=== PATIENT | female | born 1950 | race Caucasian/White ===

== ENCOUNTER → 2016-11-26 | Outpatient (CLI) | payer BC ==
[~2016-11-26] MED LIST: ASPCH81 PO; ATOR-54 PO; CHOL100027 PO; CLX/20 PO; HYDR12.56 PO; LEVO25TA PO; MULT-506 PO; PRED20TA PO
--- NOTE | 2016-11-26 13:29 | MAMMOGRAPHY REPORT ---
BILATERAL DIGITAL SCREENING MAMMOGRAM WITH CAD: 11/26/2016 CLINICAL HISTORY: Routine screening. Patient has no complaints. TECHNIQUE: Current study was also evaluated with a Computer Aided Detection (CAD) system. COMPARISON: Comparison is made to exams dated: 11/20/2015 mammogram, 11/17/2014 mammogram, 11/16/2013 mammogram, 11/13/2012 mammogram, and 05/05/2012 mammogram - [facility]. BREAST COMPOSITION: There are scattered areas of fibroglandular density in both breasts. FINDINGS: The parenchymal pattern is unchanged. No developing mass, architectural distortion or clu ster of suspicious microcalcifications is seen in either breast. IMPRESSION: ACR BI-RADS CATEGORY 2: BENIGN There is no mammographic evidence of malignancy. A 1 year screening mammogram is recommended. The p atient will receive written notification of the results. Approximately 10% of breast cancers are not detected with mammography. A negative mammographic repor t should not delay biopsy if a clinically suggestive mass is present. Shantel Funk M.D. ay/:11/26/2016 13:13:53 Notch Grinder: Chanda Guzmán, [facility] letter sent: Normal 1/2 BI-RADS Code: ACR BI-RADS Category 2: Benign
== END | disposition home or self-care (01) ==
LOC: C.MAMM 12:37
PROVIDERS: ATTEND Nurse Practitioner
DX: Z12.31 Encounter for screening mammogram for malignant neoplasm of breast (principal)

== ENCOUNTER 2016-12-06 21:19 | Emergency (ER) | payer BC ==
[~2016-12-06] VITALS: Ht 167.6 cm; Wt 88.3 kg
[~2016-12-06 21:19] MED LIST changes: -PRED20TA PO
[2016-12-06 21:29] VITALS: TEMP 37; Ht 167.6 cm; Wt 88.3 kg
[2016-12-06] MEDS ORDERED: OXYCODONE/ACETAMINOPHEN 5-325 TAB PO STA (22:11)
[2016-12-06] MEDS ORDERED: CIPROFLOXACIN HCL 0.3% OP SOLN 2.5 ML BTL OP ONE (22:15)
[2016-12-06] MEDS ORDERED: PRED20TA PO (22:19)
--- NOTE | 2016-12-06 22:22 | EMERGENCY ROOM VISIT NOTE ---
History Report prepared by Ashley: Shala Dailey Under the Supervision of: Dr. Matt Murry D.O. First contact with patient: 22:04 Chief Complaint: ALLERGIC REACTION Stated Complaint: EYES,REACTION TO SULFA EYE DROPS Nursing Triage Summary: patient reports she thought she had pink eye in right eye and used antibiotic drops from family,she reports it was sulfa and it is an allergy for her,patient eyes red and swollen History of Present Illness The patient is a 66 year old female who presents to the Emergency Room with complaints of a persistent allergic reaction with onset this evening. She rates her discomfort as a 6/10. The patient's family has recently had pink eye. This morning, the patient felt as if she had pink eye. She used some of the medicine her family had used. The patient used this medicine all day and noticed that her eyes started to become pink and swollen. When her read the ingredients on the bottle, they realized that the medication was a sulfa medication. She notes that she is allergic to medication. The patient has had a yellow discharge from her eyes. The patient did not take any Benadryl. Additionally, for about one week, the patient has had a sore throat. Source of History: patient Onset: this morning Position: eye Symptom Intensity: 6/10 Quality: other (allergic reaction) Timing: other (persistent) Associated Symptoms: + sorethroat Note: The patient has had a yellow discharge from her eyes. Review of Systems See HPI for pertinent positives & negatives. A total of 10 systems reviewed and were otherwise negative. Past Medical & Surgical Medical Problems: (1) GERD (gastroesophageal reflux disease) (2) Left bundle branch block Surgical Problems: (1) H/O cardiac catheterization (2) History of hysterectomy Family History Cancer Diabetes mellitus Heart disease Hypertension Social History Smoking Status: Never Smoker Alcohol Use: none Drug Use: none Marital Status: Occupation Status: employed Current/Historical Medications Scheduled Aspirin (Aspirin Tab-Chewable *), 81 MG PO DAILY Atorvastatin (Lipitor), 20 MG PO DAILY Cholecalciferol (Vitamin D 1000 Unit), 1,000 INTER.UNIT PO DAILY Citalopram (Citalopram Hydrobromide), 20 MG PO DAILY Hydrochlorothiazide (Hctz), 12.5 MG PO DAILY Levothyroxine Sodium (Synthroid), 25 MCG PO DAILY Multivitamin (Multivitamin), 1 TAB PO DAILY Prednisone (Prednisone), 2 TAB PO DAILY Allergies Coded Allergies: Sulfa Antibiotics (Verified Allergy, Unknown, UNKNOWN, 11/15/15) Albuterol (Verified Adverse Reaction, Unknown, racing heart, 11/15/15) Physical Exam Vital Signs Date Time Temp Pulse Resp B/P Pulse Ox O2 Delivery O2 Flow Rate FiO2 12/06/16 22:37 84 18 173/81 93 Room Air 12/06/16 21:29 37.0 55 18 145/92 96 Room Air Physical Exam CONSTITUTIONAL/VITAL SIGNS: Reviewed / noted above. GENERAL: Non-toxic in appearance. INTEGUMENTARY: Warm, dry, and [place]. HEAD: Normocephalic. EYES: Bilateral conjunctiva injection and scleral edema with a small amount of exudate. ENT/OROPHARYNX: clear and moist. LYMPHADENOPATHY/NECK: Is supple without lymphadenopathy or meningismus. RESPIRATORY: Lungs clear and equal. CARDIOVASCULAR: Regular rate and rhythm. GI/ABDOMEN: Soft and nontender. No organomegaly or pulsatile mass. No rebound or guarding. Normal bowel sounds. EXTREMITIES: Warm and well perfused. BACK: No CVA tenderness. NEUROLOGICAL: Intact without focal deficits. PSYCHIATRIC: normal affect. MUSCULOSKELETAL: Normally developed with good muscle tone. Medical Decision & Procedures Medications Administered Medications (Trade) Dose Ordered Sig/Terrence Route Start Time Stop Time Status Last Admin Dose Admin Prednisone (PredniSONE TAB) 60 mg NOW STAT PO 12/06/16 22:11 12/06/16 22:13 DC 12/06/16 22:20 60 MG Diphenhydramine HCl (Benadryl Cap) 50 mg NOW ONCE PO 12/06/16 22:15 12/06/16 22:16 DC 12/06/16 22:20 50 MG Ciprofloxacin HCl (Ciprofloxacin 0.3% Op Soln) 2 drops NOW ONCE OP 12/06/16 22:15 12/06/16 22:16 DC 12/06/16 22:19 2 DROPS Oxycodone/ Acetaminophen (Percocet 5-325mg Tab) 1 tab NOW STAT PO 12/06/16 22:11 12/06/16 22:13 DC 12/06/16 22:20 1 TAB ED Course 2204: Previous medical records were reviewed. The patient was evaluated in room B4. A complete history and physical examination was performed. 2210: Oxycodone/ Acetaminophen 1 tab PO, Prednisone 60 mg PO 2214: Ciprofloxacin HCl 2 drips OP, Benadryl Cap 50 mg PO 2219: On reevaluation, the patient is doing well. I discussed the results and findings with the patient. She verbalized agreement of the treatment plan. The patient was discharged home. Medical Decision The patient is a 66 year old female who presents to the ED with complaints of an allergic reaction. Differential diagnoses include: bacterial vs viral vs allergic causes. This is a 66-year-old female who presents to the ED with a chief complaint of bilateral conjunctival injection and scleral edema. The patient states that her daughter had pink eye and then her had pinkeye. She then developed pink eye this morning. She began using the antibiotic that her was using. It was soft lipase. She did not realize this until after she used several times today. She is allergic to sulfa antibiotics. As she was using them, she had increasing irritation to the eyes and some redness of the face around the eyes. Patient called her doctor came in for evaluation. The patient on exam has bilateral conjunctival injection as well as some exudate. She also has bilateral scleral edema. There is also some periorbital erythema. After evaluation, the patient was started on Benadryl and prednisone by mouth. She was given a Percocet and started on Ciloxan eyedrops. She is felt to be stable for discharge. She'll return for worsening. Impression Primary Impression: Conjunctivitis of both eyes Additional Impression: Allergic reaction Scribe Attestation The scribe's documentation has been prepared under my direction and personally reviewed by me in its entirety. I confirm that the note above accurately reflects all work, treatment, procedures, and medical decision making performed by me. Departure Information Dispostion Home / Self-Care Prescriptions Prednisone (Prednisone) 20 Mg Tab 2 TAB PO DAILY for 4 Days, #8 TAB Prov: Matt Murry D.O. 12/06/16 Referrals Rocio Hinojosa M.D. (PCP) Patient Instructions Conjunctivitis Infec Cause, ED Allergic Conjunctivitis, My [facility] Additional Instructions Take Benadryl 50mg every 6 hours for allergic reaction. Ciloxan eye drops: 2 drops to the eyes every 2-3 hours while awake. Prednisone as prescribed. Problem Qualifiers
[2016-12-06 22:37] VITALS: BP 173/81; PULSE 84; O2SAT 93
== END 2016-12-06 22:38 | disposition home or self-care (01) ==
LOC: C.EDB 21:20
DX: H10.9 Unspecified conjunctivitis (principal); T78.40XA Allergy, unspecified, initial encounter; K21.9 Gastro-esophageal reflux disease without esophagitis; I44.7 Left bundle-branch block, unspecified; Z90.710 Acquired absence of both cervix and uterus; Z79.82 Long term (current) use of aspirin; Z80.9 Family history of malignant neoplasm, unspecified; Z83.3 Family history of diabetes mellitus

== ENCOUNTER → 2017-04-11 | Outpatient (CLI) | payer BC ==
[2017-04-11 18:57] LABS: BLOOD UREA NITROGEN 20 mg/dl (7-18); BUN/CREATININE RATIO 24.3 (10-20); CARBON DIOXIDE 28 mmol/L (21-32); CHLORIDE 106 mmol/L (98-107); CREATININE 0.83 mg/dl (0.60-1.20); GLUCOSE 132 mg/dl (70-99); POTASSIUM 3.7 mmol/L (3.5-5.1); SODIUM 142 mmol/L (136-145)
[2017-04-11 18:58] LABS: CALCIUM 9.2 mg/dl (8.5-10.1)
== END | disposition home or self-care (01) ==
LOC: C.LABPVFM 14:53
PROVIDERS: ATTEND Nurse Practitioner
DX: M85.80 Other specified disorders of bone density and structure, unspecified site (principal); I10 Essential (primary) hypertension

== ENCOUNTER → 2017-10-07 | Outpatient (CLI) | payer BC | END | disposition home or self-care (01) | LOC: C.LABPVFM 10:37 | PROVIDERS: ATTEND Nurse Practitioner | DX: E03.9 Hypothyroidism, unspecified (principal) ==

== ENCOUNTER → 2017-11-28 | Outpatient (CLI) | payer BC ==
--- NOTE | 2017-12-01 07:39 | MAMMOGRAPHY REPORT ---
BILATERAL DIGITAL SCREENING MAMMOGRAM TOMOSYNTHESIS WITH CAD: 11/28/2017 CLINICAL HISTORY: Routine screening. Patient has no complaints. TECHNIQUE: Breast tomosynthesis in addition to standard 2D mammography was performed. Current study was also evaluated with a Computer Aided Detection (CAD) system. COMPARISON: Comparison is made to exams dated: 11/26/2016 mammogram, 11/20/2015 mammogram, 11/17/2014 m ammogram, 11/16/2013 mammogram, 11/13/2012 mammogram, and 05/12/2012 ultrasound - [facility]. BREAST COMPOSITION: There are scattered areas of fibroglandular density in both breasts. FINDINGS: No suspicious masses, calcifications, or areas of architectural distortion are noted in ei ther breast. There has been no significant interval change compared to prior exams. IMPRESSION: ACR BI-RADS CATEGORY 1: NEGATIVE There is no mammographic evidence of malignancy. A 1 year screening mammogram is recommended. The pa tient will receive written notification of the results. Approximately 10% of breast cancers are not detected with mammography. A negative mammographic report should not delay biopsy if a clinically suggestive mass is present. Hanane Huang M.D. /:11/28/2017 14:55:18 Jd Edwards: Cahnda Guzmán [facility] letter sent: Normal /2 BI-RADS Code: ACR BI-RADS Category 1: Negative
== END | disposition home or self-care (01) ==
LOC: C.MAMM 13:43
PROVIDERS: ATTEND Nurse Practitioner
DX: Z12.31 Encounter for screening mammogram for malignant neoplasm of breast (principal)

== ENCOUNTER 2020-03-21 22:33 | Inpatient (IN) ==
[2020-03-21] MEDS ORDERED: SODIUM CHLORIDE 0.9% 1000ML 500 ML IV ONE (22:55)
[2020-03-21] MEDS ORDERED: dilTIAZem HCl 5 MG/ML 5 ML VIAL IV STA (22:55)
[2020-03-21] MEDS ORDERED: dilTIAZem HCL 125 MG in DEXTROSE 5% 100 ML IV SCH (23:00)
--- NOTE | 2020-03-21 23:01 | Emergency Department Note ---
Impression & Plan Atrial fibrillation, Enteritis, Palpitations, Elevated liver enzymes, Hypokalemia, Thrombocytopenia, Neutropenia ED Provider Note NAME: KANE MOJICA AGE: 69 SEX: F : 1950 ARRIVES VIA: Ambulance INFORMANT: [Patient][ems, nurses] ED PROVIDER(S): [Asif Silverman MD] CHIEF COMPLAINT: Palpitations HISTORY OF PRESENT ILLNESS: The patient is a 69-year-old female who presents with just over 2 hours of palpitations and a fast heart rate. She was slightly short of breath and weak. No real chest pain. The patient presents by EMS. The patient was here 2 days ago and diagnosed with enteritis. This was diagnosed by lab work and CT. The patient had been vomiting. The patient states that her enteritis actually seems to be getting better. She is tolerating oral intake, no further vomiting. She is still running a low- grade fever though at times. There has been no diarrhea. The patient did take a nitroglycerin at home. She has never had to use this medication before. It really did not help her symptoms. The patient denies current chest pain. She feels better than she did before arrival. She still feels her heart beating quick and sometimes irregular. She has no history of A. fib or A flutter. She has had no sick contacts. No known coronavirus exposures however, she does have a coronavirus test pending from 2 days ago. REVIEW OF SYSTEMS: See HPI for pertinent positives and negatives. A total of ten systems were reviewed and were otherwise negative. PMHx/PSHx: See Below SOCIAL HISTORY: See Below. PHYSICAL EXAM: GENERAL: Patient is in no acute distress. HEENT: No acute trauma, normocephalic atraumatic, mucous membranes moist, no nasal congestion, no scleral icterus. NECK: No stridor, no adenopathy, no meningismus, trachea is midline. LUNGS: Clear to auscultation bilaterally, no wheeze, no rhonchi, breath sounds equal. HEART: No murmurs, tachycardic with an irregular rhythm. ABDOMEN: Soft, nontender, bowel sounds positive, no hernias, no peritonitis. EXTREMITIES: No cyanosis or edema, full range of motion of all the joints without pain or difficulty, no signs for acute trauma. NEUROLOGIC: Oriented x 3, no acute motor or sensory deficits, no focal weakness. SKIN: No rash, no jaundice, no diaphoresis. DIFFERENTIAL DIAGNOSIS: Infection, dehydration, metabolic abnormality, A. fib or a flutter, dysrhythmia, IA, coronavirus, hypo/hyperglycemia, electrolyte disturbance, anemia, hypoxia, c ardiac sources, intracerebral event, toxicologic, neurologic, as well as other pathologies. EMERGENCY DEPARTMENT COURSE/PROCEDURES: ECG: Indication was palpitations. The EKG shows atrial fibrillation with a left bundle branch block. The rate is 127. QTc is 560. There are some subtle ST elevations consistent with the bundle branch block. There are no PVCs. Repeat EKG: Indication was palpitations. There is a normal sinus rhythm with a rate of 69. The QTc is 467. There is a left bundle branch block. No ST elevation, no PVCs. Compared to the EKG from earlier today, the rate is now decreased. There is a normal sinus rhythm in place of atrial fibrillation. Continuous Cardiac Monitoring: An order was placed for continuous cardiac monitoring. The monitor shows a rate of 70 with normal sinus rhythm. Critical Care Note: I have personally spent greater than 32 minutes of critical care time in the direct management of this patient. This includes bedside care, interpretation of diagnostic studies, and testing, discussion with consultants, patient, and family members, and other required patient management activities. This 32 minutes is in excess of all separately billable procedures. MEDICAL DECISION MAKING: There is a low white blood cell count. The patient is technically neutropenic. Platelet count is also low at 79. There is no anemia. No coagulopathy. Potassium somewhat low at 3.3, no kidney failure. The patient does have liver enzyme elevations, the bilirubin though is normal. Cardiac enzyme testing x1 is not consistent with acute cardiac injury. The patient's TSH level was high, the T4 though was normal. Chest film does not show pneumonia or CHF. EKG showed a rapid A. fib with a left bundle branch block. I repeat EKG showed conversion to a sinus rhythm. The patient received IV saline, 500 cc. She was given IV potassium. The patient spontaneously converted to a sinus rhythm during her ED stay. She is currently resting fairly comfortably. The patient presents with palpitations and was found to be in rapid A. fib. She self converted to a sinus rhythm. She has findings on her laboratory testing indicating neutropenia. She has elevated liver enzymes. I do think a hospital stay is warranted. She needs further monitoring and work-up. Of note, because of the lower platelet count and reported fever, I have ordered for anaplasmosis testing. This result is pending. Of note, the patient has been in isolation as she has a pending coronavirus test. She has no cough or congestion. Case management has been involved. The patient is aware of her findings thus far. The on-call hospitalist was consulted. The reason for her entire presentation and symptom complex is currently unclear. Past Med/Surg History Medical History Concussion (Inactive) GERD (gastroesophageal reflux disease) Hemorrhoids History of coronary artery disease Hyperlipidemia (Chronic) Hypertension (Chronic) Hypothyroidism (Chronic) Infected lesion in nose Left bundle branch block INEZ (obstructive sleep apnea) (Chronic) Surgical History H/O cardiac catheterization History of back surgery History of bilateral oophorectomy History of hernia surgery Hx of hysterectomy Family History Father Hypertension Heart disease Mother Stroke Other Breast cancer Myocardial infarction No family history of adverse response to anesthesia No family history of bleeding disorder Denies family history of Ovarian cancer Prostate cancer Colorectal cancer Social History Preferred Language: Sami marital status: Current Living Situation: Spouse current occupational status: retired Feels Safe at Home: Yes Smoking Status: Never smoker Hx Alcohol Use: Yes Alcohol type: wine Alcohol Intake Frequency: Holidays/Special Occasions Hx Substance Use: No caffeine: Yes Dental Care, Regularly: Yes Physical Activity Frequency: 1-2 Times per Week Seatbelt Use: always Sunscreen Use: Yes Allergies Allergies Allergy/AdvReac Type Severity Reaction Status Date / Time Sulfa (Sulfonamide Allergy Unknown UNKNOWN Verified 03/21/20 22:58 Antibiotics) citalopram [From Celexa] Allergy Unknown Verified 03/21/20 22:58 albuterol AdvReac Unknown racing Verified 03/21/20 22:58 heart Home Meds Home Medications Medication Instructions Recorded Confirmed aspirin 81 mg tablet,delayed 81 mg PO PM 07/24/19 03/21/20 release hydrochlorothiazide 12.5 mg capsule 12.5 mg PO QAM 07/24/19 03/21/20 multivitamin 1 tab PO PM 07/24/19 03/21/20 cholecalciferol (vitamin D3) 25 2,000 units PO PM 07/26/19 03/21/20 mcg (1,000 unit) capsule nitroglycerin 0.4 mg sublingual 0.4 mg SL Q5M PRN 07/26/19 03/21/20 tablet psyllium husk 3.4 gram/5.4 gram 1 tbs PO DAILY PRN 03/10/20 03/21/20 oral powder atorvastatin 20 mg PO HS 03/19/20 03/21/20 diclofenac sodium 75 mg PO BID 03/19/20 03/21/20 levothyroxine 25 mcg PO QAM 03/19/20 03/21/20 sertraline [Zoloft] 50 mg PO PM 03/19/20 03/21/20 lorazepam 1 mg PO Q8 PRN 03/21/20 03/21/20 Results & Data (ED) Vital Signs Vital Signs - 24 hr 03/21/20 22:35 03/21/20 22:49 03/21/20 22:52 Temperature 37 C Temperature Source Oral Pulse Rate 115 H Pulse Rate [Apical] 74 Pulse Rhythm Regular Irregular Pulse Strength Normal Respiratory Rate 22 22 Respiratory Effort / Characteristics Non-Labored Spontaneous Respiratory Depth Normal Respiratory Pattern Regular Blood Pressure 147/102 H Blood Pressure [Right Arm] 112/73 Blood Pressure Mean 117 Blood Pressure Mean [Right Arm] 86 Blood Pressure Position Lying Pulse Oximetry 96 96 Oxygen Delivery Method Room Air Room Air Room Air Sepsis Recent Fever Within 48 Hours Yes Sepsis New/Unexplained Change in Mental Status No Sepsis Action Taken by Nursing Physician Notified 03/22/20 00:10 03/22/20 00:32 Temperature Temperature Source Pulse Rate Pulse Rate [Apical] 75 67 Pulse Rhythm Pulse Strength Respiratory Rate 12 15 Respiratory Effort / Characteristics Respiratory Depth Respiratory Pattern Blood Pressure Blood Pressure [Right Arm] 143/92 H 136/79 Blood Pressure Mean Blood Pressure Mean [Right Arm] 109 98 Blood Pressure Position Pulse Oximetry 97 97 Oxygen Delivery Method Room Air Room Air Sepsis Recent Fever Within 48 Hours Sepsis New/Unexplained Change in Mental Status Sepsis Action Taken by Mcfp Medications Current Medication List: was personally reviewed by me Laboratory Data Attestation: I reviewed the patient's lab results. Result diagrams: 03/21/20 23:42 03/21/20 23:42 Lab Results 03/21/20 03/21/20 03/21/20 Range/Units 23:42 23:42 23:42 WBC 1.32 L (4.8-10.8) K/uL RBC 4.10 L (4.2-5.4) M/uL Hgb 13.1 (12.0-16.0) g/dL Hct 38.5 (37-47) % MCV 93.9 (80-100) fL MCH 32.0 (25-34) pg MCHC 34.0 (32-36) g/dL RDW Std Deviation 47.9 H (36.4-46.3) fL RDW Coeff of Vito 13.9 (11.5-14.5) % Plt Count 79 L (130-400) K/uL MPV 12.0 H (7.4-10.4) fL Immature Gran % (Auto) 0.0 % Neut % (Auto) 44.7 % Lymph % (Auto) 40.9 % Mcminn % (Auto) 12.9 % Eos % (Auto) 0.0 % Baso % (Auto) 1.5 % Immature Gran # (Auto) 0.00 (0.00-0.02) K/uL Neut # (Auto) 0.59 L* (1.4-6.5) K/uL Lymph # (Auto) 0.54 L (1.2-3.4) K/uL Mcminn # (Auto) 0.17 (0.11-0.59) K/uL Eos # (Auto) 0.00 (0-0.5) K/uL Baso # (Auto) 0.02 (0-0.2) K/uL Platelet Estimate Decreased L (Normal) PT 10.7 (9.0-12.0) Seconds INR 1.0 (0.9-1.1) APTT 27.0 (21.0-31.0) Seconds PTT Ratio 1.0 Sodium 142 (136-145) mmol/L Potassium 3.3 L (3.5-5.1) mmol/L Chloride 110 H (98-107) mmol/L Carbon Dioxide 25 (21-32) mmol/L Anion Gap 7.0 (3-11) BUN 17 (7-18) mg/dl Creatinine 0.79 (0.6-1.2) mg/dl Est Cr Clr Drug Dosing 78.6 ml/min Est GFR ( Amer) 88.5 Est GFR (Non-Af Amer) 76.4 BUN/Creatinine Ratio 21.0 H (10-20) Glucose 141 H (70-99) mg/dl Calcium 8.2 L (8.5-10.1) mg/dl Magnesium 2.0 (1.8-2.4) mg/dl Total Bilirubin 0.6 (0.2-1) mg/dl AST 186 H (15-37) U/L ALT 168 H (12-78) U/L Alkaline Phosphatase 177 H (45-117) U/L Troponin I < 0.015 (0-0.045) ng/ml Total Protein 7.0 (6.4-8.2) gm/dl Albumin 3.1 L (3.4-5.0) gm/dl Globulin 3.9 (2.5-4.0) gm/dl Albumin/Globulin Ratio 0.8 L (0.9-2) TSH 6.600 H (0.300-4.500) uIu/ml Free T4 1.23 (0.8-1.6) ng/dl Administered Medications Diltiazem HCl 125 mg/ Dextrose 125 mls @ 5 mls/hr IV .Q24H [facility]; Protocol Stop: 04/20/20 22:59 Last Admin: 03/21/20 23:55 Dose: Not Given Documented by: [id number] Potassium Chloride (K Oniel / Wtr) 10 meq in 100 mls @ 100 mls/hr IV ONE ONE Stop: 03/22/20 01:12 Last Admin: 03/22/20 00:32 Dose: 100 mls/hr Documented by: [id number] Discontinued Medications Diltiazem HCl (Cardizem) 15 mg IV NOW STA Stop: 03/21/20 22:56 Last Admin: 03/21/20 23:55 Dose: Not Given Documented by: [id number] Sodium Chloride (Nss 1000ml) 500 mls @ 999 mls/hr IV .Q31M ONE Stop: 03/21/20 23:25 Last Infusion: 03/21/20 23:56 Dose: 0 mls/hr Documented by: [id number] Admin: 03/21/20 23:00 Dose: 999 mls/hr Documented by: [id number] Imaging Data Attestation: I personally reviewed and interpreted this imaging study as follows: My Impression: Chest film: The patient does not have any pneumonia, CHF or pneumothorax. There is no mediastinal widening. The lungs appear clear. Blood Pressure Blood Pressure Findings: Elevated blood pressure Blood Pressure Disposition: further management by hospitalist Discharge Plan Visit Data Chief Complaint: Chest Pain Stated Complaint: CHEST PAIN, SOB ED Provider: Asif Silverman Discharge Problem: Atrial fibrillation, Enteritis, Palpitations, Elevated liver enzymes, Hypokalemia, Thrombocytopenia, Neutropenia Patient Disposition: Being Evaluated by Hospitalist Condition: Good Forms Stand Alone Forms: My [facility] [employer] Prescriptions Prescriptions: No Action aspirin 81 mg tablet,delayed release (DR/EC) 81 mg PO PM RF: 0 hydrochlorothiazide 12.5 mg capsule 12.5 mg PO QAM RF: 0 multivitamin tablet 1 tab PO PM RF: 0 nitroglycerin 0.4 mg tablet, sublingual 0.4 mg SL Q5M PRN (Reason: Chest Pain) RF: 0 cholecalciferol (vitamin D3) 1,000 unit capsule 2,000 units PO PM RF: 0 Metamucil 3.4 gram/5.4 gram powder 1 tbs PO DAILY PRN (Reason: Constipation) RF: 0 atorvastatin 20 mg tablet 20 mg PO HS RF: 0 levothyroxine 25 mcg tablet 25 mcg PO QAM RF: 0 diclofenac sodium 75 mg tablet,delayed release (DR/EC) 75 mg PO BID RF: 0 sertraline [Zoloft] 50 mg tablet 50 mg PO PM RF: 0 lorazepam 1 mg Tablet 1 mg PO Q8 PRN (Reason: Anxiety) RF: 0 Referrals Referrals: Jeanine Reyes CRNP [Primary Care Provider] - Discharge Problem: Atrial fibrillation Qualifiers: Atrial fibrillation type: paroxysmal Qualified Code(s): I48.0 - Paroxysmal atrial fibrillation Neutropenia Qualifiers: Neutropenia type: unspecified Qualified Code(s): D70.9 - Neutropenia, unspecified
[2020-03-22 00:08] LABS: Prothrombin Time 10.7 Seconds (9.0-12.0)
[2020-03-22 00:09] LABS: Alanine Aminotransferase 168 U/L (12-78); Albumin Level 3.1 gm/dl (3.4-5.0); Aspartate Aminotransferase 186 U/L (15-37); Blood Urea Nitrogen 17 mg/dl (7-18); Calcium 8.2 mg/dl (8.5-10.1); Carbon Dioxide 25 mmol/L (21-32); Chloride 110 mmol/L (98-107); Creatinine Clr Calc Pharmacy 78.6 ml/min; Est GFR (African American) 88.5; Est GFR (Non-African American) 76.4; Glucose 141 mg/dl (70-99); Potassium 3.3 mmol/L (3.5-5.1); Sodium 142 mmol/L (136-145)
[2020-03-22] MEDS ORDERED: POTASSIUM CHLORIDE / WTR 10 MEQ/100 ML PLCT IV ONE (00:13)
[2020-03-22 00:20] LABS: Albumin Globulin Ratio 0.8 (0.9-2); Alkaline Phosphatase 177 U/L (45-117); Bilirubin,Total 0.6 mg/dl (0.2-1); Globulin 3.9 gm/dl (2.5-4.0); Troponin I < 0.015 ng/ml (0-0.045)
[2020-03-22 00:32] LABS: T4 Free Thyroxine 1.23 ng/dl (0.8-1.6)
[2020-03-22 00:40] LABS: Hematocrit (blood only) 38.5 % (37-47); Hemoglobin 13.1 g/dL (12.0-16.0); Mean Corpuscular Volume 93.9 fL (80-100); Platelet Count 79 K/uL (130-400); RDW Coefficient of Variation 13.9 % (11.5-14.5); RDW Standard Deviation 47.9 fL (36.4-46.3); White Blood Count 1.32 K/uL (4.8-10.8)
[2020-03-22 00:43] LABS: Basophils # (auto) 0.02 K/uL (0-0.2); Basophils % (auto) 1.5 %; Lymphocytes # (auto) 0.54 K/uL (1.2-3.4); Lymphocytes % (auto) 40.9 %; Monocytes # (auto) 0.17 K/uL (0.11-0.59); Monocytes % (auto) 12.9 %; Neutrophils # (auto) 0.59 K/uL (1.4-6.5); Neutrophils % (auto) 44.7 %; Platelet Estimate Decreased (Normal)
[2020-03-22] MEDS ORDERED: DOXYCYCLINE HYCLATE 100 MG in DEXTROSE 5% 100 ML IV STA (02:19)
--- NOTE | 2020-03-22 03:51 | History & Physical Report ---
Date of Service March 22, 2020 Assessment & Plan (1) Atrial fibrillation with rapid ventricular response: New onset atrial fibrillation with RVR/CAD/hypertension/LBBB- The patient will be admitted to telemetry for serial cardiac enzymes, serial EKG's, cardiac rhythm monitoring and a 2-D echocardiogram with Dopplers. Responded in the ED to diltiazem 15 mg IV, and then diltiazem drip at 5 mg/h. For now, continue. Optimize potassium both orally and IV Repeat laboratories in a.m. Continue aspirin 81 mg daily. Hold diclofenac and HCTZ. Present on Admission?: Yes (2) Neutropenia: Neutropenia/thrombocytopenia/generalized myalgias and arthralgias/fatigue/elevated liver enzymes- Patient is exposed to ticks where she lives, but is unaware of any direct tick bite. We will check testing for anaplasmosis the antibodies and peripheral smear, Ehrlichiosis and Lyme disease. Empiric treatment with doxycycline 100 mg IV now and then every 12 hours. COVID-19 testing was ordered on 03/19/2020, and is still pending at this time. Patient will be admitted with neutropenic/airborne/droplet precautions. Present on Admission?: Yes (3) Thrombocytopenia: See above Present on Admission?: Yes (4) Elevated liver enzymes: Increased AST and ALT compared to 2 days previously. Likely part of the symptom complex of anaplasmosis, however, will check acute hepatitis profile. Repeat laboratories in a.m. Present on Admission?: Yes (5) CAD in tribe artery: See above Present on Admission?: Yes (6) Depression with anxiety: Continue sertraline 50 mg every evening Present on Admission?: Yes (7) Hyperlipidemia: Continue atorvastatin 20 mg at bedtime Present on Admission?: Yes (8) Hypothyroidism: Continue levothyroxine sodium 25 mcg every morning Present on Admission?: Yes (9) Hypertension: See above Present on Admission?: Yes (10) Left bundle branch block: See above Present on Admission?: Yes (11) INEZ (obstructive sleep apnea): CPAP if needed Present on Admission?: Yes History of Present Illness Chief Complaint: The patient presents to the emergency department with complaint of rapid heart rate and palpitations that began about 2 hours prior to arrival. Primary Care Provider: MYRIAM Casillas The patient is a 69-year-old female with a past medical history including CAD, anxiety with depression, GERD, osteopenia, obstructive sleep apnea, left bundle branch block, hypo-thyroidism, hypertension and hyperlipidemia. She initially presented to the emergency department on 03/19/2020 with complaint of nausea and vomiting, and underwent laboratory studies and CT of abdomen pelvis which suggested an enteritis. Patient reports those symptoms have almost completely resolved at this point, she is had no further vomiting, and is having normal intake at this time. In the emergency department tonight, EKG and monitor showed atrial fibrillation with RVR, for which, the patient received kaizen 15 mg IV push, followed by diltiazem infusion at 5 mg/h, with conversion of her heart rate to normal sinus rhythm. Laboratories also revealed new findings from most recent labs 2 days ago, which include: Abnormal AST 186 and ALT 168. ANC has decreased from 1.78-0.59, and platelets have decreased to 89. Potassium is decreased from 3.7-3.3. The patient continues to have significant generalized myalgias and arthralgias. Upon questioning, she does report living in an area where there are significant number of ticks, but denies any overt tick bite that she is aware of. Allergies Allergy/AdvReac Type Severity Reaction Status Date / Time Sulfa (Sulfonamide Allergy Unknown UNKNOWN Verified 03/21/20 22:58 Antibiotics) citalopram [From Celexa] Allergy Unknown Verified 03/21/20 22:58 albuterol AdvReac Unknown racing Verified 03/21/20 22:58 heart Home Medications Home Medications Medication Instructions Recorded Confirmed Type aspirin 81 mg tablet,delayed 81 mg PO PM 07/24/19 03/21/20 History release hydrochlorothiazide 12.5 mg capsule 12.5 mg PO QAM 07/24/19 03/21/20 History multivitamin 1 tab PO PM 07/24/19 03/21/20 History cholecalciferol (vitamin D3) 25 2,000 units PO PM 07/26/19 03/21/20 History mcg (1,000 unit) capsule nitroglycerin 0.4 mg sublingual 0.4 mg SL Q5M PRN 07/26/19 03/21/20 History tablet psyllium husk 3.4 gram/5.4 gram 1 tbs PO DAILY PRN 03/10/20 03/21/20 History oral powder atorvastatin 20 mg PO HS 03/19/20 03/21/20 History diclofenac sodium 75 mg PO BID 03/19/20 03/21/20 History levothyroxine 25 mcg PO QAM 03/19/20 03/21/20 History sertraline [Zoloft] 50 mg PO PM 03/19/20 03/21/20 History lorazepam 1 mg PO Q8 PRN 03/21/20 03/21/20 History Past Med/Surg History Medical History Concussion (Inactive) GERD (gastroesophageal reflux disease) Hemorrhoids History of coronary artery disease Hyperlipidemia (Chronic) Hypertension (Chronic) Hypothyroidism (Chronic) Infected lesion in nose Left bundle branch block INEZ (obstructive sleep apnea) (Chronic) Surgical History H/O cardiac catheterization History of back surgery History of bilateral oophorectomy History of hernia surgery Hx of hysterectomy Family History Father Hypertension Heart disease Mother Stroke Other Breast cancer Myocardial infarction No family history of adverse response to anesthesia No family history of bleeding disorder Denies family history of Ovarian cancer Prostate cancer Colorectal cancer Social History Preferred Language: Senegalese marital status: Current Living Situation: Spouse current occupational status: retired Feels Safe at Home: Yes Smoking Status: Never smoker Hx Alcohol Use: Yes Alcohol type: wine Alcohol Intake Frequency: Holidays/Special Occasions Hx Substance Use: No caffeine: Yes Dental Care, Regularly: Yes Physical Activity Frequency: 1-2 Times per Week Seatbelt Use: always Sunscreen Use: Yes Review of Systems Review of Systems: The patient denies lower extremity swelling, sore throat, fevers, chills, sweats, nausea, vomiting, diarrhea , constipation, abdominal pain, pelvic pain, blood in urine or stool, dysuria, urinary frequency or urgency, lightheadedness, dizziness, headache, memory loss, loss of consciousness, rash, abnormal bruising or bleeding, imbalance, focal or generalized weakness, numbness or tingling in arms or legs, or night sweats. The review of systems is otherwise negative other than for that already noted above, and at least 10 systems have been reviewed. Physical Exam Physical Exam: The patient is awake, alert and oriented 3, well developed and well nourished, normocephalic and atraumatic, lying in bed and in no acute distress. HEENT--PERRL, EOMI, mucous membranes and oropharynx normal. Neck--supple. No JVD. No bruits. Thyroid normal, trachea midline, no adenopathy. Heart--normal S1 and S2. No murmurs, rubs or gallops. Lungs--clear bilaterally, no respiratory distress, no accessory muscle use. Abdomen--normal bowel sounds and soft. Nontender. Nondistended. Extremities--no cyanosis or clubbing. No edema. Dermatologic--normal skin turgor, normal color, no abnormal lymph nodes, no rash. Neurologic--cranial nerves II through XII grossly intact. Rheumatologic--normal range of motion. Psychiatric--normal affect. Results & Data Results & Data ([facility]) Vital Signs (Past 12 Hours) Vital Signs Temp Pulse Pulse Resp BP BP Pulse Ox 03/22/20 03:18 65 17 139/76 95 03/22/20 02:30 62 13 141/84 H 97 03/22/20 01:19 73 23 139/83 97 03/22/20 00:32 67 15 136/79 97 03/22/20 00:10 75 12 143/92 H 97 03/21/20 22:49 98.6 F 115 H 22 147/102 H 96 03/21/20 22:35 74 22 112/73 96 Laboratory Results Laboratory Results WBC 1.32 K/uL (4.8-10.8) L 03/21/20 23:42 RBC 4.10 M/uL (4.2-5.4) L 03/21/20 23:42 Hgb 13.1 g/dL (12.0-16.0) 03/21/20 23:42 Hct 38.5 % (37-47) 03/21/20 23:42 MCV 93.9 fL (80-100) 03/21/20 23:42 MCH 32.0 pg (25-34) 03/21/20 23:42 MCHC 34.0 g/dL (32-36) 03/21/20 23:42 RDW Std Deviation 47.9 fL (36.4-46.3) H 03/21/20 23:42 RDW Coeff of Vito 13.9 % (11.5-14.5) 03/21/20: Plt Count 79 K/uL (130-400) L 03/21/20: MPV 12.0 fL (7.4-10.4) H 03/21/20 23: Immature Gran % (Auto) 0.0 % 03/21/20 23: Neut % (Auto) 44.7 % 03/21/20 23: Lymph % (Auto) 40.9 % 03/21/20 23: [place] % (Auto) 12.9 % 03/21/20: Eos % (Auto) 0.0 % 03/21/20: Baso % (Auto) 1.5 % 03/21/20: Immature Gran # (Auto) 0.00 K/uL (0.00-0.02) 03/21/20: Neut # (Auto) 0.59 K/uL (1.4-6.5) L* 03/21/20: Lymph # (Auto) 0.54 K/uL (1.2-3.4) L 03/21/20 23: [place] # (Auto) 0.17 K/uL (0.11-0.59) 03/21/20: Eos # (Auto) 0.00 K/uL (0-0.5) 03/21/20: Baso # (Auto) 0.02 K/uL (0-0.2) 03/21/20: Platelet Estimate Decreased (Normal) L 03/21/20: PT 10.7 Seconds (9.0-12.0) 03/21/20: INR 1.0 (0.9-1.1) 03/21/20: APTT 27.0 Seconds (21.0-31.0) 03/21/20: PTT Ratio 1.0 03/21/20 23: Sodium 142 mmol/L (136-145) 03/21/20: Potassium 3.3 mmol/L (3.5-5.1) L 03/21/20: Chloride 110 mmol/L (98-107) H 03/21/20 23:42 Carbon Dioxide 25 mmol/L (21-32) 03/21/20 23:42 Anion Gap 7.0 (3-11) 03/21/20 23:42 BUN 17 mg/dl (7-18) 03/21/20 23:42 Creatinine 0.79 mg/dl (0.6-1.2) 03/21/20 23:42 Est Cr Clr Drug Dosing 78.6 ml/min 03/21/20 23:42 Est GFR ( Amer) 88.5 03/21/20 23:42 Est GFR (Non-Af Amer) 76.4 03/21/20 23:42 BUN/Creatinine Ratio 21.0 (10-20) H 03/21/20 23:42 Glucose 141 mg/dl (70-99) H 03/21/20 23:42 Calcium 8.2 mg/dl (8.5-10.1) L 03/21/20 23:42 Magnesium 2.0 mg/dl (1.8-2.4) 03/21/20 23:42 Total Bilirubin 0.6 mg/dl (0.2-1) 03/21/20 23:42 AST 186 U/L (15-37) H 03/21/20 23:42 ALT 168 U/L (12-78) H 03/21/20 23:42 Alkaline Phosphatase 177 U/L (45-117) H 03/21/20 23:42 Troponin I < 0.015 ng/ml (0-0.045) 03/21/20 23:42 Total Protein 7.0 gm/dl (6.4-8.2) 03/21/20 23:42 Albumin 3.1 gm/dl (3.4-5.0) L 03/21/20 23:42 Globulin 3.9 gm/dl (2.5-4.0) 03/21/20 23:42 Albumin/Globulin Ratio 0.8 (0.9-2) L 03/21/20 23:42 TSH 6.600 uIu/ml (0.300-4.500) H 03/21/20 23:42 Free T4 1.23 ng/dl (0.8-1.6) 03/21/20 23:42 Diagnostic Findings [facility], [place] [phone] CT Scan Report Patient: KANE MOJICA EAdmit Date: 03/19/20 MR#: [id number]: [id number] [facility] Acct ID:[id number]: Date: 1950City Zip: [place] [address] Age: 69Location: ED Sex: F Room/Bed: Att Phy:Diagnosis: FEVER CHILLS TIRED VOMITING Jody Phy: Jeanine Reyes CRNPService Date: 03/19/20 Fam Phy:Interpreting Phy: Jimmy Hanna MD Admit Phy: Ordering Phy: Sai Barros MD cc: ~ CT OF THE ABDOMEN AND PELVIS WITHOUT CONTRAST CLINICAL HISTORY: vomiting, LLQ abd pain COMPARISON STUDY: CT of the abdomen and pelvis February 13, 2010. Abdominal series November 15, 2015. TECHNIQUE: Axial images of the abdomen and pelvis were obtained without IV contrast. Images were reviewed in the axial, sagittal, and coronal planes. Automated exposure control was utilized for the study. A dose lowering technique was utilized adhering to the principles of ALARA. FINDINGS: Imaged portions of the lower chest demonstrate innumerable small groundglass nodules that measure up to 5 mm. Many of these appear cavitary/cystic. No pneumatosis, free air or portal venous gas is present. An 8 mm hypodense segment 8 hepatic lesion is likely benign but suboptimally assessed on this unenhanced exam. The spleen, adrenal glands, kidneys and pancreas are unremarkable. There are no urinary calculi. There is no hydronephrosis. Trace ascites within the pelvis is noted. The appendix is normal. There is minimal infiltration adjacent to several left lower quadrant small bowel loops. There is possible mild bowel wall thickening, suboptimally assessed on this unenhanced exam. There is no evidence for a bowel obstruction. No lymphadenopathy is present. No biliary or pancreatic ductal dilatation is present. IMPRESSION: 1. Minimal mesenteric infiltration associated with several left lower quadrant small bowel loops with possible mild bowel wall thickening. The findings suggest a nonspecific enteritis. Trace ascites within the pelvis. No bowel obstruction. Normal appendix. 2. No urinary calculi or hydronephrosis. 3. Numerous tiny groundglass nodules within the lower lungs, many of which are cystic/cavitary. These are nonspecific and a nonemergent chest CT is recommended. ACT 112: Negative or not required by law. Electronically signed by: Jimmy Hanna M.D. 03/19/2020 6:46 PM Dictated: 03/19/201834 Transcribed: 03/19/201834 [facility] Patient: KANE MOJICA (Female) : 50 Status: ER Date: 03/22/20 01:17 Room #: History: ABNORMAL FINDINGS ON ABD CT FROM 03-19-2020, PENDING COVID, COUGH Slices: 370 Priors: Tech: Attila Lovett @ [phone] Exams: CT CHEST Without Contrast Accession Numbers: [id number] Preliminary Findings Only See Final Report For Complete Findings CT CHEST Without Contrast: The innumerable micronodular changes noted throughout the lungs, most notable in the lower lobes are not typical for active viral infection. Differential consideration includes incidental granulomatous disease, small airways disease with mucoid impaction, alveolitis, metastatic disease or, miliary/disseminated TB. No lobar consolidation. No pleural effusion or pneumothorax. Subsegmental linear changes at the lung bases are most consistent with subsegmental atelectasis. The unenhanced thoracic aorta is normal in caliber. The cardiac chambers are unremarkable. No pericardial effusion. Nonspecific paratracheal and AP window lymph nodes without significant lymphadenopathy. Questionable subcentimeter hypodense structure in the right lobe of the liver is poorly defined without contrast (series 2; image 49). Nonemergent imaging may be performed if there is clinical concern for underlying neoplasia. No acute osseous or significant overlying soft tissue abnormality. Radiologist: Osmar Ko MD Study ready at 01:17 and initial results transmitted at 01:30 *This report constitutes a preliminary interpretation only. Non-acute findings felt to be unrelated to the clinical presentation may not be discussed in this report. The study will be interpreted and a final report will be generated by the local Radiologist the following shift. To reach the hospital radiology department call [phone]. If a discrepancy is found between the preliminary and final interpretations of this study, please notify us via our Client Portal at [email or web address].You can also fax this report with a description of the discrepancy, or include the final report, to our daytime fax number [phone].If faxing, please indicate the severity of discrepancy using one of the following categories: [ ] 1 - Agree/Informational [ ] 2 - Unlikely to Affect Management [ ] 3 - Possible Eventual Change of Management [ ] 4 - Probable Immediate Change of Management For all other patient related information, please fax us at [phone]. [id number] Code Status & VTE Plan Code Status Full code VTE Prophylaxis Plan VTE Prophylaxis will be ordered: Yes PG Care Time/CCT Total # of Minutes Spent Total Time Spent with Patient: Total time spent is greater than 50% in coordination of care (as documented) at patient's floor/unit and/or counseling patient: Coding Level of Care Code 06938 Initial Inpt Care Lvl 3 Diagnoses Atrial fibrillation with rapid ventricular response I48.91 Neutropenia D70.9 Neutropenia type: unspecified Thrombocytopenia D69.6 Elevated liver enzymes R74.8 CAD in tribe artery I25.10 Depression with anxiety F41.8 Hyperlipidemia E78.5 Hypothyroidism E03.9 Hypertension I10 Left bundle branch block I44.7 INEZ (obstructive sleep apnea) G47.33 (1) Neutropenia Neutropenia type: unspecified Qualified Code(s): D70.9 - Neutropenia, unspecified
[2020-03-22] MEDS ORDERED: ACETAMINOPHEN 325 MG TAB PO PRN (05:26)
[2020-03-22] MEDS ORDERED: PANTOprazole 40 MG TAB PO STA (05:26)
[2020-03-22] MEDS: LEVOTHYROXINE SODIUM 25 MCG TABLET PO SCH (05:58)
[2020-03-22] MEDS: NSS + 20MEQ KCL 20 MEQ/1,000 ML BAG IV SCH ×2 (05:58→16:48)
--- NOTE | 2020-03-22 07:08 | CT Scan Report ---
CT chest wo con CLINICAL HISTORY: abnl findings on abd CT PULMONARY NODULES COMPARISON STUDY: Abdominal CT scan dated 03/19/2020 CT DOSE: 390.39 mGy.cm TECHNIQUE: CT of the thorax was performed from the thoracic inlet to the lung bases. Images are revi ewed in the axial, sagittal, and coronal planes. IV contrast was not administered for this examinatio n. A dose lowering technique was utilized adhering to the principles of ALARA. FINDINGS: Thyroid: Imaged portions of the thyroid gland are normal in appearance. Thoracic aorta: The thoracic aorta is normal in course and caliber, noting standard 3 vessel arch erika ligia. Heart: The heart is normal in size and configuration, without pericardial effusion. Lungs and pleural spaces: There are no significant pleural effusions. There is dependent atelectasis. There are innumerable tiny bilateral pulmonary nodules with a slight lower lung zone predominance. M any appear cystic/cavitary. There is a wide differential for this finding including both infectious a nd neoplastic processes. Clinical and short-term follow-up is recommended. Mediastinum: Mediastinal lymph nodes are the upper limits of normal in size. Perla: There is no evidence of pathologic hilar adenopathy given the limitations of a noncontrast stud y Axilla: There is no evidence of pathologic axillary lymphadenopathy Upper abdomen: There is a 1 cm hypodense nodule within the right hepatic lobe, unchanged from the pr ior study Skeletal structures: There are no lytic or blastic osseous lesions. IMPRESSION: 1. Innumerable bilateral pulmonary nodules measuring up to approximate 5 mm in diameter. Many of thes e are cystic/cavitary. There is a wide differential for this finding including both infectious and ne oplastic processes. Clinical and short-term imaging follow-up is recommended. ACT 112: Negative or not required by law. Electronically signed by: Nathan Thacker M.D. 03/22/2020 7:06 AM
[2020-03-22] MEDS: PANTOprazole 40 MG TAB PO SCH (07:44)
--- NOTE | 2020-03-22 07:51 | XRay Report ---
XR chest 1V portable CLINICAL HISTORY: weakness COMPARISON STUDY: November 15, 2015 FINDINGS: The cardiac and mediastinal contours are normal. There is no evidence of focal pulmonary co nsolidation. There is no evidence of failure. No pleural effusions are visualized.[There is minor bas ilar atelectatic change. IMPRESSION: Minor basilar atelectasis. ACT 112: Negative or not required by law. Electronically signed by: Nathan Thacker M.D. 03/22/2020 7:49 AM
[2020-03-22] MEDS: APIXABAN 2.5 MG TAB PO SCH ×2 (12:55→20:55)
[2020-03-22] MEDS: DOXYCYCLINE HYCLATE 100 MG in DEXTROSE 5% 100 ML IV SCH (12:55)
[2020-03-22] MEDS: METOPROLOL SUCC 25MG EXT REL TAB PO SCH (12:55)
--- NOTE | 2020-03-22 14:19 | Electrocardiogram Report ---
Test Reason : Blood Pressure : / mmHG Vent. Rate : 069 BPM Atrial Rate : 069 BPM P-R Int : 200 ms QRS Dur : 162 ms QT Int : 436 ms P-R-T Axes : 051 -44 105 degrees QTc Int : 467 ms Normal sinus rhythm Left axis deviation Left bundle branch block Abnormal ECG When compared with ECG of 15-NOV-2015 12:44, No significant change was found Confirmed by Marck Salas ([id number]) on 03/22/2020 2:19:16 PM Referred By: REFERRED SELF Confirmed By:Marck Salas
--- NOTE | 2020-03-22 14:19 | Electrocardiogram Report ---
Test Reason : Blood Pressure : / mmHG Vent. Rate : 127 BPM Atrial Rate : 061 BPM P-R Int : 000 ms QRS Dur : 156 ms QT Int : 386 ms P-R-T Axes : 000 -40 129 degrees QTc Int : 560 ms Poor data quality, interpretation may be adversely affected Atrial fibrillation with rapid ventricular response Left axis deviation Left bundle branch block Abnormal ECG When compared with ECG of 15-NOV-2015 12:44, Atrial fibrillation has replaced Sinus rhythm Vent. rate has increased BY 73 BPM Confirmed by Marck Salas ([id number]) on 03/22/2020 2:18:59 PM Referred By: REFERRED SELF Confirmed By:Marck Salas
--- NOTE | 2020-03-22 14:44 | Family Medicine Progress Note ---
Date of Service March 22, 2020 Assessment & Plan (1) Atrial fibrillation with rapid ventricular response: New onset atrial fibrillation with RVR/CAD/hypertension/LBBB: - Admitted to telemetry for cardiac monitoring, serial EKGs. Troponins have continued to be negative. EKGs without acute changes. No events on telemetry since return to NSR following Diltiazem IV push. - Potassium optimized both orally and IV. - Responded in the ED to diltiazem 15 mg IV, and then diltiazem drip at 5 mg/hr. - Stopped early this morning, started metoprolol 25mg daily. Continue to monitor for tachycardia and palpitations. - Start Eliquis 5mg PO BID. Neutropenia, Thrombocytopenia, Elevated LFTs: - Increase AST and ALT compared to 2 days ago. - Differentials include anaplasmosis, babesiosis, viral syndrome, COVID 19 testing pending. - Patient is exposed to ticks where she lives, but is unaware of any direct tick bite. - We will check testing for anaplasmosis/babesiosis with antibodies and peripheral smear, Ehrlichiosis and Lyme disease. - Empiric treatment with doxycycline 100mg PO BID. - COVID-19 testing was ordered on 03/19/2020, and is still pending at this time. No known contact with PUIs. - Currently neutropenic precautions. CAD in [place] artery: - Continue metoprolol 25mg daily. - Continue aspirin 81 mg daily. Depression with anxiety: - Continue sertraline 50 mg every evening. Hyperlipidemia: - Continue atorvastatin 20 mg at bedtime. Hypothyroidism: - Continue levothyroxine sodium 25 mcg every morning. Hypertension: - medications Left bundle branch block: - History of, noted. INEZ (obstructive sleep apnea): - CPAP qHS. Hypothyroidism: - Continue home levothyroxine. Code Status: FULL CODE FEN/GI: Heart Healthy DVT ppx: on Eliquis Dispo: Telemetry (2) Elevated liver enzymes: (3) Hypokalemia: (4) Thrombocytopenia: (5) Neutropenia: (6) CAD in [place] artery: (7) Depression with anxiety: (8) GERD (gastroesophageal reflux disease): (9) INEZ (obstructive sleep apnea): (10) Left bundle branch block: (11) Hypothyroidism: (12) Hypertension: (13) Hyperlipidemia: Admission and Anticipated Discharge Date Admission Date: March 22, 2020 Supervising Physician Co-Signing Physician Notes I personally examined the patient and verified all armstrong points of history and exam, discussed case, and agree with decision making with Dr Acharya. heart pounding feels better, never had SOB outside of that. fevers up to about 101 at home, GI sx better but is constipated. myalgias better overall. no new cough but does have a longstanding occassional dry cough. vitals noted nad heent nc at mmm breathing unlabored no accessory muscles good effort skin no rashes no pallor or icterus. myalgias/leukopenia/thrombocytopenia/transaminitis -most likely all tie together, and fit the most with a tick borne illness. peripheral smear negative, although false negatives can certainly be high -- given such an endemic area for now empiric treatment with doxy for anaplasmosis -- follow closely, if doesn't improve consider re-smear and/or change treatment to that for babesiosis. SARS-CoV2 likely to be negative, but labnormalities do fit with COVID pattern, although little else with her situation seems to fit with covid new onset afib/RVR -now NSR again. apparently baseline luis so will follow closely with low dose metoprolol for rate control - may not be able to tolerate. anticoagulation started by R1, after discussions with pt she definitely wants to continue at this time. d/w cardiology and she will be following up with them for further monitoring, med management, and discussions abnormal chest CT -?uncertain significance, will need to investigate further - but other than apparently long standing fairly minor dry cough has no real respiratory symptoms otherwise as above Subjective Patient without acute events overnight. No palpitations, chest pain, shortness of breath, dizziness, headaches, sensation of syncope. Feeling well this morning. Review of Systems Constitutional: no fever, no chills and no malaise Respiratory: no cough and no dyspnea Cardiovascular: no chest pain, no palpitations and no edema Gastrointestinal: no abdominal pain, no constipation and no diarrhea/loose stools Genitourinary: no dysuria and no hematuria Physical Exam Constitutional: WD/WN, vitals as above Respiratory: normal respiratory effort, lungs clear to auscultation Cardiovascular: RRR, no murmur, no edema Gastrointestinal (Abdomen): normal bowel sounds, soft, nontender, no hepatosplenomegaly Skin: no rashes, warm and dry Psychiatric: A+Ox3, euthymic affect Results & Data ([facility]) Vital Signs (Past 12 Hours) Vital Signs Temp Pulse Pulse Resp BP BP Pulse Ox 03/22/20 11:25 37.0 C 64 18 155/76 H 97 03/22/20 07:24 53 L 03/22/20 05:54 66 18 98/76 L 03/22/20 05:00 66 18 156/85 H 95 03/22/20 03:18 65 17 139/76 95 Resident Activity Tracking Resident Involvement: Resident Care Provided Care Provided: Adult Hospital Medicine (1) Neutropenia Neutropenia type: unspecified Qualified Code(s): D70.9 - Neutropenia, unspecified
--- NOTE | 2020-03-22 18:34 | Billing Data ---
Date of Service March 22, 2020 Coding Level of Care Code 03204 Subseq Hosp Care Lvl 3
[2020-03-22] MEDS ORDERED: SERTRALINE HCL 50 MG TABLET PO SCH (21:00)
[2020-03-22] MEDS ORDERED: POLYETHYLENE (MIRALAX) 17 GM PACK PO PRN (21:33)
[2020-03-23] MEDS: DOXYCYCLINE HYCLATE 100 MG in DEXTROSE 5% 100 ML IV SCH (01:13)
[2020-03-23] MEDS: LEVOTHYROXINE SODIUM 25 MCG TABLET PO SCH (06:26)
[2020-03-23 07:18] LABS: Hemoglobin 12.2 g/dL (12.0-16.0); Mean Corpuscular Hemoglobin 31.1 pg (25-34); Mean Corpuscular Volume 94.4 fL (80-100); RDW Coefficient of Variation 14.4 % (11.5-14.5); RDW Standard Deviation 49.5 fL (36.4-46.3); Red Blood Count 3.92 M/uL (4.2-5.4); White Blood Count 4.82 K/uL (4.8-10.8)
[2020-03-23 07:21] LABS: Mean Platelet Volume 11.9 fL (7.4-10.4); Platelet Count 80 K/uL (130-400)
[2020-03-23 07:57] LABS: Albumin Level 3.3 gm/dl (3.4-5.0); BUN Creatinine Ratio 17.5 (10-20); Calcium 8.8 mg/dl (8.5-10.1); Creatinine Clr Calc Pharmacy 76.9 ml/min; Est GFR (African American) 92.8; Potassium 3.8 mmol/L (3.5-5.1)
[2020-03-23 07:59] LABS: ALC (manual) 1.97 K/uL (1.2-3.4); ANC (manual) 2.39 K/uL (1.4-6.5); Albumin Globulin Ratio 0.9 (0.9-2); Bilirubin,Total 0.3 mg/dl (0.2-1); Eosinophils # (manual) 0.04 K/uL (0-0.5); Eosinophils % (manual) 0.9 %; Globulin 3.8 gm/dl (2.5-4.0); Lymphocytes # (manual) 1.34 K/uL (1.2-3.4); Lymphocytes % (manual) 27.8 %; Monocytes # (manual) 0.38 K/uL (0.11-0.59); Monocytes % (manual) 7.8 %; Myelocytes # (manual) 0.04 K/uL (0-0); Myelocytes % (manual) 0.9 %; Neutrophils # (manual) 2.39 K/uL (1.4-6.5); Neutrophils % (manual) 49.6 %; Reactive Lymphocytes # (manual) 0.63 K/uL; Total Protein 7.1 gm/dl (6.4-8.2)
[2020-03-23] MEDS: APIXABAN 2.5 MG TAB PO SCH (08:43)
[2020-03-23] MEDS: PANTOprazole 40 MG TAB PO SCH (08:49)
[2020-03-23] MEDS: METOPROLOL SUCC 25MG EXT REL TAB PO SCH (09:20)
--- NOTE | 2020-03-23 12:16 | Discharge Summary ---
Date of Service March 23, 2020 Admission HPI Per Admitting Provider The patient is a 69-year-old female with a past medical history including CAD, anxiety with depression, GERD, osteopenia, obstructive sleep apnea, left bundle branch block, hypo-thyroidism, hypertension and hyperlipidemia. She initially presented to the emergency department on 03/19/2020 with complaint of nausea and vomiting, and underwent laboratory studies and CT of abdomen pelvis which suggested an enteritis. Patient reports those symptoms have almost completely resolved at this point, she is had no further vomiting, and is having normal intake at this time. In the emergency department tonight, EKG and monitor showed atrial fibrillation with RVR, for which, the patient received kaizen 15 mg IV push, followed by diltiazem infusion at 5 mg/h, with conversion of her heart rate to normal sinus rhythm. Laboratories also revealed new findings from most recent labs 2 days ago, which include: Abnormal AST 186 and ALT 168. ANC has decreased from 1.78-0.59, and platelets have decreased to 89. Potassium is decreased from 3.7-3.3. The patient continues to have significant generalized myalgias and arthralgias. Upon questioning, she does report living in an area where there are significant number of ticks, but denies any overt tick bite that she is aware of. Admission Exam Per Admitting Provider The patient is awake, alert and oriented 3, well developed and well nourished, normocephalic and atraumatic, lying in bed and in no acute distress. HEENT--PERRL, EOMI, mucous membranes and oropharynx normal. Neck--supple. No JVD. No bruits. Thyroid normal, trachea midline, no adenopathy. Heart--normal S1 and S2. No murmurs, rubs or gallops. Lungs--clear bilaterally, no respiratory distress, no accessory muscle use. Abdomen--normal bowel sounds and soft. Nontender. Nondistended. Extremities--no cyanosis or clubbing. No edema. Dermatologic--normal skin turgor, normal color, no abnormal lymph nodes, no rash. Neurologic--cranial nerves II through XII grossly intact. Rheumatologic--normal range of motion. Psychiatric--normal affect. Principal Diagnosis anaplasmosis vs. babesiosis vs. lyme disease vs. COVID 19 Discharge Exam Constitutional WD/WN, vitals as above Respiratory normal respiratory effort, lungs clear to auscultation Cardiovascular RRR, no murmur, no edema Gastrointestinal (Abdomen) normal bowel sounds, soft, nontender, no hepatosplenomegaly Skin no rashes, warm and dry Psychiatric A+Ox3, euthymic affect Discharge Data Allergies Allergy/AdvReac Type Severity Reaction Status Date / Time Sulfa (Sulfonamide Allergy Unknown UNKNOWN Verified 03/21/20 22:58 Antibiotics) citalopram [From Celexa] Allergy Unknown Verified 03/21/20 22:58 albuterol AdvReac Unknown racing Verified 03/21/20 22:58 heart Consultations 03/22/20 00:15 ED Decision to Admit Stat Ordered Studies 03/22/20 00:39 CT chest wo con Urgent Hospital Course (1) Atrial fibrillation with rapid ventricular response: New onset atrial fibrillation with RVR/CAD/hypertension/LBBB: - In ED was in AFib with RVR, HR ~120. - Admitted to telemetry for cardiac monitoring, serial EKGs. Troponins this admission negative. EKGs without acute changes. No events on telemetry since return to NSR following Diltiazem IV push. - Responded in the ED to diltiazem 15 mg IV, and then diltiazem drip at 5 mg/hr. - transitioned to metoprolol 25mg daily for dc home. - Potassium optimized both orally and IV. - Started Eliquis 5mg PO BID, continue on dc home. Neutropenia, Thrombocytopenia, Elevated LFTs: - Increased AST and ALT compared to 2 days ago, improving, AST 109, ALT 139 today. - Differentials include anaplasmosis, babesiosis, viral syndrome, COVID 19 testing pending. - Patient is exposed to ticks where she lives, but is unaware of any direct tick bite. Has had complaints of myalgias. - Peripheral smear without findings suggestive of babesiosis or anaplasmosis. - Empiric treatment with doxycycline 100mg PO BID. Continue for a total of 10 days. - COVID-19 testing was ordered on 03/19/2020, and is still pending at this time. No known contact with PUIs. Pt will practice social distancing until this results. CAD in [place] artery: - Continue metoprolol 25mg daily. - Continue aspirin 81 mg daily. Depression with anxiety: - Continue sertraline 50 mg every evening. Hyperlipidemia: - Continue atorvastatin 20 mg at bedtime. Hypothyroidism: - Continue levothyroxine sodium 25 mcg every morning. Hypertension: - Continue home HCTZ. Left bundle branch block: - History of, noted. INEZ (obstructive sleep apnea): - CPAP qHS. Hypothyroidism: - Continue home levothyroxine. Dispo: home with self care (2) Elevated liver enzymes: (3) Hypokalemia: (4) Thrombocytopenia: (5) Neutropenia: (6) CAD in [place] artery: (7) Depression with anxiety: (8) GERD (gastroesophageal reflux disease): (9) INEZ (obstructive sleep apnea): (10) Left bundle branch block: (11) Hypothyroidism: (12) Hypertension: (13) Hyperlipidemia: Total Time Total Time Spent Total Time Spent (In Minutes): >30 Discharge Plan Discharge Items Patient Disposition: Home - Self-Care Reason For Visit: PALPITATIONS AND RAPID HEART RATE Discharge Diagnosis: Tick-borne illness Condition on Discharge: Good Activity: Per Instructions section Non-emergency contact: Primary Care Provider Call non-emergency contact if: your symptoms worsen and your temperature is above 101 Follow-up/Referrals: Jeanine Reyes CRNP [Primary Care Provider] - Diet: Heart Healthy Addtl Attending Provider Instructions: You were admitted to the hospital for palpitations and found to have an abnormal heart rhythm called Atrial Fibrillation. This is when the top chamber of the heart beats very quickly, which can make you feel palpitations and a sense of pounding heartbeat. We gave you a medication called diltiazem and your heart returned to regular rhythm. We then started you on an oral medication called metoprolol, which she will take every day as directed below. You were also started on a blood thinning medication called Eliquis, which you will take as below to minimize your risk of strokes due to atrial fibrillation. These medications have been sent to [facility] in [place], [place]. While admitted you were also found to have an elevation in your liver function tests, some decreased white blood cells, and some decrease in platelets. This is most consistent with a tick borne infection, that you likely got without noticing you were bitten, which would also explain your muscle aches and pains. We started you on an antibiotic called doxycycline for tick infections, and your white blood cells started to improve to a normal level. Unfortunately, your COVID 19 test is still pending. It is less likely that this is the cause of your infection given no exposures to infected persons, and minimal leaving the house. Because your symptoms continued to improve and your cell counts improved as well, you were determined to be safe for discharge home with monitoring as listed below. 1) you will take metoprolol 25 mg, 1 pill every day. 2) you will take Eliquis 5 mg, 1 pill every 12 hours. 3) you will take doxycycline 100mg, 1 pill every 12 hours for 10 more days. This medication is an antibiotic for your infection. This medication puts you at increased risk for sunburn, so please take care to wear sunscreen if you spend a [place] time outside. 4) you will be contacted with the results of your COVID-19 testing. Until that testing comes back, you should practice good social disctancing as you have been prior to admission. 5) you should have close follow-up with your primary care doctor, within the next week or so. At that visit you should have repeat CBC and CMP labwork to make sure that your cell counts and liver function tests are improving. Pending Studies at Discharge: Yes Studies:: COVID 19 testing Stand-Alone Forms: My [facility], Smoking Cessation Medications and DC Order Prescriptions: New metoprolol succinate 25 mg Tablet Extended Release 24 Hr 25 mg PO QAM Qty: 30 RF: 0 Eliquis 5 mg tablet 5 mg PO BID Qty: 30 RF: 0 doxycycline hyclate 100 mg capsule 100 mg PO BID 10 Days Qty: 20 RF: 0 Continued aspirin 81 mg tablet,delayed release (DR/EC) 81 mg PO PM RF: 0 hydrochlorothiazide 12.5 mg capsule 12.5 mg PO QAM RF: 0 multivitamin tablet 1 tab PO PM RF: 0 nitroglycerin 0.4 mg tablet, sublingual 0.4 mg SL Q5M PRN (Reason: Chest Pain) RF: 0 cholecalciferol (vitamin D3) 1,000 unit capsule 2,000 units PO PM RF: 0 Metamucil 3.4 gram/5.4 gram powder 1 tbs PO DAILY PRN (Reason: Constipation) RF: 0 atorvastatin 20 mg tablet 20 mg PO HS RF: 0 levothyroxine 25 mcg tablet 25 mcg PO QAM RF: 0 diclofenac sodium 75 mg tablet,delayed release (DR/EC) 75 mg PO BID RF: 0 sertraline [Zoloft] 50 mg tablet 50 mg PO PM RF: 0 lorazepam 1 mg Tablet 1 mg PO Q8 PRN (Reason: Anxiety) RF: 0 Discharge Orders: Discharge Order (Routine); Ordered 03/23/20 Ordered By: Heydi Galvez Admission Data Admit Date/Time: 03/22/20 02:19 Attending Provider: Boris Durant Admit Provider: Gwyn Jamil Primary Care Provider: Jeanine Reyes Other Providers: Gwyn Jamil Other Interventions: Discharge Summary Assessment (RN) Last Done: 03/23/20 12:56 DC Date/Time DO NOT enter until pt leaves facility: 03/23/20 14:45 Supervising Physician Co-Signing Physician Notes I personally examined the patient and verified all armstrong points of history and exam, discussed case, and agree with decision making with Dr Acharya. generally feeling better / well enough to go home. extensive discussions about current working dxs, ddxs, plans, and follow through. she expressed good understanding. vitals noted nad heent nc at mmm breathing unlabored no accessory muscles good effort skin no rashes no pallor or icterus. myalgias/leukopenia/thrombocytopenia/transaminitis -most likely all tie together, and fit the most with a tick borne illness. peripheral smear negative, although false negatives can certainly be high -- given such an endemic area for now empiric treatment with doxy for anaplasmosis -- follow closely, if doesn't improve consider re-smear and/or change treatment to that for babesiosis. SARS-CoV2 likely to be negative, but lab abnormalities do fit with COVID pattern, although little else with her situation seems to fit with covid (surprisingly swab from 03/19 still pending) -stable for home since she is feeling better and labs are improving --> doxy empirically for anaplasmosis, ongoing outpt f/u and f/u CBC, CMP. if she's not getting better / if labs fail to improve / if she shows improvement then worsening --> would revisit babesiosis vs other new onset afib/RVR -now NSR again. apparently baseline luis so will follow closely with low dose metoprolol for rate control - may not be able to tolerate but after discussion for now she'll try (she discusses able to hold if HR <60), and does want anticoa gulation at this time --> discussed risks/benefits again. for f/u cardiology and ongoing discussions/monitoring etc. abnormal chest CT -?uncertain significance, will need to investigate further - nonspecific infectious vs inflammatory -- ?related to above. cristela, f/u. f/u CT chest ~6wks then if still present and nonspecific pulmonary eval AM cough -?GERD related since it seems so positional - failed acid suppression but d/w her that this would only de-acidify GERD not actually stop it. trial elevation head of bed for ~3-4 wks and then if doesn't improve consider PFTs re ?chronic bronchitis otherwise as above Resident Activity Tracking Resident Involvement: Resident Care Provided Care Provided: Adult Hospital Medicine
--- NOTE | 2020-03-23 19:00 | Billing Data ---
Date of Service March 23, 2020 Coding Level of Care Code D/C Day Management >30 mins
--- NOTE | 2020-03-25 17:45 | Communication Note ---
Date of Service: March 25, 2020 called pt - feeling better, fever gone, aches gone ("i didn't realize how bad the aches were until they went away) taking meds, doing better - just VERY fa tigued. updated that SARS-CoV2 finally came back - negative as expected. 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 to have labs (CMP, CBC) this coming week as outpt - she notes she'll call friday to get set up. if somehow labs / picture fail to continue to show improvement then would have to revisit babseiosis or other similar ddx's, but sounds to be improving as expected. unfortunately call was lost before being able to "formally say goodbye" but all essential information was able to be relayed.
== END 2020-03-23 14:45 | disposition home or self-care (01) | DRG 309 ==
LOC: ED 22:33 → 2S 03-22 02:19 → SUATTDRO 03-22 02:19 → 2S 03-22 05:54

== ENCOUNTER 2021-02-21 18:09 | Inpatient (IN) ==
[2021-02-21] MEDS ORDERED: PANTOPRAZOLE BOLUS/DRIP 1 EA IV STA (18:36)
[2021-02-21] MEDS ORDERED: PANTOprazole 80 MG in DEXTROSE 5% 100 ML IV ONE (18:36)
[2021-02-21] MEDS: SODIUM CHLORIDE 0.9% 1000ML 1,000 ML IV SCH (18:50)
[2021-02-21 19:04] LABS: Prothrombin Time 10.3 Seconds (9.0-12.0)
[2021-02-21 19:14] LABS: BUN Creatinine Ratio 22.1 (10-20); Blood Urea Nitrogen 17 mg/dl (7-18); Calcium 9.3 mg/dl (8.5-10.1); Carbon Dioxide 27 mmol/L (21-32); Chloride 108 mmol/L (98-107); Creatinine Clr Calc Pharmacy 70.9 ml/min; Est GFR (African American) 89.3; Glucose 126 mg/dl (70-99); Hematocrit (blood only) 26.4 % (37-47); Hemoglobin 7.5 g/dL (12.0-16.0); Lipase 140 U/L (73-393); Mean Corpuscular Hemoglobin 18.8 pg (25-34); Mean Corpuscular Hgb Conc 28.4 g/dL (32-36); Platelet Count 250 K/uL (130-400); Potassium 3.4 mmol/L (3.5-5.1); RDW Coefficient of Variation 19.8 % (11.5-14.5); RDW Standard Deviation 47.1 fL (36.4-46.3); Sodium 140 mmol/L (136-145)
[2021-02-21 19:18] LABS: Troponin I < 0.015 ng/ml (0-0.045)
--- NOTE | 2021-02-21 19:23 | XRay Report ---
XR chest 1V portable CLINICAL HISTORY: Chest Pain COMPARISON STUDY: Chest CT December 27, 2020. FINDINGS: Lung volumes are normal. There is no pneumothorax or pleural effusion. There is no consolid ation or evidence for pulmonary edema. The tiny pulmonary nodules on CT of December 27, 2020 are not evid ent on exam, likely due to technique. Minimal left basilar opacity favors atelectasis. IMPRESSION: 1. No acute cardiopulmonary findings. 2. Mild cardiomegaly. 3. Numerous small pulmonary nodules on CT of December 27, 2020 not well visualized on this exam, likely d ue to technique. ACT 112: Negative or not required by law. Electronically signed by: Jimmy Hanna M.D. 02/21/2021 7:22 PM
[2021-02-21 19:27] LABS: Basophils # (auto) 0.03 K/uL (0-0.2); Basophils % (auto) 0.5 %; Eosinophils % (auto) 1.6 %; Hypochromasia Present; Immature Granulocytes # (auto) 0.01 K/uL (0.00-0.02); Immature Granulocytes % (auto) 0.2 %; Lymphocytes # (auto) 1.96 K/uL (1.2-3.4); Lymphocytes % (auto) 31.6 %; Microcytosis Present; Monocytes # (auto) 0.53 K/uL (0.11-0.59); Monocytes % (auto) 8.5 %; Neutrophils # (auto) 3.57 K/uL (1.4-6.5); Neutrophils % (auto) 57.6 %; Polychromasia 1+
[2021-02-21] MEDS ORDERED: SODIUM CHLORIDE 0.9% 250 ML IV PRN (19:34)
[2021-02-21] MEDS: PANTOprazole 40 MG in DEXTROSE 5% 100 ML IV SCH (19:42)
[2021-02-21] MEDS ORDERED: ONDANSETRON INJ 2 MG/ML 2 ML VIAL IV STA (20:02)
[2021-02-21] MEDS ORDERED: ONDANSETRON INJ 2 MG/ML 2 ML VIAL ONE (20:02)
--- NOTE | 2021-02-21 21:15 | History & Physical Report ---
Date of Service February 21, 2021 Assessment & Plan (1) Anemia: Admission and Anticipated Discharge Date Admission Date: 70 yo F w/ pMHx. of DM, lumbar radicular pain, anxiety, insomnia, Anaplasmosis, CAD with nulato vessels, GERD, INEZ, LBBB, hypothyroid, HTN, HLD presents with anemia and fatigue found to be FOB+. Microcytic anemia, unclear etiology hgb 7.5 concern for upper GIB vs. iron deficiency or mixed picture CT A/P STATRAD read without bleed BP 143/57, HR 51, last dose of Eliquis 02/21 AM - consulted GI for concern of upper GIB - PPI drip - NPO after midnight - type, screen, transfused 1U - continue to follow H&H - ordered iron studies and peripheral smear with AM labs DM, not currently on medication at home - continue to monitor at this time Anxiety - continue sertraline and Lorazepam PRN Insomnia - continue Trazodone INEZ - CPAP overnight HTN - continue HCTZ HLD - continue statin Hypothyroidism - continue levothyroxine Code: conditional Diet: CC II DVT: held chemical prophylaxis given concern for GIB History of Present Illness Chief Complaint: fatigue, abnormal labs Primary Care Provider: MYRIAM Casillas Ángel Kim is here for low hemoglobin and fatigue. Her symptoms started on Friday (02/16) with fatigue and shortness of breath. She denies any black, bloody or tarry stool. She saw her alpine guide Dr. Barajas for pulmonary nodules and based on her symptoms he ordered blood tests including a CBC. She was found to have microcytic anemia (hgb 7.3) at this time. She was referred to hematology and has an appointment with Dr. Kiran scheduled for next week. She saw her PCP and was started on iron tabs, and continued on Eliquis and directed to talk with her Line Tester Dr. Webster. She was instructed by Cardiology to stop her Eliquis if she had GI bleeding. She was told by her primary doctor that if she felt worse to go to the ER. Today she was feeling lightheaded, dizzy and fatigued. Her shortness of breath had progressed to at rest rather than with exertion. GI appointment March 22 for screening colonoscopy with Dr. Young. She has had colonoscopy when she was 50 and again at age 60 with no polyps or abnormalities found. ED course: K centra not given since her hemoglobin along with her vital signs IVF at 125/h PPI drip Zofran for nausea Allergies Allergy/AdvReac Type Severity Reaction Status Date / Time Sulfa (Sulfonamide Allergy Unknown UNKNOWN Verified 02/21/21 19:11 Antibiotics) citalopram [From Celexa] Allergy Unknown Verified 02/21/21 19:11 metformin AdvReac Mild Dizziness Verified 02/21/21 19:11 albuterol AdvReac Unknown racing Verified 02/21/21 19:11 heart Home Medications Medication Instructions Recorded Confirmed Type aspirin 81 mg tablet,delayed 81 mg PO PM 07/24/19 02/21/21 History release nitroglycerin 0.4 mg sublingual 0.4 mg SL Q5M PRN 07/26/19 02/21/21 History tablet psyllium husk 3.4 gram/5.4 gram 1 tbs PO DAILY PRN 03/10/20 02/21/21 History oral powder atorvastatin 20 mg PO HS 03/19/20 02/21/21 History lorazepam 1 mg PO Q8 PRN 03/21/20 02/21/21 History apixaban [Eliquis] 5 mg PO BID #30 tab 03/23/20 02/21/21 Rx hydrocortisone 2.5 % topical cream 1 appln [place] DIRECTED PRN #30 gm 03/30/20 02/21/21 Rx with perineal applicator hydrochlorothiazide 25 mg tablet 25 mg PO DAILY 06/01/20 02/21/21 History levothyroxine 25 mcg tablet 25 mcg PO QAM #30 tab 10/26/20 02/21/21 Rx cholecalciferol (vitamin D3) 25 2,000 unit PO QAM cap 01/04/21 02/21/21 History mcg (1,000 unit) capsule famotidine 20 mg tablet 20 mg PO DAILY #30 tab 01/04/21 02/21/21 Rx metoprolol succinate 25 mg 25 mg PO QPM tab 01/04/21 02/21/21 History tablet,extended release 24 hr multivitamin 1 tab PO QAM tab 01/04/21 02/21/21 History pantoprazole 40 mg tablet,delayed 40 mg PO DAILY #30 tab 01/04/21 02/21/21 Rx release sertraline 100 mg tablet 100 mg PO QAM tab 01/04/21 02/21/21 History blood sugar diagnostic #100 ea 01/08/21 02/21/21 Rx trazodone 50 mg tablet 50 mg PO QPM #30 tab 01/29/21 02/21/21 Rx ferrous sulfate 325 mg (65 mg 325 mg PO BID #60 tab 02/19/21 02/21/21 Rx iron) tablet Past Med/Surg History Medical History Anemia Concussion Cough with sputum GERD (gastroesophageal reflux disease) Hemorrhoids History of coronary artery disease Hyperlipidemia Hypertension Hypothyroidism Infected lesion in nose Iron deficiency anemia Left bundle branch block Nasal congestion INEZ (obstructive sleep apnea) Surgical History H/O cardiac catheterization History of back surgery History of bilateral oophorectomy History of hernia surgery Hx of hysterectomy Family History Father Hypertension Heart disease Mother Stroke Other Breast cancer Myocardial infarction No family history of adverse response to anesthesia No family history of bleeding disorder Denies family history of Ovarian cancer Prostate cancer Colorectal cancer Social History Smoking Status: Never smoker Do You Dip or Chew Tobacco: No; Hx Alcohol Use: Yes Alcohol type: wine Hx Substance Use: No Preferred Language: Yakut Communication Ability: Effective 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: No Beliefs That Will Affect Care: None marital status: Current Living Situation: Spouse current occupational status: retired How many Children do You have: 3 Other Information That Helps Us Care for You: No Feels Safe at Home: Yes Safety Concerns: Feels Safe At This Time caffeine: Yes Dental Care, Regularly: Yes Physical Activity Frequency: 1-2 Times per Week Seatbelt Use: always Sunscreen Use: Yes Assistive Devices: CPAP Review of Systems Review of Systems: Constitutional: denies fevers, chills, diaphoresis, weight changes admits nausea w/o vomiting, fatigue, general weakness, nigh sweats over the last month she relates to a warm house neurologic: denies syncope, slurring of speech, focal weakness admits pins and needles sensation of the hands bilaterally Cardiac: denies chest pain, leg edema admits palpitations and PND Pulm: denies cough, pain on inspiration, hemoptysis admits shortness of breath and sputum production (that has improved lately) GI: denies constipation, diarrhea, blood in stool or changes in bowel habits : denies dysuria Physical Exam Constitutional: WD/WN, vitals as above Eyes: PERRL, conjunctivae normal, anicteric sclerae ENMT: external ear and nose normal, oropharynx normal Neck: normal visual inspection Respiratory: normal respiratory effort, lungs clear to auscultation Cardiovascular: Rate/Rhythm: regular rhythm and + bradycardic Gastrointestinal (Abdomen): normal bowel sounds, soft, nontender, no hepatosplenomegaly Inspection/Auscultation: Hood-Liao sign absent Skin: no rashes, warm and dry Neurologic: PERRL, EOMI, accommodation nl, no face palsy, no dysarthria Psychiatric: Orientation: alert and oriented x 3 Eye Contact: good eye contact Speech: normal rate/rhythm/volume of speech Affect: euthymic affect Results & Data Results & Data ([facility]) Vital Signs (Past 12 Hours) Vital Signs Temp Pulse Resp BP Pulse Ox 02/21/21 21:00 51 L 21 143/57 H 97 02/21/21 20:30 52 L 19 139/77 98 02/21/21 20:01 48 L 15 127/51 L 98 02/21/21 19:30 49 L 15 138/58 L 96 02/21/21 19:00 51 L 18 121/74 98 02/21/21 18:56 100 02/21/21 18:49 49 L 10 L 141/64 H 98 02/21/21 18:14 36.4 C L 59 L 18 154/73 H 99 CBC Results Results Complete Blood Count Results: RBC 3.77 M/uL (4.2-5.4) L 02/23/21 WBC 4.26 K/uL (4.8-10.8) L 02/23/21 Hgb 7.5 g/dL (12.0-16.0) L 02/23/21 Hct 25.9 % (37-47) L 02/23/21 Plt Count 217 K/uL (130-400) 02/23/21 Chemistry (BMP) Results BMP Results: Sodium 142 mmol/L (136-145) 02/22/21 Potassium 3.5 mmol/L (3.5-5.1) 02/22/21 Chloride 112 mmol/L (98-107) H 02/22/21 BUN 13 mg/dl (7-18) 02/22/21 Creatinine 0.75 mg/dl (0.6-1.2) 02/22/21 Glucose 101 mg/dl (70-99) H 02/22/21 Supervising Physician Co-Signing Physician Notes Attending addendum: I have physically seen this patient, have supervised the medical residents activities, and agree with the H&P unless as otherwise noted. Assessment and Plan: GI bleed- NPO Continue Protonix drip begun in the ED H&H every 6 hours Typed and crossed for 1 unit PRBCs by the ED Check iron studies and peripheral smear Hold Eliquis and aspirin Ceftriaxone 1 g IV daily Zofran 4 mg IV every 6 hours as needed Consult gastroenterology Diabetes mellitus- Patient Accu-Cheks before meals and at bedtime with NovoLog coverage per scale Obstructive sleep apnea- CPAP at at bedtime Hypertension- Hold HCTZ Remaining orders and notations as noted Resident Activity Tracking Resident Involvement: Resident Care Provided Care Provided: Adult Hospital Medicine (1) Anemia Anemia type: unspecified type Qualified Code(s): D64.9 - Anemia, unspecified
[2021-02-21 21:25] LABS: Influenza A virus by PCR Negative (Neg); Influenza B virus by PCR Negative (Neg); RSV by PCR Negative (Neg); SARS CoV2 RNA(COVID-19) InHosp NEGATIVE (Negative)
--- NOTE | 2021-02-21 22:51 | Emergency Department Note ---
History of Present Illness General Chief Complaint: Abnormal Labs/Diagnostic Testing Stated Complaint: LOW BLOOD, IRON Time Seen by Provider: 02/21/21 18:20 History of Present Illness Provider Complaint: + abnormal lab (Low hemoglobin) Initial visit (ago): day(s) (5 at PCP office) Associated symptoms: + shortness of breath HPI narrative: 70-year-old female presents emergency department for low hemoglobin. Patient states that she received a call from her PCPs office saying that she had blood work done in February 16, 2021 and showed a low hemoglobin. Patient is reporting increasing shortness of breath palpitations and headache. She denies any chest pain. She denies any falls. Patient is on Eliquis . Patient denies any loss of taste or smell. Patient denies any fevers. Home Medications Medication Instructions Recorded Confirmed Type aspirin 81 mg tablet,delayed 81 mg PO PM 07/24/19 02/21/21 History release nitroglycerin 0.4 mg sublingual 0.4 mg SL Q5M PRN 07/26/19 02/21/21 History tablet psyllium husk 3.4 gram/5.4 gram 1 tbs PO DAILY PRN 03/10/20 02/21/21 History oral powder atorvastatin 20 mg PO HS 03/19/20 02/21/21 History lorazepam 1 mg PO Q8 PRN 03/21/20 02/21/21 History apixaban [Eliquis] 5 mg PO BID #30 tab 03/23/20 02/21/21 Rx hydrocortisone 2.5 % topical cream 1 appln MD DIRECTED PRN #30 gm 03/30/20 02/21/21 Rx with perineal applicator hydrochlorothiazide 25 mg tablet 25 mg PO DAILY 06/01/20 02/21/21 History levothyroxine 25 mcg tablet 25 mcg PO QAM #30 tab 10/26/20 02/21/21 Rx cholecalciferol (vitamin D3) 25 2,000 unit PO QAM cap 01/04/21 02/21/21 History mcg (1,000 unit) capsule famotidine 20 mg tablet 20 mg PO DAILY #30 tab 01/04/21 02/21/21 Rx metoprolol succinate 25 mg 25 mg PO QPM tab 01/04/21 02/21/21 History tablet,extended release 24 hr multivitamin 1 tab PO QAM tab 01/04/21 02/21/21 History pantoprazole 40 mg tablet,delayed 40 mg PO DAILY #30 tab 01/04/21 02/21/21 Rx release sertraline 100 mg tablet 100 mg PO QAM tab 01/04/21 02/21/21 History blood sugar diagnostic #100 ea 01/08/21 02/21/21 Rx trazodone 50 mg tablet 50 mg PO QPM #30 tab 01/29/21 02/21/21 Rx ferrous sulfate 325 mg (65 mg 325 mg PO BID #60 tab 02/19/21 02/21/21 Rx iron) tablet Allergies Allergy/AdvReac Type Severity Reaction Status Date / Time Sulfa (Sulfonamide Allergy Unknown UNKNOWN Verified 02/21/21 19:11 Antibiotics) citalopram [From Celexa] Allergy Unknown Verified 02/21/21 19:11 metformin AdvReac Mild Dizziness Verified 02/21/21 19:11 albuterol AdvReac Unknown racing Verified 02/21/21 19:11 heart Past Med/Surg History Medical History Anemia Concussion Cough with sputum GERD (gastroesophageal reflux disease) Hemorrhoids History of coronary artery disease Hyperlipidemia Hypertension Hypothyroidism Infected lesion in nose Iron deficiency anemia Left bundle branch block Nasal congestion INEZ (obstructive sleep apnea) Surgical History H/O cardiac catheterization History of back surgery History of bilateral oophorectomy History of hernia surgery Hx of hysterectomy Family History Father Hypertension Heart disease Mother Stroke Other Breast cancer Myocardial infarction No family history of adverse response to anesthesia No family history of bleeding disorder Denies family history of Ovarian cancer Prostate cancer Colorectal cancer Social History Smoking Status: Never smoker Hx Alcohol Use: No Hx Substance Use: No Preferred Language: Belarusian Communication Ability: Effective [employer]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 Beliefs That Will Affect Care: None marital status: Current Living Situation: Spouse current occupational status: retired Feels Safe at Home: Yes caffeine: Yes Dental Care, Regularly: Yes Physical Activity Frequency: 1-2 Times per Week Seatbelt Use: always Sunscreen Use: Yes Assistive Devices: None Review of Systems A total of 10 systems reviewed and were otherwise negative Physical Exam Vital Signs: Vital Signs - 24 hr 02/21/21 18:14 02/21/21 18:49 02/21/21 18:56 Temperature 36.4 C L Temperature Source Temporal Artery Sc an Pulse Rate 59 L 49 L Pulse Rate from Sp O2 Sensor 50 L Pulse Rhythm Pulse Strength Respiratory Rate 18 10 L Respiratory Depth Normal Blood Pressure 154/73 H 141/64 H Blood Pressure Lani n 100 89 Blood Pressure Pos ition Sitting Pulse Oximetry 99 98 100 Oxygen Delivery Me thod Room Air Room Air Sepsis Recent Feve r Within 48 Hours No Sepsis New/Unexpla ined Change in Men sheryl Status N/A Sepsis Action Take n by Nursing No Action Required 02/21/21 19:00 02/21/21 19:30 02/21/21 20:01 Temperature Temperature Source Pulse Rate 51 L 49 L 48 L Pulse Rate from Sp O2 Sensor 50 L 50 L 48 L Pulse Rhythm Pulse Strength Respiratory Rate 18 15 15 Respiratory Depth Blood Pressure 121/74 138/58 L 127/51 L Blood Pressure Lani n 89 84 76 Blood Pressure Pos ition Pulse Oximetry 98 96 98 Oxygen Delivery Me thod Sepsis Recent Feve r Within 48 Hours Sepsis New/Unexpla ined Change in Men sheryl Status Sepsis Action Take n by Nursing 02/21/21 20:30 02/21/21 21:00 02/21/21 21:53 Temperature 36.6 C Temperature Source Oral Pulse Rate 52 L 51 L 49 L Pulse Rate from Sp O2 Sensor 51 L 52 L 50 L Pulse Rhythm Regular Pulse Strength Normal Respiratory Rate 19 21 12 Respiratory Depth Blood Pressure 139/77 143/57 H 138/54 L Blood Pressure Lani n 97 85 82 Blood Pressure Pos ition Sitting Pulse Oximetry 98 97 96 Oxygen Delivery Me thod Sepsis Recent Feve r Within 48 Hours Sepsis New/Unexpla ined Change in Men sheryl Status Sepsis Action Take n by Nursing 02/21/21 22:15 02/21/21 22:30 Temperature 37.2 C 36.8 C Temperature Source Oral Oral Pulse Rate 51 L 54 L Pulse Rate from Sp O2 Sensor Pulse Rhythm Regular Regular Pulse Strength Normal Normal Respiratory Rate 20 20 Respiratory Depth Blood Pressure 132/57 L 135/57 L Blood Pressure Lani n 82 83 Blood Pressure Pos ition Sitting Sitting Pulse Oximetry 97 97 Oxygen Delivery Me thod Sepsis Recent Feve r Within 48 Hours Sepsis New/Unexpla ined Change in Men sheryl Status Sepsis Action Take n by Nursing Physical Exam: Physical Exam GENERAL: She is oriented to person, place, and time. She appears well-developed and well-nourished. She does not appear distressed. HENT: Exam performed. -Head: Normocephalic and atraumatic. -Right Ear: External ear normal. No mastoid tenderness. -Left Ear: External ear normal. No mastoid tenderness. -Mouth/Throat: The oropharynx is clear and moist. No trismus in the jaw. No dental abscesses or uvula swelling. No oropharyngeal exudate or tonsillar abscesses. EYES: Conjunctivae and EOM are normal. Pupils are equal, round, and reactive to light. Right eye exhibits no discharge. Left eye exhibits no discharge. No scleral icterus. NECK: Normal range of motion. Neck supple. No JVD present. No spinous process tenderness present. No carotid bruit present. No rigidity. No tracheal deviation and normal range of motion present. No Brudzinski's sign and no Kernig's sign noted. CV: Normal rate, regular rhythm, normal heart sounds and intact distal pulses. There is no peripheral edema. Palpable radial pulses bue. PULM/CHEST: Effort normal and breath sounds normal. No respiratory distress. No stridor. She has no wheezes. She has no rales. -Chest Wall: She exhibits no tenderness. ABD: The abdomen is soft. Bowel sounds are normal. She has no distension. No mass is present. There is no tenderness. There is no rebound, no guarding, no Gaviria's sign and no tenderness at McBurney's point. Rovsig negative Rectal: Performed with female nursing assayer Neveah Arreola at bedside. Hemoccult positive. MUSC/SKEL: Normal range of motion. There is no peripheral edema, tenderness or deformity. LYMPH: No cervical adenopathy. NEURO: She is alert and oriented to person, place, and time. She has normal strength. No cranial nerve deficit or sensory deficit. Coordination and gait normal. GCS eye subscore is 4. GCS verbal subscore is 5. GCS motor subscore is 6. Cerebellar tests wnl. SKIN: Skin is warm and dry. She is not diaphoretic. PSYCH: She has a normal mood and affect. Behavior is normal. Judgment and thought content normal. Course Course 1819: The patient was evaluated in room B11. A complete history and physical exam was performed Cardiac monitoring: An order was placed for continuous cardiac monitoring. The monitor shows a rate of 50 with sinus rhythm EMR reviewed. Patient had blood work done on February 16, 2021 which showed a hemoglobin level of 7.3.Patient's baseline hemoglobin from 2019 appears to be 13. We will recheck the patient's hemoglobin here. Given the patient is on Eliquis also we will start the patient on Protonix. 1929: Patient's hemoglobin is 7.5. Given the patient's GI bleed and is symptomatic we will transfuse patient 1 unit packed red blood cells [facility] team has been notified. 2048: Dr. Taylor asking that a CT of the abdomen without contrast be conducted on the patient. Order placed. Administered Medications Sodium Chloride (Nss 1000ml) 1,000 mls @ 125 mls/hr IV .Q8H XANDER Stop: 03/23/21 18:29 Last Admin: 02/21/21 18:50 Dose: 125 mls/hr Documented by: [id number] Pantoprazole Sodium 40 mg/ (Dextrose) 100 mls @ 20 mls/hr IV Q5H XANDER Stop: 03/23/21 18:50 Last Admin: 02/21/21 19:42 Dose: 8 mg/hr, 20 mls/hr Documented by: [id number] Discontinued Medications Pantoprazole Sodium 80 mg/ (Dextrose) 120 mls @ 400 mls/hr IV NOW ONE Stop: 02/21/21 18:53 Last Admin: 02/21/21 19:21 Dose: 400 mls/hr Documented by: [id number] Ondansetron HCl (Ondansetron Inj 2 Mg/Ml 2 Ml Vial) 4 mg IV NOW STA Stop: 02/21/21 20:03 Last Admin: 02/21/21 20:06 Dose: 4 mg Documented by: [id number] Ondansetron HCl (Ondansetron Inj 2 Mg/Ml 2 Ml Vial) Confirm Administered Dose 4 mg .ROUTE .STK-MED ONE Stop: 02/21/21 20:03 Last Admin: 02/21/21 20:06 Dose: Not Given Documented by: [id number] Medical Decision Making Laboratory Data Result diagrams: 02/21/21 18:42 02/21/21 18:42 Lab Results 02/21/21 02/21/21 02/21/21 Range/Units 18:42 18:42 18:42 WBC 6.20 (4.8-10.8) K/uL RBC 4.00 L (4.2-5.4) M/uL Hgb 7.5 L (12.0-16.0) g/dL Hct 26.4 L (37-47) % MCV 66.0 L (80-100) fL MCH 18.8 L (25-34) pg MCHC 28.4 L (32-36) g/dL RDW Std Deviation 47.1 H (36.4-46.3) fL RDW Coeff of Vito 19.8 H (11.5-14.5) % Plt Count 250 (130-400) K/uL Immature Gran % (Auto) 0.2 % Neut % (Auto) 57.6 % Lymph % (Auto) 31.6 % [facility] % (Auto) 8.5 % Eos % (Auto) 1.6 % Baso % (Auto) 0.5 % Neut # (Auto) 3.57 (1.4-6.5) K/uL Lymph # (Auto) 1.96 (1.2-3.4) K/uL [facility] # (Auto) 0.53 (0.11-0.59) K/uL Eos # (Auto) 0.10 (0-0.5) K/uL Baso # (Auto) 0.03 (0-0.2) K/uL Immature Gran # (Auto) 0.01 (0.00-0.02) K/uL Polychromasia 1+ Hypochromasia Present Microcytosis Present PT 10.3 (9.0-12.0) Seconds INR 1.0 (0.9-1.1) Sodium (136-145) mmol/L Potassium (3.5-5.1) mmol/L Chloride (98-107) mmol/L Carbon Dioxide (21-32) mmol/L Anion Gap (3-11) BUN (7-18) mg/dl Creatinine (0.6-1.2) mg/dl Est Cr Clr Drug Dosing ml/min Est GFR ( Amer) Est GFR (Non-Af Amer) BUN/Creatinine Ratio (10-20) Glucose (70-99) mg/dl Calcium (8.5-10.1) mg/dl Troponin I (0-0.045) ng/ml Lipase (73-393) U/L COVID-19 Eval Order SARS-CoV-2 (PCR) (Negative) Influenza Type A (PCR) (Neg) Influenza Type B (PCR) (Neg) RSV (RT-PCR) (Neg) Blood Type A Positive Antibody Screen NEGATIVE Crossmatch See Detail 02/21/21 02/21/21 02/21/21 Range/Units 18:42 20:04 20:04 WBC (4.8-10.8) K/uL RBC (4.2-5.4) M/uL Hgb (12.0-16.0) g/dL Hct (37-47) % MCV (80-100) fL MCH (25-34) pg MCHC (32-36) g/dL RDW Std Deviation (36.4-46.3) fL RDW Coeff of Vito (11.5-14.5) % Plt Count (130-400) K/uL Immature Gran % (Auto) % Neut % (Auto) % Lymph % (Auto) % [facility] % (Auto) % Eos % (Auto) % Baso % (Auto) % Neut # (Auto) (1.4-6.5) K/uL Lymph # (Auto) (1.2-3.4) K/uL [facility] # (Auto) (0.11-0.59) K/uL Eos # (Auto) (0-0.5) K/uL Baso # (Auto) (0-0.2) K/uL Immature Gran # (Auto) (0.00-0.02) K/uL Polychromasia Hypochromasia Microcytosis PT (9.0-12.0) Seconds INR (0.9-1.1) Sodium 140 (136-145) mmol/L Potassium 3.4 L (3.5-5.1) mmol/L Chloride 108 H (98-107) mmol/L Carbon Dioxide 27 (21-32) mmol/L Anion Gap 5.0 (3-11) BUN 17 (7-18) mg/dl Creatinine 0.78 (0.6-1.2) mg/dl Est Cr Clr Drug Dosing 70.9 ml/min Est GFR ( Amer) 89.3 Est GFR (Non-Af Amer) 77.0 BUN/Creatinine Ratio 22.1 H (10-20) Glucose 126 H (70-99) mg/dl Calcium 9.3 (8.5-10.1) mg/dl Troponin I < 0.015 (0-0.045) ng/ml Lipase 140 (73-393) U/L COVID-19 Eval Order CovFluRsv at [facility] SARS-CoV-2 (PCR) NEGATIVE (Negative) Influenza Type A (PCR) Negative (Neg) Influenza Type B (PCR) Negative (Neg) RSV (RT-PCR) Negative (Neg) Blood Type Antibody Screen Crossmatch ECG Data Indication: weakness Rate (beats per minute): 52 Rhythm: sinus bradycardia Findings: + LBBB (Established); no RBBB, no ST depression, no ST elevation and no prolonged QT MDM Narrative 1819: The patient was evaluated in room B11. A complete history and physical exam was performed Cardiac monitoring: An order was placed for continuous cardiac monitoring. The monitor shows a rate of 50 with sinus rhythm EMR reviewed. Patient had blood work done on February 16, 2021 which showed a hemoglobin level of 7.3.Patient's baseline hemoglobin from 2019 appears to be 13. We will recheck the patient's hemoglobin here. Given the patient is on Eliquis also we will start the patient on Protonix. 0: Patient's hemoglobin is 7.5. Given the patient's GI bleed and is symptomatic we will transfuse patient 1 unit packed red blood cells [facility] team has been notified. 2048: Dr. Taylor asking that a CT of the abdomen without contrast be conducted on the patient. Order placed. Impression & Plan GIB (gastrointestinal bleeding), Left bundle branch block Critical Care Time Critical Care Time: Yes Total Critical Care Time: 70 I have personally spent greater than 70 minutes of critical care time in the direct management of this patient. This includes bedside care, interpretation of diagnostic studies, and testing, discussion with consultants, patient, and family members, and other required patient management activities. This 70 minutes is in excess of all separately billable procedures. Discharge Plan Visit Data Chief Complaint: Abnormal Labs/Diagnostic Testing Stated Complaint: LOW BLOOD, IRON ED Provider: Chip Bush Discharge Problem: GIB (gastrointestinal bleeding), Left bundle branch block Patient Disposition: Admitted As Inpatient Forms Stand Alone Forms: Amy [facility] Prescriptions Prescriptions: No Action levothyroxine 25 mcg tablet 25 mcg PO QAM Qty: 30 RF: 11 (DME) OneTouch Ultra Blue Test Strip Strip See Rx Instructions .ROUTE .MEDSUPPLY Qty: 100 RF: 5 trazodone 50 mg tablet 50 mg PO QPM Qty: 30 RF: 11 aspirin 81 mg tablet,delayed release (DR/EC) 81 mg PO PM RF: 0 nitroglycerin 0.4 mg tablet, sublingual 0.4 mg SL Q5M PRN (Reason: Chest Pain) RF: 0 Metamucil 3.4 gram/5.4 gram powder 1 tbs PO DAILY PRN (Reason: Constipation) RF: 0 cholecalciferol (vitamin D3) 25 mcg (1,000 unit) capsule 2,000 unit PO QAM RF: 0 multivitamin Tablet 1 tab PO QAM RF: 0 hydrochlorothiazide 25 mg tablet 25 mg PO DAILY RF: 0 ferrous sulfate 325 mg (65 mg iron) tablet 325 mg PO BID Qty: 60 RF: 3 metoprolol succinate 25 mg tablet extended release 24 hr 25 mg PO QPM RF: 0 sertraline 100 mg tablet 100 mg PO QAM RF: 0 pantoprazole 40 mg tablet,delayed release (DR/EC) 40 mg PO DAILY Qty: 30 RF: 5 famotidine 20 mg tablet 20 mg PO DAILY Qty: 30 RF: 5 hydrocortisone [Proctosol HC] 2.5 % cream with perineal applicator 1 appln MD DIRECTED PRN (Reason: Itching) Qty: 30 RF: 4 atorvastatin 20 mg tablet 20 mg PO HS RF: 0 lorazepam 1 mg Tablet 1 mg PO Q8 PRN (Reason: Anxiety) RF: 0 Eliquis 5 mg tablet 5 mg PO BID Qty: 30 RF: 0 Referrals Referrals: Jeanine Reyes CRNP [Primary Care Provider] - Discharge Problem: GIB (gastrointestinal bleeding) Qualifiers: GI bleed type/associated pathology: unspecified gastrointestinal hemorrhage type Qualified Code(s): K92.2 - Gastrointestinal hemorrhage, unspecified
[2021-02-21] MEDS ORDERED: ACETAMINOPHEN 325 MG TAB PO PRN (23:10)
[2021-02-21] MEDS ORDERED: POLYETHYLENE (MIRALAX) 17 GM PACK PO PRN (23:10)
[2021-02-21] MEDS ORDERED: LORazepam 1 MG TAB PO PRN (23:15)
[2021-02-21] MEDS ORDERED: PSYLLIUM 58.6% POWDER PACKET PO PRN (23:16)
[2021-02-22 00:04] LABS: Hematocrit (blood only) 26.9 % (37-47); Hemoglobin 7.9 g/dL (12.0-16.0)
[2021-02-22] MEDS: SODIUM CHLORIDE 0.9% 1000ML 1,000 ML IV SCH ×3 (03:10→20:39)
[2021-02-22] MEDS: PANTOprazole 40 MG in DEXTROSE 5% 100 ML IV SCH ×5 (04:45→23:37)
[2021-02-22 05:15] LABS: Hematocrit (blood only) 26.9 % (37-47); Hemoglobin 7.8 g/dL (12.0-16.0)
[2021-02-22 05:33] LABS: BUN Creatinine Ratio 17.5 (10-20); Calcium 8.6 mg/dl (8.5-10.1); Creatinine Clr Calc Pharmacy 74.7 ml/min; Est GFR (African American) 93.6; Est GFR (Non-African American) 80.8; Potassium 3.5 mmol/L (3.5-5.1)
[2021-02-22 05:38] LABS: Ferritin 5.2 ng/ml (8-388)
[2021-02-22] MEDS: LEVOTHYROXINE SODIUM 25 MCG TABLET PO SCH (06:18)
--- NOTE | 2021-02-22 07:46 | CT Scan Report ---
ABDOMEN AND PELVIS CT WITHOUT CONTRAST CT DOSE: 691.66 mGy.cm HISTORY: GI bleed. TECHNIQUE: Multiaxial CT images of the abdomen and pelvis were performed without contrast. A dose lo wering technique was utilized adhering to the principles of ALARA. COMPARISON STUDY: Abdomen and pelvis CT 03/19/2020. FINDINGS: No significant change in the innumerable groundglass subcentimeter pulmonary nodules measur ing up to 5 mm. The majority of these demonstrate central cavitation. No pneumoperitoneum. No pneumat osis. No suspicious lytic or blastic osseous lesions. Stable 1 cm hypodense lesion within the right h epatic lobe. This favors a cyst. The unenhanced gallbladder, spleen, left renal gland, and pancreas u nremarkable. Stable nodular thickening of the right adrenal gland. No renal stones or hydronephrosis. There are small left peripelvic renal cysts. No retroperitoneal lymphadenopathy. Normal caliber abdo alaina aorta. The bladder is unremarkable. The uterus is surgically absent. Small fat-containing right inguinal hernia. No pelvic free fluid. Suboptimal evaluation for bowel pathology due to the lack of intravenous and oral contrast. However, there is no definite bowel wall thickening or obstruction. No rmal appendix. No pelvic lymphadenopathy. IMPRESSION: 1. No bowel wall thickening or obstruction. 2. No hydronephrosis. 3. Normal appendix. 4. No change in the nonspecific subcentimeter groundglass cavitary nodules within the lung bases. ACT 112: Negative or not required by law. Electronically signed by: Jamie Reynolds M.D. 02/22/2021 7:44 AM
[2021-02-22] MEDS: hydroCHLOROthiazide 25 MG TAB PO SCH (08:34)
[2021-02-22] MEDS: CHOLECALCIFEROL 1,000 UNITS 25 MCG TAB PO SCH (08:35)
[2021-02-22] MEDS: SERTRALINE HCL 100 MG TABLET PO SCH (08:35)
[2021-02-22] MEDS: FERROUS SULFATE 325 MG TAB PO SCH ×2 (08:35→20:41)
--- NOTE | 2021-02-22 08:59 | Gastrointestinal Consultation ---
Date of Consultation February 22, 2021 Assessment & Plan (1) Anemia: -Keep NPO. -EGD today. -Continue Protonix drip at present; Dosing recommendations may change depending upon results of endoscopic evaluation. -Further recommendations regarding need for colonoscopy pending results of EGD. Supervising Physician Co-Signing Physician Notes I personally evaluated the patient and agree with the findings as documented by Ritika Georges, PAC Exam: abd: soft, nt, nd Proceed with EGD. risks/benefits and procedure discussed with patient, who agrees to proceed History of Present Illness Reason for Consultation: Anemia Attending Physician: Shantanu Shepherd History of Present Illness Patient is a 70 yo female admitted with shortness of breath and weakness. She has a PMH of a lung nodule for which she is currently undergoing a pulmonary workup. She also has a PMH of DM2, anxiety, anaplasmosis, A fib with RVR, CAD, allergic rhinitis, GERD, INEZ, hypothyroidism, hypertension, & hyperlipidemia. GI has been consulted due to microcytic anemia. This appears to have been discovered on 02/16 when her PCP was checking laboratory studies. Other than intermittent hemorrhoidal bleeding that has not changed for years, the patient denies any significant GI bleeding--no melena, no hematemesis. She had a colonoscopy in 2010 that was unremarkable. She was scheduled for a repeat surveillance colonoscopy this month with Dr. Young. In response to the patient's low H/H noted as an outpatient, she was referred to hematology. She had not made it to this appointment yet. She developed worsening shortness of breath and decided to present to the ER. Upon arrival, her H/H was stable from 02/16, actually higher but still notably anemic at 7.8/26.9. Prior to recent anemia, her last CBC was in March 2020 and she had a hemoglobin of 13.2. She was admitted to the hospital, kept NPO, and has been on a Protonix drip. No NSAID use. A CT of the abdomen/pelvis did not identify and obvious GI concerns. She notes she was given a blood transfusion last night and her H/H is unchanged. No pertinent family history. Allergies Allergy/AdvReac Type Severity Reaction Status Date / Time Sulfa (Sulfonamide Allergy Unknown UNKNOWN Verified 02/21/21 19:11 Antibiotics) citalopram [From Celexa] Allergy Unknown Verified 02/21/21 19:11 metformin AdvReac Mild Dizziness Verified 02/21/21 19:11 albuterol AdvReac Unknown racing Verified 02/21/21 19:11 heart Home Medications Medication Instructions Recorded Confirmed Type aspirin 81 mg tablet,delayed 81 mg PO PM 07/24/19 02/21/21 History release nitroglycerin 0.4 mg sublingual 0.4 mg SL Q5M PRN 07/26/19 02/21/21 History tablet psyllium husk 3.4 gram/5.4 gram 1 tbs PO DAILY PRN 03/10/20 02/21/21 History oral powder atorvastatin 20 mg PO HS 03/19/20 02/21/21 History lorazepam 1 mg PO Q8 PRN 03/21/20 02/21/21 History apixaban [Eliquis] 5 mg PO BID #30 tab 03/23/20 02/21/21 Rx hydrocortisone 2.5 % topical cream 1 appln [place] DIRECTED PRN #30 gm 03/30/20 02/21/21 Rx with perineal applicator hydrochlorothiazide 25 mg tablet 25 mg PO DAILY 06/01/20 02/21/21 History levothyroxine 25 mcg tablet 25 mcg PO QAM #30 tab 10/26/20 02/21/21 Rx cholecalciferol (vitamin D3) 25 2,000 unit PO QAM cap 01/04/21 02/21/21 History mcg (1,000 unit) capsule famotidine 20 mg tablet 20 mg PO DAILY #30 tab 01/04/21 02/21/21 Rx metoprolol succinate 25 mg 25 mg PO QPM tab 01/04/21 02/21/21 History tablet,extended release 24 hr multivitamin 1 tab PO QAM tab 01/04/21 02/21/21 History pantoprazole 40 mg tablet,delayed 40 mg PO DAILY #30 tab 01/04/21 02/21/21 Rx release sertraline 100 mg tablet 100 mg PO QAM tab 01/04/21 02/21/21 History blood sugar diagnostic #100 ea 01/08/21 02/21/21 Rx trazodone 50 mg tablet 50 mg PO QPM #30 tab 01/29/21 02/21/21 Rx ferrous sulfate 325 mg (65 mg 325 mg PO BID #60 tab 02/19/21 02/21/21 Rx iron) tablet Patient History Medical History Anemia Concussion Cough with sputum GERD (gastroesophageal reflux disease) Hemorrhoids History of coronary artery disease Hyperlipidemia Hypertension Hypothyroidism Infected lesion in nose Iron deficiency anemia Left bundle branch block Nasal congestion INEZ (obstructive sleep apnea) Surgical History H/O cardiac catheterization History of back surgery History of bilateral oophorectomy History of hernia surgery Hx of hysterectomy Family History Father Hypertension Heart disease Mother Stroke Other Breast cancer Myocardial infarction No family history of adverse response to anesthesia No family history of bleeding disorder Denies family history of Ovarian cancer Prostate cancer Colorectal cancer Social History Smoking Status: Never smoker Do You Dip or Chew Tobacco: No; Hx Alcohol Use: Yes Alcohol type: wine Hx Substance Use: No Preferred Language: Trinidadian Communication Ability: Effective 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 Beliefs That Will Affect Care: None marital status: Current Living Situation: Spouse current occupational status: retired How many Children do You have: 3 Other Information That Helps Us Care for You: No Feels Safe at Home: Yes Safety Concerns: Feels Safe At This Time caffeine: Yes Dental Care, Regularly: Yes Physical Activity Frequency: 1-2 Times per Week Seatbelt Use: always Sunscreen Use: Yes Assistive Devices: CPAP Review of Systems Constitutional: no fever and no chills Respiratory: no cough and no dyspnea Cardiovascular: no chest pain Gastrointestinal: no abdominal pain and no melena intermittent bright red blood she has attributed to hemorrhoids Musculoskeletal: no problem reported Psychiatric: no problem reported Hematologic / Lymphatic: no unexplained weight loss and no problem reported Physical Exam Constitutional: well developed Neck: normal visual inspection Respiratory: normal respiratory effort Cardiovascular: Extremities: no edema Gastrointestinal (Abdomen): Inspection/Auscultation: abdomen normal to inspection Musculoskeletal: Head/Neck/Chest: normocephalic Psychiatric: A+Ox3, euthymic affect Results & Data ([facility]) Vital Signs (Past 12 Hours) Vital Signs Temp Pulse Pulse Resp BP BP Pulse Ox 02/22/21 03:46 36.8 C 51 L 20 123/52 L 96 02/21/21 23:31 36.7 C 113 H 18 120/78 96 02/21/21 23:13 36.9 C 60 18 145/86 H 95 02/21/21 23:00 36.8 C 54 L 19 132/62 97 02/21/21 22:30 36.8 C 54 L 20 135/57 L 97 02/21/21 22:15 37.2 C 51 L 20 132/57 L 97 02/21/21 21:53 36.6 C 49 L 12 138/54 L 96 02/21/21 21:00 51 L 21 143/57 H 97 PG Care Time/CCT Total # of Minutes Spent Total Time Spent with Patient: Total time spent is greater than 50% in coordination of care (as documented) at patient's floor/unit and/or counseling patient: Coding Level of Care Code 40227 Initial Inpt Care Lvl 3 Diagnoses Anemia D64.9 Anemia type: unspecified type (1) Anemia Anemia type: unspecified type Qualified Code(s): D64.9 - Anemia, unspecified
--- NOTE | 2021-02-22 10:41 | Anesthesiology Consultation ---
Date of Service February 22, 2021 Assessment & Plan (1) Encounter for pre-operative examination: History Surgery Operation Date: 02/22/21 17:00 Proposed Procedures p Esophagogastroduodenoscopy Dr. Mckay - Pablo Mckay MD Height/Weight Height: 5 ft 3 in Weight: 91 kg Allergies Allergy/AdvReac Type Severity Reaction Status Date / Time Sulfa (Sulfonamide Allergy Unknown UNKNOWN Verified 02/21/21 19:11 Antibiotics) citalopram [From Celexa] Allergy Unknown Verified 02/21/21 19:11 metformin AdvReac Mild Dizziness Verified 02/21/21 19:11 albuterol AdvReac Unknown racing Verified 02/21/21 19:11 heart Medications Home Medications Medication Instructions Recorded Confirmed Last Taken aspirin 81 mg tablet,delayed 81 mg PO PM 07/24/19 02/21/21 03/18/20 release nitroglycerin 0.4 mg sublingual 0.4 mg SL Q5M PRN 07/26/19 02/21/21 Unknown tablet psyllium husk 3.4 gram/5.4 gram 1 tbs PO DAILY PRN 03/10/20 02/21/21 Unknown oral powder atorvastatin 20 mg PO HS 03/19/20 02/21/21 03/18/20 lorazepam 1 mg PO Q8 PRN 03/21/20 02/21/21 Unknown apixaban [Eliquis] 5 mg PO BID #30 tab 03/23/20 02/21/21 02/21/21 hydrocortisone 2.5 % topical cream 1 appln [place] DIRECTED PRN #30 gm 03/30/20 02/21/21 Unknown with perineal applicator hydrochlorothiazide 25 mg tablet 25 mg PO DAILY 06/01/20 02/21/21 02/21/21 levothyroxine 25 mcg tablet 25 mcg PO QAM #30 tab 10/26/20 02/21/21 02/21/21 cholecalciferol (vitamin D3) 25 2,000 unit PO QAM cap 01/04/21 02/21/21 02/21/21 mcg (1,000 unit) capsule famotidine 20 mg tablet 20 mg PO DAILY #30 tab 01/04/21 02/21/21 02/21/21 metoprolol succinate 25 mg 25 mg PO QPM tab 01/04/21 02/21/21 Unknown tablet,extended release 24 hr multivitamin 1 tab PO QAM tab 01/04/21 02/21/21 02/21/21 pantoprazole 40 mg tablet,delayed 40 mg PO DAILY #30 tab 01/04/21 02/21/21 02/21/21 release sertraline 100 mg tablet 100 mg PO QAM tab 01/04/21 02/21/21 02/21/21 blood sugar diagnostic #100 ea 01/08/21 02/21/21 Unknown trazodone 50 mg tablet 50 mg PO QPM #30 tab 01/29/21 02/21/21 Unknown ferrous sulfate 325 mg (65 mg 325 mg PO BID #60 tab 02/19/21 02/21/21 02/21/21 iron) tablet Active Medications Generic Name Dose Route Start Last Admin Trade Name Isaiahq PRN Reason Stop Dose Admin Ferrous Sulfate 325 mg 02/22/21 09:00 02/22/21 08:35 Ferrous Sulfate 325 Mg Tab PO 03/24/21 08:59 325 mg BID XANDER Administration Hydrochlorothiazide 25 mg 02/22/21 09:00 02/22/21 08:34 Hydrochlorothiazide 25 Mg Tab PO 03/24/21 08:59 25 mg DAILY XANDER Administration Sodium Chloride 1,000 mls @ 125 mls/hr 02/21/21 18:30 02/22/21 10:13 Nss 1000ml IV 03/23/21 18:29 125 mls/hr .Q8H XANDER Administration Pantoprazole Sodium 40 mg/ 100 mls @ 20 mls/hr 02/21/21 18:51 02/22/21 10:10 Dextrose IV 03/23/21 18:50 8 mg/hr Q5H XANDER 20 mls/hr Administration 8 MG/HR Levothyroxine Sodium 25 mcg 02/22/21 06:30 02/22/21 06:18 Levothyroxine Sodium 25 Mcg Tablet PO 03/24/21 06:29 25 mcg DAILYBB XANDER Administration Sertraline HCl 100 mg 02/22/21 09:00 02/22/21 08:35 Sertraline Hcl 100 Mg Tablet PO 03/24/21 08:59 100 mg QAM XANDER Administration Vitamin D 2,000 units 02/22/21 09:00 02/22/21 08:35 Cholecalciferol 1,000 Units 25 Mcg Tab PO 03/24/21 08:59 2,000 units QAM XANDER Administration Past Medical History Medical History Anemia Concussion Cough with sputum GERD (gastroesophageal reflux disease) Hemorrhoids History of coronary artery disease Hyperlipidemia Hypertension Hypothyroidism Infected lesion in nose Iron deficiency anemia Left bundle branch block Nasal congestion INEZ (obstructive sleep apnea) Past Family History Family History Father Hypertension Heart disease Mother Stroke Other Breast cancer Myocardial infarction No family history of adverse response to anesthesia No family history of bleeding disorder Denies family history of Ovarian cancer Prostate cancer Colorectal cancer Past Surgical History Surgical History H/O cardiac catheterization History of back surgery History of bilateral oophorectomy History of hernia surgery Hx of hysterectomy Social History Smoking Status: Never smoker Do You Dip or Chew Tobacco: No Hx Alcohol Use: Yes Alcohol type: wine alcohol intake frequency: holidays/special occasions only Hx Substance Use: No Physical Exam Vital Signs Last Vital Signs Temp 36.8 C 02/22/21 03:46 Pulse 51 L 02/22/21 03:46 Resp 20 02/22/21 03:46 BP 123/52 L 02/22/21 03:46 Pulse Ox 96 02/22/21 03:46 Testing Laboratory Results 02/22/21 05:07 02/22/21 05:07 PT 10.3 Seconds (9.0-12.0) 02/21/21 18:42 INR 1.0 (0.9-1.1) 02/21/21 18:42 Blood Type A Positive 02/21/21 18:42 Antibody Screen NEGATIVE 02/21/21 18:42 Electrocardiogram Date: 02/21/21 Sinus bradycardia Left axis deviation Left bundle branch block Abnormal ECG When compared with ECG of 21-MAR-2020 23:35, No significant change was found Chest X-Ray Date: 02/21/21 1. No acute cardiopulmonary findings. 2. Mild cardiomegaly. 3. Numerous small pulmonary nodules on CT of December 27, 2020 not well visualized on this exam, likely due to technique.
[2021-02-22] MEDS ORDERED: LIDOCAINE HCL 2% 2 ML VIAL/AMP(20MG/ML) INFIL ONE (12:00)
[2021-02-22] MEDS ORDERED: PROPOFOL IV EMULSION 10 MG/ML 20 ML VIAL IV ONE ×2 (12:00→12:30)
--- NOTE | 2021-02-22 12:39 | GI REPORT ---
Patient Name: Ángel Kim Procedure Date: 02/22/2021 12:24 PM Date of : 1950 Admit Type: Inpatient Age: 70 Gender: Female Attending MD: Pablo Mckay MD Procedure: Upper GI endoscopy Providers: Pablo Mckay MD Referring MD: Shantanu Shepherd M.d. Indications: Unexplained iron deficiency anemia Medicines: Monitored Anesthesia Care Complications: No immediate complications. Estimated blood loss: None. Estimated Blood Loss: Estimated blood loss: none. Procedure: Pre-Anesthesia Assessment: - Prior Anticoagulants: The patient has taken no previous anticoagulant or antiplatelet agents. - ASA Grade Assessment: II - A patient with mild systemic disease. After obtaining informed consent, the endoscope was passed under direct vision. Throughout the procedure, the patient's blood pressure, pulse, and oxygen saturations were monitored continuously. The Scope was introduced through the mouth, and advanced to the second part of duodenum. The upper GI endoscopy was accomplished without difficulty. The patient tolerated the procedure well. Findings: The examined esophagus was normal. Diffuse mild inflammation characterized by erosions and erythema was found in the stomach. Biopsies were taken with a cold forceps for Helicobacter pylori testing. Estimated blood loss: none. The duodenal bulb and second portion of the duodenum were normal. Impression: - Normal esophagus. - Gastritis. Biopsied. - Normal duodenal bulb and second portion of the duodenum. Recommendation: - Return patient to [facility] for [facility] care. - Advance diet as tolerated today. - Await pathology results. -protonix 40 mg daily for at least 3 months -follow up in 1 week as an outpatient Pablo Mckay MD 02/22/2021 12:38:41 PM This report has been signed electronically. Note Initiated On: 02/22/2021 12:24 PM Number of Addenda: 0 I attest to the content of the Intraoperative Record and orders documented therein, exceptions below {[id number]}
--- NOTE | 2021-02-22 12:46 | Procedure Note ---
Procedure Note Date of Service February 22, 2021 GI procedure note EGD findings: gastritis, erosions, no active bleeding noted. stomach biopsied Recs/impression: suspect anemia is from chronic disease/possibly related to lung nodule; low suspicion for GI blood loss, especially considering lack of response to transfusions --protonix 40 mg daily for at least 3 months --f/u path results --supportive care, trend H/H --scheduled for colonoscopy with Dr. Hector dugan this month --consider further workup of lung nodule Pablo Mckay MD Gastroenterology Coding
--- NOTE | 2021-02-22 13:40 | Anesthesiology Progress Note ---
Date of Service February 22, 2021 Anesthesia Post Procedure Vital Signs Vital Signs: Temp Pulse Pulse Resp BP BP Pulse Ox 02/22/21 13:10 55 L 16 132/66 97 02/22/21 12:52 65 12 139/80 95 02/22/21 12:35 50 L 12 122/60 94 02/22/21 11:14 36.3 C L 66 18 160/68 H 98 02/22/21 03:46 36.8 C 51 L 20 123/52 L 96 02/21/21 23:31 36.7 C 113 H 18 120/78 96 02/21/21 23:13 36.9 C 60 18 145/86 H 95 02/21/21 23:00 36.8 C 54 L 19 132/62 97 02/21/21 22:30 36.8 C 54 L 20 135/57 L 97 02/21/21 22:15 37.2 C 51 L 20 132/57 L 97 02/21/21 21:53 36.6 C 49 L 12 138/54 L 96 02/21/21 21:00 51 L 21 143/57 H 97 02/21/21 20:30 52 L 19 139/77 98 02/21/21 20:01 48 L 15 127/51 L 98 02/21/21 19:30 49 L 15 138/58 L 96 02/21/21 19:00 51 L 18 121/74 98 02/21/21 18:56 100 02/21/21 18:49 49 L 10 L 141/64 H 98 02/21/21 18:14 36.4 C L 59 L 18 154/73 H 99 Transfer of Care Handoff Completed per policy Notes Mental Status: alert / awake / arousable and participated in evaluation Patient Amnestic to Procedure: Yes Nausea / Vomiting: adequately controlled Pain: adequately controlled Airway Patency, RR, SpO2: stable & adequate BP & HR: stable & adequate Hydration State: stable & adequate Anesthetic Complications: no major complications apparent and Pt Satisfied with anesthetic care
--- NOTE | 2021-02-22 20:10 | Electrocardiogram Report ---
Test Reason : Blood Pressure : / mmHG Vent. Rate : 052 BPM Atrial Rate : 052 BPM P-R Int : 184 ms QRS Dur : 152 ms QT Int : 484 ms P-R-T Axes : 041 -38 085 degrees QTc Int : 450 ms Sinus bradycardia Left axis deviation Left bundle branch block Abnormal ECG When compared with ECG of 21-MAR-2020 23:35, No significant change was found Confirmed by Jacques Cisneros ([id number]) on 02/22/2021 8:10:15 PM Referred By: REFERRED SELF Confirmed By:Jacques Cisneros
[2021-02-22] MEDS: traZODone HCL 50 MG TAB PO SCH (20:40)
[2021-02-22] MEDS: ATORVASTATIN 20 MG TAB PO SCH (20:41)
[2021-02-22] MEDS: METOPROLOL SUCC 25MG EXT REL TAB PO SCH (21:36)
--- NOTE | 2021-02-22 23:05 | Hospitalist Progress Note ---
Date of Service February 22, 2021 Assessment & Plan (1) Iron deficiency anemia: F w/ pMHx. of DM, lumbar radicular pain, anxiety, insomnia, Anaplasmosis, CAD with [place] vessels, GERD, INEZ, LBBB, hypothyroid, HTN, HLD presents with anemia and fatigue found to be FOB+. Microcytic anemia, unclear etiology hgb 7.5 concern for upper GIB vs. iron deficiency or mixed picture CT A/P STATRAD read without bleed BP 143/57, HR 51, last dose of Eliquis 02/21 AM - consulted GI for concern of upper GIB - PPI drip - NPO after midnight -Iron studies show microcytic iron def anemia. -required 1 unit of transfusion of PRBC. Anxiety - continue sertraline and Lorazepam PRN Insomnia - continue Trazodone INEZ - CPAP overnight (2) GIB (gastrointestinal bleeding): Gi consulted. will do upper GI scope outpatient colonoscopy scheduled (3) Diabetes mellitus: a1c is 6.4 sandra monitor (4) Depression with anxiety: (5) Hypothyroidism: continue home meds (6) Hypertension: HTN - continue HCTZ (7) Hyperlipidemia: stabl continue home meds (8) Atrial fibrillation with rapid ventricular response: History of above diagnosis diagnosed when she was admitted in 2019 for Anaplasmosis, on Eliquis - she has been stable overnight, will transfer to medical - holding Eliquis for now given concern for GIB -currently rate controlled (9) CAD in [place] artery: Holding aspirin for now due to possible GI bleed Admission and Anticipated Discharge Date Admission Date: February 21, 2021 Subjective 70yo female reports no new symptoms. She denies any melena, or blood in her stools Review of Systems Review of Systems: All systems reviewed & are unremarkable except as noted in HPI & below Physical Exam Physical Exam: Constitutional: WD/WN, vitals as above Eyes: PERRL, conjunctivae normal, anicteric sclerae ENMT: external ear and nose normal, oropharynx normal Neck: normal visual inspection Respiratory: normal respiratory effort, lungs clear to auscultation Cardiovascular: Rate/Rhythm: regular rhythm and + bradycardic Gastrointestinal (Abdomen): normal bowel sounds, soft, nontender, no hepatosplenomegaly Skin: no rashes, warm and dry Neurologic: PERRL, EOMI, accommodation nl, no face palsy, no dysarthria Psychiatric: Orientation: alert and oriented x 3 Eye Contact: good eye contact Speech: normal rate/rhythm/volume of speech Affect: euthymic affect Results & Data Results & Data ([facility]) Vital Signs (Past 12 Hours) Vital Signs Temp Pulse Pulse Pulse Resp BP Pulse Ox 02/22/21 22:32 58 L 16 96 02/22/21 22:01 36.9 C 53 L 14 148/74 H 96 02/22/21 20:34 150/70 H 02/22/21 15:12 36.9 C 50 L 16 146/71 H 98 02/22/21 14:02 36.7 C 49 L 16 138/76 95 02/22/21 13:10 55 L 16 132/66 97 02/22/21 12:52 65 12 139/80 95 02/22/21 12:35 50 L 12 122/60 94 02/22/21 11:14 36.3 C L 66 18 160/68 H 98 PG Care Time/CCT Total # of Minutes Spent Total Time Spent with Patient: Total time spent is greater than 50% in coordination of care (as documented) at patient's floor/unit and/or counseling patient: Coding Level of Care Code 16706 Subseq Hosp Care Lvl 3 Diagnoses Iron deficiency anemia D50.9 GIB (gastrointestinal bleeding) K92.2 GI bleed type/associated pathology: unspecified gastrointestinal hemorrhage type Diabetes mellitus E11.9 Depression with anxiety F41.8 Hypothyroidism E03.9 Hypertension I10 Hyperlipidemia E78.5 Atrial fibrillation with rapid ventricular response I48.91 CAD in [place] artery I25.10 Time Spent (min) 35 (1) GIB (gastrointestinal bleeding) GI bleed type/associated pathology: unspecified gastrointestinal hemorrhage type Qualified Code(s): K92.2 - Gastrointestinal hemorrhage, unspecified
[2021-02-22 23:21] LABS: Hematocrit (blood only) 27.2 % (37-47); Hemoglobin 7.9 g/dL (12.0-16.0)
[2021-02-23] MEDS: SODIUM CHLORIDE 0.9% 1000ML 1,000 ML IV SCH ×2 (04:11→10:21)
[2021-02-23] MEDS: PANTOprazole 40 MG in DEXTROSE 5% 100 ML IV SCH ×3 (04:11→08:56)
[2021-02-23] MEDS: LEVOTHYROXINE SODIUM 25 MCG TABLET PO SCH (06:23)
[2021-02-23 06:39] LABS: Hematocrit (blood only) 25.9 % (37-47); Hemoglobin 7.5 g/dL (12.0-16.0); Mean Corpuscular Hemoglobin 19.9 pg (25-34); Mean Corpuscular Volume 68.7 fL (80-100); Mean Platelet Volume 10.6 fL (7.4-10.4); Platelet Count 217 K/uL (130-400); RDW Standard Deviation 54.3 fL (36.4-46.3); Red Blood Count 3.77 M/uL (4.2-5.4); White Blood Count 4.26 K/uL (4.8-10.8)
--- NOTE | 2021-02-23 06:47 | Billing Data ---
Date of Service February 23, 2021 Coding Level of Care Code 73393 Initial Inpt Care Lvl 3
[2021-02-23 06:56] LABS: BUN Creatinine Ratio 15.1 (10-20); Calcium 8.5 mg/dl (8.5-10.1); Est GFR (African American) 87.9; Est GFR (Non-African American) 75.8; Potassium 3.3 mmol/L (3.5-5.1)
[2021-02-23] MEDS: FERROUS SULFATE 325 MG TAB PO SCH ×2 (08:57→20:31)
[2021-02-23] MEDS: CHOLECALCIFEROL 1,000 UNITS 25 MCG TAB PO SCH (08:57)
[2021-02-23] MEDS: SERTRALINE HCL 100 MG TABLET PO SCH (08:57)
[2021-02-23] MEDS: hydroCHLOROthiazide 25 MG TAB PO SCH (08:57)
--- NOTE | 2021-02-23 11:57 | Hospitalist Progress Note ---
Date of Service February 23, 2021 Assessment & Plan (1) Iron deficiency anemia: F w/ pMHx. of DM, lumbar radicular pain, anxiety, insomnia, Anaplasmosis, CAD with [place] vessels, GERD, INEZ, LBBB, hypothyroid, HTN, HLD presents with anemia and fatigue found to be FOB+. Acute blood loss anemia treated with 1 unit PRBC's Microcytic anemia, unclear etiology hgb 7.5 concern for upper GIB vs. iron deficiency or mixed picture CT A/P STATRAD read without bleed BP 143/57, HR 51, last dose of Eliquis 02/21 AM - consulted GI for concern of upper GIB: upper endoscopy is ngative -Transition PPI drip to oral PPI 40 mg daily - resume diet. -Patient is undecided if she will like to have colonscopy now or in 4 weeks. -will discuss with family. Had extensive discussion with patient about holding eliquis, risk of stroke and timing of colonoscopy. -Iron studies show microcytic iron def anemia. -required 1 unit of transfusion of PRBC. -will order IV iron x1. -stop IVF which may be diluting her hemoglobin. Anxiety - continue sertraline and Lorazepam PRN Insomnia - continue Trazodone INEZ - CPAP overnight (2) GIB (gastrointestinal bleeding): Gi consulted. will do upper GI scope outpatient colonoscopy scheduled patient is considering inpatient scope (3) Diabetes mellitus: a1c is 6.4 sandra monitor (4) Depression with anxiety: (5) Hypothyroidism: continue home meds (6) Hypertension: HTN - continue HCTZ (7) Hyperlipidemia: stabl continue home meds (8) Atrial fibrillation with rapid ventricular response: History of above diagnosis diagnosed when she was admitted in 2019 for Anaplasmosis, on Eliquis - she has been stable overnight, will transfer to medical - holding Eliquis for now given concern for GIB -currently rate controlled (9) CAD in [place] artery: Holding aspirin for now due to possible GI bleed Admission and Anticipated Discharge Date Admission Date: February 21, 2021 Subjective 70 yo female reports feeling well. She has no new complaints. No blood or dark stools. No longer is feeling dizzy. Review of Systems Review of Systems: All systems reviewed & are unremarkable except as noted in HPI & below Physical Exam Physical Exam: Constitutional: WD/WN, vitals as above Eyes: PERRL, conjunctivae normal, anicteric sclerae ENMT: external ear and nose normal, oropharynx normal Neck: normal visual inspection Respiratory: normal respiratory effort, lungs clear to auscultation Cardiovascular: Rate/Rhythm: regular rhythm and + bradycardic Gastrointestinal (Abdomen): normal bowel sounds, soft, nontender, no hepatosplenomegaly Skin: no rashes, warm and dry Neurologic: PERRL, EOMI, accommodation nl, no face palsy, no dysarthria Psychiatric: Orientation: alert and oriented x 3 Eye Contact: good eye contact Speech: normal rate/rhythm/volume of speech Affect: euthymic affect Results & Data Results & Data ([facility]) Vital Signs (Past 12 Hours) Vital Signs Temp Pulse Resp BP Pulse Ox 02/23/21 07:33 36.6 C 50 L 16 138/68 93 PG Care Time/CCT Total # of Minutes Spent Total Time Spent with Patient: Total time spent is greater than 50% in coordination of care (as documented) at patient's floor/unit and/or counseling patient: Coding Level of Care Code 68938 Subseq Hosp Care Lvl 3 Diagnoses Iron deficiency anemia D50.9 GIB (gastrointestinal bleeding) K92.2 GI bleed type/associated pathology: unspecified gastrointestinal hemorrhage type Diabetes mellitus E11.9 Depression with anxiety F41.8 Hypothyroidism E03.9 Hypertension I10 Hyperlipidemia E78.5 Atrial fibrillation with rapid ventricular response I48.91 CAD in [place] artery I25.10 Time Spent (min) 40 (1) GIB (gastrointestinal bleeding) GI bleed type/associated pathology: unspecified gastrointestinal hemorrhage type Qualified Code(s): K92.2 - Gastrointestinal hemorrhage, unspecified
[2021-02-23] MEDS ORDERED: IRON SUCROSE 300 MG in SODIUM CHLORIDE 0.9% 250 ML IV ONE (12:15)
[2021-02-23 19:05] LABS: Hematocrit (blood only) 27.8 % (37-47); Hemoglobin 8.1 g/dL (12.0-16.0)
[2021-02-23] MEDS: traZODone HCL 50 MG TAB PO SCH (20:31)
[2021-02-23] MEDS: ATORVASTATIN 20 MG TAB PO SCH (20:31)
[2021-02-23] MEDS: METOPROLOL SUCC 25MG EXT REL TAB PO SCH (20:31)
[2021-02-24] MEDS: LEVOTHYROXINE SODIUM 25 MCG TABLET PO SCH (05:39)
[2021-02-24 06:21] LABS: Hematocrit (blood only) 28.6 % (37-47); Hemoglobin 8.4 g/dL (12.0-16.0); Mean Corpuscular Hemoglobin 20.3 pg (25-34); Mean Corpuscular Hgb Conc 29.4 g/dL (32-36); Mean Corpuscular Volume 69.2 fL (80-100); Platelet Count 225 K/uL (130-400); RDW Coefficient of Variation 22.7 % (11.5-14.5); RDW Standard Deviation 55.8 fL (36.4-46.3); Red Blood Count 4.13 M/uL (4.2-5.4)
[2021-02-24] MEDS: CHOLECALCIFEROL 1,000 UNITS 25 MCG TAB PO SCH (09:01)
[2021-02-24] MEDS: SERTRALINE HCL 100 MG TABLET PO SCH (09:02)
[2021-02-24] MEDS: FERROUS SULFATE 325 MG TAB PO SCH ×2 (09:02→20:30)
[2021-02-24] MEDS: PANTOprazole 40 MG TAB PO SCH (09:02)
[2021-02-24] MEDS: hydroCHLOROthiazide 25 MG TAB PO SCH (09:02)
[2021-02-24] MEDS: traZODone HCL 50 MG TAB PO SCH (20:30)
[2021-02-24] MEDS: ATORVASTATIN 20 MG TAB PO SCH (20:30)
[2021-02-24] MEDS: METOPROLOL SUCC 25MG EXT REL TAB PO SCH (20:30)
--- NOTE | 2021-02-24 22:55 | Hospitalist Progress Note ---
Date of Service February 24, 2021 Assessment & Plan (1) Iron deficiency anemia: F w/ pMHx. 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 Acute blood loss anemia treated with 1 unit PRBC's Microcytic anemia, unclear etiology hgb 7.5 concern for upper GIB vs. iron deficiency or mixed picture CT A/P STATRAD read without bleed BP 143/57, HR 51, last dose of Eliquis 02/21 AM - consulted GI for concern of GIB: upper endoscopy is negative -Transition PPI drip to oral PPI 40 mg daily - resume diet. Patient is now agreeable to having a colonoscopy on Friday. Had extensive discussion with patient about holding eliquis, risk of stroke and timing of colonoscopy. -Iron studies show microcytic iron def anemia. -required 1 unit of transfusion of PRBC. -will order IV iron sucorse (venofer) 300mg X1 on 02/23 -stop IVF which may be diluting hemoglobin on 02/23. -Hemoglobin now above 8 on 02/24. -will order prep for colonscopy tomorrow. Anxiety - continue sertraline and Lorazepam PRN Insomnia - continue Trazodone INEZ - CPAP overnight (2) GIB (gastrointestinal bleeding): Gi consulted. will do upper GI scope outpatient colonoscopy scheduled patient is considering inpatient scope (3) Diabetes mellitus: a1c is 6.4 sandra monitor (4) Depression with anxiety: (5) Hypothyroidism: continue home meds (6) Hypertension: HTN - continue HCTZ (7) Hyperlipidemia: stabl continue home meds (8) Atrial fibrillation with rapid ventricular response: History of above diagnosis diagnosed when she was admitted in 2019 for Anaplasmosis, on Eliquis - she has been stable overnight, will transfer to medical - holding Eliquis for now given concern for GIB -currently rate controlled (9) CAD in [place] artery: Holding aspirin for now due to possible GI bleed Admission and Anticipated Discharge Date Admission Date: February 21, 2021 Subjective 70 yo female reports feeling better today. She no longer is dizzy. She reports she ad a discussion with her family, some of which are physicians. She ultimately decided on staying for a colonoscopy on Friday. Review of Systems Review of Systems: All systems reviewed & are unremarkable except as noted in HPI & below Physical Exam Physical Exam: Constitutional: WD/WN, vitals as above Eyes: PERRL, conjunctivae normal, anicteric sclerae ENMT: external ear and nose normal, oropharynx normal Neck: normal visual inspection Respiratory: normal respiratory effort, lungs clear to auscultation Cardiovascular: Rate/Rhythm: regular rhythm and + bradycardic Gastrointestinal (Abdomen): normal bowel sounds, soft, nontender, no hepatosplenomegaly Skin: no rashes, warm and dry Neurologic: PERRL, EOMI, accommodation nl, no face palsy, no dysarthria Psychiatric: Orientation: alert and oriented x 3 Eye Contact: good eye contact Speech: normal rate/rhythm/volume of speech Affect: euthymic affect Results & Data Results & [facility] ([facility]) Vital Signs (Past 12 Hours) Vital Signs Temp Pulse Resp BP Pulse Ox 02/24/21 22:04 36.6 C 55 L 15 138/64 96 02/24/21 14:59 36.7 C 52 L 16 140/66 91 PG Care Time/CCT Total # of Minutes Spent Total Time Spent with Patient: Total time spent is greater than 50% in coordination of care (as documented) at patient's floor/unit and/or counseling patient: Coding Level of Care Code 08088 Subseq Hosp Care Lvl 3 Diagnoses Iron deficiency anemia D50.9 GIB (gastrointestinal bleeding) K92.2 GI bleed type/associated pathology: unspecified gastrointestinal hemorrhage type Diabetes mellitus E11.9 Depression with anxiety F41.8 Hypothyroidism E03.9 Hypertension I10 Hyperlipidemia E78.5 Atrial fibrillation with rapid ventricular response I48.91 CAD in [place] artery I25.10 Time Spent (min) 35 (1) GIB (gastrointestinal bleeding) GI bleed type/associated pathology: unspecified gastrointestinal hemorrhage type Qualified Code(s): K92.2 - Gastrointestinal hemorrhage, unspecified
[2021-02-25] MEDS: LEVOTHYROXINE SODIUM 25 MCG TABLET PO SCH (06:09)
[2021-02-25] MEDS: PANTOprazole 40 MG TAB PO SCH (08:02)
[2021-02-25] MEDS: FERROUS SULFATE 325 MG TAB PO SCH ×2 (08:02→20:43)
[2021-02-25] MEDS: CHOLECALCIFEROL 1,000 UNITS 25 MCG TAB PO SCH (08:03)
[2021-02-25] MEDS: hydroCHLOROthiazide 25 MG TAB PO SCH (08:03)
[2021-02-25] MEDS: SERTRALINE HCL 100 MG TABLET PO SCH (08:03)
[2021-02-25 09:48] LABS: Hematocrit (blood only) 30.3 % (37-47); Hemoglobin 8.8 g/dL (12.0-16.0); Mean Corpuscular Hemoglobin 20.4 pg (25-34); Mean Corpuscular Volume 70.3 fL (80-100); Nucleated RBC # (auto) 0.03 K/uL (0-0); Nucleated RBC % (auto) 0.5 %; Platelet Count 220 K/uL (130-400); RDW Coefficient of Variation 23.3 % (11.5-14.5); RDW Standard Deviation 55.8 fL (36.4-46.3); Red Blood Count 4.31 M/uL (4.2-5.4); White Blood Count 4.87 K/uL (4.8-10.8)
[2021-02-25 10:05] LABS: BUN Creatinine Ratio 20.3 (10-20); Calcium 9.4 mg/dl (8.5-10.1); Creatinine Clr Calc Pharmacy 70.1 ml/min; Est GFR (African American) 86.6; Est GFR (Non-African American) 74.7; Potassium 3.3 mmol/L (3.5-5.1)
--- NOTE | 2021-02-25 13:51 | Hospitalist Progress Note ---
Date of Service February 25, 2021 Assessment & Plan (1) Iron deficiency anemia: Microcytic anemia. Hgb was 7.5 on admission. EGD on 02/22 showed gastritis, but no PUD. - Up to 7.9 after 1 unit PRBCs, but has been increasing with iron sucrose 300 mg on 02/23. - Hgb up to 8.8 on 02/25. - Colonoscopy planned for 02/26. Prep ordered and patient willing to stay for this. - Continue PPI PO daily x 1 month. INEZ - CPAP overnight (2) Atrial fibrillation with rapid ventricular response: History of. 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 Chads-Vasc is 3 (age, female, HTN), giving her a 3.2% risk of CVA/TIA/embolism per year. - Holding Eliquis for now given concern for GIB - Currently bradycardic in 50-60 range with beta-ludy - Is going to follow up with cardiology re: Holter monitor to see how much afib burden she has. (3) Hypertension: BP stable today at 120/60. - Continue metoprolol for afib - Hold HCTZ tomorrow to avoid dehydration during bowel prep (4) Depression with anxiety: No issues presently. - Continue sertraline and Lorazepam PRN (5) Hypothyroidism: TSH was 2.8 in 03/2020. No signs/symptoms of hypo-/hyperthyroidism. - Continue home Synthroid 25 mcg - Recheck TSH in the morning (6) CAD in [place] artery: Mild, non-obstructive mid-LAD lesions (25%) seen on C in [place] in 09/2011. - Holding aspirin for now due to possible GI bleed - Continue statin (7) Diabetes mellitus: A1c was 6.4% in 12/2020, meaning she is pre-diabetic, rather than diabetic. - Outpatient follow-up (8) Insomnia: - Continue trazodone (9) INEZ (obstructive sleep apnea): - CPAP HS (10) DVT prophylaxis: SCDs - Holding heparin products and home Eliquis until colonoscopy done Admission and Anticipated Discharge Date Admission Date: February 21, 2021 Subjective Doing well today. No major issues overall. She has more energy than on admission. Reports no fevers/chills, chest pain, shortness of breath, abdominal pain, nausea, or vomiting. Physical Exam Constitutional: WD/WN, vitals as above Eyes: EOM intact bilaterally; no conjunctival abnormality ENMT: external ear and nose normal, oropharynx normal Neck: trachea midline, no thyromegaly normal visual inspection Respiratory: normal respiratory effort, lungs clear to auscultation no respiratory distress Cardiovascular: RRR, no murmur, no edema Gastrointestinal (Abdomen): Inspection/Auscultation: abdomen normal to inspection; abdomen not distended Musculoskeletal: no cyanosis or clubbing, extremities motor strength 5/5 Skin: no rashes, warm and dry Neurologic: moves all extremities and awake Psychiatric: Orientation: alert, oriented to person and cooperative Results & Data Results & Data ([facility]) Vital Signs (Past 12 Hours) Vital Signs Temp Pulse Resp BP Pulse Ox 02/25/21 13:14 36.2 C L 53 L 18 122/62 100 02/25/21 07:54 36.6 C 57 L 18 124/58 L 91 PG Care Time/CCT Total # of Minutes Spent Total Time Spent with Patient: Total time spent is greater than 50% in coordination of care (as documented) at patient's floor/unit and/or counseling patient: Coding Level of Care Code 60131 Subseq Hosp Care Lvl 3 Diagnoses Iron deficiency anemia D50.9 Atrial fibrillation with rapid ventricular response I48.91 Hypertension I10 Depression with anxiety F41.8 Hypothyroidism E03.9 CAD in [place] artery I25.10 Diabetes mellitus E11.9 Insomnia G47.00 INEZ (obstructive sleep apnea) G47.33 DVT prophylaxis Z29.9
[2021-02-25] MEDS ORDERED: LAVAGE SOLUTION 4000ML PO SCH (18:30)
[2021-02-25] MEDS: METOPROLOL SUCC 25MG EXT REL TAB PO SCH (20:04)
[2021-02-25] MEDS: ATORVASTATIN 20 MG TAB PO SCH (20:43)
[2021-02-25] MEDS: traZODone HCL 50 MG TAB PO SCH (20:43)
[2021-02-26] MEDS: LEVOTHYROXINE SODIUM 25 MCG TABLET PO SCH (05:58)
[2021-02-26 06:44] LABS: Hematocrit (blood only) 30.1 % (37-47); Hemoglobin 8.7 g/dL (12.0-16.0); Mean Corpuscular Hemoglobin 20.7 pg (25-34); Mean Corpuscular Hgb Conc 28.9 g/dL (32-36); Mean Corpuscular Volume 71.7 fL (80-100); Mean Platelet Volume 10.4 fL (7.4-10.4); Platelet Count 243 K/uL (130-400); RDW Coefficient of Variation 24.1 % (11.5-14.5); RDW Standard Deviation 56.5 fL (36.4-46.3); White Blood Count 5.88 K/uL (4.8-10.8)
[2021-02-26 06:55] LABS: BUN Creatinine Ratio 16.2 (10-20); Calcium 9.8 mg/dl (8.5-10.1); Creatinine Clr Calc Pharmacy 80.1 ml/min; Est GFR (African American) 101.7; Est GFR (Non-African American) 87.8; Magnesium 2.2 mg/dl (1.8-2.4); Potassium 3.7 mmol/L (3.5-5.1)
[2021-02-26 07:05] LABS: Thyroid Stimulating Hormone 2.67 uIu/ml (0.300-4.500)
--- NOTE | 2021-02-26 09:17 | History & Physical Bridge Note ---
Date of Service February 26, 2021 History & Physical Bridge Note I have examined the patient, reviewed the History & Physical and in the interval since the performance of the History & Physical I have noted the following changes of clinical significance: no changes noted. H/H 8.7/30.1. Patient completed a bowel preparation last night. She is passing gas & liquid at this point. She has been NPO since prior to midnight with the exception of the bowel prep. Proceed with colonoscopy with Dr. Mckay today. risks/benefits and procedure discussed with patient, who agrees to proceed
[2021-02-26] MEDS ORDERED: NORMOSOL-R 250 ML IV ONE (10:31)
[2021-02-26] MEDS ORDERED: SODIUM CHLORIDE 0.9% 1000ML 250 ML IV ONE (10:53)
[2021-02-26] MEDS ORDERED: IRON SUCROSE 400 MG in SODIUM CHLORIDE 0.9% 250 ML IV ONE (11:15)
--- NOTE | 2021-02-26 11:59 | Anesthesiology Consultation ---
Date of Service February 26, 2021 Assessment & Plan Chart Review Chart Review: Acceptable Risk for Surgery Consults Requested none History Surgery Operation Date: 02/22/21 16:45 Proposed Procedures p Esophagogastroduodenoscopy Dr. Woody Mckay MD Operation Date: 02/26/21 16:30 Proposed Procedures p Colonoscopy Dr. Woody Mckay MD Height/Weight Height: 5 ft 3 in Weight: 91 kg Allergies Allergy/AdvReac Type Severity Reaction Status Date / Time Sulfa (Sulfonamide Allergy Unknown UNKNOWN Verified 02/21/21 19:11 Antibiotics) citalopram [From Celexa] Allergy Unknown Verified 02/21/21 19:11 metformin AdvReac Mild Dizziness Verified 02/21/21 19:11 albuterol AdvReac Unknown racing Verified 02/21/21 19:11 heart Medications Home Medications Medication Instructions Recorded Confirmed Last Taken aspirin 81 mg tablet,delayed 81 mg PO PM 07/24/19 02/21/21 03/18/20 release nitroglycerin 0.4 mg sublingual 0.4 mg SL Q5M PRN 07/26/19 02/21/21 Unknown tablet psyllium husk 3.4 gram/5.4 gram 1 tbs PO DAILY PRN 03/10/20 02/21/21 Unknown oral powder atorvastatin 20 mg PO HS 03/19/20 02/21/21 03/18/20 lorazepam 1 mg PO Q8 PRN 03/21/20 02/21/21 Unknown apixaban [Eliquis] 5 mg PO BID #30 tab 03/23/20 02/21/21 02/21/21 hydrocortisone 2.5 % topical cream 1 appln ID DIRECTED PRN #30 gm 03/30/20 02/21/21 Unknown with perineal applicator hydrochlorothiazide 25 mg tablet 25 mg PO DAILY 06/01/20 02/21/21 02/21/21 levothyroxine 25 mcg tablet 25 mcg PO QAM #30 tab 10/26/20 02/21/21 02/21/21 cholecalciferol (vitamin D3) 25 2,000 unit PO QAM cap 01/04/21 02/21/21 02/21/21 mcg (1,000 unit) capsule famotidine 20 mg tablet 20 mg PO DAILY #30 tab 01/04/21 02/21/2102/21/21 metoprolol succinate 25 mg 25 mg PO QPM tab 01/04/21 02/21/21 Unknown tablet,extended release 24 hr multivitamin 1 tab PO QAM tab 01/04/21 02/21/21 02/21/21 pantoprazole 40 mg tablet,delayed 40 mg PO DAILY #30 tab 01/04/21 02/21/21 02/21/21 release sertraline 100 mg tablet 100 mg PO QAM tab 01/04/21 02/21/21 02/21/21 blood sugar diagnostic #100 ea 01/08/21 02/21/21 Unknown trazodone 50 mg tablet 50 mg PO QPM #30 tab 01/29/21 02/21/21 Unknown ferrous sulfate 325 mg (65 mg 325 mg PO BID #60 tab 02/19/21 02/21/21 02/21/21 iron) tablet Active Medications Generic Name Dose Route Start Last Admin Trade Name Freq PRN Reason Stop Dose Admin Acetaminophen 650 mg 02/21/21 23:10 02/23/21 14:00 Acetaminophen 325 Mg Tab PO 03/23/21 23:09 650 mg Q4H PRN Administration Pain or Fever Atorvastatin Calcium 20 mg 02/22/21 21:00 02/25/21 20:43 Atorvastatin 20 Mg Tab PO 03/24/21 20:59 20 mg HS XANDER Administration Ferrous Sulfate 325 mg 02/22/21 09:00 02/25/21 20:43 Ferrous Sulfate 325 Mg Tab PO 03/24/21 08:59 325 mg BID XANDER Administration Hydrochlorothiazide 25 mg 02/22/21 09:00 02/25/21 08:03 Hydrochlorothiazide 25 Mg Tab PO 03/24/21 08:59 25 mg DAILY XANDER Administration Iron Sucrose 400 mg/ Sodium 270 mls @ 108 mls/hr 02/26/21 11:15 02/26/21 11:06 Chloride IV 02/26/21 13:44 108 mls/hr NOW ONE Administration Levothyroxine Sodium 25 mcg 02/22/21 06:30 02/26/21 05:58 Levothyroxine Sodium 25 Mcg Tablet PO 03/24/21 06:29 Not Given DAILYBB XANDER Metoprolol Succinate 25 mg 02/22/21 21:00 02/25/21 20:04 Metoprolol Succ 25mg Ext Rel Tab PO 03/24/21 20:59 Not Given QPM XANDER Pantoprazole Sodium 40 mg 02/24/21 09:00 02/25/21 08:02 Pantoprazole 40 Mg Tab PO 03/26/21 08:59 40 mg QAM XANEDR Administration Sertraline HCl 100 mg 02/22/21 09:00 02/25/21 08:03 Sertraline Hcl 100 Mg Tablet PO 03/24/21 08:59 100 mg QAM XANDER Administration Trazodone HCl 50 mg 02/22/21 21:00 02/25/21 20:43 Trazodone Hcl 50 Mg Tab PO 03/24/21 20:59 50 mg QPM XANDER Administration Vitamin D 2,000 units 02/22/21 09:00 02/25/21 08:03 Cholecalciferol 1,000 Units 25 Mcg Tab PO 03/24/21 08:59 2,000 units QAM XANDER Administration NPO Date Last Intake of Fluids: 02/26/21 Time Last Intake of Fluids: 23:30 Last Intake of Fluids Comment: SIP OF WATER WITH PILLS Date Last Intake of Solids: 02/24/21 Time Last Intake of Solids: 12:00 Past Medical History Medical History Anemia Concussion Cough with sputum GERD (gastroesophageal reflux disease) Hemorrhoids History of coronary artery disease Hyperlipidemia Hypertension Hypothyroidism Infected lesion in nose Iron deficiency anemia Left bundle branch block Nasal congestion INEZ (obstructive sleep apnea) Past Family History Family History Father Hypertension Heart disease Mother Stroke Other Breast cancer Myocardial infarction No family history of adverse response to anesthesia No family history of bleeding disorder Denies family history of Ovarian cancer Prostate cancer Colorectal cancer Past Surgical History Surgical History H/O cardiac catheterization History of back surgery History of bilateral oophorectomy History of hernia surgery Hx of hysterectomy Social History Smoking Status: Never smoker Do You Dip or Chew Tobacco: No Hx Alcohol Use: Yes Alcohol type: wine alcohol intake frequency: holidays/special occasions only Hx Substance Use: No Physical Exam Vital Signs Last Vital Signs Temp 36.2 C L 02/26/21 11:42 Pulse 55 L 02/26/21 11:42 Resp 20 02/26/21 11:42 BP 151/67 H 02/26/21 11:42 Pulse Ox 98 02/26/21 11:42 Testing Laboratory Results 02/26/21 06:07 02/26/21 06:07 PT 10.3 Seconds (9.0-12.0) 02/21/21 18:42 INR 1.0 (0.9-1.1) 02/21/21 18:42 Blood Type A Positive 02/21/21 18:42 Antibody Screen NEGATIVE 02/21/21 18:42
[2021-02-26] MEDS ORDERED: LIDOCAINE HCL 2% 2 ML VIAL/AMP(20MG/ML) INFIL ONE (12:44)
[2021-02-26] MEDS ORDERED: PROPOFOL IV EMULSION 10 MG/ML 20 ML VIAL IV ONE ×2 (12:44→12:51)
--- NOTE | 2021-02-26 13:18 | GI REPORT ---
Patient Name: Ángel Kim Procedure Date: 02/26/2021 12:45 PM Date of : 1950 Admit Type: Inpatient Age: 70 Gender: Female Attending MD: Pablo Mckay MD Procedure: Colonoscopy Providers: Pablo Mckay MD Referring MD: Pablo Mckay MD Indications: Unexplained iron deficiency anemia Medicines: Monitored Anesthesia Care Complications: No immediate complications. Estimated blood loss: None. Estimated Blood Loss: Estimated blood loss: none. Procedure: Pre-Anesthesia Assessment: - Prior Anticoagulants: The patient has taken no previous anticoagulant or antiplatelet agents. - ASA Grade Assessment: III - A patient with severe systemic disease. After I obtained informed consent, the scope was passed under direct vision. Throughout the procedure, the patient's blood pressure, pulse, and oxygen saturations were monitored continuously. The scope was introduced through the anus and advanced to the cecum, identified by appendiceal orifice and ileocecal valve. The colonoscopy was performed without difficulty. The patient tolerated the procedure well. The quality of the bowel preparation was fair. Findings: A 3 mm polyp was found in the cecum. The polyp was sessile. The polyp was removed with a cold biopsy forceps. Resection and retrieval were complete. Estimated blood loss: none. A few small-mouthed diverticula were found in the sigmoid colon. Prolapsed and inflamed external and internal hemorrhoids were found during retroflexion and during perianal exam. The hemorrhoids were large. No evidence of active bleeding nor old blood throughout exam. Impression: - Preparation of the colon was fair. - One 3 mm polyp in the cecum, removed with a cold biopsy forceps. Resected and retrieved. - Diverticulosis in the sigmoid colon. - Prolapsed external and internal hemorrhoids. Recommendation: - Return patient to [facility] for [facility] care. - Advance diet as tolerated today. - Await pathology results. -start anusol suppositories BID for 2 weeks -colorectal surgery evaluation of hemorrhoids and rectal prolapse as an outpatient Pablo Mckay MD 02/26/2021 1:18:33 PM This report has been signed electronically. Note Initiated On: 02/26/2021 12:45 PM Number of Addenda: 0 I attest to the content of the Intraoperative Record and orders documented therein, exceptions below {[id number]}
--- NOTE | 2021-02-26 13:46 | Anesthesiology Progress Note ---
Date of Service February 26, 2021 Anesthesia Post Procedure Vital Signs Vital Signs: Temp Pulse Pulse Resp BP Pulse Ox 02/26/21 13:26 55 L 16 136/51 L 95 02/26/21 13:11 69 16 107/43 L 95 02/26/21 11:42 36.2 C L 55 L 20 151/67 H 98 02/26/21 07:30 36.5 C 52 L 16 117/67 95 02/25/21 22:38 36.4 C L 55 L 16 160/74 H 99 Pain Intensity Posterior Head: Pain Intensity: 3 Abdomen: Pain Intensity: 3 Transfer of Care Handoff Completed per policy Notes Mental Status: alert / awake / arousable and participated in evaluation Patient Amnestic to Procedure: Yes Nausea / Vomiting: adequately controlled Pain: adequately controlled Airway Patency, RR, SpO2: stable & adequate BP & HR: stable & adequate Hydration State: stable & adequate Anesthetic Complications: no major complications apparent
[2021-02-26] MEDS: FERROUS SULFATE 325 MG TAB PO SCH (15:01)
[2021-02-26] MEDS: hydroCHLOROthiazide 25 MG TAB PO SCH (15:01)
[2021-02-26] MEDS: SERTRALINE HCL 100 MG TABLET PO SCH (15:01)
[2021-02-26] MEDS: CHOLECALCIFEROL 1,000 UNITS 25 MCG TAB PO SCH (15:02)
[2021-02-26] MEDS: PANTOprazole 40 MG TAB PO SCH (15:02)
--- NOTE | 2021-02-26 15:58 | Discharge Summary ---
Date of Service February 26, 2021 Admission HPI Per Admitting Provider Ángel Kim is here for low hemoglobin and fatigue. Her symptoms started on Friday (02/16) with fatigue and shortness of breath. She denies any black, bloody or tarry stool. She saw her screener and blender Dr. Barajas for pulmonary nodules and based on her symptoms he ordered blood tests including a CBC. She was found to have microcytic anemia (hgb 7.3) at this time. She was referred to hematology and has an appointment with Dr. Kiran scheduled for next week. She saw her PCP and was started on iron tabs, and continued on Eliquis and directed to talk with her [employer] Dr. Webster. She was instructed by Cardiology to stop her Eliquis if she had GI bleeding. She was told by her primary doctor that if she felt worse to go to the ER. Today she was feeling lightheaded, dizzy and fatigued. Her shortness of breath had progressed to at rest rather than with exertion. GI appointment March 22 for screening colonoscopy with Dr. Young. She has had colonoscopy when she was 50 and again at age 60 with no polyps or abnormalities found. ED course: K centra not given since her hemoglobin along with her vital signs IVF at 125/h PPI drip Zofran for nausea Principal Diagnosis Iron deficiency anemia possibly due to slow bleed from gastritis and/or hemorrhoids Discharge Exam Constitutional WD/WN, vitals as above Eyes EOM intact bilaterally; no conjunctival abnormality ENMT external ear and nose normal, oropharynx normal Neck trachea midline, no thyromegaly normal visual inspection Respiratory normal respiratory effort, lungs clear to auscultation no respiratory distress Cardiovascular RRR, no murmur, no edema Gastrointestinal (Abdomen) Inspection/Auscultation: abdomen normal to inspection; abdomen not distended Musculoskeletal no cyanosis or clubbing, extremities motor strength 5/5 Skin no rashes, warm and dry Neurologic moves all extremities and awake Psychiatric Orientation: alert, oriented to person and cooperative Discharge Data Allergies Allergy/AdvReac Type Severity Reaction Status Date / Time Sulfa (Sulfonamide Allergy Unknown UNKNOWN Verified 02/21/21 19:11 Antibiotics) citalopram [From Celexa] Allergy Unknown Verified 02/21/21 19:11 metformin AdvReac Mild Dizziness Verified 02/21/21 19:11 albuterol AdvReac Unknown racing Verified 02/21/21 19:11 heart Consultations 02/21/21 19:33 ED Decision to Admit Stat 02/21/21 23:10 Consult Gastroenterology Routine Procedures Performed Operation Date: 02/22/21 16:45 Actual Procedures p EGD Biopsy Cytology(Not Applicable) - Pablo Mckay MD Operation Date: 02/26/21 16:30 Actual Procedures p Colonoscopy Polypectomy - Pablo Mckay MD Ordered Studies 02/21/21 20:49 CT abd pelvis wo con Urgent Hospital Course (1) Iron deficiency anemia: Microcytic anemia. Hgb was 7.5 on admission. EGD on 02/22 showed gastritis, but no PUD. - Up to 7.9 after 1 unit PRBCs, but has been increasing with iron sucrose 300 mg on 02/23. Given a second dose of IV iron on 02/26. - Hgb up to 8.8 on 02/25 and stable on 02/27 - Colonoscopy on 02/26 showed significant hemorrhoidal disease. - Continue PPI PO daily x 1 month. - Hemorrhoid suppository x 2 weeks. Follow up with colorectal surgery. Numbers given in discharge packet. (2) Atrial fibrillation with rapid ventricular response: History of. 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 Chads-Vasc is 3 (age, female, HTN), giving her a 3.2% risk of CVA/TIA/embolism per year. - Holding Eliquis for now given concern for GIB - Currently bradycardic in 50-60 range with beta-ludy - Is going to follow up with cardiology re: Holter monitor to see how much afib burden she has. Discussed with patient. She prefers to hold anticoagulation until next week when she sees cardiology. She thinks it has been nearly a year since she was in afib. Given her relatively low daily risk of CVA/TIA/embolism, I think holding for 1 week has less risk than restarting her AC and possibly causing more bleeding. (3) Hypertension: BP stable today at 150/60. - Continue metoprolol for afib - Held HCTZ in preparation for colonoscopy. Resume on discharge. (4) Depression with anxiety: No issues presently. - Continue sertraline and Lorazepam PRN (5) Hypothyroidism: TSH was 2.8 in 03/2020. No signs/symptoms of hypo-/hyperthyroidism. Rechecked while inpatient and it was 2.7. - Continue home Synthroid 25 mcg (6) CAD in hopi artery: Mild, non-obstructive mid-LAD lesions (25%) seen on [facility] in [place] in 09/2011. - Holding aspirin for now due to possible GI bleed -> Approval to restart it by GI on discharge. - Continued statin (7) Diabetes mellitus: A1c was 6.4% in 12/2020, meaning she is pre-diabetic, rather than diabetic. - Outpatient follow-up (8) Insomnia: - Continue trazodone (9) INEZ (obstructive sleep apnea): - CPAP HS (10) DVT prophylaxis: SCDs - Holding heparin products and home Eliquis until colonoscopy done Total Time Total Time Spent Total Time Spent (In Minutes): 35 Discharge Plan Discharge Items Patient Disposition: Home - Self-Care Reason For Visit: ANEMIA Discharge Diagnosis: Anemia Activity: Resume your previous activity Non-emergency contact: Primary Care Provider and Surgeon Call non-emergency contact if: your symptoms worsen Follow-up/Referrals: Jeanine Reyes CRNP [Primary Care Provider] - 03/01/21 11:30 am (PT IS SCHED 03/01/21 @11:[address] CESPEDES ) Diet: Heart Healthy Addtl Attending Provider Instructions: Ms. Kim, You were admitted to the hospital with low blood counts that were caused by low iron levels. We have given you some blood and some IV iron as well. Your hemoglobin counts are coming up slowly, and we think they will continue to climb with the extra iron you got today. You had an EGD and a colonoscopy that both were free of any acute signs of bleeding. The EGD on February 22 showed some mild stomach irritation (called gastritis), and we recommend you continue your acid blocking medication for that. The colonoscopy today (February 26) showed fairly severe internal and external hemorrhoids. Given the significance, this might have caused a slow, microscopic bleed that has slowly lowered your iron. The GI doctor recommended you use a hemorrhoid suppository for the next 2 weeks and follow up with a colorectal surgeon. [facility] sends a colorectal surgeon to [place] once a week, and I would encourage you to follow up with them by calling [phone]. [facility] also has offices near [place] and can be reached at [phone]. Please see your patternmaker helper this week or next to discuss whether you continue to need anticoagulation. You may be eligible for a heart monitor to see if you are still in atrial fibrillation at all. For now, as we discussed, the risk of a stroke in the next week while you wait to see your PCP is very small, and we agreed you could hold your anticoagulation for now. Pending Studies at Discharge: No Stand-Alone Forms: [facility], Smoking Cessation Medications and DC Order Prescriptions: New hydrocortisone acetate 30 mg suppository 30 mg UT BID Qty: 36 RF: 0 Continued levothyroxine 25 mcg tablet 25 mcg PO QAM Qty: 30 RF: 11 (DME) ImmuMetrixuch Ultra Blue Test Strip Strip See Rx Instructions .ROUTE .MEDSUPPLY Qty: 100 RF: 5 trazodone 50 mg tablet 50 mg PO QPM Qty: 30 RF: 11 aspirin 81 mg tablet,delayed release (DR/EC) 81 mg PO PM RF: 0 nitroglycerin 0.4 mg tablet, sublingual 0.4 mg SL Q5M PRN (Reason: Chest Pain) RF: 0 Metamucil 3.4 gram/5.4 gram powder 1 tbs PO DAILY PRN (Reason: Constipation) RF: 0 cholecalciferol (vitamin D3) 25 mcg (1,000 unit) capsule 2,000 unit PO QAM RF: 0 multivitamin Tablet 1 tab PO QAM RF: 0 hydrochlorothiazide 25 mg tablet 25 mg PO DAILY RF: 0 ferrous sulfate 325 mg (65 mg iron) tablet 325 mg PO BID Qty: 60 RF: 3 metoprolol succinate 25 mg tablet extended release 24 hr 25 mg PO QPM RF: 0 sertraline 100 mg tablet 100 mg PO QAM RF: 0 pantoprazole 40 mg tablet,delayed release (DR/EC) 40 mg PO DAILY Qty: 30 RF: 5 famotidine 20 mg tablet 20 mg PO DAILY Qty: 30 RF: 5 hydrocortisone [Proctosol HC] 2.5 % cream with perineal applicator 1 appln UT DIRECTED PRN (Reason: Itching) Qty: 30 RF: 4 atorvastatin 20 mg tablet 20 mg PO HS RF: 0 lorazepam 1 mg Tablet 1 mg PO Q8 PRN (Reason: Anxiety) RF: 0 Discontinued Eliquis 5 mg tablet 5 mg PO BID Qty: 30 RF: 0 Discharge Orders: Discharge Order (Routine); Ordered 02/26/21 Ordered By: Jean Peterson Admission Data Admit Date/Time: 02/21/21 22:23 Attending Provider: Jean Peterson Admit Provider: Jevon Noble Primary Care Provider: Jeanine Reyes Other Providers: Pablo Mckay ; Jean Peterson Other Interventions: Discharge Summary Assessment (RN) Last Done: 02/26/21 14:46 Coding Level of Care Code D/C Day Management >30 mins Diagnoses Iron deficiency anemia D50.9 Atrial fibrillation with rapid ventricular response I48.91 Hypertension I10 Depression with anxiety F41.8 Hypothyroidism E03.9 CAD in hopi artery I25.10 Diabetes mellitus E11.9 Insomnia G47.00 INEZ (obstructive sleep apnea) G47.33 DVT prophylaxis Z29.9
== END 2021-02-26 16:30 | disposition home or self-care (01) | DRG 378 ==
LOC: ED 18:09 → SUATTDRO 22:23 → EDINP 22:23 → 3N 02-22 13:45

== ENCOUNTER 2024-02-26 09:20 | Inpatient (IN) ==
[2024-02-26 09:59] LABS: Basophils # (auto) 0.05 K/uL (0.00-0.20); Basophils % (auto) 0.5 %; Eosinophils # (auto) 0.06 K/uL (0.00-0.50); Eosinophils % (auto) 0.6 %; Hematocrit (blood only) 41.8 % (37.0-47.0); Hemoglobin 13.9 g/dl (12.0-16.0); Immature Granulocytes # (auto) 0.13 K/uL (0.01-0.20); Immature Granulocytes % (auto) 1.2 %; Lymphocytes # (auto) 4.25 K/uL (1.20-3.40); Lymphocytes % (auto) 39.3 %; Mean Corpuscular Hemoglobin 31.8 pg (25.0-34.0); Mean Corpuscular Hgb Conc 33.3 g/dL (32.0-36.0); Mean Corpuscular Volume 95.7 fL (80.0-100.0); Mean Platelet Volume 11.8 fL (9.4-12.4); Monocytes # (auto) 0.73 K/uL (0.11-0.59); Monocytes % (auto) 6.8 %; Neutrophils # (auto) 5.59 K/uL (1.40-6.50); Neutrophils % (auto) 51.6 %; Nucleated RBC # (auto) 0.02 K/uL (0.00-0.12); Nucleated RBC % (auto) 0.2 %; Platelet Count 175 K/uL (130-400); RDW Coefficient of Variation 14.2 % (11.5-14.5); RDW Standard Deviation 50.1 fL (36.4-46.3); Red Blood Count 4.37 M/uL (4.20-5.40); White Blood Count 10.81 K/ul (4.8-10.8)
[2024-02-26 10:06] LABS: Partial Thromboplastin Ratio 0.9; Partial Thromboplastin Time 24 Seconds (21-31); Prothrombin Time 10.5 Seconds (9.0-12.0)
[2024-02-26 10:16] LABS: Albumin Globulin Ratio 1.6 (0.9-2); BUN Creatinine Ratio 27.8 (10-20); Bilirubin,Total 0.6 mg/dl (0.2-1.0); Calcium 9.2 mg/dl (8.6-10.3); Creatinine Clr Calc Pharmacy 69.4 ml/min; Est GFR (African American) 86.1 ml/min; Est GFR (Non-African American) 74.3 ml/min; Globulin 2.5 gm/dl (2.5-4.0); Total Protein 6.5 gm/dl (6.0-8.3)
[2024-02-26 10:21] LABS: Troponin I High Sensitivity 33.5 pg/ml (0-14)
--- NOTE | 2024-02-26 11:26 | XRay Report ---
SINGLE VIEW CHEST CLINICAL HISTORY: Atypical chest pain. FINDINGS: A PA chest radiograph is compared to study dated 03/30/2022 when correlated with chest CT sylwia ed 06/27/2023. A 2-lead cardiac pacemaker is unchanged in position and partially obscures the left uppe r chest. The heart is enlarged. The pulmonary vasculature is noncongested. Chronic interstitial thick ening is similar to previous. There is mild bibasilar scarring/atelectasis. The lungs and pleural spa hayley are otherwise clear. No pneumothorax is seen. The skeletal structures are osteopenic. The bony th orax is grossly intact. IMPRESSION: 1. Cardiomegaly and cardiac pacemaker without radiographic evidence of congestive failure. 2. No airspace consolidation or pleural effusion is identified. ACT 112: Negative or not required by law. Electronically signed by: Asif Bruce M.D. 02/26/2024 11:09 AM
[2024-02-26] MEDS: SODIUM CHLORIDE 0.9% 500 ML IV ONE (12:01)
[2024-02-26 12:11] LABS: Magnesium 1.8 mg/dl (1.7-2.4); Phosphorus 2.5 mg/dl (2.5-4.9)
[2024-02-26 12:27] LABS: Thyroid Stimulating Hormone 1.917 uIu/ml (0.300-4.500)
--- NOTE | 2024-02-26 13:42 | Emergency Department Note ---
Impression & Plan Atrial flutter with rapid ventricular response, Atrial fibrillation/flutter, Cardiac pacemaker in situ, Hypokalemia, Low magnesium level ED Provider Note NAME: KANE MOJICA AGE: 73 SEX: F : 1950 ARRIVES VIA: Walk-In INFORMANT: Patient ED PROVIDER(S): Renan Xiong MD CHIEF COMPLAINT: Palpitations, Referred. PLAN: Disposition: Admit MEDICAL DECISION MAKING: The patient is a pleasant 73-year-old woman with a past medical history of atrial fibrillation on Eliquis, history of tachybradycardia syndrome status post PPM, CAD, PMR, iron deficiency anemia, diabetes, GERD, left bundle branch block, hypothyroidism, hypertension, hyperlipidemia who presents to the emergency department via walk-in accompanied by her referred by the cardiology office for evaluation of palpitations with heart rate noted to be in the 160s since 2 AM last night. The patient reports that they had evaluated her pacemaker remotely and show that she was back in atrial fibrillation. The patient denies any fevers, chills, cough, congestion, GI or symptoms. Prior to symptom onset last night she had been doing well. She reports she was recently started on prednisone for a new diagnosis of PMR a couple of weeks ago. The patient denies any recent exertional chest pain. On evaluation the patient is no acute distress, afebrile with heart rate in the 100-120s and atrial flutter with variable AV block and vital signs otherwise stable. She appears euvolemic. EKG with suspected atrial flutter, 122 bpm, left bundle branch block, no sgarbossa criteria. Chest x-ray negative for acute cardiopulmonary process. Interrogation of the patient's pacemaker was performed and reviewed with [employer] senior qc technician and appears that the patient's parameters are not detecting the patient's atrial flutter and this may potentially be contributing the patient's symptoms. Appreciate [employer] senior qc technician assistance who reported that she will come to the ER to reprogram following consultation with cardiology. WBC 10.8 K, nonspecific. H/H and platelets within normal limits. Chemistry without metabolic acidosis. Potassium 3.0 with IV repletion initiated. Magnesium is 1.8, low normal and so IV magnesium also provided. High- sensitivity troponin initially 33 with delta 2-hour Hites to 0.49, nonspecific and likely related the patient's RVR. TSH within normal limits. Given the patient's ongoing RVR with elevated troponin in the setting of need for device adjustment patient does agree with plan for admission for further management. Patient was given 5 mg of IV Lopressor for additional rate control. Case was discussed with Peyton Sarmiento, with Dr. [facility] who will evaluate the patient for admission. Triage Nursing notes reviewed and agree them. Prior/external medical records reviewed Vital Signs: reviewed Differential diagnosis: Premature contractions, electrolyte abnormality, cardiac dysrhythmia, thyroid dysfunction, pulmonary embolism, infection, gastrointestinal, as well as other pathologies. ER treatment provided: See below. Diagnostics interpreted by me: ECG: Suspect atrial flutter, 122 bpm, left bundle branch block, no sgarbossa criteria. QTc 450, QRS 144. Cardiac Monitoring: An order for continuous cardiac monitoring was placed and demonstrated Suspect atrial flutter, 122 bpm, left bundle branch block. Laboratory studies: See below Imaging studies: See below Consultation(s): Peyton Sarmiento[facility] HPI: The patient is a pleasant 73-year-old woman with a past medical history of atrial fibrillation on Eliquis, history of tachybradycardia syndrome status post PPM, CAD, PMR, iron deficiency anemia, diabetes, GERD, left bundle branch block, hypothyroidism, hypertension, hyperlipidemia who presents to the emergency department via walk-in accompanied by her referred by the cardiology office for evaluation of palpitations with heart rate noted to be in the 160s since 2 AM last night. The patient reports that they had evaluated her pacemaker remotely and show that she was back in atrial fibrillation. The patient denies any fevers, chills, cough, congestion, GI or symptoms. Prior to symptom onset last night she had been doing well. She reports she was recently started on prednisone for a new diagnosis of PMR a couple of weeks ago. The patient denies any recent exertional chest pain. ROS: See above HPI for pertinent positives & negatives. A total of 10 systems reviewed and were otherwise negative. VITALS:See Below PHYSICAL EXAMINATION: GENERAL: Awake, alert, in no distress HENT: Normocephalic, atraumatic. Oropharynx unremarkable. EYES: Normal conjunctiva. Sclera non-icteric. NECK: Supple. No nuchal rigidity. FROM. No JVD. RESPIRATORY: Clear to auscultation. CARDIAC: Tachycardic rate, normal rhythm. Extremities warm and well perfused. Pulses equal. ABDOMEN: Soft, non-distended. No tenderness to palpation. No rebound or guarding. No masses. MUSCULOSKELETAL: Chest examination reveals no tenderness. The back is symmetrical on inspection without obvious abnormality. There is no CVA tenderness to palpation. No joint edema. LOWER EXTREMITIES: Calves are equal size bilaterally and non-tender. No edema. No discoloration. NEURO: Normal sensorium. No sensory or motor deficits noted. SKIN: No rash or jaundice noted. ED COURSE: Critical Care: I have personally spent greater than 35 minutes of critical care time in the direct management of this patient. This includes bedside care, interpretation of diagnostic studies, and testing, discussion with consultants, patient, and family members, and other required patient management activities. This 35 minutes is in excess of all separately billable procedures. Renan Xiong MD Past Med/Surg History Medical History Tachy-luis syndrome Depression CAD (coronary artery disease) PMR (polymyalgia rheumatica) Multiple pulmonary nodules determined by computed tomography of lung Obstructive sleep apnea (adult) (pediatric) GIB (gastrointestinal bleeding) Iron deficiency anemia Nasal congestion Anaplasmosis Infected lesion in nose Concussion Hyperlipidemia Hemorrhoids Hypothyroidism Hypertension History of coronary artery disease Left bundle branch block GERD (gastroesophageal reflux disease) Surgical History History of esophagogastroduodenoscopy (EGD) 02/22/21 Dr. Pablo Mckay S/P colonoscopy 02/26/21 Dr. Pablo Mckay History of bilateral oophorectomy History of hernia surgery History of back surgery Hx of hysterectomy H/O cardiac catheterization Family History Father Hypertension Heart disease Mother Stroke Other Breast cancer Myocardial infarction No family history of adverse response to anesthesia No family history of bleeding disorder Denies family history of Ovarian cancer Prostate cancer Colorectal cancer Social History Smoking Status: Never smoker Second Hand Exposure: No; Do You Dip or Chew Tobacco: No; Hx Alcohol Use: No Hx Substance Use: No Preferred Language: Martiniquais Communication Ability: Effective Manager Inspection Required: No Beliefs That Will Affect Care: None marital status: Current Living Situation: Spouse current occupational status: retired How many Children do You have: 3 Other Information That Helps Us Care for You: No Feels Safe at Home: Yes Safety Concerns: Feels Safe At This Time caffeine: Yes Dental Care, Regularly: Yes Physical Activity Frequency: 1-2 Times per Week Seatbelt Use: always Sunscreen Use: Yes Assistive Devices: CPAP Allergies Allergies Allergy/AdvReac Type Severity Reaction Status Date / Time citalopram [From Celexa] Allergy Unknown Unknown Verified 02/26/24 12:55 Sulfa (Sulfonamide Allergy Unknown UNKNOWN Verified 02/26/24 12:55 Antibiotics) albuterol AdvReac Intermediate racing Verified 02/26/24 12:55 heart Home Meds Home Medications Medication Instructions Recorded Confirmed nitroglycerin 0.4 mg sublingual 0.4 mg sublingual Q5M PRN Chest 07/26/19 02/26/24 tablet Pain psyllium husk 3.4 gram/5.4 gram 1 tbs PO DAILY PRN Constipation 03/10/20 02/26/24 oral powder (Metamucil) atorvastatin 20 mg tablet 20 mg PO HS 03/19/20 02/26/24 lorazepam 1 mg tablet 1 mg PO Q8H PRN Anxiety 03/21/20 02/26/24 hydrochlorothiazide 25 mg tablet 25 mg PO DAILY 06/01/20 02/26/24 cholecalciferol (vitamin D3) 25 2,000 unit PO QAM 01/04/21 02/26/24 mcg (1,000 unit) capsule multivitamin 1 tab PO QAM 01/04/21 02/26/24 apixaban 5 mg tablet (Eliquis) 5 mg PO BID 02/26/24 02/26/24 metformin 500 mg tablet,extended 500 mg PO QPM 02/26/24 02/26/24 release 24 hr metoprolol succinate 25 mg 25 mg PO QPM 02/26/24 02/26/24 tablet,extended release 24 hr potassium chloride 20 mEq 20 meq PO QAM 02/26/24 02/26/24 tablet,extended release(part/cryst) prednisone 20 mg tablet 40 mg PO BID 02/26/24 02/26/24 sodium chloride, sodium See Rx Instructions .Route .COMPLEX 02/26/24 02/26/24 bicarb-nasal rinse squeeze bottle with packet ([email or web address] Sinus Rinse Complete with packet) trazodone 50 mg tablet 25 mg PO QPM PRN Sleep 02/26/24 02/26/24 Previous Rx's Medication Instructions Recorded blood sugar diagnostic (OneTouch #100 ea 01/08/21 Ultra Blue Test Strip) levothyroxine 50 mcg tablet 50 mcg PO DAILY #30 tabs 04/04/22 sertraline 100 mg tablet 150 mg (1.5 x 100 mg) PO QAM #45 04/16/22 tabs Results & Data (ED) Vital Signs Vital Signs - 24 hr 02/26/24 09:22 02/26/24 09:22 02/26/24 12:02 Temperature 36.8 C Temperature Source Temporal Artery Scan Pulse Rate 121 H Pulse Rate [Right Finger] Pulse Rhythm [Right Finger] Pulse Strength [Right Finger] Respiratory Rate 20 Respiratory Effort / Characteristics Short of Breath Respiratory Depth Respiratory Pattern Blood Pressure 139/78 Blood Pressure [Right Arm] Blood Pressure Mean 98 Blood Pressure Mean [Right Arm] Blood Pressure Position [Right Arm] Pulse Oximetry 98 97 Oxygen Delivery Method Room Air Room Air Sepsis Recent Fever Within 48 Hours No Sepsis New/Unexplained Change in Mental Status N/A Sepsis Action Taken by Nursing No Action Required 02/26/24 12:02 02/26/24 13:07 02/26/24 13:55 Temperature 36.8 C Temperature Source Oral Pulse Rate 127 H 126 H Pulse Rate [Right Finger] 105 H Pulse Rhythm [Right Finger] Regular Pulse Strength [Right Finger] Normal Respiratory Rate 20 Respiratory Effort / Characteristics Non-Labored Spontaneous Respiratory Depth Normal Respiratory Pattern Regular Blood Pressure 120/81 Blood Pressure [Right Arm] 123/71 Blood Pressure Mean Blood Pressure Mean [Right Arm] 88 Blood Pressure Position [Right Arm] Semi-fowlers Pulse Oximetry 97 Oxygen Delivery Method Room Air Sepsis Recent Fever Within 48 Hours Sepsis New/Unexplained Change in Mental Status Sepsis Action Taken by Nursing Laboratory Data Attestation: I reviewed the patient's lab results. 02/26/24 16:03 02/26/24 20:56 Lab Results 02/26/24 02/26/24 Range/Units 09:32 12:36 WBC 10.81 H (4.8-10.8) K/ul RBC 4.37 (4.20-5.40) M/uL Hgb 13.9 (12.0-16.0) g/dl Hct 41.8 (37.0-47.0) % MCV 95.7 (80.0-100.0) fL MCH 31.8 (25.0-34.0) pg MCHC 33.3 (32.0-36.0) g/dL RDW Std Deviation 50.1 H (36.4-46.3) fL RDW Coeff of Vito 14.2 (11.5-14.5) % Plt Count 175 (130-400) K/uL MPV 11.8 (9.4-12.4) fL Immature Gran % (Auto) 1.2 % Neut % (Auto) 51.6 % Lymph % (Auto) 39.3 % [place] % (Auto) 6.8 % Eos % (Auto) 0.6 % Baso % (Auto) 0.5 % Neut # (Auto) 5.59 (1.40-6.50) K/uL Lymph # (Auto) 4.25 H (1.20-3.40) K/uL [place] # (Auto) 0.73 H (0.11-0.59) K/uL Eos # (Auto) 0.06 (0.00-0.50) K/uL Baso # (Auto) 0.05 (0.00-0.20) K/uL Immature Gran # (Auto) 0.13 (0.01-0.20) K/uL Absolute Nucleated RBC 0.02 (0.00-0.12) K/uL Nucleated RBC % (auto) 0.2 % PT 10.5 (9.0-12.0) Seconds INR 1.0 (0.9-1.1) APTT 24 (21-31) Seconds PTT Ratio 0.9 Sodium 142 (136-145) mmol/L Potassium 3.0 L (3.5-5.1) mmol/L Chloride 105 (98-107) mmol/L Carbon Dioxide 29 (21-32) mmol/L Anion Gap 8 (3-11) BUN 22 (6-23) mg/dl Creatinine 0.79 (0.6-1.2) mg/dl Est Cr Clr Drug Dosing 69.4 ml/min Est GFR ( Amer) 86.1 ml/min Est GFR (Non-Af Amer) 74.3 ml/min BUN/Creatinine Ratio 27.8 H (10-20) Glucose 122 H (70-99(Fasting)) mg/dl Calcium 9.2 (8.6-10.3) mg/dl Phosphorus 2.5 (2.5-4.9) mg/dl Magnesium 1.8 (1.7-2.4) mg/dl Total Bilirubin 0.6 (0.2-1.0) mg/dl AST 12 L (13-39) U/L ALT 16 (7-52) U/L Alkaline Phosphatase 43 (34-104) U/L Troponin I High Sens 33.5 H 44.8 H D (0-14) pg/ml Total Protein 6.5 (6.0-8.3) gm/dl Albumin 4.0 (3.4-5.0) gm/dl Globulin 2.5 (2.5-4.0) gm/dl Albumin/Globulin Ratio 1.6 (0.9-2) TSH 1.917 (0.300-4.500) uIu/ml Administered Medications Atorvastatin Calcium (Atorvastatin 20 Mg Tab) 20 mg PO HS [facility] Stop: 03/27/24 20:59 Last Admin: 02/26/24 21:19 Dose: 20 mg Documented By: DALE Insulin Aspart (Insulin Aspart Per Unit Charge) 0 units SC ACHS [facility] Stop: 03/27/24 16:29 Last Admin: 02/26/24 21:18 Dose: 1 units Documented By: DALE Co-signed By: DIMITRI Admin: 02/26/24 17:26 Dose: 2 units Documented By: KAITY Co-signed By: TAHIR Levothyroxine Sodium (Levothyroxine Sodium 50 Mcg Tablet) 50 mcg PO DAILYBB [facility] Stop: 03/27/24 15:59 Last Admin: 02/26/24 16:45 Dose: 50 mcg Documented By: AM Metoprolol Tartrate (Metoprolol Tartrate 25 Mg Tab) 25 mg PO Q8H [facility] Stop: 03/27/24 15:59 Last Admin: 02/26/24 23:54 Dose: 25 mg Documented By: Admin: 02/26/24 16:44 Dose: 25 mg Documented By: AM Potassium Chloride (Potassium Chloride Crtab 20 Meq Tabcr) 40 meq PO HS [facility] Stop: 03/27/24 20:59 Last Admin: 02/26/24 21:19 Dose: 40 meq Documented By: DALE Sertraline HCl (Sertraline Hcl 50 Mg Tablet) 150 mg PO QAM [facility] Stop: 03/27/24 15:59 Last Admin: 02/26/24 16:43 Dose: 150 mg Documented By: AM Vitamin D (Cholecalciferol 25 Mcg (1000 Units) Tab) 25 mcg PO QAM [facility] Stop: 03/27/24 15:59 Last Admin: 02/26/24 16:43 Dose: 25 mcg Documented By: AM Discontinued Medications Apixaban (Apixaban 5 Mg Tablet) 5 mg PO ONCE ONE Stop: 02/26/24 15:16 Last Admin: 02/26/24 16:44 Dose: 5 mg Documented By: AM Apixaban (Apixaban 5 Mg Tablet) 5 mg PO TODAY@0000 ONE Stop: 02/27/24 00:01 Last Admin: 02/26/24 23:54 Dose: 5 mg Documented By: DALE Hydrochlorothiazide (Hydrochlorothiazide 25 Mg Tab) 25 mg PO DAILY [facility] Stop: 03/27/24 15:14 Last Admin: 02/26/24 16:09 Dose: Not Given Documented By: AM Sodium Chloride (Nss) 500 mls @ 999 mls/hr IV .Q31M ONE Stop: 02/26/24 11:45 Last Infusion: 02/26/24 16:01 Dose: Infused Documented By: Admin: 02/26/24 12:01 Dose: 999 mls/hr Documented By: ELVER Magnesium Sulfate/Dextrose (Magnesium Sulfate / D5w) 1 gm in 100 mls @ 100 mls/hr IV NOW STA Stop: 02/26/24 14:19 Last Infusion: 02/26/24 16:01 Dose: Infused Documented By: Admin: 02/26/24 13:54 Dose: 100 mls/hr Documented By: ARNOLDW Potassium Chloride (K Oniel / Wtr) 10 meq in 100 mls @ 100 mls/hr IV Q1H [facility]ANDER Stop: 02/26/24 15:29 Last Infusion: 02/26/24 16:01 Dose: Infused Documented By: Admin: 02/26/24 15:24 Dose: Not Given Documented By: Admin: 02/26/24 13:54 Dose: 100 mls/hr Documented By: CAW Metoprolol Tartrate (Metoprolol Tartrate 1 Mg/Ml Vial) 5 mg IV NOW STA Stop: 02/26/24 13:24 Last Admin: 02/26/24 13:55 Dose: 5 mg Documented By: CAW Potassium Chloride (Potassium Chloride Crtab 20 Meq Tabcr) 40 meq PO NOW STA Stop: 02/26/24 13:21 Last Admin: 02/26/24 13:54 Dose: 40 meq Documented By: CAW Prednisone (Prednisone 20 Mg Tab) 40 mg PO NOW ONE Stop: 02/26/24 15:46 Last Admin: 02/26/24 16:44 Dose: 40 mg Documented By: AM Imaging Data Radiologist's Impression: Chest X-Ray 02/26/24 09:27 SINGLE VIEW CHEST CLINICAL HISTORY: Atypical chest pain. FINDINGS: A PA chest radiograph is compared to study dated 03/30/2022 when correlated with chest CT dated 06/27/2023. A 2-lead cardiac pacemaker is unchanged in position and partially obscures the left upper chest. The heart is enlarged. The pulmonary vasculature is noncongested. Chronic interstitial thickening is similar to previous. There is mild bibasilar scarring/atelectasis. The lungs and pleural spaces are otherwise clear. No pneumothorax is seen. The skeletal structures are osteopenic. The bony thorax is grossly intact. IMPRESSION: 1. Cardiomegaly and cardiac pacemaker without radiographic evidence of congestive failure. 2. No airspace consolidation or pleural effusion is identified. ACT 112: Negative or not required by law. Electronically signed by: Asif Bruce M.D. 02/26/2024 11:09 AM Discharge Plan Visit Data Chief Complaint: Cardiac Assessment Stated Complaint: AFIB, REF BY DOCTOR ED Provider: Renan Xiong Discharge Problem: Atrial flutter with rapid ventricular response, Atrial fibrillation/flutter, Cardiac pacemaker in situ, Hypokalemia, Low magnesium level Patient Disposition: Admitted As Inpatient Discharge Instructions Interventions: ED Discharge Assessment Last Done: 02/26/24 15:24
[2024-02-26] MEDS: POTASSIUM CHLORIDE / WTR 10 MEQ/100 ML PLCT IV SCH (13:54)
[2024-02-26] MEDS: MAGNESIUM SULFATE / D5W 1 GM/100 ML BAG IV STA (13:54)
[2024-02-26] MEDS: POTASSIUM CHLORIDE CRTAB 20 MEQ TABCR PO STA (13:54)
[2024-02-26] MEDS: METOPROLOL TARTRATE 1 MG/ML VIAL IV STA (13:55)
[2024-02-26] MEDS ORDERED: ONDANSETRON INJ 2 MG/ML 2 ML VIAL IV PRN (14:11)
[2024-02-26] MEDS ORDERED: POLYETHYLENE (MIRALAX) 17 GM PACK PO PRN (14:11)
[2024-02-26] MEDS ORDERED: ALUMINUM/MAGNESIUM SUSP 30 ML UDC PO PRN (14:11)
[2024-02-26] MEDS ORDERED: MAGNESIUM HYDROXIDE SUSP 30 ML UDC PO PRN (14:11)
[2024-02-26] MEDS ORDERED: ACETAMINOPHEN 325 MG TAB PO PRN (14:11)
--- NOTE | 2024-02-26 14:20 | History & Physical Report ---
Date of Service February 26, 2024 Assessment & Plan (1) Atrial fibrillation with rapid ventricular response: (2) Hypertension: (3) Hypothyroidism: (4) Hyperlipidemia: (5) Left bundle branch block: (6) CAD in [place] artery: (7) Hypokalemia: (8) PMR (polymyalgia rheumatica): (9) CAD (coronary artery disease): (10) Depression: (11) Tachy-luis syndrome: (12) Cardiac pacemaker in situ: Plan 71 y/o F presents to the [facility] as recommended by her Mainframe Architect TRAVIS as she was noted to be in AF RVR. Pt has known AF and takes Eliquis; reporting compliance. She is prescribed metoprolol ER 25 mg and takes it every afternoon which she took last night and then took the additional dose as recommended this morning. Pacemaker that was inserted for tachybradycardia syndrome in October 2022. In the ED during pacemaker interrogation the pacemaker was unable to detect flutter. [employer] proceeded to come in and was at bedside and after discussion with cardiology agreed to turn on atrial pacing therapies. She was just recently diagnosed with PMR and has not on high-dose p.o. Prednisone for the last 6 weeks. She is currently taking 40 mg p.o. twice daily with a dose reduction to 35 mg starting 02/26. Last ECHO 03/15/2021 LV wall thickness mildly concentric, septal wall motion abnormal consistent with LBBB, grade 1 diastolic dysfunction, mild MR/TR In the ED she was given Metoprolol 5 mg IV once. Her HR was 150's initially. Troponin initially 33.5--> 44.8 suspect ischemic demand related to RVR. Patient will be admitted for further evaluation management of her atrial flutter. [employer] to make atrial pacing therapy adjustments on settings at bedside. Will administer metoprolol tartrate 25 mg p.o. 3 times daily, replace potassium, trend troponin, formal cardiology consult placed, monitor sugars due to increased prednisone intake for new diagnosis of PMR. If no improvement with atrial pacing therapies consider diltiazem. Atrial flutterRVR: Acute [id number] score 5; female, age, CAD history, HTN, and DM Takes Metoprolol 25 mg ER QPM. She took her dose last night and was advised by Cards to take a dose this AM Metoprolol 5 mg IV once given in ED Metoprolol Tartrate 25 mg PO TID ordered Troponin initially 33.5--> 44.8 suspect ischemic demand related to RVR; will trend Takes Eliquis BID; did not take this AM. Will give one dose now and evening dose at 0000; restarting normal timing schedule in AM on 02/26 [employer] to activate atrial pacing settings; if no improvement later today, consider Diltiazem Pacer interrogation was not revealing flutter [employer] to make atrial pacing adjustments at bedside Formal cards consult placed and appreciate their assistance Ok for diet today; heart healthy NPO MN Hypokalemia: Acute Serum K+ 3.0; replaced with 40 PO and K+ rider x1 Recheck at 2100 PMR: Newly diagnosed generalized joint pain Follows with Rheumatology Started on Prednisone 40 mg PO daily; taper tomorrow down to 35 mg daily Taper dose pack to be completed 04/06 per [facility] E[facility] and with pt Monitor sugars as outlined below. TBS: Status post dual-lead pacemaker: Chronic Placed October 2022 Pacer interrogation was not revealing flutter [employer] to make atrial pacing adjustments at bedside CAD: Chronic Nonobstructive medically managed by cath 10/2006 Mid LAD 30%; repeat cath 09/2011 25% mid LAD stenosis Known LBBB INEZ: Chronic Wears CPAP nightly Will bring CPAP from home Order placed for patient to be able to use CPAP DM2: Chronic Takes Metformin;hold while inpatient Place on SSI; higher stress dosing due to steroids with PMR Check A1C in AM HTN: Chronic Takes HCTZ; continue HLD: Chronic Takes atorvastatin; continue Hypothyroidism: Chronic Takes levothyroxine; continue Last TSH 01/06/2024 3.42 Disposition: PCP: Dr. Barros Code Status: Full Code VTE Prophylaxis: On Eliquis I spent a total of 82 minutes coordinating, documenting, and providing care for this patient excluding time spent in the performance of separately billed services. All of the aforementioned completed while collaborating with the assigned attending physician for a full treatment plan. Please see their addendum for further details. History of Present Illness Chief Complaint: AF RVR Primary Care Provider: Dylan Barros MD 71 year old female that presents to the [facility] as recommended by her Mainframe Architect TRAVIS as she was noted to be in AF RVR. Pt has known AF and takes Eliquis; reporting compliance. She said that last night she went to bed as normal and woke up around 2 AM with feeling of her heart pounding and racing in her chest. She attempted to go back to sleep without success. When she woke this morning she continued to have palpitation and called over to [facility] cardiology who recommended that she take an additional dose of metoprolol. She is prescribed metoprolol ER 25 mg and takes it every afternoon which she took last night and then took the additional dose as recommended this morning. Her symptoms persisted including dizziness and lightheadedness so she called the cardiology office who recommended that she proceed to the ER. She has a Pacemaker that was inserted for tachybradycardia syndrome in October 2022. In the ED during pacemaker interrogation the pacemaker was unable to detect flutter. [employer] proceeded to come in and was at bedside and after discussion with cardiology agreed to turn on atrial pacing therapies. She was just recently diagnosed with PMR and has not on high-dose p.o. Prednisone for the last 6 weeks. She is currently taking 40 mg p.o. twice daily with a dose reduction to 35 mg starting 02/26 Past medical history includes mild non-obstructive CAD, manage medically which is first identified in 2006 with episodes of exertional chest pain. She has a known LBBB and had a cardiac cath in [place] October with 30% mid LAD stenosis, HTN, CAD, HLD, GI bleed, INEZ, hypothyroidism, ath-fstwbtj-wajjjeywh diabetes, and depress Last ECHO 03/15/2021 LV wall thickness mildly concentric, septal wall motion abnormal consistent with LBBB, grade 1 diastolic dysfunction, mild MR/TR In the ED she was given 504 occasions or initially 33.5 increased to 44.8 suspect ischemic demand related to RVR. Patient denies headache, current dizziness, chest pain, lower extremity swelling, nausea, vomiting, diarrhea, abdominal pain or tenderness, dysuria, hematochezia, recent falls or trauma. Patient will be admitted for further evaluation management of her atrial flutter. [employer] to make atrial pacing therapy adjustments on settings at bedside. Will administer metoprolol tartrate 25 mg p.o. 3 times daily, replace potassium, trend troponin, formal cardiology consult placed, monitor sugars due to increased prednisone intake for new diagnosis of PMR. If no improvement with atrial pacing therapies consider diltiazem. Allergies Allergy/AdvReac Type Severity Reaction Status Date / Time citalopram [From Celexa] Allergy Unknown Unknown Verified 02/26/24 12:55 Sulfa (Sulfonamide Allergy Unknown UNKNOWN Verified 02/26/24 12:55 Antibiotics) albuterol AdvReac Intermediate racing Verified 02/26/24 12:55 heart Home Medications Medication Instructions Recorded Confirmed Type nitroglycerin 0.4 mg sublingual 0.4 mg sublingual Q5M PRN Chest 07/26/1902/25 History tablet Pain psyllium husk 3.4 gram/5.4 gram 1 tbs PO DAILY PRN Constipation 03/10/20 02/26/24 History oral powder (Metamucil) atorvastatin 20 mg tablet 20 mg PO HS 03/19/20 02/26/24 History lorazepam 1 mg tablet 1 mg PO Q8H PRN Anxiety 03/21/20 02/26/24 History hydrochlorothiazide 25 mg tablet 25 mg PO DAILY 06/01/20 02/26/24 History cholecalciferol (vitamin D3) 25 2,000 unit PO QAM 01/04/21 02/26/24 History mcg (1,000 unit) capsule multivitamin 1 tab PO QAM 01/04/21 02/26/24 History blood sugar diagnostic (OneTouch #100 ea 01/08/21 02/26/24 Rx Ultra Blue Test Strip) levothyroxine 50 mcg tablet 50 mcg PO DAILY #30 tabs 04/04/22 02/26/24 Rx sertraline 100 mg tablet 150 mg (1.5 x 100 mg) PO QAM #45 04/16/22 02/26/24 Rx tabs apixaban 5 mg tablet (Eliquis) 5 mg PO BID 02/26/24 02/26/24 History metformin 500 mg tablet,extended 500 mg PO QPM 02/26/24 02/26/24 History release 24 hr metoprolol succinate 25 mg 25 mg PO QPM 02/26/24 02/26/24 History tablet,extended release 24 hr potassium chloride 20 mEq 20 meq PO QAM 02/26/24 02/26/24 History tablet,extended release(part/cryst) prednisone 20 mg tablet 40 mg PO BID 02/26/24 02/26/24 History sodium chloride, sodium See Rx Instructions .Route .COMPLEX 02/26/24 02/26/24 History bicarb-nasal rinse squeeze bottle with packet (Neilmed Sinus Rinse Complete with packet) trazodone 50 mg tablet 25 mg PO QPM PRN Sleep 02/26/24 02/26/24 History Past Med/Surg History Medical History (Updated 02/26/24 @ 15:58 by MYRIAM aMrley) Tachy-luis syndrome Depression CAD (coronary artery disease) PMR (polymyalgia rheumatica) Multiple pulmonary nodules determined by computed tomography of lung Obstructive sleep apnea (adult) (pediatric) GIB (gastrointestinal bleeding) Iron deficiency anemia Nasal congestion Anaplasmosis Infected lesion in nose Concussion Hyperlipidemia Hemorrhoids Hypothyroidism Hypertension History of coronary artery disease Left bundle branch block GERD (gastroesophageal reflux disease) Surgical History History of esophagogastroduodenoscopy (EGD) 02/22/21 Dr. Pablo Mckay S/P colonoscopy 02/26/21 Dr. Pablo Mckay History of bilateral oophorectomy History of hernia surgery History of back surgery Hx of hysterectomy H/O cardiac catheterization Family History Father Hypertension Heart disease Mother Stroke Other Breast cancer Myocardial infarction No family history of adverse response to anesthesia No family history of bleeding disorder Denies family history of Ovarian cancer Prostate cancer Colorectal cancer Social History Smoking Status: Never smoker Second Hand Exposure: No; Do You Dip or Chew Tobacco: No; Hx Alcohol Use: No Hx Substance Use: Yes Preferred Language: Estonian Communication Ability: Effective 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: No Beliefs That Will Affect Care: None marital status: Current Living Situation: Spouse current occupational status: retired How many Children do You have: 3 Feels Safe at Home: Yes caffeine: Yes Dental Care, Regularly: Yes Physical Activity Frequency: 1-2 Times per Week Seatbelt Use: always Sunscreen Use: Yes Assistive Devices: None Review of Systems 2 Review of Systems: Neuro: (-) Falls, trauma, slurred speech HEENT: (-) GENAO, dizziness, dysphagia, visual or auditory changes CV: (-) CP, (+) palpitations, (-) swelling Resp: (+) SOB GI: (-) appetite changes, N/V/D, bowel changes : (-) urinary changes Skin: (-) rashes Psych: (-) anxiety, depression Physical Exam Physical Exam: Neuro: AAOx4, PERRLA, no aphagia, memory changes, CNII-XII grossly intact HEENT: head normocephalic, moist mucus membranes CV: Irregularly Irregular, (-) M/G/R, (-) edema, cap refill < 3 seconds Resp: Lungs CTA in all wong. On RA GI: Abdomen S/NT/ND, Ax4 bowel sounds, (-) CVA tenderness Musculoskeletal: 5/5 B/L UE strength, 5/5 B/L LE strength. No gait disturbance Skin: (-) rashes , (-) erythema. Psych: euthymic mood Results & Data Results & Data Vital Signs (Past 12 Hours) Vital Signs Temp Pulse Pulse Resp BP BP Pulse Ox 02/26/24 13:55 126 H 120/81 02/26/24 13:07 127 H 02/26/24 12:02 36.8 C 105 H 20 123/71 97 02/26/24 12:02 97 02/26/24 09:22 36.8 C 121 H 20 139/78 98 O2 Del Method 02/26/24 13:55 02/26/24 13:07 02/26/24 12:02 Room Air 02/26/24 12:02 Room Air 02/26/24 09:22 Room Air Laboratory Results Short CBC 02/26/24 Range/Units 09:32 WBC 10.81 H (4.8-10.8) K/ul Hgb 13.9 (12.0-16.0) g/dl Hct 41.8 (37.0-47.0) % Plt Count 175 (130-400) K/uL BMP 02/26/24 09:32 Sodium 142 Potassium 3.0 L Chloride 105 Carbon Dioxide 29 BUN 22 Creatinine 0.79 Glucose 122 H Calcium 9.2 Liver Function 02/26/24 Range/Units 09:32 Total Bilirubin 0.6 (0.2-1.0) mg/dl AST 12 L (13-39) U/L ALT 16 (7-52) U/L Alkaline Phosphatase 43 (34-104) U/L Albumin 4.0 (3.4-5.0) gm/dl Diagnostic Findings Chest X-Ray 02/26/24 09:27 SINGLE VIEW CHEST CLINICAL HISTORY: Atypical chest pain. FINDINGS: A PA chest radiograph is compared to study dated 03/30/2022 when correlated with chest CT dated 06/27/2023. A 2-lead cardiac pacemaker is unchanged in position and partially obscures the left upper chest. The heart is enlarged. The pulmonary vasculature is noncongested. Chronic interstitial thickening is similar to previous. There is mild bibasilar scarring/atelectasis. The lungs and pleural spaces are otherwise clear. No pneumothorax is seen. The skeletal structures are osteopenic. The bony thorax is grossly intact. IMPRESSION: 1. Cardiomegaly and cardiac pacemaker without radiographic evidence of congestive failure. 2. No airspace consolidation or pleural effusion is identified. ACT 112: Negative or not required by law. Electronically signed by: Asif Bruce M.D. 02/26/2024 11:09 AM Code Status & VTE Plan Code Status Full code in the event of cardiac respiratory arrest VTE Prophylaxis Plan VTE Prophylaxis will be ordered: Yes Supervising Physician Co-Signing Physician Notes Patient was seen and examined at bedside. Chart reviewed. Case discussed with Iliana MIGUEL and agree with the documentation above. In summary, this is a 73 year old female with h/o tachybrady syndrome s/p PPM who presented to the ED with symptomatic A fib since last night which did not improved despite an extra dose of home toprol this morning (takes toprol 25 mg hs, took another 25 this morning). She was given a dose of iv lopressor in the ED with improvement in HR and symptoms. Will start on po lopressor 25 mg tid. Resume eliquis and prednisone. TSH normal, Electrolytes normal. Cardiology to see the patient in consult and provide further recommendations. Monitor on tele. Never required cardioversion before for her Afib and her A fib never lasted this long per patient. Keep npo after midnight in case she fails to convert and need CV in am. Rest as per the note above. On exam- General: Lying comfortably in bed, not in distress, on room air HEENT: EOMI, LEX, MMM Chest: Clear breath sounds bilaterally, no wheezes or crackles CVS: Irregularly irregular Abdomen: Soft, non tender, not distended, normal bowel sounds Neuro: Awake, alert, oriented, conversing well, non focal Extremities: No edema
--- NOTE | 2024-02-26 14:50 | Cardiology Consultation ---
Date of Consultation February 26, 2024 Assessment & Plan (1) Atrial fibrillation with rapid ventricular response: (2) Hypokalemia: (3) Hypomagnesemia: (4) Left bundle branch block: (5) Cardiac pacemaker in situ: Plan Patient admitted for recurrent afib RVR, starting early this morning. Noted to have low K+ and Low magnesium in the ER. These have been supplemented. Stop potassium gtt due to IV discomfort. Recheck electrolytes this evening and supplement oral potassium. Continue Eliquis 5 mg BID. Give dose now since she missed morning dose. PM dose around midnight. This was communicated with admission team. Start metoprolol tartrate 25 mg TID on admission. Partneredtr[employer] rep adjusted pacer settings in attempts to overdrive pace out of afib. If she remains in afib with elevated rates tonight, would start IV diltiazem. Make NPO tonight. possible cardioversion in AM if she remains in afib Minimally elevated troponin, consistent with afib RVR. update echo. last echo with preserved EF, grade II diastolic dysfunction, and severe LA enlargement. Case discussed with Dr. Quesada I spent a total of 45 minutes on the date of service in preparation, delivery, and documentation of the care provided to this patient, excluding any time spent in the performance of separately billed services. Nicole Severino PA-C Department of Cardiology, [facility] This chart was completed in part utilizing Speech Voice Recognition Software. Grammatical errors, random word insertions, pronoun errors, and incomplete sentences are an occasional consequence of this system due to software limitations, ambient noise, and hardware issues. Any formal questions or concerns about the content, text, or information contained within the body of this dictation should be directly addressed to the provider for clarification. Supervising Physician Co-Signing Physician Notes I have reviewed the advance practitioner's documentation, and I agree with, and take responsibility for the plan of care. I have personally performed a history and physical examination on the patient. 73-year-old female present to the emergency department with palpitations. ECG demonstrating atrial fibrillation/flutter with rapid ventricular response. Duration of arrhythmia difficult to ascertain per device interrogation due to low flutter rate. Patient denies chest pain or heaviness. Dyspnea on exertion noted. Heart rate improved with 5 mg of IV Lopressor. PE: Borderline tachycardia otherwise stable vital signs. General: NAD, awake alert and orient x 3. Heart: Regular rhythm, normal S1-S2. No murmur. Pulmonary: Clear bilateral, no rales, rhonchi, wheeze. Extremities: No edema. A/P: 73-year-old female presents with symptomatic paroxysmal atrial fibrillation/flutter. Chronically anticoagulant with Eliquis however missed her a.m. dose. 5 mg Eliquis x 1 now. She received 5 mg of IV Lopressor with heart rate improvement. Titrate metoprolol to 25 mg 3 times daily with first dose now. Initiate IV diltiazem infusion overnight if necessary to maintain adequate rate control (HR less than 120 bpm). Cardioversion may be considered during hospitalization pending clinical course. Pacemaker antitachycardia pacing therapies activated. I spent a total of 30 minutes on the date of service in preparation, delivery, and documentation of the care provided to this patient, excluding any time spent in the performance of separately billed services. History of Present Illness Reason for Consultation: Afib RVR Requesting Physician: MYRIAM Harrell Attending Physician: Dr. Quesada History of Present Illness Patient is a 73 year old female known to [facility]. history includes: SSS/Tachybrady S/P dual lead pacemaker in Oct 2022 LBBB PAF previously on Eliquis and stopped due to GI bleed/hemorrhoids. Underwent Hemorrhoidectomy with resolution. Eliquis resumed with recurrent afib. [id number] (age, female, CAD, HTN, DM). CAD non-obstructive medically managed cath 10/2006 mLAD 30%; repeat cath 09/2011 25% mLAD HTN DM Hypothyroidism INEZ on CPAP Patient recently diagnosed with PMR and has been taking high dose steroids for the last 8 weeks Last night patient awakened from sleep and noticed significant palpitations with elevated HR's. She tried to go back to sleep and rest. Upon awakening this morning she reported ongoing palpitations and contacted cardiology office. Device check also sent which demonstrated recurrent afib/flutter with RVR. She was sent to the ER for evaluation. Upon arrival to ER, EKG demonstrated atrial fibrillation with a rapid ventricular response. Labs demonstrated hypokalemia and hypomagnesia. Supplementation has been started. IV potassium is bothering her with significant burning sensation at the IV site. She reports compliance with Eliquis without missed doses. She did not take her morning medication this morning and is receiving Eliquis dose in the ER. She also has been compliant with HCTZ and potassium supplement at home [employer]tr[employer] in to see the patient and turned on atrial pacing therapies. At time of consult, patient feeling ok. Intermittent palpitations and SOB noted with the afib. She denies chest pain. No dizziness. No swelling. Allergies Allergy/AdvReac Type Severity Reaction Status Date / Time citalopram [From Celexa] Allergy Unknown Unknown Verified 02/26/24 12:55 Sulfa (Sulfonamide Allergy Unknown UNKNOWN Verified 02/26/24 12:55 Antibiotics) albuterol AdvReac Intermediate racing Verified 02/26/24 12:55 heart Home Medications Medication Instructions Recorded Confirmed Type nitroglycerin 0.4 mg sublingual 0.4 mg sublingual Q5M PRN Chest 07/26/19 02/26/24 History tablet Pain psyllium husk 3.4 gram/5.4 gram 1 tbs PO DAILY PRN Constipation 03/10/20 02/26/24 History oral powder (Metamucil) atorvastatin 20 mg tablet 20 mg PO HS 03/19/20 02/26/24 History lorazepam 1 mg tablet 1 mg PO Q8H PRN Anxiety 03/21/20 02/26/24 History hydrochlorothiazide 25 mg tablet 25 mg PO DAILY 06/01/20 02/26/24 History cholecalciferol (vitamin D3) 25 2,000 unit PO QAM 01/04/21 02/26/24 History mcg (1,000 unit) capsule multivitamin 1 tab PO QAM 01/04/21 02/26/24 History blood sugar diagnostic (OneTouch #100 ea 01/08/21 02/26/24 Rx Ultra Blue Test Strip) levothyroxine 50 mcg tablet 50 mcg PO DAILY #30 tabs 04/04/22 02/26/24 Rx sertraline 100 mg tablet 150 mg (1.5 x 100 mg) PO QAM #45 04/16/22 02/26/24 Rx tabs apixaban 5 mg tablet (Eliquis) 5 mg PO BID 02/26/24 02/26/24 History metformin 500 mg tablet,extended 500 mg PO QPM 02/26/24 02/26/24 History release 24 hr metoprolol succinate 25 mg 25 mg PO QPM 02/26/24 02/26/24 History tablet,extended release 24 hr potassium chloride 20 mEq 20 meq PO QAM 02/26/24 02/26/24 History tablet,extended release(part/cryst) prednisone 20 mg tablet 40 mg PO BID 02/26/24 02/26/24 History sodium chloride, sodium See Rx Instructions .Route .COMPLEX 02/26/24 02/26/24 History bicarb-nasal rinse squeeze bottle with packet (Neilmed Sinus Rinse Complete with packet) trazodone 50 mg tablet 25 mg PO QPM PRN Sleep 02/26/24 02/26/24 History Patient History Medical History (Updated 02/26/24 @ 19:38 by Renan Xiong MD) Tachy-luis syndrome Depression CAD (coronary artery disease) PMR (polymyalgia rheumatica) Multiple pulmonary nodules determined by computed tomography of lung Obstructive sleep apnea (adult) (pediatric) GIB (gastrointestinal bleeding) Iron deficiency anemia Nasal congestion Anaplasmosis Infected lesion in nose Concussion Hyperlipidemia Hemorrhoids Hypothyroidism Hypertension History of coronary artery disease Left bundle branch block GERD (gastroesophageal reflux disease) Surgical History History of esophagogastroduodenoscopy (EGD) 02/22/21 Dr. Pablo Mckay S/P colonoscopy 02/26/21 Dr. Pablo Mckay History of bilateral oophorectomy History of hernia surgery History of back surgery Hx of hysterectomy H/O cardiac catheterization Family History Father Hypertension Heart disease Mother Stroke Other Breast cancer Myocardial infarction No family history of adverse response to anesthesia No family history of bleeding disorder Denies family history of Ovarian cancer Prostate cancer Colorectal cancer Social History Smoking Status: Never smoker Second Hand Exposure: No; Do You Dip or Chew Tobacco: No; Hx Alcohol Use: No Hx Substance Use: No Preferred Language: Polish Communication Ability: Effective 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 Beliefs That Will Affect Care: None marital status: Current Living Situation: Spouse current occupational status: retired How many Children do You have: 3 Other Information That Helps Us Care for You: No Feels Safe at Home: Yes Safety Concerns: Feels Safe At This Time caffeine: Yes Dental Care, Regularly: Yes Physical Activity Frequency: 1-2 Times per Week Seatbelt Use: always Sunscreen Use: Yes Assistive Devices: CPAP Review of Systems Review of Systems: All systems reviewed & are unremarkable except as noted in HPI & below Physical Exam Constitutional: WD/WN, vitals as above well nourished; no acute distress Respiratory: no respiratory distress Auscultation: lungs clear to auscultation bilaterally; no crackles, no rales and no wheezes Cardiovascular: Rate/Rhythm: + tachycardic and + irregularly irregular Vessels: no JVD Extremities: + edema (trace ankle edema) Gastrointestinal (Abdomen): normal bowel sounds, soft, nontender, no hepatosplenomegaly Musculoskeletal: no cyanosis or clubbing, extremities motor strength 5/5 Skin: no rashes, warm and dry Neurologic: PERRL, EOMI, accommodation nl, no face palsy, no dysarthria Results & Data Vital Signs (Past 12 Hours) Vital Signs Temp Pulse Pulse Resp BP BP Pulse Ox 02/26/24 13:55 126 H 120/81 02/26/24 13:07 127 H 02/26/24 12:02 36.8 C 105 H 20 123/71 97 02/26/24 12:02 97 02/26/24 09:22 36.8 C 121 H 20 139/78 98 O2 Del Method 02/26/24 13:55 02/26/24 13:07 02/26/24 12:02 Room Air 02/26/24 12:02 Room Air 02/26/24 09:22 Room Air Laboratory Results Cardiac Enzymes 02/26/24 02/26/24 Range/Units 09:32 12:36 AST 12 L (13-39) U/L Troponin I High Sens 33.5 H 44.8 H D (0-14) pg/ml Coagulation 02/26/24 Range/Units 09:32 PT 10.5 (9.0-12.0) Seconds APTT 24 (21-31) Seconds CBC 02/26/24 Range/Units 09:32 WBC 10.81 H (4.8-10.8) K/ul RBC 4.37 (4.20-5.40) M/uL Hgb 13.9 (12.0-16.0) g/dl Hct 41.8 (37.0-47.0) % Plt Count 175 (130-400) K/uL Neut # (Auto) 5.59 (1.40-6.50) K/uL Lymph # (Auto) 4.25 H (1.20-3.40) K/uL [place] # (Auto) 0.73 H (0.11-0.59) K/uL Eos # (Auto) 0.06 (0.00-0.50) K/uL Baso # (Auto) 0.05 (0.00-0.20) K/uL Comprehensive Metabolic Panel 02/26/24 Range/Units 09:32 Sodium 142 (136-145) mmol/L Potassium 3.0 L (3.5-5.1) mmol/L Chloride 105 (98-107) mmol/L Carbon Dioxide 29 (21-32) mmol/L BUN 22 (6-23) mg/dl Creatinine 0.79 (0.6-1.2) mg/dl Glucose 122 H (70-99(Fasting)) mg/dl Calcium 9.2 (8.6-10.3) mg/dl AST 12 L (13-39) U/L ALT 16 (7-52) U/L Alkaline Phosphatase 43 (34-104) U/L Total Protein 6.5 (6.0-8.3) gm/dl Albumin 4.0 (3.4-5.0) gm/dl Intake and Output 02/26/24 02/26/24 02/26/24 06:59 14:59 22:59 Other: Weight 94.7 kg Weight Measurement Method Chair Scale Patient Weight 02/27/24 06:59 Weight 94.7 kg Diagnostic Findings Telemetry reviewed: Afib with rates ranging 100-120's Device interrogation reviewed: Appropriate function/battery longevity. Atrial sensing adjusted to monitor for recurrent afib. Atrial therapies turned on EKG: Atrial fibrillation with RVR LBBB compared with prior EKG, afib has replaced paced rhythm Chest X-Ray 02/26/24 09:27 IMPRESSION: 1. Cardiomegaly and cardiac pacemaker without radiographic evidence of congestive failure. 2. No airspace consolidation or pleural effusion is identified. Echo report reviewed from January 2023: Interpretation Summary The primary indication after review was deemed appropriate and the examination was performed. Compared to last available study, there has been no interval change. Normal LV chamber size with mild concentric LVH. Normal LV systolic function without regional wall motion abnormalities. Calculated LV ejection Fraction = 55% (bi-plane method of discs). Grade 2 diastolic dysfunction. Mild mitral regurgitation. Severe left atrial enlargement. Medications Administered Current Inpatient Medications Acetaminophen (Acetaminophen 325 Mg Tab) 650 mg PO Q4H PRN PRN Reason: Pain or Fever Stop: 03/27/24 14:10 Al Hydrox/Mg Hydrox/Simethicone (Aluminum/Magnesium Susp 30 Ml Udc) 15 ml PO Q4H PRN PRN Reason: Dyspepsia Stop: 03/27/24 14:10 Apixaban (Apixaban 5 Mg Tablet) 5 mg PO BID XANDER Stop: 03/28/24 08:59 Apixaban (Apixaban 5 Mg Tablet) 5 mg PO TODAY@0000 ONE Stop: 02/27/24 00:01 Atorvastatin Calcium (Atorvastatin 20 Mg Tab) 20 mg PO HS XANDER Stop: 03/27/24 20:59 Dextrose (Dextrose 50% 50 Ml Syringe) 25 - 50 ml IV UD PRN; Protocol PRN Reason: Hypoglycemia Protocol Stop: 03/27/24 15:22 Glucagon (Glucagon For Inj 1 Mg Vial) 1 mg SQ UD PRN; Protocol PRN Reason: Hypoglycemia Protocol Stop: 03/27/24 15:22 Glucose (Glucose 40% Gel 15 Gm Tube) 15 - 30 gm PO UD PRN; Protocol PRN Reason: Hypoglycemia Protocol Stop: 03/27/24 15:22 Glucose (Glucose 10 Tab/Tube) 4 - 8 tab PO UD PRN; Protocol PRN Reason: Hypoglycemia Treatment Stop: 03/27/24 15:22 Hydrochlorothiazide (Hydrochlorothiazide 25 Mg Tab) 25 mg PO DAILY XANDER Stop: 03/27/24 15:14 Insulin Aspart (Insulin Aspart Per Unit Charge) 0 units SC ACHS XANDER Stop: 03/27/24 16:29 Insulin Glargine (Lantus Per Unit Charge) 10 units SQ BID XANDER Stop: 03/27/24 20:59 Levothyroxine Sodium (Levothyroxine Sodium 50 Mcg Tablet) 50 mcg PO DAILY XANDER Stop: 03/27/24 15:14 Lorazepam (Lorazepam 1 Mg Tab) 1 mg PO Q8H PRN PRN Reason: Anxiety Stop: 03/27/24 15:03 Magnesium Hydroxide (Magnesium Hydroxide Susp 30 Ml Udc) 30 ml PO Q12H PRN PRN Reason: Constipation Stop: 03/27/24 14:10 Metoprolol Tartrate (Metoprolol Tartrate 25 Mg Tab) 25 mg PO TID [facility] Stop: 03/27/24 15:29 Miscellaneous (Carbohydrates For Hypoglycemia ) 15 - 30 gm PO UD PRN PRN Reason: Hypoglycemia Protocol Stop: 03/27/24 15:22 Miscellaneous Information (Pharmacy Glycemic Mgmt Consult) 1 each N/A UD PRN PRN Reason: Consult Stop: 03/27/24 15:22 Non-Formulary Medication (Sod Iihir-Rjqmqs-Lmxiyn Bottle [Neilmed Sinus Rinse Complete]) 0 each .ROUTE .COMPLEX [facility] Stop: 03/27/24 15:14 Ondansetron HCl (Ondansetron Inj 2 Mg/Ml 2 Ml Vial) 4 mg IV Q6H PRN PRN Reason: Nausea Stop: 03/27/24 14:10 Polyethylene Glycol (Polyethylene (Miralax) 17 Gm Pack) 17 gm PO DAILY PRN PRN Reason: Constipation Stop: 03/27/24 14:10 Prednisone (Prednisone 20 Mg Tab) 40 mg PO BID [facility] Stop: 03/27/24 20:59 Prednisone (Prednisone 20 Mg Tab) 40 mg PO NOW ONE Stop: 02/26/24 15:22 Sertraline HCl (Sertraline Hcl 50 Mg Tablet) 150 mg PO QAM [facility] Stop: 03/27/24 15:14 Vitamin D (Cholecalciferol 25 Mcg (1000 Units) Tab) mcg PO QAM [facility] Stop: 03/27/24 15:14
[2024-02-26] MEDS ORDERED: LORazepam 1 MG TAB PO PRN (15:04)
[2024-02-26] MEDS ORDERED: [UNRECOGNIZED DRUG - OTHER] SCH (15:15)
[2024-02-26] MEDS ORDERED: DEXTROSE 50% 50 ML SYRINGE IV PRN (15:23)
[2024-02-26] MEDS ORDERED: CARBOHYDRATES FOR HYPOGLYCEMIA PO PRN (15:23)
[2024-02-26] MEDS ORDERED: GLUCOSE 10 TAB/TUBE PO PRN (15:23)
[2024-02-26] MEDS ORDERED: GLUCOSE 40% GEL 15 GM TUBE PO PRN (15:23)
[2024-02-26] MEDS ORDERED: PHARMACY GLYCEMIC MGMT CONSULT PRN (15:23)
[2024-02-26] MEDS ORDERED: GLUCAGON FOR INJ 1 MG VIAL SQ PRN (15:23)
[2024-02-26] MEDS ORDERED: METOPROLOL TARTRATE 25 MG TAB PO SCH (16:00)
[2024-02-26] MEDS: hydroCHLOROthiazide 25 MG TAB PO SCH (16:09)
[2024-02-26 16:41] LABS: Hematocrit (blood only) 42.2 % (37.0-47.0); Hemoglobin 13.9 g/dl (12.0-16.0); Mean Corpuscular Hemoglobin 31.3 pg (25.0-34.0); Mean Corpuscular Hgb Conc 32.9 g/dL (32.0-36.0); Mean Platelet Volume 11.3 fL (9.4-12.4); Nucleated RBC # (auto) 0.02 K/uL (0.00-0.12); Nucleated RBC % (auto) 0.2 %; Platelet Count 175 K/uL (130-400); RDW Coefficient of Variation 14.2 % (11.5-14.5); RDW Standard Deviation 49.3 fL (36.4-46.3); Red Blood Count 4.44 M/uL (4.20-5.40); White Blood Count 12.23 K/ul (4.8-10.8)
[2024-02-26] MEDS: CHOLECALCIFEROL 25 MCG (1000 UNITS) TAB PO SCH (16:43)
[2024-02-26] MEDS: SERTRALINE HCL 50 MG TABLET PO SCH (16:43)
[2024-02-26] MEDS: METOPROLOL TARTRATE 25 MG TAB PO SCH (16:44)
[2024-02-26] MEDS: predniSONE 20 MG TAB PO ONE (16:44)
[2024-02-26] MEDS: APIXABAN 5 MG TABLET PO ONE ×2 (16:44→23:54)
[2024-02-26] MEDS: LEVOTHYROXINE SODIUM 50 MCG TABLET PO SCH (16:45)
[2024-02-26] MEDS: INSULIN ASPART PER UNIT CHARGE SC SCH (17:26)
[2024-02-26] MEDS ORDERED: predniSONE 20 MG TAB PO SCH (21:00)
[2024-02-26] MEDS ORDERED: LANTUS PER UNIT CHARGE SQ SCH (21:00)
[2024-02-26] MEDS: POTASSIUM CHLORIDE CRTAB 20 MEQ TABCR PO SCH (21:19)
[2024-02-26] MEDS: ATORVASTATIN 20 MG TAB PO SCH (21:19)
[2024-02-27 06:28] LABS: BUN Creatinine Ratio 34.6 (10-20); Calcium 8.8 mg/dl (8.6-10.3); Creatinine Clr Calc Pharmacy 73.2 ml/min; Est GFR (African American) 87.4 ml/min; Est GFR (Non-African American) 75.4 ml/min; Magnesium 2.1 mg/dl (1.7-2.4); Phosphorus 3.2 mg/dl (2.5-4.9); Potassium 4.2 mmol/L (3.5-5.1)
[2024-02-27 07:26] LABS: Estimated Average Glucose 154 mg/dl
--- NOTE | 2024-02-27 08:49 | Cardiology Progress Note ---
Date of Service February 27, 2024 Assessment & Plan (1) Atrial fibrillation with rapid ventricular response: (2) Hypokalemia: (3) Hypomagnesemia: (4) Left bundle branch block: (5) Cardiac pacemaker in situ: Plan Patient admitted for recurrent afib RVR, yesterday morning. Patient converted to NSR at 1620 yesterday per review of telemetry. Serum K and Mag were low on admission, since supplemented. goal Serum Mag >2.0 and Serum K > 2.0 Will transition Toprol xl to 50mg PO QAM and 25mg QPM [employer]tr[employer] rep adjusted pacer settings in attempts to overdrive pace out of afib. Minimally elevated troponin, consistent with afib RVR. Repeat Echocardiogram with preserved EF, grade II diastolic dysfunction, and severe LA enlargement. Case has been discussed with Dr. Quesada. Further recommendations regarding plan of care as per his assessment. I spent a total of 30 minutes on the date of service in preparation, delivery, documentation of the care provided to the patient excluding any time spent in the performance of separately billed services. MYRIAM Bui [facility] Admission and Anticipated Discharge Date Admission Date: February 26, 2024 Supervising Physician Co-Signing Physician Notes I have reviewed the advance practitioner's documentation, and I agree with, and take responsibility for the plan of care. I have personally performed a history and physical examination on the patient. 73-year-old female feeling better today. Converted to sinus rhythm yesterday. Telemetry reveals AV paced rhythm. Tolerating metoprolol, titrated to 75 mg daily. Outpatient dose 25 mg once daily. Feeling well from a cardiovascular perspective. Requesting discharge if possible. PE: VSS. General: NAD, awake alert and orient x 3. Heart: Regular rhythm, normal S1-S2. No murmur. Pulmonary: Clear bilateral, no rales, rhonchi, wheeze. Extremities: No edema. A/P: 73-year-old female presents with symptomatic paroxysmal atrial fibrillation/flutter. Converted to sinus rhythm overnight with titration of beta-ludy therapy. Recommend discharge on 50 mg of Toprol-XL in the a.m., 25 mg in the evening. Continue chronic anticoagulation with Eliquis 5 mg twice daily. Pacemaker antitachycardia pacing therapies activated during hospitalization. No further inpatient cardiac testing or intervention warranted at this time. Cardiology will sign off. Please call with additional concerns/questions. I spent a total of 30 minutes on the date of service in preparation, delivery, and documentation of the care provided to this patient, excluding any time spent in the performance of separately billed services. Subjective 02/27/2024: Patient seen and examined in follow up today. She is resting comfortably in bed today with no concerns of complaints. Denies chest pain, pressure, palpitations, shortness of breath, PND, pre- syncope, syncope or edema. Labs, diagnostics, telemetry, vitals, and documentation reviewed. Review of telemetry demonstrates A Paced. Rates 60's. Patient had converted from A-fib to SR at 1620 yesterday. this was confirmed with patient as she felt the conversion. Review of Systems Review of Systems: All systems reviewed & are unremarkable except as noted in HPI & below Physical Exam Constitutional: well developed and well nourished; no acute distress and not ill appearing Neck: normal visual inspection and trachea midline Respiratory: normal respiratory effort, lungs clear to auscultation Cardiovascular: RRR, no murmur, no edema Rate/Rhythm: regular rate and regular rhythm Heart Sounds: normal S1 and normal S2; no murmur Vessels: no JVD Skin: no rashes, warm and dry Psychiatric: A+Ox3, euthymic affect Results & Data Vital Signs (Past 12 Hours) Vital Signs Temp Pulse Resp BP Pulse Ox O2 Del Method 02/27/24 07:34 36.7 C 67 17 125/78 96 Room Air 02/27/24 02:56 36.6 C 63 18 119/75 95 Room Air 02/26/24 22:12 36.5 C 68 18 112/65 92 Room Air Laboratory Results Cardiac Enzymes 02/26/24 Range/Units 18:11 Troponin I High Sens 49.8 H (0-14) pg/ml CBC 02/26/24 Range/Units 16:03 WBC 12.23 H (4.8-10.8) K/ul RBC 4.44 (4.20-5.40) M/uL Hgb 13.9 (12.0-16.0) g/dl Hct 42.2 (37.0-47.0) % Plt Count 175 (130-400) K/uL Comprehensive Metabolic Panel 02/26/24 02/27/24 Range/Units 20:56 05:29 Sodium 140 (136-145) mmol/L Potassium 4.1 D 4.2 (3.5-5.1) mmol/L Chloride 107 (98-107) mmol/L Carbon Dioxide 27 (21-32) mmol/L BUN 27 H (6-23) mg/dl Creatinine 0.78 (0.6-1.2) mg/dl Glucose 129 H (70-99(Fasting)) mg/dl Calcium 8.8 (8.6-10.3) mg/dl Intake and Output 02/26/24 02/27/24 02/27/24 22:59 06:59 14:59 Intake Total 1000 / 1000 0 / 1000 200 / 200 Balance 1000 / 1000 0 / 1000 200 / 200 Intake: IV 700 / 700 Magnesium Sulfate / D5w 1 gm In 100 / 100 100 ml @ 100 mls/hr IV NOW STA Rx#:[id number] Potassium Chloride / Wtr 10 meq 100 / 100 In 100 ml @ 100 mls/hr IV Q1H [facility] Rx#:[id number] Sodium Chloride 0.9% 500 ml @ 500 / 500 999 mls/hr IV .Q31M ONE Rx#: [id number] Oral 300 / 300 0 / 300 200 / 200 Other: # Unmeasured Voids 1 1 3 Weight 103.7 kg 101.8 kg Weight Measurement Method [facility] Diagnostic Findings Echocardiogram today: LV systolic function is normal. LVEF 55-60% left atrium mildly dilated Mild MR Mild TR No suggestion of pulmonary HTN
[2024-02-27] MEDS: predniSONE 5 MG TAB PO SCH (09:04)
[2024-02-27] MEDS: APIXABAN 5 MG TABLET PO SCH (09:05)
--- NOTE | 2024-02-27 12:44 | Electrocardiogram Report ---
Test Reason : Blood Pressure : / mmHG Vent. Rate : 064 BPM Atrial Rate : 065 BPM P-R Int : 000 ms QRS Dur : 142 ms QT Int : 456 ms P-R-T Axes : 000 143 -79 degrees QTc Int : 470 ms AV dual-paced rhythm Abnormal ECG When compared with ECG of 26-FEB-2024 09:30, (unconfirmed) AV dual-paced rhythm has replaced Atrial fibrillation Vent. rate has decreased BY 58 BPM Confirmed by Jed Narvaez ([id number]) on 02/27/2024 12:44:04 PM Referred By: REFERRED SELF Confirmed By:Jed Narvaez
--- NOTE | 2024-02-27 14:16 | Hospitalist Progress Note ---
Date of Service February 27, 2024 Assessment & Plan (1) Atrial fibrillation with rapid ventricular response: (2) Hypertension: (3) Hypothyroidism: (4) Hyperlipidemia: (5) Left bundle branch block: (6) CAD in [place] artery: (7) Hypokalemia: (8) PMR (polymyalgia rheumatica): (9) CAD (coronary artery disease): (10) Depression: (11) Tachy-luis syndrome: (12) Cardiac pacemaker in situ: Plan 71 y/o F presents to the [facility] as recommended by her Pre Wave Assembler TRAVIS as she was noted to be in AF RVR. Pt has known AF and takes Eliquis; reporting compliance. She is prescribed metoprolol ER 25 mg and takes it every afternoon which she took last night and then took the additional dose as recommended this morning.Pacemaker that was inserted for tachybradycardia syndrome in October 2022. In the ED during pacemaker interrogation the pacemaker was unable to detect flutter. [employer] proceeded to come in and was at bedside and after discussion with cardiology agreed to turn on atrial pacing therapies. She was just recently diagnosed with PMR and has not on high-dose p.o. Prednisone for the last 6 weeks. She is currently taking 40 mg p.o. twice daily with a dose reduction to 35 mg starting 02/26. Last ECHO 03/15/2021 LV wall thickness mildly concentric, septal wall motion abnormal consistent with LBBB, grade 1 diastolic dysfunction, mild MR/TR In the ED she was given Metoprolol 5 mg IV once. Her HR was 150's initially. Troponin initially 33.5--> 44.8 suspect ischemic demand related to RVR. Patient will be admitted for further evaluation management of her atrial flutter. [employer] to make atrial pacing therapy adjustments on settings at bedside. Will administer metoprolol tartrate 25 mg p.o. 3 times daily, replace potassium, trend troponin, formal cardiology consult placed, monitor sugars due to increased prednisone intake for new diagnosis of PMR. If no improvement with atrial pacing therapies consider diltiazem. Afib RVR: [id number] score 5; female, age, CAD history, HTN, and DM -ECHO: Left ventricular systolic function is normal. EF 55 to 60%. Left atrium is mildly dilated. Mild mitral and tricuspid regurgitation. -Normal TSH Monitor and replete electrolytes as needed Pacemaker settings adjusted Appreciate cardiology input Metoprolol succinate dose increased to 50 mg every morning, 25 mg every afternoon Spontaneously converted to sinus Advised to follow-up with cardiology on discharge Hypokalemia: Replete and monitor PMR: Newly diagnosed generalized joint pain Follows with Rheumatology Started on Prednisone 40 mg PO daily; currently on taper course --35 mg daily Taper dose pack to be completed 04/06 per [facility] E[facility] and with pt Monitor sugars TBS: Status post dual-lead pacemaker: Chronic Placed October 2022 Pacer interrogation was not revealing flutter [employer] to make atrial pacing adjustments at bedside CAD: Chronic Nonobstructive medically managed by cath 10/2006 Mid LAD 30%; repeat cath 09/2011 25% mid LAD stenosis Known LBBB INEZ: Chronic Wears CPAP nightly Continue CPAP hs DM2: Chronic Takes Metformin;hold while inpatient Place on SSI; higher stress dosing due to steroids with PMR HbA1c 7.0 HTN: Chronic Takes HCTZ; continue HLD: Chronic Takes atorvastatin; continue Hypothyroidism: Chronic Takes levothyroxine; continue Last TSH 01/06/2024 3.42 Code Status: Full Code VTE Px: Eliquis Disposition Home Admission and Anticipated Discharge Date Admission Date: February 26, 2024 Subjective Patient is seen and examined at bedside States feeling better today Dizziness, palpitations, dyspnea resolved Discussed with cardiology today Offers no other complaints Plan to be discharged home today Review of Systems Review of Systems: All systems reviewed & are unremarkable except as noted in Subjective Physical Exam Physical Exam: Physical Exam: Vitals signs as noted above General Appearance:Obese, no apparent distress Head: normocephalic, Atraumatic Eyes: normal inspection, EOMI Neck: supple, Trachea midline Respiratory/Chest: Normal breath sounds, CTA, No accessory muscle use Cardiovascular: S1, S2, No murmur, +Pacer Abdomen/GI:Soft, Non tender, Bowel sounds present Extremities/Musculoskeletal:normal inspection, Trace pedal edema Neurologic/Psych:AAOX3, grossly no focal neurological deficits Skin: normal color, warm Results & Data Results & Data Vital Signs (Past 12 Hours) Vital Signs Temp Pulse Resp BP Pulse Ox O2 Del Method 02/27/24 10:48 36.6 C 62 17 126/79 97 Room Air 02/27/24 07:34 36.7 C 67 17 125/78 96 Room Air 02/27/24 02:56 36.6 C 63 18 119/75 95 Room Air Laboratory Results Short CBC 02/26/24 Range/Units 16:03 WBC 12.23 H (4.8-10.8) K/ul Hgb 13.9 (12.0-16.0) g/dl Hct 42.2 (37.0-47.0) % Plt Count 175 (130-400) K/uL BMP 02/26/24 02/27/24 20:56 05:29 Sodium 140 Potassium 4.1 D 4.2 Chloride 107 Carbon Dioxide 27 BUN 27 H Creatinine 0.78 Glucose 129 H Calcium 8.8
--- NOTE | 2024-02-27 15:55 | Discharge Summary ---
Date of Service February 27, 2024 Admission HPI Per Admitting Provider 71 year old female that presents to the [facility] as recommended by her Florist Designer TRAVIS as she was noted to be in AF RVR. Pt has known AF and takes Eliquis; reporting compliance. She said that last night she went to bed as normal and woke up around 2 AM with feeling of her heart pounding and racing in her chest. She attempted to go back to sleep without success. When she woke this morning she continued to have palpitation and called over to [facility] cardiology who recommended that she take an additional dose of metoprolol. She is prescribed metoprolol ER 25 mg and takes it every afternoon which she took last night and then took the additional dose as recommended this morning. Her symptoms persisted including dizziness and lightheadedness so she called the cardiology office who recommended that she proceed to the ER. She has a Pacemaker that was inserted for tachybradycardia syndrome in October 2022. In the ED during pacemaker interrogation the pacemaker was unable to detect flutter. [employer] proceeded to come in and was at bedside and after discussion with cardiology agreed to turn on atrial pacing therapies. She was just recently diagnosed with PMR and has not on high-dose p.o. Predn isone for the last 6 weeks. She is currently taking 40 mg p.o. twice daily with a dose reduction to 35 mg starting 02/26 Past medical history includes mild non-obstructive CAD, manage medically which is first identified in 2006 with episodes of exertional chest pain. She has a known LBBB and had a cardiac cath in [place] October with 30% mid LAD stenosis, HTN, CAD, HLD, GI bleed, INEZ, hypothyroidism, rfe-[id number]-konbvytgm diabetes, and depress Last ECHO 03/15/2021 LV wall thickness mildly concentric, septal wall motion abnormal consistent with LBBB, grade 1 diastolic dysfunction, mild MR/TR In the ED she was given 504 occasions or initially 33.5 increased to 44.8 suspect ischemic demand related to RVR. Patient denies headache, current dizziness, chest pain, lower extremity swelling, nausea, vomiting, diarrhea, abdominal pain or tenderness, dysuria, hematochezia, recent falls or trauma. Patient will be admitted for further evaluation management of her atrial flutter. [employer] to make atrial pacing therapy adjustments on settings at bedside. Will administer metoprolol tartrate 25 mg p.o. 3 times daily, replace potassium, trend troponin, formal cardiology consult placed, monitor sugars due to increased prednisone intake for new diagnosis of PMR. If no improvement with atrial pacing therapies consider diltiazem. Admission Exam Per Admitting Provider Neuro: AAOx4, PERRLA, no aphagia, memory changes, CNII-XII grossly intact HEENT: head normocephalic, moist mucus membranes CV: Irregularly Irregular, (-) M/G/R, (-) edema, cap refill < 3 seconds Resp: Lungs CTA in all wong. On RA GI: Abdomen S/NT/ND, Ax4 bowel sounds, (-) CVA tenderness Musculoskeletal: 5/5 B/L UE strength, 5/5 B/L LE strength. No gait disturbance Skin: (-) rashes , (-) erythema. Psych: euthymic mood Principal Diagnosis Atrial fibrillation with rapid ventricular response Hypokalemia Discharge Data Allergies Allergy/AdvReac Type Severity Reaction Status Date / Time citalopram [From Celexa] Allergy Unknown Unknown Verified 02/26/24 12:55 Sulfa (Sulfonamide Allergy Unknown UNKNOWN Verified 02/26/24 12:55 Antibiotics) albuterol AdvReac Intermediate racing Verified 02/26/24 12:55 heart Consultations 02/26/24 14:05 ED Decision to Admit Stat 02/26/24 22:00 Consult Cardiology Routine Procedures Performed Laboratory Results WBC 12.23 K/ul (4.8-10.8) H 02/26/24 16:03 RBC 4.44 M/uL (4.20-5.40) 02/26/24 16:03 Hgb 13.9 g/dl (12.0-16.0) 02/26/24 16:03 Hct 42.2 % (37.0-47.0) 02/26/24 16:03 MCV 95.0 fL (80.0-100.0) 02/26/24 16:03 MCH 31.3 pg (25.0-34.0) 02/26/24 16:03 MCHC 32.9 g/dL (32.0-36.0) 02/26/24 16:03 RDW Std Deviation 49.3 fL (36.4-46.3) H 02/26/24 16:03 RDW Coeff of Vito 14.2 % (11.5-14.5) 02/26/24 16:03 Plt Count 175 K/uL (130-400) 02/26/24 16:03 MPV 11.3 fL (9.4-12.4) 02/26/24 16:03 Immature Gran % (Auto) 1.2 % 02/26/24 09:32 Neut % (Auto) 51.6 % 02/26/24 09:32 Lymph % (Auto) 39.3 % 02/26/24 09:32 Delta % (Auto) 6.8 % 02/26/24 09:32 Eos % (Auto) 0.6 % 02/26/24 09:32 Baso % (Auto) 0.5 % 02/26/24:32 Neut # (Auto) 5.59 K/uL (1.40-6.50) 02/26/24 09:32 Lymph # (Auto) 4.25 K/uL (1.20-3.40) H 02/26/24 09:32 Delta # (Auto) 0.73 K/uL (0.11-0.59) H 02/26/24 09:32 Eos # (Auto) 0.06 K/uL (0.00-0.50) 02/26/24 09:32 Baso # (Auto) 0.05 K/uL (0.00-0.20) 02/26/24 09:32 Immature Gran # (Auto) 0.13 K/uL (0.01-0.20) 02/26/24 09:32 Absolute Nucleated RBC 0.02 K/uL (0.00-0.12) 02/26/24 16:03 Nucleated RBC % (auto) 0.2 % 02/26/24 16:03 PT 10.5 Seconds (9.0-12.0) 02/26/24:32 INR 1.0 (0.9-1.1) 02/26/24:32 APTT 24 Seconds (21-31) 02/26/24 09:32 PTT Ratio 0.9 02/26/24 09:32 Sodium 140 mmol/L (136-145) 02/27/24 05:29 Potassium 4.2 mmol/L (3.5-5.1) 02/27/24 05:29 Chloride 107 mmol/L (98-107) 02/27/24 05:29 Carbon Dioxide 27 mmol/L (21-32) 02/27/24 05:29 Anion Gap 6 (3-11) 02/27/24 05:29 BUN 27 mg/dl (6-23) H 02/27/24 05:29 Creatinine 0.78 mg/dl (0.6-1.2) 02/27/24 05:29 Est Cr Clr Drug Dosing 73.2 ml/min 02/27/24 05:29 Est GFR ( Amer) 87.4 ml/min 02/27/24 05:29 Est GFR (Non-Af Amer) 75.4 ml/min 02/27/24 05:29 BUN/Creatinine Ratio 34.6 (10-20) H 02/27/24 05:29 Glucose 129 mg/dl (70-99(Fasting)) H 02/27/24 05:29 POC Glucose 119 mg/dl (70-99) H 02/27/24 11:13 Estimat Average Glucose 154 mg/dl 02/27/24 05:29 Hemoglobin A1c 7.0 % (4.5-5.6) H 02/27/24 05:29 Calcium 8.8 mg/dl (8.6-10.3) 02/27/24 05:29 Phosphorus 3.2 mg/dl (2.5-4.9) 02/27/24 05:29 Magnesium 2.1 mg/dl (1.7-2.4) 02/27/24 05:29 Total Bilirubin 0.6 mg/dl (0.2-1.0) 02/26/24 09:32 AST 12 U/L (13-39) L 02/26/24 09:32 ALT 16 U/L (7-52) 02/26/24 09:32 Alkaline Phosphatase 43 U/L (34-104) 02/26/24 09:32 Troponin I High Sens 49.8 pg/ml (0-14) H 02/26/24 18:11 Total Protein 6.5 gm/dl (6.0-8.3) 02/26/24 09:32 Albumin 4.0 gm/dl (3.4-5.0) 02/26/24 09:32 Globulin 2.5 gm/dl (2.5-4.0) 02/26/24 09:32 Albumin/Globulin Ratio 1.6 (0.9-2) 02/26/24 09:32 TSH 1.917 uIu/ml (0.300-4.500) 02/26/24 09:32 Impressions Chest X-Ray 02/26/24 09:27 SINGLE VIEW CHEST CLINICAL HISTORY: Atypical chest pain. FINDINGS: A PA chest radiograph is compared to study dated 03/30/2022 when correlated with chest CT dated 06/27/2023. A 2-lead cardiac pacemaker is unchanged in position and partially obscures the left upper chest. The heart is enlarged. The pulmonary vasculature is noncongested. Chronic interstitial thickening is similar to previous. There is mild bibasilar scarring/atelectasis. The lungs and pleural spaces are otherwise clear. No pneumothorax is seen. The skeletal structures are osteopenic. The bony thorax is grossly intact. IMPRESSION: 1. Cardiomegaly and cardiac pacemaker without radiographic evidence of congestive failure. 2. No airspace consolidation or pleural effusion is identified. ACT 112: Negative or not required by law. Electronically signed by: Asif Bruce M.D. 02/26/2024 11:09 AM Hospital Course (1) Atrial fibrillation with rapid ventricular response: (2) Hypertension: (3) Hypothyroidism: (4) Hyperlipidemia: (5) Left bundle branch block: (6) CAD in [place] artery: (7) Hypokalemia: (8) PMR (polymyalgia rheumatica): (9) CAD (coronary artery disease): (10) Depression: (11) Tachy-luis syndrome: (12) Cardiac pacemaker in situ: Plan 71 y/o F presents to the [facility] as recommended by her Florist Designer TRAVIS as she was noted to be in AF RVR. Pt has known AF and takes Eliquis; reporting compliance. She is prescribed metoprolol ER 25 mg and takes it every afternoon which she took last night and then took the additional dose as recommended this morning.Pacemaker that was inserted for tachybradycardia syndrome in October 2022. In the ED during pacemaker interrogation the pacemaker was unable to detect flutter. [employer] proceeded to come in and was at bedside and after discussion with cardiology agreed to turn on atrial pacing therapies. She was just recently diagnosed with PMR and has not on high-dose p.o. Prednisone for the last 6 weeks. She is currently taking 40 mg p.o. twice daily with a dose reduction to 35 mg starting 02/26. Last ECHO 03/15/2021 LV wall thickness mildly concentric, septal wall motion abnormal consistent with LBBB, grade 1 diastolic dysfunction, mild MR/TR In the ED she was given Metoprolol 5 mg IV once. Her HR was 150's initially. Troponin initially 33.5--> 44.8 suspect ischemic demand related to RVR. Patient will be admitted for further evaluation management of her atrial flutter. [employer] to make atrial pacing therapy adjustments on settings at bedside. Will administer metoprolol tartrate 25 mg p.o. 3 times daily, replace potassium, trend troponin, formal cardiology consult placed, monitor sugars due to increased prednisone intake for new diagnosis of PMR. If no improvement with atrial pacing therapies consider diltiazem. Afib RVR: [id number] score 5; female, age, CAD history, HTN, and DM -ECHO: Left ventricular systolic function is normal. EF 55 to 60%. Left atrium is mildly dilated. Mild mitral and tricuspid regurgitation. -Normal TSH Monitor and replete electrolytes as needed Pacemaker settings adjusted Appreciate cardiology input Metoprolol succinate dose increased to 50 mg every morning, 25 mg every afternoon Spontaneously converted to sinus Advised to follow-up with cardiology on discharge Hypokalemia: Replete and monitor PMR: Newly diagnosed generalized joint pain Follows with Rheumatology Started on Prednisone 40 mg PO daily; currently on taper course --35 mg daily Taper dose pack to be completed 04/06 per [facility] E[facility] and with pt Monitor sugars TBS: Status post dual-lead pacemaker: Chronic Placed October 2022 Pacer interrogation was not revealing flutter [employer] to make atrial pacing adjustments at bedside CAD: Chronic Nonobstructive medically managed by cath 10/2006 Mid LAD 30%; repeat cath 09/2011 25% mid LAD stenosis Known LBBB INEZ: Chronic Wears CPAP nightly Continue CPAP hs DM2: Chronic Takes Metformin;hold while inpatient Place on SSI; higher stress dosing due to steroids with PMR HbA1c 7.0 HTN: Chronic Takes HCTZ; continue HLD: Chronic Takes atorvastatin; continue Hypothyroidism: Chronic Takes levothyroxine; continue Last TSH 01/06/2024 3.42 Code Status: Full Code VTE Px: Eliquis Disposition Home Total Time Total Time Spent Total Time Spent (In Minutes): 56 minutes Discharge Plan Discharge Items Patient Disposition: Home - Self-Care Reason For Visit: AF RVR Discharge Diagnosis: Atrial fibrillation with rapid ventricular response Hypokalemia Activity: Per Instructions section Exercise/Sports: Wait until after follow-up appointment Non-emergency contact: Primary Care Provider and Florist Designer Call non-emergency contact if: you have any medication questions, your symptoms worsen, your pain is concerning for you and you have a fever Follow-up/Referrals: Dylan Barros MD [Primary Care Provider] - (Date & Time 03/02/2024 1:00 PM Provider Melita Crespo MD [facility] ) Diet: Carb Consistent or DM2 and Heart Healthy Diet Texture: Easy to Chew Addtl Attending Provider Instructions: Follow-up with your primary care physician in 1 week Follow-up with your caterpillar mechanic Dr. Quesada as advised -- Obtain blood test (basic metabolic panel) in 1 week to monitor your potassium levels and follow-up with your physician for further recommendations. Seek immediate medical attention if your symptoms reoccur or worsen Please take all medications as instructed on discharge list below. Please call if you have any questions or problems. You can reach a [facility] hospitalist on duty at [facility] 24 hours a day by calling [phone] Pending Studies at Discharge: No Stand-Alone Forms: My [facility] Health, Smoking Cessation Medications and DC Order Prescriptions: New metoprolol succinate 50 mg tablet extended release 24 hr 50 mg PO QAM Qty: 30 1RF Continued (DME) OneTouch Ultra Blue Test Strip Strip See Rx Instructions .ROUTE .MEDSUPPLY Qty: 100 5RF Rx Instructions: Please test once in the morning and once throughout day sertraline 100 mg tablet 150 mg PO QAM Qty: 45 11RF nitroglycerin 0.4 mg tablet, sublingual 0.4 mg SL Q5M PRN (Reason: Chest Pain) Metamucil 3.4 gram/5.4 gram powder 1 tbs PO DAILY PRN (Reason: Constipation) cholecalciferol (vitamin D3) 25 mcg (1,000 unit) capsule 2,000 unit PO QAM multivitamin Tablet 1 tab PO QAM levothyroxine 50 mcg tablet 50 mcg PO DAILY Qty: 30 5RF Rx Instructions: DOSE CHANGE 04/04/22 Take 1.5 tablets every other day alternating with 1 tablet daily atorvastatin 20 mg tablet 20 mg PO HS lorazepam 1 mg Tablet 1 mg PO Q8H PRN (Reason: Anxiety) potassium chloride 20 mEq tablet,ER particles/crystals 20 meq PO QAM metoprolol succinate 25 mg tablet extended release 24 hr 25 mg PO QPM Rx Instructions: Pt usually takes this medication in the evening, but took a dose this morning due to being in Afib. metformin 500 mg tablet extended release 24 hr 500 mg PO QPM trazodone 50 mg tablet 25 mg PO QPM PRN (Reason: Sleep) Neilmed Sinus Rinse Complete Packet With Rinse Device See Rx Instructions .ROUTE .COMPLEX Rx Instructions: Use to rinse the nostrils once daily prednisone 20 mg tablet 40 mg PO BID Rx Instructions: complex dosin02/27/24 take 35 mg PO daily x 2 weeks. Eliquis 5 mg tablet 5 mg PO BID Held hydrochlorothiazide 25 mg tablet 25 mg PO DAILY Hold Instructions: Hold for 2 days and then resume Discharge Orders: Discharge Order (Routine); Ordered 02/27/24 Ordered By: Elpidio Wilson/Other Patient Handouts: Managing Type 2 Diabetes Admission Data Admit Date/Time: 02/26/24 14:11 Attending Provider: Elpidio Sheffield Admit Provider: Cristopher Pollack Primary Care Provider: Dylan Barros Other Providers: Cristopher Pollack; Richard Quesada
--- OUTSIDE RECORDS SUMMARY | 2024-02-28 11:54 | External Medical Summary | Summary of Care ---
Author Name Unknown Organization [facility] Address [address] [place] [address] Phone [phone] Care Team Providers Care Coordinating Producer Name Role Phone Dylan Barros MD Primary Care Provider [phone]- [phone] Reason for Visit * Reason Comments eRx-Medication Refill Encounter Details Date Type Department Care Team (Late st Contact Info) Description 02/18/2024 Refill Cardiology, [facility] [address] [place] [address] Dai Scott PA-C [address] [facility] [place] [address] Paroxysmal atrial fibrillation (HCC); HTN, goal below 130/80 Allergies Active Allergy Reactions Criticality Noted Date Comments Albuterol High 04/04/2022 Other reaction(s): racing heart Citalopram 04/04/2022 Other reaction(s): Unknown Sulfa Antibiotics Hives Medium 07/07/2000 documented as of this encounter (statuses as of 02/18/2024) Medications Medication Sig Dispensed Refills Start Date End Date Status MULTIVITAMINS PO TABS 1 tablet daily 0 Active ASPIRIN 81 MG PO TABS Take by mouth at bedtime. 0 Active NITROGLYCERIN 0.[address] under the tongue. 25 Tab 11 10/04/2011 Active VITAMIN D3 1000 UNITS PO TABS 2 TABLETS DAILY 0 02/07/2014 Active LORazepam (ATIVAN) 1 MG Tablet One tablet every 8 hours as needed 0 11/15/2015 Active CPAP every night at bedtime. 0 Active Docusate Sodium 100 MG Oral Capsule Take 1 Capsule by mouth every evening. 0 Active traZODone HCl 50 MG Oral Tablet (Desyrel)Indicati ons:Insomnia, unspecified type Take by mouth 0.5 Tablets before bedtime. 90 Tablet 1 06/04/2022 Active Additional Information Patient not taking.Reported on 12/31/2023 OneTouch Ultra Blue In Vitro Strip (Glucose Blood) Use as directed daily . 100 Strip 3 08/21/2022 Active Sertraline HCl 100 MG Oral Tablet (Zoloft)Indicatio ns:Recurrent major depressive disorder, in partial remission (HCC) Take 1.5 Tablets by mouth in the morning. 135 Tablet 3 02/24/2023 Active metFORMIN HCl ER 500 MG Oral Tablet Extended Release 24 Hour (Glucophage XR)Indications:Ty pe 2 diabetes mellitus with hemoglobin A1c goal of less than 7.0% (HCC) Take 1 Tablet by mouth daily. 90 Tablet 3 06/19/2023 Active Additional Information Patient taking differently:500 mg OralHS, Reported on 12/31/2023 Apixaban 5 MG Oral Tablet (Eliquis)Indicati ons:Paroxysmal atrial fibrillation (HCC) Take 1 Tablet by mouth in the morning and 1 Tablet before bedtime. 180 Tablet 3 08/25/2023 Active Metoprolol Succinate ER 25 MG Oral Tablet Extended Release 24 Hour (toPROL XL)Indications:Pa roxysmal atrial fibrillation (HCC) Take 1 Tablet by mouth in the morning. 90 Tablet 3 08/25/2023 Active Additional Information Patient taking differently:25 mg Oral Daily(AM),TAKES IN PM, Reported on 09/29/2023 hydroCHLOROthiazi de 25 MG Oral Tablet (Hydrodiuril)Georgina cations:Chronic coronary artery disease,HTN, goal below 130/80 Take 1 Tablet by mouth in the morning. 90 Tablet 3 10/21/2023 Active Levothyroxine Sodium 50 MCG Oral Tablet (Synthroid)Indica tions:Hypothyroid ism, unspecified type Take 1 and 1/2 tablets daily alternating with 1 tablet daily (at least 30 min prior to breakfast or other meds) 135 Tablet 2 12/08/2023 Active predniSONE 10 MG Oral Tablet (Deltasone) Take 2 tabs by mouth daily and taper as directed 60 Tablet 0 01/09/2024 Active predniSONE 20 MG Oral Tablet (Deltasone)Indica tions:PMR (polymyalgia rheumatica) (HCC) Take 2 Tablets by mouth in the morning. 60 Tablet 1 02/05/2024 04/05/20 24 Active Atorvastatin Calcium 20 MG Oral Tablet (Lipitor)Indicati ons:Dyslipidemia, goal LDL below 70 TAKE 1 TABLET BY MOUTH ONCE DAILY IN THE MORNING 90 Tablet 3 02/10/2024 Active Potassium Chloride Tish ER 20 MEQ Oral Tablet Extended ReleaseIndication s:Paroxysmal atrial fibrillation (HCC),HTN, goal below 130/80 TAKE 1 TABLET BY MOUTH EVERY MORNING 90 Tablet 3 02/18/2024 Active Potassium Chloride Tish ER 20 MEQ Oral Tablet Extended ReleaseIndication s:Paroxysmal atrial fibrillation (HCC),HTN, goal below 130/80 Take 1 Tablet by mouth in the morning. 90 Tablet 3 05/22/2023 02/18/20 24 Discontinued documented as of this encounter (statuses as of 02/18/2024) Active Problems Problem Noted Date Diagnosed Date Recurrent major depressive disorder, in partial remission 12/27/2022 SSS (sick sinus syndrome) 11/18/2022 JEFF (generalized anxiety disorder) 08/21/2022 Panic disorder without agoraphobia 08/21/2022 Multiple lung nodules 05/03/2021 Microcytic anemia 03/05/2021 Bradycardia, sinus 03/05/2021 Type 2 diabetes mellitus wit h hemoglobin A1c goal of less than 7.0% 09/12/2020 Paroxysmal atrial fibrillation 04/05/2020 LBBB (left bundle branch block) 09/03/2015 Hypothyroidism 03/26/2014 INEZ on CPAP 02/14/2012 Overview: 02/05/12 AHI was 17.1 DME: [facility], [place] Titration study 04/27/12 set pressure of 8 cm HTN, goal below 130/80 01/09/2011 Chronic coronary artery disease 09/15/2010 Overview: Cath 2007 - 30% mid LAD stenosis Dyslipidemia, goal LDL below 70 09/15/2010 documented as of this encounter (statuses as of 02/18/2024) Resolved Problems Problem Noted Date Diagnosed Date Resolved Date Obstructive sleep apnea 11/28/201101/26 Overview: AHI 8..2 in April 2008 documented as of this encounter (statuses as of 02/18/2024) Immunizations Name Administration Dates Next Due COVID-19 mRNA, LNP-s, No Pre serve, 2-Dose Series (Moderna) 12/24/2020,11/19/2020 COVID-19, mRNA, LNP-s, PF, B ooster, 100mcg/0.5mg (Moderna) 08/18/2021 Covid-19, Mrna, Lnp-s, Pf, B ivalent, 30 Mcg, IM, 12 yrs and above (Spokeable) 08/01/2022 DT - Diptheria/Tetanus (PEDS) 06/06/2005 Pneumococcal Conjugate Vacc, 13 Valent (Prevnar) 12/13/2015 Pneumococcal Polysaccharide PPV23 (Pneumovax) 08/22/2014 Seasonal Influenza, PF, 6 M & above, IM , (FluLaval or Fluzone) 09/14/2018 Seasonal Influenza, Quadriva lent Hd (Fluzone Hd) 07/04/2023,06/28/2022 Seasonal Influenza, Quadriva lent, No Preserve, IM 07/09/2021,09/04/2020,09/10/2019,09/14,09/11/2018,10/07/2017,09/09/2016 ,09/09/2016,08/30/2015,08/22/2014,07/27,09/09/2005,09/08/2003, 2 Seasonal Influenza, Split, I IV3, With Preserve, Inj 08/13/2013 TDAP (age 10 and older)(Boostrix) 07/18/2015 Varicella Zoster Vaccine (Adult) 06/14/2015 Zoster Vaccine Recombinant (Shingrix) 07/16/2023 ,12/27/2022 documented as of this encounter Social History Tobacco Use Types Packs/Day Years Used Date Smoking Tobacco: Never Smokeless Tobacco: Never Alcohol Use Standard Drinks/Week Comments Not Currently 0 (1 standard drink = 0.6 oz pur e alcohol) PHQ-2 Answer Date Recorded PHQ Adult Total Score 0 05/07/2022 Hunger Vital Sign Answer Date Recorded Within the past 12 months, y ou worried that your food would run out before you got the money to buy more. Never true 12/26/19 23 Within the past 12 months, t he food you bought just didn't last and you didn't have money to get more. Never true 12/25/2022 Sex and Gender Information Value Date Recorded Sex Assigned at Female 06/03/2022 9:57 PM EDT Gender Identity Female 06/03/2022 9:57 PM EDT Sexual Orientation Straight 06/03/2022 9: 57 PM EDT Job Start Date Occupation Industry Not on file Not on file Not on file documented as of this encounter Miscellaneous Notes * Telephone Encounter - Dai Scott PA-C - 02/18/2024 1:21 PM EDT Signed Prescriptions: Disp Refills Potassium Chloride Tish ER 20 MEQ Oral Tab*90 Tab*3 Sig: TAKE 1 TABLET BY MOUTH EVERY MORNING Authorizing Provider: DAI SCOTT * Telephone Encounter - Peyton Bennett CMA - 02/18/2024 10:39 AM EDTPending Prescriptions: Disp Refills Potassium Chloride Tish ER 20 MEQ Oral Tab*90 Tab*3 Sig: TAKE 1 TABLET BY MOUTH EVERY MORNING * Telephone Encounter - Peyton Bennett CMA - 02/18/2024 10:39 AM EDT Did you pend patient's preferred pharmacy and medication before forwarding?yes Pharmacy: [facility] [address] Pending Prescriptions: Disp Refills Potassium Chloride Tish ER 20 MEQ Oral Ta*90 Tab*3 Sig: TAKE 1 TABLET BY MOUTH EVERY MORNING Last Visit: 09/29/2023 (in office), Visit date not found (telemedicine) Next Visit: 04/27/2024 If no future appointments scheduled, and last appointment is greater than a year ago, please schedule patient for a follow-up appointment Last date the medication was ordered: 05-22-2023 Is this request for a controlled substance?No Urine Drug Screen:No results found for this or any previous visit. Patient Phone Numbers Labs: Lab Results Component Value Date/Time CREAT 0.7 01/06/2024 02:40 PM CREAT 0.8 07/11/2020 08:32 AM POTASSIUM 4.4 01/06/2024 02:40 PM POTASSIUM 4.3 07/11/2020 08:32 AM TSH 3.42 01/06/2024 02:40 PM TSH 2.15 04/19/2020 12:21 PM LDLCALC 57 07/08/2023 08:30 AM LDLCALC 51 07/11/2020 08:32 AM LDLDIRECT NOT APPLICABLE 07/11/2020 08:32 AM ALT 19 01/06/2024 02:40 PM ALT 14 07/11/2020 08:32 AM HGBA1C 6.1 (H) 07/08/2023 08:30 AM HGBA1C 6.4 (A) 07/09/2021 12:00 AM documented in this encounter Plan of Treatment Upcoming Encounters Date Type Department Care Team (Late st Contact Info) Description 02/27/2024 9:00 AM EDT Laboratory Laboratory, [facility] [address] [place] [id number] [facility] [address] [place] [address] 04/01/2024 11:00 AM EDT Telemedicine Rheumatology, [facility] [address] [place] [address] Tessa Duque, [address] [place] [facility] [place] [address] 04/27/2024 8:30 AM EDT Office Visit Cardiology, [facility] [address] [place] [address] Dai Scott PA-C [address] [place] [address] Health Maintenance Due Date Last Done Comments Cologuard 1995 Sigmoidoscopy 1995 Fecal Occult Blood Test 07/07/2001 07/07/2000 Pneumococcal Vaccine: 65+ Years (3 of 3 - PPSV23 or PCV20) 08/22/2019 12/13/2015, 08/22/2014 COVID-19 Vaccine ( season) 2023 08/01/2022, 08/18/2021, 12/24/2020, Additional history exists Diabetic Foot Exam 06/28/2023 06/28/2022 HbA1c 01/06/2024 07/08/2023, 10/29, 06/04/2022, Additional history exists Albumin/Creatinine Ratio 07/08/2024 07/08/2023, 08/0 06/2022 Diabetic Eye Exam 09/15/2024 09/15/2023, 08/29/2022 GFR 01/05/2025 01/06/2024, 06/27, 11/08/2022, Additional history exists TSH 01/05/2025 01/06/2024, 06/27, 12/27/2022, Additional history exists Mammogram 01/19/2025 01/20/2024, 12/26, 07/15/2001 DXA Scan 04/30/2025 04/30/2018 DTaP,Tdap,and Td Vaccines (3 - Td or Tdap) 07/18/2025 07/18/2015, 06/06/2005 Colonoscopy 01/14/2034 01/15/2024, 12/26, 02/26/2021 Colorectal Cancer Screening 01/14/2034 Influenza Vaccine (FLU shot) Completed 05/2023, 06/28/2022, 07/09/2021, Additional history exists Zoster Vaccines Completed 07/16/2023, 12/2022, 06/14/2015 GARDASIL-HPV IMMUNIZATION SERIES Aged Out No longer eligible based on patient's age to complete this topic Hepatitis B Aged Out No longer eligi ble based on patient's age to complete this topic MENINGOCOCCAL (MENACTRA/MENVEO) Aged Out No longer eligible based on patient's age to complete this topic documented as of this encounter Medical Devices Implanted Type Area Steel Fixer Device Identifier Shelf Expiration Date Model / Serial / Lot Lead Pace Selectsecure [id number] - [id number] Implanted:Qty: 1 on 11/18/2022 by Nora Antonio DO at OR [facility] Lead Left: Heart [employer] : CAR 10/18/2024 [id number] / / Description:RV LBBB Lead Novus Bipolar 52cm - [id number] - [id number] Implanted:Qty: 1 on 11/18/2022 by Nora Antonio DO at OR [facility] Lead Left: Heart [employer] : CRM 09/23/2024 5076-52 / [id number] / Description:RA Pacemaker Dana Xt Dr Banks Wrls - [id number] - [id number] Implanted:Qty: 1 on 11/18/2022 by Nora Antonio DO at OR [facility] Pacemaker Left: Chest [employer] 04/09/2024 [id number] / [id number] / Lens Intraoc 26.5 - [id number] - [id number] Implanted:Qty: 1 on 02/23/2019 by Jonas Valentino MD at OR [facility] Right: Eye BAUSCH & LOMB 05/26/2023 [id number] / [id number] / [id number] Lens Intraoc 24.5 - [id number] - [id number] Implanted:Qty: 1 on 03/02/2019 by Jonas Valentino MD at OR [facility] Left: Eye BAUSCH & LOMB 08/26/2023 [id number] / [id number] / [id number] Envelope Antibacterial Tyrx - [id number] Implanted:Qty: 1 on 11/18/2022 by Nora Antonio DO at OR [facility] [employer] : CRM [id number] 08/09/2023 CMR [id number] / / [id number] documented as of this encounter Visit Diagnoses Diagnosis Paroxysmal atrial fibrillation (HCC) Atrial fibrillation HTN, goal below 130/80 Unspecified essential hypertension documented in this encounter Advance Directives Latest Code Status on File Code Status Date Activated Date Inactivated Comments Full Code 04/05/2021 7:37 AM 04/05/2021 4:11 PM This order reflects the patients wishes and were consensually agreed upon. Question Answer Comments Discussion of Advance Directives occurred with: Not Discussed Care Teams Coordinating Producer Relationship Specialty Start Date End Date Dylan Barros MD [address] [place] [address] PCP - General Family Medicine 11/07/23 documented as of this encounter
--- OUTSIDE RECORDS SUMMARY | 2024-02-28 11:55 | External Medical Summary | Summary of Care ---
Author Name Unknown Organization [facility] Address [address] [place] [address] Phone [phone] Care Team Providers Care Grocery Clerk Stocking Name Role Phone Dylan Barros MD Primary Care Provider +1- [phone] Reason for Visit * Reason Onset Date Comments Appointment 01/26/2024 [facility] appointment Encounter Details Date Type Department Care Team (Late st Contact Info) Description 01/26/2024 Telephone Cardiology, [facility] [address] [facility] [place] [address] [facility] [address] [place] [address] Appointment ([facility] appointment ) Allergies Active Allergy Reactions Criticality Noted Date Comments Albuterol High 04/04/2022 Other reaction(s): racing heart Citalopram 04/04/2022 Other reaction(s): Unknown Sulfa Antibiotics Hives Medium 07/07/2000 documented as of this encounter (statuses as of 01/26/2024) Medications Medication Sig Dispensed Refills Start Date [...] Active traZODone HCl 50 MG Oral Tablet (Desyrel)Indication s:Insomnia, unspecified type Take by mouth 0.5 Tablets before bedtime. 90 Tablet 1 06/04/2022 Active Additional Information Patient not taking.Reported on 12/31/2023 OneTouch Ultra Blue In Vitro Strip (Glucose Blood) Use as directed daily . 100 Strip 3 08/21/2022 Active Sertraline HCl 100 MG Oral Tablet (Zoloft)Indications :Recurrent major depressive disorder, in partial remission (HCC) Take 1.5 Tablets by mouth in the morning. 135 Tablet 3 02/24/2023 Active Atorvastatin Calcium 20 MG Oral Tablet (Lipitor)Indication s:Dyslipidemia, goal LDL below 70 Take 1 Tablet by mouth in the morning. 90 Tablet 3 05/15/2023 Active Additional Information Patient taking differently:20 mg Oral Daily(AM),Takes in pm, Reported on 09/29/2023 Potassium Chloride Tish ER 20 MEQ Oral Tablet Extended ReleaseIndications: Paroxysmal atrial fibrillation (HCC),HTN, goal below 130/80 Take 1 Tablet by mouth in the morning. 90 Tablet 3 05/22/2023 Active metFORMIN HCl ER 500 MG Oral Tablet Extended Release 24 Hour (Glucophage XR)Indications:Type 2 diabetes mellitus with hemoglobin A1c goal of less than 7.0% (HCC) Take 1 Tablet by mouth daily. 90 Tablet 3 06/19/2023 Active Additional Information Patient taking differently:500 mg OralHS, Reported on 12/31/2023 Apixaban 5 MG Oral Tablet (Eliquis)Indication s:Paroxysmal atrial fibrillation (HCC) Take 1 Tablet by mouth in the morning and 1 Tablet before bedtime. 180 Tablet 3 08/25/2023 Active Metoprolol Succinate ER 25 MG Oral Tablet Extended Release 24 Hour (toPROL XL)Indications:Paro xysmal atrial fibrillation (HCC) Take 1 Tablet by mouth in the morning. 90 Tablet 3 08/25/2023 Active Additional Information Patient taking differently:25 mg Oral Daily(AM),TAKES IN PM, Reported on 09/29/2023 hydroCHLOROthiazide 25 MG Oral Tablet (Hydrodiuril)Indica tions:Chronic coronary artery disease,HTN, goal below 130/80 Take 1 Tablet by mouth in the morning. 90 Tablet 3 10/21/2023 Active Levothyroxine Sodium 50 MCG Oral Tablet (Synthroid)Indicati ons:Hypothyroidism, unspecified type Take 1 and 1/2 tablets daily alternating with 1 tablet daily (at least 30 min prior to breakfast or other meds) 135 Tablet 2 12/08/2023 Active predniSONE 10 MG Oral Tablet (Deltasone) Take 2 tabs by mouth daily and taper as directed 60 Tablet 0 01/09/2024 Active documented as of this encounter (statuses as of 01/26/2024) Active Problems Problem Noted Date Diagnosed Date [...] 02/05/12 AHI was 17.1 [facility] Titration study 04/27/12 set pressure of 8 cm HTN, goal below 130/80 01/09/2011 Chronic coronary artery disease 09/15/2010 Overview: Cath 2006 - 30% mid LAD stenosis Dyslipidemia, goal LDL below 70 09/15/2010 documented as of this encounter (statuses as of 01/26/2024) Resolved Problems Problem Noted Date Diagnosed Date Resolved Date Obstructive sleep apnea 11/28/201101/26 Overview: AHI 8..2 in April 2008 documented as of this encounter (statuses as of 01/26/2024) Immunizations Name Administration Dates Next Due COVID-19 mRNA, LNP-s, No Pre serve, 2-Dose Series (Moderna) 12/24/2020,11/19/2020 COVID-19, mRNA, LNP-s, PF, B ooster, 100mcg/0.5mg (Moderna) 08/18/2021 Covid-19, Mrna, Lnp-s, Pf, B ivalent, 30 Mcg, IM, 12 yrs and above (Pfizer) 08/01/2022 DT - Diptheria/Tetanus (PEDS) 06/06/2005 Pneumococcal [...] the money to buy more. Never true 03/01/20 23 Within the past 12 months, t [...] encounter Miscellaneous Notes * Telephone Encounter - Priya Mena LPN - 01/26/2024 10:58 AM EDT MyG message sent to patient regarding cancellation of [facility] appointment 01/29/2024. Patient is remotely monitored, in office checks not indicated at this time. documented in this encounter Plan of Treatment Upcoming Encounters Date Type Department Care Team (Late st Contact Info) Description 01/29/2024 10:00 AM EDT Cardiac Studies Cardiology, [facility] [address] [facility] [place] [address] [address] [facility] 132 [facility] [place] [address] Health Maintenance Due Date Last Done Comments Cologuard 1995 Sigmoidoscopy 1995 Fecal Occult Blood Test 07/07/2001 07/07/2000 Pneumococcal Vaccine: 65+ Years (3 of 3 - PPSV23 or PCV20) 08/22/2019 12/13/2015, 08/22/2014 Depression Screening 05/07/2023 05/07/2022 COVID-19 Vaccine ( season) 2023 08/01/2022, 08/18/2021, [...] Additional history exists Zoster Vaccines Completed 07/16/2023, 03/12/2022, 06/14/2015 GARDASIL-HPV IMMUNIZATION SERIES Aged Out No longer eligible based on patient's age to complete this topic Hepatitis B Aged Out No longer eligi ble based on patient's age to complete this topic MENINGOCOCCAL (MENACTRA/MENVEO) Aged Out No longer eligible based on patient's age to complete this topic documented as of this encounter Medical Devices Implanted Type Area Cell Technician Device Identifier Shelf Expiration Date Model / Serial / Lot Lead Pace Selectsecure [id number] - [id number] Implanted:Qty: 1 on 11/18/2022 by Nora Antonio DO at OR [facility] Lead Left: Heart [employer] : CAR 10/18/2024 [id number] / / Description:RV LBBB Lead Novus Bipolar 52cm - [id number] - [id number] Implanted:Qty: 1 on 11/18/2022 by Nora Antonio DO at OR [facility] Lead Left: Heart [employer] : CAR 09/23/2024 5076-52 / [id number] / Description:RA Pacemaker Dongola Xt Dr Jocelyn Wrls - [id number] - [id number] Implanted:Qty: 1 on 11/18/2022 by Nora Antonio DO at OR [facility] Pacemaker Left: Chest [employer] 04/09/2024 [id number] / [id number] / Lens Intraoc 26.5 - [id number] - [id number] Implanted:Qty: 1 on 02/23/2019 by Jonas Valentino MD at OR [facility] Right: Eye BAUSCH & LOMB 05/26/2023 [id number] / [id number] / [id number] Lens Intraoc 24.5 - [id number] - [id number] Implanted:Qty: 1 on 03/02/2019 by Jonas Valentino MD at OR [facility] Left: Eye BAUSCH & LOMB 08/26/2023 [id number] / [id number] / [id number] Envelope Antibacterial Tyrx - [id number] Implanted:Qty: 1 on 11/18/2022 by Nora Antonio DO at OR [facility] [employer] : CRM [id number] 08/09/2023 CMR M6122 / / [id number] documented as of this encounter Advance Directives Latest Code Status on File Code Status Date Activated Date Inactivated Comments Full Code 04/05/2021 7:37 AM 04/05/2021 4:11 PM This order reflects the patients wishes and were consensually agreed upon. Question Answer Comments Discussion of Advance Directives occurred with: Not Discussed Care Teams Grocery Clerk Stocking Relationship Specialty Start Date End Date Dylan Barros MD [address] [place] [address] PCP - General Family Medicine 11/07/23 documented as of this encounter
--- OUTSIDE RECORDS SUMMARY | 2024-02-28 11:55 | External Medical Summary | Summary of Care ---
Author Name Unknown Organization [facility] Address [address] [place] [address] Phone [phone] Care Team Providers Care Process Manager Name Role Phone Dylan Barros MD Primary Care Provider +1- [phone] Encounter Details Date Type Department Care Team (Late st Contact Info) Description 02/09/2024 Orders Only PATIENT PORTAL DO NOT DELETE THIS DEPT USED BY [place] GIANG [id number] Allergies Active Allergy Reactions Criticality Noted Date Comments Albuterol High 04/04/2022 Other reaction(s): racing heart Citalopram 04/04/2022 Other reaction(s): Unknown Sulfa Antibiotics Hives Medium 07/07/2000 documented as of this encounter (statuses as of 02/09/2024) Medications Medication Sig Dispensed Refills Start Date [...] Additional Information Patient not taking.Reported on 12/31/2023 [employer] Ultra Blue In Vitro Strip (Glucose Blood) [...] 01/09/2024 Active predniSONE 20 MG Oral Tablet (Deltasone)Indicati ons:PMR (polymyalgia rheumatica) (HCC) Take 2 Tablets by mouth in the morning. 60 Tablet 1 02/05/2024 04/05/2024 Active documented as of this encounter (statuses as of 02/09/2024) Active Problems Problem Noted Date Diagnosed Date [...] 02/05/12 AHI was 17.1 DME: [facility] Titration study 04/27/12 set pressure of 8 cm HTN, goal below 130/80 01/09/2011 Chronic coronary artery disease 09/15/2010 Overview: Cath 2006 - 30% mid LAD stenosis Dyslipidemia, goal LDL below 70 09/15/2010 documented as of this encounter (statuses as of 02/09/2024) Resolved Problems Problem Noted Date Diagnosed Date Resolved Date Obstructive sleep apnea 11/28/201101/26 Overview: AHI 8..2 in April 2008 documented as of this encounter (statuses as of 02/09/2024) Immunizations Name Administration Dates Next Due COVID-19 mRNA, LNP-s, No Pre serve, 2-Dose Series (Moderna) 12/24/2020,11/19/2020 COVID-19, mRNA, LNP-s, PF, B ooster, 100mcg/0.5mg (Moderna) 08/18/2021 Covid-19, Mrna, Lnp-s, Pf, B ivalent, 30 Mcg, IM, 12 yrs and above ([employer]ay[employer]) 08/01/2022 DT - Diptheria/Tetanus (PEDS) 06/06/2005 Pneumococcal [...] on file documented as of this encounter Plan of Treatment Upcoming Encounters Date Type Department Care Team (Late st Contact Info) Description 04/01/2024 11:00 AM EDT Telemedicine Rheumatology, [place] [address] [place] [address] Tessa Duque, [address] [place] [address] Health Maintenance Due Date Last Done Comments [...] this encounter Medical Devices Implanted Type Area Residential Treatment Staff Device Identifier Shelf Expiration Date Model / Serial / Lot Lead Pace Selectsecure 3830-69 - [id number] Implanted:Qty: 1 on 11/18/2022 by Nora Antonio DO at OR [facility] Lead Left: Heart [employer] : CRM 10/18/2024 [id number] / / Description:RV LBBB Lead Novus Bipolar 52cm - [id number] - [id number] Implanted:Qty: 1 on 11/18/2022 by Nora Antonio DO at OR [facility] Lead Left: Heart [employer] : CRM 09/23/2024 5076-52 / [id number] / Description:RA Pacemaker Dana Xt Dr Banks ls - [id number] - [id number] Implanted:Qty: 1 on 11/18/2022 by Nora Antonio DO at OR [facility] Pacemaker Left: Chest [employer] 04/09/2024 [id number] / [id number] / Lens Intraoc 26.5 - [id number] - [id number] Implanted:Qty: 1 on 02/23/2019 by Jonas Valentino MD at OR [facility] Right: Eye BAUSCH & LOMB 05/26/2023 [id number] / [id number] Lens Intraoc 24.5 - [id number] - [id number] Implanted:Qty: 1 on 03/02/2019 by Jonas Valentino MD at OR [facility] Left: Eye BAUSCH & LOMB 08/26/2023 [id number] / [id number] / [id number] Envelope Antibacterial Tyrx - [id number] Implanted:Qty: 1 on 11/18/2022 by Nora Antonio DO at OR [facility] [employer] : CRM [id number] 08/09/2023 [facility] [id number] / / [id number] documented as of this encounter Advance Directives Latest Code Status on File Code Status Date Activated Date Inactivated Comments Full Code 04/05/2021 7:37 AM 04/05/2021 4:11 PM This order reflects the patients wishes and were consensually agreed upon. Question Answer Comments Discussion of Advance Directives occurred with: Not Discussed Care Teams Process Manager Relationship Specialty Start Date End Date [facility] Barros [facility] [address] [facility] [address] PCP - General Family Medicine 11/07/23 documented as of this encounter
--- OUTSIDE RECORDS SUMMARY | 2024-02-28 11:55 | External Medical Summary | Summary of Care ---
Author Name Unknown Organization [facility] Address [address] [place] [address] Phone [phone] Care Team Providers Care Potato Spotter Name Role Phone Dylan Barros MD Primary Care Provider +1- [phone] Encounter Details Date Type Department Care Team (Late st Contact Info) Description 02/17/2024 Result Scan Unspecified Department Vitaly Webster MD [address] [place] [address] <No scans attached> Allergies Active Allergy Reactions Criticality Noted Date Comments Albuterol High 04/04/2022 Other reaction(s): racing heart Citalopram 04/04/2022 Other reaction(s): Unknown Sulfa Antibiotics Hives Medium 07/07/2000 documented as of this encounter (statuses as of 02/17/2024) Medications Medication Sig Dispensed Refills Start Date [...] Additional Information Patient not taking.Reported on 12/31/2023 [employer]law Blue In Vitro Strip (Glucose Blood) Use as directed daily . 100 Strip 3 08/21/2022 Active Sertraline HCl 100 MG Oral Tablet (Zoloft)Indications :Recurrent major depressive disorder, in partial remission (HCC) Take 1.5 Tablets by mouth in the morning. 135 Tablet 3 02/24/2023 Active Potassium Chloride Tish ER 20 MEQ [...] morning. 60 Tablet 1 02/05/2024 04/05/2024 Active Atorvastatin Calcium 20 MG Oral Tablet (Lipitor)Indication s:Dyslipidemia, goal LDL below 70 TAKE 1 TABLET BY MOUTH ONCE DAILY IN THE MORNING 90 Tablet 3 02/10/2024 Active documented as of this encounter (statuses as of 02/17/2024) Active Problems Problem Noted Date Diagnosed Date [...] as of this encounter (statuses as of 02/17/2024) Resolved Problems Problem Noted Date Diagnosed Date Resolved Date Obstructive sleep apnea 11/28/201101/26 Overview: AHI 8..2 in April 2008 documented as of this encounter (statuses as of 02/17/2024) Immunizations Name Administration Dates Next Due COVID-19 [...] Description 02/27/2024 9:00 AM EDT Laboratory Laboratory, [facility] [address] [facility] [place] [address] [facility] [address] [facility] [place] [address] 04/01/2024 11:00 AM EDT Telemedicine Rheumatology, [place] [address] [place] [address] Tessa Duque [address] [place] [address] 04/27/2024 8:30 AM EDT Office Visit Cardiology, [facility] [address] [facility] [place] [address] Nicole Severino PA-C [address] [facility] [place] [address] Health Maintenance Due Date Last Done Comments [...] this encounter Medical Devices Implanted Type Area Yarn Bleaching Machine Operator Device Identifier Shelf Expiration Date Model / Serial / Lot Lead Pace Selectsecure 3830-69 - [id number] Implanted:Qty: 1 on 11/18/2022 by Nora Antonio DO at OR [facility] Lead Left: Heart [employer] : CAR 10/18/2024 [id number] / / Description:RV LBBB Lead Novus Bipolar 52cm - [id number] - [id number] Implanted:Qty: 1 on 11/18/2022 by Nora Antonio DO at OR [facility] Lead Left: Heart [employer] : CAR 09/23/2024 5076-52 / [id number] / Description:RA Pacemaker [place] Xt Dr Jocelyn ls - [id number] - [id number] Implanted:Qty: 1 on 11/18/2022 by Nora Antnoio DO at OR [facility] Pacemaker Left: Chest [employer] 04/09/2024 [id number] / [id number] / Lens Intraoc 26.5 - [id number] - [id number] Implanted:Qty: 1 on 02/23/2019 by Jonas Valentino MD at OR [facility] Right: Eye BAUSCH & LOMB 05/26/2023 [id number] / [id number] / [id number] Lens Intraoc 24.5 - [id number] - [id number] Implanted:Qty: 1 on 03/02/2019 by Jonas Valentino MD at OR [facility] Left: Eye BAUSCH & LOMB 08/26/2023 [id number] / [id number] / [id number] Envelope Antibacterial Tyrx - [id number] Implanted:Qty: 1 on 11/18/2022 by Nora Antonio DO at OR [facility] [employer] : CRM [id number] 08/09/2023 [facility] [id number] / / [id number] documented as of this encounter Procedures Procedure Name Priority Date/Time Associated Diagnosis Comments CARDIOLOGY SCANNED RESULT 02/17/2024 documented in this encounter Results * CARDIOLOGY SCANNED RESULT (02/17/2024) 02/17/2024 Vitaly Webster MD OTHER documented in this encounter Advance Directives Latest Code Status on File Code Status Date Activated Date Inactivated Comments Full Code 04/05/2021 7:37 AM 04/05/2021 4:11 PM This order reflects the patients wishes and were consensually agreed upon. Question Answer Comments Discussion of Advance Directives occurred with: Not Discussed Care Teams Potato Spotter Relationship Specialty Start Date End Date Dylan Barros MD [address] [place] [facility] [place] [address] PCP - General Family Medicine 11/07/23 documented as of this encounter
--- OUTSIDE RECORDS SUMMARY | 2024-02-28 11:55 | External Medical Summary | Summary of Care ---
Author Name Unknown Organization [facility] Address [address] [place] [address] Phone [phone] Care Team Providers Care Non Food Receiving Clerk Name Role Phone Dylan Barros MD Primary Care Provider +1- [phone] Reason for Referral * Evaluate & Treat - Unlimited Visits (Within 30 days (routine)) - Pending Review Specialty Diagnoses / Procedures Referred By Raiza dsouza Referred To Contact Rheumatology Diagnoses PMR (polymyalgia rheumatica) ([facility]) Dylan Barros MD [address] [place] [address] Referral ID Status Reason Start Date Expiration Date Visits Requested Visits Authorized [id number] Pending Review Specialty Services Required 01/28/2024 999 999 Question Answer Referral Priority Within 30 days (routine) Where should this appointment be scheduled? [facility] Reason for referral: Other Conditions Reason for Visit * Reason Onset Date Comments Referral 01/27/2024 Encounter Details Date Type Department Care Team ([facility] st Contact Info) Description 01/27/2024 Telephone [facility] [address] [place] [address] Dylan Barros MD [address] [place] [address] Referral Allergies Active Allergy Reactions Criticality Noted Date Comments Albuterol High 04/04/2022 Other reaction(s): racing heart Citalopram 04/04/2022 Other reaction(s): Unknown Sulfa Antibiotics Hives Medium 07/07/2000 documented as of this encounter (statuses as of 01/29/2024) Medications Medication Sig Dispensed Refills Start Date [...] as of this encounter (statuses as of 01/29/2024) Active Problems Problem Noted Date Diagnosed Date [...] AHI was 17.1 DME: [facility] [place] Titration study 04/27/12 set pressure of 8 cm HTN, goal below 130/80 01/09/2011 Chronic coronary artery disease 09/15/2010 Overview: Cath 2006 - 30% mid LAD stenosis Dyslipidemia, goal LDL below 70 09/15/2010 documented as of this encounter (statuses as of 01/29/2024) Resolved Problems Problem Noted Date Diagnosed Date Resolved Date Obstructive sleep apnea 11/28/201101/26 Overview: AHI 8..2 in April 2008 documented as of this encounter (statuses as of 01/29/2024) Immunizations Name Administration Dates Next Due COVID-19 mRNA, LNP-s, No Pre serve, 2-Dose Series (Moderna) 12/24/2020,11/19/2020 COVID-19, mRNA, LNP-s, PF, B ooster, 100mcg/0.5mg (Moderna) 08/18/2021 Covid-19, Mrna, Lnp-s, Pf, B ivalent, 30 Mcg, IM, 12 yrs and above ([employer]) 08/01/2022 DT - Diptheria/Tetanus (PEDS) 06/06/2005 Pneumococcal [...] encounter Miscellaneous Notes * Telephone Encounter - Sara Frye OSA - 01/29/2024 9:32 AM EDT Done. 01/29/2024 * Telephone Encounter - Sara Frye OSA - 01/29/2024 9:14 AM EDT MyG sent to schedule. 01/29/2024 * Telephone Encounter - Dylan Barros MD - 01/28/2024 5:52 PM EDT signed * Telephone Encounter - Winter Shaw OSA - 01/27/2024 12:05 PM EDT Has the patient been seen for this problem? (Y/N)?: yes If No, an appt needs to be scheduled before a referral will be placed (exception: proceed with referral request if referral request is for a yearly routine appointment with speciality) Patient Name: Ángel Kim Patient Primary care provider: Dylan Barros MD Does this need to be an insurance referral (Y/N)?: yes If Yes, does the insurance referral need to be placed into the [facility] system? Name of preferred specialist: n/a Type of specialist: rheumatology Location of specialist: [facility] Phone #: n/a Specialist's Fax #: [phone] Reason for visit: PMR Date of visit: n/a documented in this encounter Plan of Treatment Upcoming Encounters Date Type Department Care Team (Late st Contact Info) Description 02/05/2024 1:20 PM EDT [facility] [address] [place] [address] Tessa Duque DO [address] [place] [address] Scheduled Referrals Name Type Priority Associated Diagnoses Order Schedule RHEUMATOLOGY REFERRAL OP Referral Within 30 days (routine) PMR (polymyalgia rheumatica) (HCC) Ordered: 01/28/2024 Health Maintenance Due Date Last Done Comments Cologuard 1995 Sigmoidoscopy 1995 Fecal Occult Blood Test 07/07/2001 07/07/2000 Pneumococcal Vaccine: 65+ Years (3 of 3 - PPSV23 or PCV20) 08/22/2019 12/13/2015, 08/22/2014 Depression Screening 05/07/2023 05/07/2022 COVID-19 Vaccine (2022- season) 2023 08/01/2022, 08/18/2021, 12/24/2020, Additional history [...] this encounter Medical Devices Implanted Type Area Sheetmetal Trades Worker Device Identifier Shelf Expiration Date Model / Serial / Lot Lead Pace Selectsecure 3830-69 - [id number] Implanted:Qty: 1 on 11/18/2022 by Nora Antonio DO at OR [facility] Lead Left: Heart [employer] : CAR 10/18/2024 [id number] / / Description:RV LBBB Lead Novus Bipolar 52cm - [id number] - [id number] Implanted:Qty: 1 on 11/18/2022 by Nora Antonio DO at OR [facility] Lead Left: Heart [employer] : CAR 09/23/2024 5076-52 / [id number] / Description:RA Pacemaker Dana Xt Dr Banks Wrls - [id number] - [id number] Implanted:Qty: 1 on 11/18/2022 by Nora Antonio DO at OR [facility] Pacemaker Left: Chest [employer] 04/09/2024 W1DR01 / [id number] / Lens Intraoc 26.5 - [id number] - [id number] Implanted:Qty: 1 on 02/23/2019 by Jonas Valentino MD at OR [facility] Right: Eye BAUSCH & LOMB 05/26/2023 [id number] / [id number] / [id number] Lens Intraoc 24.5 - [id number] - [id number] Implanted:Qty: 1 on 03/02/2019 by Jonas Valentino MD at OR [facility] Left: Eye BAUSCH & LOMB 08/26/2023 [id number] / [id number] / [id number] Envelope Antibacterial Tyrx - [id number] Implanted:Qty: 1 on 11/18/2022 by Nora Antonio DO at OR [facility] [employer] : CRM [id number] 08/09/2023 [facility] M6122 / / [id number] documented as of this encounter Visit Diagnoses Diagnosis PMR (polymyalgia rheumatica) (HCC)- Primary Polymyalgia rheumatica documented in this encounter Advance Directives Latest Code Status on File Code Status Date Activated Date Inactivated Comments Full Code 04/05/2021 7:37 AM 04/05/2021 4:11 PM This order reflects the patients wishes and were consensually agreed upon. Question Answer Comments Discussion of Advance Directives occurred with: Not Discussed Care Teams Non Food Receiving Clerk Relationship Specialty Start Date End Date Dylan Barros MD [address] [facility] [place] [address] PCP - General Family Medicine 11/07/23 documented as of this encounter
--- OUTSIDE RECORDS SUMMARY | 2024-02-28 11:55 | External Medical Summary | Summary of Care ---
Author Name Unknown Organization [facility] Address [address] [place] [address] Phone [phone] Care Team Providers Care Blending Machine Operator Name Role Phone Dylan Barros MD Primary Care Provider +1- [phone] Reason for Visit * Reason Comments eRx-Medication Refill Encounter Details Date Type Department Care Team (Late st Contact Info) Description 02/10/2024 Refill Cardiology, [facility] [address] [place] [address] Nicole Severino PA-C [address] [place] [address] Dyslipidemia, goal LDL below 70 Allergies Active Allergy Reactions Criticality Noted Date Comments Albuterol High 04/04/2022 Other reaction(s): racing heart Citalopram 04/04/2022 Other reaction(s): Unknown Sulfa Antibiotics Hives Medium 07/07/2000 documented as of this encounter (statuses as of 02/10/2024) Medications Medication Sig Dispensed Refills Start Date [...] THE MORNING 90 Tablet 3 02/10/2024 Active Atorvastatin Calcium 20 MG Oral Tablet (Lipitor)Indicati ons:Dyslipidemia, goal LDL below 70 Take 1 Tablet by mouth in the morning. 90 Tablet 3 05/15/2023 02/10/20 24 Discontinued documented as of this encounter (statuses as of 02/10/2024) Active Problems Problem Noted Date Diagnosed Date [...] as of this encounter (statuses as of 02/10/2024) Resolved Problems Problem Noted Date Diagnosed Date Resolved Date Obstructive sleep apnea 11/28/201101/26 Overview: AHI 8..2 in April 2008 documented as of this encounter (statuses as of 02/10/2024) Immunizations Name Administration Dates Next Due COVID-19 [...] encounter Miscellaneous Notes * Telephone Encounter - Radha Bravo CRNP - 02/10/2024 3:22 PM EDT Signed Prescriptions: Disp Refills Atorvastatin Calcium 20 MG Oral Tablet (Li*90 Tab*3 Sig: TAKE 1 TABLET BY MOUTH ONCE DAILY IN THE MORNING Authorizing Provider: RADHA BRAVO * Telephone Encounter - Peyton Bennett CMA - 02/10/2024 1:27 PM EDTPending Prescriptions: Disp Refills Atorvastatin Calcium 20 MG Oral Tablet (Carmen*90 Tab*3 Sig: TAKE 1 TABLET BY MOUTH ONCE DAILY IN THE MORNING * Telephone Encounter - Peyton Bennett CMA - 02/10/2024 1:26 PM EDT Did you pend patient's preferred pharmacy and medication before forwarding?yes Pharmacy: [facility] [address] Pending Prescriptions: Disp Refills Atorvastatin Calcium 20 MG Oral Tablet (L*90 Tab*3 Sig: TAKE 1 TABLET BY MOUTH ONCE DAILY IN THE MORNING Last Visit: 09/29/2023 (in office), Visit date not found (telemedicine) Next Visit: 04/27/2024 If no future appointments scheduled, and last appointment is greater than a year ago, please schedule patient for a follow-up appointment Last date the medication was ordered: 05-15-2023 Is this request for a controlled substance?No [...] Description 04/01/2024 11:00 AM EDT Telemedicine Rheumatology, [address] [address] Tessa Duque DO [address] [facility] [place] [address] 04/27/2024 8:30 AM EDT Office Visit Cardiology, [facility] [address] [place] [address] Nicole Severino, [place] [address] [place] [address] Health Maintenance Due Date Last Done Comments [...] this encounter Medical Devices Implanted Type Area Solid Tire Tuber Machine Operator Device Identifier Shelf Expiration Date Model / Serial / Lot Lead Pace Selectsecure 3830-69 - [id number] Implanted:Qty: 1 on 11/18/2022 by Nora Antonio DO at OR [facility] Left: Heart [employer] : CRM 10/18/2024 [id number] / / Description:RV LBBB Lead Novus Bipolar 52cm - [id number] - [id number] Implanted:Qty: 1 on 11/18/2022 by Nora Antonio DO at OR [facility] Left: Heart [employer] : CRM 09/23/2024 5076-52 / [id number] / Description:RA Pacemaker Dana Xt Dr Banks Wrls - [id number] - [id number] Implanted:Qty: 1 on 11/18/2022 by Nora Antonio DO at [facility] Pacemaker Left: Chest [employer] 04/09/2024 W1DR01 / [id number] / Lens Intraoc 26.5 - [id number] - [id number] Implanted:Qty: 1 on 02/23/2019 by Jonas Valentino MD at OR [facility] Right: Eye BAUSCH & LOMB 05/26/2023 [id number] / [id number] / [id number] Lens Intraoc 24.5 - [id number] - [id number] Implanted:Qty: 1 on 03/02/2019 by Jonas Valentino MD at OR [facility] Left: Eye BAUSCH & LOMB 08/26/2023 [id number] / [id number] / [id number] Envelope Antibacterial Tyrx - [id number] Implanted:Qty: 1 on 11/18/2022 by Nora Antonio DO at OR [facility] [employer] : CRM [id number] 08/09/2023 [facility] M6122 / / [id number] documented as of this encounter Visit Diagnoses Diagnosis Dyslipidemia, goal LDL below 70 Other and unspecified hyperlipidemia documented in this encounter Advance Directives Latest Code Status on File Code Status Date Activated Date Inactivated Comments Full Code 04/05/2021 7:37 AM 04/05/2021 4:11 PM This order reflects the patients wishes and were consensually agreed upon. Question Answer Comments Discussion of Advance Directives occurred with: Not Discussed Care Teams Blending Machine Operator Relationship Specialty Start Date End Date Dylan Barros MD [address] [place] [address] PCP - General Family Medicine 11/07/23 documented as of this encounter
--- OUTSIDE RECORDS SUMMARY | 2024-02-28 11:55 | External Medical Summary | Summary of Care ---
Author Name Unknown Organization [facility] Address [address] [place] [address] Phone [phone] Care Team Providers Care Animal Care Service Worker Name Role Phone Dylan Barros MD Primary Care Provider [phone]- [phone] Reason for Visit * Reason Comments Rheum Consultation * Evaluate & Treat - Unlimited Visits (Within 30 days (routine)) - Authorized Specialty Diagnoses / Procedures Referred By Raiza t Referred To Contact Rheumatology Diagnoses PMR (polymyalgia rheumatica) ([facility]) Dylan Barros MD [facility] [place] [address] Referral ID Status Reason Start Date Expiration Date Visits Requested Visits Authorized [id number] Authorized Specialty Services Required 01/28/2024 08/04/2025 [id number] Encounter Details Date Type Department Care Team (Late st Contact Info) Description 02/05/2024 1:20 PM EDT Telemedicine Rheumatology, [place] [address] [place] [address] Tessa Duque DO [address] [place] [address] PMR (polymyalgia rheumatica) ([facility])*; High risk medication use Allergies Active Allergy Reactions Criticality Noted Date Comments Albuterol High 04/04/2022 Other reaction(s): racing heart Citalopram 04/04/2022 Other reaction(s): Unknown Sulfa Antibiotics Hives Medium 07/07/2000 documented as of this encounter (statuses as of 02/05/2024) Medications Medication Sig Dispensed Refills Start Date [...] as of this encounter (statuses as of 02/05/2024) Active Problems Problem Noted Date Diagnosed Date [...] AHI was 17.1 DME: [facility], [place] Titration study 04/27/12 set pressure of 8 cm HTN, goal below 130/80 01/09/2011 Chronic coronary artery disease 09/15/2010 Overview: Cath 2006 - 30% mid LAD stenosis Dyslipidemia, goal LDL below 70 09/15/2010 documented as of this encounter (statuses as of 02/05/2024) Resolved Problems Problem Noted Date Diagnosed Date Resolved Date Obstructive sleep apnea 11/28/201101/26 Overview: AHI 8..2 in April 2008 documented as of this encounter (statuses as of 02/05/2024) Immunizations Name Administration Dates Next Due COVID-19 mRNA, LNP-s, No Pre serve, 2-Dose Series (Moderna) 12/24/2020,11/19/2020 COVID-19, mRNA, LNP-s, PF, B ooster, 100mcg/0.5mg (Moderna) 08/18/2021 Covid-19, Mrna, Lnp-s, Pf, B ivalent, 30 Mcg, IM, 12 yrs and above (Glance) 08/01/2022 DT - Diptheria/Tetanus (PEDS) 06/06/2005 Pneumococcal [...] money to buy more. Never true 12/26/19 Within the past 12 months, t he [...] on file documented as of this encounter Progress Notes * Tessa Duque, - 02/05/2024 1:23 PM EDT Patient location: HOME. I was not in a hospital or clinic location. After connecting through [employer], patient was verified with two unique identifiers. 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 Methods to assure confidentiality were taken. Patient acknowledged consent and understanding of privacy and security of the Telemedicine visit. The patient agreed to participate. Patient is seen as a new consult at the request of Dylan Barros MD HPI: This is a 73 year old female who is here for evaluation of joint pain. Patient states in states that she went to see PCP after 1-2 months of b/l shoulder and b/l hip pain. Patient states that she was told she could get PMR. She states that she was given Prednisone 20 mg daily. Patient states that it helped some but then she lowered the dose and symptoms returned and now is in a lotof pain. ROS: + as above with the addition of none - for: Fevers, Chills or sweats. No HAs or scalp tenderness. No jaw claudication. No acute visual or eye changes. No dry mouth. No auditory complaints. No oral lesions or ulcers. No dry mouth. No sore throat or cough. No chest pains or palpitations. No shortness of breath, dyspnea on exertion or whe ezing. No hemotpysis. No abdominal pain, GERD symptoms, diarrhea or constipation. No urinary complaints. No numbness, tingling or weakness. No rashes. Patient Active Problem List Diagnosis Code Chronic coronary artery disease I25.10 Dyslipidemia, goal LDL below 70 E78.5 HTN, goal below 130/80 I10 INEZ on CPAP G47.33 Hypothyroidism E03.9 LBBB (left bundle branch block) I44.7 Paroxysmal atrial fibrillation ([facility]) I48.0 Type 2 diabetes mellitus with hemoglobin A1c goal of less than 7.0% ([facility]) E11.9 Microcytic anemia D50.9 Bradycardia, sinus R00.1 Multiple lung nodules R91.8 JEFF (generalized anxiety disorder) F41.1 Panic disorder without agoraphobia F41.0 SSS (sick sinus syndrome) ([facility]) I49.5 Recurrent major depressive disorder, in partial remission ([facility]) F33.41 Current Outpatient Medications Medication Sig Dispense Refill MULTIVITAMINS PO TABS 1 tablet daily ASPIRIN 81 MG PO TABS Take by mouth at bedtime. NITROGLYCERIN 0.[address] under the tongue. 25 Tab 11 VITAMIN D3 1000 UNITS PO TABS 2 TABLETS DAILY LORazepam (ATIVAN) 1 MG Tablet One tablet every 8 hours as needed CPAP every night at bedtime. Docusate Sodium 100 MG Oral Capsule Take 1 Capsule by mouth every evening. traZODone HCl 50 MG Oral Tablet (Desyrel) Take by mouth 0.5 Tablets before bedtime. (Patient not taking: Reported on 12/31/2023) 90 Tablet 1 OneTouch Ultra Blue In Vitro Strip (Glucose Blood) Use as directed daily . 100 Strip 3 Sertraline HCl 100 MG Oral Tablet (Zoloft) Take 1.5 Tablets by mouth in the morning. 135 Tablet 3 Atorvastatin Calcium 20 MG Oral Tablet (Lipitor) Take 1 Tablet by mouth in the morning. (Patient taking differently: Take 1 Tablet by mouth in the morning. Takes in pm .) 90 Tablet 3 Potassium Chloride Tish ER 20 MEQ Oral Tablet Extended Release Take 1 Tablet by mouth in the morning. 90 Tablet 3 metFORMIN HCl ER 500 MG Oral Tablet Extended Release 24 Hour (Glucophage XR) Take 1 Tablet by mouthdaily. (Patient taking differently: Take 1 Tablet by mouth at bedtime.) 90 Tablet 3 Apixaban 5 MG Oral Tablet (Eliquis) Take 1 Tablet by mouth in the morning and 1 Tablet before bedtime. 180 Tablet 3 Metoprolol Succinate ER 25 MG Oral Tablet Extended Release 24 Hour (toPROL XL) Take 1 Tablet by mouth in the morning. (Patient taking differently: Take 1 Tablet by mouth in the morning. TAKES IN PM .) 90 Tablet 3 hydroCHLOROthiazide 25 MG Oral Tablet (Hydrodiuril) Take 1 Tablet by mouth in the morning. 90 Tablet 3 Levothyroxine Sodium 50 MCG Oral Tablet (Synthroid) Take 1 and 1/2 tablets daily alternating with 1tablet daily (at least 30 min prior to breakfast or other meds) 135 Tablet 2 predniSONE 10 MG Oral Tablet (Deltasone) Take 2 tabs by mouth daily and taper as directed 60 Tablet0 No current facility-administered medications for this visit. Social History Tobacco Use Smoking status: Never Smokeless tobacco: Never Vaping Use Vaping Use: Never used Substance Use Topics Alcohol use: Not Currently Drug use: No Family History Problem Relation Age of Onset Heart Disorder Father at 61 of CA Stroke Mother at 78 of CVA No Past Hx Brother Killed in [place] Cancer Sister Breast Hypertension Sister Now 71 Asthma Daughter Allergies Thyroid Disorder Daughter Hypothyroidism No Past Hx Daughter LMP 08/19/2000 GEN: AAO, No apparent distress. Patient is well developed. HEENT: Sclera are clear. NEURO: Speech and cognition are normal. SKIN: There are no rashes or lesions MUSCULOSKELETAL: -Hands: normal -Wrists: normal Impressions and Plans: This is a 73 year old female with likely PMR. D/w patient that her prednisone was lowered too quickly and that a very slow taper lasting almost 18 months is required. We will start at a higher due toworsening symptoms. --prednisone 40 mg x 2 weeks, 30 mg x 2 weeks, and 20 mg x 4 weeks --esr / crp check in 3 weeks after being on 40 Follow up in 6 weeks Thank you for involving me in this patient's care. Tessa Duque DO Department of Rheumatology [facility] documented in this encounter Plan of Treatment Scheduled Orders Name Type Priority Associated Diagnoses Orde r Schedule ERYTHROCYTE SEDIMENTATION RATE (ESR) Lab Routine PMR (polymyalgia rheumatica) ([facility]) Expected: 02/05/2024, Expires: 02/04/2025 CRP (INFLAMMATORY MARKER) Lab Routine PMR (polymyalgia rheumatica) ([facility]) Expected: 02/05/2024, Expires: 02/04/2025 Health Maintenance Due Date Last Done Comments Cologuard 1995 Sigmoidoscopy 1995 Fecal Occult Blood Test 07/07/2001 07/07/2000 Pneumococcal Vaccine: 65+ Years (3 of 3 - PPSV23 or PCV20) 08/22/2019 12/13/2015, 08/22/2014 COVID-19 Vaccine ( season) 2023 08/01/2022, 08/18/2021, 12/24/2020, Additional history exists Diabetic Foot Exam 06/28/2023 06/28/2022 HbA1c 01/06/2024 07/08/2023, 10/29, 06/04/2022, Additional history exists Albumin/Creatinine Ratio 07/08/2024 07/08/2023, 0806/2022 Diabetic Eye Exam 09/15/2024 09/15/2023, 08/29/2022 GFR [...] this encounter Medical Devices Implanted Type Area Physicist Solid Earth Device Identifier Shelf Expiration Date Model / Serial / Lot Lead Pace Selectsecure [id number] - [id number] Implanted:Qty: 1 on 11/18/2022 by Nora Antonio DO at [facility] Lead Left: Heart [employer] : [facility] 10/18/2024 [id number] / / Description:RV LBBB Lead Novus Bipolar 52cm - [id number] - [id number] Implanted:Qty: 1 on 11/18/2022 by Nora Antonio DO at [facility] Lead Left: Heart [employer] : CRM 09/23/2024 [id number] / [id number] / Description:RA Pacemaker Akwesasne Xt Dr Jocelyn Saldanals - [id number] - [id number] Implanted:Qty: 1 on 11/18/2022 by Nora Antonio DO at [facility] Pacemaker Left: Chest [employer] 04/09/2024 [id number] / [id number] / Lens Intraoc 26.5 - [id number] - [id number] Implanted:Qty: 1 on 02/23/2019 by Jonas Valentino MD at OR [facility] Right: Eye [employer] 05/26/2023 [id number] / [id number] / [id number] Lens Intraoc 24.5 - [id number] - [id number] Implanted:Qty: 1 on 03/02/2019 by Jonas Valentino MD at OR [facility] Left: Eye [employer] 08/26/2023 [id number] / [id number] / [id number] Envelope Antibacterial Tyrx - [id number] Implanted:Qty: 1 on 11/18/2022 by Nora Antonio DO at [facility] [employer] : CRM [id number] 08/09/2023 [facility] [id number] / / [id number] documented as of this encounter Visit Diagnoses Diagnosis PMR (polymyalgia rheumatica) (HCC)- Primary Polymyalgia rheumatica High risk medication use Encounter for long-term (current) use of other medications documented in this encounter Advance Directives Latest Code Status on File Code Status Date Activated Date Inactivated Comments Full Code 04/05/2021 7:37 AM 04/05/2021 4:11 PM This order reflects the patients wishes and were consensually agreed upon. Question Answer Comments Discussion of Advance Directives occurred with: Not Discussed Care Teams Animal Care Service Worker Relationship Specialty Start Date End Date Dylan Barros MD [address] [place] [address] PCP - General Family Medicine 11/07/23 documented as of this encounter
--- OUTSIDE RECORDS SUMMARY | 2024-02-28 11:55 | External Medical Summary | Summary of Care ---
Author Name Unknown Organization [facility] Address [address] [place] [address] Phone [phone] Care Team Providers Care Medical Scientist Name Role Phone Dylan Barros MD Primary Care Provider [phone] Reason for Visit * Reason Comments Follow Up 6 month return Was j ust diagnosed with PMR and was given short term prednisone which helpsWould like you to take over her scripts; desyrel, ativan, synthroid, zoloft, metformin, one tough blue strips Blood sugar is going up it was 119 this morning which could be from the prednisone Encounter Details Date Type Department Care Team (Late st Contact Info) Description 01/09/2024 10:00 AM EDT Office Visit 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 90 Tablet 1 06/04/2022 Active Additional Information Patient not taking.Reported on 12/31/2023 OneTouch Ultra Blue In Vitro Strip (Glucose Blood) Use as directed daily . 100 Strip 3 08/21/2022 Active Sertraline HCl 100 MG Oral Tablet (Zoloft)Indication s:Recurrent major depressive disorder, in partial remission (HCC) Take 1.5 Tablets by mouth in the morning. 135 Tablet 3 02/24/2023 Active Atorvastatin Calcium 20 MG Oral Tablet (Lipitor)Indicatio ns:Dyslipidemia, goal LDL below 70 Take 1 Tablet by mouth in the morning. 90 Tablet 3 05/15/2023 Active Additional Information Patient taking differently:20 mg Oral Daily(AM),Takes in pm, Reported on 09/29/2023 Potassium Chloride Tish ER 20 MEQ Oral Tablet Extended ReleaseIndications :Paroxysmal atrial fibrillation (HCC),HTN, goal below 130/80 Take 1 Tablet by mouth in the morning. 90 Tablet 3 05/22/2023 Active metFORMIN HCl ER 500 MG Oral Tablet Extended Release 24 Hour (Glucophage XR)Indications:Typ e 2 diabetes mellitus with hemoglobin A1c goal of less than 7.0% (HCC) Take 1 Tablet by mouth daily. 90 Tablet 3 06/19/2023 Active Additional Information Patient taking differently:500 mg OralHS, Reported on 12/31/2023 Apixaban 5 MG Oral Tablet (Eliquis)Indicatio ns:Paroxysmal atrial fibrillation (HCC) Take 1 Tablet by mouth in the morning and 1 Tablet before bedtime. 180 Tablet 3 08/25/2023 Active Metoprolol Succinate ER 25 MG Oral Tablet Extended Release 24 Hour (toPROL XL)Indications:Par oxysmal atrial fibrillation (HCC) Take 1 Tablet by mouth in the morning. 90 Tablet 3 08/25/2023 Active Additional Information Patient taking differently:25 mg Oral Daily(AM),TAKES IN PM, Reported on 09/29/2023 hydroCHLOROthiazid e 25 MG Oral Tablet (Hydrodiuril)Indic ations:Chronic coronary artery disease,HTN, goal below 130/80 Take 1 Tablet by mouth in the morning. 90 Tablet 3 10/21/2023 Active Levothyroxine Sodium 50 MCG Oral Tablet (Synthroid)Indicat ions:Hypothyroidis m, unspecified type Take 1 and 1/2 tablets daily alternating with 1 tablet daily (at least 30 min prior to breakfast or other meds) 135 Tablet 2 12/08/2023 Active predniSONE 10 MG Oral Tablet (Deltasone) Take 2 tabs by mouth daily and taper as directed 60 Tablet 0 01/09/2024 Active predniSONE 20 MG Oral Tablet (Deltasone) Take 1 Tablet by mouth in the morning for 5 days. 5 Tablet 0 01/06/2024 01/11/2024 documented as of this encounter (statuses as [...] AHI was 17.1 DME: [facility], Jean Titration study 04/27/12 set pressure of 8 [...] 30 Mcg, IM, 12 yrs and above ([employer]) 08/01/2022 DT - Diptheria/Tetanus (PEDS) 06/06/2005 Pneumococcal [...] Date Smoking Tobacco: Never Smokeless Tobacco: Never Tobacco Cessation:Counseling Given: Not Answered Alcohol Use Standard Drinks/Week Comments Not Currently [...] on file documented as of this encounter Last Filed Vital Signs Vital Sign Reading Time Taken Comments Blood Pressure 124/70 01/09/2024 10:09 AM EDT Pulse 82 01/09/2024 10:09 AM EDT Temperature 36 C (96.8 F) 01/09/2024 10:09 AM EDT Respiratory Rate 17 01/09/2024 10:09 AM EDT Oxygen Saturation 96% 01/09/2024 10:09 AM EDT Inhaled Oxygen Concentration - - Weight 94.9 kg (209 lb 3.2 oz) 01/09/2024 10:09 AM EDT Height - - Body Mass Index 37.06 12/31/2023 2:54 PM EST documented in this encounter Patient Instructions * Patient Instructions* Miriam Kumar LPN - 01/09/2024 10:18 AM EDT Patient Instructions - Fall Prevention (This education is for all patients over 65 regardless of symptoms) Remember to take your current medications as prescribed. In order to prevent falls, you are encouraged to: Exercise Utilize assistive/adaptive devices Avoid multifocal lenses when walking Avoid hazards in home Maintain a regular toileting schedule Any questions please contact our office. Preventing Falls in the Home (This education is for all patients over 65 regardless of symptoms) As you get older, falls are more likely. Thats because your reaction time slows. Your muscles and joints may also get stiffer, making them less flexible. Illness, medications, and vision changes can also affect your balance. A fall could leave you unable to live on your own. To make your home safer, follow these tips: Floors Put nonskid pads under area rugs Remove throw rugs Replace worn floor coverings Tack carpets firmly to each step on carpeted stairs. Put nonskid strips on the edges of uncarpeted stairs Keep floors and stairs free of clutter and cords Arrange furniture so there are clear pathways Clean up any spills right away Bathrooms Install grab bars in the tub or shower Apply nonskid strips or put a nonskid rubber mat in the tub or shower Sit on a bath chair to bathe Use bathmats with nonskid backing Lighting Keep a flashlight in each room Put a nightlight along the pathway between the bedroom and the bathroom Katie Patient Education Copyright 2008 - 2010 Katie except where otherwise noted Preventing Falls: Exercises to Improve Balance, Flexibility, Strength, and Staying Power (This education is for all patients over 65 regardless of symptoms) Certain types of exercises may help make you less likely to fall. Try the ones below. Or do other exercises that your healthcare provider suggests. Depending on your health, you may need to start slowly. Dont let that stop you. Even small amounts of exercise can help you. Be sure to talk to yourhealthcare provider before starting any exercise program. Improve Balance Many types of exercise can help improve balance. Marlon chi and yoga are good examples. Heres another one to try. You can do it anytime and almost anywhere. Stand next to a counter or solid support. Push yourself up onto your tiptoes. Hold for 5 seconds. If you start to lose your balance, hold on to the counter. Rest and repeat 5 times. Work up to holding for 20 to 30 seconds, if you can. Increase Flexibility Being more flexible makes it easier for you to move around safely. Try exercises like the seated hamstring stretch. Sit in a chair and put one foot on a stool. Straighten your leg and reach with both hands down either side of your leg. Reach as far down your leg as you can. Hold for about 20 seconds. Go back to the starting position. Then repeat 5 times. Switch legs. Build Strength Resistance exercises help build strength. You can do them without equipment. Or you can use weights, elastic bands, or special machines. One such exercise is called the biceps curl. You can hold a 1 pound weight or even a can of soup. Do this exercise at least 3 times a week. Strive for everyday. Sit up straight in a chair. Keep your elbow close to your body and your wrist straight. Bend your arm, moving your hand up to your shoulder. Then slowly lower your arm. Repeat 5 times. Switch to the other arm. Build Your Staying Power Aerobic exercises make your heart and lungs stronger so you can keep moving longer. Walking and swimming are two of the best types of exercises you can do. Using a stationary bike is great, too. Find an aerobic exercise that you enjoy. Start slowly and build up. Even 5 minutes is helpful. Aimfor a goal of 30 minutes, at least 3 times a week. You dont have to do 30 minutes in one session. Break it up and walk a little throughout the day. More Helpful Tips Start easy. Slowly work up to doing more. Talk with your healthcare provider about the best exercises for you. Call senior centers or health clubs about exercise programs. If needed, have a family member watch you walk every so often to check your stability. Exercise with a friend. Choose an activity you both enjoy. Try exercises that you can do anytime, anywhere. Here are two examples. Have someone with you when you first try these: Practice walking by placing one foot right in front of the other. Stand up and sit down 10 times. Repeat this throughout the day. Katie Patient Education Copyright 2009 - 2010 Katie except where otherwise noted. Preventing Falls: Moving Safely Using a Cane or Walker (This education is for all patients over 65 regardless of symptoms) Keep the cane away from your feet so you dont trip. A walking aid, such as a cane or walker, can help you stay more independent and avoid falls. Remember to keep your walking aid within easy reach when youre in a chair or in bed. And learn how to use it safely so you dont injure yourself. Using a Cane If you have a stronger side, hold the cane on that side. Get your balance. Move the cane and your weaker leg forward. Support your weight on both the cane and your weaker side. Step with your stronger leg. Start again from step 1. If youre using a folding walker, be sure you know how to lock it open. Check that its locked open before each use. Using a Walker Roll the walker (or lift it, if youre using one without wheels) forward about 12 inches. Step forward with your weaker leg first. Use the walker to help keep your balance. Bring your other foot forward to the center of the walker. Start again from step 1. Helpful Tips Check with your healthcare provider about the right walking aid to use. Ask about a walker with a seat attached. Check the tips of your cane or walker to make sure they have nonskid covers. Move slowly from room to room. Dont wilhelm. Sit down to get dressed. Use a dimitrios pack or backpack to keep your hands free. Get help for jobs that mean climbing, even on a stepstool. Katie Patient Education Copyright 2008 - 2010 Katie except where otherwise noted. Urinary Incontinence Plan of Care Documentation: (This education is for all patients over 65 regardless of symptoms) Current medications reconciled. Patient encouraged to: Practice kegal exercises Provide education materials Use the restroom every 2 hours throughout the day Limit caffeine, alcohol, spicy foods and acidic foods Keep a bladder diary Limit fluid intake 3-4 hours before bed Lose weight Prevent constipation Take fluid pills at a time when you can get to the bathroom quickly Control sugar better if diabetic Limit fluid intake to 60 oz. per day Wear support stockings (TEDs)if you have edema Miriam Kumar LPN 01/09/2024 Kegel Exercises Kegel exercises dont require special clothing or equipment. Theyre easy to learn and simple to do. And if you do them right, no one can tell youre doing them, so they can be done almost anywhere. Your doctor, nurse, or physical therapist can answer any questions you have and help you get started. A Weak Pelvic Floor The pelvic floor muscles may weaken due to aging, and vaginal childbirth, injury, surgery, chronic cough, or lack of exercise. If the pelvic floor is weak, your bladder and other pelvic organs may sag out of place. The urethra may also open too easily and allow urine to leak out. Kegel exercises can help you strengthen your pelvic floor muscles so they can better support the pelvic organs and control urine flow. How Kegel Exercises Are Done Try each of the Kegel exercises described below. When youre doing them, try not to move your leg, buttock, or stomach muscles. While youre urinating, try to stop the flow of urine. Start and stop it as often as you can. Contract as if you were stopping your urine stream, but do it when youre not urinating. Tighten your rectum as if trying not to pass gas. Contract your anus, but dont move your buttocks. Helpful Hints Do your Kegels as often as you can. The more you do them, the faster youll feel the results. Pick an activity you do often as a reminder. For instance, do your Kegels every time you sit down. Tighten your pelvic floor before you sneeze, get up from a chair, cough, laugh, or lift. This protects your pelvic floor from injury and can help prevent urine leakage. Try to hold each Kegel for a slow count to five. You probably wont be able to hold them for thatlong at first, but keep practicing. It will get easier as your pelvic floor gets stronger. Eventually, special weights that you place in your vagina may be recommended to help make your Kegels even more effective. Katie Patient Education Copyright 2008 - 2010 Katie except where otherwise noted. Here are some helpful tips for your urinary incontinence: (This education is for all patients over 65 regardless of symptoms) Practice Kegel exercises Use the restroom every 2 hours throughout the day Limit caffeine, alcohol, spicy foods, and acidic foods Keep a bladder diary Limit fluid intake 3-4 hours before bed Lose weight Prevent constipation Take fluid pills at a time when can get to the bathroom quickly Control sugar better if diabetic Limit fluid intake to 60 oz. per day Any questions, please feel free to contact our office. documented in this encounter Progress Notes * Dylan Barros MD - 01/09/2024 10:56 AM EDT Subjective: Ángel Kim is a 73 year old female here today for Chief Complaint Patient presents with Follow Up 6 month return Was just diagnosed with PMR and was given short term prednisone which helps Would like you to take over her scripts; desyrel, ativan, synthroid, zoloft, metformin, one tough blue strips Blood sugar is going up it was 119 this morning which could be from the prednisone Here for routine recheck. Tolerating current meds. Will need several refills sent. Recnet diagnosis of PMR - wishes to review diagnosis and treatment plan/duration today. Is feeling better with prednisone. Denies chest pain, shortness of breath, cough, nausea, vomiting, abd pain, dysuria, urinary frequency, nocturia, fever, melena, hematochezia, peripheral edema. Past Medical History: Diagnosis Date Anxiety Arthritis osto Atrial fibrillation (HCC) Cataract surgery Depression Diabetes mellitus (HCC) GERD (gastroesophageal reflux disease) Hearing loss Hypertension Left bundle branch block Obesity Osteoporosis SSS (sick sinus syndrome) (HCC) Thyroid disease Varicella disease as a child Past Surgical History: Procedure Laterality Date CATARACT SURGERY,COMPLEX CERV DISC ARTHROPLAST,REMOVE,ADDL INTERSPCE COLONOSCOPY, DIAGNOSTIC (RECTUM) 01/15/2024 COLONOSCOPY FLEXIBLE PROXIMAL DIAGNOSTIC performed by Denita Davila MD at ENDOSCOPY [facility] EGD, FLEXIBLE, DIAGNOSTIC 09/04/2015 gastritis/inpt [facility] HEMORRHOIDECTOMY, INTERNAL, 2 + COLUMNS N/A 05/31/2021 HEMORRHOIDECTOMY EXTERNAL AND INTERNAL COMPLEX performed by Jaky Sanches MD at OR [facility] INFORMATION 03/22/2021 Bronchoscopy. INSERT/REPLACE PACEMAKER,ATRIAL/VENTRICULAR Left 11/18/2022 NEW DDD PACEMAKER IMPLANT performed by Nora Antonio DO at OR [facility] OTHER 1994 lumbar discectomy REMOVE CATARACT, INSERT LENS PROSTH Right 02/23/2019 right EXTRACAPSULAR CATARACT REMOVAL WITH INTRAOCULAR LENS performed by Jonas Valentino MD at [facility] REMOVE CATARACT, INSERT LENS PROSTH Left 03/02/2019 left EXTRACAPSULAR CATARACT REMOVAL WITH INTRAOCULAR LENS performed by Jonas Valentino MD at OR [facility] TOTAL ABD HYSTERECTOMY W/WO REMOVAL OF TUBE(S) UMBIL HERNIA REPAIR (REDUCIBLE) AGE 5+YR Review of patient's allergies indicates: Allergen Reactions Albuterol Other reaction(s): racing heart Sulfa Antibiotics Hives Citalopram Other reaction(s): Unknown Current Outpatient Medications Medication Sig Dispense Refill [...] Take 1 Capsule by mouth every evening. Sonda41 Ultra Blue In Vitro Strip (Glucose Blood) [...] daily and taper as directed 60 Tablet0 traZODone HCl 50 MG Oral Tablet (Desyrel) Take by mouth 0.5 Tablets before bedtime. (Patient not taking: Reported on 12/31/2023) 90 Tablet 1 No current facility-administered medications for this visit. 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 Stable. Reviewed routine management of PMR with prednisone and discussed gradual wean Follow Up: Return in about 3 months (around 04/10/2024) for recheck - can send to me if nothing available. | For: recheck - can send to me if nothing available 36 min with pt and chart review. Dylan Barros MD * Miriam Kumar LPN - 01/09/2024 10:18 AM EDT Urinary Incontinence Plan of Care Documentation: (This education is for all patients over 65 regardless of symptoms) Current medications reconciled. Patient encouraged to: Practice kegal exercises Provide education materials Use the restroom every 2 hours throughout the day Limit caffeine, alcohol, spicy foods and acidic foods Keep a bladder diary Limit fluid intake 3-4 hours before bed Lose weight Prevent constipation Take fluid pills at a time when you can get to the bathroom quickly Control sugar better if diabetic Limit fluid intake to 60 oz. per day Wear support stockings (TEDs)if you have edema Miriam Kumar LPN 01/09/2024 documented in this encounter Nursing Notes * Miriam Kumar LPN - 01/09/2024 10:15 AM EDT The patient has been properly identified by confirmation of name and date of . Chief Complaint Patient presents with Follow Up 6 month return Was just diagnosed with PMR and was given short term prednisone which helps Would like you to take over her scripts; desyrel, ativan, synthroid, zoloft, metformin, one tough blue strips Blood sugar is going up it was 119 this morning which could be from the prednisone documented in this encounter Plan of Treatment Upcoming Encounters Date Type Department Care Team (Late st Contact Info) Description 01/29/2024 10:00 AM EDT Cardiac Studies Cardiology, [facility] [address] [facility] [place] [id number] [place], [facility] [address] [facility] [place] [id number] Health Maintenance Due Date Last Done Comments [...] this encounter Medical Devices Implanted Type Area Clinical Psychiatrist Device Identifier Shelf Expiration Date Model / Serial / Lot Lead Pace Selectsecure [id number] - [id number] Implanted:Qty: 1 on 11/18/2022 by Nora Antonio DO at OR [facility] Lead Left: Heart [employer] : CRM 10/18/2024 [id number] / / Description:RV LBBB Lead Novus Bipolar 52cm - [id number] - [id number] Implanted:Qty: 1 on 11/18/2022 by Nora Antonio DO at OR [facility] Lead Left: Heart [employer] : CRM 09/23/2024 [id number] / [id number] / Description:RA Pacemaker Moraida Xt [facility] - [id number] - [id number] Implanted:Qty: 1 on 11/18/2022 by Nora Antonio DO at OR [facility] Pacemaker Left: Chest [employer] 04/09/2024 [id number] / [id number] / Lens Intraoc 26.5 - [id number] - [id number] Implanted:Qty: 1 on 02/23/2019 by Jonas Valentino MD at OR [facility] Right: Eye [employer] 05/26/2023 [id number] / [id number] / [id number] Lens Intraoc 24.5 - [id number] - [id number] Implanted:Qty: 1 on 03/02/2019 by Jonas Valentino MD at OR [facility] Left: Eye [employer] 08/26/2023 [id number] / [id number] / [id number] Envelope Antibacterial Tyrx - [id number] Implanted:Qty: 1 on 11/18/2022 by Nora Antonio DO at OR [facility] [employer] : CRM [id number] 08/09/2023 CMR [id number] / / [id number] documented as of this encounter Results * ERYTHROCYTE SEDIMENTATION RATE (ESR) (01/16/2024 8:53 AM EDT) ESR 24 <30 mm/hour 01/16/2024 5:55 PM EDT LAB[facility]ATORY [facility] Blood Venous blood specimen / Unknown Venipuncture / Unknown 01/16/2024 8:53 AM EDT 01/16/2024 8:53 AM EDT Dylan Barros MD LAB BLOOD ORDERABL ES [facility]ATORY [facility] [address] [place] [address] documented in this encounter Visit Diagnoses Diagnosis PMR (polymyalgia rheumatica) (HCC)- Primary Polymyalgia rheumatica Risk and functional assessment Screening for unspecified condition Dyslipidemia, goal LDL below 70 Other and unspecified hyperlipidemia 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 Question Answer Comments Discussion of Advance Directives occurred with: Not Discussed Care Teams Medical Scientist Relationship Specialty Start Date End Date Dylan Barros MD [address] [place] [address] PCP - General Family Medicine 11/07/23 documented as of this encounter"
--- OUTSIDE RECORDS SUMMARY | 2024-02-28 11:55 | External Medical Summary | Summary of Care ---
Author Name Unknown Organization [facility] Address [address] [place] [address] Phone [phone] Care Team Providers Care Instructor Physical Education Name Role Phone Dylan Barros MD Primary Care Provider [phone] Reason for Visit * Reason Comments Rheum Consultation * Evaluate & Treat - Unlimited Visits (Within 30 days (routine)) - Authorized Specialty Diagnoses / Procedures Referred By Raiza t Referred To Contact Rheumatology Diagnoses PMR (polymyalgia rheumatica) ([facility]) Dylan Barros [place] [address] Referral ID Status Reason Start Date Expiration Date Visits Requested Visits Authorized [id number] Authorized Specialty Services Required 01/28/2024 08/04/[phone] Encounter Details Date Type Department Care Team (Late st Contact Info) Description 02/05/2024 1:20 PM EDT Telemedicine Rheumatology, [place] [address] [place] [address] Tessa Stock DO [address] [place] [address] PMR (polymyalgia rheumatica) ([facility])*; High risk medication use Allergies Active Allergy Reactions Criticality Noted Date Comments Albuterol High 04/04/2022 Other reaction(s): racing heart Citalopram 04/04/2022 Other reaction(s): Unknown Sulfa Antibiotics Hives Medium 07/07/2000 documented as of this encounter (statuses as of 02/06/2024) Medications Medication Sig Dispensed Refills Start Date [...] as of this encounter (statuses as of 02/06/2024) Active Problems Problem Noted Date Diagnosed Date [...] AHI was 17.1 DME: [facility], Bud Titration study 04/27/12 set pressure of 8 cm HTN, goal below 130/80 01/09/2011 Chronic coronary artery disease 09/15/2010 Overview: Cath 2006 - 30% mid LAD stenosis Dyslipidemia, goal LDL below 70 09/15/2010 documented as of this encounter (statuses as of 02/06/2024) Resolved Problems Problem Noted Date Diagnosed Date Resolved Date Obstructive sleep apnea 11/28/201101/26 Overview: AHI 8..2 in April 2008 documented as of this encounter (statuses as of 02/06/2024) Immunizations Name Administration Dates Next Due COVID-19 mRNA, LNP-s, No Pre serve, 2-Dose Series (Moderna) 12/24/2020,11/19/2020 COVID-19, mRNA, LNP-s, PF, B ooster, 100mcg/0.5mg (Moderna) 08/18/2021 Covid-19, Mrna, Lnp-s, Pf, B ivalent, 30 Mcg, IM, 12 yrs and above (RightScale) 08/01/2022 DT - Diptheria/Tetanus (PEDS) 06/06/2005 Pneumococcal [...] as of this encounter Progress Notes * Brianna Palmer OSA - 02/06/2024 2:06 PM EDT Left a message to call and schedule a 6 week return video appt with dr stock. On recall list. * Tessa Stock DO - 02/05/2024 1:23 PM EDT Patient location: HOME. I was not in a hospital or clinic location. After connecting through televideo, patient was verified with two unique identifiers. 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 Patient states in [facility] states that she went to see PCP [...] bundle branch block) I44.7 Paroxysmal atrial fibrillation ([facility]) I48.0 Type 2 diabetes mellitus with hemoglobin A1c goal of less than 7.0% ([facility]) E11.9 Microcytic anemia D50.9 Bradycardia, sinus R00.1 Multiple lung nodules R91.8 JEFF (generalized anxiety disorder) F41.1 Panic disorder without agoraphobia F41.0 SSS (sick sinus syndrome) ([facility]) I49.5 Recurrent major depressive disorder, in partial remission ([facility]) F33.41 Current Outpatient Medications Medication Sig Dispense [...] Onset Heart Disorder Father at 61 of [place] Stroke Mother at 78 of CVA No [...] involving me in this patient's care. Tessa Stock DO Department of Rheumatology [facility] documented in this encounter Plan of Treatment Scheduled Orders Name Type Priority Associated Diagnoses Orde r Schedule ERYTHROCYTE SEDIMENTATION RATE (ESR) Lab Routine PMR (polymyalgia rheumatica) ([facility]) Expected: 02/05/2024, Expires: 02/04/2025 CRP (INFLAMMATORY MARKER) Lab Routine PMR (polymyalgia rheumatica) ([facility]) Expected: 02/05/2024, Expires: 02/04/2025 Health Maintenance Due [...] Additional history exists Zoster Vaccines Completed 07/16/2023, 03/0 12/2022, 06/14/2015 GARDASIL-HPV IMMUNIZATION SERIES Aged Out No longer eligible based on patient's age to complete this topic Hepatitis B Aged Out No longer eligi ble based on patient's age to complete this topic MENINGOCOCCAL (MENACTRA/MENVEO) Aged Out No longer eligible based on patient's age to complete this topic documented as of this encounter Medical Devices Implanted Type Area Burn Crew Member Device Identifier Shelf Expiration Date Model / Serial / Lot Lead Pace Selectsecure [id number] - [id number] Implanted:Qty: 1 on 11/18/2022 by Nora Antonio DO at OR [facility] Lead Left: Heart [employer] : CAR 10/18/2024 [id number] / / Description:RV LBBB Lead Novus Bipolar 52cm - [id number] - [id number] Implanted:Qty: 1 on 11/18/2022 by Nora Antonio DO at OR [facility] Lead Left: Heart [employer] : CAR 09/23/2024 5076-52 / [id number] / Description:RA Pacemaker Dana Xt Dr Banks Wrls - [id number] - [id number] Implanted:Qty: 1 on 11/18/2022 by Nora Antonio DO at OR [facility] Pacemaker Left: Chest [employer] 04/09/2024 [id number] / [id number] / Lens Intraoc 26.5 - [id number] - [id number] Implanted:Qty: 1 on 02/23/2019 by Jonas Valentino MD at OR [facility] Right: Eye [employer]USCH [employer] LOMB 05/26/2023 [id number] / [id number] / [id number] Lens Intraoc 24.5 - [id number] - [id number] Implanted:Qty: 1 on 03/02/2019 by Jonas Valentino MD at OR [facility] Left: Eye BAUSCH & LOMB 08/26/2023 [id number] / [id number] / [id number] Envelope Antibacterial Tyrx - [id number] Implanted:Qty: 1 on 11/18/2022 by Nora Antonio DO at OR [facility] [employer] : CRM [id number] 08/09/2023 CMR [id number] / / [id number] documented as of this encounter Visit Diagnoses [...] Directives occurred with: Not Discussed Care Teams Instructor Physical Education Relationship Specialty Start Date End Date Dylan Barros MD [address] [place] [address] PCP - General Family Medicine 11/07/23 documented as of this encounter
--- OUTSIDE RECORDS SUMMARY | 2024-02-28 11:55 | External Medical Summary | Summary of Care ---
Author Name Unknown Organization [facility] Address [address] [place] [address] Phone [phone] Care Team Providers Care Application Programmer Analyst Name Role Phone Dylan Barros MD Primary Care Provider [phone]- [phone] Reason for Referral * Evaluate & Treat - Unlimited Visits (Within 30 days (routine)) - Pending Review Specialty Diagnoses / Procedures Referred By Raiza dsouza Referred To Contact Rheumatology Diagnoses PMR (polymyalgia rheumatica) ([facility]) Dylan Barros MD [address] [place] [address] Referral ID Status Reason Start Date Expiration Date Visits Requested Visits Authorized [id number] Pending Review Specialty Services Required 01/28/[phone] Question Answer Referral Priority Within 30 days (routine) Where should this appointment be scheduled? [facility] Reason for referral: Other Conditions Reason for Visit * Reason Onset Date Comments Referral 01/27/2024 Encounter Details Date Type Department Care Team ([facility] st Contact Info) Description 01/27/2024 Telephone [facility] [address] [place] [address] Dylan Barros MD [address] [place] [address] Referral Allergies Active Allergy Reactions Criticality Noted [...] AHI was 17.1 DME: [facility] Oxygen, Circle Titration study 04/27/12 set pressure of 8 [...] 30 Mcg, IM, 12 yrs and above ([employer]) 08/01/2022 DT - Diptheria/Tetanus (PEDS) 06/06/2005 Pneumococcal [...] referral need to be placed into the [employer] system? Name of preferred specialist: n/a Type of specialist: rheumatology Location of specialist: [facility] Phone #: n/a Specialist's Fax #: [phone] Reason for visit: PMR Date of visit: n/a documented in this encounter Plan of Treatment Upcoming Encounters Date Type Department Care Team (Late st Contact Info) Description 02/05/2024 1:20 PM EDT Telemedicine Rheumatology, [place] [address] [place] [address] Tessa Duque DO [address] [place] [address] Scheduled Referrals Name Type Priority Associated Diagnoses [...] this encounter Medical Devices Implanted Type Area Mutual Fund Accountant Device Identifier Shelf Expiration Date Model / Serial / Lot Lead Pace Selectsecure [id number] - [id number] Implanted:Qty: 1 on 11/18/2022 by Nora Antonio DO at OR [facility] Lead Left: Heart [employer] : CAR 10/18/2024 [id number] / / Description:RV LBBB Lead Novus Bipolar 52cm - [id number] - [id number] Implanted:Qty: 1 on 11/18/2022 by Nora Antonio DO at OR [facility] Lead Left: Heart [employer] : CAR 09/23/2024 5076-52 / [id number] / Description:RA Pacemaker Dana Xt Dr Banks Wrls - [id number] - [id number] Implanted:Qty: 1 on 11/18/2022 by Nora Antonio DO at OR [facility] Pacemaker Left: Chest [employer] 04/09/2024 [id number] / [id number] / Lens Intraoc 26.5 - [id number] - [id number] Implanted:Qty: 1 on 02/23/2019 by Jonas Valentino MD at OR [facility] Right: Eye BAUSCH & LOMB 05/26/2023 [id number] / [id number] / [id number] Lens Intraoc 24.5 - [id number] - [id number] Implanted:Qty: 1 on 03/02/2019 by Jonas Valentino MD at OR [facility] Left: Eye BAUSCH & LOMB 08/26/2023 [id number] / [id number] / [id number] Envelope Antibacterial Tyrx - [id number] Implanted:Qty: 1 on 11/18/2022 by Nora Antonio DO at OR [facility] [employer] : CRM [id number] 08/09/2023 CMR M6122 / / [id number] documented as of this encounter Visit Diagnoses [...] Directives occurred with: Not Discussed Care Teams Application Programmer Analyst Relationship Specialty Start Date End Date Dylan Barros MD [address] [place] [facility] [place] [address] PCP - General Family Medicine 11/07/23 documented as of this encounter
--- NOTE | 2024-02-29 21:11 | Electrocardiogram Report ---
Test Reason : Blood Pressure : / mmHG Vent. Rate : 122 BPM Atrial Rate : 122 BPM P-R Int : 182 ms QRS Dur : 144 ms QT Int : 316 ms P-R-T Axes : 000 -53 125 degrees QTc Int : 450 ms Sinus tachycardia with Premature supraventricular complexes Left axis deviation Left bundle branch block Abnormal ECG When compared with ECG of 04-APR-2022 12:48, Premature supraventricular complexes are now Present Vent. rate has increased BY 75 BPM QRS duration has decreased Confirmed by Jed Narvaez ([id number]) on 02/29/2024 9:11:31 PM Referred By: Confirmed By:Jed Narvaez
== END 2024-02-27 16:39 | disposition home or self-care (01) | DRG 309 ==
LOC: ED 09:20 → SUATTDRO 14:11 → 2S 14:11

== ENCOUNTER 2024-09-24 19:19 | Inpatient (IN) ==
--- OUTSIDE RECORDS SUMMARY | 2024-09-24 19:25 | External Medical Summary ---
Author Name Unknown Address Unknown Organization [id number]:[facility] [place] - [address] [facility] [address] Laboratory Report Ordering Provider Test Date Status NASEEM PERALTANORA 09/21/2024 08:56:53 Final Observation Date Value Abnormality Reference (Units ) Status Triglyceride 09/21/2024 08:56:53 97 <=174 ( mg/dL) Final Triglyceride Reference Range s (mg/dL):
<150 Acceptable
150-174 Borderline high
175-499 High
>=500 Very high Cholesterol 09/21/2024 08:56:53 176 <200 (mg /dL) Final Total Cholesterol Reference Ranges (mg/dL):
<200 Desirable
200-239 Borderline high
>=240 High HDL 09/21/2024 08:56:53 102 >49 (mg/dL ) Final HDL Cholesterol Reference Ra nges (mg/dL):
>=60 High (Desirable)
<50 Low (Undesirable) For Females
<40 Low (Undesirable) For Males NON-HDL CHOLESTEROL 09/21/2024 08:56:53 74 <=159 (mg/dL) Final Non-HDL Cholesterol Referenc e Range (mg/dL):
<100 Target level for high risk ASCVD patient
<130 Optimal for general population
130-159 Near optimal for general population
160-189 Borderline High
190-219 High
>=220 Very High LDL, (calculated) 09/21/2024 08:56:53 55 <= 129 (mg/dL) Final LDL Cholesterol Reference Ra nges (mg/dL):
<70 Target level for high risk ASCVD patient
<100 Optimal for general population
100-129 Near optimal for general population
130-159 Borderline high
160-189 High
>=190 Very high Performing Location LABOR[facility]ORY [facility] [place] - [address] [facility] [address]
--- OUTSIDE RECORDS SUMMARY | 2024-09-24 19:25 | External Medical Summary ---
Author Name Unknown Address Unknown Organization [id number][place] [place] [facility] [address] [facility] [address] Laboratory Report Ordering Provider Test Date Status EDGAR PERALTAMARKIE 09/21/2024 08:56:53 Final Observation Date Value Abnormality Reference (Units ) Status WBC, Total 09/21/2024 08:56:53 6.65 4.00-10.80 (K/uL) Final RBC 09/21/2024 08:56:53 4.22 3.85-5.15 (M/uL) Final Hemoglobin 09/21/2024 08:56:53 13.9 12.0-15.3 (g/dL) Final HCT 09/21/2024 08:56:53 43.7 36.0-45.2 (%) Final MCV 09/21/2024 08:56:53 103.6 81.5-97.5 (fL) Final MCH 09/21/2024 08:56:53 32.9 27.0-34.0 (pg) Final MCHC 09/21/2024 08:56:53 31.8 32.0-36.0 (g/dL) Final RDW 09/21/2024 08:56:53 14.3 11.5-15.5 (%) Final Platelets 09/21/2024 08:56:53 185 140-400 (K/uL) Final MPV 09/21/2024 08:56:53 12.5 6.6-11.1 (fL) Final Nucleated erythrocytes/100 leukocytes [Ratio] in Blood by Automated count 09/21/2024 08:56:53 0 <=0 (/100 WBCs) Final Performing Location [facility] [place] [address] [facility] [address]
--- OUTSIDE RECORDS SUMMARY | 2024-09-24 19:25 | External Medical Summary ---
Author Name Unknown Address Unknown Organization [id number]:[facility] [place] [address] [place] [address] Laboratory Report Ordering Provider Test Date Status MEAGAN PERALTA 09/21/2024 08:56:53 Final Observation Date Value Abnormality Reference (Units ) Status TSH 09/21/2024 08:56:53 2.97 0.27-4.20 (uIU/mL) Final Performing Location [facility] [place] [address] [place] [address]
--- OUTSIDE RECORDS SUMMARY | 2024-09-24 19:25 | External Medical Summary ---
Author Name Unknown Address Unknown Organization [id number]:[facility] [place] - [address] [place] [address] Laboratory Report Ordering Provider Test Date Status MEAGAN PERALTA 09/21/2024 08:56:53 Final Observation Date Value Abnormality Reference (Units ) Status Vitamin B12 09/21/2024 08:56:53 997 182-3505 (pg/mL) Final Performing Location [facility] [place] - [address] [place] [address]
--- OUTSIDE RECORDS SUMMARY | 2024-09-24 19:25 | External Medical Summary ---
Author Name Unknown Address Unknown Organization K01:[facility] [place] [address] [place] [address] Laboratory Report Ordering Provider Test Date Status MEAGAN PERALTA 09/21/2024 08:56:53 Final Observation Date Value Abnormality Reference (Units ) Status BUN 09/21/2024 08:56:53 23 Above high normal 6-20 (mg/dL) Final Creatinine 09/21/2024 08:56:53 0.8 0.5-1.0 (mg/dL) Final Glomerular filtration rate/1.73 sq M.predicted [Volume Rate/Area] in Serum, Plasma or Blood by Creatinine-based formula (CKD-EPI) 09/21/2024 08:56:53 78 >=60 (mL/min) Final eGFR is calculated based on the CKD-EPI 2020 equation. Sodium 09/21/2024 08:56:53 141 135-146 (m mol/L) Final Potassium 09/21/2024 08:56:53 3.8 3.5-5.1 (m mol/L) Final Cl 09/21/2024 08:56:53 102 98-107 (mm ol/L) Final CO2 09/21/2024 08:56:53 29 22-32 (mmo l/L) Final Anion gap 09/21/2024 08:56:53 10 7-15 (mmol /L) Final Glucose 09/21/2024 08:56:53 109 70-120 (mg /dL) Final Albumin 09/21/2024 08:56:53 4.5 3.8-5.0 (g /dL) Final AST (Aspartate aminotransferase) 09/21/2024 08:56:53 18 10-35 (U/L) Final Alk Phos 09/21/2024 08:56:53 61 35-130 (U/ L) Final Bilirubin, Total 09/21/2024 08:56:53 0.5 <=1 .2 (mg/dL) Final Calcium 09/21/2024 08:56:53 9.7 8.4-10.2 ( mg/dL) Final Protein 09/21/2024 08:56:53 6.7 6.0-8.3 (g /dL) Final ALT (Alanine aminotransferase) 09/21/2024 08:56:53 24 10-35 (U/L) Final Performing Location [facility] [place] [facility] [address] [facility] [address]
--- OUTSIDE RECORDS SUMMARY | 2024-09-24 19:25 | External Medical Summary ---
Author Name Unknown Address Unknown Organization K01:[facility] [place] - [facility] [address] [facility] [address] Laboratory Report Ordering Provider Test Date Status MEAGAN PERALTA 09/21/2024 08:56:53 Final Observation Date Value Abnormality Reference (Units ) Status HbA1C 09/21/2024 08:56:53 6.7 Above high normal 4. 0-5.6 (%) Final The use of HbA1c to monitor glycemic status is based on normal hemoglobin and HbA composition. This test should not be used in patients with abnormal hemoglobin that affects the half life of the red blood cell or the in vivo glycation rates. Glucose, estimated average 09/21/2024 08:56:53 146 Above high normal <126 (mg/dL) Hermann menjivar Performing Location [facility] [place] - [address] [facility] [address]
--- OUTSIDE RECORDS SUMMARY | 2024-09-24 19:25 | External Medical Summary | Summary of Care ---
Author Name Unknown Organization [facility] Address [address] [place] [address] Phone [phone] Care Team Providers Care Channel Marketing Program Manager Name Role Phone Dylan Barros MD Primary Care Provider [phone] Reason for Visit * Reason Comments Outpatient Testing Encounter Details Date Type Department Care Team (Late st Contact Info) Description 09/21/2024 9:00 AM EST Laboratory Laboratory, [facility] [address] [place] [phone] [place], Laboratory [address] [place] [address] Type 2 diabetes mellitus with hemoglobin A1c goal of less than 7.0% ([facility]); Hypothyroidism, unspecified type; Dyslipidemia, goal LDL below 70; Encounter for long-term (current) use of medications Allergies Active Allergy Reactions Criticality Noted Date Comments Albuterol High 04/04/2022 Other reaction(s): racing heart Citalopram 04/04/2022 Other reaction(s): Unknown Sulfa Antibiotics Hives Medium 07/07/2000 documented as of this encounter (statuses as of 09/21/2024) Medications MULTIVITAMINS PO TABS 1 tablet daily Activ e ASPIRIN 81 MG PO TABS Take by mouth at bedtime. Active NITROGLYCERIN 0.[address] under the tongue. 25 Tab 11 1 Active VITAMIN D3 1000 UNITS PO TABS 2 TABLETS DAILY 4 Active LORazepam (ATIVAN) 1 MG Tablet One tablet every 8 hours as needed 6 Active CPAP every night at bedtime. Active Docusate Sodium 100 MG Oral Capsule Take 1 Capsule by mouth every evening. Active Sertraline HCl 100 MG Oral Tablet (Zoloft)Indicati ons:Recurrent major depressive disorder, in partial remission (HCC) TAKE 1 & 1/2 TABLETS BY MOUTH DAILY IN THE MORNING 135 Tablet 3 4 Active Empagliflozin 10 MG Oral Tablet (Jardiance) Take 1 Tablet by mouth in the morning. 90 Tablet 3 4 Active Potassium Chloride Tish ER 20 MEQ Oral Tablet Extended ReleaseIndicatio ns:HTN, goal below 130/80,Paroxysma l atrial fibrillation (HCC) Take 1 Tablet by mouth in the morning and 1 Tablet before bedtime. 180 Tablet 3 4 Active Tri Alpha EnergyTouch Verio w/Device Kit Use up to 4 times a day E11.9 1 Kit 4 Active predniSONE 10 MG Oral Tablet (Deltasone)Indic ations:PMR (polymyalgia rheumatica) (HCC) Take 1 Tablet by mouth in the morning. 90 Tablet 4 Active Additional Information Patient not taking.Reported on 09/21/2024 predniSONE 2.5 MG Oral Tablet (Deltasone)Indic ations:PMR (polymyalgia rheumatica) (HCC) Take 1 Tablet by mouth in the morning. 90 Tablet 4 Active Additional Information Patient not taking.Reported on 06/14/2024 Metoprolol Succinate ER 50 MG Oral Tablet Extended Release 24 Hour (toPROL XL) Take 1 Tablet by mouth every evening. 90 Tablet 3 4 Active Atorvastatin Calcium 20 MG Oral Tablet (Lipitor)Indicat ions:Dyslipidemi a, goal LDL below 70 Take 1 Tablet by mouth in the morning. 90 Tablet 3 4 Active Eliquis 5 MG Oral Tablet (Apixaban)Indica tions:Paroxysmal atrial fibrillation (HCC) TAKE 1 TABLET BY MOUTH EVERY MORNING AND 1 TABLET BEFORE BEDTIME 180 Tablet 3 4 Active traZODone HCl 50 MG Oral Tablet (Desyrel)Indicat ions:Insomnia, unspecified type Take 0.5 Tablets by mouth at bedtime. 90 Tablet 1 4 Active Metoprolol Succinate ER 25 MG Oral Tablet Extended Release 24 Hour (toPROL XL)Indications:P aroxysmal atrial fibrillation (HCC) Take 1 Tablet by mouth in the morning. This is in addition to the 50 mg tablet daily. 90 Tablet 3 4 Active Levothyroxine Sodium 50 MCG Oral Tablet (Levoxyl)Indicat ions:Hypothyroid ism, unspecified type TAKE 1&1/2 TABLETS BY MOUTH DAILY ALTERNATING WITH 1 TABLET DAILY (at least 30 min prior to breakfast or other meds) 135 Tablet 3 4 Active metFORMIN HCl ER 500 MG Oral Tablet Extended Release 24 Hour (Glucophage XR)Indications:T ype 2 diabetes mellitus with hemoglobin A1c goal of less than 7.0% ([facility]) Take 1 Tablet by mouth daily. 90 Tablet 3 4 Active OneTouch Ultra Test In Vitro Strip (Glucose Blood)Indication s:Type 2 diabetes mellitus with hemoglobin A1c goal of less than 7.0% ([facility]) Use to check blood sugars once per day Dx E11.9 100 Strip 5 4 Active hydroCHLOROthiaz giuliano 25 MG Oral Tablet (Hydrodiuril)Ind ications:Chronic coronary artery disease,HTN, goal below 130/80 TAKE 1 TABLET BY MOUTH EVERY MORNING 90 Tablet 4 Active predniSONE 5 MG Oral Tablet (Deltasone)Indic ations:PMR (polymyalgia rheumatica) ([facility]) Take 1 Tablet by mouth in the morning. 90 Tablet 4 Active documented as of this encounter (statuses as of 09/21/2024) Active Problems Problem Noted Date Diagnosed Date Cardiac pacemaker in situ 03/02/2024 PMR (polymyalgia rheumatica) 03/02/2024 Recurrent major depressive disorder, in partial remission 12/27/2022 SSS (sick sinus syndrome) 11/18/2022 JEFF (generalized anxiety disorder) 08/21/2022 Panic disorder without agoraphobia 08/21/2022 Multiple lung nodules 05/03/2021 Microcytic anemia 03/05/2021 Bradycardia, sinus 03/05/2021 Type 2 diabetes mellitus wit h hemoglobin A1c goal of less than 7.0% 09/12/2020 Paroxysmal atrial fibrillation 04/05/2020 LBBB (left bundle branch block) 09/03/2015 Hypothyroidism 03/26/2014 INEZ on CPAP 02/14/2012 Overview (04/27/2012): 02/05/12 AHI was 17.1 DME: [facility], [place] Titration study 04/27/12 set pressure of 8 cm HTN, goal below 130/80 01/09/2011 Chronic coronary artery disease 09/15/2010 Overview (09/15/2010): Cath 2006 - 30% mid LAD stenosis Dyslipidemia, goal LDL below 70 09/15/2010 documented as of this encounter (statuses as of 09/21/2024) Resolved Problems Problem Noted Date Diagnosed Date Resolved Date Obstructive sleep apnea 11/28/201101/26 Overview (11/28/2011): AHI 8..2 in April 2008 documented as of this encounter (statuses as of 09/21/2024) Immunizations Name Administration Dates Next Due COVID-19 mRNA, LNP-s, No Pre serve, 2-Dose Series (Moderna) 12/24/2020,11/19/2020 COVID-19, mRNA, LNP-s, PF, B ooster, 100mcg/0.5mg (Moderna) 08/18/2021 Covid-19, Mrna, Lnp-s, Pf, B ivalent, 30 Mcg, IM, 12 yrs and above (Pfizer) 08/01/2022 DT - Diptheria/Tetanus (PEDS) 06/06/2005 Pneumococcal Conjugate Vacc, 13 Valent (Prevnar) 12/13/2015 Pneumococcal Conjugate Vacci ne, 20-valent ([id number]) 09/21/2024 Pneumococcal Polysaccharide PPV23 (Pneumovax) 08/22/2014 Seasonal Influenza Vac., MDV , IM, 0.5 mL (Fluzone) 08/13/2013 Seasonal Influenza, High Dos e, Trivalent, PF, IM (Fluzone HD) 09/21/2024 Seasonal Influenza, PF, 6 M & above, IM , (FluLaval or Fluzone) 09/14/2018 Seasonal Influenza, Quadriva lent Hd (Fluzone Hd) 07/04/2023,06/28/2022 Seasonal Influenza, Quadriva lent, No Preserve, IM 07/09/2021,09/04/2020,09/10/2019,09/14,09/11/2018,10/07/2017,09/09/2016 ,09/09/2016,08/30/2015,08/22/2014,07/27,09/09/2005,09/08/2003, 2 TDAP (age 10 and older)(Boostrix) 07/18/2015 Varicella Zoster Vaccine (Adult) 06/14/2015 Zoster Vaccine Recombinant (Shingrix) 07/16/2023 ,12/27/2022 documented as of this encounter Social History Tobacco Use Types Packs/Day Years Used Date Smoking Tobacco: Never Passive Smoke Exposure: Never Smokeless Tobacco: Never Alcohol Use Standard Drinks/Week Comments Not Currently 0 (1 standard drink = 0.6 oz pur e alcohol) PHQ-2 Answer Date Recorded PHQ Adult Total Score 0 06/14/2024 Hunger Vital Sign Answer Date Recorded Within the past 12 months, y ou worried that your food would run out before you got the money to buy more. Never true 01/06/20 24 Within the past 12 months, t he food you bought just didn't last and you didn't have money to get more. Never true 01/06/2024 Childcare Answer Date Recorded Do you feel overwhelmed with taking care of a child, family member or friend? No 01/06/2024 Does your family need help f inding childcare? (Household - for ages 0-17 years) Not on file 01/06/2024 Clothing Answer Date Recorded Have you been unable to get clothing when it was really needed? No 01/06/2024 Is your family able to get c lothes or diapers when needed? (Household - for ages 0-17 years) Not on file 01/06/2024 Personal Safety Answer Date Recorded Do you feel unsafe or have concerns for your saf ety? No 01/06/2024 Do you have concerns for you r family's safety? (Household - for ages 0-17 years) Not on file 01/06/2024 Utilities Answer Date Recorded Do you have trouble paying y our heating, water, or electric bill? No 01/06/2024 Is your family able to pay t he heat, water, or electric bill? (Household - for ages 0-17 years) Not on file 01/06/2024 Does your family have access to good internet? (Household - for ages 0-17 years) Not on file 01/06/2024 Employment Status Answer Date Recorded Are you unemployed or without regular income? No 01/06/2024 Does the household have a [facility] source of income? (Household - for ages 0-17 years) Not on file 01/06/2024 Social Connections Answer Date Recorded How often do you feel lonely or isolated from th ose around you? Never 01/06/2024 Financial Resource Strain Answer Date R ecorded Do you have any trouble payi ng for your medications, or do you think you might in the future? No 01/06/2024 Does your family have troubl e paying for medicine? (Household - for ages 0-17 years) Not on file 01/06/2024 Transportation Needs Answer Date Record ed READ ONLY Do you have troubl e getting a ride to medical visits or work? Never True 01/06/2024 Does your family have a hard time getting a ride to doctors visits? (Household - for ages 0-17 years) Not on file 01/06/2024 Has lack of transportation k ept you from medical appointments, meetings, work, or from getting things needed for daily living? Check all that apply. (Adult - for ages 18 years and over) Not on file 01/06/2024 Do you (or your family) have trouble finding or paying for a ride (transportation)? (Household - for ages 0-17 years) Not on file 01/06/2024 Housing Stability Answer Date Recorded Do you currently live in a s helter or have no steady place to sleep at night? No 01/06/2024 READ ONLY Do you think you a re at risk of becoming homeless? No 01/06/2024 Does your family worry about paying for your home or becoming homeless? (Household - for ages 0-17 years) Not on file 0 01/06/2024 Are you homeless or worried that you might be in the future? (Adult - for ages 18 years and over) Not on file Are you (or your family) paradise eless or worried that you might be in the future? (Household - for ages 0-17 years) Not on file Food Insecurity Answer Date Recorded Do you need food for this week? No 01/06/2024 Are you able to get enough f ood for your family? (Household - for ages 0-17 years) Not on file 01/06/2024 Does your family need food t his week? (Household - for ages 0-17 years) Not on file 01/06/2024 Do you always have enough fo od for your family? (Household - for ages 0-17 years) Not on file 01/06/2024 Comments No Sex and Gender Information Value Date Recorded Sex Assigned at Female 06/03/2022 9:57 PM EDT Legal Sex Female 7:14 AM EST Gender Identity Female 06/03/2022 9:57 PM EDT Sexual Orientation Straight 06/03/2022 9: 57 PM EDT documented as of this encounter Plan of Treatment Upcoming Encounters Date Type Department Care Team (Late st Contact Info) Description 10/22/2024 8:45 AM EST Office Visit Cardiology, [facility] [address] [place] [address] Nora Antonio, [address] [place] [address] 12/14/2024 9:30 AM EST Office Visit Cardiology, [facility] [address] [place] [address] Nicole Severino PA-C [address] [place] [id number] 01/20/2025 10:40 AM EDT Telemedicine [address] [address] Tessa Duque, DO [address] [place] [address] 03/24/2025 9:40 AM EDT Office Visit [facility], [place] [facility] [place] [address] [place] [phone] Dylan Barros MD [address] [place] [address] 04/01/2025 11:20 AM EDT Office Visit [facility] [address] [place] [phone] Riddhi Cook, [address] [place] [address] Pending Results Name Type Priority Associated Diagnoses Date /Time HEMOGLOBIN A1C Lab Routine Type 2 diabetes mellitus with hemoglobin A1c goal of less than 7.0% ([facility]) 09/21/2024 8:56 AM EST TSH WITH FREE T4 IF INDICATED Lab Routine Hypothyroidism, unspecified type 09/21/2024 8:56 AM EST LIPID PANEL WITH DIRECT LDL IF TG IS HIGH Lab Routine Dyslipidemia, goal LDL below 70 09/21/2024 8:56 AM EST COMPREHENSIVE METABOLIC PANEL Lab Routine Type 2 diabetes mellitus with hemoglobin A1c goal of less than 7.0% ([facility]) 09/21/2024 8:56 AM EST CBC Lab Routine Encounter for long-term (current) use of medications 09/21/2024 8:56 AM EST VITAMIN B12 Lab Routine Encounter for long-term (current) use of medications 09/21/2024 8:56 AM EST Scheduled Procedures Name Priority Associated Diagnoses Date/Ti me COLONOSCOPY FLEXIBLE PROXIMA L DIAGNOSTIC Recall History of colonic polyps Health Maintenance Due Date Last Done Comments Cologuard 1995 Sigmoidoscopy 1995 Fecal Occult Blood Test 07/07/2001 07/07/2000 Adult Wellness Visit 2016 COVID-19 Vaccine ( season) 2024 08/01/2022, 08/18/2021, 12/24/2020, Additional history exists Albumin/Creatinine Ratio 07/08/2024 07/08/2023, 08/0 06/2022 HbA1c 09/01/2024 03/01/2024, 06/27, 11/26/2022, Additional history exists TSH 01/05/2025 01/06/2024, 06/27, 12/27/2022, Additional history exists Mammogram 01/19/2025 01/20/2024, 12/26, 07/15/2001 GFR 03/19/2025 03/19/2024, 02/24, 03/01/2024, Additional history exists DXA Scan 04/30/2025 04/30/2018 Depression Monitoring 06/14/2025 06/14/2024 DTap/Tdap Vaccines (3 - Td or Tdap) 07/18/2025 07/18/2015, 06/06/2005 Diabetic Eye Exam 09/17/2025 09/17/2024 (Do ne elsewhere), 09/15/2023, 08/29/2022 Colonoscopy 01/14/2027 01/15/2024, 12/26, 02/26/2021 Colorectal Cancer Screening 01/14/2027 Diabetic Foot Exam Discontinued 06/28/2022 Zoster Vaccines Completed 07/16/2023, 03/0 12/2022, 06/14/2015 Influenza Vaccine (FLU shot) Completed 09/21/2024, 07/04/2023, 06/28/2022, Additional history exists Pneumococcal Vaccine: 65+ Years Completed 09/21/2024, 12/13/2015, 08/22/2014 HPV (Gardasil) Vaccine Aged Out No lo nger eligible based on patient's age to complete this topic Hepatitis B Vaccine Aged Out No longe r eligible based on patient's age to complete this topic MENINGOCOCCAL (MENACTRA/MENVEO) Aged Out No longer eligible based on patient's age to complete this topic documented as of this encounter Medical Devices Implanted Type Area Geography Department Chair Device Identifier Shelf Expiration Date Model / Serial / Lot Lead Pace Selectsecure [id number] - [id number] Implanted:Qty: 1 on 11/18/2022 by Nora Antonio DO at OR [facility] Lead Left: Heart [employer] : FORMERLY [facility], 1928–1983 10/18/2024 [id number] / / Description:RV LBBB Lead Novus Bipolar 52cm - [id number] - [id number] Implanted:Qty: 1 on 11/18/2022 by Nora Antonio DO at OR [facility] Lead Left: Heart [employer] : CAR 09/23/2024 [id number] / [id number] / Description:RA Pacemaker [place] Xt Dr Banks ls - [id number] - [id number] Implanted:Qty: 1 on 11/18/2022 by Nora Antonio DO at OR [facility] Pacemaker Left: Chest [employer] 04/09/2024 [id number] / [id number] / Lens Intraoc 26.5 - [id number] - [id number] Implanted:Qty: 1 on 02/23/2019 by Jonas Valentino MD at OR [facility] Right: Eye [employer] 05/26/2023 [id number] / [id number] / [id number] Lens Intraoc 24.5 - [id number] - [id number] Implanted:Qty: 1 on 03/02/2019 by Jonas Vlaentino MD at OR [facility] Left: Eye [employer] 08/26/2023 [id number] / [id number] / [id number] Envelope Antibacterial Tyrx - [id number] Implanted:Qty: 1 on 11/18/2022 by Nora Antonio DO at OR [facility] [employer] : [facility]LY [facility], 1928–1983 [id number] 08/09/2023 [facility] [id number] / / [id number] documented as of this encounter Visit Diagnoses Diagnosis Type 2 diabetes mellitus with hemoglobin A1c goal of less than 7.0% (HCC) Hypothyroidism, unspecified type Dyslipidemia, goal LDL below 70 Other and unspecified hyperlipidemia Encounter for long-term (current) use of medications Encounter for long-term (current) use of other medications documented in this encounter Advance Directives * Full Code (Latest Code Status on File) Date Activated Date Inactivated Comments 04/05/2021 7:37 AM 04/05/2021 4:11 PM This order r eflects the patients wishes and were consensually agreed upon. Question Answer Comments Discussion of Advance Directives occurred with: Not Discussed Care Teams Channel Marketing Program Manager Relationship Specialty Start Date End Date Dylan Barros MD [address] [facility] [place] [id number] PCP - General Family Medicine 11/07/23 documented as of this encounter
--- OUTSIDE RECORDS SUMMARY | 2024-09-24 19:25 | External Medical Summary | Summary of Care ---
Author Name Unknown Organization [facility] Address [address] [place] [address] Phone [phone] Care Team Providers Care Lead Welder Name Role Phone Dylan Barros MD Primary Care Provider [phone] Reason for Visit * Reason Onset Date Comments Follow Up Pt here today fo r 6 month follow up Medication Administration 09/21/2024 Flu an d/or Pneumo Inj Encounter Details Date Type Department Care Team (Late st Contact Info) Description 09/21/2024 8:00 AM EST Office Visit [facility] [address] [place] [phone] Dylan Barros MD [address] [place] [address] Type 2 diabetes mellitus with hemoglobin A1c goal of less than 7.0% ([facility])*; Need for pneumococcal vaccination; Need for prophylactic vaccination and inoculation against influenza; Hypothyroidism, unspecified type; Risk and functional assessment; Dyslipidemia, goal LDL below 70; Encounter for long-term (current) use of medications; PMR (polymyalgia rheumatica) ([facility]); INEZ on CPAP; Cardiac pacemaker in situ; Paroxysmal atrial fibrillation ([facility]); JEFF (generalized anxiety disorder) Allergies Active Allergy [...] before bedtime. 180 Tablet 3 4 Active ZendriveTouch Verio w/Device Kit Use up to 4 [...] hemoglobin A1c goal of less than 7.0% ([facility]) Take 1 Tablet by mouth daily. 90 Tablet 3 4 Active SaveMeetinguch Ultra Test In Vitro Strip (Glucose Blood)Indication s:Type 2 diabetes mellitus with hemoglobin A1c goal of less than 7.0% ([facility]) Use to check blood sugars once per day Dx E11.9 100 Strip 5 4 Active hydroCHLOROthiaz giuliano 25 MG Oral Tablet (Hydrodiuril)Ind ications:Chronic coronary artery disease,HTN, goal below 130/80 TAKE 1 TABLET BY MOUTH EVERY MORNING 90 Tablet 4 Active predniSONE 5 MG Oral Tablet (Deltasone)Indic ations:PMR (polymyalgia rheumatica) ([facility]) Take 1 Tablet by mouth in the [...] AHI was 17.1 DME: [facility], [place] Titration study 04/27/12 set pressure of 8 cm HTN, goal below 130/80 01/09/2011 Chronic coronary artery disease 09/15/2010 Overview (09/15/2010): Cath 2006 - 30% mid LAD stenosis Dyslipidemia, goal LDL below 70 09/15/2010 documented as of this encounter (statuses as of 09/21/2024) Resolved Problems Problem Noted Date Diagnosed Date Resolved Date Obstructive sleep apnea 11/28/2011 04 Overview (11/28/2011): AHI 8..2 in April 2008 documented as of this encounter (statuses as of 09/21/2024) Immunizations Name Administration Dates Next Due COVID-19 mRNA, LNP-s, No Pre serve, 2-Dose Series (Moderna) 12/24/2020,11/19/2020 COVID-19, mRNA, LNP-s, PF, B ooster, 100mcg/0.5mg (Moderna) 08/18/2021 Covid-19, Mrna, Lnp-s, Pf, B ivalent, 30 Mcg, IM, 12 yrs and above (Astrostar) 08/01/2022 DT - Diptheria/Tetanus (PEDS) 06/06/2005 Pneumococcal Conjugate Vacc, 13 Valent (Prevnar) 12/13/2015 Pneumococcal Conjugate Vacci ne, 20-valent ([id number]) 09/21/2024 Pneumococcal Polysaccharide PPV23 (Pneumovax) 08/22/2014 Seasonal [...] No 01/06/2024 Does the household have a [facility] source of income? (Household - for ages [...] PM EDT documented as of this encounter Last Filed Vital Signs Vital Sign Reading Time Taken Comments Blood Pressure 101/59 09/21/2024 8:02 AM EST Pulse 77 09/21/2024 8:02 AM EST Temperature 36.3 C (97.3 F) 09/21/2024 8:02 AM ES T Respiratory Rate 18 09/21/2024 8:02 AM EST Oxygen Saturation 96% 09/21/2024 8:02 AM EST Inhaled Oxygen Concentration - - Weight 99.7 kg (219 lb 14.4 oz) 09/21/2024 8:02 AM EST Height - - Body Mass Index 38.95 08/12/2024 4:35 PM EDT documented in this encounter Patient Instructions * Patient Instructions* Mary Kate Mtz LPN - 09/21/2024 8:02 AM EST ~~PATIENT INSTRUCTIONS FOR PNEUMOCOCCAL VACCINE~~ Possible side effects of pneumococcal vaccine, (pneumonia shot), are usually mild and can include: 1. Soreness or redness at injection site 2. Low grade fever 3. Body aches You may use Tylenol/Acetaminophen as needed for these symptoms. LET YOUR DOCTOR KNOW IMMEDIATELY IF YOU HAVE DIFFICULTY BREATHING OR SWALLOWING, EXPERIENCE ITCHINGOF FEET OR HANDS, HAVE SWELLING OF EYES, FACE OR INSIDE OF NOSE. ~~PATIENT INSTRUCTIONS FOR FLU SHOT~~ Possible side effects of influenza vaccine, (flu shot), are usually mild and include: 1. Soreness or redness at injection site 2. Low grade fever 3. Body aches You may use Tylenol/Acetaminophen as needed for these symptoms. LET YOUR DOCTOR KNOW IMMEDIATELY IF YOU HAVE DIFFICULTY BREATHING OR SWALLOWING, EXPERIENCE ITCHINGOF FEET OR HANDS, HAVE SWELLING OF EYES, FACE OR INSIDE OF NOSE. documented in this encounter Progress Notes * Dylan Barros MD - 09/21/2024 8:32 AM EST Subjective: Ángel Kim is a 74 year old female here today for Chief Complaint Patient presents with Follow Up Pt here today for 6 month follow up Medication Administration Flu and/or Pneumo Inj Presents for routine six-month return. She is following with Rheumatology for polymyalgia rheumatica. Her prednisone dose is at 8 milligrams daily. She has not been able to wean further yet. She has been asked to try to wean by a milligram every 4 weeks. Next visit is in December. She does believe theprednisone is contributing to difficulties with weight loss. She is due for repeat labs today. Last hemoglobin A1c was 7.0. We did review the GLP-1 class of medication given her concerns about weight. She is not interested at this time. She is on metformin andJardiance. She is also working with Cardiology on her paroxysmal atrial fibrillation. She has a pacemaker in place. She is going to be discussing possible ablation with Cardiology in September. She is agreeable to influenza and pneumococcal vaccinations. No other acute complaints today. Past Medical History: Diagnosis Date Anxiety Arthritis osto Atrial fibrillation (HCC) Cataract surgery Depression Diabetes mellitus (HCC) GERD (gastroesophageal reflux disease) Hearing loss Hypertension Left bundle branch block Obesity Osteoporosis SSS (sick sinus syndrome) (HCC) Thyroid disease Varicella disease as a child Past Surgical History: Procedure Laterality Date CATARACT SURGERY,COMPLEX CERV DISC ARTHROPLAST,REMOVE,ADDL INTERSPCE COLONOSCOPY, DIAGNOSTIC (RECTUM) 01/15/2024 diverticulosis/recall 3 years/COLONOSCOPY FLEXIBLE PROXIMAL DIAGNOSTIC performed by Denita Davila, [place] ENDOSCOPY [facility] EGD, FLEXIBLE, DIAGNOSTIC 09/04/2015 gastritis/inpt [facility] HEMORRHOIDECTOMY, INTERNAL, 2 + COLUMNS N/A 05/31/2021 HEMORRHOIDECTOMY EXTERNAL AND INTERNAL COMPLEX performed by Jaky Sanches MD at OR [facility] INFORMATION 03/22/2021 Bronchoscopy. INSERT/REPLACE PACEMAKER,ATRIAL/VENTRICULAR Left 11/18/2022 NEW DDD PACEMAKER IMPLANT performed by Nora Antonio DO at OR [facility] OTHER 1994 lumbar discectomy REMOVE CATARACT, INSERT LENS PROSTH Right 02/23/2019 right EXTRACAPSULAR CATARACT REMOVAL WITH INTRAOCULAR LENS performed by Jonas Valentino MD at [facility] REMOVE CATARACT, INSERT LENS PROSTH Left 03/02/2019 left EXTRACAPSULAR CATARACT REMOVAL WITH INTRAOCULAR LENS performed by Jonas Valentino MD at OR [facility] TOTAL ABD HYSTERECTOMY W/WO REMOVAL OF TUBE(S) [...] Take 1 Capsule by mouth every evening. Sertraline HCl 100 MG Oral Tablet (Zoloft) TAKE 1 & 1/2 TABLETS BY MOUTH DAILY IN THE MORNING 135 Tablet 3 Empagliflozin 10 MG Oral Tablet (Jardiance) Take 1 Tablet by mouth in the morning. 90 Tablet 3 Potassium Chloride Tish ER 20 MEQ Oral Tablet Extended Release Take 1 Tablet by mouth in the morning and 1 Tablet before bedtime. 180 Tablet 3 OneTouch Verio w/Device Kit Use up to 4 times a day E11.9 1 Kit 0 Metoprolol Succinate ER 50 MG Oral Tablet Extended Release 24 Hour (toPROL XL) Take 1 Tablet by mouth every evening. 90 Tablet 3 Atorvastatin Calcium 20 MG Oral Tablet (Lipitor) Take 1 Tablet by mouth in the morning. 90 Tablet 3 Eliquis 5 MG Oral Tablet (Apixaban) TAKE 1 TABLET BY MOUTH EVERY MORNING AND 1 TABLET BEFORE BEDTIME 180 Tablet 3 traZODone HCl 50 MG Oral Tablet (Desyrel) Take 0.5 Tablets by mouth at bedtime. 90 Tablet 1 Metoprolol Succinate ER 25 MG Oral Tablet Extended Release 24 Hour (toPROL XL) Take 1 Tablet by mouth in the morning. This is in addition to the 50 mg tablet daily. 90 Tablet 3 Levothyroxine Sodium 50 MCG Oral Tablet (Levoxyl) TAKE 1&1/2 TABLETS BY MOUTH DAILY ALTERNATINGWITH 1 TABLET DAILY (at least 30 min prior to breakfast or other meds) 135 Tablet 3 metFORMIN HCl ER 500 MG Oral Tablet Extended Release 24 Hour (Glucophage XR) Take 1 Tablet by mouthdaily. 90 Tablet 3 OneTouch Ultra Test In Vitro Strip (Glucose Blood) Use to check blood sugars once per day Dx E11.9 100 Strip 5 hydroCHLOROthiazide 25 MG Oral Tablet (Hydrodiuril) TAKE 1 TABLET BY MOUTH EVERY MORNING 90 Tablet 0 predniSONE 5 MG Oral Tablet (Deltasone) Take 1 Tablet by mouth in the morning. 90 Tablet 0 predniSONE 10 MG Oral Tablet (Deltasone) Take 1 Tablet by mouth in the morning. (Patient not taking: Reported on 09/21/2024) 90 Tablet 0 predniSONE 2.5 MG Oral Tablet (Deltasone) Take 1 Tablet by mouth in the morning. (Patient not taking: Reported on 06/14/2024) 90 Tablet 0 No current facility-administered medications for this visit. Objective: BP 101/59 | Pulse 77 | Temp 97.3 F (36.3 C) (Infrared ) | Resp 18 | Wt 219 lb 14.4 oz (99.7 kg) | LMP 08/19/2000 | SpO2 96% | BMI 38.95 kg/m | BSA 2.11 m GEN: NAD HEENT: Benign NECK: Supple with no LAD, TM, JVD CHEST: CTA B CV: RRR ABD: Soft, NT/ND, No HSM, NABS EXT: No c,c,e Assessment and Plan: Type 2 diabetes mellitus with hemoglobin A1c goal of less than 7.0% ([facility]) (Primary) - HEMOGLOBIN A1C; Future; Expected date: 09/21/2024 - COMPREHENSIVE METABOLIC PANEL; Future; Expected date: 09/21/2024 -continue current meds and update labs Need for pneumococcal vaccination - PNEUMOCOCCAL VACC, PCV20, IM ([id number]) Need for prophylactic vaccination and inoculation against influenza - INFLUENZA VAC., TRIVALENT, HD, PF, 65 AND ABOVE, 0.5 ML IM (FLUZONE HD) Hypothyroidism, unspecified type - TSH WITH FREE T4 IF INDICATED; Future; Expected date: 09/21/2024 Risk and functional assessment Dyslipidemia, goal LDL below 70 - LIPID PANEL WITH DIRECT LDL IF TG IS HIGH; Future; Expected date: 09/21/2024 Encounter for long-term (current) use of medications - CBC; Future; Expected date: 09/21/2024 - VITAMIN B12; Future; Expected date: 09/21/2024 PMR (polymyalgia rheumatica) ([facility]) -continue to try and wean prednisone usage by 1 milligram every 4 weeks and keep follow-up with Rheumatology. INEZ on CPAP -continue treatment with CPAP Cardiac pacemaker in situ Paroxysmal atrial fibrillation (HCC) -follow up with Cardiology in September to discuss possible ablation JEFF (generalized anxiety disorder) -continue current meds, stable Follow Up: Return in about 6 months (around 03/21/2025) for recheck. | For: recheck | Check-out note: Labs today 36 min with pt and documentation Dylan Barros MD * Mary Kate Mtz LPN - 09/21/2024 8:02 AM EST . documented in this encounter Nursing Notes * Mary Kate Mtz LPN - 09/21/2024 7:53 AM EST Chief Complaint Patient presents with Follow Up Pt here today for 6 month follow up documented in this encounter Plan of Treatment Upcoming Encounters Date Type Department Care Team (Late st Contact Info) Description 10/22/2024 8:45 AM EST Office Visit Cardiology, [facility] [address] [facility] [place] [address] Nora Antonio, DO [address] [place] [address] 12/14/2024 9:30 AM EST Office Visit Cardiology, [facility] [address] [place] [phone] Nicole Severino PA-C [address] [facility] [place] [phone] 01/20/2025 10:40 AM EDT Telemedicine Rheumatology, [place] [address] [place] [address] Tessa Duque, [address] [place] [address] 03/24/2025 9:40 AM EDT Office [facility] [phone] Dylan [facility]ros MD [address] [facility] [place] [phone] 04/01/2025 11:20 AM EDT Office Visit Sleep Disorders [facility] [address] [place] [phone] Riddhi Cook, DO [address] [facility] [place] [address] Pending Results Name Type Priority Associated Diagnoses Date /Time HEMOGLOBIN A1C Lab Routine Type 2 diabetes mellitus with hemoglobin A1c goal of less than 7.0% (HCC) 09/21/2024 8:56 AM EST TSH WITH FREE T4 IF INDICATED Lab Routine Hypothyroidism, unspecified type 09/21/2024 8:56 AM EST LIPID PANEL WITH DIRECT LDL IF TG IS HIGH Lab Routine Dyslipidemia, goal LDL below 70 09/21/2024 8:56 AM EST COMPREHENSIVE METABOLIC PANEL Lab Routine Type 2 diabetes mellitus with hemoglobin A1c goal of less than 7.0% (HCC) 09/21/2024 8:56 AM EST CBC Lab Routine Encounter for long-term (current) use of medications 09/21/2024 8:56 AM EST VITAMIN B12 Lab Routine Encounter for long-term (current) use of medications 09/21/2024 8:56 AM EST Scheduled Orders Name Type Priority Associated Diagnoses Orde r Schedule HEMOGLOBIN A1C Lab Routine Type 2 diabetes mellitus with hemoglobin A1c goal of less than 7.0% (HCC) Expected: 09/21/2024 (Approximate), Expires: 10/21/2025 TSH WITH FREE T4 IF INDICATED Lab Routine Hypothyroidism, unspecified type Expected: 09/21/2024 (Approximate), Expires: 09/21/2025 LIPID PANEL WITH DIRECT LDL IF TG IS HIGH Lab Routine Dyslipidemia, goal LDL below 70 Expected: 09/21/2024, Expires: 09/21/2025 COMPREHENSIVE METABOLIC PANEL Lab Routine Type 2 diabetes mellitus with hemoglobin A1c goal of less than 7.0% (HCC) Expected: 09/21/2024 (Approximate), Expires: 09/21/2025 CBC Lab Routine Encounter for long-term (current) use of medications Expected: 09/21/2024 (Approximate), Expires: 09/21/2025 VITAMIN B12 Lab Routine Encounter for long-term (current) use of medications Expected: 09/21/2024 (Approximate), Expires: 09/21/2025 Scheduled Procedures Name Priority Associated Diagnoses Date/Ti [...] this encounter Medical Devices Implanted Type Area Travel Occupational Therapist Device Identifier Shelf Expiration Date Model / Serial / Lot Lead Pace [id number] - [id number] Implanted:Qty: 1 on 11/18/2022 by Nora Antonio DO at OR [facility] Lead Left: Heart [employer] : [facility] 10/18/2024 [id number] / / Description:RV LBBB Lead Novus Bipolar 52cm - [id number] - [id number] Implanted:Qty: 1 on 11/18/2022 by Nora Antonio DO at OR [facility] Lead Left: Heart [employer] : CAR 09/23/2024 [id number] / [id number] / Description:RA Pacemaker [place] Xt Dr Jocelyn [facility] - [id number] - [id number] Implanted:Qty: 1 on 11/18/2022 by Nora Antonio DO at OR [facility] Pacemaker Left: Chest [employer] 04/09/2024 [id number] / [id number] / Lens Intraoc 26.5 - [id number] - [id number] Implanted:Qty: 1 on 02/23/2019 by Jonas Valentino MD at OR [facility] Right: Eye [employer] 05/26/2023 [id number] / [id number] / [id number] Lens Intraoc 24.5 - [id number] - [id number] Implanted:Qty: 1 on 03/02/2019 by Jonas Valentino MD at OR [facility] Left: Eye [employer] 08/26/2023 [id number] / [id number] / [id number] Envelope Antibacterial Tyrx - [id number] Implanted:Qty: 1 on 11/18/2022 by Nora Antonio DO at OR [facility] [employer] [facility] [id number] 08/09/2023 [facility] [id number] / / [id number] documented as of this encounter Visit Diagnoses Diagnosis Type 2 diabetes mellitus with hemoglobin A1c goal of less than 7.0% (HCC)- Primary Need for pneumococcal vaccination Need for prophylactic vaccination against streptococcus pneumoniae (pneumococcus) Need for prophylactic vaccination and inoculation against influenza Hypothyroidism, unspecified type Risk and functional assessment Screening for unspecified condition Dyslipidemia, goal LDL below 70 Other and unspecified hyperlipidemia Encounter for long-term (current) use of medications Encounter for long-term (current) use of other medications PMR (polymyalgia rheumatica) (HCC) Polymyalgia rheumatica INEZ on CPAP Obstructive sleep apnea (adult) (pediatric) Cardiac pacemaker in situ Paroxysmal atrial fibrillation (HCC) Atrial fibrillation JEFF (generalized anxiety disorder) Generalized anxiety disorder documented in this encounter Advance Directives * Full Code (Latest Code Status on File) Date Activated Date Inactivated Comments 04/05/2021 7:37 AM 04/05/2021 4:11 PM This order r eflects the patients wishes and were consensually agreed upon. Question Answer Comments Discussion of Advance Directives occurred with: Not Discussed Care Teams Lead Welder Relationship Specialty Start Date End Date Dylan Barros MD [address] [place] [address] PCP - General Family Medicine 11/07/23 documented as of this encounter"
--- OUTSIDE RECORDS SUMMARY | 2024-09-24 19:26 | External Medical Summary | Summary of Care ---
Author Name Unknown Organization [facility] Address [address] [place] [address] Phone [phone] Care Team Providers Care Small Arms Repairer Name Role Phone Dylan Barros MD Primary Care Provider [phone]- [phone] Reason for Referral * Evaluate & Treat - Unlimited Visits (Within 30 days (routine)) - Authorized Specialty Diagnoses / Procedures Referred By Contact Referred To Contact Cardiac Electrophysiology / Cardiology Diagnoses PAF (paroxysmal atrial fibrillation) (HCC) SSS (sick sinus syndrome) (HCC) LBBB (left bundle branch block) Cardiac pacemaker in situ Nora Antonio DO [address] [place] [address] [place] [facility] [address] [place] [address] Referral ID Status Reason Start Date Expiration Date Visits Requested Visits Authorized [id number] Authorized Specialty Services Required 4 999 999 Question Answer Referral Priority Within 30 days (routine) Where should this appointment be scheduled? [facility] Comments Recurrent PAF; symptomatic. Has pacemaker - consider antiarrhythmic vs possible ablation Reason for Visit * Reason Onset Date Comments Pacemaker Clinic 08/19/2024 Remote transmis jamie Encounter Details Date Type Department Care Team (Late st Contact Info) Description 08/19/2024 Telephone Cardiology, [facility] [address] [facility] [place] [address] [place], Pacer Clinic [facility] [address] [place] [address] Pacemaker Clinic (Remote transmission ) Allergies Active Allergy Reactions Criticality Noted Date Comments Albuterol High 04/04/2022 Other reaction(s): racing heart Citalopram 04/04/2022 Other reaction(s): Unknown Sulfa Antibiotics Hives Medium 07/07/2000 documented as of this encounter (statuses as of 08/23/2024) Medications Medication Sig Dispensed Refills Start Date End Date Status MULTIVITAMINS PO TABS 1 tablet daily Active ASPIRIN 81 MG PO TABS Take by mouth at bedtime. Active NITROGLYCERIN 0.[address] under the tongue. 25 Tab 11 10/04/2011 Active VITAMIN D3 1000 UNITS PO TABS 2 TABLETS DAILY 02/07/2014 Active LORazepam (ATIVAN) 1 MG Tablet One tablet every 8 hours as needed 11/15/2015 Active CPAP every night at bedtime. Active Docusate Sodium 100 MG Oral Capsule Take 1 Capsule by mouth every evening. Active Sertraline HCl 100 MG Oral Tablet (Zoloft)Indication s:Recurrent major depressive disorder, in partial remission (HCC) TAKE 1 & 1/2 TABLETS BY MOUTH DAILY IN THE MORNING 135 Tablet 3 03/01/2024 Active Empagliflozin 10 MG Oral Tablet (Jardiance) Take 1 Tablet by mouth in the morning. 90 Tablet 3 03/02/2024 Active Potassium Chloride Tish ER 20 MEQ Oral Tablet Extended ReleaseIndications :HTN, goal below 130/80,Paroxysmal atrial fibrillation (HCC) Take 1 Tablet by mouth in the morning and 1 Tablet before bedtime. 180 Tablet 3 03/10/2024 Active OneTouch Verio w/Device Kit Use up to 4 times a day E11.9 1 Kit 03/23/2024 Active predniSONE 10 MG Oral Tablet (Deltasone)Indicat ions:PMR (polymyalgia rheumatica) (HCC) Take 1 Tablet by mouth in the morning. 90 Tablet 04/09/2024 Active predniSONE 5 MG Oral Tablet (Deltasone)Indicat ions:PMR (polymyalgia rheumatica) (HCC) Take 1 Tablet by mouth in the morning. 90 Tablet 04/09/2024 Active Additional Information Patient not taking.Reported on 06/14/2024 predniSONE 2.5 MG Oral Tablet (Deltasone)Indicat ions:PMR (polymyalgia rheumatica) (HCC) Take 1 Tablet by mouth in the morning. 90 Tablet 04/09/2024 Active Additional Information Patient not taking.Reported on 06/14/2024 Metoprolol Succinate ER 50 MG Oral Tablet Extended Release 24 Hour (toPROL XL) Take 1 Tablet by mouth every evening. 90 Tablet 3 04/27/2024 Active Atorvastatin Calcium 20 MG Oral Tablet (Lipitor)Indicatio ns:Dyslipidemia, goal LDL below 70 Take 1 Tablet by mouth in the morning. 90 Tablet 3 05/10/2024 Active Eliquis 5 MG Oral Tablet (Apixaban)Indicati ons:Paroxysmal atrial fibrillation (HCC) TAKE 1 TABLET BY MOUTH EVERY MORNING AND 1 TABLET BEFORE BEDTIME 180 Tablet 3 05/31/2024 Active predniSONE 1 MG Oral Tablet (Deltasone)Indicat ions:PMR (polymyalgia rheumatica) (HCC) Take 4 Tablets by mouth in the morning. 360 Tablet 06/03/2024 09/01/2024 Active Additional Information Patient not taking.Reported on 08/12/2024 traZODone HCl 50 MG Oral Tablet (Desyrel)Indicatio ns:Insomnia, unspecified type Take 0.5 Tablets by mouth at bedtime. 90 Tablet 1 06/14/2024 Active Metoprolol Succinate ER 25 MG Oral Tablet Extended Release 24 Hour (toPROL XL)Indications:Par oxysmal atrial fibrillation (HCC) Take 1 Tablet by mouth in the morning. This is in addition to the 50 mg tablet daily. 90 Tablet 3 06/15/2024 Active Levothyroxine Sodium 50 MCG Oral Tablet (Levoxyl)Indicatio ns:Hypothyroidism, unspecified type TAKE 1&1/2 TABLETS BY MOUTH DAILY ALTERNATING WITH 1 TABLET DAILY (at least 30 min prior to breakfast or other meds) 135 Tablet 3 06/16/2024 Active metFORMIN HCl ER 500 MG Oral Tablet Extended Release 24 Hour (Glucophage XR)Indications:Typ e 2 diabetes mellitus with hemoglobin A1c goal of less than 7.0% (HCC) Take 1 Tablet by mouth daily. 90 Tablet 3 07/10/2024 Active OneTouch Ultra Test In Vitro Strip (Glucose Blood)Indications: Type 2 diabetes mellitus with hemoglobin A1c goal of less than 7.0% (HCC) Use to check blood sugars once per day Dx E11.9 100 Strip 5 07/13/2024 Active hydroCHLOROthiazid e 25 MG Oral Tablet (Hydrodiuril)Indic ations:Chronic coronary artery disease,HTN, goal below 130/80 TAKE 1 TABLET BY MOUTH EVERY MORNING 90 Tablet 08/02/2024 Active Doxycycline Hyclate 100 MG Oral CapsuleIndications :Skin infection Take 1 Capsule by mouth in the morning and 1 Capsule before bedtime. Do all this for 10 days. Until gone.. 20 Capsule 08/12/2024 08/22/2024 documented as of this encounter (statuses as of 08/23/2024) Active Problems Problem Noted Date Diagnosed Date [...] as of this encounter (statuses as of 08/23/2024) Resolved Problems Problem Noted Date Diagnosed Date Resolved Date Obstructive sleep apnea 11/28/2011 04/ Overview: AHI 8..2 in April 2008 documented as of this encounter (statuses as of 08/23/2024) Immunizations Name Administration Dates Next Due COVID-19 mRNA, LNP-s, No Pre serve, 2-Dose Series (Moderna) 12/24/2020,11/19/2020 COVID-19, mRNA, LNP-s, PF, B ooster, 100mcg/0.5mg (Moderna) 08/18/2021 Covid-19, Mrna, Lnp-s, Pf, B ivalent, 30 Mcg, IM, 12 yrs and above (Pfizer) 08/01/2022 DT - Diptheria/Tetanus (PEDS) 06/06/2005 Pneumococcal Conjugate Vacc, 13 Valent (Prevnar) 12/13/2015 Pneumococcal Polysaccharide PPV23 (Pneumovax) 08/22/2014 Seasonal Influenza Vac., MDV , IM, 0.5 mL (Fluzone) 08/13/2013 Seasonal Influenza, PF, 6 M & above, [...] encounter Miscellaneous Notes * Telephone Encounter - Marcela Hanna NRCMA - 08/23/2024 4:00 PM EDT Printed for review with provider. CHRISTIAN Curry * Telephone Encounter - Jamie Moraes OSA - 08/23/2024 3:57 PM EDT Dai Boswell placed a referral for this patient, I believe she needs to be sooner. Appts on my end start on 10/22. Please let me know if you should need anything from me, thank you. * Addendum Note - Dai Scott PA-C - 08/23/2024 3:46 PM EDTAddended by: DAI SCOTT on: 08/23/2024 03:46 PM Modules accepted: Orders * Telephone Encounter - Dai Scott PA-C - 08/23/2024 3:46 PM EDT Order placed Please help schedule * Addendum Note - Matt Hayes LPN - 08/23/2024 3:22 PM EDTAddended by: MATT HAYES on: 08/23/2024 03:22 PM Modules accepted: Orders * Telephone Encounter - Matt Hayes LPN - 08/23/2024 3:21 PM EDT Patient agreeable. Please place EP referral. * Telephone Encounter - Dai Scott PA-C - 08/23/2024 1:04 PM EDT Ok to take an additional metoprolol as needed for afib. Recommend EP referral to discuss antiarrhythmic vs possible ablation given symptomatic afib episodes * Telephone Encounter - Matt Hayes LPN - 08/20/2024 1:27 PM EDT Sent patient a MyChart to ask how she is feeling. * Telephone Encounter - Dai Scott PA-C - 08/20/2024 1:05 PM EDT Device interrogation shows a recurrent episode of afib yesterday. Patient on appropriate therapies with Eliquis 5 mg BID and metoprolol See how she is feeling? Priya - is she still in it today? How fast are her HR's? * Telephone Encounter - Priya Mena LPN - 08/19/2024 9:31 AM EDT Normal Remote: With Events Normal Device Function Events or Alerts: 8 Battery: 3.01V, 9.75 yrs Sensing, impedance and thresholds reviewed Programmed parameters reviewed Presenting rhythm AFVS with intermittent RVR Heart Rate Histograms reviewed Tachycardia: AF Stored EGMs are consistent with or suggestive of Atrial Fibrillation AT/AF [place]: 1.5% Total number of events: 8 Ongoing episode from 08/19/2024 at 0250 Additional Notes: Eliquis Appropriate AT/AF Therapy: Unsuccessful Stored EGMs are consistent with or suggestive of AT/AF with unsuccessful therapy Total episodes: 8 AT [place]: 1.5% Number of ATP therapy: 2 documented in this encounter Plan of Treatment Upcoming Encounters Date Type Department Care Team (Late st Contact Info) Description 09/06/2024 4:20 PM EST [facility] [address] [place] [address] Tessa Duque DO [address] [place] [address] 09/21/2024 8:00 AM EST Office Visit [facility] [address] [place] [address] Dylan Barros MD [address] [place] [address] 12/14/2024 9:30 AM EST Office Visit Cardiology, [facility] [address] [facility] [place] [address] Dai Scott PA-C [address] [place] [address] 04/01/2025 11:20 AM EDT Office Visit Sleep Disorders [facility] [address] [place] [address] Riddhi Cook, DO [address] [place] [address] Scheduled Procedures Name Priority Associated Diagnoses Date/Ti me COLONOSCOPY FLEXIBLE PROXIMA L DIAGNOSTIC Recall History of colonic polyps Scheduled Referrals Name Type Priority Associated Diagnoses Order Schedule ELECTROPHYSIOLOGY REFERRAL OP Referral Within 30 days (routine) PAF (paroxysmal atrial fibrillation) (HCC) SSS (sick sinus syndrome) (HCC) LBBB (left bundle branch block) Cardiac pacemaker in situ Ordered: 08/23/2024 Health Maintenance Due Date Last Done Comments Cologuard 1995 Sigmoidoscopy 1995 Fecal Occult Blood Test 07/07/2001 07/07/2000 Adult Wellness Visit 2016 Pneumococcal Vaccine: 65+ Years (3 of 3 - PPSV23 or PCV20) 08/22/2019 12/13/2015, 08/22/2014 Diabetic Foot Exam 06/28/2023 06/28/2022 COVID-19 Vaccine ( season) 2024 08/01/2022, 08/18/2021, 12/24/2020, Additional history exists Influenza Vaccine (FLU shot) (#1) 2024 07/04/2023, 06/28/2022, 07/09/2021, Additional history exists Albumin/Creatinine Ratio 07/08/2024 07/08/2023, 08/0 06/2022 HbA1c 09/01/2024 03/01/2024, 06/27, 11/26/2022, Additional history exists Diabetic Eye Exam 09/15/2024 09/15/2023, 08/29/2022 TSH 01/05/2025 01/06/2024, 06/27, 12/27/2022, Additional history exists Mammogram 01/19/2025 01/20/2024, 12/26, 07/15/2001 GFR 03/19/2025 03/19/2024, 02/24, 03/01/2024, Additional history exists DXA Scan 04/30/2025 04/30/2018 Depression Monitoring 06/14/2025 06/14/2024 DTap/Tdap Vaccines (3 - Td or Tdap) 07/18/2025 07/18/2015, 06/06/2005 Colonoscopy 01/14/2027 01/15/2024, 12/26, 02/26/2021 Colorectal Cancer Screening 01/14/2027 Zoster Vaccines Completed 07/16/2023, 03/0 12/2022, 06/14/2015 HPV (Gardasil) Vaccine Aged Out No lo nger eligible based on patient's age to complete this topic Hepatitis B Vaccine Aged Out No longe r eligible based on patient's age to complete this topic MENINGOCOCCAL (MENACTRA/MENVEO) Aged Out No longer eligible based on patient's age to complete this topic documented as of this encounter Medical Devices Implanted Type Area Casework Supervisor Device Identifier Shelf Expiration Date Model / Serial / Lot Lead Pace Selectsecure 3830-69 - [id number] Implanted:Qty: 1 on 11/18/2022 by Nora Antonio DO at OR [facility] Lead Left: Heart [employer] : CRM 10/18/2024 [id number] / / Description:RV LBBB Lead Novus Bipolar 52cm - [id number] - [id number] Implanted:Qty: 1 on 11/18/2022 by Nora Antonio DO at OR [facility] Lead Left: Heart [employer] : CRM 09/23/2024 5076-52 / [id number] / Description:RA Pacemaker Dana Xt Dr Banks Wrls - [id number] - [id number] Implanted:Qty: 1 on 11/18/2022 by Nora Antonio DO at OR [facility] Pacemaker Left: Chest [employer] 04/09/2024 [id number] / [id number] / Lens Intraoc 26.5 - [id number] - [id number] Implanted:Qty: 1 on 02/23/2019 by Jonas Valentino MD at OR [facility] Right: Eye [employer] LOMB 05/26/2023 [id number] / [id number] / [id number] Lens Intraoc 24.5 - [id number] - [id number] Implanted:Qty: 1 on 03/02/2019 by Jonas Valentino MD at OR [facility] Left: Eye BAUSCH [employer] LOMB 08/26/2023 [id number] / [id number] / [id number] Envelope Antibacterial Tyrx - [id number] Implanted:Qty: 1 on 11/18/2022 by Nora Antonio DO at OR [facility] [employer] : CRM [id number] 08/09/2023 CMR [id number] / / [id number] documented as of this encounter Visit Diagnoses Diagnosis PAF (paroxysmal atrial fibrillation) ([facility])- Primary Atrial fibrillation SSS (sick sinus syndrome) ([facility]) Sinoatrial node dysfunction LBBB (left bundle branch block) Other left bundle branch block Cardiac pacemaker in situ documented in this encounter Advance Directives * Full Code (Latest Code Status on File) Date Activated Date Inactivated Comments 04/05/2021 7:37 AM 04/05/2021 4:11 PM This order r eflects the patients wishes and were consensually agreed upon. Question Answer Comments Discussion of Advance Directives occurred with: Not Discussed Care Teams Small Arms Repairer Relationship Specialty Start Date End Date Dylan Barros MD [address] [place] [address] PCP - General Family Medicine 11/07/23 documented as of this encounter
--- OUTSIDE RECORDS SUMMARY | 2024-09-24 19:26 | External Medical Summary | Summary of Care ---
Author Name Unknown Organization [facility] Address [address] [place] [address] Phone [phone] Care Team Providers Care Mine Patrol Name Role Phone Dylan Barros MD Primary Care Provider [phone]- [phone] Reason for Referral * Evaluate & Treat - Unlimited Visits (Within 30 days (routine)) - Authorized Specialty Diagnoses / Procedures Referred By Contact Referred To Contact Cardiac Electrophysiology / Cardiology Diagnoses PAF (paroxysmal atrial fibrillation) (HCC) SSS (sick sinus syndrome) (HCC) LBBB (left bundle branch block) Cardiac pacemaker in situ Nora Antonio DO [address] [place] [address] [place] [facility] [address] [place] [address] Referral ID Status Reason Start Date Expiration Date Visits Requested Visits Authorized [id number] Authorized Specialty Services Required 4 [phone] Question Answer Referral Priority Within 30 days (routine) Where should this appointment be scheduled? [facility] Comments Recurrent PAF; symptomatic. Has pacemaker - consider antiarrhythmic vs possible ablation Reason for Visit * Reason Onset Date Comments Pacemaker Clinic 08/19/2024 Remote transmis jamie Encounter Details Date Type Department Care Team (Late st Contact Info) Description 08/19/2024 Telephone [address]iology, [facility] [address] [facility] [place] [address] [place], Pacer Clinic [facility] [address] [place] [address] Pacemaker Clinic (Remote transmission ) Allergies Active [...] encounter Miscellaneous Notes * Telephone Encounter - Jamie Moraes OSA - 08/23/2024 4:08 PM EDT Thank you Dai, Patient has been called, and is setup for: EP CARDIO at 8:45 AM (60 min)Arrive by 8:30 AM Tuesday October 22, 2024 * Telephone Encounter - Dai Scott PA-C - 08/23/2024 4:03 PM EDT I do not think referral is urgent. * Telephone Encounter - Marcela Hanna NRCMA [...] with or suggestive of Atrial Fibrillation AT/AF [place]: 1.5% Total number of events: 8 Ongoing episode from 08/19/2024 at 0250 Additional Notes: Eliquis Appropriate AT/AF Therapy: Unsuccessful Stored EGMs are consistent with or suggestive of AT/AF with unsuccessful therapy Total episodes: 8 AT [place]: 1.5% Number of ATP therapy: 2 documented in this encounter Plan of Treatment Upcoming Encounters Date Type Department Care Team (Late st Contact Info) Description 09/06/2024 4:20 PM EST Telemedicine Rheumatology, [place] [address] [place] [address] Tessa Duque DO [address] [place] [address] 09/21/2024 8:00 AM EST Office Visit [address] [phone] Dylan Barros MD [address] [place] [address] 10/22/2024 8:45 AM EST Office Visit Cardiology, [facility] [address] [place] [address] Nora Antonio, [address] [facility] [place] [address] 12/14/2024 9:30 AM EST Office Visit Cardiology, [facility] [address] [facility], [place] [address] Dai Scott PA-C [address] [place] [address] 04/01/2025 11:20 AM EDT Office Visit Sleep Disorders [facility] [address] [place] [id number] Riddhi Cook, [facility] [address] Scheduled Procedures Name Priority Associated Diagnoses Date/Ti [...] Additional history exists Albumin/Creatinine Ratio 07/08/2024 07/08/2023, 06/2022 HbA1c 09/01/2024 03/01/2024, 06/27, 11/26/2022, Additional [...] Cancer Screening 01/14/2027 Zoster Vaccines Completed 07/16/2023, 0 12/2022, 06/14/2015 HPV (Gardasil) Vaccine Aged Out No lo nger eligible based on patient's age to complete this topic Hepatitis B Vaccine Aged Out No longe r eligible based on patient's age to complete this topic MENINGOCOCCAL (MENACTRA/MENVEO) Aged Out No longer eligible based on patient's age to complete this topic documented as of this encounter Medical Devices Implanted Type Area Yellow Pages Space Salesperson Device Identifier Shelf Expiration Date Model / Serial / Lot Lead Pace Selectsecure 3830-69 - [id number] Implanted:Qty: 1 on 11/18/2022 by Nora Antonio DO at OR [facility] Lead Left: Heart [employer] : CRM 10/18/2024 [id number] / / Description:RV LBBB Lead Novus Bipolar 52cm - [id number] - [id number] Implanted:Qty: 1 on 11/18/2022 by Nora Antonio DO at OR [facility] Lead Left: Heart [employer] : [facility] 09/23/2024 5076-52 / [id number] / Description:RA Pacemaker Dana Xt Dr Banks [facility] - [id number] - [id number] Implanted:Qty: 1 on 11/18/2022 by Nora Antonio DO at OR [facility] Pacemaker Left: Chest [employer] 04/09/2024 [id number] / [id number] / Lens Intraoc 26.5 - [id number] - [id number] Implanted:Qty: 1 on 02/23/2019 by Jonas Valentino MD at OR [facility] Right: Eye BAUSCH [employer] LOMB 05/26/2023 [id number] / [id number] / [id number] Lens Intraoc 24.5 - [id number] - [id number] Implanted:Qty: 1 on 03/02/2019 by Jonas Valentino MD at OR [facility] Left: Eye BAUSCH [employer] LOMB 08/26/2023 [id number] / [id number] / [id number] Envelope Antibacterial Tyrx - [id number] Implanted:Qty: 1 on 11/18/2022 by Nora Antonio DO at OR [facility] [employer] : [facility] [id number] 08/09/2023 [facility] [id number] / / [id number] documented as of this encounter Visit Diagnoses Diagnosis PAF (paroxysmal atrial fibrillation) ([facility])- Primary Atrial fibrillation SSS (sick sinus syndrome) ([facility]) Sinoatrial node dysfunction LBBB (left bundle branch [...] Directives occurred with: Not Discussed Care Teams Mine Patrol Relationship Specialty Start Date End Date Dylan Barros MD [address] [place] [address] PCP - General Family Medicine 11/07/23 documented as of this encounter
--- OUTSIDE RECORDS SUMMARY | 2024-09-24 19:26 | External Medical Summary | Summary of Care ---
Author Name Unknown Organization [facility] Address [address] [place] [address] Phone [phone] Care Team Providers Care Observer Electrical Prospecting Name Role Phone Dylan Barros MD Primary Care Provider [phone]- [phone] Reason for Referral * Evaluate & Treat - Unlimited Visits (Within 30 days (routine)) - Authorized Specialty Diagnoses / Procedures Referred By Contact Referred To Contact Cardiac Electrophysiology / Cardiology Diagnoses PAF (paroxysmal atrial fibrillation) (HCC) SSS (sick sinus syndrome) (HCC) LBBB (left bundle branch block) Cardiac pacemaker in situ Nora Antonio DO [address] [place] [address] [facility] [address] [place] [address] Referral ID Status Reason Start Date Expiration Date Visits Requested Visits Authorized [id number] Authorized Specialty Services Required 4 [phone] Question Answer Referral Priority Within 30 days (routine) Where should this appointment be scheduled? [place] Comments Recurrent PAF; symptomatic. Has pacemaker - consider antiarrhythmic vs possible ablation Reason for Visit * Reason Onset Date Comments Pacemaker Clinic 08/19/2024 Remote transmis jamie Encounter Details Date Type Department Care Team (Late st Contact Info) Description 08/19/2024 Telephone Cardiology, [facility] [address] [facility] [place] [address] [place], [facility] [address] [place] [address] Pacemaker Clinic (Remote transmission ) Allergies Active [...] with or suggestive of Atrial Fibrillation AT/AF [place]: 1.5% Total number of events: 8 Ongoing episode from 08/19/2024 at 0250 Additional Notes: Eliquis Appropriate AT/AF Therapy: Unsuccessful Stored EGMs are consistent with or suggestive of AT/AF with unsuccessful therapy Total episodes: 8 AT [place]: 1.5% Number of ATP therapy: 2 documented in this encounter Plan of Treatment Upcoming Encounters Date Type Department Care Team (Late st Contact Info) Description 09/06/2024 4:20 PM EST Telemedicine Rheumatology, [place] [address] [place] [address] Tessa Duque, [address] [place] [address] 09/21/2024 8:00 AM EST Office Visit [facility] [address] [place] [phone] Dylan Barros MD [address] [place] [address] 12/14/2024 9:30 AM EST Office Visit Cardiology, [facility] 132 [facility] [place] [address] Dai Scott PA-C [address] [place] [address] 04/01/2025 11:20 AM EDT Office Visit [facility] [address] [place] [phone] Riddhi Cook, [address] [place] [address] Scheduled Procedures Name Priority Associated Diagnoses Date/Ti [...] Cancer Screening 01/14/2027 Zoster Vaccines Completed 07/16/2023, 12/2022, 06/14/2015 HPV (Gardasil) Vaccine Aged Out No lo nger eligible based on patient's age to complete this topic Hepatitis B Vaccine Aged Out No longe r eligible based on patient's age to complete this topic MENINGOCOCCAL (MENACTRA/MENVEO) Aged Out No longer eligible based on patient's age to complete this topic documented as of this encounter Medical Devices Implanted Type Area Drum Operator Device Identifier Shelf Expiration Date Model / Serial / Lot Lead Pace Selectsecure 3830-69 - [id number] Implanted:Qty: 1 on 11/18/2022 by Nora Antonio DO at OR [facility] Lead Left: Heart [employer] : CRM 10/18/2024 [id number] / / Description:RV LBBB Lead Novus Bipolar 52cm - [id number] - [id number] Implanted:Qty: 1 on 11/18/2022 by Nora Antonio DO at OR [facility] Lead Left: Heart [employer] : CRM 09/23/2024 5076-52 / [id number] / Description:RA Pacemaker Dana Xt Dr Banks Wrls - [id number] - [id number] Implanted:Qty: 1 on 11/18/2022 by Nora Antonio DO at OR [facility] Pacemaker Left: Chest [employer] 04/09/2024 [id number] / [id number] / Lens Intraoc 26.5 - [id number] - [id number] Implanted:Qty: 1 on 02/23/2019 by Jonas Valentino MD at OR [facility] Right: Eye BAUSCH & LOMB 05/26/2023 [id number] / [id number] / [id number] Lens Intraoc 24.5 - [id number] - [id number] Implanted:Qty: 1 on 03/02/2019 by Jonas Valentino MD at OR [facility] Left: Eye BAUSCH & LOMB 08/26/2023 [id number] / [id number] / [id number] Envelope Antibacterial Tyrx - [id number] Implanted:Qty: 1 on 11/18/2022 by Nora Antonio DO at OR [facility] [employer] : CRM [id number] 08/09/2023 CMR [id number] / / [id number] documented as of this encounter Visit Diagnoses Diagnosis PAF (paroxysmal atrial fibrillation) ([facility])- Primary Atrial fibrillation SSS (sick sinus syndrome) ([facility]) Sinoatrial node dysfunction LBBB (left [...] Directives occurred with: Not Discussed Care Teams Observer Electrical Prospecting Relationship Specialty Start Date End Date Dylan Barros MD [address] [place] [address] PCP - General Family Medicine 11/07/23 documented as of this encounter
--- OUTSIDE RECORDS SUMMARY | 2024-09-24 19:26 | External Medical Summary | Summary of Care ---
Author Name Unknown Organization [facility] Address [address] [place] [address] Phone [phone] Care Team Providers Care Java Swing Developer Name Role Phone Dylan Barros MD Primary Care Provider +1- [phone] Reason for Visit * Reason Onset Date Comments Pacemaker Clinic 08/19/2024 Remote transmis jamie Encounter Details Date Type Department Care Team (Late st Contact Info) Description 08/19/2024 Telephone Cardiology, [facility] 132 [facility] [address] [place], Pacer Clinic [facility] 132 [facility] [place] [address] Pacemaker Clinic (Remote transmission ) Allergies Active [...] before bedtime. 180 Tablet 3 03/10/2024 Active [employer]foundry w/Device Kit Use up to 4 times [...] hemoglobin A1c goal of less than 7.0% ([facility]) Take 1 Tablet by mouth daily. 90 Tablet 3 07/10/2024 Active OneTouch Ultra Test In Vitro Strip (Glucose Blood)Indications: Type 2 diabetes mellitus with hemoglobin A1c goal of less than 7.0% ([facility]) Use to check blood sugars once per [...] AHI was 17.1 DME: [facility], [place] Titration study 04/27/12 set pressure of 8 [...] 30 Mcg, IM, 12 yrs and above ([employer]) 08/01/2022 DT - Diptheria/Tetanus (PEDS) 06/06/2005 Pneumococcal [...] encounter Miscellaneous Notes * Telephone Encounter - Nicole Severino PA-C - 08/23/2024 1:04 PM EDT Ok to take an additional metoprolol as needed for afib. Recommend EP referral to discuss antiarrhythmic vs possible ablation given symptomatic afib episodes * Telephone Encounter - Matt Hayes LPN - 08/20/2024 1:27 PM EDT Sent patient a MyChart to ask how she is feeling. * Telephone Encounter - Nicole Severino PA-C - 08/20/2024 1:05 PM EDT Device [...] with or suggestive of Atrial Fibrillation AT/AF [place]: 1.5% Total number of events: 8 Ongoing episode from 08/19/2024 at 0250 Additional Notes: Eliquis Appropriate AT/AF Therapy: Unsuccessful Stored EGMs are consistent with or suggestive of AT/AF with unsuccessful therapy Total episodes: 8 AT [place]: 1.5% Number of ATP therapy: 2 documented in this encounter Plan of Treatment Upcoming Encounters Date Type Department Care Team (Late st Contact Info) Description 09/06/2024 4:20 PM [facility] Rheumatology[address] [address] Dunia Tessa, DO [address] [place] [address] 09/21/2024 8:00 AM EST Office [facility] [address] [place] [phone] Dylan Barros MD [address] [place] [address] 12/14/2024 9:30 AM EST Office Visit Cardiology, [facility] [address] [facility] [place] [address] Nicole Severino PA-C [address] [place] [address] 04/01/2025 11:20 AM EDT Office Visit [facility] [address] [place] [address] Riddhi Cook, DO [address] [place] [address] Scheduled Procedures Name Priority Associated Diagnoses Date/Ti [...] this encounter Medical Devices Implanted Type Area Asphalt Heater Tender Device Identifier Shelf Expiration Date Model / Serial / Lot Lead Pace Selectsecure 3830-69 - [id number] Implanted:Qty: 1 on 11/18/2022 by Nora Antonio DO at OR [facility] Lead Left: Heart [employer] : CAR 10/18/2024 [id number] / / Description:RV LBBB Lead Novus Bipolar 52cm - [id number] - [id number] Implanted:Qty: 1 on 11/18/2022 by Nora Antonio DO at OR [facility] Lead Left: Heart [employer] : CRM 09/23/2024 5076-52 / [id number] / Description:RA Pacemaker Dana Xt Dr Jocelyn Wrls - [id number] - [id number] Implanted:Qty: 1 on 11/18/2022 by Nora Antonio DO at OR [facility] Pacemaker Left: Chest [employer] 04/09/2024 [id number] / [id number] / Lens Intraoc 26.5 - [id number] - [id number] Implanted:Qty: 1 on 02/23/2019 by Jonas Valentino MD at OR [facility] Right: Eye BAUSCH & LOMB 05/26/2023 [id number] / [id number] / [id number] Lens Intraoc 24.5 - [id number] - [id number] Implanted:Qty: 1 on 03/02/2019 by Jonas Valentino MD at OR [facility] Left: Eye BAUSCH & LOMB 08/26/2023 [id number] / [id number] / [id number] Envelope Antibacterial Tyrx - [id number] Implanted:Qty: 1 on 11/18/2022 by Nora Antonio DO at OR [facility] [employer] : CRM [id number] 08/09/2023 [facility] M6122 / / [id number] documented as of this encounter Advance Directives * Full Code (Latest Code Status on File) Date Activated Date Inactivated Comments 04/05/2021 7:37 AM 04/05/2021 4:11 PM This order r eflects the patients wishes and were consensually agreed upon. Question Answer Comments Discussion of Advance Directives occurred with: Not Discussed Care Teams Java Swing Developer Relationship Specialty Start Date End Date Dylan Barros MD [address] [facility] [place] [phone] PCP - General Family Medicine 11/07/23 documented as of this encounter
--- OUTSIDE RECORDS SUMMARY | 2024-09-24 19:26 | External Medical Summary | Summary of Care ---
Author Name Unknown Organization [facility] Address [address] [place] [address] Phone [phone] Care Team Providers Care Can Closing Machine Operator Name Role Phone Dylan Barros MD Primary Care Provider +1- [phone] Reason for Visit * Reason Comments Rheum Follow Up * Evaluate & Treat - Unlimited Visits (Within 30 days (routine)) - Authorized Specialty Diagnoses / Procedures Referred By Raiza t Referred To Contact Rheumatology Diagnoses PMR (polymyalgia rheumatica) (HCC) Dylan Barros MD [address] [place] [address] Phone: tel: fax: Referral ID Status Reason Start Date Expiration Date Visits Requested Visits Authorized [id number] Authorized Specialty Services Required 01/28/2024 08/04/[id number] Encounter Details Date Type Department Care Team (Late st Contact Info) Description 09/06/2024 4:20 PM EST Telemedicine Rheumatology, [place] [address] [place] [address] Tessa Duque DO [address] [place] [address] PMR (polymyalgia rheumatica) ([facility])*; High risk medication use Allergies Active Allergy Reactions Criticality Noted Date Comments Albuterol High 04/04/2022 Other reaction(s): racing heart Citalopram 04/04/2022 Other reaction(s): Unknown Sulfa Antibiotics Hives Medium 07/07/2000 documented as of this encounter (statuses as of 09/06/2024) Medications MULTIVITAMINS PO TABS 1 tablet daily Activ e ASPIRIN 81 MG PO TABS Take by mouth at bedtime. Active NITROGLYCERIN 0.[address] under the tongue. 25 Tab 11 10/04/20 11 Active VITAMIN D3 1000 UNITS PO TABS 2 TABLETS DAILY 02/08/20 14 Active LORazepam (ATIVAN) 1 MG Tablet One tablet every 8 hours as needed 11/15/19 16 Active CPAP every night at bedtime. Active Docusate Sodium 100 MG Oral Capsule Take 1 Capsule by mouth every evening. Active Sertraline HCl 100 MG Oral Tablet (Zoloft)Indicati ons:Recurrent major depressive disorder, in partial remission (HCC) TAKE 1 & 1/2 TABLETS BY MOUTH DAILY IN THE MORNING 135 Tablet 3 03/01/20 24 Active Empagliflozin 10 MG Oral Tablet (Jardiance) Take 1 Tablet by mouth in the morning. 90 Tablet 3 03/02/20 24 Active Potassium Chloride Tish ER 20 MEQ Oral Tablet Extended ReleaseIndicatio ns:HTN, goal below 130/80,Paroxysma l atrial fibrillation (HCC) Take 1 Tablet by mouth in the morning and 1 Tablet before bedtime. 180 Tablet 3 03/10/20 24 Active OneTouch Verio w/Device Kit Use up to 4 times a day E11.9 1 Kit 03/23/20 24 Active predniSONE 10 MG Oral Tablet (Deltasone)Indic ations:PMR (polymyalgia rheumatica) (HCC) Take 1 Tablet by mouth in the morning. 90 Tablet 04/09/20 24 Active predniSONE 2.5 MG Oral Tablet (Deltasone)Indic ations:PMR (polymyalgia rheumatica) (HCC) Take 1 Tablet by mouth in the morning. 90 Tablet 04/09/20 24 Active Additional Information Patient not taking.Reported on 06/14/2024 Metoprolol Succinate ER 50 MG Oral Tablet Extended Release 24 Hour (toPROL XL) Take 1 Tablet by mouth every evening. 90 Tablet 3 04/27/20 24 Active Atorvastatin Calcium 20 MG Oral Tablet (Lipitor)Indicat ions:Dyslipidemi a, goal LDL below 70 Take 1 Tablet by mouth in the morning. 90 Tablet 3 05/10/20 24 Active Eliquis 5 MG Oral Tablet (Apixaban)Indica tions:Paroxysmal atrial fibrillation (HCC) TAKE 1 TABLET BY MOUTH EVERY MORNING AND 1 TABLET BEFORE BEDTIME 180 Tablet 3 05/31/20 24 Active traZODone HCl 50 MG Oral Tablet (Desyrel)Indicat ions:Insomnia, unspecified type Take 0.5 Tablets by mouth at bedtime. 90 Tablet 1 06/14/20 24 Active Metoprolol Succinate ER 25 MG Oral Tablet Extended Release 24 Hour (toPROL XL)Indications:P aroxysmal atrial fibrillation (HCC) Take 1 Tablet by mouth in the morning. This is in addition to the 50 mg tablet daily. 90 Tablet 3 06/15/20 24 Active Levothyroxine Sodium 50 MCG Oral Tablet (Levoxyl)Indicat ions:Hypothyroid ism, unspecified type TAKE 1&1/2 TABLETS BY MOUTH DAILY ALTERNATING WITH 1 TABLET DAILY (at least 30 min prior to breakfast or other meds) 135 Tablet 3 06/16/20 24 Active metFORMIN HCl ER 500 MG Oral Tablet Extended Release 24 Hour (Glucophage XR)Indications:T ype 2 diabetes mellitus with hemoglobin A1c goal of less than 7.0% ([facility]) Take 1 Tablet by mouth daily. 90 Tablet 3 07/10/20 24 Active OneTouch Ultra Test In Vitro Strip (Glucose Blood)Indication s:Type 2 diabetes mellitus with hemoglobin A1c goal of less than 7.0% ([facility]) Use to check blood sugars once per day Dx E11.9 100 Strip 5 07/13/20 24 Active hydroCHLOROthiaz giuliano 25 MG Oral Tablet (Hydrodiuril)Ind ications:Chronic coronary artery disease,HTN, goal below 130/80 TAKE 1 TABLET BY MOUTH EVERY MORNING 90 Tablet 08/02/20 24 Active predniSONE 5 MG Oral Tablet (Deltasone)Indic ations:PMR (polymyalgia rheumatica) ([facility]) Take 1 Tablet by mouth in the morning. 90 Tablet 09/06/20 24 Active predniSONE 5 MG Oral Tablet (Deltasone)Indic ations:PMR (polymyalgia rheumatica) ([facility]) Take 1 Tablet by mouth in the morning. 90 Tablet 04/09/20 24 024 Discontin ued(Refil l) documented as of this encounter (statuses as of 09/06/2024) Active Problems Problem Noted Date Diagnosed Date [...] AHI was 17.1 DME: [facility], [place] Titration study 04/27/12 set pressure of 8 cm HTN, goal below 130/80 01/09/2011 Chronic coronary artery disease 09/15/2010 Overview (09/15/2010): Cath 2006 - 30% mid LAD stenosis Dyslipidemia, goal LDL below 70 09/15/2010 documented as of this encounter (statuses as of 09/06/2024) Resolved Problems Problem Noted Date Diagnosed Date Resolved Date Obstructive sleep apnea 11/28/201101/26 Overview (11/28/2011): AHI 8..2 in April 2008 documented as of this encounter (statuses as of 09/06/2024) Immunizations Name Administration Dates Next Due COVID-19 [...] PM EDT documented as of this encounter Progress Notes * Tessa Duque, - 09/06/2024 4:24 PM EST Patient location: HOME. I was not in a hospital or clinic location. After connecting through televideo, patient was verified with two unique identifiers. Patient (or authorized legal used equipment sales representative) was then informed that this was a Telemedicine visit and being conducted confidentially over secure lines. Methods to assure confidentiality were taken. Patient acknowledged consent and understanding of privacy and security of the Telemedicine visit. The patient agreed to participate. Patient is seen as a new consult at the request of Dylan Barros MD HPI: This is a 74 year old female who is here for follow up. Pt states that she had to go back up to 10 mg daily in June. She states that un Jul she went down 9 mg. Patient states that she is on 8 mg daily. ROS: + as above with the addition [...] No rashes. Patient Active Problem List Diagnosis Chronic coronary artery disease Dyslipidemia, goal LDL below 70 HTN, goal below 130/80 INEZ on CPAP Hypothyroidism LBBB (left bundle branch block) Paroxysmal atrial fibrillation ([facility]) Type 2 diabetes mellitus with hemoglobin A1c goal of less than 7.0% ([facility]) Microcytic anemia Bradycardia, sinus Multiple lung nodules JEFF (generalized anxiety disorder) Panic disorder without agoraphobia SSS (sick sinus syndrome) ([facility]) Recurrent major depressive disorder, in partial remission ([facility]) Cardiac pacemaker in situ PMR (polymyalgia rheumatica) ([facility]) Current Outpatient Medications Medication Sig Dispense Refill [...] times a day E11.9 1 Kit 0 predniSONE 10 MG Oral Tablet (Deltasone) Take 1 Tablet by mouth in the morning. 90 Tablet 0 predniSONE 5 MG Oral Tablet (Deltasone) Take 1 Tablet by mouth in the morning. (Patient not taking:Reported on 06/14/2024) 90 Tablet 0 predniSONE 2.5 MG Oral Tablet (Deltasone) Take 1 Tablet by mouth in the morning. (Patient not taking: Reported on 06/14/2024) 90 Tablet 0 Metoprolol Succinate ER 50 MG Oral [...] 1 Tablet by mouthdaily. 90 Tablet 3 TaquillaTouch Ultra Test In Vitro Strip (Glucose Blood) Use to check blood sugars once per day Dx E11.9 100 Strip 5 hydroCHLOROthiazide 25 MG Oral Tablet (Hydrodiuril) TAKE 1 TABLET BY MOUTH EVERY MORNING 90 Tablet 0 No current facility-administered medications for this visit. Social History Tobacco Use Smoking status: Never Passive exposure: Never Smokeless tobacco: Never Vaping Use Vaping status: Never Used Substance Use Topics Alcohol use: Not Currently Drug use: No Family History Problem Relation Name Age of Onset Heart Disorder Father at 61 of [place] Stroke Mother at 78 of CVA No [...] normal Impressions and Plans: This is a 74 year old female with likely PMR who is doing well on prednisone taper which we will continue. -8 mg daily x 4 weeks and then down by 1 mg every 4 weeks --esr / crp check before next visit Thank you for involving me in this patient's care. Tessa Duque DO Department of Rheumatology [facility] documented in this encounter Plan of Treatment Upcoming Encounters Date Type Department Care Team (Late st Contact Info) Description 09/21/2024 8:00 AM EST [facility] [address] [facility] [address] [facility]ros [facility] [address] [facility] [address] 10/22/2024 8:45 AM EST Office Visit Cardiology, [facility] [address] [facility] [place] [address] Nora Antonio DO [address] [facility] [place] [address] 12/14/2024 9:30 AM EST Office Visit Cardiology, [facility] [address] [facility] [place] [address] Nicole Severino, [place] 132 [facility] [place] [address] 04/01/2025 11:20 AM EDT Office Visit [facility] [address] [place] [address] Riddhi Cook, [address] [place] [address] Scheduled Orders Name Type Priority Associated Diagnoses Orde r Schedule ERYTHROCYTE SEDIMENTATION RATE (ESR) Lab Routine High risk medication use Expected: 09/06/2024, Expires: 09/06/2025 CRP (INFLAMMATORY MARKER) Lab Routine High risk medication use Expected: 09/06/2024, Expires: 09/06/2025 Scheduled Procedures Name Priority Associated Diagnoses Date/Ti [...] Cancer Screening 01/14/2027 Zoster Vaccines Completed 07/16/2023, 0312/2022, 06/14/2015 HPV (Gardasil) Vaccine Aged Out No lo nger eligible based on patient's age to complete this topic Hepatitis B Vaccine Aged Out No longe r eligible based on patient's age to complete this topic MENINGOCOCCAL (MENACTRA/MENVEO) Aged Out No longer eligible based on patient's age to complete this topic documented as of this encounter Medical Devices Implanted Type Area Lead Consultant Device Identifier Shelf Expiration Date Model / Serial / Lot Lead Pace Selectsecure 3830-69 - [id number] Implanted:Qty: 1 on 11/18/2022 by Nora Antonio DO at OR [facility] Lead Left: Heart [employer] : [facility] 10/18/2024 [id number] / / Description:RV LBBB Lead Novus Bipolar 52cm - [id number] - [id number] Implanted:Qty: 1 on 11/18/2022 by Nora Antonio DO at OR [facility] Lead Left: Heart [employer] : CRM 09/23/2024 5076-52 / [id number] / Description:RA Pacemaker Dana Xt Dr Banks Wrls - [id number] - [id number] Implanted:Qty: 1 on 11/18/2022 by Nora Antonio DO at OR [facility] Pacemaker Left: Chest [employer] 04/09/2024 W1DR01 / [id number] / Lens Intraoc 26.5 - [id number] - [id number] Implanted:Qty: 1 on 02/23/2019 by Jonas Valentino MD at OR [facility] Right: Eye BAUSCH & LOMB 05/26/2023 [id number] / [id number] / [id number] Lens Intraoc 24.5 - [id number] - [id number] Implanted:Qty: 1 on 03/02/2019 by Jonas Valentino MD at OR [facility] Left: Eye BAUSCH & LOMB 08/26/2023 [id number] / [id number] / [id number] Envelope Antibacterial Tyrx - [id number] Implanted:Qty: 1 on 11/18/2022 by Nora Antonio DO at OR [facility] [employer] : CRM [id number] 08/09/2023 CMR M6122 / / [id number] documented as of this encounter Visit Diagnoses [...] Directives occurred with: Not Discussed Care Teams Can Closing Machine Operator Relationship Specialty Start Date End Date Dylan Barros MD [address] [place] [address] PCP - General Family Medicine 11/07/23 documented as of this encounter
--- OUTSIDE RECORDS SUMMARY | 2024-09-24 19:26 | External Medical Summary | Summary of Care ---
Author Name Unknown Organization [facility] Address [address] [place] [address] Phone [phone] Care Team Providers Care Frame Table Operator Name Role Phone Dylan Barros MD Primary Care Provider +1- [phone] Reason for Visit * Reason Comments Rheum Follow Up * Evaluate & Treat - Unlimited Visits (Within 30 days (routine)) - Authorized Specialty Diagnoses / Procedures Referred By Raiza t Referred To Contact Rheumatology Diagnoses PMR (polymyalgia rheumatica) (HCC) Dylan Barros MD [address] [place] [address] Phone: tel: fax: Referral ID Status Reason Start Date Expiration Date Visits Requested Visits Authorized [id number] Authorized Specialty Services Required 01/28/2024 08/04/[phone] Encounter Details Date Type Department Care Team (Late st Contact Info) Description 09/06/2024 4:20 PM EST Telemedicine Rheumatology, [place] [address] [place] [address] Tessa Stock DO [address] [place] [address] PMR (polymyalgia rheumatica) ([facility])*; High risk medication use Allergies Active Allergy Reactions Criticality Noted Date Comments Albuterol High 04/04/2022 Other reaction(s): racing heart Citalopram 04/04/2022 Other reaction(s): Unknown Sulfa Antibiotics Hives Medium 07/07/2000 documented as of this encounter (statuses as of 09/07/2024) Medications MULTIVITAMINS PO TABS 1 tablet daily [...] hemoglobin A1c goal of less than 7.0% ([facility]) Take 1 Tablet by mouth daily. 90 Tablet 3 07/10/20 24 Active OneTouch Ultra Test In Vitro Strip (Glucose Blood)Indication s:Type 2 diabetes mellitus with hemoglobin A1c goal of less than 7.0% ([facility]) Use to check blood sugars once per day Dx E11.9 100 Strip 5 07/13/20 24 Active hydroCHLOROthiaz giuliano 25 MG Oral Tablet (Hydrodiuril)Ind ications:Chronic coronary artery disease,HTN, goal below 130/80 TAKE 1 TABLET BY MOUTH EVERY MORNING 90 Tablet 08/02/20 24 Active predniSONE 5 MG Oral Tablet (Deltasone)Indic ations:PMR (polymyalgia rheumatica) ([facility]) Take 1 Tablet by mouth in the morning. 90 Tablet 09/06/20 24 Active predniSONE 5 MG Oral Tablet (Deltasone)Indic ations:PMR (polymyalgia rheumatica) ([facility]) Take 1 Tablet by mouth in the morning. 90 Tablet 04/09/20 24 024 Discontin ued(Refil l) documented as of this encounter (statuses as of 09/07/2024) Active Problems Problem Noted Date Diagnosed Date [...] AHI was 17.1 DME: [facility], [place] Titration study 04/27/12 set pressure of 8 cm HTN, goal below 130/80 01/09/2011 Chronic coronary artery disease 09/15/2010 Overview (09/15/2010): Cath 2006 - 30% mid LAD stenosis Dyslipidemia, goal LDL below 70 09/15/2010 documented as of this encounter (statuses as of 09/07/2024) Resolved Problems Problem Noted Date Diagnosed Date Resolved Date Obstructive sleep apnea 11/28/201101/26 Overview (11/28/2011): AHI 8..2 in April 2008 documented as of this encounter (statuses as of 09/07/2024) Immunizations Name Administration Dates Next Due COVID-19 [...] No 01/06/2024 Does the household have a [facility] source of income? (Household - for [...] Progress Notes * Brianna Palmer OSA - 09/07/2024 1:47 PM EST Left message to call and schedule a 3 mo return video appt with dr stock. On recall list. * Tessa Stock DO - 09/06/2024 4:24 PM EST Patient location: HOME. I was not in a hospital or clinic location. After connecting through televideo, patient was verified with two unique identifiers. Patient (or authorized legal software support representative) was then informed that this was [...] (left bundle branch block) Paroxysmal atrial fibrillation ([facility]) Type 2 diabetes mellitus with hemoglobin A1c goal of less than 7.0% ([facility]) Microcytic anemia Bradycardia, sinus Multiple lung nodules JEFF (generalized anxiety disorder) Panic disorder without agoraphobia SSS (sick sinus syndrome) ([facility]) Recurrent major depressive disorder, in partial remission ([facility]) Cardiac pacemaker in situ PMR (polymyalgia rheumatica) ([facility]) Current Outpatient Medications Medication Sig Dispense Refill [...] 1 Tablet before bedtime. 180 Tablet 3 [employer] w/Device Kit Use up to 4 times [...] Onset Heart Disorder Father at 61 of [place] Stroke Mother at 78 of CVA No [...] care. Tessa Stock DO Department of Rheumatology [facility] documented in this encounter Plan of Treatment Upcoming Encounters Date Type Department Care Team (Late st Contact Info) Description 09/21/2024 8:00 AM EST Office Visit [facility] [place] [address] [facility] [place] [address] Dylan Barros MD [address] [facility] [place] [address] 10/22/2024 8:45 AM EST Office Visit Cardiology, [facility] [address] [facility] [place] [address] Nora Antonio DO [address] [facility] [place] [address] 12/14/2024 9:30 AM EST Office Visit Cardiology, [facility] [address] [place] [address] Nicole Severino PA-C [address] [place] [address] 04/01/2025 11:20 AM EDT Office Visit Sleep Disorders Ctr [facility] [address] [place] [phone] Riddhi Cook, [address] [place] [address] Scheduled Orders Name Type Priority Associated Diagnoses [...] this encounter Medical Devices Implanted Type Area Optimization Consultant Device Identifier Shelf Expiration Date Model / Serial / Lot Lead Pace Selectsecure 3830-69 - [id number] Implanted:Qty: 1 on 11/18/2022 by Nora Antonio DO at OR [facility] Lead Left: Heart [employer] : CAR 10/18/2024 [id number] / / Description:RV LBBB Lead Novus Bipolar 52cm - [id number] - [id number] Implanted:Qty: 1 on 11/18/2022 by Nora Antonio DO at OR [facility] Lead Left: Heart [employer] : CRM 09/23/2024 5076-52 / [id number] / Description:RA Pacemaker Dana Xt Dr Banks Wrls - [id number] - [id number] Implanted:Qty: 1 on 11/18/2022 by Nora Antonio DO at OR [facility] Pacemaker Left: Chest [employer] 04/09/2024 [id number] / [id number] / Lens Intraoc 26.5 - [id number] - [id number] Implanted:Qty: 1 on 02/23/2019 by Jonas Valentino MD at OR [facility] Right: Eye BAUSCH & LOMB 05/26/2023 [id number] / [id number] / [id number] Lens Intraoc 24.5 - [id number] - [id number] Implanted:Qty: 1 on 03/02/2019 by Jonas Valentino MD at OR [facility] Left: Eye BAUSCH & LOMB 08/26/2023 [id number] / [id number] / [id number] Envelope Antibacterial Tyrx - [id number] Implanted:Qty: 1 on 11/18/2022 by Nora Antonio DO at OR [facility] [employer] : CRM [id number] 08/09/2023 [facility] [id number] / / [id number] documented as of this encounter Visit Diagnoses [...] Directives occurred with: Not Discussed Care Teams Frame Table Operator Relationship Specialty Start Date End Date Dylan Barros MD [address] [place] [address] PCP - General Family Medicine 11/07/23 documented as of this encounter
--- OUTSIDE RECORDS SUMMARY | 2024-09-24 19:26 | External Medical Summary | Summary of Care ---
Author Name Unknown Organization [facility] Address [address] [place] [address] Phone [phone] Care Team Providers Care Forensic Computer Examiner Name Role Phone Dylan Barros MD Primary Care Provider +1- [phone] Encounter Details Date Type Department Care Team (Late st Contact Info) Description 09/14/2024 Result Scan Unspecified Department Vitaly Webster MD [address] [place] [address] <No scans attached> Allergies Active Allergy Reactions Criticality Noted Date Comments Albuterol High 04/04/2022 Other reaction(s): racing heart Citalopram 04/04/2022 Other reaction(s): Unknown Sulfa Antibiotics Hives Medium 07/07/2000 documented as of this encounter (statuses as of 09/14/2024) Medications MULTIVITAMINS PO TABS 1 tablet daily [...] before bedtime. 180 Tablet 3 4 Active OneTouch Verio w/Device Kit Use up to 4 times a day E11.9 1 Kit 4 Active predniSONE 10 MG Oral Tablet (Deltasone)Indic ations:PMR (polymyalgia rheumatica) (HCC) Take 1 Tablet by mouth in the morning. 90 Tablet 4 Active predniSONE 2.5 MG Oral Tablet (Deltasone)Indic [...] hemoglobin A1c goal of less than 7.0% ([facility]) Take 1 Tablet by mouth daily. 90 Tablet 3 4 Active OneTouch Ultra Test In Vitro Strip (Glucose Blood)Indication s:Type 2 diabetes mellitus with hemoglobin A1c goal of less than 7.0% ([facility]) Use to check blood sugars once per day Dx E11.9 100 Strip 5 4 Active hydroCHLOROthiaz giuliano 25 MG Oral Tablet (Hydrodiuril)Ind ications:Chronic coronary artery disease,HTN, goal below 130/80 TAKE 1 TABLET BY MOUTH EVERY MORNING 90 Tablet 4 Active predniSONE 5 MG Oral Tablet (Deltasone)Indic ations:PMR (polymyalgia rheumatica) ([facility]) Take 1 Tablet by mouth in the morning. 90 Tablet 4 Active documented as of this encounter (statuses as of 09/14/2024) Active Problems Problem Noted Date Diagnosed Date [...] as of this encounter (statuses as of 09/14/2024) Resolved Problems Problem Noted Date Diagnosed Date Resolved Date Obstructive sleep apnea 11/28/2011/ Overview (11/28/2011): AHI 8..2 in April 2008 documented as of this encounter (statuses as of 09/14/2024) Immunizations Name Administration Dates Next Due COVID-19 [...] No 01/06/2024 Does the household have a re gular source of income? (Household - for ages [...] Description 09/21/2024 8:00 AM EST Office Visit Family Practice[address] [address] Dylan Barros MD [address] [place] [address] 10/22/2024 8:45 AM EST [facility] [place] [facility] [place] [address] [facility] [address] [place] [address] 12/14/2024 9:30 AM EST Office Visit Cardiology, [facility] [address] [facility] [place] [address] Nicole Severino PA-C [address] [place] [address] 01/20/2025 10:40 AM EDT Telemedicine Rheumatology, [place] [address] [place] [address] Tessa Duque [address] [place] [address] 04/01/2025 11:20 AM EDT Office Visit Sleep Disorders Ctr [facility] [address] [place] [address] Riddhi Cook DO [address] [place] [address] Scheduled Procedures Name Priority Associated Diagnoses Date/Ti [...] this encounter Medical Devices Implanted Type Area Manager Electronic Device Identifier Shelf Expiration Date Model / Serial / Lot Lead Pace Selectsecure 3830-69 - [id number] Implanted:Qty: 1 on 11/18/2022 by Nora Antonio DO at OR [facility] Lead Left: Heart [employer] : [facility] 10/18/2024 [id number] / / Description:RV LBBB Lead Novus Bipolar 52cm - [id number] - [id number] Implanted:Qty: 1 on 11/18/2022 by Nora Antonio DO at OR [facility] Lead Left: Heart [employer] : CRM 09/23/2024 5076-52 / [id number] / Description:RA Pacemaker [place] Xt Dr Banks Wrls - [id number] - [id number] Implanted:Qty: 1 on 11/18/2022 by Nora Antonio DO at OR [facility] Pacemaker Left: Chest [employer] 04/09/2024 W1DR01 / [id number] / Lens Intraoc 26.5 - [id number] - [id number] Implanted:Qty: 1 on 02/23/2019 by Jonas Valentino MD at OR [facility] Right: Eye BAUSCH & LOMB 05/26/2023 [id number] / [id number] Lens Intraoc 24.5 - [id number] - [id number] Implanted:Qty: 1 on 03/02/2019 by Jonas Valentino MD at OR [facility] Left: Eye BAUSCH & LOMB 08/26/2023 [id number] / [id number] / [id number] Envelope Antibacterial Tyrx - [id number] Implanted:Qty: 1 on 11/18/2022 by Nora Antonio DO at OR [facility] [employer] : CRM [id number] 08/09/2023 [facility] M6122 / / [id number] documented as of this encounter Procedures Procedure Name Priority Date/Time Associated Diagnosis Comments CARDIOLOGY SCANNED RESULT 09/14/2024 documented in this encounter Results * CARDIOLOGY SCANNED RESULT (09/14/2024) 09/14/2024 Vitaly Webster MD OTHER Final Result documented in this encounter Advance Directives * Full Code (Latest Code Status on File) Date Activated Date Inactivated Comments 04/05/2021 7:37 AM 04/05/2021 4:11 PM This order r eflects the patients wishes and were consensually agreed upon. Question Answer Comments Discussion of Advance Directives occurred with: Not Discussed Care Teams Forensic Computer Examiner Relationship Specialty Start Date End Date Dylan Barros MD [address] [facility] [place] [address] PCP - General Family Medicine 11/07/23 documented as of this encounter
--- OUTSIDE RECORDS SUMMARY | 2024-09-24 19:26 | External Medical Summary | Summary of Care ---
Author Name Unknown Organization [facility] Address [address] [place] [address] Phone [phone] Care Team Providers Care Substation Wireman Name Role Phone Dylan Barros MD Primary Care Provider +1- [phone] Reason for Visit * Reason Onset Date Comments Pacemaker Clinic 08/19/2024 Remote transmis jamie Encounter Details Date Type Department Care Team (Late st Contact Info) Description 08/19/2024 Telephone Cardiology, [facility] [address] [place] [address] [place], Pacer Clinic [facility] [address] [place] [address] Pacemaker Clinic (Remote transmission ) Allergies Active [...] before bedtime. 180 Tablet 3 03/10/2024 Active State w/Device Kit Use up to 4 times [...] goal of less than 7.0% ([facility]) Take 1 Tablet by mouth daily. 90 Tablet 3 07/10/2024 Active OneTouch Ultra Test In Vitro Strip (Glucose Blood)Indications: Type 2 diabetes mellitus with hemoglobin A1c goal of less than 7.0% ([facility]) Use to check blood sugars once per [...] AHI was 17.1 DME: [facility], [place] Titration study 04/27/12 set pressure of 8 [...] 30 Mcg, IM, 12 yrs and above ([facility]) 08/01/2022 DT - Diptheria/Tetanus (PEDS) 06/06/2005 Pneumococcal [...] with or suggestive of Atrial Fibrillation AT/AF [place]: 1.5% Total number of events: 8 Ongoing episode from 08/19/2024 at 0250 Additional Notes: Eliquis Appropriate AT/AF Therapy: Unsuccessful Stored EGMs are consistent with or suggestive of AT/AF with unsuccessful therapy Total episodes: 8 AT [place]: 1.5% Number of ATP therapy: 2 documented in this encounter Plan of Treatment Upcoming Encounters Date Type Department Care Team (Late st Contact Info) Description 09/06/2024 4:20 PM [facility] Rheumatology[address] [address] Dunia Tessa, DO [address] [place] [address] 09/21/2024 8:00 AM EST Office Visit [facility] [address] [place] [phone] Dylan Barros MD [address] [place] [address] 12/14/2024 9:30 AM EST Office Visit Cardiology, [facility] [address] [facility] [place] [address] Nicole Severino PA-C [address] [place] [address] 04/01/2025 11:20 AM EDT Office Visit Sleep Disorders Ctr [facility] [address] [place] [address] Riddhi Cook, DO [address] [place] [address] Scheduled Procedures Name Priority Associated Diagnoses Date/Ti [...] this encounter Medical Devices Implanted Type Area Laboratory Phlebotomist Device Identifier Shelf Expiration Date Model / Serial / Lot Lead Pace Selectsecure 3830-69 - [id number] Implanted:Qty: 1 on 11/18/2022 by Nora Antonio DO at OR [facility] Lead Left: Heart [employer] : CAR 10/18/2024 [id number] / / Description:RV LBBB Lead Novus Bipolar 52cm - [id number] - [id number] Implanted:Qty: 1 on 11/18/2022 by Nora Antonio DO at OR [facility] Lead Left: Heart [employer] : CRM 09/23/2024 5076-52 / [id number] / Description:RA Pacemaker Dana Xt Dr Jocelyn Wrls - [id number] - [id number] Implanted:Qty: 1 on 11/18/2022 by Nora Antonio DO at OR [facility] Pacemaker Left: Chest [employer] 04/09/2024 W1DR01 / [id number] / Lens Intraoc 26.5 - [id number] - [id number] Implanted:Qty: 1 on 02/23/2019 by Jonas Valentino MD at OR [facility] Right: Eye BAUSCH & LOMB 05/26/2023 [id number] 5 / [id number] / [id number] Lens Intraoc 24.5 - [id number] - [id number] Implanted:Qty: 1 on 03/02/2019 by Jonas Valentino MD at OR [facility] Left: Eye BAUSCH & LOMB 08/26/2023 [id number] 5 / [id number] / [id number] Envelope Antibacterial Tyrx - [id number] Implanted:Qty: 1 on 11/18/2022 by Nora Antonio DO at OR [facility] [employer] : CRM [id number] 08/09/2023 [facility] M6122 / / [id number] documented as of this encounter Advance Directives * Full Code (Latest Code Status on File) Date Activated Date Inactivated Comments 04/05/2021 7:37 AM 04/05/2021 4:11 PM This order r eflects the patients wishes and were consensually agreed upon. Question Answer Comments Discussion of Advance Directives occurred with: Not Discussed Care Teams Substation Wireman Relationship Specialty Start Date End Date Dylan Barros MD [address] [facility] [id number] PCP - General Family Medicine 11/07/23 documented as of this encounter
--- OUTSIDE RECORDS SUMMARY | 2024-09-24 19:26 | External Medical Summary | Summary of Care ---
Author Name Unknown Organization [facility] Address [address] [place] [address] Phone [phone] Care Team Providers Care Funeral Director Name Role Phone Dylan Barros MD Primary Care Provider +1- [phone] Reason for Referral * Evaluate & Treat - Unlimited Visits (Within 30 days (routine)) - Authorized Specialty Diagnoses / Procedures Referred By Contact Referred To Contact Cardiac Electrophysiology / Cardiology Diagnoses PAF (paroxysmal atrial fibrillation) (HCC) SSS (sick sinus syndrome) (HCC) LBBB (left bundle branch block) Cardiac pacemaker in situ Nora Antonio DO [address] [place] [address] [place] [facility] [address] [place] [address] Referral ID Status Reason Start Date Expiration Date Visits Requested Visits Authorized [id number] Authorized Specialty Services Required 4 [phone] Question Answer Referral Priority Within 30 days (routine) Where should this appointment be scheduled? [place] Comments Recurrent PAF; symptomatic. Has pacemaker - consider antiarrhythmic vs possible ablation Reason for Visit * Reason Onset Date Comments Pacemaker Clinic 08/19/2024 Remote transmis jamie Encounter Details Date Type Department Care Team (Late st Contact Info) Description 08/19/2024 Telephone Cardiology, [facility] [address] [facility] [place] [address] [place], Pacer Clinic [facility] [address] [place] [address] Pacemaker Clinic (Remote transmission ) Allergies Active [...] as of this encounter Miscellaneous Notes * Addendum Note - Dai Scott PA-C [...] with or suggestive of Atrial Fibrillation AT/AF [place]: 1.5% Total number of events: 8 Ongoing episode from 08/19/2024 at 0250 Additional Notes: Eliquis Appropriate AT/AF Therapy: Unsuccessful Stored EGMs are consistent with or suggestive of AT/AF with unsuccessful therapy Total episodes: 8 AT [place]: 1.5% Number of ATP therapy: 2 documented in this encounter Plan of Treatment Upcoming Encounters Date Type Department Care Team (Late st Contact Info) Description 09/06/2024 4:20 PM EST Telemedicine Rheumatology, [place] [address] [place] [address] Dunia Tessa, [address] [place] [address] 09/21/2024 8:00 AM EST Office Visit Family [facility] [address] [place] [address] Dylan Barros MD [address] [place] [address] 12/14/2024 9:30 AM EST Office Visit Cardiology, [facility] [address] [facility] [place] [address] Dai Scott, [place] [address] [place] [address] 04/01/2025 11:20 AM EDT Office Visit Sleep Disorders [facility] [address] [facility] [place] [address] Riddhi Cook, [address] [place] [address] Scheduled Procedures Name Priority Associated Diagnoses Date/Ti [...] this encounter Medical Devices Implanted Type Area Edge Worker Device Identifier Shelf Expiration Date Model / Serial / Lot Lead Pace Selectsecure 3830-69 - [id number] Implanted:Qty: 1 on 11/18/2022 by Nora Antonio DO at OR [facility] Lead Left: Heart [employer] : [facility] 10/18/2024 [id number] / / Description:RV LBBB Lead Novus Bipolar 52cm - [id number] - [id number] Implanted:Qty: 1 on 11/18/2022 by Nora Antonio DO at OR [facility] Lead Left: Heart [employer] : [facility] 09/23/2024 5076-52 / [id number] / Description:RA Pacemaker Dana Xt Dr Banks ls - [id number] - [id number] Implanted:Qty: 1 on 11/18/2022 by Nora Antonio DO at OR [facility] Pacemaker Left: Chest [employer] 04/09/2024 W1DR01 / [id number] / Lens Intraoc 26.5 - [id number] - [id number] Implanted:Qty: 1 on 02/23/2019 by Jonas Valentino MD at OR [facility] Right: Eye BAUSCH & LOMB 05/26/2023 [id number] 5 / [id number] / [id number] Lens Intraoc 24.5 - [id number] - [id number] Implanted:Qty: 1 on 03/02/2019 by Jonas Valentino MD at OR [facility] Left: Eye BAUSCH & LOMB 08/26/2023 [id number] / [id number] / [id number] Envelope Antibacterial Tyrx - [id number] Implanted:Qty: 1 on 11/18/2022 by Nora Antonio DO at OR [facility] [employer] : [facility] [id number] 08/09/2023 [facility] M6122 / / [id number] documented as of this encounter Visit Diagnoses Diagnosis PAF (paroxysmal atrial fibrillation) ([facility])- Primary Atrial fibrillation SSS (sick sinus syndrome) ([facility]) Sinoatrial node dysfunction LBBB (left bundle branch [...] Directives occurred with: Not Discussed Care Teams Funeral Director Relationship Specialty Start Date End Date Dylan Barros MD [address] [facility] [place] [phone] PCP - General Family Medicine 11/07/23 documented as of this encounter
--- OUTSIDE RECORDS SUMMARY | 2024-09-24 19:26 | External Medical Summary | Summary of Care ---
Author Name Unknown Organization [facility] Address [address] [place] [address] Phone [phone] Care Team Providers Care Sponge Clipper Name Role Phone Dylan Barros MD Primary Care Provider +1- [phone] Reason for Referral * Evaluate & Treat - Unlimited Visits (Within 30 days (routine)) - Authorized Specialty Diagnoses / Procedures Referred By Contact Referred To Contact Cardiac Electrophysiology / Cardiology Diagnoses PAF (paroxysmal atrial fibrillation) (HCC) SSS (sick sinus syndrome) (HCC) LBBB (left bundle branch block) Cardiac pacemaker in situ Nroa Antonio DO [address] [place] [address] [facility] [address] [place] [address] Referral ID Status Reason Start Date Expiration Date Visits Requested Visits Authorized [id number] Authorized Specialty Services Required 4 999 999 Question Answer Referral Priority Within 30 days (routine) Where should this appointment be scheduled? [place] Comments Recurrent PAF; symptomatic. Has pacemaker - consider antiarrhythmic vs possible ablation Reason for Visit * Reason Onset Date Comments Pacemaker Clinic 08/19/2024 Remote transmis jamie Encounter Details Date Type Department Care Team (Late st Contact Info) Description 08/19/2024 Telephone Cardiology, [facility] 132 [facility] [place] [address] [place], Pacer Clinic [facility] [address] [place] [address] Pacemaker Clinic (Remote transmission ) Allergies Active [...] with or suggestive of Atrial Fibrillation AT/AF [place]: 1.5% Total number of events: 8 Ongoing episode from 08/19/2024 at 0250 Additional Notes: Eliquis Appropriate AT/AF Therapy: Unsuccessful Stored EGMs are consistent with or suggestive of AT/AF with unsuccessful therapy Total episodes: 8 AT [place]: 1.5% Number of ATP therapy: 2 documented in this encounter Plan of Treatment Upcoming Encounters Date Type Department Care Team (Late st Contact Info) Description 09/06/2024 4:20 PM EST Telemedicine Rheumatology, [place] [address] [place] [address] Tessa Duque [address] [place] [address] 09/21/2024 8:00 AM EST Office Visit [facility] [address] [place] [address] Dylan Barros MD [address] [place] [address] 12/14/2024 9:30 AM EST Office Visit Cardiology, [facility] 132 [facility] [place] [address] Dai Scott PA-C 132 [facility] [place] [address] 04/01/2025 11:20 AM EDT Office Visit [facility] 132 [facility] [place] [phone] Riddhi Cook, 132 [facility] [place] [address] Scheduled Procedures Name Priority Associated Diagnoses Date/Ti [...] this encounter Medical Devices Implanted Type Area Site Worker Device Identifier Shelf Expiration Date Model / Serial / Lot Lead Pace Selectsecure 3830-69 - [id number] Implanted:Qty: 1 on 11/18/2022 by Nora Antonio DO at OR [facility] Lead Left: Heart [employer] : CAR 10/18/2024 [id number] / / Description:RV LBBB Lead Novus Bipolar 52cm - [id number] - [id number] Implanted:Qty: 1 on 11/18/2022 by Nora Antonio DO at OR [facility] Lead Left: Heart [employer] : CAR 09/23/2024 5076-52 / [id number] / Description:RA Pacemaker [place] Xt [address] Banks Wrls - [id number] - [id number] Implanted:Qty: 1 on 11/18/2022 by Nora Antonio DO at OR [facility] Pacemaker Left: Chest [employer] 04/09/2024 [id number] / [id number] / Lens Intraoc 26.5 - [id number] - [id number] Implanted:Qty: 1 on 02/23/2019 by Jonas Valentino MD at OR [facility] Right: Eye BAUSCH & LOMB 05/26/2023 [id number] / [id number] / [id number] Lens Intraoc 24.5 - [id number] - [id number] Implanted:Qty: 1 on 03/02/2019 by Jonas Valentino MD at OR [facility] Left: Eye BAUSCH & LOMB 08/26/2023 [id number] / [id number] / [id number] Envelope Antibacterial Tyrx - [id number] Implanted:Qty: 1 on 11/18/2022 by Nora Antonio DO at OR [facility] [employer] : CRM [id number] 08/09/2023 [facility] [id number] / / [id number] documented as of this encounter Visit Diagnoses Diagnosis PAF (paroxysmal atrial fibrillation) ([facility])- Primary Atrial fibrillation SSS (sick sinus syndrome) ([facility]) Sinoatrial node dysfunction LBBB (left bundle [...] Directives occurred with: Not Discussed Care Teams Sponge Clipper Relationship Specialty Start Date End Date Dylan Barros MD [address] [place] [address] PCP - General Family Medicine 11/07/23 documented as of this encounter
--- OUTSIDE RECORDS SUMMARY | 2024-09-24 19:26 | External Medical Summary | Summary of Care ---
Author Name Unknown Organization [facility] Address [address] [place] [address] Phone [phone] Care Team Providers Care First Line Supervisor Name Role Phone Dylan Barros MD Primary Care Provider +1- [phone] Reason for Visit * Reason Onset Date Comments Pacemaker Clinic 08/19/2024 Remote transmis jamie Encounter Details Date Type Department Care Team (Late st Contact Info) Description 08/19/2024 Telephone Cardiology, [facility] 132 [facility] [place] [place] [address] [place], Pacer Clinic [facility] 132 [place] [address] Pacemaker Clinic (Remote transmission ) Allergies Active [...] before bedtime. 180 Tablet 3 03/10/2024 Active [employer] w/Device Kit Use up to 4 times [...] hemoglobin A1c goal of less than 7.0% ([facility]) Take 1 Tablet by mouth daily. 90 Tablet 3 07/10/2024 Active OneTouch Ultra Test In Vitro Strip (Glucose Blood)Indications: Type 2 diabetes mellitus with hemoglobin A1c goal of less than 7.0% ([facility]) Use to check blood sugars [...] AHI was 17.1 DME: [facility], [place] Titration study 04/27/12 set pressure of 8 [...] 30 Mcg, IM, 12 yrs and above ([employer]) 08/01/2022 DT - Diptheria/Tetanus (PEDS) 06/06/2005 Pneumococcal [...] encounter Miscellaneous Notes * Addendum Note - Matt Hayes LPN - 08/23/2024 3:22 PM EDTAddended by: MATT HAYES on: 08/23/2024 03:22 PM Modules accepted: Orders * Telephone Encounter - Matt Hayes LPN - 08/23/2024 3:21 PM EDT Patient agreeable. Please place EP referral. * Telephone Encounter - Nicole Severino PA-C [...] with or suggestive of Atrial Fibrillation AT/AF [place]: 1.5% Total number of events: 8 Ongoing episode from 08/19/2024 at 0250 Additional Notes: Eliquis Appropriate AT/AF Therapy: Unsuccessful Stored EGMs are consistent with or suggestive of AT/AF with unsuccessful therapy Total episodes: 8 AT [place]: 1.5% Number of ATP therapy: 2 documented in this encounter Plan of Treatment Upcoming Encounters Date Type Department Care Team (Late st Contact Info) Description 09/06/2024 4:20 PM EST Telemedicine Rheumatology, [place] [address] [place] [address] Tessa Duque DO [address] [place] [address] 09/21/2024 8:00 AM EST Office Visit [facility] [address] [place] [address] Dylan Barros MD [address] [place] [address] 12/14/2024 9:30 AM EST Office Visit Cardiology, [facility] 132 [facility] [place] [address] Nicole Severino PA-C 132 [facility] [place] [address] 04/01/2025 11:20 AM EDT Office Visit Sleep Disorders [facility] 132 [facility] [place] [phone] Riddhi Cook, [address] [place] [address] Scheduled Procedures Name Priority Associated Diagnoses Date/Ti [...] this encounter Medical Devices Implanted Type Area Drug Worker Device Identifier Shelf Expiration Date Model / Serial / Lot Lead Pace Selectsecure 3830-69 - [id number] Implanted:Qty: 1 on 11/18/2022 by Nora Antonio DO at OR [facility] Lead Left: Heart [employer] : CRA 10/18/2024 [id number] / / Description:RV LBBB Lead Novus Bipolar 52cm - [id number] - [id number] Implanted:Qty: 1 on 11/18/2022 by Nora Antonio DO at OR [facility] Lead Left: Heart [employer] : CAR 09/23/2024 5076-52 / [id number] / Description:RA Pacemaker [place] Xt Dr Banks Wrls - [id number] - [id number] Implanted:Qty: 1 on 11/18/2022 by Nora Antonio DO at OR [facility] Pacemaker Left: Chest [employer] 04/09/2024 W1DR01 / [id number] / Lens Intraoc 26.5 - [id number] - [id number] Implanted:Qty: 1 on 02/23/2019 by Jonas Valentino MD at OR [facility] Right: Eye BAUSCH & LOMB 05/26/2023 [id number] / [id number] / [id number] Lens Intraoc 24.5 - [id number] - [id number] Implanted:Qty: 1 on 03/02/2019 by Jonas Valentino MD at OR [facility] Left: Eye BAUSCH & LOMB 08/26/2023 [id number] / [id number] / [id number] Envelope Antibacterial Tyrx - [id number] Implanted:Qty: 1 on 11/18/2022 by Nora Antonio DO at OR [facility] [employer] : [facility] [id number] 08/09/2023 [facility] M6122 / / [id number] documented as of this encounter Advance Directives * Full Code (Latest Code Status on File) Date Activated Date Inactivated Comments 04/05/2021 7:37 AM 04/05/2021 4:11 PM This order r eflects the patients wishes and were consensually agreed upon. Question Answer Comments Discussion of Advance Directives occurred with: Not Discussed Care Teams First Line Supervisor Relationship Specialty Start Date End Date Dylan Barros MD [address] [place] [address] PCP - General Family Medicine 11/07/23 documented as of this encounter
--- OUTSIDE RECORDS SUMMARY | 2024-09-24 19:27 | External Medical Summary | Summary of Care ---
Author Name Unknown Organization [facility] Address [address] [place] [address] Phone [phone] Care Team Providers Care Ecotherapist Name Role Phone Dylan Barros MD Primary Care Provider +1- [phone] Reason for Visit * Reason Onset Date Comments Pacemaker Clinic 08/19/2024 Remote transmis jamie Encounter Details Date Type Department Care Team (Late st Contact Info) Description 08/19/2024 Telephone Cardiology, [facility] 132 [place] [address] [place], Pacer Clinic [facility] 132 [place] [address] Pacemaker Clinic (Remote transmission ) Allergies Active [...] before bedtime. 180 Tablet 3 03/10/2024 Active Teranode w/Device Kit Use up to 4 times [...] hemoglobin A1c goal of less than 7.0% ([facility]) Take 1 Tablet by mouth daily. 90 Tablet 3 07/10/2024 Active OneTouch Ultra Test In Vitro Strip (Glucose Blood)Indications: Type 2 diabetes mellitus with hemoglobin A1c goal of less than 7.0% ([facility]) Use to check blood sugars once [...] AHI was 17.1 DME: [facility], [place] Titration study 04/27/12 set pressure of 8 [...] 30 Mcg, IM, 12 yrs and above ([place]) 08/01/2022 DT - Diptheria/Tetanus (PEDS) 06/06/2005 Pneumococcal [...] encounter Miscellaneous Notes * Telephone Encounter - Matt Hayes LPN [...] with or suggestive of Atrial Fibrillation AT/AF [place]: 1.5% Total number of events: 8 Ongoing episode from 08/19/2024 at 0250 Additional Notes: Eliquis Appropriate AT/AF Therapy: Unsuccessful Stored EGMs are consistent with or suggestive of AT/AF with unsuccessful therapy Total episodes: 8 AT [place]: 1.5% Number of ATP therapy: 2 documented in this encounter Plan of Treatment Upcoming Encounters Date Type Department Care Team (Late st Contact Info) Description 09/06/2024 4:20 PM EST Telemedicine Rheumatology, [place] [address] [place] [address] Tessa Duque DO [address] [place] [address] 09/21/2024 8:00 AM EST Office Visit [place] [address] [place] [address] Dylan Barros MD [address] [place] [facility] [place] [address] 12/14/2024 9:30 AM EST Office Visit Cardiology, [facility] [address] [place] [address] Nicole Severino, PA-C [address] [place] [address] 04/01/2025 11:20 AM EDT Office Visit [facility] Disorders [facility] [address] [place] [phone] Riddhi Cook DO [address] [place] [address] Scheduled Procedures Name Priority Associated Diagnoses Date/Ti [...] this encounter Medical Devices Implanted Type Area Strip Machine Operator Device Identifier Shelf Expiration Date Model / Serial / Lot Lead Pace Selectsecure 3830-69 - [id number] Implanted:Qty: 1 on 11/18/2022 by Nora Antonio DO at OR [facility] Lead Left: Heart [employer] : CRM 10/18/2024 [id number] / / Description:RV LBBB Lead Novus Bipolar 52cm - [id number] - [id number] Implanted:Qty: 1 on 11/18/2022 by Nora Antonio DO at OR [facility] Lead Left: Heart [employer] : CRM 09/23/2024 5076-52 / [id number] / Description:RA Pacemaker [place] Xt Dr Banks Wrls - [id number] - [id number] Implanted:Qty: 1 on 11/18/2022 by Nora Antonio DO at OR [facility] Pacemaker Left: Chest [employer] 04/09/2024 W1DR01 / [id number] / Lens Intraoc 26.5 - [id number] - [id number] Implanted:Qty: 1 on 02/23/2019 by Jonas Valentino MD at OR [facility] Right: Eye BAUSCH & LOMB 05/26/2023 [id number] 5 / [id number] / [id number] Lens Intraoc 24.5 - [id number] - [id number] Implanted:Qty: 1 on 03/02/2019 by Jonas Valentino MD at OR [facility] Left: Eye BAUSCH & LOMB 08/26/2023 [id number] / [id number] / [id number] Envelope Antibacterial Tyrx - [id number] Implanted:Qty: 1 on 11/18/2022 by Nora Antonio DO at OR [facility] [employer] : CRM [id number] 08/09/2023 C[facility] M6122 / / [id number] documented as of this encounter Advance Directives * Full Code (Latest Code Status on File) Date Activated Date Inactivated Comments 04/05/2021 7:37 AM 04/05/2021 4:11 PM This order r eflects the patients wishes and were consensually agreed upon. Question Answer Comments Discussion of Advance Directives occurred with: Not Discussed Care Teams Ecotherapist Relationship Specialty Start Date End Date Dylan Barros MD [address] [place] [address] PCP - General Family Medicine 11/07/23 documented as of this encounter
--- OUTSIDE RECORDS SUMMARY | 2024-09-24 19:27 | External Medical Summary | Summary of Care ---
Author Name Unknown Organization [facility] Address [address] [place] [address] Phone [phone] Care Team Providers Care Park Interpretive Ranger Name Role Phone Dylan Barros MD Primary Care Provider +1- [phone] Reason for Visit * Reason Onset Date Comments Durable Medical Equipment 07/29/2024 CPAP r eplacement Encounter Details Date Type Department Care Team (Late st Contact Info) Description 07/29/2024 Telephone Sleep Disorders Ctr [facility] [address] [place] [phone] Riddhi Cook DO 132 [facility] [place] [phone] Durable Medical Equipment (CPAP replacement) Allergies Active Allergy Reactions Criticality Noted Date Comments Albuterol High 04/04/2022 Other reaction(s): racing heart Citalopram 04/04/2022 Other reaction(s): Unknown Sulfa Antibiotics Hives Medium 07/07/2000 documented as of this encounter (statuses as of 07/29/2024) Medications Medication Sig Dispensed Refills Start Date [...] 1 Capsule by mouth every evening. Active hydroCHLOROthiazide 25 MG Oral Tablet (Hydrodiuril)Indica tions:Chronic coronary artery disease,HTN, goal below 130/80 Take 1 Tablet by mouth in the morning. 90 Tablet 3 10/21/2023 Active Sertraline HCl 100 MG Oral Tablet (Zoloft)Indications :Recurrent major depressive disorder, in partial remission (HCC) TAKE 1 & 1/2 TABLETS BY MOUTH DAILY IN THE MORNING 135 Tablet 3 03/01/2024 Active Empagliflozin 10 MG Oral Tablet (Jardiance) Take 1 Tablet by mouth in the morning. 90 Tablet 3 03/02/2024 Active Potassium Chloride Tish ER 20 MEQ Oral Tablet Extended ReleaseIndications: HTN, goal below 130/80,Paroxysmal atrial fibrillation (HCC) Take 1 Tablet by mouth in the morning and 1 Tablet before bedtime. 180 Tablet 3 03/10/2024 Active CitalDocuch Verio w/Device Kit Use up to 4 times a day E11.9 1 Kit 03/23/2024 Active predniSONE 10 MG Oral Tablet (Deltasone)Indicati ons:PMR (polymyalgia rheumatica) (HCC) Take 1 Tablet by mouth in the morning. 90 Tablet 04/09/2024 Active predniSONE 5 MG Oral Tablet (Deltasone)Indicati ons:PMR (polymyalgia rheumatica) (HCC) Take 1 Tablet by mouth in the morning. 90 Tablet 04/09/2024 Active Additional Information Patient not taking.Reported on 06/14/2024 predniSONE 2.5 MG Oral Tablet (Deltasone)Indicati ons:PMR (polymyalgia rheumatica) (HCC) Take 1 Tablet by [...] 05/10/2024 Active Eliquis 5 MG Oral Tablet (Apixaban)Indicatio ns:Paroxysmal atrial fibrillation (HCC) TAKE 1 TABLET BY MOUTH EVERY MORNING AND 1 TABLET BEFORE BEDTIME 180 Tablet 3 05/31/2024 Active predniSONE 1 MG Oral Tablet (Deltasone)Indicati ons:PMR (polymyalgia rheumatica) (HCC) Take 4 Tablets by mouth in the morning. 360 Tablet 06/03/2024 09/01/2024 Active Additional Information Patient not taking.Reported on 06/14/2024 traZODone HCl 50 MG Oral Tablet (Desyrel)Indication s:Insomnia, unspecified type Take 0.5 Tablets by mouth at bedtime. 90 Tablet 1 06/14/2024 Active Metoprolol Succinate ER 25 MG Oral Tablet Extended Release 24 Hour (toPROL XL)Indications:Paro xysmal atrial fibrillation (HCC) Take 1 Tablet by mouth in the morning. This is in addition to the 50 mg tablet daily. 90 Tablet 3 06/15/2024 Active Levothyroxine Sodium 50 MCG Oral Tablet (Levoxyl)Indication s:Hypothyroidism, unspecified type TAKE 1&1/2 TABLETS BY MOUTH DAILY ALTERNATING WITH 1 TABLET DAILY (at least 30 min prior to breakfast or other meds) 135 Tablet 3 06/16/2024 Active metFORMIN HCl ER 500 MG Oral Tablet Extended Release 24 Hour (Glucophage XR)Indications:Type 2 diabetes mellitus with hemoglobin A1c goal of less than 7.0% ([facility]) Take 1 Tablet by mouth daily. 90 Tablet 3 07/10/2024 Active FireLayersTouch Ultra Test In Vitro Strip (Glucose Blood)Indications:T ype 2 diabetes mellitus with hemoglobin A1c goal of less than 7.0% ([facility]) Use to check blood sugars once per day Dx E11.9 100 Strip 5 07/13/2024 Active documented as of this encounter (statuses as of 07/29/2024) Active Problems Problem Noted Date Diagnosed Date [...] AHI was 17.1 DME: [facility], [place] Titration study 04/27/12 set pressure of 8 cm HTN, goal below 130/80 01/09/2011 Chronic coronary artery disease 09/15/2010 Overview: Cath 2006 - 30% mid LAD stenosis Dyslipidemia, goal LDL below 70 09/15/2010 documented as of this encounter (statuses as of 07/29/2024) Resolved Problems Problem Noted Date Diagnosed Date Resolved Date Obstructive sleep apnea 11/28/201101/26 Overview: AHI 8..2 in April 2008 documented as of this encounter (statuses as of 07/29/2024) Immunizations Name Administration Dates Next Due COVID-19 [...] encounter Miscellaneous Notes * Telephone Encounter - Eva Ceja OSA - 07/29/2024 8:07 AM EDT DME order for replacement CPAP submitted to [facility]. documented in this encounter Plan of Treatment Upcoming Encounters Date Type Department Care Team (Late st Contact Info) Description 09/06/2024 4:20 PM EST [facility] [address] [place] [address] Tessa Duque DO [address] [place] [address] 09/21/2024 8:00 AM EST Office Visit [facility] [address] [place] [address] Dylan Barros MD [address] [place] [address] Scheduled Procedures Name Priority Associated Diagnoses Date/Ti [...] Cancer Screening 01/14/2027 Zoster Vaccines Completed 07/16/2023, 030 12/2022, 06/14/2015 HPV (Gardasil) Vaccine Aged Out No lo nger eligible based on patient's age to complete this topic Hepatitis B Vaccine Aged Out No longe r eligible based on patient's age to complete this topic MENINGOCOCCAL (MENACTRA/MENVEO) Aged Out No longer eligible based on patient's age to complete this topic documented as of this encounter Medical Devices Implanted Type Area Heater Tender Device Identifier Shelf Expiration Date Model / Serial / Lot Lead Pace Selectsecure 3830-69 - [id number] Implanted:Qty: 1 on 11/18/2022 by Nora Antonio DO at OR [facility] Lead Left: Heart [employer] : CAR 10/18/2024 [id number] / / Description:RV LBBB Lead Novus Bipolar 52cm - [id number] - [id number] Implanted:Qty: 1 on 11/18/2022 by Nora Antonio DO at OR [facility] Lead Left: Heart [employer] : CRM 09/23/2024 5076-52 / [id number] / Description:RA Pacemaker [place] Xt Dr Banks Wrls - [id number] - [id number] Implanted:Qty: 1 on 11/18/2022 by Nora Antonio DO at OR [facility] Pacemaker Left: Chest [employer] 04/09/2024 W1DR01 / [id number] / Lens Intraoc 26.5 - [id number] - [id number] Implanted:Qty: 1 on 02/23/2019 by Jonas Valentino MD at OR [facility] Right: Eye BAUSCH & LOMB 05/26/2023 [id number] / [id number] / [id number] Lens Intraoc 24.5 - [id number] - [id number] Implanted:Qty: 1 on 03/02/2019 by Jonas Valentino MD at OR [facility] Left: Eye BAUSCH & LOMB 08/26/2023 [id number] / [id number] / [id number] Envelope Antibacterial Tyrx - [id number] Implanted:Qty: 1 on 11/18/2022 by Nora Antonio DO at OR [facility] [employer] : CRM [id number] 08/09/2023 CMR M6122 / / [id number] documented as of this encounter Advance Directives * Full Code (Latest Code Status on File) Date Activated Date Inactivated Comments 04/05/2021 7:37 AM 04/05/2021 4:11 PM This order reflects the patients wishes and were consensually agreed upon. Question Answer Comments Discussion of Advance Directives occurred with: Not Discussed Care Teams Park Interpretive Ranger Relationship Specialty Start Date End Date Dylan Barros MD [address] [facility] [place] [address] PCP - General Family Medicine 11/07/23 documented as of this encounter
--- OUTSIDE RECORDS SUMMARY | 2024-09-24 19:27 | External Medical Summary | Summary of Care ---
Author Name Unknown Organization [facility] Address [address] [place] [address] Phone [phone] Care Team Providers Care Oceanographer Physical Name Role Phone Dylan Barros MD Primary Care Provider [phone]- [phone] Reason for Visit * Reason Comments Insect Bite Encounter Details Date Type Department Care Team (Late st Contact Info) Description 08/12/2024 5:45 PM EDT Convenient Care Visit [facility] [address] [place] [address] Stephani Weaver CRNP [address] [place] [address] Skin infection* Allergies Active Allergy Reactions Criticality Noted Date Comments Albuterol High 04/04/2022 Other reaction(s): racing heart Citalopram 04/04/2022 Other reaction(s): Unknown Sulfa Antibiotics Hives Medium 07/07/2000 documented as of this encounter (statuses as of 08/12/2024) Medications Medication Sig Dispensed Refills Start Date [...] before bedtime. 180 Tablet 3 03/10/2024 Active Onehub w/Device Kit Use up to 4 times [...] 08/12/2024 traZODone HCl 50 MG Oral Tablet (Desyrel)Indication [...] hemoglobin A1c goal of less than 7.0% ([facility]) Take 1 Tablet by mouth daily. 90 Tablet 3 07/10/2024 Active OneTouch Ultra Test In Vitro Strip (Glucose Blood)Indications:T ype 2 diabetes mellitus with hemoglobin A1c goal of less than 7.0% ([facility]) Use to check blood sugars once per day Dx E11.9 100 Strip 5 07/13/2024 Active hydroCHLOROthiazide 25 MG Oral Tablet (Hydrodiuril)Indica tions:Chronic coronary artery disease,HTN, goal below 130/80 TAKE 1 TABLET BY MOUTH EVERY MORNING 90 Tablet 08/02/2024 Active Doxycycline Hyclate 100 MG Oral CapsuleIndications: Skin infection Take 1 Capsule by mouth in the morning and 1 Capsule before bedtime. Do all this for 10 days. Until gone.. 20 Capsule 08/12/2024 08/22/2024 Active documented as of this encounter (statuses as of 08/12/2024) Active Problems Problem Noted Date Diagnosed Date [...] AHI was 17.1 DME: [facility], [place] Titration study 04/27/12 set pressure of 8 cm HTN, goal below 130/80 01/09/2011 Chronic coronary artery disease 09/15/2010 Overview: Cath 2006 - 30% mid LAD stenosis Dyslipidemia, goal LDL below 70 09/15/2010 documented as of this encounter (statuses as of 08/12/2024) Resolved Problems Problem Noted Date Diagnosed Date Resolved Date Obstructive sleep apnea 11/28/201101/26 Overview: AHI 8..2 in April 2008 documented as of this encounter (statuses as of 08/12/2024) Immunizations Name Administration Dates Next Due COVID-19 [...] Passive Smoke Exposure: Never Smokeless Tobacco: Never Tobacco Cessation:Counseling Given: No Alcohol Use Standard Drinks/Week Comments Not Currently [...] Sign Reading Time Taken Comments Blood Pressure 130/92 08/12/2024 4:35 PM EDT Pulse 69 08/12/2024 4:35 PM EDT Temperature 36.5 C (97.7 F) 08/12/2024 4:35 PM ED T Respiratory Rate 18 08/12/2024 4:35 PM EDT Oxygen Saturation 94% 08/12/2024 4:35 PM EDT Inhaled Oxygen Concentration - - Weight 99.1 kg (218 lb 6.4 oz) 08/12/2024 4:35 P M EDT Height 160 cm (5' 3") 08/12/2024 4:35 PM EDT Body Mass Index 38.69 08/12/2024 4:35 PM EDT documented in this encounter Progress Notes * Stephani Weaver CRNP - 08/12/2024 6:24 PM EDT [facility] Care Basic Exam Subjective Ángel Kim is a 73 year old female that presents to the [facility] with a tickbite on the left side of her face/jaw that is itchy and red. She has a tingling sensation across face. This began 1 day ago. She believes the tick was approximately 1/2 cm long. She now has a red area that is firm with a scab on it. Objective BP 130/92 | Pulse 69 | Temp 36.5 C (97.7 F) (Tympanic) | Resp 18 | Ht 1.6 m (5' 3") | Wt 99.1 kg (218 lb 6.4 oz) | LMP 08/19/2000 | SpO2 94% | BMI 38.69 kg/m | BSA 2.1 m Body mass index is 38.69 kg/m. Review of Systems Constitutional: Negative. HENT: Negative. Eyes: Negative. Respiratory: Negative. Cardiovascular: Negative. Gastrointestinal: Negative. Genitourinary: Negative. Musculoskeletal: Negative. Skin: Tick bite Neurological: Negative. Physical Exam Vitals and nursing note reviewed. HENT: Head: Normocephalic. Right Ear: External ear normal. Nose: Nose normal. Eyes: Conjunctiva/sclera: Conjunctivae normal. Pupils: Pupils are equal, round, and reactive to light. Cardiovascular: Rate and Rhythm: Normal rate. Pulmonary: Effort: Pulmonary effort is normal. Musculoskeletal: General: Normal range of motion. Cervical back: Normal range of motion and neck supple. Skin: General: Skin is warm and dry. Capillary Refill: Capillary refill takes less than 2 seconds. Comments: Raised red area to curve of mandible directly down from left ear. Approximately 1cm x 1 cm. Scab on top. No drainage. No fluctuance. No sign of a bulls-eye rash. + warmth. Neurological: Mental Status: She is alert and oriented to person, place, and time. Past Medical History: Diagnosis Date Anxiety Arthritis osto Atrial fibrillation ([facility]) Cataract surgery Depression Diabetes mellitus ([facility]) GERD (gastroesophageal reflux disease) Hearing loss Hypertension Left bundle branch block Obesity Osteoporosis SSS (sick sinus syndrome) ([facility]) Thyroid disease Varicella disease as a child Patient Active Problem List Diagnosis Chronic coronary artery disease Dyslipidemia, goal LDL below 70 HTN, goal below 130/80 INEZ on CPAP Hypothyroidism LBBB (left bundle branch block) Paroxysmal atrial fibrillation ([facility]) Type 2 diabetes mellitus with hemoglobin A1c goal of less than 7.0% ([facility]) Microcytic anemia Bradycardia, sinus Multiple lung nodules JEFF (generalized anxiety disorder) Panic disorder without agoraphobia SSS (sick sinus syndrome) ([facility]) Recurrent major depressive disorder, in partial remission ([facility]) Cardiac pacemaker in situ PMR (polymyalgia rheumatica) ([facility]) BP Readings from Last 3 Encounters: 08/12/24 130/92 06/14/24 120/70 04/27/24 106/70 Wt Readings from Last 3 Encounters: 08/12/24 99.1 kg (218 lb 6.4 oz) 06/14/24 96.1 kg (211 lb 14.4 oz) 04/27/24 95.7 kg (211 lb) Assessment and plan Skin infection (Primary) - Doxycycline Hyclate 100 MG Oral Capsule; Take 1 Capsule by mouth in the morning and 1 Capsule before bedtime. Do all this for 10 days. Until gone.. Reviewed warning signs of Lyme disease or other tick-borne diseases. She will monitor closely for those symptoms. Reviewed that standard treatment for Lyme is 3 weeks of bid doxycycline. Prophylactictreatment for a bite without sign of lyme is a single dose of 200 mg. Skin infections, both with and without risk for MRSA could be treated by doxycycline. Reviewed options for treatment, we decided on treating the skin infection with a typical 10-day course of doxycycline to start. She will monitor for any development of a bullseye rash or systemic/general illness, fevers, and myalgias. Tick seems larger than the standard deer tick so risk may be lower for Lyme dse. If any additional swelling to area, especially if it begins to move toward the ear, eye, or neck, she will seek evaluation. Follow up Follow Up: Return if symptoms worsen or fail to improve. Total time today including reviewing chart before the visit, pertinent labs, imaging reports, face to face time, and documentation time was 15 minutes. The above was discussed and understanding was expressed. MYRIAM Santos documented in this encounter Nursing Notes * Stanley Coleman CMA - 08/12/2024 4:32 PM EDT Ángel Kim is a 73 year old female who presents to walk-in clinic today complaining of Chief Complaint Patient presents with Insect Bite Brief history:pt is present with itchy red bump and swelling on left side of jaw after pulling tickoff. Pt also states a "tingling" sensation across face Onset/duration 1x day. Tried N/A Effectiveness N/A Patient is accompanied by self for today's visit. documented in this encounter Plan of Treatment Upcoming Encounters Date Type Department Care Team (Late st Contact Info) Description 09/06/2024 4:20 PM EST Telemedicine Rheumatology, [place] [address] [place] [address] eTssa Duque DO [address] [place] [address] 09/21/2024 8:00 AM EST Office Visit [facility] [address] [place] [phone] Dylan Barros MD [address] [place] [address] 12/14/2024 9:30 AM EST Office Visit Cardiology, [facility] [address] [place] [id number] Nicole Severino PA-C [address] [place] [address] Scheduled Procedures Name Priority Associated Diagnoses Date/Ti [...] this encounter Medical Devices Implanted Type Area Interviewing Clerk Device Identifier Shelf Expiration Date Model / Serial / Lot Lead Pace Selectsecure 3830-69 - [id number] Implanted:Qty: 1 on 11/18/2022 by Nora Antonio DO at OR [facility] Lead Left: Heart [employer] : [facility] 10/18/2024 [id number] / / Description:RV LBBB Lead Novus Bipolar 52cm - [id number] - [id number] Implanted:Qty: 1 on 11/18/2022 by Nora Antonio DO at OR [facility] Lead Left: Heart [employer] : [facility] 09/23/2024 5076-52 / [id number] / Description:RA Pacemaker [place] Xt Dr Banks Wrls - [id number] - [id number] Implanted:Qty: 1 on 11/18/2022 by Nora Antonio DO at OR [facility] Pacemaker Left: Chest [employer] 04/09/2024 [id number] / [id number] / Lens Intraoc 26.5 - [id number] - [id number] Implanted:Qty: 1 on 02/23/2019 by Jonas Valentino MD at OR [facility] Right: Eye [employer]CH [employer] LOMB 05/26/2023 [id number] / [id number] / [id number] Lens Intraoc 24.5 - [id number] - [id number] Implanted:Qty: 1 on 03/02/2019 by Jonas Valentino MD at OR [facility] Left: Eye BAUSCH & LOMB 08/26/2023 [id number] / [id number] / [id number] Envelope Antibacterial Tyrx - [id number] Implanted:Qty: 1 on 11/18/2022 by Nora Antonio DO at OR [facility] [employer] : CRM [id number] 08/09/2023 CMR M6122 / / [id number] documented as of this encounter Visit Diagnoses Diagnosis Skin infection- Primary Unspecified local infection of skin and subcutaneous tissue documented in this encounter Advance Directives * Full Code (Latest Code Status on File) Date Activated Date Inactivated Comments 04/05/2021 7:37 AM 04/05/2021 4:11 PM This order r eflects the patients wishes and were consensually agreed upon. Question Answer Comments Discussion of Advance Directives occurred with: Not Discussed Care Teams Oceanographer Physical Relationship Specialty Start Date End Date Dylan Barros MD [address], [place] [phone] PCP - General Family Medicine 11/07/23 documented as of this encounter
--- OUTSIDE RECORDS SUMMARY | 2024-09-24 19:27 | External Medical Summary | Summary of Care ---
Author Name Unknown Organization [facility] Address [address] [place] [address] Phone [phone] Care Team Providers Care Payer Specialist Name Role Phone Dylan Barros MD Primary Care Provider [phone]- [phone] Encounter Details Date Type Department Care Team (Late st Contact Info) Description 07/13/2024 Telephone [facility] [address] [place] [address] Dylan Barros MD [address] [place] [address] Allergies Active Allergy Reactions Criticality Noted Date Comments Albuterol High 04/04/2022 Other reaction(s): racing heart Citalopram 04/04/2022 Other reaction(s): Unknown Sulfa Antibiotics Hives Medium 07/07/2000 documented as of this encounter (statuses as of 07/13/2024) Medications Medication Sig Dispensed Refills Start Date [...] 1 Capsule by mouth every evening. Active hydroCHLOROthiazid e 25 MG Oral Tablet [...] mouth in the morning. 360 Tablet 06/03/2024 4 Active Additional Information Patient not taking.Reported on 06/14/2024 traZODone HCl 50 MG Oral Tablet (Desyrel)Indicatio [...] goal of less than 7.0% ([facility]) Take 1 Tablet by mouth daily. 90 Tablet 3 07/10/2024 Active OneTouch Ultra Test In Vitro Strip (Glucose Blood)Indications: Type 2 diabetes mellitus with hemoglobin A1c goal of less than 7.0% ([facility]) Use to check blood sugars once per day Dx E11.9 100 Strip 5 07/13/2024 Active OneTouch Verio In Vitro Strip (Glucose Blood) Use up to 4 times a day E11.9 100 Strip 11 03/18/2024 4 Discontinue d(Medicatio n/Dose Changed) documented as of this encounter (statuses as of 07/13/2024) Active Problems Problem Noted Date Diagnosed Date [...] AHI was 17.1 DME: [facility], [place] Titration study 04/27/12 set pressure of 8 cm HTN, goal below 130/80 01/09/2011 Chronic coronary artery disease 09/15/2010 Overview: Cath 2006 - 30% mid LAD stenosis Dyslipidemia, goal LDL below 70 09/15/2010 documented as of this encounter (statuses as of 07/13/2024) Resolved Problems Problem Noted Date Diagnosed Date Resolved Date Obstructive sleep apnea 11/28/201101/26 Overview: AHI 8..2 in April 2008 documented as of this encounter (statuses as of 07/13/2024) Immunizations Name Administration Dates Next Due COVID-19 [...] Preserve, IM 07/09/2021,09/04/2020,09/10/2019,09/14,09/11/2018,10/07/2017,09/09/2016 ,09/09/2016,08/30/2015,08/22/2014,07/27,09/09/2005,09/08/2003, 2 Seasonal Influenza, [place] t, (IIV3), with Preserv, (Fluzone) 08/13/2013 TDAP (age 10 and older)(Boostrix) 07/18/2015 [...] encounter Miscellaneous Notes * Telephone Encounter - Dylan Barros MD - 07/13/2024 5:29 PM EDT sent * Telephone Encounter - Miriam Kumar LPN - 07/13/2024 12:06 PM EDT Patient is requesting test strips for One touch ultra strips to use with her meter. Usually gets 100 at a time. Please call Jennifer with patients insurance with any concerns or issues at documented in this encounter Plan of Treatment Upcoming Encounters Date Type Department Care Team (Late st Contact Info) Description 09/06/2024 4:20 PM EST Telemedicine Rheumatology, [place] [address] [place] [address] Tessa Duque [address] [place] [address] 09/21/2024 8:00 AM EST Office Visit [facility] [address] [place] [address] Dylan Barros MD [address] [place] [address] Scheduled Procedures Name Priority Associated [...] Additional history exists Albumin/Creatinine Ratio 07/08/2024 07/08/2023, 08/06/2022 HbA1c 09/01/2024 03/01/2024, 06/27, 11/26/2022, Additional history [...] this encounter Medical Devices Implanted Type Area Rotary Soil Stabilizer Device Identifier Shelf Expiration Date Model / Serial / Lot Lead Pace Selectsecure 3830-69 - [id number] Implanted:Qty: 1 on 11/18/2022 by Nora Antonio DO at OR [facility] Lead Left: Heart [employer] : [facility] 10/18/2024 [id number] / / Description:RV LBBB Lead Novus Bipolar 52cm - [id number] - [id number] Implanted:Qty: 1 on 11/18/2022 by Nora Antonio DO at OR [facility] Lead Left: Heart [employer] : CRM 09/23/2024 5076-52 / [id number] / Description:RA Pacemaker [place] Xt Dr Banks Wrls - [id number] - [id number] Implanted:Qty: 1 on 11/18/2022 by Nora Antonio DO at OR [facility] Pacemaker Left: Chest [employer] 04/09/2024 [id number] / [id number] / Lens Intraoc 26.5 - [id number] - [id number] Implanted:Qty: 1 on 02/23/2019 by Jonas Valentino MD at OR [facility] Right: Eye BAUSCH & LOMB 05/26/2023 [id number] / [id number] / [id number] Lens Intraoc 24.5 - [id number] - [id number] Implanted:Qty: 1 on 03/02/2019 by Jonas Valentino MD at OR [facility] Left: Eye BAUSCH & LOMB 08/26/2023 [id number] / [id number] / [id number] Envelope Antibacterial Tyrx - [id number] Implanted:Qty: 1 on 11/18/2022 by Nora Antonio DO at OR [facility] [employer] : CRM [id number] 08/09/2023 CMR M6122 / / [id number] documented as of this encounter Visit Diagnoses Diagnosis Type 2 diabetes mellitus with hemoglobin A1c goal of less than 7.0% ([facility])- Primary documented in this encounter Advance Directives * Full Code (Latest Code Status on File) Date Activated Date Inactivated Comments 04/05/2021 7:37 AM 04/05/2021 4:11 PM This order r eflects the patients wishes and were consensually agreed upon. Question Answer Comments Discussion of Advance Directives occurred with: Not Discussed Care Teams Payer Specialist Relationship Specialty Start Date End Date Dylan Barros MD [address] [facility] [place] [address] PCP - General Family Medicine 11/07/23 documented as of this encounter
--- OUTSIDE RECORDS SUMMARY | 2024-09-24 19:27 | External Medical Summary | Summary of Care ---
Author Name Unknown Organization [facility] Address [address] [place] [address] Phone [phone] Care Team Providers Care Senior Dynamics Crm Developer Name Role Phone Dylan Barros MD Primary Care Provider +1- [phone] Reason for Visit * Reason Onset Date Comments Pacemaker Clinic 08/19/2024 Remote transmis jamie Encounter Details Date Type Department Care Team (Late st Contact Info) Description 08/19/2024 Telephone Cardiology, [facility] [address] [place] [address] [place] [address] [place] [address] Pacemaker Clinic (Remote transmission ) Allergies Active Allergy Reactions Criticality Noted Date Comments Albuterol High 04/04/2022 Other reaction(s): racing heart Citalopram 04/04/2022 Other reaction(s): Unknown Sulfa Antibiotics Hives Medium 07/07/2000 documented as of this encounter (statuses as of 08/19/2024) Medications Medication Sig Dispensed Refills Start Date [...] before bedtime. 180 Tablet 3 03/10/2024 Active Catchoom w/Device Kit Use up to 4 times [...] A1c goal of less than 7.0% ([facility]) Take 1 Tablet by mouth daily. 90 Tablet 3 07/10/2024 Active OneTouch Ultra Test In Vitro Strip (Glucose Blood)Indications:T ype 2 diabetes mellitus with hemoglobin A1c goal of less than 7.0% ([facility]) Use to check blood sugars [...] as of this encounter (statuses as of 08/19/2024) Active Problems Problem Noted Date Diagnosed Date [...] AHI was 17.1 DME: [facility], [place] Titration study 04/27/12 set pressure of 8 cm HTN, goal below 130/80 01/09/2011 Chronic coronary artery disease 09/15/2010 Overview: Cath 2006 - 30% mid LAD stenosis Dyslipidemia, goal LDL below 70 09/15/2010 documented as of this encounter (statuses as of 08/19/2024) Resolved Problems Problem Noted Date Diagnosed Date Resolved Date Obstructive sleep apnea 11/28/201101/26 Overview: AHI 8..2 in April 2008 documented as of this encounter (statuses as of 08/19/2024) Immunizations Name Administration Dates Next Due COVID-19 mRNA, LNP-s, No Pre serve, 2-Dose Series (Moderna) 12/24/2020,11/19/2020 COVID-19, mRNA, LNP-s, PF, B ooster, 100mcg/0.5mg (Moderna) 08/18/2021 Covid-19, Mrna, Lnp-s, Pf, B ivalent, 30 Mcg, IM, 12 yrs and above ([facility]) 08/01/2022 DT - Diptheria/Tetanus (PEDS) 06/06/2005 Pneumococcal [...] with or suggestive of Atrial Fibrillation AT/AF [place]: 1.5% Total number of events: 8 Ongoing episode from 08/19/2024 at 0250 Additional Notes: Eliquis Appropriate AT/AF Therapy: Unsuccessful Stored EGMs are consistent with or suggestive of AT/AF with unsuccessful therapy Total episodes: 8 AT [place]: 1.5% Number of ATP therapy: 2 documented in this encounter Plan of Treatment Upcoming Encounters Date Type Department Care Team (Late st Contact Info) Description 09/06/2024 4:20 PM EST [facility] [address] [place] [address] Tessa Duque [address] [place] [address] 09/21/2024 8:00 AM EST Office Visit [facility] [address] [place] [address] Dylan Barros MD [address] [place] [address] 12/14/2024 9:30 AM EST Office Visit Cardiology, [facility] [address] [facility] [place] [address] Nicole Severino PA-C [address] [facility] [place] [address] 04/01/2025 11:20 AM EDT Office Visit Sleep Disorders [facility] [address] [facility] [place] [id number] Riddhi Cook, [address] [facility] [place] [address] Scheduled Procedures Name Priority Associated Diagnoses Date/Ti [...] this encounter Medical Devices Implanted Type Area Demurrage Agent Device Identifier Shelf Expiration Date Model / Serial / Lot Lead Pace Selectsecure 3830-69 - [id number] Implanted:Qty: 1 on 11/18/2022 by Nora Antonio DO at OR [facility] Lead Left: Heart [employer] : [facility] 10/18/2024 [id number] / / Description:RV LBBB Lead Novus Bipolar 52cm - [id number] - [id number] Implanted:Qty: 1 on 11/18/2022 by Nora Antonio DO at OR [facility] Lead Left: Heart [employer] : [facility] 09/23/2024 5076-52 / [id number] / Description:RA Pacemaker [place] Xt Dr Banks [facility] - [id number] - [id number] Implanted:Qty: 1 on 11/18/2022 by Nora Antonio DO at OR [facility] Pacemaker Left: Chest [employer] 04/09/2024 [id number] / [id number] / Lens Intraoc 26.5 - [id number] - [id number] Implanted:Qty: 1 on 02/23/2019 by Jonas Valentino MD at OR [facility] Right: Eye BAUSCH & LOMB 05/26/2023 [id number] / [id number] / [id number] Lens Intraoc 24.5 - [id number] - [id number] Implanted:Qty: 1 on 03/02/2019 by Jonas Valentino MD at OR [facility] Left: Eye BAUSCH & LOMB 08/26/2023 [id number] / [id number] / [id number] Envelope Antibacterial Tyrx - [id number] Implanted:Qty: 1 on 11/18/2022 by Nora Antonio DO at OR [facility] [employer] : [facility] [id number] 08/09/2023 CMR M6122 / / [id number] documented as of this encounter Advance Directives * Full Code (Latest Code Status on File) Date Activated Date Inactivated Comments 04/05/2021 7:37 AM 04/05/2021 4:11 PM This order r eflects the patients wishes and were consensually agreed upon. Question Answer Comments Discussion of Advance Directives occurred with: Not Discussed Care Teams Senior Dynamics Crm Developer Relationship Specialty Start Date End Date Dylan Barros MD [address] [place] [address] PCP - General Family Medicine 11/07/23 documented as of this encounter
--- OUTSIDE RECORDS SUMMARY | 2024-09-24 19:27 | External Medical Summary | Summary of Care ---
Author Name Unknown Organization [facility] Address [address] [place] [address] Phone [phone] Care Team Providers Care Landscape Management Technician Name Role Phone Dylan Barros MD Primary Care Provider [phone]- [phone] Reason for Visit * Reason Onset Date Comments Pacemaker Clinic 08/19/2024 Remote transmis jamie Encounter Details Date Type Department Care Team (Late st Contact Info) Description 08/19/2024 Telephone Cardiology, [facility] [address] [place] [address] [place], Pac[facility] Clinic [facility] [address] [place] [address] Pacemaker Clinic (Remote transmission ) Allergies Active Allergy Reactions Criticality Noted Date Comments Albuterol High 04/04/2022 Other reaction(s): racing heart Citalopram 04/04/2022 Other reaction(s): Unknown Sulfa Antibiotics Hives Medium 07/07/2000 documented as of this encounter (statuses as of 08/20/2024) Medications Medication Sig Dispensed Refills Start Date [...] before bedtime. 180 Tablet 3 03/10/2024 Active Hyperpia w/Device Kit Use up to 4 times [...] hemoglobin A1c goal of less than 7.0% ([facility]) Take 1 Tablet by mouth daily. 90 Tablet 3 07/10/2024 Active OneTouch Ultra Test In Vitro Strip (Glucose Blood)Indications:T ype 2 diabetes mellitus with hemoglobin A1c goal of less than 7.0% ([facility]) Use to check blood sugars [...] as of this encounter (statuses as of 08/20/2024) Active Problems Problem Noted Date Diagnosed Date [...] AHI was 17.1 DME: [facility], [place] Titration study 04/27/12 set pressure of 8 cm HTN, goal below 130/80 01/09/2011 Chronic coronary artery disease 09/15/2010 Overview: Cath 2006 - 30% mid LAD stenosis Dyslipidemia, goal LDL below 70 09/15/2010 documented as of this encounter (statuses as of 08/20/2024) Resolved Problems Problem Noted Date Diagnosed Date Resolved Date Obstructive sleep apnea 11/28/201101/26 Overview: AHI 8..2 in April 2008 documented as of this encounter (statuses as of 08/20/2024) Immunizations Name Administration Dates Next Due COVID-19 mRNA, LNP-s, No Pre serve, 2-Dose Series (Moderna) 12/24/2020,11/19/2020 COVID-19, mRNA, LNP-s, PF, B ooster, 100mcg/0.5mg (Moderna) 08/18/2021 Covid-19, Mrna, Lnp-s, Pf, B ivalent, 30 Mcg, IM, 12 yrs and above ([employer]) 08/01/2022 DT - Diptheria/Tetanus (PEDS) 06/06/2005 Pneumococcal [...] with or suggestive of Atrial Fibrillation AT/AF [place]: 1.5% Total number of events: 8 Ongoing episode from 08/19/2024 at 0250 Additional Notes: Eliquis Appropriate AT/AF Therapy: Unsuccessful Stored EGMs are consistent with or suggestive of AT/AF with unsuccessful therapy Total episodes: 8 AT [place]: 1.5% Number of ATP therapy: 2 documented in this encounter Plan of Treatment Upcoming Encounters Date Type Department Care Team (Late st Contact Info) Description 09/06/2024 4:20 PM EST Telemedicine Rheumatology, [place] [address] [place] [address] Tessa Duque, [address] [place] [address] 09/21/2024 8:00 AM EST Office Visit [facility] [address] [place] [address] Dylan Barros MD [address] [place] [address] 12/14/2024 9:30 AM EST Office Visit Cardiology, [facility] [address] [place] [address] Nicole Severino, TRA[place] [address] [place] [address] 04/01/2025 11:20 AM EDT Office Visit [facility] [address] [place] [phone] Riddhi Cook DO [address] [place] [address] Scheduled Procedures Name Priority Associated Diagnoses Date/Ti [...] this encounter Medical Devices Implanted Type Area Automobile Spring Repairer Device Identifier Shelf Expiration Date Model / Serial / Lot Lead Pace Selectsecure [id number] - [id number] Implanted:Qty: 1 on 11/18/2022 by Nora Antonio DO at OR [facility] Lead Left: Heart [employer] : CRM 10/18/2024 [id number] / / Description:RV LBBB Lead Novus Bipolar 52cm - [id number] - [id number] Implanted:Qty: 1 on 11/18/2022 by Nora Antonio DO at OR [facility] Lead Left: Heart [employer] : CRM 09/23/2024 5076-52 / [id number] / Description:RA Pacemaker [place] Xt Dr Banks Wrls - [id number] - [id number] Implanted:Qty: 1 on 11/18/2022 by Nora Antonio DO at OR [facility] Pacemaker Left: Chest [employer] 04/09/2024 [id number] / [id number] / Lens Intraoc 26.5 - [id number] - [id number] Implanted:Qty: 1 on 02/23/2019 by Jonas Valentino MD at OR [facility] Right: Eye [employer] 05/26/2023 [id number] / [id number] / [id number] Lens Intraoc 24.5 - [id number] - [id number] Implanted:Qty: 1 on 03/02/2019 by Jonas Valentino MD at OR [facility] Left: Eye [employer]OM[employer] 08/26/2023 [id number] / [id number] / [id number] Envelope Antibacterial Tyrx - [id number] Implanted:Qty: 1 on 11/18/2022 by Nora Antonio DO at OR [facility] [employer] : CRM [id number] 08/09/2023 CMR [id number] / / [id number] documented as of this encounter Advance Directives * Full Code (Latest Code Status on File) Date Activated Date Inactivated Comments 04/05/2021 7:37 AM 04/05/2021 4:11 PM This order r eflects the patients wishes and were consensually agreed upon. Question Answer Comments Discussion of Advance Directives occurred with: Not Discussed Care Teams Landscape Management Technician Relationship Specialty Start Date End Date Dylan Barros MD [address] [place] [address] PCP - General Family Medicine 11/07/23 documented as of this encounter
--- OUTSIDE RECORDS SUMMARY | 2024-09-24 19:27 | External Medical Summary | Summary of Care ---
Author Name Unknown Organization [facility] Address [address] [place] [address] Phone [phone] Care Team Providers Care Embosser Apprentice Name Role Phone Dylan Barros MD Primary Care Provider [phone]- [phone] Reason for Visit * Reason Comments eRx-Medication Refill Encounter Details Date Type Department Care Team (Late st Contact Info) Description 07/30/2024 Refill Cardiology, [facility] [address] [place] [address] Dai Scott PA-C [address] [facility] [place] [address] Chronic coronary artery disease; HTN, goal below 130/80 Allergies Active Allergy Reactions Criticality Noted Date Comments Albuterol High 04/04/2022 Other reaction(s): racing heart Citalopram 04/04/2022 Other reaction(s): Unknown Sulfa Antibiotics Hives Medium 07/07/2000 documented as of this encounter (statuses as of 08/05/2024) Medications Medication Sig Dispensed Refills Start Date [...] ER 20 MEQ Oral Tablet Extended ReleaseIndication s:HTN, goal below 130/80,Paroxysmal atrial fibrillation (HCC) Take 1 Tablet by mouth in the morning and 1 Tablet before bedtime. 180 Tablet 3 03/10/2024 Active KickSport Verio w/Device Kit Use up to 4 times a day E11.9 1 Kit 03/23/2024 Active predniSONE 10 MG Oral Tablet (Deltasone)Indica tions:PMR (polymyalgia rheumatica) (HCC) Take 1 Tablet by mouth in the morning. 90 Tablet 04/09/2024 Active predniSONE 5 MG Oral Tablet (Deltasone)Indica tions:PMR (polymyalgia rheumatica) (HCC) Take 1 Tablet by mouth in the morning. 90 Tablet 04/09/2024 Active Additional Information Patient not taking.Reported on 06/14/2024 predniSONE 2.5 MG Oral Tablet (Deltasone)Indica tions:PMR (polymyalgia rheumatica) (HCC) Take 1 Tablet by [...] 05/10/2024 Active Eliquis 5 MG Oral Tablet (Apixaban)Indicat ions:Paroxysmal atrial fibrillation (HCC) TAKE 1 TABLET BY MOUTH EVERY MORNING AND 1 TABLET BEFORE BEDTIME 180 Tablet 3 05/31/2024 Active predniSONE 1 MG Oral Tablet (Deltasone)Indica tions:PMR (polymyalgia rheumatica) (HCC) Take 4 Tablets by mouth in the morning. 360 Tablet 06/03/2024 09/01/20 24 Active Additional Information Patient not taking.Reported on 06/14/2024 traZODone HCl 50 MG Oral Tablet (Desyrel)Indicati ons:Insomnia, unspecified type Take 0.5 Tablets by mouth at bedtime. 90 Tablet 1 06/14/2024 Active Metoprolol Succinate ER 25 MG Oral Tablet Extended Release 24 Hour (toPROL XL)Indications:Pa roxysmal atrial fibrillation (HCC) Take 1 Tablet by mouth in the morning. This is in addition to the 50 mg tablet daily. 90 Tablet 3 06/15/2024 Active Levothyroxine Sodium 50 MCG Oral Tablet (Levoxyl)Indicati ons:Hypothyroidis m, unspecified type TAKE 1&1/2 TABLETS BY MOUTH DAILY ALTERNATING WITH 1 TABLET DAILY (at least 30 min prior to breakfast or other meds) 135 Tablet 3 06/16/2024 Active metFORMIN HCl ER 500 MG Oral Tablet Extended Release 24 Hour (Glucophage XR)Indications:Ty pe 2 diabetes mellitus with hemoglobin A1c goal of less than 7.0% ([facility]) Take 1 Tablet by mouth daily. 90 Tablet 3 07/10/2024 Active OneTouch Ultra Test In Vitro Strip (Glucose Blood)Indications :Type 2 diabetes mellitus with hemoglobin A1c goal of less than 7.0% ([facility]) Use to check blood sugars once per day Dx E11.9 100 Strip 5 07/13/2024 Active hydroCHLOROthiazi de 25 MG Oral Tablet (Hydrodiuril)Georgina cations:Chronic coronary artery disease,HTN, goal below 130/80 TAKE 1 TABLET BY MOUTH EVERY MORNING 90 Tablet 08/02/2024 Active hydroCHLOROthiazi de 25 MG Oral Tablet (Hydrodiuril)[place] cations:Chronic coronary artery disease,HTN, goal below 130/80 Take 1 Tablet by mouth in the morning. 90 Tablet 3 10/21/2023 08/02/20 24 Discontinued documented as of this encounter (statuses as of 08/05/2024) Active Problems Problem Noted Date Diagnosed Date [...] AHI was 17.1 DME: [facility], [place] Titration study 04/27/12 set pressure of 8 cm HTN, goal below 130/80 01/09/2011 Chronic coronary artery disease 09/15/2010 Overview: Cath 2006 - 30% mid LAD stenosis Dyslipidemia, goal LDL below 70 09/15/2010 documented as of this encounter (statuses as of 08/05/2024) Resolved Problems Problem Noted Date Diagnosed Date Resolved Date Obstructive sleep apnea 11/28/201101/26 Overview: AHI 8..2 in April 2008 documented as of this encounter (statuses as of 08/05/2024) Immunizations Name Administration Dates Next Due COVID-19 mRNA, LNP-s, No Pre serve, 2-Dose Series (Moderna) 12/24/2020,11/19/2020 COVID-19, mRNA, LNP-s, PF, B ooster, 100mcg/0.5mg (Moderna) 08/18/2021 Covid-19, Mrna, Lnp-s, Pf, B ivalent, 30 Mcg, IM, 12 yrs and above ([employer]) 08/01/2022 DT - Diptheria/Tetanus (PEDS) 06/06/2005 Pneumococcal [...] encounter Miscellaneous Notes * Telephone Encounter - Ran, Gerard Singleton - 08/05/2024 6:11 AM EDT Received message from [facility] regarding patient needing an appointment. Patient was notified. Successfully contacted patient and provided [facility] message. * Telephone Encounter - Leticia Magaña RPh - 08/02/2024 8:44 AM EDTSigned Prescriptions: Disp Refills hydroCHLOROthiazide 25 MG Oral Tablet (Hyd*90 Tab*0 Sig: TAKE 1 TABLET BY MOUTH EVERY MORNING Authorizing Provider: DAI SCOTT Ordering User: LETICIA MAGAÑA * Telephone Encounter - Leticia Magaña RPh - 08/02/2024 8:40 AM EDT Please contact patient so that an appointment can be scheduled with her CARDIOLOGY provider. Refillauthorized to hold patient over in the mean time. Per last OV, return in 3 months (07/28/24) Last Visit: 04/27/2024 (in office), Visit date not found (telemedicine) Next Visit: Visit date not found Leticia Arredondo, PharmD Clinical Pharmacist [facility] 08/02/2024, 8:42 AM documented in this encounter Plan of Treatment Upcoming Encounters Date Type Department Care Team (Late st Contact Info) Description 09/06/2024 4:20 PM EST Telemedicine Rheumatology, [place] [address] [place] [address] Tessa Duque DO [address] [place] [address] 09/21/2024 8:00 AM EST Office Visit [address] [address] Dylan Barros MD [address] [facility] [place] [place] [address] Scheduled Procedures Name Priority Associated Diagnoses [...] this encounter Medical Devices Implanted Type Area Conditioning Machine Operator Device Identifier Shelf Expiration Date Model / Serial / Lot Lead Pace Selectsecure [id number] - [id number] Implanted:Qty: 1 on 11/18/2022 by Nora Antonio DO at OR [facility] Lead Left: Heart [employer] : [facility] 10/18/2024 [id number] / / Description:RV LBBB Lead Novus Bipolar 52cm - [id number] - [id number] Implanted:Qty: 1 on 11/18/2022 by Nora Antonio DO at OR [facility] Lead Left: Heart [employer] : [facility] 09/23/2024 5076-52 / [id number] / Description:RA Pacemaker [place] Xt Dr Banks Wrls - [id number] - [id number] Implanted:Qty: 1 on 11/18/2022 by Nora Antonio DO at OR [facility] Pacemaker Left: Chest [employer] 04/09/2024 [id number] / [id number] / Lens Intraoc 26.5 - [id number] - [id number] Implanted:Qty: 1 on 02/23/2019 by Jonas Valentino MD at OR [facility] Right: Eye [employer]OM[employer] 05/26/2023 [id number] / [id number] / [id number] Lens Intraoc 24.5 - [id number] - [id number] Implanted:Qty: 1 on 03/02/2019 by Jonas Valentino MD at OR [facility] Left: Eye [employer]CH [employer]OMB 08/26/2023 [id number] / [id number] / [id number] Envelope Antibacterial Tyrx - [id number] Implanted:Qty: 1 on 11/18/2022 by Nora Antonio DO at OR [facility] [employer] : CRM [id number] 08/09/2023 [facility] M6122 / / [id number] documented as of this encounter Visit Diagnoses Diagnosis Chronic coronary artery disease Coronary atherosclerosis of unspecified type of vessel, [place] or graft HTN, goal below 130/80 Unspecified essential hypertension documented in this encounter Advance Directives * Full Code (Latest Code Status on File) Date Activated Date Inactivated Comments 04/05/2021 7:37 AM 04/05/2021 4:11 PM This order r eflects the patients wishes and were consensually agreed upon. Question Answer Comments Discussion of Advance Directives occurred with: Not Discussed Care Teams Embosser Apprentice Relationship Specialty Start Date End Date Dylan Barros MD [address], [place] [id number] PCP - General Family Medicine 11/07/23 documented as of this encounter
--- OUTSIDE RECORDS SUMMARY | 2024-09-24 19:27 | External Medical Summary | Summary of Care ---
Author Name Unknown Organization [facility] Address [address] [place] [address] Phone [phone] Care Team Providers Care Research Quality Assurance Analyst Name Role Phone Dylan Barros MD Primary Care Provider +1- [phone] Encounter Details Date Type Department Care Team (Late st Contact Info) Description 07/28/2024 2:20 PM EDT Telemedicine Sleep Disorders Ctr [facility] [address] [place] [phone] Riddhi Cook DO [address] [facility] [place] [address] INEZ on CPAP* Allergies Active Allergy Reactions Criticality Noted Date Comments Albuterol High 04/04/2022 Other reaction(s): racing heart Citalopram 04/04/2022 Other reaction(s): Unknown Sulfa Antibiotics Hives Medium 07/07/2000 documented as of this encounter (statuses as of 07/28/2024) Medications Medication Sig Dispensed Refills Start Date [...] before bedtime. 180 Tablet 3 03/10/2024 Active Sphere FluidicsTouch Verio w/Device Kit Use up to 4 [...] A1c goal of less than 7.0% ([facility]) Take 1 Tablet by mouth daily. 90 Tablet 3 07/10/2024 Active Sphere FluidicsTouch Ultra Test In Vitro Strip (Glucose Blood)Indications:T ype 2 diabetes mellitus with hemoglobin A1c goal of less than 7.0% ([facility]) Use to check blood sugars once per day Dx E11.9 100 Strip 5 07/13/2024 Active documented as of this encounter (statuses as of 07/28/2024) Active Problems Problem Noted Date Diagnosed Date [...] AHI was 17.1 DME: [facility], [place] Titration study 04/27/12 set pressure of 8 cm HTN, goal below 130/80 01/09/2011 Chronic coronary artery disease 09/15/2010 Overview: Cath 2006 - 30% mid LAD stenosis Dyslipidemia, goal LDL below 70 09/15/2010 documented as of this encounter (statuses as of 07/28/2024) Resolved Problems Problem Noted Date Diagnosed Date Resolved Date Obstructive sleep apnea 11/28/201101/26 Overview: AHI 8..2 in April 2008 documented as of this encounter (statuses as of 07/28/2024) Immunizations Name Administration Dates Next Due COVID-19 [...] on file documented as of this encounter Patient Instructions * Patient Instructions* Riddhi Cook, - 07/28/2024 2:47 PM EDT For mouth leak with nasal interface: 1) Chin strap -- wraps around the head to hold the chin up 2) Mouth tape -- a strip of tape vertically across the center of your lips is often sufficient 3) SomnoSeal -- a flexible piece of silicone to sit inside the lips to block air leak ([email or web address]) 4) Changing to a full-face or lower-profile/hybrid mask which allows for mouth- breathing with CPAP use documented in this encounter Progress Notes * Riddhi Cook DO - 07/28/2024 2:38 PM EDT Sleep Medicine Follow-Up Patient location: HOME. I was in a hospital or clinic location. After connecting through televideo,patient was verified with two unique identifiers. Patient (or authorized legal digital sales representative) was then informed that this was a Telemedicine visit and being conducted confidentially over secure lines. Methods to assure confidentiality were taken. Patient acknowledged consent and understanding of pr ivacy and security of the Telemedicine visit. The patient agreed to participate. Time dedicated to today's appointment: 32 minutes 26 min on tele-video call, plus chart review and documentation HISTORY: Ángel Kim is a 73 year old female with Hx HTN, PAF, DM, hypothyroidism, for follow up of INEZ. PSG 04/2008: AHI 8 PSG 02/05/2012 (weight 174 lbs): AHI 17, SpO2 maciej 79%, time <90% 26 min PAP titration 04/17/2012: CPAP 8 cwp, no residual hypoxemia Nocturnal oximetry 06/27/2020 on CPAP 10-15 cwp with RA (weight 209 lbs): SpO2 maciej 86%, time <89% 0.9 min, AHI 5.6. Last seen in Sleep Medicine 09/11/2022 by Nohemy MIGUEL. Using CPAP regularly with benefit. Using CPAP 10-15 cmH2O. She did receive the recall replacement device through the recall (DS). Overall doing well with the CPAP. She has been tired, in the setting of metoprolol dose increase. She has been resting, sometimes napping, in the afternoon, with CPAP on, for an hour, which is restful and does not usually make it more difficult to get to sleep at night. Subjective PAP adherence: excellent Snoring on PAP: not that she has been told ( has not mentioned) Interface: nasal mask Occasional mouth leak (a few times that she has awakened with dry mouth) Dry nose or dry mouth: occasional dry mouth Use humidifier? yes She coughs in the morning for 20-45 minutes, with eyes running, started prior to CPAP, unchanged with CPAP use. Had initially been attributed to reflux, but reflux medication did not help. She saw anallergist and had allergy testing; was not found to be allergic to anything. CPAP Compliance: Report date: 07/26/24 % total days used: 83.3% (note that pt reports she uses CPAP every night, suspects this is under-reported.) % days used > 4 hours: 86.7% Average hours per day used: 10 h 4 m Large leak: no AHI: 4.9 /hr Mean pressure: 12.4 cmH2O 90%ile pressure: 15 cmH2O Pressure settin-15 cmH2O Equipment: DME Provider is [facility]. Patient would like to change to [facility] due to change in insurance network. Uses a [email or web address]. Patient Active Problem List Diagnosis Chronic coronary artery disease Dyslipidemia, goal LDL below 70 HTN, goal below 130/80 INEZ on CPAP Hypothyroidism LBBB (left bundle branch block) Paroxysmal atrial fibrillation ([facility]) Type 2 diabetes mellitus with hemoglobin A1c goal of less than 7.0% ([facility]) Microcytic anemia Bradycardia, sinus Multiple lung nodules JEFF (generalized anxiety disorder) Panic disorder without agoraphobia SSS (sick sinus syndrome) ([facility]) Recurrent major depressive disorder, in partial remission ([facility]) Cardiac pacemaker in situ PMR (polymyalgia rheumatica) ([facility]) Current Outpatient Medications Medication Sig Dispense Refill Sphere FluidicsTouch Ultra Test In Vitro Strip (Glucose Blood) Use to check blood sugars once per day Dx E11.9 100 Strip 5 metFORMIN HCl ER 500 MG Oral Tablet Extended Release 24 Hour (Glucophage XR) Take 1 Tablet by mouthdaily. 90 Tablet 3 Levothyroxine Sodium 50 MCG Oral Tablet (Levoxyl) TAKE 1&1/2 TABLETS BY MOUTH DAILY ALTERNATINGWITH 1 TABLET DAILY (at least 30 min prior to breakfast or other meds) 135 Tablet 3 Metoprolol Succinate ER 25 MG Oral Tablet Extended Release 24 Hour (toPROL XL) Take 1 Tablet by mouth in the morning. This is in addition to the 50 mg tablet daily. 90 Tablet 3 traZODone HCl 50 MG Oral Tablet (Desyrel) Take 0.5 Tablets by mouth at bedtime. 90 Tablet 1 predniSONE 1 MG Oral Tablet (Deltasone) Take 4 Tablets by mouth in the morning. (Patient not taking: Reported on 06/14/2024) 360 Tablet 0 Eliquis 5 MG Oral Tablet (Apixaban) TAKE 1 TABLET BY MOUTH EVERY MORNING AND 1 TABLET BEFORE BEDTIME 180 Tablet 3 Atorvastatin Calcium 20 MG Oral Tablet (Lipitor) Take 1 Tablet by mouth in the morning. 90 Tablet 3 Metoprolol Succinate ER 50 MG Oral Tablet Extended Release 24 Hour (toPROL XL) Take 1 Tablet by mouth every evening. 90 Tablet 3 predniSONE 10 MG Oral Tablet (Deltasone) Take 1 Tablet by mouth in the morning. 90 Tablet 0 predniSONE 2.5 MG Oral Tablet (Deltasone) Take 1 Tablet by mouth in the morning. (Patient not taking: Reported on 06/14/2024) 90 Tablet 0 predniSONE 5 MG Oral Tablet (Deltasone) Take 1 Tablet by mouth in the morning. (Patient not taking:Reported on 06/14/2024) 90 Tablet 0 OneTouch Verio w/Device Kit Use up to 4 times a day E11.9 1 Kit 0 Potassium Chloride Tish ER 20 MEQ Oral Tablet Extended Release Take 1 Tablet by mouth in the morning and 1 Tablet before bedtime. 180 Tablet 3 Empagliflozin 10 MG Oral Tablet (Jardiance) Take 1 Tablet by mouth in the morning. 90 Tablet 3 Sertraline HCl 100 MG Oral Tablet (Zoloft) TAKE 1 & 1/2 TABLETS BY MOUTH DAILY IN THE MORNING 135 Tablet 3 hydroCHLOROthiazide 25 MG Oral Tablet (Hydrodiuril) Take 1 Tablet by mouth in the morning. 90 Tablet 3 Docusate Sodium 100 MG Oral Capsule Take 1 Capsule by mouth every evening. CPAP every night at bedtime. LORazepam (ATIVAN) 1 MG Tablet One tablet every 8 hours as needed VITAMIN D3 1000 UNITS PO TABS 2 TABLETS DAILY NITROGLYCERIN 0.[address] under the tongue. 25 Tab 11 ASPIRIN 81 MG PO TABS Take by mouth at bedtime. MULTIVITAMINS PO TABS 1 tablet daily No current facility-administered medications for this visit. PHYSICAL EXAM: Recent weight 211 lbs BMI Readings from Last 1 Encounters: 06/14/24 37.54 kg/m PE limited due to telemedicine. Patient does not appear to be in distress. No rash on visible skin on face. Breathing does not appear to be labored. No audible stridor. Speech is clear and appropriate. Appropriate affect. ASSESSMENT/PLAN: Obstructive sleep apnea - excellent adherence; encourage continued use of CPAP with all sleep - good efficacy of therapy; adjust CPAP to 12-17 cwp due to increased fatigue with residual AHI toward upper end of normal. (Note: suspect increased dose of beta ludy contributes to fatigue.) - troubleshoot modem - replacement device ordered. - DME: [facility] - Routine cleaning and change of supplies as needed. - Continue to avoid driving when feeling sleepy/drowsy. Follow-up with Sleep Medicine in 3 months. Riddhi Cook DO documented in this encounter Plan of Treatment Upcoming Encounters Date Type Department Care Team (Late st Contact Info) Description 09/06/2024 4:20 PM EST Telemedicine Rheumatology, [place] [address] [place] [address] Tessa Duque DO [address] [place] [address] 09/21/2024 8:00 AM EST Office Visit [facility] [address] [place] [address] Dylan Barros MD [address], [place] [phone] Scheduled Procedures Name Priority Associated Diagnoses Date/Ti [...] this encounter Medical Devices Implanted Type Area Chief Radiation Therapist Device Identifier Shelf Expiration Date Model / Serial / Lot Lead Pace Selectsecure 3830-69 - [id number] Implanted:Qty: 1 on 11/18/2022 by Nora Antonio DO at OR [facility] Lead Left: Heart [employer] : CAR 10/18/2024 [id number] / / Description:RV LBBB Lead Novus Bipolar 52cm - [id number] - [id number] Implanted:Qty: 1 on 11/18/2022 by Nora Antonio DO at OR [facility] Lead Left: Heart [employer] : CAR 09/23/2024 5076-52 / [id number] / Description:RA Pacemaker [place] Xt Dr Jocelyn Wrls - [id number] - [id number] Implanted:Qty: 1 on 11/18/2022 by Nora Antonio DO at OR [facility] Pacemaker Left: Chest [employer] 04/09/2024 [id number] / [id number] / Lens Intraoc 26.5 - [id number] - [id number] Implanted:Qty: 1 on 02/23/2019 by Jonas Valentino MD at OR [facility] Right: Eye [employer]USCH [employer] LOMB 05/26/2023 [id number] / [id number] / [id number] Lens Intraoc 24.5 - [id number] - [id number] Implanted:Qty: 1 on 03/02/2019 by Jonas Valentino MD at OR [facility] Left: Eye BAUSCH & LOMB 08/26/2023 [id number] / [id number] / [id number] Envelope Antibacterial Tyrx - [id number] Implanted:Qty: 1 on 11/18/2022 by Nora Antonio DO at OR [facility] [employer] : CRM [id number] 08/09/2023 CMR M6122 / / [id number] documented as of this encounter Visit Diagnoses Diagnosis INEZ on CPAP- Primary Obstructive sleep apnea (adult) (pediatric) documented in this encounter Advance Directives * Full Code (Latest Code Status on File) Date Activated Date Inactivated Comments 04/05/2021 7:37 AM 04/05/2021 4:11 PM This order r eflects the patients wishes and were consensually agreed upon. Question Answer Comments Discussion of Advance Directives occurred with: Not Discussed Care Teams Research Quality Assurance Analyst Relationship Specialty Start Date End Date Dylan Barros MD [address] [facility] [place] [id number] PCP - General Family Medicine 11/07/23 documented as of this encounter
--- OUTSIDE RECORDS SUMMARY | 2024-09-24 19:27 | External Medical Summary | Summary of Care ---
Author Name Unknown Organization [facility] Address [address] [place] [address] Phone [phone] Care Team Providers Care Coal Cutter Name Role Phone Dylan Barros MD Primary Care Provider +1- [phone] Reason for Visit * Reason Onset Date Comments Pacemaker Clinic 08/19/2024 Remote transmis jamie Encounter Details Date Type Department Care Team (Late st Contact Info) Description 08/19/2024 Telephone Cardiology, [facility] [address] [place] [address] [place], Pacer Clinic [facility] [address] [place] [address] Pacemaker Clinic (Remote transmission ) Allergies Active [...] before bedtime. 180 Tablet 3 03/10/2024 Active [employer] w/Device Kit Use up to 4 times [...] goal of less than 7.0% ([facility]) Take 1 Tablet by mouth daily. 90 Tablet 3 07/10/2024 Active OneTouch Ultra Test In Vitro Strip (Glucose Blood)Indications:T ype 2 diabetes mellitus with hemoglobin A1c goal of less than 7.0% ([facility]) Use to check blood sugars once per [...] AHI was 17.1 DME: [facility], [place] Titration study 04/27/12 set pressure of 8 [...] 30 Mcg, IM, 12 yrs and above ([place]) 08/01/2022 DT - Diptheria/Tetanus (PEDS) 06/06/2005 Pneumococcal [...] with or suggestive of Atrial Fibrillation AT/AF [place]: 1.5% Total number of events: 8 Ongoing episode from 08/19/2024 at 0250 Additional Notes: Eliquis Appropriate AT/AF Therapy: Unsuccessful Stored EGMs are consistent with or suggestive of AT/AF with unsuccessful therapy Total episodes: 8 AT [place]: 1.5% Number of ATP therapy: 2 documented in this encounter Plan of Treatment Upcoming Encounters Date Type Department Care Team (Late st Contact Info) Description 09/06/2024 4:20 PM EST Telemedicine Rheumatology, [place] [address] [place] [address] Tessa Duque, [address] [place] [address] 09/21/2024 8:00 AM EST Office Visit [facility] [address] [place] [address] Dylan Barros MD [address] [place] [address] 12/14/2024 9:30 AM EST Office Visit Cardiology, [facility] [address] [place] [address] Nicole Severino, TRAVIS [address] [place] [address] 04/01/2025 11:20 AM EDT Office Visit Sleep Disorders Ctr [facility] [address] [place] [phone] Riddhi Cook DO [address] [place] [address] Scheduled Procedures Name Priority Associated Diagnoses Date/Ti [...] this encounter Medical Devices Implanted Type Area Head Holder Device Identifier Shelf Expiration Date Model / Serial / Lot Lead Pace Selectsecure 3830-69 - [id number] Implanted:Qty: 1 on 11/18/2022 by Nora Antonio DO at OR [facility] Lead Left: Heart [employer] : CRM 10/18/2024 [id number] / / Description:RV LBBB Lead Novus Bipolar 52cm - [id number] - [id number] Implanted:Qty: 1 on 11/18/2022 by Nora Antonio DO at OR [facility] Lead Left: Heart [employer] : CRM 09/23/2024 5076-52 / [id number] / Description:RA Pacemaker [place] Xt Dr Banks Wrls - [id number] - [id number] Implanted:Qty: 1 on 11/18/2022 by Nora Antonio DO at OR [facility] Pacemaker Left: Chest [employer] 04/09/2024 [id number] / [id number] / Lens Intraoc 26.5 - [id number] - [id number] Implanted:Qty: 1 on 02/23/2019 by Jonas Valentino MD at OR [facility] Right: Eye BAUSCH & LOMB 05/26/2023 [id number] / [id number] / [id number] Lens Intraoc 24.5 - [id number] - [id number] Implanted:Qty: 1 on 03/02/2019 by Jonas Valentino MD at OR [facility] Left: Eye BAUSCH & LOMB 08/26/2023 [id number] / [id number] / [id number] Envelope Antibacterial Tyrx - [id number] Implanted:Qty: 1 on 11/18/2022 by Nora Antonio DO at OR [facility] [employer] : CRM [id number] 08/09/2023 CMR M6122 / / [id number] documented as of this encounter Advance Directives * Full Code (Latest Code Status on File) Date Activated Date Inactivated Comments 04/05/2021 7:37 AM 04/05/2021 4:11 PM This order r eflects the patients wishes and were consensually agreed upon. Question Answer Comments Discussion of Advance Directives occurred with: Not Discussed Care Teams Coal Cutter Relationship Specialty Start Date End Date Dylan Barros MD [address] [place] [address] PCP - General Family Medicine 11/07/23 documented as of this encounter
--- OUTSIDE RECORDS SUMMARY | 2024-09-24 19:27 | External Medical Summary | Summary of Care ---
Author Name Unknown Organization [facility] Address [address] [place] [address] Phone [phone] Care Team Providers Care Hose Wrapper Name Role Phone Dylan Barros MD Primary Care Provider +1- [phone] Reason for Visit * Reason Onset Date Comments Pacemaker Clinic 08/19/2024 Remote transmis jamie Encounter Details Date Type Department Care Team (Late st Contact Info) Description 08/19/2024 Telephone Cardiology, [facility] [address] [place] [address] [place], Pacer Clinic [facility] [address] [place] [address] Pacemaker Clinic (Remote transmission ) Allergies Active [...] before bedtime. 180 Tablet 3 03/10/2024 Active [employer] w/Device Kit Use up to 4 times [...] AHI was 17.1 DME: [facility], [place] Titration study 04/27/12 set pressure of 8 [...] 30 Mcg, IM, 12 yrs and above (500px) 08/01/2022 DT - Diptheria/Tetanus (PEDS) 06/06/2005 Pneumococcal [...] with or suggestive of Atrial Fibrillation AT/AF [place]: 1.5% Total number of events: 8 Ongoing episode from 08/19/2024 at 0250 Additional Notes: Eliquis Appropriate AT/AF Therapy: Unsuccessful Stored EGMs are consistent with or suggestive of AT/AF with unsuccessful therapy Total episodes: 8 AT [place]: 1.5% Number of ATP therapy: 2 documented in this encounter Plan of Treatment Upcoming Encounters Date Type Department Care Team (Late st Contact Info) Description 09/06/2024 4:20 PM EST Telemedicine Rheumatology, [place] [address] [place] [address] Tessa Duque, [address] [place] [address] 09/21/2024 8:00 AM EST Office Visit [facility] [address] [place] [phone] Dylan Barros MD [address] [place] [address] 12/14/2024 9:30 AM EST Office Visit Cardiology, [facility] [place] [address] Nicole Severino PA-C [address] [place] [address] 04/01/2025 11:20 AM EDT [facility] [address] [place] [phone] Riddhi CookareDO lianna [address] [place] [address] Scheduled Procedures Name Priority Associated Diagnoses Date/Ti [...] this encounter Medical Devices Implanted Type Area Womens Volleyball Coach Device Identifier Shelf Expiration Date Model / Serial / Lot Lead Pace Selectsecure 3830-69 - [id number] Implanted:Qty: 1 on 11/18/2022 by Nora Antonio DO at OR [facility] Lead Left: Heart [employer] : CRM 10/18/2024 [id number] / / Description:RV LBBB Lead Novus Bipolar 52cm - [id number] - [id number] Implanted:Qty: 1 on 11/18/2022 by Nora Antonio DO at OR [facility] Lead Left: Heart [employer] : CRM 09/23/2024 5076-52 / [id number] / Description:RA Pacemaker [place] Xt Dr Banks ls - [id number] - [id number] Implanted:Qty: 1 on 11/18/2022 by Nora Antonio DO at OR [facility] Pacemaker Left: Chest [employer] 04/09/2024 [id number] / [id number] / Lens Intraoc 26.5 - [id number] - [id number] Implanted:Qty: 1 on 02/23/2019 by Jonas Valentino MD at OR [facility] Right: Eye BAUSCH & LOMB 05/26/2023 [id number] / [id number] Lens Intraoc 24.5 - [id number] - [id number] Implanted:Qty: 1 on 03/02/2019 by Jonas Valentino MD at OR [facility] Left: Eye BAUSCH & LOMB 08/26/2023 [id number] / [id number] / [id number] Envelope Antibacterial Tyrx - [id number] Implanted:Qty: 1 on 11/18/2022 by Nora Antonio DO at OR [facility] [employer] : CRM [id number] 08/09/2023 CMR M6122 / / [id number] documented as of this encounter Advance Directives * Full Code (Latest Code Status on File) Date Activated Date Inactivated Comments 04/05/2021 7:37 AM 04/05/2021 4:11 PM This order r eflects the patients wishes and were consensually agreed upon. Question Answer Comments Discussion of Advance Directives occurred with: Not Discussed Care Teams Hose Wrapper Relationship Specialty Start Date End Date Dylan Barros MD [address] [facility] [place] [address] PCP - General Family Medicine 11/07/23 documented as of this encounter
--- OUTSIDE RECORDS SUMMARY | 2024-09-24 19:27 | External Medical Summary | Summary of Care ---
Author Name Unknown Organization [facility] Address [address] [place] [address] Phone [phone] Care Team Providers Care Paper Cone Grader Name Role Phone Dylan Barros MD Primary Care Provider +1- [phone] Reason for Visit * Reason Comments Insect Bite Encounter Details Date Type Department Care Team (Late st Contact Info) Description 08/12/2024 5:45 PM EDT Convenient Care Visit [facility] [address] [place] [address] Dimitri Weaver CRNP [address] [place] [address] Skin infection* Allergies Active Allergy Reactions Criticality [...] before bedtime. 180 Tablet 3 03/10/2024 Active [employer] [place] [employer] w/Device Kit Use up to 4 times [...] 08/12/2024 traZODone HCl 50 MG Oral Tablet (Desyrel)Indicati [...] than 7.0% ([facility]) Take 1 Tablet by mouth daily. 90 Tablet 3 07/10/2024 Active OneTouch Ultra Test In Vitro Strip (Glucose Blood)Indications :Type 2 diabetes mellitus with hemoglobin A1c goal of less than 7.0% ([facility]) Use to check blood sugars once per day Dx E11.9 100 Strip 5 07/13/2024 Active hydroCHLOROthiazi de 25 MG Oral Tablet (Hydrodiuril)Georgina cations:Chronic coronary artery disease,HTN, goal below 130/80 TAKE 1 TABLET BY MOUTH EVERY MORNING 90 Tablet 08/02/2024 Active Doxycycline Hyclate 100 MG Oral CapsuleIndication s:Skin infection Take 1 Capsule by mouth in the morning and 1 Capsule before bedtime. Do all this for 10 days. Until gone.. 20 Capsule 08/12/2024 08/22/20 24 Active Doxycycline Hyclate 100 MG Oral CapsuleIndication s:Skin infection Take 1 Capsule by mouth in the morning and 1 Capsule before bedtime. Do all this for 10 days. Until gone.. 20 Capsule 08/12/2024 08/12/20 Discontinued documented as of this encounter (statuses [...] 02/05/12 AHI was 17.1 DME: [facility] Titration study 04/27/12 set pressure of 8 [...] 30 Mcg, IM, 12 yrs and above ([employer]) 08/01/2022 DT - Diptheria/Tetanus (PEDS) 06/06/2005 Pneumococcal [...] documented in this encounter Progress Notes * Dimitri Weaver CRNP - 08/12/2024 6:24 PM EDT [facility] Basic Exam Subjective Ángel Kim is a 73 year old female that presents to the [facility] with a tickbite on the left [...] Diagnosis Date Anxiety Arthritis osto Atrial fibrillation ([facility]) Cataract surgery Depression Diabetes mellitus ([facility]) GERD (gastroesophageal reflux disease) Hearing loss Hypertension Left bundle branch block Obesity Osteoporosis SSS (sick sinus syndrome) ([facility]) Thyroid disease Varicella disease as a child Patient Active Problem List Diagnosis Chronic coronary artery disease Dyslipidemia, goal LDL below 70 HTN, goal below 130/80 INEZ on CPAP Hypothyroidism LBBB (left bundle branch block) Paroxysmal atrial fibrillation ([facility]) Type 2 diabetes mellitus with hemoglobin A1c goal of less than 7.0% ([facility]) Microcytic anemia Bradycardia, sinus Multiple lung nodules JEFF (generalized anxiety disorder) Panic disorder without agoraphobia SSS (sick sinus syndrome) ([facility]) Recurrent major depressive disorder, in partial remission ([facility]) Cardiac pacemaker in situ PMR (polymyalgia rheumatica) ([facility]) BP Readings from Last 3 Encounters: 08/12/24 [...] for today's visit. documented in this encounter Miscellaneous Notes * Addendum Note - Dimitri Weaver CRNP - 08/12/2024 7:48 PM EDTAddended by: DIMITRI WEAVER on: 08/12/2024 07:48 PM Modules accepted: Orders documented in this encounter Plan of Treatment Upcoming Encounters Date Type Department Care Team (Late st Contact Info) Description 09/06/2024 4:20 PM EST Telemedicine Rheumatology, [place] [address] [place] [address] Tessa Duque, [address] [place] [address] 09/21/2024 8:00 AM EST Office Visit [facility] [address] [place] [address] Dylan Barros MD [address] [place] [address] 12/14/2024 9:30 AM EST Office Visit Cardiology, [facility] [address] [place] [address] Nicole Severino PA-C [address] [place] [address] Scheduled Procedures Name Priority Associated Diagnoses Date/Ti [...] this encounter Medical Devices Implanted Type Area Computational Chemist Device Identifier Shelf Expiration Date Model / Serial / Lot Lead Pace Selectsecure 3830-69 - [id number] Implanted:Qty: 1 on 11/18/2022 by Nora Antonio DO at OR [facility] Lead Left: Heart [employer] : CRM 10/18/2024 [id number] / / Description:RV LBBB Lead Novus Bipolar 52cm - [id number] - [id number] Implanted:Qty: 1 on 11/18/2022 by Nora Antonio DO at OR [facility] Lead Left: Heart [employer] : CRM 09/23/2024 5076-52 / [id number] / Description:RA Pacemaker [place] Xt Dr Banks Wrls - [id number] - [id number] Implanted:Qty: 1 on 11/18/2022 by Nora Antonio DO at OR [facility] Pacemaker Left: Chest [employer] 04/09/2024 [id number] / [id number] / Lens Intraoc 26.5 - [id number] - [id number] Implanted:Qty: 1 on 02/23/2019 by Jonas Valentino MD at OR [facility] Right: Eye BAUSCH & LOMB 05/26/2023 [id number] / [id number] / [id number] Lens Intraoc 24.5 - [id number] - [id number] Implanted:Qty: 1 on 03/02/2019 by Jonas Valentino MD at OR [facility] Left: Eye BAUSCH & LOMB 08/26/2023 [id number] / [id number] / [id number] Envelope Antibacterial Tyrx - [id number] Implanted:Qty: 1 on 11/18/2022 by Nora Antonio DO at OR [facility] [employer] : CRM [id number] 08/09/2023 [facility] M6122 / / [id number] documented as of this encounter Visit Diagnoses [...] Directives occurred with: Not Discussed Care Teams Paper Cone Grader Relationship Specialty Start Date End Date Dylan Barros MD [address] [place] [facility] [place] [address] PCP - General Family Medicine 11/07/23 documented as of this encounter
--- OUTSIDE RECORDS SUMMARY | 2024-09-24 19:27 | External Medical Summary | Summary of Care ---
Author Name Unknown Organization [facility] Address [address] [place] [address] Phone [phone] Care Team Providers Care Security Specialist Name Role Phone Dylan Barros MD Primary Care Provider +1- [phone] Reason for Visit * Reason Onset Date Comments Pacemaker Clinic 08/19/2024 Remote transmis jamie Encounter Details Date Type Department Care Team (Late st Contact Info) Description 08/19/2024 Telephone Cardiology, [facility] [address] [facility] [address] [place], Pacer Clinic [facility] [address] [place] [address] Pacemaker Clinic (Remote transmission ) Allergies Active [...] before bedtime. 180 Tablet 3 03/10/2024 Active [employer] [place] w/Device Kit Use up to 4 times [...] goal of less than 7.0% ([facility]) Take 1 Tablet by mouth daily. 90 Tablet 3 07/10/2024 Active OneTouch Ultra Test In Vitro Strip (Glucose Blood)Indications:T ype 2 diabetes mellitus with hemoglobin A1c goal of less than 7.0% ([facility]) Use to check blood sugars [...] AHI was 17.1 DME: [facility], [place] Titration study 04/27/12 set pressure of 8 [...] 30 Mcg, IM, 12 yrs and above ([email or web address]) 08/01/2022 DT - Diptheria/Tetanus (PEDS) 06/06/2005 Pneumococcal [...] with or suggestive of Atrial Fibrillation AT/AF [place]: 1.5% Total number of events: 8 Ongoing episode from 08/19/2024 at 0250 Additional Notes: Eliquis Appropriate AT/AF Therapy: Unsuccessful Stored EGMs are consistent with or suggestive of AT/AF with unsuccessful therapy Total episodes: 8 AT [place]: 1.5% Number of ATP therapy: 2 documented in this encounter Plan of Treatment Upcoming Encounters Date Type Department Care Team (Late st Contact Info) Description 09/06/2024 4:20 PM EST Telemedicine Rheumatology, [place] [address] [place] [address] Tessa Duque, [address] [place] [address] 09/21/2024 8:00 AM EST [facility] [address] [place] [phone] Dylan Barros MD [address] [place] [address] 12/14/2024 9:30 AM EST Office Visit Cardiology, [facility] [place] [address] Nicole Severino PA-C [address] [place] [address] 04/01/2025 11:20 AM EDT [facility] [address] [place] [phone] Riddhi CookareDO lianna [address] [place] [address] Scheduled Procedures Name Priority Associated Diagnoses Date/Ti [...] this encounter Medical Devices Implanted Type Area Thermal Cutting Machine Operator Device Identifier Shelf Expiration Date Model / Serial / Lot Lead Pace Selectsecure 3830-69 - [id number] Implanted:Qty: 1 on 11/18/2022 by Nora Antonio DO at OR [facility] Lead Left: Heart [employer] : CRM 10/18/2024 [id number] / / Description:RV LBBB Lead Novus Bipolar 52cm - [id number] - [id number] Implanted:Qty: 1 on 11/18/2022 by Nora Antonio DO at OR [facility] Lead Left: Heart [employer] : CRM 09/23/2024 5076-52 / [id number] / Description:RA Pacemaker [place]ulo Xt Dr Banks ls - [id number] - [id number] Implanted:Qty: 1 on 11/18/2022 by Nora Antonio DO at OR [facility] Pacemaker Left: Chest [employer] 04/09/2024 W1DR01 / [id number] / Lens Intraoc 26.5 - [id number] - [id number] Implanted:Qty: 1 on 02/23/2019 by Jonas Valentino MD at OR [facility] Right: Eye BAUSCH & LOMB 05/26/2023 [id number] / [id number] Lens Intraoc 24.5 - [id number] - [id number] Implanted:Qty: 1 on 03/02/2019 by Jonas Valentino MD at OR [facility] Left: Eye BAUSCH & LOMB 08/26/2023 [id number] / [id number] / [id number] Envelope Antibacterial Tyrx - [id number] Implanted:Qty: 1 on 11/18/2022 by Nora Antonio DO at OR [facility] [employer] : CRM [id number] 08/09/2023 [facility] M6122 / / [id number] documented as of this encounter Advance Directives * Full Code (Latest Code Status on File) Date Activated Date Inactivated Comments 04/05/2021 7:37 AM 04/05/2021 4:11 PM This order r eflects the patients wishes and were consensually agreed upon. Question Answer Comments Discussion of Advance Directives occurred with: Not Discussed Care Teams Security Specialist Relationship Specialty Start Date End Date Dylan Barros MD [address] [place] [facility] [place] [place] [address] PCP - General Family Medicine 11/07/23 documented as of this encounter
--- OUTSIDE RECORDS SUMMARY | 2024-09-24 19:27 | External Medical Summary | Summary of Care ---
Author Name Unknown Organization [facility] Address [address] [place] [address] Phone [phone] Care Team Providers Care Director Radio Name Role Phone Dylan Barros MD Primary Care Provider +1- [phone] Encounter Details Date Type Department Care Team (Late st Contact Info) Description 08/03/2024 Result Scan Unspecified Department Vitaly Webster MD [address] [place] [address] <No scans attached> Allergies Active Allergy Reactions Criticality Noted Date Comments Albuterol High 04/04/2022 Other reaction(s): racing heart Citalopram 04/04/2022 Other reaction(s): Unknown Sulfa Antibiotics Hives Medium 07/07/2000 documented as of this encounter (statuses as of 08/03/2024) Medications Medication Sig Dispensed Refills Start Date [...] MOUTH EVERY MORNING 90 Tablet 08/02/2024 Active documented as of this encounter (statuses as of 08/03/2024) Active Problems Problem Noted Date Diagnosed Date [...] AHI was 17.1 DME: [facility], [place] Titration study 04/27/12 set pressure of 8 cm HTN, goal below 130/80 01/09/2011 Chronic coronary artery disease 09/15/2010 Overview: Cath 2006 - 30% mid LAD stenosis Dyslipidemia, goal LDL below 70 09/15/2010 documented as of this encounter (statuses as of 08/03/2024) Resolved Problems Problem Noted Date Diagnosed Date Resolved Date Obstructive sleep apnea 11/28/201101/26 Overview: AHI 8..2 in April 2008 documented as of this encounter (statuses as of 08/03/2024) Immunizations Name Administration Dates Next Due COVID-19 mRNA, LNP-s, No Pre serve, 2-Dose Series (Moderna) 12/24/2020,11/19/2020 COVID-19, mRNA, LNP-s, PF, B ooster, 100mcg/0.5mg (Moderna) 08/18/2021 Covid-19, Mrna, Lnp-s, Pf, B ivalent, 30 Mcg, IM, 12 yrs and above ([employer]) 08/01/2022 DT - Diptheria/Tetanus (PEDS) 06/06/2005 Pneumococcal [...] Info) Description 09/06/2024 4:20 PM EST [facility] [address] [place] [address] Tessa Duque DO [address] [place] [address] 09/21/2024 8:00 AM EST Office Visit [facility] [address] [place] [phone] Dylan Barros MD [address] [place] [address] Scheduled Procedures Name Priority Associated [...] history exists Albumin/Creatinine Ratio 07/08/2024 07/08/2023, 0806/2022 HbA1c 09/01/2024 03/01/2024, 06/27, 11/26/2022, Additional history [...] this encounter Medical Devices Implanted Type Area Gun Examiner Device Identifier Shelf Expiration Date Model / Serial / Lot Lead Pace Selectsecure 3830-69 - [id number] Implanted:Qty: 1 on 11/18/2022 by Nora Antonio DO at OR [facility] Lead Left: Heart [employer] : CAR 10/18/2024 [id number] / / Description:RV LBBB Lead Novus Bipolar 52cm - [id number] - [id number] Implanted:Qty: 1 on 11/18/2022 by Nora Antonio DO at OR [facility] Lead Left: Heart [employer] : [facility] 09/23/2024 5076-52 / [id number] / Description:RA Pacemaker Dana Xt Dr Banks Wrls - [id number] - [id number] Implanted:Qty: 1 on 11/18/2022 by Nora Antonio DO at OR [facility] Pacemaker Left: Chest [employer] 04/09/2024 W1DR01 / [id number] / Lens Intraoc 26.5 - [id number] - [id number] Implanted:Qty: 1 on 02/23/2019 by Jonas Valentino MD at OR [facility] Right: Eye BAUSCH & LOMB 05/26/2023 [id number] / [id number] / [id number] Lens Intraoc 24.5 - [id number] - [id number] Implanted:Qty: 1 on 03/02/2019 by Jonas Valentino MD at OR [facility] Left: Eye BAUSCH & LOMB 08/26/2023 [id number] / [id number] / [id number] Envelope Antibacterial Tyrx - [id number] Implanted:Qty: 1 on 11/18/2022 by Nora Antonio DO at OR [facility] [employer] : [facility] [id number] 08/09/2023 CMR M6122 / / [id number] documented as of this encounter Procedures Procedure Name Priority Date/Time Associated Diagnosis Comments CARDIOLOGY SCANNED RESULT 08/03/2024 documented in this encounter Results * CARDIOLOGY SCANNED RESULT (08/03/2024) 08/03/2024 Vitaly Webster MD OTHER documented in this encounter Advance Directives * Full Code (Latest Code Status on File) Date Activated Date Inactivated Comments 04/05/2021 7:37 AM 04/05/2021 4:11 PM This order r eflects the patients wishes and were consensually agreed upon. Question Answer Comments Discussion of Advance Directives occurred with: Not Discussed Care Teams Director Radio Relationship Specialty Start Date End Date Dylan Barros MD [address] [place] [address] PCP - General Family Medicine 11/07/23 documented as of this encounter
--- OUTSIDE RECORDS SUMMARY | 2024-09-24 19:28 | External Medical Summary | Summary of Care ---
Author Name Unknown Organization [facility] Address [address] [place] [address] Phone [phone] Care Team Providers Care Front Of House Manager Name Role Phone Fabian Rhodes MD Primary Care Provider +1- [phone] Reason for Visit * Reason Onset Date Comments Medication Refill 07/10/2024 Encounter Details Date Type Department Care Team (Late st Contact Info) Description 07/10/2024 Refill Family Practice [facility] [address] [facility] [place] [address] Nella Ibarra MD [address] [place] [place] [address] Type 2 diabetes mellitus with hemoglobin A1c goal of less than 7.0% ([facility]) Allergies Active Allergy Reactions Criticality Noted Date Comments Albuterol High 04/04/2022 Other reaction(s): racing heart Citalopram 04/04/2022 Other reaction(s): Unknown Sulfa Antibiotics Hives Medium 07/07/2000 documented as of this encounter (statuses as of 07/10/2024) Medications Medication Sig Dispensed Refills Start Date [...] 180 Tablet 3 03/10/2024 Active OneTouch Verio In Vitro Strip (Glucose Blood) Use up to 4 times a day E11.9 100 Strip 11 03/18/2024 Active OneTouch Verio w/Device Kit Use up [...] mouth daily. 90 Tablet 3 07/10/2024 Active metFORMIN HCl ER 500 MG Oral Tablet Extended Release 24 Hour (Glucophage XR)Indications:Typ e 2 diabetes mellitus with hemoglobin A1c goal of less than 7.0% (HCC) Take 1 Tablet by mouth daily. 90 Tablet 3 06/19/2023 4 Discontinue d(Refill) documented as of this encounter (statuses as of 07/10/2024) Active Problems Problem Noted Date Diagnosed Date [...] AHI was 17.1 DME: [facility], [place] Titration study 04/27/12 set pressure of 8 cm HTN, goal below 130/80 01/09/2011 Chronic coronary artery disease 09/15/2010 Overview: Cath 2006 - 30% mid LAD stenosis Dyslipidemia, goal LDL below 70 09/15/2010 documented as of this encounter (statuses as of 07/10/2024) Resolved Problems Problem Noted Date Diagnosed Date Resolved Date Obstructive sleep apnea 11/28/201101/26 Overview: AHI 8..2 in April 2008 documented as of this encounter (statuses as of 07/10/2024) Immunizations Name Administration Dates Next Due COVID-19 [...] encounter Miscellaneous Notes * Telephone Encounter - Zbigniew Kahn, [facility] - 07/10/2024 5:50 PM EDTSigned Prescriptions: Disp Refills metFORMIN HCl ER 500 MG Oral Tablet Extend*90 Tab*3 Sig: Take 1 Tablet by mouth daily.Authorizing Provider: FABIAN RHODES User: ZBIGNIEW KAHN documented in this encounter Plan of Treatment Upcoming Encounters Date Type Department Care Team (Late st Contact Info) Description 09/06/2024 4:20 PM EST [facility] [address] [place] [address] Tessa Duque DO [address] [place] [address] 09/21/2024 8:00 AM EST Office Visit [facility] [address] [place] [phone] Fabian Rhodes MD [address] [place], [place] [address] Scheduled Procedures Name Priority Associated Diagnoses Date/Ti [...] this encounter Medical Devices Implanted Type Area Student Driving Instructor Device Identifier Shelf Expiration Date Model / Serial / Lot Lead Pace Selectsecure 3830-69 - [id number] Implanted:Qty: 1 on 11/18/2022 by Nora Antonio DO at OR [facility] Lead Left: Heart [employer] : CAR 10/18/2024 [id number] / / Description:RV LBBB Lead Novus Bipolar 52cm - [id number] - [id number] Implanted:Qty: 1 on 11/18/2022 by Nora Antonio DO at OR [facility] Lead Left: Heart [employer] : CAR 09/23/2024 5076-52 / [id number] / Description:RA Pacemaker Dana Xt Dr Jocelyn ls - [id number] - [id number] Implanted:Qty: 1 on 11/18/2022 by Nora Antonio DO at OR [facility] Pacemaker Left: Chest [employer] 04/09/2024 W1DR01 / [id number] / Lens Intraoc 26.5 - [id number] - [id number] Implanted:Qty: 1 on 02/23/2019 by Jonas Valentino MD at OR [facility] Right: Eye BAUSCH & LOMB 05/26/2023 [id number] / [id number] / [id number] Lens Intraoc 24.5 - [id number] - [id number] Implanted:Qty: 1 on 03/02/2019 by Jonas Valentino MD at OR [facility] Left: Eye BAUSCH & LOMB 08/26/2023 [id number] / [id number] / [id number] Envelope Antibacterial Tyrx - [id number] Implanted:Qty: 1 on 11/18/2022 by Nora Antonio DO at OR [facility] [employer] : CRM [id number] 08/09/2023 [facility] M6122 / / [id number] documented as of this encounter Visit Diagnoses Diagnosis Type 2 diabetes mellitus with hemoglobin A1c goal of less than 7.0% (HCC) documented in this encounter Advance Directives * Full Code (Latest Code Status on File) Date Activated Date Inactivated Comments 04/05/2021 7:37 AM 04/05/2021 4:11 PM This order r eflects the patients wishes and were consensually agreed upon. Question Answer Comments Discussion of Advance Directives occurred with: Not Discussed Care Teams Front Of House Manager Relationship Specialty Start Date End Date Fabian Rhodes MD [address] [facility] [place] [address] PCP - General Family Medicine 11/07/23 documented as of this encounter
--- OUTSIDE RECORDS SUMMARY | 2024-09-24 19:28 | External Medical Summary | Summary of Care ---
Author Name Unknown Organization [facility] Address [address] [place] [address] Phone [phone] Care Team Providers Care Camera Repairer Name Role Phone Dylan Barros MD Primary Care Provider [phone]- [phone] Reason for Visit * Reason Onset Date Comments Durable Medical Equipment 07/09/2024 CPAP s upplies Encounter Details Date Type Department Care Team (Late st Contact Info) Description 07/09/2024 Telephone Sleep Disorders Ctr [facility] [address] [facility] [place] [phone] Nohemy Masters CRNP [address] [facility] [place] [id number] Durable Medical Equipment (CPAP supplies ) Allergies Active Allergy Reactions Criticality Noted Date Comments Albuterol High 04/04/2022 Other reaction(s): racing heart Citalopram 04/04/2022 Other reaction(s): Unknown Sulfa Antibiotics Hives Medium 07/07/2000 documented as of this encounter (statuses as of 07/09/2024) Medications Medication Sig Dispensed Refills Start Date [...] 1 Capsule by mouth every evening. Active metFORMIN HCl ER 500 MG Oral Tablet Extended Release 24 Hour (Glucophage XR)Indications:Type 2 diabetes mellitus with hemoglobin A1c goal of less than 7.0% ([facility]) Take 1 Tablet by mouth daily. 90 Tablet 3 06/19/2023 Active Additional Information Patient taking differently:500 mg OralHS, Reported on 12/31/2023 hydroCHLOROthiazide 25 MG Oral Tablet (Hydrodiuril)Indica tions:Chronic [...] MG Oral Tablet (Deltasone)Indicati ons:PMR (polymyalgia rheumatica) ([facility]) Take 1 Tablet by mouth in the morning. 90 Tablet 04/09/2024 Active predniSONE 5 MG Oral Tablet (Deltasone)Indicati ons:PMR (polymyalgia rheumatica) ([facility]) Take 1 Tablet by mouth in the [...] other meds) 135 Tablet 3 06/16/2024 Active documented as of this encounter (statuses as of 07/09/2024) Active Problems Problem Noted Date Diagnosed Date [...] AHI was 17.1 DME: [facility], [place] Titration study 04/27/12 set pressure of 8 cm HTN, goal below 130/80 01/09/2011 Chronic coronary artery disease 09/15/2010 Overview: Cath 2006 - 30% mid LAD stenosis Dyslipidemia, goal LDL below 70 09/15/2010 documented as of this encounter (statuses as of 07/09/2024) Resolved Problems Problem Noted Date Diagnosed Date Resolved Date Obstructive sleep apnea 11/28/201101/26 Overview: AHI 8..2 in April 2008 documented as of this encounter (statuses as of 07/09/2024) Immunizations Name Administration Dates Next Due COVID-19 [...] Telephone Encounter - Eva Ceja OSA - 07/09/2024 10:32 AM EDT DME order for CPAP supplies submitted to [employer]. documented in this encounter Plan of Treatment Upcoming Encounters Date Type Department Care Team (Late st Contact Info) Description 09/06/2024 4:20 PM EST Telemedicine Rheumatology, [place] [address] [place] [address] Dunia Tessa, [address] [place] [address] 09/21/2024 8:00 AM EST Office Visit [facility] [address] [place] [address] Dylan Barros MD [address] [place] [address] Scheduled Procedures Name Priority Associated [...] encounter Medical Devices Implanted Type Area Manager Float Device Identifier Shelf Expiration Date Model / Serial / Lot Lead Pace Selectsecure 3830-69 - [id number] Implanted:Qty: 1 on 11/18/2022 by Nora Antonio DO at OR [facility] Lead Left: Heart [employer] : CRM 10/18/2024 [id number] / / Description:RV LBBB Lead Novus Bipolar 52cm - [id number] - [id number] Implanted:Qty: 1 on 11/18/2022 by Nora Antonio DO at OR [facility] Lead Left: Heart [employer] : CRM 09/23/2024 5076-52 / [id number] / Description:RA Pacemaker Dnaa Xt Dr Mri Wrls - [id number] - [id number] Implanted:Qty: 1 on 11/18/2022 by Nora Antonio DO at [facility] Pacemaker Left: Chest [employer] 04/09/2024 [id number] / [id number] / Lens Intraoc 26.5 - [id number] - [id number] Implanted:Qty: 1 on 02/23/2019 by Jonas Valentino MD at OR [facility] Right: Eye [employer]OM[employer] 05/26/2023 [id number] / [id number] / [id number] Lens Intraoc 24.5 - [id number] - [id number] Implanted:Qty: 1 on 03/02/2019 by Jonas Valentino MD at OR [facility] Left: Eye [employer] LOMB 08/26/2023 [id number] / [id number] / [id number] Envelope Antibacterial Tyrx - [id number] Implanted:Qty: 1 on 11/18/2022 by Nora Antonio DO at OR [facility] [employer] : CRM [id number] 08/09/2023 CMR M6122 / / [id number] documented as of this encounter Advance Directives * Full Code (Latest Code Status on File) Date Activated Date Inactivated Comments 04/05/2021 7:37 AM 04/05/2021 4:11 PM This order r eflects the patients wishes and were consensually agreed upon. Question Answer Comments Discussion of Advance Directives occurred with: Not Discussed Care Teams Camera Repairer Relationship Specialty Start Date End Date Dylan Barros MD [address] [facility] [place] [address] PCP - General Family Medicine 11/07/23 documented as of this encounter
--- OUTSIDE RECORDS SUMMARY | 2024-09-24 19:28 | External Medical Summary | Summary of Care ---
Author Name Unknown Organization [facility] Address [address] [place] [address] Phone [phone] Care Team Providers Care Video And Sound Recorder Name Role Phone Dylan Barros MD Primary Care Provider [phone]- [phone] Encounter Details Date Type Department Care Team (Late st Contact Info) Description 07/09/2024 Result Scan Unspecified Department <No scans attached> Allergies Active Allergy Reactions Criticality Noted Date Comments Albuterol High 04/04/2022 Other reaction(s): racing heart Citalopram 04/04/2022 Other reaction(s): Unknown Sulfa Antibiotics Hives Medium 07/07/2000 documented as of this encounter (statuses as of 07/12/2024) Medications Medication Sig Dispensed Refills Start Date [...] before bedtime. 180 Tablet 3 03/10/2024 Active PayverisTouch Verio In Vitro Strip (Glucose Blood) Use up to 4 times a day E11.9 100 Strip 11 03/18/2024 Active PayverisTouch Verio w/Device Kit Use up to 4 times a day E11.9 1 Kit 03/23/2024 Active predniSONE 10 MG Oral Tablet (Deltasone)Indicati ons:PMR (polymyalgia rheumatica) ([facility]) Take 1 Tablet by mouth in the morning. 90 Tablet 04/09/2024 Active predniSONE 5 MG Oral Tablet (Deltasone)Indicati ons:PMR (polymyalgia rheumatica) ([facility]) Take 1 Tablet by mouth in the morning. 90 Tablet 04/09/2024 Active Additional Information Patient not taking.Reported on 06/14/2024 predniSONE 2.5 MG Oral Tablet (Deltasone)Indicati ons:PMR (polymyalgia rheumatica) ([facility]) Take 1 Tablet by mouth [...] as of this encounter (statuses as of 07/12/2024) Active Problems Problem Noted Date Diagnosed Date [...] AHI was 17.1 DME: [facility], [place] Titration study 04/27/12 set pressure of 8 cm HTN, goal below 130/80 01/09/2011 Chronic coronary artery disease 09/15/2010 Overview: Cath 2006 - 30% mid LAD stenosis Dyslipidemia, goal LDL below 70 09/15/2010 documented as of this encounter (statuses as of 07/12/2024) Resolved Problems Problem Noted Date Diagnosed Date Resolved Date Obstructive sleep apnea 11/28/201101/26 Overview: AHI 8..2 in April 2008 documented as of this encounter (statuses as of 07/12/2024) Immunizations Name Administration Dates Next Due COVID-19 mRNA, LNP-s, No Pre serve, 2-Dose Series (Moderna) 12/24/2020,11/19/2020 COVID-19, mRNA, LNP-s, PF, B ooster, 100mcg/0.5mg (Moderna) 08/18/2021 Covid-19, Mrna, Lnp-s, Pf, B ivalent, 30 Mcg, IM, 12 yrs and above (AeroFS) 08/01/2022 DT - Diptheria/Tetanus (PEDS) 06/06/2005 Pneumococcal [...] Info) Description 09/06/2024 4:20 PM EST [facility] [address] [place] [address] Tessa Duque, [address] [place] [address] 09/21/2024 8:00 AM EST Office Visit [facility] [address] [place] [id number] Dylan Barros MD [address] [place] [address] Scheduled Procedures Name Priority Associated Diagnoses Date/Ti [...] this encounter Medical Devices Implanted Type Area Color Worker Device Identifier Shelf Expiration Date Model / Serial / Lot Lead Pace [facility] 3830-69 - [id number] Implanted:Qty: 1 on 11/18/2022 by Nora Antonio DO at OR [facility] Lead Left: Heart [employer] : [facility] 10/18/2024 [id number] / / Description:RV LBBB Lead Novus Bipolar 52cm - [id number] - [id number] Implanted:Qty: 1 on 11/18/2022 by Nora Antonio DO at OR [facility] Lead Left: Heart [employer] : [facility] 09/23/2024 5076-52 / [id number] / Description:RA Pacemaker Dana Xt [facility] Joc[facility] - [id number] - [id number] Implanted:Qty: 1 on 11/18/2022 by Nora Antonio DO at OR [facility] Pacemaker Left: Chest [employer] 04/09/2024 [id number] / [id number] / Lens Intraoc 26.5 - [id number] - [id number] Implanted:Qty: 1 on 02/23/2019 by Jonas Valentino MD at OR [facility] Right: Eye [employer] 05/26/2023 [id number] / [id number] / [id number] Lens Intraoc 24.5 - [id number] - [id number] Implanted:Qty: 1 on 03/02/2019 by Jonas Valentino MD at OR [facility] Left: Eye [employer] 08/26/2023 [id number] / [id number] / [id number] Envelope Antibacterial Tyrx - [id number] Implanted:Qty: 1 on 11/18/2022 by Nora Antonio DO at OR [facility] [employer] : [facility] [id number] 08/09/2023 CMR M6122 / / [id number] documented as of this encounter Procedures Procedure Name Priority Date/Time Associated Diagnosis Comments CARDIOLOGY SCANNED RESULT 07/09/2024 documented in this encounter Results * CARDIOLOGY SCANNED RESULT (07/09/2024) 07/09/2024 No Physician Data Unknown OTHER documented in this encounter Advance Directives * Full Code (Latest Code Status on File) Date Activated Date Inactivated Comments 04/05/2021 7:37 AM 04/05/2021 4:11 PM This order r eflects the patients wishes and were consensually agreed upon. Question Answer Comments Discussion of Advance Directives occurred with: Not Discussed Care Teams Video And Sound Recorder Relationship Specialty Start Date End Date Dylan Barros MD [address] [place] [facility] [place] [address] PCP - General Family Medicine 11/07/23 documented as of this encounter
[2024-09-24] MEDS: ACETAMINOPHEN 1,000 MG/100 ML VIAL IV STA (19:46)
[2024-09-24 19:55] LABS: Basophils # (auto) 0.04 K/uL (0.00-0.20); Basophils % (auto) 0.7 %; Eosinophils # (auto) 0.04 K/uL (0.00-0.50); Eosinophils % (auto) 0.7 %; Hematocrit (blood only) 40.7 % (37.0-47.0); Hemoglobin 13.2 g/dl (12.0-16.0); Immature Granulocytes # (auto) 0.04 K/uL (0.01-0.20); Immature Granulocytes % (auto) 0.7 %; Lymphocytes # (auto) 0.59 K/uL (1.20-3.40); Lymphocytes % (auto) 9.9 %; Mean Corpuscular Hemoglobin 32.4 pg (25.0-34.0); Mean Corpuscular Hgb Conc 32.4 g/dL (32.0-36.0); Mean Platelet Volume 11.7 fL (9.4-12.4); Monocytes # (auto) 0.75 K/uL (0.11-0.59); Monocytes % (auto) 12.6 %; Neutrophils % (auto) 75.4 %; Platelet Count 132 K/uL (130-400); RDW Coefficient of Variation 14.6 % (11.5-14.5); Red Blood Count 4.07 M/uL (4.20-5.40); White Blood Count 5.96 K/ul (4.8-10.8)
[2024-09-24 20:14] LABS: Albumin Level 4.3 gm/dl (3.4-5.0); BUN Creatinine Ratio 20.3 (10-20); Bilirubin Direct 0.1 mg/dl (0-0.2); Bilirubin,Total 0.7 mg/dl (0.2-1.0); Calcium 9.3 mg/dl (8.6-10.3); Creatinine Clr Calc Pharmacy 72.6 ml/min; Magnesium 1.9 mg/dl (1.7-2.4); Potassium 3.5 mmol/L (3.5-5.1); Total Protein 6.8 gm/dl (6.0-8.3)
[2024-09-24 20:20] LABS: Partial Thromboplastin Time 27 Seconds (21-31); Prothrombin Time 10.6 Seconds (9.0-12.0); Troponin I High Sensitivity 5.7 pg/ml (0-14)
[2024-09-24 20:26] LABS: Base Excess VBG 1.2 mEq/L; HCO3 VBG 26 mmol/L; Oxygen Saturation VBG 89.6 %; PCO2 VBG 41 mmHg (38-50); PO2 VBG 58 mmHg; pH VBG 7.41 (7.36-7.41)
--- NOTE | 2024-09-24 20:32 | Emergency Department Note ---
History of Present Illness General Chief Complaint: Flu Like Symptoms Stated Complaint: Flu Like Symptoms Time Seen by Provider: 09/24/24 19:26 History of Present Illness Provider Complaint: shortness of breath and cough Onset (ago): day(s) (2) Severity: moderate Consistency/Duration: + progressively worsening Relieved By: + nothing Exacerbated By: + coughing Context: + recent illness ( has similar symptoms) Associated symptoms: + cough, + sputum production, + chest congestion and + other (Nausea); no fever, no wheezing, no hemoptysis or no nausea/vomiting HPI Narrative: Patient was brought in here via EMS from an urgent care where she is found to be hypoxic. Home Medications Medication Instructions Recorded Confirmed Type nitroglycerin 0.4 mg sublingual 0.4 mg sublingual Q5M PRN Chest 07/26/19 09/24/24 History tablet Pain psyllium husk 3.4 gram/5.4 gram 1 tbs PO DAILY PRN Constipation 03/10/20 09/24/24 History oral powder (Metamucil) atorvastatin 20 mg tablet 20 mg PO HS 03/19/20 09/24/24 History lorazepam 1 mg tablet 1 mg PO Q8H PRN Anxiety 03/21/20 09/24/24 History hydrochlorothiazide 25 mg tablet 25 mg PO DAILY 06/01/20 09/24/24 History cholecalciferol (vitamin D3) 25 2,000 unit PO QAM 01/04/21 09/24/24 History mcg (1,000 unit) capsule multivitamin 1 tab PO QAM 01/04/21 09/24/24 History blood sugar diagnostic (OneTouch #100 ea 01/08/21 09/24/24 Rx Ultra Blue Test Strip) levothyroxine 50 mcg tablet 50 mcg PO DAILY #30 tabs 04/04/22 09/24/24 Rx sertraline 100 mg tablet 150 mg (1.5 x 100 mg) PO QAM #45 04/16/22 09/24/24 Rx tabs apixaban 5 mg tablet (Eliquis) 5 mg PO BID 02/26/24 09/24/24 History metformin 500 mg tablet,extended 500 mg PO QPM 02/26/24 09/24/24 History release 24 hr metoprolol succinate 25 mg 25 mg PO QAM 02/26/24 09/24/24 History tablet,extended release 24 hr trazodone 50 mg tablet 25 mg PO QPM PRN Sleep 02/26/24 09/24/24 History empagliflozin 10 mg tablet 10 mg PO DAILY 06/29/24 09/24/24 History (Jardiance) potassium chloride 20 mEq 20 meq PO BID 06/29/24 09/24/24 History tablet,extended release(part/cryst) aspirin 81 mg tablet,delayed 81 mg PO DAILY 09/24/24 09/24/24 History release metoprolol succinate 50 mg 50 mg PO QPM 09/24/24 09/24/24 History tablet,extended release 24 hr prednisone 1 mg tablet 3 mg PO DAILY 09/24/24 09/24/24 History prednisone 5 mg tablet 5 mg PO DAILY 09/24/24 09/24/24 History sertraline 100 mg tablet 150 mg PO DAILY 09/24/24 09/24/24 History Allergies Allergy/AdvReac Type Severity Reaction Status Date / Time citalopram [From Celexa] Allergy Unknown Unknown Verified 06/29/24 14:36 Sulfa (Sulfonamide Allergy Unknown UNKNOWN Verified 06/29/24 14:36 Antibiotics) albuterol AdvReac Intermediate racing Verified 06/29/24 14:36 heart Past Med/Surg History Problem List (Updated 09/24/24 @ 22:12 by Chip Bush MD) Hypoxia (Acute) PAF (paroxysmal atrial fibrillation) Acute hypoxic respiratory failure COVID-19 (Acute) Atrial flutter with rapid ventricular response (Acute) Low magnesium level (Acute) Hypokalemia (Acute) Atrial fibrillation/flutter (Acute) Tachy-luis syndrome Depression CAD (coronary artery disease) PMR (polymyalgia rheumatica) Cardiac pacemaker in situ (Acute) Hypomagnesemia Bradycardia Encounter for examination following treatment at hospital H/O atrial fibrillation without current medication Abnormal thyroid function test Unsteady gait when walking Poor balance Decreased hearing of both ears Inflamed seborrheic keratosis Skin tag Abnormal skin growth Multiple pulmonary nodules determined by computed tomography of lung Obstructive sleep apnea (adult) (pediatric) External hemorrhoids Iron deficiency anemia Nasal congestion Abnormal CT of the chest Multiple pulmonary nodules Diabetes mellitus Lumbar radicular pain Periumbilic rebound abdominal tenderness Anxiety Insomnia (Acute) Abnormal CT of the chest Atrial fibrillation with rapid ventricular response (Acute) Elevated liver enzymes (Acute) Thrombocytopenia (Acute) Neutropenia (Acute) Allergic rhinitis (Acute) Arthritis (Acute) CAD in [place] artery (Acute) Depression with anxiety (Chronic) Encounter for long-term (current) use of medications (Acute) Osteopenia (Acute) GERD (gastroesophageal reflux disease) Left bundle branch block (Acute) Hypothyroidism (Chronic) Hypertension (Chronic) Hyperlipidemia (Chronic) Nasal vestibulitis Medical History GIB (gastrointestinal bleeding) Anaplasmosis Infected lesion in nose Concussion Hemorrhoids History of coronary artery disease Surgical History History of esophagogastroduodenoscopy (EGD) 02/22/21 Dr. Pablo Mckay S/P colonoscopy 02/26/21 Dr. Pablo Mckay History of bilateral oophorectomy History of hernia surgery History of back surgery Hx of hysterectomy H/O cardiac catheterization Family History Father Hypertension Heart disease Mother Stroke Other Breast cancer Myocardial infarction No family history of adverse response to anesthesia No family history of bleeding disorder Denies family history of Ovarian cancer Prostate cancer Colorectal cancer Social History Smoking Status: Unknown if ever smoked Second Hand Exposure: No; Do You Dip or Chew Tobacco: No; Hx Alcohol Use: No Hx Substance Use: No Preferred Language: Moldovan Communication Ability: Effective 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 Beliefs That Will Affect Care: None marital status: Current Living Situation: Spouse current occupational status: retired How many Children do You have: 3 Feels Safe at Home: Yes caffeine: Yes Dental Care, Regularly: Yes Physical Activity Frequency: 1-2 Times per Week Seatbelt Use: always Sunscreen Use: Yes Assistive Devices: CPAP Physical Exam 2 Vital Signs: Vital Signs - 24 hr 09/24/24 19:24 09/24/24 19:26 09/24/24 19:36 Temperature 38.1 C H Temperature Source Oral Pulse Rate 84 65 60 Pulse Rate [Apical ] Pulse Rate from Sp O2 Sensor Pulse Rhythm Regular Regular Pulse Rhythm [Apic al] Pulse Strength Normal Pulse Strength [Ap ical] Respiratory Rate 25 H Respiratory Effort / Characteristics Non-Labored Sponta neous Respiratory Depth Normal Respiratory Patter n Regular Blood Pressure 175/121 H Blood Pressure [Ri ght Arm] Blood Pressure Lani n 139 Blood Pressure Lani n [Right Arm] Blood Pressure Pos ition Lying Blood Pressure Pos ition [Right Arm] Pulse Oximetry 93 92 Oxygen Delivery Me thod Room Air Room Air Oxygen Flow Rate Sepsis Recent Feve r Within 48 Hours Yes Sepsis New/Unexpla ined Change in Men sheryl Status No Sepsis Action Take n by Nursing Physician Notified 09/24/24 19:36 09/24/24 19:36 09/24/24 19:37 Temperature Temperature Source Pulse Rate 62 Pulse Rate [Apical ] 60 Pulse Rate from Sp O2 Sensor 62 Pulse Rhythm Pulse Rhythm [Apic al] Regular Pulse Strength Pulse Strength [Ap ical] Normal Respiratory Rate 24 22 Respiratory Effort / Characteristics Non-Labored Sponta neous Respiratory Depth Normal Respiratory Patter n Regular Blood Pressure 129/65 Blood Pressure [Ri ght Arm] 129/65 Blood Pressure Lani n 91 Blood Pressure Lani n [Right Arm] 86 Blood Pressure Pos ition Blood Pressure Pos ition [Right Arm] Pulse Oximetry 92 93 Oxygen Delivery Me thod Room Air Oxygen Flow Rate Sepsis Recent Feve r Within 48 Hours Sepsis New/Unexpla ined Change in Men sheryl Status Sepsis Action Take n by Nursing 09/24/24 19:42 09/24/24 19:51 09/24/24 19:51 Temperature Temperature Source Pulse Rate 65 60 Pulse Rate [Apical ] 60 Pulse Rate from Sp O2 Sensor 66 Pulse Rhythm Pulse Rhythm [Apic al] Regular Pulse Strength Pulse Strength [Ap ical] Normal Respiratory Rate 19 21 21 Respiratory Effort / Characteristics Non-Labored Sponta neous Respiratory Depth Normal Respiratory Patter n Regular Blood Pressure 118/64 Blood Pressure [Ri ght Arm] 118/64 Blood Pressure Lani n 82 Blood Pressure Lani n [Right Arm] 82 Blood Pressure Pos ition Blood Pressure Pos ition [Right Arm] Lying Pulse Oximetry 91 95 95 Oxygen Delivery Me thod Nasal Cannula Oxygen Flow Rate 2 Sepsis Recent Feve r Within 48 Hours Sepsis New/Unexpla ined Change in Men sheryl Status Sepsis Action Take n by Nursing 09/24/24 19:52 09/24/24 19:53 09/24/24 19:54 Temperature Temperature Source Pulse Rate 60 Pulse Rate [Apical ] Pulse Rate from Sp O2 Sensor 60 Pulse Rhythm Pulse Rhythm [Apic al] Pulse Strength Pulse Strength [Ap ical] Respiratory Rate 21 Respiratory Effort / Characteristics Respiratory Depth Respiratory Patter n Blood Pressure Blood Pressure [Ri ght Arm] Blood Pressure Lani n Blood Pressure Lani n [Right Arm] Blood Pressure Pos ition Blood Pressure Pos ition [Right Arm] Pulse Oximetry 89 L 96 95 Oxygen Delivery Me thod Room Air Nasal Cannula Oxygen Flow Rate 2 Sepsis Recent Feve r Within 48 Hours Sepsis New/Unexpla ined Change in Men sheryl Status Sepsis Action Take n by Nursing 09/24/24 19:55 09/24/24 20:00 09/24/24 20:06 Temperature Temperature Source Pulse Rate 62 Pulse Rate [Apical ] 60 Pulse Rate from Sp O2 Sensor 62 Pulse Rhythm Pulse Rhythm [Apic al] Regular Pulse Strength Pulse Strength [Ap ical] Normal Respiratory Rate 23 22 Respiratory Effort / Characteristics Non-Labored Sponta neous Respiratory Depth Normal Respiratory Patter n Regular Blood Pressure 118/64 107/62 Blood Pressure [Ri ght Arm] 107/62 Blood Pressure Lani n 83 77 Blood Pressure Lani n [Right Arm] 77 Blood Pressure Pos ition Blood Pressure Pos ition [Right Arm] Lying Pulse Oximetry 96 95 Oxygen Delivery Me thod Nasal Cannula Oxygen Flow Rate 2 Sepsis Recent Feve r Within 48 Hours Sepsis New/Unexpla ined Change in Men sheryl Status Sepsis Action Take n by Nursing 09/24/24 20:15 09/24/24 20:30 09/24/24 20:37 Temperature Temperature Source Pulse Rate 60 Pulse Rate [Apical ] Pulse Rate from Sp O2 Sensor Pulse Rhythm Pulse Rhythm [Apic al] Pulse Strength Pulse Strength [Ap ical] Respiratory Rate 22 Respiratory Effort / Characteristics Non-Labored Sponta neous Respiratory Depth Respiratory Patter n Blood Pressure 116/70 Blood Pressure [Ri ght Arm] Blood Pressure Lani n 77 Blood Pressure Lani n [Right Arm] Blood Pressure Pos ition Blood Pressure Pos ition [Right Arm] Pulse Oximetry 96 96 96 Oxygen Delivery Me thod Nasal Cannula Room Air Oxygen Flow Rate 2 2 Sepsis Recent Feve r Within 48 Hours Sepsis New/Unexpla ined Change in Men sheryl Status Sepsis Action Take n by Nursing 09/24/24 20:39 09/24/24 20:46 09/24/24 20:46 Temperature Temperature Source Pulse Rate 60 Pulse Rate [Apical ] Pulse Rate from Sp O2 Sensor 60 59 L Pulse Rhythm Pulse Rhythm [Apic al] Pulse Strength Pulse Strength [Ap ical] Respiratory Rate 22 27 H Respiratory Effort / Characteristics Respiratory Depth Respiratory Patter n Blood Pressure 116/70 129/65 129/65 Blood Pressure [Ri ght Arm] Blood Pressure Lani n 85 76 76 Blood Pressure Lani n [Right Arm] Blood Pressure Pos ition Blood Pressure Pos ition [Right Arm] Pulse Oximetry 96 Oxygen Delivery Me thod Oxygen Flow Rate Sepsis Recent Feve r Within 48 Hours Sepsis New/Unexpla ined Change in Men sheryl Status Sepsis Action Take n by Nursing 09/24/24 21:00 09/24/24 21:13 09/24/24 21:50 Temperature Temperature Source Pulse Rate Pulse Rate [Apical ] 60 60 62 Pulse Rate from Sp O2 Sensor Pulse Rhythm Pulse Rhythm [Apic al] Regular Regular Pulse Strength Pulse Strength [Ap ical] Normal Normal Respiratory Rate 22 19 18 Respiratory Effort / Characteristics Non-Labored Sponta neous Non-Labored Sponta neous Non-Labored Sponta neous Respiratory Depth Normal Normal Respiratory Patter n Regular Regular Blood Pressure Blood Pressure [Ri ght Arm] 158/88 H 161/76 H Blood Pressure Lani n Blood Pressure Lani n [Right Arm] 111 104 Blood Pressure Pos ition Blood Pressure Pos ition [Right Arm] Lying Lying Pulse Oximetry 95 96 96 Oxygen Delivery Me thod Nasal Cannula Nasal Cannula Nasal Cannula Oxygen Flow Rate 2 2 2 Sepsis Recent Feve r Within 48 Hours Sepsis New/Unexpla ined Change in Men sheryl Status Sepsis Action Take n by Nursing Physical Exam: Physical Exam GENERAL: oriented to person, place, and time. appears well-developed and well- nourished. HENT: Exam performed. - Head: Normocephalic and atraumatic. EYES: Conjunctivae and EOM are normal. Right eye exhibits no discharge. Left eye exhibits no discharge. No scleral icterus. NECK: Normal range of motion. Neck supple. No JVD present. CV: Normal rate, regular rhythm, normal heart sounds and intact distal pulses. There is no peripheral edema. Palpable radial pulses bue. PULM/CHEST: Effort normal and breath sounds normal. No respiratory distress. No stridor. no wheezes. no rales. ABD: The abdomen is soft. There is no tenderness. NEURO: Motor and sensation grossly intact. SKIN: Skin is warm and dry. He is not diaphoretic. PSYCH: normal mood and affect. Behavior is normal. Judgment and thought content normal. Course Course 1925: The patient was evaluated in room A4. A complete history and physical exam was performed Cardiac monitoring: An order was placed for continuous cardiac monitoring. The monitor shows a rate of 80 with paced rhythm interpreted by 1954: Patient's oxygen saturation going down to 89% on room air. Supplemental oxygen was applied via nasal cannula to improve the patient's oxygen saturation. 2039: Vital signs stable on supplemental oxygen via nasal cannula. Blood work unremarkable. Patient is COVID-positive. Patient treated with Decadron 6 mg IV [facility]. Administered Medications Magnesium Sulfate/Dextrose (Magnesium Sulfate / D5w) 1 gm in 100 mls @ 50 mls/hr IV ONE ONE Stop: 09/24/24 22:59 Last Admin: 09/24/24 21:02 Dose: 50 mls/hr Documented By: BRITTNY Discontinued Medications Albuterol (Albut/Ipratrop 3mg/0.5mg Neb 3 Ml Vial) 3 ml NEB NOW STA; Protocol Stop: 09/24/24 20:59 Last Admin: 09/24/24 21:32 Dose: Not Given Documented By: BRITTNY Dexamethasone (Dexamethasone Sod Inj 4 Mg/Ml Vial) 6 mg IV NOW STA Stop: 09/24/24 20:41 Last Admin: 09/24/24 21:02 Dose: 6 mg Documented By: BRITTNY Acetaminophen (Ofirmev) 1,000 mg in 100 mls @ 400 mls/hr IV NOW STA Stop: 09/24/24 19:50 Last Admin: 09/24/24 19:46 Dose: 400 mls/hr Documented By: BRITTNY Ipratropium Clare (Ipratropium [place] Neb Soln 0.02% 0.5mg/2.5ml Vial) 0.5 mg INH NOW STA Stop: 09/24/24 21:10 Last Admin: 09/24/24 21:29 Dose: 0.5 mg Documented By: KULDIP Levalbuterol HCl (Levalbuterol 1.25 Mg/3 Ml Neb) 1.25 mg NEB NOW STA Stop: 09/24/24 21:10 Last Admin: 09/24/24 21:29 Dose: 1.25 mg Documented By: KULDIP Medical Decision Making Laboratory Data Attestation: I reviewed the patient's lab results. 09/24/24 19:28 09/24/24 19:28 Lab Results 09/24/24 09/24/24 09/24/24 Range/Units 19:25 19:28 19:48 WBC 5.96 (4.8-10.8) K/ul RBC 4.07 L (4.20-5.40) M/uL Hgb 13.2 (12.0-16.0) g/dl Hct 40.7 (37.0-47.0) % MCV 100.0 (80.0-100.0) fL MCH 32.4 (25.0-34.0) pg MCHC 32.4 (32.0-36.0) g/dL RDW Std Deviation 54.0 H (36.4-46.3) fL RDW Coeff of Vito 14.6 H (11.5-14.5) % Plt Count 132 (130-400) K/uL MPV 11.7 (9.4-12.4) fL Immature Gran % (Auto) 0.7 % Neut % (Auto) 75.4 % Lymph % (Auto) 9.9 % [place] % (Auto) 12.6 % Eos % (Auto) 0.7 % Baso % (Auto) 0.7 % Neut # (Auto) 4.50 (1.40-6.50) K/uL Lymph # (Auto) 0.59 L (1.20-3.40) K/uL [place] # (Auto) 0.75 H (0.11-0.59) K/uL Eos # (Auto) 0.04 (0.00-0.50) K/uL Baso # (Auto) 0.04 (0.00-0.20) K/uL Immature Gran # (Auto) 0.04 (0.01-0.20) K/uL PT 10.6 (9.0-12.0) Seconds INR 1.0 (0.9-1.1) APTT 27 (21-31) Seconds PTT Ratio 1.0 VBG pH (7.36-7.41) VBG pCO2 (38-50) mmHg VBG pO2 mmHg VBG HCO3 mmol/L VBG O2 Saturation % VBG Base Excess mEq/L Sodium 138 (136-145) mmol/L Potassium 3.5 (3.5-5.1) mmol/L Chloride 100 (98-107) mmol/L Carbon Dioxide 31 (21-32) mmol/L Anion Gap 7 (3-11) BUN 16 (6-23) mg/dl Creatinine 0.79 (0.6-1.2) mg/dl Est Cr Clr Drug Dosing 72.6 ml/min eGFR 78.44 BUN/Creatinine Ratio 20.3 H (10-20) Glucose 107 H (70-99(Fasting)) mg/dl Lactate 1.0 (0.4-2.0) mmol/L Calcium 9.3 (8.6-10.3) mg/dl Magnesium 1.9 (1.7-2.4) mg/dl Total Bilirubin 0.7 (0.2-1.0) mg/dl Direct Bilirubin 0.1 (0-0.2) mg/dl AST 19 (13-39) U/L ALT 20 (7-52) U/L Alkaline Phosphatase 56 (34-104) U/L Troponin I High Sens 5.7 (0-14) pg/ml Total Protein 6.8 (6.0-8.3) gm/dl Albumin 4.3 (3.4-5.0) gm/dl Lipase 15 (11-82) U/L Procalcitonin < 0.02 (0-0.5) ng/ml Adenovirus (PCR) Not Detected (NotDetected) B. pertussis DNA (PCR) Not Detected (NotDetected) B.parapertussis DNA PCR Not Detected (NotDetected) C. pneumoniae DNA (PCR) Not Detected (NotDetected) Coronavirus OC43 (PCR) Not Detected (NotDetected) Coronavirus HKU1 (PCR) Not Detected (NotDetected) Coronavirus 229E (PCR) Not Detected (NotDetected) SARS-CoV-2 (PCR) DETECTED A (NotDetected) Coronavirus NL63 (PCR) Not Detected (NotDetected) Human Metapneumovir PCR Not Detected (NotDetected) Influenza Type A (PCR) Not Detected (NotDetected) Influenza Type B (PCR) Not Detected (NotDetected) M. pneumoniae (PCR) Not Detected (NotDetected) Parainfluenza 1 (PCR) Not Detected (NotDetected) Parainfluenza 2 (PCR) Not Detected (NotDetected) Parainfluenza 3 (PCR) Not Detected (NotDetected) Parainfluenza 4 (PCR) Not Detected (NotDetected) RSV (PCR) Not Detected (NotDetected) Entero/Rhino (PCR) Not Detected (NotDetected) 09/24/24 Range/Units 20:03 WBC (4.8-10.8) K/ul RBC (4.20-5.40) M/uL Hgb (12.0-16.0) g/dl Hct (37.0-47.0) % MCV (80.0-100.0) fL MCH (25.0-34.0) pg MCHC (32.0-36.0) g/dL RDW Std Deviation (36.4-46.3) fL RDW Coeff of Vito (11.5-14.5) % Plt Count (130-400) K/uL MPV (9.4-12.4) fL Immature Gran % (Auto) % Neut % (Auto) % Lymph % (Auto) % [place] % (Auto) % Eos % (Auto) % Baso % (Auto) % Neut # (Auto) (1.40-6.50) K/uL Lymph # (Auto) (1.20-3.40) K/uL [place] # (Auto) (0.11-0.59) K/uL Eos # (Auto) (0.00-0.50) K/uL Baso # (Auto) (0.00-0.20) K/uL Immature Gran # (Auto) (0.01-0.20) K/uL PT (9.0-12.0) Seconds INR (0.9-1.1) APTT (21-31) Seconds PTT Ratio VBG pH 7.41 (7.36-7.41) VBG pCO2 41 (38-50) mmHg VBG pO2 58 mmHg VBG HCO3 26 mmol/L VBG O2 Saturation 89.6 % VBG Base Excess 1.2 mEq/L Sodium (136-145) mmol/L Potassium (3.5-5.1) mmol/L Chloride (98-107) mmol/L Carbon Dioxide (21-32) mmol/L Anion Gap (3-11) BUN (6-23) mg/dl Creatinine (0.6-1.2) mg/dl Est Cr Clr Drug Dosing ml/min eGFR BUN/Creatinine Ratio (10-20) Glucose (70-99(Fasting)) mg/dl Lactate (0.4-2.0) mmol/L Calcium (8.6-10.3) mg/dl Magnesium (1.7-2.4) mg/dl Total Bilirubin (0.2-1.0) mg/dl Direct Bilirubin (0-0.2) mg/dl AST (13-39) U/L ALT (7-52) U/L Alkaline Phosphatase (34-104) U/L Troponin I High Sens (0-14) pg/ml Total Protein (6.0-8.3) gm/dl Albumin (3.4-5.0) gm/dl Lipase (11-82) U/L Procalcitonin (0-0.5) ng/ml Adenovirus (PCR) (NotDetected) B. pertussis DNA (PCR) (NotDetected) B.parapertussis DNA PCR (NotDetected) C. pneumoniae DNA (PCR) (NotDetected) Coronavirus OC43 (PCR) (NotDetected) Coronavirus HKU1 (PCR) (NotDetected) Coronavirus 229E (PCR) (NotDetected) SARS-CoV-2 (PCR) (NotDetected) Coronavirus NL63 (PCR) (NotDetected) Human Metapneumovir PCR (NotDetected) Influenza Type A (PCR) (NotDetected) Influenza Type B (PCR) (NotDetected) M. pneumoniae (PCR) (NotDetected) Parainfluenza 1 (PCR) (NotDetected) Parainfluenza 2 (PCR) (NotDetected) Parainfluenza 3 (PCR) (NotDetected) Parainfluenza 4 (PCR) (NotDetected) RSV (PCR) (NotDetected) Entero/Rhino (PCR) (NotDetected) Imaging Data Attestation: I personally reviewed and interpreted this imaging study as follows: My Impression: Chest x-ray negative. Airway clear. No pneumothorax. No consolidation. No cardiomegaly or cephalization.. No free air under the diaphragm. No fractures of the skeletal structures. ECG Data Attestation: I personally reviewed and interpreted this ECG as follows: Interpretation: Paced rhythm with rate of 85. QRS 140 QTc 428. PVCs present. [facility] Narrative 1925: The patient was evaluated in room A4. A complete history and physical exam was performed Cardiac monitoring: An order was placed for continuous cardiac monitoring. The monitor shows a rate of 80 with paced rhythm interpreted by me 1954: Patient's oxygen saturation going down to 89% on room air. Supplemental oxygen was applied via nasal cannula to improve the patient's oxygen saturation. 2039: Vital signs stable on supplemental oxygen via nasal cannula. Blood work unremarkable. Patient is COVID-positive. Patient treated with Decadron 6 mg IV [facility]. Impression & Plan COVID-19, Hypoxia Critical Care Time Critical Care Time: Yes Total Critical Care Time: 47 I have personally spent greater than 47 minutes of critical care time in the direct management of this patient. This includes bedside care, interpretation of diagnostic studies, and testing, discussion with consultants, patient, and family members, and other required patient management activities. This 47 minutes is in excess of all separately billable procedures. Discharge Plan Visit Data Chief Complaint: Flu Like Symptoms Stated Complaint: Flu Like Symptoms ED Provider: Chip Bush Discharge Problem: COVID-19, Hypoxia Patient Disposition: Admitted As Inpatient Forms Stand Alone Forms: My [facility] Prescriptions Prescriptions: No Action (DME) OneTouch Ultra Blue Test Strip Strip See Rx Instructions .ROUTE .MEDSUPPLY Qty: 100 5RF Rx Instructions: Please test once in the morning and once throughout day sertraline 100 mg tablet 150 mg PO QAM Qty: 45 11RF nitroglycerin 0.4 mg tablet, sublingual 0.4 mg SL Q5M PRN (Reason: Chest Pain) Metamucil 3.4 gram/5.4 gram powder 1 tbs PO DAILY PRN (Reason: Constipation) cholecalciferol (vitamin D3) 25 mcg (1,000 unit) capsule 2,000 unit PO QAM multivitamin Tablet 1 tab PO QAM levothyroxine 50 mcg tablet 50 mcg PO DAILY Qty: 30 5RF Rx Instructions: DOSE CHANGE 04/04/22 Take 1.5 tablets every other day alternating with 1 tablet daily hydrochlorothiazide 25 mg tablet 25 mg PO DAILY Hold Instructions: Hold for 2 days and then resume Jardiance 10 mg tablet 10 mg PO DAILY atorvastatin 20 mg tablet 20 mg PO HS lorazepam 1 mg Tablet 1 mg PO Q8H PRN (Reason: Anxiety) metoprolol succinate 25 mg tablet extended release 24 hr 25 mg PO QAM metformin 500 mg tablet extended release 24 hr 500 mg PO QPM trazodone 50 mg tablet 25 mg PO QPM PRN (Reason: Sleep) Eliquis 5 mg tablet 5 mg PO BID potassium chloride 20 mEq tablet,ER particles/crystals 20 meq PO BID prednisone 5 mg tablet 5 mg PO DAILY metoprolol succinate 50 mg tablet extended release 24 hr 50 mg PO QPM prednisone 1 mg tablet 3 mg PO DAILY sertraline 100 mg tablet 150 mg PO DAILY aspirin 81 mg Tablet,Delayed Release (Dr/Ec) 81 mg PO DAILY Referrals Referrals: Dylan Barros MD [Primary Care Provider] -
[2024-09-24 20:36] LABS: Adenovirus PCR Not Detected (NotDetected); Bordetella parapertussis PCR Not Detected (NotDetected); Bordetella pertussis PCR Not Detected (NotDetected); Chlamydia pneumoniae PCR Not Detected (NotDetected); Coronavirus 229E PCR Not Detected (NotDetected); Coronavirus CoV-2 (COVID19)PCR DETECTED (NotDetected); Coronavirus HKU1 PCR Not Detected (NotDetected); Coronavirus NL63 PCR Not Detected (NotDetected); Coronavirus OC43PCR Not Detected (NotDetected); Human Metapneumovirus PCR Not Detected (NotDetected); Influenza A PCR Not Detected (NotDetected); Influenza B PCR Not Detected (NotDetected); Mycoplasma pneumoniae PCR Not Detected (NotDetected); Parainfluenza Virus 1 PCR Not Detected (NotDetected); Parainfluenza Virus 2 PCR Not Detected (NotDetected); Parainfluenza Virus 3 PCR Not Detected (NotDetected); Parainfluenza Virus 4 PCR Not Detected (NotDetected); Respiratory Syncytial VirusPCR Not Detected (NotDetected); Rhinovirus/Enterovirus PCR Not Detected (NotDetected)
--- NOTE | 2024-09-24 20:58 | History & Physical Report ---
Date of Service September 24, 2024 Assessment & Plan (1) COVID-19: (2) Acute hypoxic respiratory failure: (3) PMR (polymyalgia rheumatica): (4) PAF (paroxysmal atrial fibrillation): (5) Tachy-luis syndrome: (6) Hypertension: (7) Hypothyroidism: (8) Depression with anxiety: Plan: Full Code as per discussion with pt, however reports if poor prognosis would not want prolonged ventilator support Assessment and Plan per Dr Deluna. See addendum. History of Present Illness Chief Complaint: flu like symptoms Primary Care Provider: Dylan Barros MD Patient is 74-year-old female with PMH HTN, dyslipidemia, DM II, atrial fibrillation anticoagulated on Eliquis, SSS s/p pacemaker, PMR on prednisone, hypothyroidism, INEZ, depression presented to ER with c/o flu like symptoms. Patient states last night started with productive cough, unclear of coloration as she has not checked. Reports fever of 100F, chills, headache, myalgias, fatigue and nasal congestion. Today with nausea and decreased appetite. Today feeling wheezy, chest tightness and SOB. Denies diarrhea or abdominal pain. Reports started with cough and flulike symptoms last night as well. Patient has been on prednisone for months and is on a very slow taper. She currently is on 8 mg daily for 4 weeks and next week is supposed to decrease to 7 mg daily for 4 weeks. Seen at urgent care today and found to have pulse ox of 88-90% on RA and referred to ER. Denies dizziness, syncope, vision changes, neck pain, palpitations, hemoptysis, extremity edema, rashes, urinary symptoms. Allergies Allergy/AdvReac Type Severity Reaction Status Date / Time citalopram [From Celexa] Allergy Unknown Unknown Verified 06/29/24 14:36 Sulfa (Sulfonamide Allergy Unknown UNKNOWN Verified 06/29/24 14:36 Antibiotics) albuterol AdvReac Intermediate racing Verified 06/29/24 14:36 heart Home Medications Medication Instructions Recorded Confirmed Type nitroglycerin 0.4 mg sublingual 0.4 mg sublingual Q5M PRN Chest 07/26/19 09/24/24 History tablet Pain psyllium husk 3.4 gram/5.4 gram 1 tbs PO DAILY PRN Constipation 03/10/20 09/24/24 History oral powder (Metamucil) atorvastatin 20 mg tablet 20 mg PO HS 03/19/20 09/24/24 History lorazepam 1 mg tablet 1 mg PO Q8H PRN Anxiety 03/21/20 09/24/24 History hydrochlorothiazide 25 mg tablet 25 mg PO DAILY 06/01/20 09/24/24 History cholecalciferol (vitamin D3) 25 2,000 unit PO QAM 01/04/21 09/24/24 History mcg (1,000 unit) capsule multivitamin 1 tab PO QAM 01/04/21 09/24/24 History blood sugar diagnostic (OneTouch #100 ea 01/08/21 09/24/24 Rx Ultra Blue Test Strip) levothyroxine 50 mcg tablet 50 mcg PO DAILY #30 tabs 04/04/22 09/24/24 Rx sertraline 100 mg tablet 150 mg (1.5 x 100 mg) PO QAM #45 04/16/22 09/24/24 Rx tabs apixaban 5 mg tablet (Eliquis) 5 mg PO BID 02/26/24 09/24/24 History metformin 500 mg tablet,extended 500 mg PO QPM 02/26/24 09/24/24 History release 24 hr metoprolol succinate 25 mg 25 mg PO QAM 02/26/24 09/24/24 History tablet,extended release 24 hr trazodone 50 mg tablet 25 mg PO QPM PRN Sleep 02/26/24 09/24/24 History empagliflozin 10 mg tablet 10 mg PO DAILY 06/29/24 09/24/24 History (Jardiance) potassium chloride 20 mEq 20 meq PO BID 06/29/24 09/24/24 History tablet,extended release(part/cryst) aspirin 81 mg tablet,delayed 81 mg PO DAILY 09/24/24 09/24/24 History release metoprolol succinate 50 mg 50 mg PO QPM 09/24/24 09/24/24 History tablet,extended release 24 hr prednisone 1 mg tablet 3 mg PO DAILY 09/24/24 09/24/24 History prednisone 5 mg tablet 5 mg PO DAILY 09/24/24 09/24/24 History sertraline 100 mg tablet 150 mg PO DAILY 09/24/24 09/24/24 History Past Med/Surg History Problem List (Updated 09/24/24 @ 22:12 by Chip Bush MD) Hypoxia (Acute) PAF (paroxysmal atrial fibrillation) Acute hypoxic respiratory failure COVID-19 (Acute) Atrial flutter with rapid ventricular response (Acute) Low magnesium level (Acute) Hypokalemia (Acute) Atrial fibrillation/flutter (Acute) Tachy-luis syndrome Depression CAD (coronary artery disease) PMR (polymyalgia rheumatica) Cardiac pacemaker in situ (Acute) Hypomagnesemia Bradycardia Encounter for examination following treatment at hospital H/O atrial fibrillation without current medication Abnormal thyroid function test Unsteady gait when walking Poor balance Decreased hearing of both ears Inflamed seborrheic keratosis Skin tag Abnormal skin growth Multiple pulmonary nodules determined by computed tomography of lung Obstructive sleep apnea (adult) (pediatric) External hemorrhoids Iron deficiency anemia Nasal congestion Abnormal CT of the chest Multiple pulmonary nodules Diabetes mellitus Lumbar radicular pain Periumbilic rebound abdominal tenderness Anxiety Insomnia (Acute) Abnormal CT of the chest Atrial fibrillation with rapid ventricular response (Acute) Elevated liver enzymes (Acute) Thrombocytopenia (Acute) Neutropenia (Acute) Allergic rhinitis (Acute) Arthritis (Acute) CAD in [place] artery (Acute) Depression with anxiety (Chronic) Encounter for long-term (current) use of medications (Acute) Osteopenia (Acute) GERD (gastroesophageal reflux disease) Left bundle branch block (Acute) Hypothyroidism (Chronic) Hypertension (Chronic) Hyperlipidemia (Chronic) Nasal vestibulitis Medical History GIB (gastrointestinal bleeding) Anaplasmosis Infected lesion in nose Concussion Hemorrhoids History of coronary artery disease Surgical History History of esophagogastroduodenoscopy (EGD) 02/22/21 Dr. Pablo Mckay S/P colonoscopy 02/26/21 Dr. Pablo Mckay History of bilateral oophorectomy History of hernia surgery History of back surgery Hx of hysterectomy H/O cardiac catheterization Family History Father Hypertension Heart disease Mother Stroke Other Breast cancer Myocardial infarction No family history of adverse response to anesthesia No family history of bleeding disorder Denies family history of Ovarian cancer Prostate cancer Colorectal cancer Social History Smoking Status: Unknown if ever smoked Second Hand Exposure: No; Do You Dip or Chew Tobacco: No; Hx Alcohol Use: No Hx Substance Use: No Preferred Language: Lithuanian Communication Ability: Effective Manager Engine Required: No Beliefs That Will Affect Care: None marital status: Current Living Situation: Spouse current occupational status: retired How many Children do You have: 3 Feels Safe at Home: Yes caffeine: Yes Dental Care, Regularly: Yes Physical Activity Frequency: 1-2 Times per Week Seatbelt Use: always Sunscreen Use: Yes Assistive Devices: CPAP Review of Systems Review of Systems: All systems reviewed & are unremarkable except as noted in HPI & below Physical Exam Physical Exam: General: no acute distress, WDWN Head: normocephalic, atraumatic Eyes: conjunctiva non-injected, anicteric ENT: normal inspection external ears, nose, mucous membranes mildly dry Neck: supple, trachea midline, ROM intact Lungs: ccarse breath sounds throughut, 96% on 2L O2 via NC, R: 20. able to speak in sentences CV: RRR, no pretibial edema Abd: normal BS, soft, non-tender Ext: no cyanosis, no calf tenderness Neuro: A&O x 3, no focal deficits noted, normal affect Skin: warm, dry Results & Data Results & Data Vital Signs (Past 12 Hours) Vital Signs Temp Pulse Pulse Resp BP BP Pulse Ox 09/24/24 20:06 60 22 107/62 95 09/24/24 19:55 118/64 09/24/24 19:54 60 21 95 09/24/24 19:53 96 09/24/24 19:52 89 L 09/24/24 19:51 60 21 118/64 95 09/24/24 19:51 60 21 118/64 95 09/24/24 19:42 65 19 91 09/24/24 19:37 129/65 09/24/24 19:36 62 22 93 09/24/24 19:36 60 24 129/65 92 09/24/24 19:36 60 92 09/24/24 19:26 38.1 C H 65 25 H 175/121 H 93 09/24/24 19:24 84 O2 Del Method O2 Flow Rate 09/24/24 20:06 Nasal Cannula 2 09/24/24 19:55 09/24/24 19:54 09/24/24 19:53 Nasal Cannula 2 09/24/24 19:52 Room Air 09/24/24 19:51 Nasal Cannula 2 09/24/24 19:51 09/24/24 19:42 09/24/24 19:37 09/24/24 19:36 09/24/24 19:36 Room Air 09/24/24 19:36 Room Air 09/24/24 19:26 Room Air 09/24/24 19:24 Laboratory Results Short CBC 09/24/24 Range/Units 19:28 WBC 5.96 (4.8-10.8) K/ul Hgb 13.2 (12.0-16.0) g/dl Hct 40.7 (37.0-47.0) % Plt Count 132 (130-400) K/uL BMP 09/24/24 19:28 Sodium 138 Potassium 3.5 Chloride 100 Carbon Dioxide 31 BUN 16 Creatinine 0.79 Glucose 107 H Calcium 9.3 Liver Function 09/24/24 Range/Units 19:28 Total Bilirubin 0.7 (0.2-1.0) mg/dl Direct Bilirubin 0.1 (0-0.2) mg/dl AST 19 (13-39) U/L ALT 20 (7-52) U/L Alkaline Phosphatase 56 (34-104) U/L Albumin 4.3 (3.4-5.0) gm/dl Supervising Physician Co-Signing Physician Notes IM ATTENDING : Patient seen and examined. History obtained from patient and records. Concur with salient points upon review of preceding documentation by Ms. Rhiannon Edouard PA-C. I take responsibility for plan of care below. In addition Head CT negative for acute intracranial abnormality.. FINAL ASSESSMENT AND PLAN as follows : Acute hypoxemic respiratory failure secondary to severe COVID-19 pneumonia SSS status post PPM on Eliquis Nonobstructive CAD as per records History LBBB Hypertension elevated secondary to illness INEZ on CPAP History lung nodules, patient follows with [facility] pulmonology DM2 insulin requiring well-controlled as of recent outpatient hemoglobin A1c of 6.7 this month Hypothyroidism, euthyroid as of recent outpatient TSH PMR on chronic steroid Rx Anxiety/mood disorder, mild anxiety during exam Admit to medical telemetry Supplemental O2 Decadron and Remdesivir for severe COVID-19 pneumonia (Resume home prednisone Rx for PMR once Decadron dose completed.) No indication for antibiotics for now. Pulmonology consulted without improvement Facilitate nighttime BP meds and titrate as needed Basal bolus insulin, ISS BG goal 1 10-1 40, carb count coverage DVT prophylaxis. Eliquis Full code Text document was generated using [employer] voice recognition software. It may contain grammatical or spelling errors. Kindly contact undersigned for clarification of any documentation item in question.
[2024-09-24] MEDS: DEXAMETHASONE SOD INJ 4 MG/ML VIAL IV STA (21:02)
[2024-09-24] MEDS: MAGNESIUM SULFATE / D5W 1 GM/100 ML BAG IV ONE (21:02)
[2024-09-24] MEDS: IPRATROPIUM BROMIDE NEB SOLN 0.02% 0.5MG/2.5ML VIAL INH STA (21:29)
[2024-09-24] MEDS: LEVALBUTEROL 1.25 MG/3 ML NEB NEB STA (21:29)
[2024-09-24] MEDS: ALBUT/IPRATROP 3MG/0.5MG NEB 3 ML VIAL NEB STA (21:32)
[2024-09-24] MEDS ORDERED: LORazepam 1 MG TAB PO PRN (21:53)
[2024-09-24] MEDS: METOPROLOL SUCC 50MG EXT REL TAB PO STA (22:42)
--- NOTE | 2024-09-24 22:58 | CT Scan Report ---
Exam(s): CT HEAD Without Contrast EXAM: CT Head Without Intravenous Contrast CLINICAL HISTORY: Reason for exam: lopez, eliquis. TECHNIQUE: Axial computed tomography images of the head/brain without intravenous contrast. CTDI is 35.65 mGy and DLP is 625.8 mGy-cm. Automated exposure control was utilized for the study. A dose lowering technique was utilized adhering to the principles of ALARA. COMPARISON: 07/22/2019 FINDINGS: Brain: Unremarkable. No hemorrhage. No significant white matter disease. No edema. Ventricles: Unremarkable. No ventriculomegaly. Bones/joints: Unremarkable. No acute fracture. Soft tissues: Unremarkable. Sinuses: Unremarkable as visualized. No acute sinusitis. Mastoid air cells: Unremarkable as visualized. No mastoid effusion. IMPRESSION: Head CT negative for acute intracranial abnormality.. Electronically signed by: Boris Ellington MD 09/24/24 22:57 PM
[2024-09-24] MEDS ORDERED: NITROGLYCERIN SL 0.4 MG/TAB TAB SL PRN (23:05)
[2024-09-24] MEDS ORDERED: ACETAMINOPHEN 325 MG TAB PO PRN (23:06)
[2024-09-24] MEDS ORDERED: oxyCODONE HCL IR 5 MG TAB (IMMEDIATE RELEASE) PO PRN (23:06)
[2024-09-24] MEDS ORDERED: PROMETHAZINE 6.25 MG/50.25 ML BAG IV PRN (23:06)
[2024-09-24 23:07] LABS: Appearance Urine Cloudy (Clear); Bacteria Urine Automated None Seen (None Seen); Bilirubin Urine Negative (Negative); Blood Urine Trace (Negative); Cast Urine Automated 0-2 /lpf (0-2); Color Urine Yellow; Glucose Urine UA 3+ (Negative); Ketones Urine Trace (Negative); Leukocyte Esterase Urine Negative (Negative); Nitrite Urine Negative (Negative); Protein Urine Negative (Negative); RBC Urine Automated 0-2 /hpf (0-2); Specific Gravity Urine 1.011 (1.000-1.030); Urobilinogen Urine Negative (Negative); WBC Urine Automated 0-5 /hpf (0-5)
[2024-09-24] MEDS ORDERED: traZODone HCL 50 MG TAB PO PRN (23:10)
[2024-09-24] MEDS ORDERED: PSYLLIUM or GUAR GUM FIBER 4GM PACKET PO PRN (23:14)
--- NOTE | 2024-09-24 23:16 | XRay Report ---
Exam(s): XR CXR 1 VIEW EXAM: XR Chest, 1 View CLINICAL HISTORY: Reason for exam: Sepsis. TECHNIQUE: Frontal view of the chest. COMPARISON: February 26, 2024 FINDINGS: Lungs: Linear atelectasis left lower lobe. Pleural space: Unremarkable. No pneumothorax. Heart: Unremarkable. No cardiomegaly. Mediastinum: Unremarkable. Normal mediastinal contour. Bones/joints: Unremarkable. No acute fracture. Tubes, lines and devices: Left chest wall dual lead intracardiac device. IMPRESSION: No acute findings in the chest. Electronically signed by: Boris Ellington MD 09/24/24 23:15 PM
[2024-09-24] MEDS: REMDESIVIR 200 MG in SODIUM CHLORIDE 0.9% 210 ML IV STA (23:40)
[2024-09-25] MEDS: APIXABAN 5 MG TABLET PO SCH (01:15)
[2024-09-25] MEDS: ATORVASTATIN 20 MG TAB PO SCH (01:15)
[2024-09-25] MEDS ORDERED: CARBOHYDRATES FOR HYPOGLYCEMIA PO PRN (02:01)
[2024-09-25] MEDS ORDERED: GLUCOSE 40% GEL 15 GM TUBE PO PRN (02:01)
[2024-09-25] MEDS ORDERED: GLUCOSE 10 TAB/TUBE PO PRN (02:01)
[2024-09-25] MEDS ORDERED: GLUCAGON FOR INJ 1 MG VIAL SQ PRN (02:01)
[2024-09-25] MEDS ORDERED: DEXTROSE 50% 50 ML SYRINGE IV PRN (02:01)
--- OUTSIDE RECORDS SUMMARY | 2024-09-25 02:03 | External Medical Summary | Summary of Care ---
Author Name Unknown Organization [facility] Address [address] [place] [address] Phone [phone] Care Team Providers Care Cabin Cleaning Supervisor Name Role Phone Dylan Barros MD Primary Care Provider [phone] Reason for Visit * Reason Onset Date Comments Medication Refill 09/22/2024 Encounter Details Date Type Department Care Team (Late st Contact Info) Description 09/22/2024 Ref[address] Cardiology, [facility] [address] [place] [address] Dai Scott, TRA[place] [address] [place] [phone] Paroxysmal atrial fibrillation (HCC) Allergies Active Allergy Reactions Criticality Noted Date Comments Albuterol High 04/04/2022 Other reaction(s): racing heart Citalopram 04/04/2022 Other reaction(s): Unknown Sulfa Antibiotics Hives Medium 07/07/2000 documented as of this encounter (statuses as of 09/24/2024) Medications MULTIVITAMINS PO TABS 1 tablet daily [...] bedtime. 180 Tablet 3 03/10/20 24 Active Guardly Verio w/Device Kit Use up to 4 times a day E11.9 1 Kit 03/23/20 24 Active predniSONE 10 MG Oral Tablet (Deltasone)Indic ations:PMR (polymyalgia rheumatica) (FORM[facility]) Take 1 Tablet by mouth in the morning. 90 Tablet 04/09/20 24 Active Additional Information Patient not taking.Reported on 09/21/2024 predniSONE 2.5 MG Oral Tablet (Deltasone)Indic ations:PMR (polymyalgia rheumatica) ([facility]) Take 1 Tablet by mouth in the [...] bedtime. 90 Tablet 1 06/14/20 24 Active Levothyroxine Sodium 50 MCG Oral [...] A1c goal of less than 7.0% ([facility]) Take 1 Tablet by mouth daily. 90 Tablet 3 07/10/20 24 Active OneTouch Ultra Test In Vitro Strip (Glucose Blood)Indication s:Type 2 diabetes mellitus with hemoglobin A1c goal of less than 7.0% ([facility]) Use to check blood sugars once per [...] the morning. 90 Tablet 09/06/20 24 Active Metoprolol Succinate ER 25 MG Oral Tablet Extended Release 24 Hour (toPROL XL)Indications:P aroxysmal atrial fibrillation (HCC) Take 1 Tablet by mouth in the morning. This is in addition to the 50 mg tablet daily. 90 Tablet 3 09/24/20 24 Active Metoprolol Succinate ER 25 MG Oral Tablet Extended Release 24 Hour (toPROL XL)Indications:P aroxysmal atrial fibrillation (HCC) Take 1 Tablet by mouth in the morning. This is in addition to the 50 mg tablet daily. 90 Tablet 3 06/15/20 24 024 Discontin ued(Refil l) documented as of this encounter (statuses as of 09/24/2024) Active Problems Problem Noted Date Diagnosed Date [...] AHI was 17.1 DME: [facility] [place] Titration study 04/27/12 set pressure of 8 cm HTN, goal below 130/80 01/09/2011 Chronic coronary artery disease 09/15/2010 Overview (09/15/2010): Cath 2006 - 30% mid LAD stenosis Dyslipidemia, goal LDL below 70 09/15/2010 documented as of this encounter (statuses as of 09/24/2024) Resolved Problems Problem Noted Date Diagnosed Date Resolved Date Obstructive sleep apnea 11/28/201101/26 Overview (11/28/2011): AHI 8..2 in April 2008 documented as of this encounter (statuses as of 09/24/2024) Immunizations Name Administration Dates Next Due COVID-19 mRNA, LNP-s, No Pre serve, 2-Dose Series (Moderna) 12/24/2020,11/19/2020 COVID-19, mRNA, LNP-s, PF, B ooster, 100mcg/0.5mg (Moderna) 08/18/2021 Covid-19, Mrna, Lnp-s, Pf, B ivalent, 30 Mcg, IM, 12 yrs and above (Pfizer) 08/01/2022 DT - Diptheria/Tetanus (PEDS) 06/06/2005 Pneumococcal Conjugate Vacc, 13 Valent (Prevnar) 12/13/2015 Pneumococcal Conjugate Vacci ne, 20-valent (Nobtwgw23) 09/21/2024 Pneumococcal Polysaccharide PPV23 (Pneumovax) 08/22/2014 Seasonal [...] 01/06/2024 Does the household have a re lar source of income? (Household - for ages [...] PM EDT documented as of this encounter Miscellaneous Notes * Telephone Encounter - Carole Vaughan [facility] - 09/24/2024 9:34 PM EST Signed Prescriptions: Disp Refills Metoprolol Succinate ER 25 MG Oral Tablet *90 Tab*3 Sig: Take 1 Tablet by mouth in the morning. This is in addition to the 50 mg tablet daily. Authorizing Provider: DAI SCOTT Ordering User: CAROLE VAUGHAN * Telephone Encounter - Jody Thayer - 09/22/2024 10:20 PM ESTPending Prescriptions: Disp Refills Metoprolol Succinate ER 25 MG Oral Tablet *90 Tab*3 Sig: Take 1 Tablet by mouth in the morning. This is in addition to the 50 mg tablet daily. * Telephone Encounter - Jody Thayer - 09/22/2024 10:19 PM EST Did you pend patient's preferred pharmacy and medication before forwarding?yes Pharmacy: [facility] [address] Pending Prescriptions: Disp Refills Metoprolol Succinate ER 25 MG Oral Tablet*90 Tab*3 Sig: Take 1 Tablet by mouth in the morning. This is in addition to the 50 mg tablet daily. Last Visit: 04/27/2024 (in office), Visit date not found (telemedicine) Next Visit: 10/22/2024 If no future appointments scheduled, and last appointment is greater than a year ago, please schedule patient for a follow-up appointment Last date the medication was ordered: 06/15/2024 Is this request for a controlled substance?No Urine Drug Screen:No results found for this or any previous visit. Patient Phone Numbers Labs: Lab Results Component Value Date/Time CREAT 0.8 09/21/2024 08:56 AM CREAT 0.8 07/11/2020 08:32 AM POTASSIUM 3.8 09/21/2024 08:56 AM POTASSIUM 4.3 07/11/2020 08:32 AM TSH 2.97 09/21/2024 08:56 AM TSH 2.15 04/19/2020 12:21 PM LDL 55 09/21/2024 08:56 AM LDL 51 07/11/2020 08:32 AM LDL NOT APPLICABLE 07/11/2020 08:32 AM LDLCALC 66 11/11/2015 12:00 AM ALT 24 09/21/2024 08:56 AM ALT 14 07/11/2020 08:32 AM HGBA1C 6.7 (H) 09/21/2024 08:56 AM HGBA1C 6.4 (A) 07/09/2021 12:00 AM documented in this encounter Plan of Treatment Upcoming Encounters Date Type Department Care Team (Late st Contact Info) Description 10/22/2024 8:45 AM EST Office Visit Cardiology, [facility] [address] [place] [phone] Nora Antonio, [address] [facility] [place] [address] 12/14/2024 9:30 AM EST Office Visit Cardiology, [facility] [address] [place] [phone] Dai Scott, [place] [address] [facility] [place] [address] 01/20/2025 10:40 AM EDT Telemedicine Rheumatology, [place] [address] [place] [address] Tessa Duque, [address] [place] [address] 03/24/2025 9:40 AM EDT Office Visit Family Practice, [facility] [place] [address] [place] [phone] Dylan Barros MD [address] [place] [address] 04/01/2025 11:20 AM EDT Office Visit [facility] [address] [place] [phone] Riddhi Cook, [address] [place] [id number] Scheduled Procedures Name Priority Associated Diagnoses Date/Ti me COLONOSCOPY FLEXIBLE PROXIMA L DIAGNOSTIC Recall History of colonic polyps Health Maintenance Due Date Last Done Comments Cologuard 1995 Sigmoidoscopy 1995 Fecal Occult Blood Test 07/07/2001 07/07/2000 Adult Wellness Visit 2016 COVID-19 Vaccine ( season) 2024 08/01/2022, 08/18/2021, 12/24/2020, Additional history exists Albumin/Creatinine Ratio 07/08/2024 07/08/2023, 080 06/2022 Mammogram 01/19/2025 01/20/2024, 12/26, 07/15/2001 HbA1c 03/21/2025 09/21/2024, 05/0 03/2024, 07/08/2023, Additional history exists DXA Scan 04/30/2025 04/30/2018 Depression Monitoring 06/14/2025 06/14/2024 DTap/Tdap Vaccines (3 - Td or Tdap) 07/18/2025 07/18/2015, 06/06/2005 Diabetic Eye Exam 09/17/2025 09/17/2024 (Do ne elsewhere), 09/15/2023, 08/29/2022 GFR 09/21/2025 09/21/2024, 2 01/2024, 03/08/2024, Additional history exists TSH 09/21/2025 09/21/2024, 12/25, 07/08/2023, Additional history exists Colonoscopy 01/14/2027 01/15/2024, 12/26, 02/26/2021 Colorectal Cancer [...] this encounter Medical Devices Implanted Type Area Specialties Operator Device Identifier Shelf Expiration Date Model / Serial / Lot Lead Pace [id number] [id number] - [id number] Implanted:Qty: 1 on 11/18/2022 by Nora Antonio DO at OR [facility] Lead Left: Heart [employer] : [facility] 10/18/2024 [id number] / / Description:RV LBBB Lead Novus Bipolar 52cm - [id number] - [id number] Implanted:Qty: 1 on 11/18/2022 by Nora Antonio DO at OR [facility] Lead Left: Heart [employer] : [facility] 09/23/2024 [id number] / [id number] / Description:RA Pacemaker Kinross Xt Dr Banks Wrls - [id number] - [id number] Implanted:Qty: 1 on 11/18/2022 by Nora Antonio DO at OR [facility] Pacemaker Left: Chest [employer] 04/09/2024 [id number] / [id number] / Lens Intraoc 26.5 - [id number] - [id number] Implanted:Qty: 1 on 02/23/2019 by Jonas Valentino MD at OR [facility] Right: Eye [employer] 05/26/2023 [id number] / [id number] / [id number] Lens Intraoc 24.5 - [id number] - [id number] Implanted:Qty: 1 on 03/02/2019 by Jonas Valentino MD at OR [facility] Left: Eye [employer] 08/26/2023 [id number] / [id number] / [id number] Envelope Antibacterial Tyrx - [id number] Implanted:Qty: 1 on 11/18/2022 by Nora Antonio DO at OR [facility] [employer] : [id number] 08/09/2023 [facility] [id number] / / [id number] documented as of this encounter Visit Diagnoses Diagnosis Paroxysmal atrial fibrillation (HCC) Atrial fibrillation documented in this encounter Advance Directives * Full Code (Latest Code Status on File) Date Activated Date Inactivated Comments 04/05/2021 7:37 AM 04/05/2021 4:11 PM This order r eflects the patients wishes and were consensually agreed upon. Question Answer Comments Discussion of Advance Directives occurred with: Not Discussed Care Teams Cabin Cleaning Supervisor Relationship Specialty Start Date End Date Dylan Barros MD [address] [place] [address] PCP - General Family Medicine 11/07/23 documented as of this encounter
--- OUTSIDE RECORDS SUMMARY | 2024-09-25 02:04 | External Medical Summary | Summary of Care ---
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 Name Role Phone Dylan Barros MD Primary Care Provider [phone] Reason for Visit * Reason Onset Date Comments Cold Symptoms Congestion Cough Respiratory Infection 09/24/2024 Encounter Details Date Type Department Care Team (Latest Contact Info) Description 09/24/2024 6:15 PM EST Convenient Care Visit [facility] [address] [place] [address] Shaggy Jorge PA-C [address] [place] [address] [place] [address] Acute hypoxic respiratory failure (HCC)*; Acute cough; SOB (shortness of breath); Flu-like symptoms Allergies Active Allergy Reactions Criticality Noted Date [...] before bedtime. 180 Tablet 3 4 Active [employer] Verio w/Device Kit Use up to 4 [...] Oral Tablet (Deltasone)Indic ations:PMR (polymyalgia rheumatica) ([facility]) Take 1 Tablet by mouth in [...] AHI was 17.1 DME: [facility], [place] Titration study 04/27/12 set pressure of 8 [...] (Prevnar) 12/13/2015 Pneumococcal Conjugate Vacci ne, 20-valent ([id number]) 09/21/2024 Pneumococcal Polysaccharide PPV23 (Pneumovax) 08/22/2014 Seasonal [...] Sign Reading Time Taken Comments Blood Pressure 120/64 09/24/2024 6:42 PM EST Pulse 61 09/24/2024 6:33 PM EST Temperature 38 C (100.4 F) 09/24/2024 6:33 PM EST Respiratory Rate 92 09/24/2024 6:42 PM EST Oxygen Saturation 90% 09/24/2024 6:33 PM EST Inhaled Oxygen Concentration - - Weight - - Height 160 cm (5' 3") 09/24/2024 6:33 PM EST Body Mass Index - - documented in this encounter Progress Notes * Shaggy Jorge PA-C - 09/24/2024 6:58 PM EST Nursing Notes: Anum Simon LPN 09/24/24 1843 Signed Ángel Kim is a 74 year old female who presents to walk-in clinic today complaining of Chief Complaint Patient presents with Cold Symptoms Congestion Cough Onset/duration symptoms started 1-2 days ago. Patient is accompanied by spouse and daughter for today's visit. Ángel Kim is a 74 year old female with a PMH of Afib on Eliquis, DM, INEZ, SSS, LBBB, HTN, pulmonary nodules who presents with upper and lower respiratory symptoms for 2 day(s) Patient was accompanied by Spouse. HPI She was around someone with cough and cold symptoms in a car 3 or so days ago For the last two day she has had worsening cold and flu sx. She reports NC, rhinorrhea, PND, cough with sputum, SOB, wheezing, chest tightness. She reports ST, malaise, fatigue, f/s/ch, body aches. She reports N/V/D. She denies CP or palps. She did not take any of her daily meds today. Her last dose of Eliquis was yesterday. Severity of Symptoms: Severe Modifying Factors (what was done since onset of symptoms):none Timing (how often does it occur): constant Quality (feels like): sob, flu has similar. ROS See HPI HISTORY Past Medical History: Diagnosis Date Anxiety Arthritis [...] years/COLONOSCOPY FLEXIBLE PROXIMAL DIAGNOSTIC performed by Denita Davila MDat ENDOSCOPY [facility] EGD, FLEXIBLE, DIAGNOSTIC 09/04/2015 gastritis/inpt [facility] HEMORRHOIDECTOMY, INTERNAL, 2 + COLUMNS N/A 05/31/2021 HEMORRHOIDECTOMY EXTERNAL AND INTERNAL COMPLEX performed by Jaky Sanches MD at OR [facility] INFORMATION 03/22/2021 Bronchoscopy. INSERT/REPLACE PACEMAKER,ATRIAL/VENTRICULAR Left 11/18/2022 NEW DDD PACEMAKER IMPLANT performed by Nora Antonio DO at OR [facility] OTHER 1994 lumbar discectomy REMOVE CATARACT, INSERT LENS PROSTH Right 02/23/2019 right EXTRACAPSULAR CATARACT REMOVAL WITH INTRAOCULAR LENS performed by Jonas Valentino MD at [facility] REMOVE CATARACT, INSERT LENS PROSTH Left 03/02/2019 left EXTRACAPSULAR CATARACT REMOVAL WITH INTRAOCULAR LENS performed by Jonas Valentino MD at OR [facility] TOTAL ABD HYSTERECTOMY W/WO REMOVAL OF TUBE(S) UMBIL HERNIA REPAIR (REDUCIBLE) AGE 5+YR Social History Tobacco Use Smoking status: Never Passive exposure: Never Smokeless tobacco: Never Substance Use Topics Alcohol use: Not Currently Vaping/E-Cigarette Use Vaping/E-Cigarette Use Never User Passive Exposure No Vaping/E-Cigarette Substances Nicotine No Other No Flavoring No THC No Cannabidiol (CBD) No Vaping/E-Cigarette Devices Disposable No Pre-filled or Refillable Cartridge No Refillable Tank No Pre-filled Pod No Current Outpatient Medications Medication Sig Dispense Refill MULTIVITAMINS PO TABS 1 tablet daily ASPIRIN 81 MG PO TABS Take by mouth at bedtime. NITROGLYCERIN 0.[address] under the tongue. 25 Tab 11 VITAMIN D3 1000 UNITS PO TABS 2 TABLETS DAILY Sertraline HCl 100 MG Oral Tablet (Zoloft) [...] bedtime. 180 Tablet 3 Metoprolol Succinate ER 50 MG [...] 1 Tablet by mouthdaily. 90 Tablet 3 hydroCHLOROthiazide 25 MG Oral Tablet (Hydrodiuril) TAKE 1 TABLET BY MOUTH EVERY MORNING 90 Tablet 0 predniSONE 5 MG Oral Tablet (Deltasone) Take 1 Tablet by mouth in the morning. 90 Tablet 0 LORazepam (ATIVAN) 1 MG Tablet One tablet every 8 hours as needed CPAP every night at bedtime. Docusate Sodium 100 MG Oral Capsule Take 1 Capsule by mouth every evening. OneTouch Verio w/Device Kit Use up to 4 times a day E11.9 1 Kit 0 predniSONE 10 MG Oral Tablet (Deltasone) Take 1 Tablet by mouth in the morning. (Patient not taking: Reported on 09/21/2024) 90 Tablet 0 predniSONE 2.5 MG Oral Tablet (Deltasone) Take 1 Tablet by mouth in the morning. (Patient not taking: Reported on 06/14/2024) 90 Tablet 0 OneTouch Ultra Test In Vitro Strip (Glucose Blood) Use to check blood sugars once per day Dx E11.9 100 Strip 5 No current facility-administered medications for this visit. Review of patient's allergies indicates: Allergen Reactions Albuterol Other reaction(s): racing heart Sulfa Antibiotics Hives Citalopram Other reaction(s): Unknown Family History Problem Relation Name Age of Onset Heart Disorder Father at 61 of [place] Stroke Mother at 78 of CVA No Past Hx Brother Killed in [place] Cancer Sister Breast Hypertension Sister Now 71 Asthma Daughter Allergies Thyroid Disorder Daughter Hypothyroidism No Past Hx Daughter OBJECTIVE BP 120/64 | Pulse 61 | Temp 38 C (100.4 F) (Tympanic) | Resp 92 | Ht 1.6 m (5' 3") | LMP 08/19/2000 | SpO2 90% | BMI 38.95 kg/m | BSA 2.11 m Wt Readings from Last 1 Encounters: 09/21/24 99.7 kg (219 lb 14.4 oz) General Appearance: awake, alert, no apparent distress HEENT: perrl and eomi tms - clear, normal light reflex, no erythema + red and irritated pharynx No sinus tenderness or facial pain to percussion + turbinate engorgement and discharge Neck: normal, supple, no adenopathy Respiratory: no rhonchi, + wheezes, and + crackles L side Heart: regular rate, regular rhythm, no murmurs , no rubs, and no gallops Skin: skin color, texture, turgor are normal, no rashes or significant lesions There are no Patient Instructions on file for this visit. ASSESSMENT AND PLAN Acute hypoxic respiratory failure (HCC) (Primary) Acute cough SOB (shortness of breath) Flu-like symptoms Pt was 88-89% on RA on arrival Now on 2L, up to 93% S/P Zofran ODT, she reports significant improvement of nausea. Suspected PNA, now with acute hypoxic respiratory failure, needing supplemental O2. Pt wishes to avoid albuterol as it throws her into Afib Patient needs further, STAT work-up and management at ER EMS called for transfer to ED. EMS arrived, report given, care transferred. Pt stable at transfer Follow Up: Return for Patient to follow up with Primary Care Provider as directed. | For: Patient to follow up with Primary Care Provider as directed Patient goals for plan of care were discussed hSaggy Jorge PA-C [address] [address] documented in this encounter Nursing Notes * Anum Simon LPN - 09/24/2024 6:39 PM EST Ángel Kim is a 74 year old female who presents to walk-in clinic today complaining of Chief Complaint Patient presents with Cold Symptoms Congestion Cough Onset/duration symptoms started 1-2 days ago. Patient is accompanied by spouse and daughter for today's visit. documented in this encounter Plan of Treatment Upcoming Encounters Date Type Department Care Team (Late st Contact Info) Description 10/22/2024 8:45 AM EST Office Visit [facility] [address] [facility] [place] [address] Nora Antonio [address] [place] [phone] 12/14/2024 9:30 AM EST Office Visit Cardiology, [facility] [address] [place] [address] Nicole Severino, TRAVIS [address] [place] [address] 01/20/2025 10:40 AM EDT Telemedicine Rheumatology, [place] [address] [place] [address] Tessa Duque, [address] [place] [address] 03/24/2025 9:40 AM EDT Office Visit [facility] [phone] Dylan Barros MD [address] [place] [address] 04/01/2025 11:20 AM EDT Office Visit [facility] [address] [place] [phone] Riddhi Cook DO [address] [place] [phone] Scheduled Procedures Name Priority Associated Diagnoses Date/Ti me COLONOSCOPY FLEXIBLE PROXIMA L DIAGNOSTIC Recall History of colonic polyps Health Maintenance Due Date Last Done Comments Cologuard 1995 Sigmoidoscopy 1995 Fecal Occult Blood Test 07/07/2001 07/07/2000 Adult Wellness Visit 2016 COVID-19 Vaccine ( season) 2024 08/01/2022, 08/18/2021, 12/24/2020, Additional history exists Albumin/Creatinine Ratio 07/08/2024 07/08/2023, 0806/2022 Mammogram 01/19/2025 01/20/2024, 12/26, 07/15/2001 HbA1c 03/21/2025 09/21/2024, 03/2024, 07/08/2023, Additional history exists DXA Scan 04/30/2025 04/30/2018 Depression Monitoring 06/14/2025 06/14/2024 DTap/Tdap Vaccines (3 - Td or Tdap) 07/18/2025 07/18/2015, 06/06/2005 Diabetic Eye Exam 09/17/2025 09/17/2024 (Do ne elsewhere), 09/15/2023, 08/29/2022 GFR 09/21/2025 09/21/2024, 02/25, 03/08/2024, Additional history exists TSH 09/21/2025 09/21/2024, 12/25, 07/08/2023, Additional history exists Colonoscopy 01/14/2027 01/15/2024, 12/26, 02/26/2021 Colorectal Cancer Screening 01/14/2027 Diabetic Foot Exam Discontinued 06/28/2022 Zoster Vaccines Completed 07/16/2023, 0 12/2022, 06/14/2015 Influenza Vaccine (FLU shot) Completed [...] this encounter Medical Devices Implanted Type Area Automatic Hemmer Device Identifier Shelf Expiration Date Model / Serial / Lot Lead Pace [id number] [id number] - [id number] Implanted:Qty: 1 on 11/18/2022 by Nora Antonio DO at OR [facility] Lead Left: Heart [employer] : CAR 10/18/2024 [id number] / / Description:RV LBBB Lead Novus Bipolar 52cm - [id number] - [id number] Implanted:Qty: 1 on 11/18/2022 by Nora Antonio DO at OR [facility] Lead Left: Heart [employer] : CRM 09/23/2024 [id number] / [id number] / Description:RA Pacemaker [place] Xt Dr Banks Wrls - [id number] - [id number] Implanted:Qty: 1 on 11/18/2022 by Nora Antonio DO at OR [facility] Pacemaker Left: Chest [employer] 04/09/2024 [id number] / [id number] / Lens Intraoc 26.5 - [id number] - [id number] Implanted:Qty: 1 on 02/23/2019 by Jonas Valentino MD at OR [facility] Right: Eye [employer] 05/26/2023 [id number] / [id number] / [id number] Lens Intraoc 24.5 - [id number] - [id number] Implanted:Qty: 1 on 03/02/2019 by Jonas Valentino MD at OR [facility] Left: Eye [employer] 08/26/2023 [id number] / [id number] / [id number] Envelope Antibacterial Tyrx - [id number] Implanted:Qty: 1 on 11/18/2022 by Nora Antonio DO at OR [facility] [employer] : CRM [id number] 08/09/2023 [facility] [id number] / / [id number] documented as of this encounter Visit Diagnoses Diagnosis Acute hypoxic respiratory failure (HCC)- Primary Acute cough SOB (shortness of breath) Shortness of breath Flu-like symptoms Influenza with other respiratory manifestations documented in this encounter Advance Directives * Full Code (Latest Code Status on File) Date Activated Date Inactivated Comments 04/05/2021 7:37 AM 04/05/2021 4:11 PM This order r eflects the patients wishes and were consensually agreed upon. Question Answer Comments Discussion of Advance Directives occurred with: Not Discussed Care Teams Cooling Tower Operator Relationship Specialty Start Date End Date Dylan Barros MD [address] [place] [address] PCP - General Family Medicine 11/07/23 documented as of this encounter
[2024-09-25] MEDS: INSULIN ASPART PER UNIT CHARGE SC SCH (02:35)
[2024-09-25] MEDS: LEVOTHYROXINE SODIUM 50 MCG TABLET PO SCH (06:24)
[2024-09-25 07:21] LABS: Basophils # (auto) 0.01 K/uL (0.00-0.20); Basophils % (auto) 0.2 %; Hematocrit (blood only) 38.6 % (37.0-47.0); Hemoglobin 12.8 g/dl (12.0-16.0); Immature Granulocytes # (auto) 0.02 K/uL (0.01-0.20); Immature Granulocytes % (auto) 0.5 %; Lymphocytes # (auto) 0.43 K/uL (1.20-3.40); Lymphocytes % (auto) 9.8 %; Mean Corpuscular Hgb Conc 33.2 g/dL (32.0-36.0); Mean Corpuscular Volume 99.5 fL (80.0-100.0); Mean Platelet Volume 11.9 fL (9.4-12.4); Monocytes # (auto) 0.36 K/uL (0.11-0.59); Monocytes % (auto) 8.2 %; Neutrophils # (auto) 3.58 K/uL (1.40-6.50); Neutrophils % (auto) 81.3 %; Platelet Count 144 K/uL (130-400); RDW Coefficient of Variation 14.6 % (11.5-14.5); RDW Standard Deviation 53.9 fL (36.4-46.3); Red Blood Count 3.88 M/uL (4.20-5.40)
[2024-09-25] MEDS: LEVALBUTEROL TARTRATE 15 GM HFA.AER.AD INH SCH (07:40)
[2024-09-25 07:50] LABS: Calcium 8.8 mg/dl (8.6-10.3); Creatinine Clr Calc Pharmacy 81.3 ml/min
[2024-09-25] MEDS: LANTUS PER UNIT CHARGE SQ SCH (08:22)
[2024-09-25] MEDS: dexAMETHasone 6 MG in SYRINGE 0 ML IV SCH (08:30)
[2024-09-25] MEDS: MULTIVITAMIN TAB PO SCH (08:32)
[2024-09-25] MEDS: METOPROLOL SUCC 25MG EXT REL TAB PO SCH (08:32)
[2024-09-25] MEDS: ASPIRIN 81 MG ECTAB PO SCH (08:32)
[2024-09-25] MEDS: SERTRALINE HCL 50 MG TABLET PO SCH (08:33)
[2024-09-25] MEDS ORDERED: SERTRALINE HCL 50 MG TABLET PO SCH (09:00)
--- NOTE | 2024-09-25 13:08 | Electrocardiogram Report ---
Test Reason : Blood Pressure : */* mmHG Vent. Rate : 85 BPM Atrial Rate : 84 BPM P-R Int : * ms QRS Dur : 140 ms QT Int : 360 ms P-R-T Axes : * -46 268 degrees QTcB Int : 428 ms AV dual-paced rhythm with occasional Premature ventricular complexes Abnormal ECG When compared with ECG of 27-Feb-2024 08:59, Premature ventricular complexes are now Present Vent. rate has increased by 21 bpm Confirmed by Marck Salas ([id number]) on 09/25/2024 1:08:39 PM Referred By: REFERRED SELF Confirmed By: Marck Salas
--- NOTE | 2024-09-25 15:21 | Hospitalist Progress Note ---
Date of Service September 25, 2024 Assessment & Plan (1) COVID-19: (2) Acute hypoxic respiratory failure: (3) PMR (polymyalgia rheumatica): (4) PAF (paroxysmal atrial fibrillation): (5) Tachy-luis syndrome: (6) Hypertension: (7) Hypothyroidism: (8) Depression with anxiety: Plan: FINAL ASSESSMENT AND PLAN as follows : Acute hypoxemic respiratory failure secondary to severe COVID-19 pneumonia Remains on 2 L of O2 by nasal cannula Add Mucinex twice daily, incentive spirometry and flutter valve Add Tylenol 1 g every 8 hours scheduled for rib pain Continue remdesivir, Decadron Obtain sputum culture Monitor LFTs, renal function Already on Eliquis SSS status post PPM on Eliquis Nonobstructive CAD as per records History LBBB Hypertension elevated secondary to illness INEZ on CPAP History lung nodules, [place] [facility] [place] DM2 insulin requiring well-controlled as of recent outpatient hemoglobin A1c of 6.7 this month Hypothyroidism, euthyroid as of recent outpatient TSH PMR on chronic steroid Rx Anxiety/mood disorder, mild anxiety during exam (Resume home prednisone Rx for PMR once Decadron dose completed.) DVT prophylaxis. Eliquis Full code Admission and Anticipated Discharge Date Admission Date: September 24, 2024 Subjective Follow-up for COVID-19 pneumonia with acute hypoxic respiratory failure, etc. Seen resting in bed, watching TV, on 2 L of O2 via nasal cannula, not in distress, comfortable States she feels improved today compared to yesterday Breathing is improving Still having productive cough with yellow sputum Having bilateral lower rib pain when coughing No shortness of breath No diarrhea, leg pain, fevers or chills No other symptoms Review of Systems Review of Systems: all noted and negative except for above Physical Exam Physical Exam: General- oriented x 3, not in distress, speaks in sentences with no effort or accessory muscle use Eyes- anicteric Neck- no JVD Lungs- Mild rhonchi bilateral bases, no wheezing Heart- normal rate, regular rhythm; no murmurs Abdomen- normal bowel sounds, nondistended, soft, nontender Extremities- no pretibial edema, no calf tenderness Neuro- alert, oriented x 3; no gross focal neurologic deficits Skin- warm & dry Results & Data Results & Data Vital Signs (Past 12 Hours) Vital Signs Temp Pulse Pulse Resp BP Pulse Ox O2 Del Method 09/25/24 15:14 61 09/25/24 11:53 63 17 93 Nasal Cannula 09/25/24 11:21 36.5 C 66 18 128/87 92 Room Air 09/25/24 09:25 68 16 96 09/25/24 08:48 80 09/25/24 07:40 63 16 96 Nasal Cannula 09/25/24 07:38 36.6 C 62 18 124/80 93 Nasal Cannula 09/25/24 07:30 Nasal Cannula O2 Flow Rate 09/25/24 15:14 09/25/24 11:53 2 09/25/24 11:21 09/25/24 09:25 0 09/25/24 08:48 09/25/24 07:40 2 09/25/24 07:38 3 09/25/24 07:30 2 all noted and reviewed including below
[2024-09-25] MEDS: ACETAMINOPHEN 500 MG TAB PO SCH (15:46)
[2024-09-25] MEDS: REMDESIVIR 100 MG in SODIUM CHLORIDE 0.9% 230 ML IV SCH (19:35)
[2024-09-25] MEDS: ACETAMINOPHEN 500 MG TAB ONE (20:59)
[2024-09-25] MEDS: guaiFENesin 600 MG TABCR PO SCH (20:59)
[2024-09-25] MEDS: METOPROLOL SUCC 50MG EXT REL TAB PO SCH (21:00)
[2024-09-26] MEDS: ACETAMINOPHEN 500 MG TAB PO SCH ×2 (00:33→19:02)
[2024-09-26] MEDS: LEVOTHYROXINE SODIUM 75 MCG TABLET PO SCH (06:23)
[2024-09-26 08:15] LABS: Albumin Globulin Ratio 1.4 (0.9-2); Albumin Level 3.8 gm/dl (3.4-5.0); BUN Creatinine Ratio 33.8 (10-20); Bilirubin,Total 0.4 mg/dl (0.2-1.0); Creatinine Clr Calc Pharmacy 85.4 ml/min; Globulin 2.8 gm/dl (2.5-4.0); Potassium 3.6 mmol/L (3.5-5.1); Total Protein 6.6 gm/dl (6.0-8.3)
--- NOTE | 2024-09-26 16:24 | Hospitalist Progress Note ---
Date of Service September 26, 2024 Assessment & Plan (1) COVID-19: (2) Acute hypoxic respiratory failure: (3) PMR (polymyalgia rheumatica): (4) PAF (paroxysmal atrial fibrillation): (5) Tachy-luis syndrome: (6) Hypertension: (7) Hypothyroidism: (8) Depression with anxiety: Plan: FINAL ASSESSMENT AND PLAN as follows : Acute hypoxemic respiratory failure secondary to severe COVID-19 pneumonia Remains on 2 L of O2 by nasal cannula Add Mucinex twice daily, incentive spirometry and flutter valve Add Tylenol 1 g every 8 hours scheduled for rib pain Continue remdesivir, Decadron Obtain sputum culture Monitor LFTs, renal function Already on Eliquis 09/26 Closely improving Weaned off oxygen currently on room air Continue present regimen Renal function, LFTs okay Monitor closely SSS status post PPM on Eliquis Nonobstructive CAD as per records History LBBB Hypertension elevated secondary to illness INEZ on CPAP History lung nodules, [place] [facility] [place] DM2 insulin requiring well-controlled as of recent outpatient hemoglobin A1c of 6.7 this month Hypothyroidism, euthyroid as of recent outpatient TSH PMR on chronic steroid Rx Anxiety/mood disorder, mild anxiety during exam (Resume home prednisone Rx for PMR once Decadron dose completed.) DVT prophylaxis. Leatha Full code Admission and Anticipated Discharge Date Admission Date: September 24, 2024 Subjective Seen follow-up for COVID-19, acute hypoxic respiratory failure, etc. Seen sitting up in bed, reading a book, in good spirits, comfortable, on room air States she feels better today compared to yesterday Able to cough up more mucus No shortness of breath Rib pain also improving No other new symptoms Review of Systems Review of Systems: all noted and negative except for above Physical Exam Physical Exam: General- oriented x 3, not in distress, speaks in sentences with no effort or accessory muscle use Eyes- anicteric Neck- no JVD Lungs- clear breath sounds bilaterally, no rales/wheezes Heart- normal rate, regular rhythm; no murmurs Abdomen- normal bowel sounds, nondistended, soft, nontender Extremities- no pretibial edema, no calf tenderness Neuro- alert, oriented x 3; no gross focal neurologic deficits Skin- warm & dry Results & Data Results & Data Vital Signs (Past 12 Hours) Vital Signs Temp Pulse Resp BP Pulse Ox O2 Del Method 09/26/24 15:32 68 17 92 Room Air 09/26/24 11:18 36.4 C L 65 19 120/76 91 Room Air 09/26/24 11:14 65 16 Room Air 09/26/24 07:39 36.6 C 75 18 114/64 90 Room Air 09/26/24 07:24 63 16 94 Room Air all noted and reviewed including below
[2024-09-27 07:10] LABS: Albumin Globulin Ratio 1.4 (0.9-2); Albumin Level 3.7 gm/dl (3.4-5.0); BUN Creatinine Ratio 36.4 (10-20); Bilirubin,Total 0.5 mg/dl (0.2-1.0); Calcium 8.8 mg/dl (8.6-10.3); Creatinine Clr Calc Pharmacy 84.2 ml/min; Globulin 2.6 gm/dl (2.5-4.0); Potassium 3.5 mmol/L (3.5-5.1); Total Protein 6.3 gm/dl (6.0-8.3)
--- NOTE | 2024-09-27 14:37 | Hospitalist Progress Note ---
Date of Service September 27, 2024 Assessment & Plan (1) COVID-19: (2) Acute hypoxic respiratory failure: (3) PMR (polymyalgia rheumatica): (4) PAF (paroxysmal atrial fibrillation): (5) Tachy-luis syndrome: (6) Hypertension: (7) Hypothyroidism: (8) Depression with anxiety: Plan: FINAL ASSESSMENT AND PLAN as follows : Acute hypoxemic respiratory failure secondary to severe COVID-19 pneumonia Remains on 2 L of O2 by nasal cannula Add Mucinex twice daily, incentive spirometry and flutter valve Add Tylenol 1 g every 8 hours scheduled for rib pain Continue remdesivir, Decadron Obtain sputum culture Monitor LFTs, renal function Already on Eliquis 09/26 Closely improving Weaned off oxygen currently on room air Continue present regimen Renal function, LFTs okay Monitor closely 09/27 Clinically much better Weaned off oxygen, currently on room air Two-step exercise test:Does not require supplemental oxygen Completed 3 days of remdesivir and Decadron Discharge plan: Paxlovid x 2 more days Mucinex twice daily x 7 more days As needed albuterol inhaler Continue incentive spirometer and flutter valve at home Isolate for 6 more days SSS status post PPM on Eliquis Nonobstructive CAD as per records History LBBB Hypertension INEZ on CPAP History lung nodules, patient follows with [facility] [place] DM2 insulin requiring well-controlled as of recent outpatient hemoglobin A1c of 6.7 this month Hypothyroidism, euthyroid as of recent outpatient TSH PMR on chronic steroid Rx Anxiety/mood disorder, mild anxiety during exam (Resume home prednisone Rx for PMR once Decadron dose completed.) DVT prophylaxis. Nolviaquis Full code Admission and Anticipated Discharge Date Admission Date: September 24, 2024 Subjective Follow-up for COVID-19, acute hypoxic respiratory failure, etc. Seen resting in bed, sitting up, comfortable, on room air Good spirits States she feels much better overall No shortness of breath Less cough, mostly dry No chest pain, palpitation, dizziness No leg pain, no diarrhea No other new symptoms States that she is ready for discharge today Review of Systems Review of Systems: all noted and negative except for above Physical Exam Physical Exam: General- oriented x 3, not in distress, speaks in sentences with no effort or accessory muscle use Eyes- anicteric Neck- no JVD Lungs- clear breath sounds bilaterally, no rales/wheezes Heart- normal rate, regular rhythm; no murmurs Abdomen- normal bowel sounds, nondistended, soft, nontender Extremities- no pretibial edema, no calf tenderness Neuro- alert, oriented x 3; no gross focal neurologic deficits Skin- warm & dry Results & Data Results & Data Vital Signs (Past 12 Hours) Vital Signs Temp Pulse Pulse Pulse Pulse Resp Resp 09/27/24 12:13 36.4 C L 65 20 09/27/24 11:42 86 18 09/27/24 11:34 90 79 18 09/27/24 08:00 09/27/24 07:41 36.4 C L 69 20 09/27/24 07:19 64 20 09/27/24 03:04 36.4 C L 64 19 09/27/24 02:37 60 14 Resp BP Pulse Ox Pulse Ox Pulse Ox O2 Del Method 09/27/24 12:13 116/77 94 Room Air 09/27/24 11:42 93 Room Air 09/27/24 11:34 18 93 91 09/27/24 08:00 Room Air 09/27/24 07:41 146/80 H 94 Room Air 09/27/24 07:19 95 Room Air 09/27/24 03:04 154/99 H 95 CPAP 09/27/24 02:37 95 all noted and reviewed including below
[2024-09-27 15:21] VITALS: BP 112/70; PULSE 64; RESP 19; TEMP 97.3; O2SAT 92
--- NOTE | 2024-09-29 18:19 | Discharge Summary ---
Discharge Summary Date of Service September 29, 2024 delayed entry date of service noted above Principal Dx & Hospital Course #1 = Principal Diagnosis (1) COVID-19: (2) Acute hypoxic respiratory failure: (3) PMR (polymyalgia rheumatica): (4) PAF (paroxysmal atrial fibrillation): (5) Tachy-luis syndrome: (6) Hypertension: (7) Hypothyroidism: (8) Depression with anxiety: FINAL ASSESSMENT AND PLAN as follows : Acute hypoxemic respiratory failure secondary to severe COVID-19 pneumonia Remains on 2 L of O2 by nasal cannula Add Mucinex twice daily, incentive spirometry and flutter valve Add Tylenol 1 g every 8 hours scheduled for rib pain Continue remdesivir, Decadron Obtain sputum culture Monitor LFTs, renal function Already on Eliquis 09/26 Closely improving Weaned off oxygen currently on room air Continue present regimen Renal function, LFTs okay Monitor closely 09/27 Clinically much better Weaned off oxygen, currently on room air Two-step exercise test:Does not require supplemental oxygen Completed 3 days of remdesivir and Decadron Discharge plan: Paxlovid x 2 more days Mucinex twice daily x 7 more days As needed albuterol inhaler Continue incentive spirometer and flutter valve at home Isolate for 6 more days SSS status post PPM on Eliquis Nonobstructive CAD as per records History LBBB Hypertension INEZ on CPAP History lung nodules, [place] [facility] [place] DM2 insulin requiring well-controlled as of recent outpatient hemoglobin A1c of 6.7 this month Hypothyroidism, euthyroid as of recent outpatient TSH PMR on chronic steroid Rx Anxiety/mood disorder, mild anxiety during exam (Resume home prednisone Rx for PMR once Decadron dose completed.) DVT prophylaxis. Nolviaqumalinda Full code Notes For Next Care Provider Medication Changes From Visit Paxlovid x 2 more days Mucinex twice daily x 7 more days As needed albuterol inhaler Admission HPI Per Admitting Provider Patient is 74-year-old female with PMH HTN, dyslipidemia, DM II, atrial fibrillation anticoagulated on Eliquis, SSS s/p pacemaker, PMR on prednisone, hypothyroidism, INEZ, depression presented to ER with c/o flu like symptoms. Patient states last night started with productive cough, unclear of coloration as she has not checked. Reports fever of 100F, chills, headache, myalgias, fati kacie and nasal congestion. Today with nausea and decreased appetite. Today feeling wheezy, chest tightness and SOB. Denies diarrhea or abdominal pain. Reports started with cough and flulike symptoms last night as well. Patient has been on prednisone for months and is on a very slow taper. She currently is on 8 mg daily for 4 weeks and next week is supposed to decrease to 7 mg daily for 4 weeks. Seen at urgent care today and found to have pulse ox of 88-90% on RA and referred to ER. Denies dizziness, syncope, vision changes, neck pain, palpitations, hemoptysis, extremity edema, rashes, urinary symptoms. Admission Exam Per Admitting Provider General: no acute distress, WDWN Head: normocephalic, atraumatic Eyes: conjunctiva non-injected, anicteric ENT: normal inspection external ears, nose, mucous membranes mildly dry Neck: supple, trachea midline, ROM intact Lungs: ccarse breath sounds throughut, 96% on 2L O2 via NC, R: 20. able to speak in sentences CV: RRR, no pretibial edema Abd: normal BS, soft, non-tender Ext: no cyanosis, no calf tenderness Neuro: A&O x 3, no focal deficits noted, normal affect Skin: warm, dry Discharge Exam General- oriented x 3, not in distress, speaks in sentences with no effort or accessory muscle use Eyes- anicteric Neck- no JVD Lungs- clear breath sounds bilaterally, no rales/wheezes Heart- normal rate, regular rhythm; no murmurs Abdomen- normal bowel sounds, nondistended, soft, nontender Extremities- no pretibial edema, no calf tenderness Neuro- alert, oriented x 3; no gross focal neurologic deficits Skin- warm & dry Updated Medication List Medication Instructions Recorded Confirmed Type nitroglycerin 0.4 mg sublingual 0.4 mg sublingual Q5M PRN Chest 07/26/19 09/24/24 History tablet Pain psyllium husk 3.4 gram/5.4 gram 1 tbs PO DAILY PRN Constipation 03/10/20 09/24/24 History oral powder (Metamucil) atorvastatin 20 mg tablet 20 mg PO HS 03/19/20 09/24/24 History lorazepam 1 mg tablet 1 mg PO Q8H PRN Anxiety 03/21/20 09/24/24 History hydrochlorothiazide 25 mg tablet 25 mg PO DAILY 06/01/20 09/24/24 History cholecalciferol (vitamin D3) 25 2,000 unit PO QAM 01/04/21 09/24/24 History mcg (1,000 unit) capsule multivitamin 1 tab PO QAM 01/04/21 09/24/24 History blood sugar diagnostic (OneTouch #100 ea 01/08/21 09/24/24 Rx Ultra Blue Test Strip) levothyroxine 50 mcg tablet 50 mcg PO DAILY #30 tabs 04/04/22 09/24/24 Rx sertraline 100 mg tablet 150 mg (1.5 x 100 mg) PO QAM #45 04/16/22 09/24/24 Rx tabs apixaban 5 mg tablet (Eliquis) 5 mg PO BID 02/26/24 09/24/24 History metformin 500 mg tablet,extended 500 mg PO QPM 02/26/24 09/24/24 History release 24 hr metoprolol succinate 25 mg 25 mg PO QAM 02/26/24 09/24/24 History tablet,extended release 24 hr trazodone 50 mg tablet 25 mg PO QPM PRN Sleep 02/26/24 09/24/24 History empagliflozin 10 mg tablet 10 mg PO DAILY 06/29/24 09/24/24 History (Jardiance) potassium chloride 20 mEq 20 meq PO BID 06/29/24 09/24/24 History tablet,extended release(part/cryst) aspirin 81 mg tablet,delayed 81 mg PO DAILY 09/24/24 09/24/24 History release metoprolol succinate 50 mg 50 mg PO QPM 09/24/24 09/24/24 History tablet,extended release 24 hr prednisone 1 mg tablet 3 mg PO DAILY 09/24/24 09/24/24 History prednisone 5 mg tablet 5 mg PO DAILY 09/24/24 09/24/24 History sertraline 100 mg tablet 150 mg PO DAILY 09/24/24 09/24/24 History guaifenesin 600 mg tablet, 600 mg PO Q12 7 days #14 tabs 09/27/24 Rx extended release 12 hr (Mucinex) levalbuterol tartrate 45 2 puff inhalation Q4H PRN 09/27/24 Rx mcg/actuation aerosol inhaler shortness of breath or wheezing 10 (Xopenex HFA) days #15 grams nirmatrelvir 300 mg (150 mg See Rx Instructions PO .COMPLEX 09/27/24 Rx x2)-ritonavir 100 mg tablet,dose #30 ea pack (Paxlovid) Hospital Stay Data Consultations 09/24/24 20:40 ED Decision to Admit Stat Diagnostic Imagining Performed 09/24/24 21:47 CT head/brain wo con Stat EXAM: CT Head Without Intravenous Contrast CLINICAL HISTORY: Reason for exam: lopez, eliquis. TECHNIQUE: Axial computed tomography images of the head/brain without intravenous contrast. CTDI is 35.65 mGy and DLP is 625.8 mGy-cm. Automated exposure control was utilized for the study. A dose lowering technique was utilized adhering to the principles of ALARA. COMPARISON: 07/22/2019 FINDINGS: Brain: Unremarkable. No hemorrhage. No significant white matter disease. No edema. Ventricles: Unremarkable. No ventriculomegaly. Bones/joints: Unremarkable. No acute fracture. Soft tissues: Unremarkable. Sinuses: Unremarkable as visualized. No acute sinusitis. Mastoid air cells: Unremarkable as visualized. No mastoid effusion. IMPRESSION: Head CT negative for acute intracranial abnormality.. Electronically signed by: Boris Ellington MD 09/24/24 22:57 PM Pending Results Patient Have Any Pending Studies at Discharge: No Discharge Instructions Given to Patient (Per Discharging Provider) PLEASE REFER TO YOUR NEW MEDICATION LIST AND FOLLOW INSTRUCTIONS CAREFULLY. YOUR NEW MEDICATIONS INCLUDE: Paxlovid-treatment for COVID infection, to be taken for only 2 days Mucinex-for cough Levalbuterol inhaler-as needed for shortness of breath Please isolate for 6 more days. Please continue to ambulate frequently to prevent blood clots in the legs in the lungs. Continue to use incentive spirometry and flutter valve frequently at home. PLEASE CALL YOUR PRIMARY CARE PHYSICIAN OR RETURN TO THE ER IF WITH WORSENING OF SYMPTOMS, INCLUDING Shortness of breath, cough, fevers or chills, chest pain, leg pain or swelling, etc. FOLLOW UP WITH PRIMARY CARE PHYSICIANIn 1 week. The clinic will be calling you for the appointment. Total Time Total Time Spent Total Time Spent (In Minutes): 45 minutes
== END 2024-09-27 18:51 | disposition home or self-care (01) | DRG 177 ==
LOC: ED 19:19 → 2S 23:04

== ENCOUNTER 2024-10-21 18:02 | Inpatient (IN) ==
--- NOTE | 2024-10-21 18:45 | XRay Report ---
EXAM: Radiographs of the Right Hip 3 Views INDICATION: Posttraumatic pain. TECHNIQUE: Front view pelvis and AP and frog leg lateral views of the right hip. COMPARISON: 10/07/2024 FINDINGS: Limitations: None. Bones/joints: No fracture, erosion or dislocation. Soft tissues: No abnormality noted. No radiopaque foreign body noted. IMPRESSION: No radiographic abnormality of the right hip. ACT 112: Negative or not required by law. Electronically signed by Telma Beltran 10-21-2024 6:45 PM
--- NOTE | 2024-10-21 18:46 | XRay Report ---
EXAM: Radiographs of the Right Knee 2 Views INDICATION: Posttraumatic pain. TECHNIQUE: Frontal and lateral views of the right knee. COMPARISON: No relevant prior studies available. FINDINGS: Bones/joints: There is mild patellofemoral spurring. There is smooth appearing depression in the lateral margin of the lateral femoral condyle which may reflect an old osteochondral defect. There is no acute fracture. No loose body or erosion. Soft tissues: No abnormality noted. No radiopaque foreign body noted. IMPRESSION: 1. No acute abnormality. 2. Possible old osteochondral defect lateral femoral condyle. ACT 112: Negative or not required by law. Electronically signed by Telma Beltran 10-21-2024 6:46 PM
--- OUTSIDE RECORDS SUMMARY | 2024-10-21 19:01 | External Medical Summary | Summary of Care ---
Author Name Unknown Organization [facility] Address [address] [place] [address] Phone [phone] Care Team Providers Care Link Trainer Name Role Phone yDlan Barros MD Primary Care Provider [phone] Reason for Visit * Reason Onset Date Comments Medication Pre-auth 10/14/2024 Pregabalin Encounter Details Date Type Department Care Team (Late st Contact Info) Description 10/14/2024 Telephone [facility] [address] [place] [phone] Shaggy Curry MD [address] [place] [address] Medication Pre-auth (Pregabalin) Allergies Active Allergy Reactions Criticality Noted Date Comments Albuterol High 04/04/2022 Other reaction(s): racing heart Citalopram 04/04/2022 Other reaction(s): Unknown Sulfa Antibiotics Hives Medium 07/07/2000 documented as of this encounter (statuses as of 10/19/2024) Medications MULTIVITAMINS PO TABS 1 tablet daily [...] before bedtime. 180 Tablet 3 4 Active [employer] Verio w/Device Kit Use up to 4 times a day E11.9 1 Kit 4 Active predniSONE 10 MG Oral Tablet (Deltasone)Indic ations:PMR (polymyalgia rheumatica) ([facility]) Take 1 Tablet by mouth in the morning. 90 Tablet 4 Active Additional Information Patient not taking.Reported on 10/04/2024 predniSONE 2.5 MG Oral Tablet (Deltasone)Indic ations:PMR (polymyalgia rheumatica) ([facility]) Take 1 Tablet by mouth in the morning. 90 Tablet 4 Active Additional Information Patient not taking.Reported on 10/04/2024 Metoprolol Succinate ER 50 MG Oral Tablet [...] at bedtime. 90 Tablet 1 4 Active Levothyroxine Sodium 50 MCG Oral [...] Active Additional Information Patient not taking.Reported on 10/04/2024 Metoprolol Succinate ER 25 MG Oral Tablet Extended Release 24 Hour (toPROL XL)Indications:P aroxysmal atrial fibrillation (HCC) Take 1 Tablet by mouth in the morning. This is in addition to the 50 mg tablet daily. 90 Tablet 3 4 Active guaiFENesin ER 600 MG Oral Tablet Extended Release 12 Hour (Humibid LA) Take 1 Tablet by mouth in the morning and 1 Tablet before bedtime. 4 Active Levalbuterol Tartrate 45 MCG/ACT Inhalation Aerosol (Xopenex HFA) Inhale 2 Puffs by mouth every 4 hours as needed for Wheezing or Shortness of Breath. 4 Active LORazepam 0.5 MG Oral Tablet (Ativan) Take 1 Tablet by mouth 3 times a day as needed for Anxiety. 30 Tablet 4 Active Pregabalin 75 MG Oral Capsule (Lyrica)Indicati ons:Hip pain, right,Acute pain of left knee,Acute left ankle pain Take 1 Capsule by mouth in the morning and 1 Capsule before bedtime. 60 Capsule 2 4 Active documented as of this encounter (statuses as of 10/19/2024) Active Problems Problem Noted Date Diagnosed Date Fall 10/13/2024 Assessment & Plan (10/13/2024 10:38 AM EST): Significant bruising on exam. We will check a CBC. Patient on Eliquis for AFib and states she does have palpitations from time to time so it is better that she remain on her Eliquis. Patient has been taking low-dose Tylenol. I suggested she increase to 1000 mg 3 times a day. We also discussed other options for pain and decided to try Lyrica given her other medical conditions this seemed to be the safest with least side effects. She still has tramadol at home which she may take as needed for breakthrough pain. We will also refer to physical therapy to help her get moving again and for future prevention. Acute pain of left knee 10/13/2024 Assessment & Plan (10/13/2024 10:38 AM EST): Likely superficial bruising, refer to fall Acute left ankle pain 10/13/2024 Assessment & Plan (10/13/2024 10:38 AM EST): Possible high ankle sprain. We will refer to physical therapy Hip pain, right 10/13/2024 Assessment & Plan (10/13/2024 10:39 AM EST): Given initial imaging was negative for fracture likely superficial pain and bruising remain. Refer to fall diagnosis. If pain is not improved within 2 weeks consider repeat x-rays. Cardiac pacemaker in situ 03/02/2024 PMR (polymyalgia [...] AHI was 17.1 DME: [facility], [place] Titration study 04/27/12 set pressure of 8 cm HTN, goal below 130/80 01/09/2011 Chronic coronary artery disease 09/15/2010 Overview (09/15/2010): Cath 2006 - 30% mid LAD stenosis Dyslipidemia, goal LDL below 70 09/15/2010 documented as of this encounter (statuses as of 10/19/2024) Resolved Problems Problem Noted Date Diagnosed Date Resolved Date Obstructive sleep apnea 11/28/2011 04 Overview (11/28/2011): AHI 8..2 in April 2008 documented as of this encounter (statuses as of 10/19/2024) Immunizations Name Administration Dates Next Due COVID-19 mRNA, LNP-s, No Pre serve, 2-Dose Series (Moderna) 12/24/2020,11/19/2020 COVID-19, mRNA, LNP-s, PF, B ooster, 100mcg/0.5mg (Moderna) 08/18/2021 Covid-19, Mrna, Lnp-s, Pf, B ivalent, 30 Mcg, IM, 12 yrs and above (Pfizer) 08/01/2022 DT - Diptheria/Tetanus (PEDS) 06/06/2005 Pneumococcal Conjugate Vacc, 13 Valent (Prevnar) 12/13/2015 Pneumococcal Conjugate Vacci ne, 20-valent (Suvonfi79) 09/21/2024 Pneumococcal Polysaccharide PPV23 (Pneumovax) 08/22/2014 Seasonal [...] No 01/06/2024 Does the household have a [facility] of income? (Household - for ages [...] Miscellaneous Notes * Telephone Encounter - Nicole Segundo MED ASSIST - 10/19/2024 2:21 PM EST Patient aware and verbalized understanding. She states she already picked up and paid for it. * Telephone Encounter - Shaggy Curry MD - 10/18/2024 5:34 PM EST I would call patient and let her know the decision of the insurance company. If she wanted to use good Rx and go to a big box pharmacy it looks like the prices at [facility] and [facility] run from 19-24 dollars. * Telephone Encounter - Tomas Yuan LPN - 10/18/2024 3:23 PM EST PA for pregabalin was denied because: -the diagnosis submitted is not a medically accepted indication for pregabalin as defined by CMS Please advise. * Telephone Encounter - Tomas Yuan LPN - 10/18/2024 8:03 AM EST PA for pregabalin was denied. No rationale received. Will reach out to insurance for denial reason. * Telephone Encounter - Whitney Feng CMA - 10/14/2024 10:17 AM EST PA submitted for Pregabalin thru [facility] Dominguez: [id number] documented in this encounter Plan of Treatment Upcoming Encounters Date Type Department Care Team (Late st Contact Info) Description 10/22/2024 8:45 AM EST Office Visit Cardiology, [facility] [address] [facility] [place] [address] Nora Antonio, [address] [facility] [place] [address] 12/14/2024 9:30 AM EST Office Visit Cardiology, [facility] [address] [facility] [place] [address] Nicole Severino PA-C [address] [facility] [place] [address] 01/20/2025 10:40 AM EDT Telemedicine Rheumatology, [address] [address] Tessa Duque, [address] [place] [address] 03/24/2025 9:40 AM EDT Office Visit [facility] [place] [address] [place] [phone] Dylan Barros MD [address] [place] [address] 04/01/2025 11:20 AM EDT Office Visit [facility] [address] [place] [phone] Riddhi Cook, [address] [place] [address] Scheduled Procedures Name Priority Associated Diagnoses Date/Ti me COLONOSCOPY FLEXIBLE PROXIMA L DIAGNOSTIC Recall History of colonic polyps Health Maintenance Due Date Last Done Comments Cologuard 1995 Sigmoidoscopy 1995 Fecal Occult Blood Test 07/07/2001 07/07/2000 Adult Wellness Visit 2016 COVID-19 Vaccine ( season) 2024 08/01/2022, 08/18/2021, 12/24/2020, Additional history exists Albumin/Creatinine Ratio 07/08/2024 07/08/2023, 0806/2022 Mammogram 01/19/2025 01/20/2024, 12/26, 07/15/2001 HbA1c 03/21/2025 09/21/2024, 050 03/2024, 07/08/2023, Additional history exists DXA Scan 04/30/2025 04/30/2018 Depression Monitoring 06/14/2025 06/14/2024 DTap/Tdap Vaccines (3 - Td or Tdap) 07/18/2025 07/18/2015, 06/06/2005 Diabetic Eye Exam 09/17/2025 09/17/2024, (Done elsewhere), 09/15/2023, Additional history exists GFR 09/21/2025 09/21/2024, 02/25, 03/08/2024, Additional history [...] this encounter Medical Devices Implanted Type Area Wildlife Technician Device Identifier Shelf Expiration Date Model / Serial / Lot Lead Pace Selectsecure [id number] - [id number] Implanted:Qty: 1 on 11/18/2022 by Nora Antonio DO at [facility] Lead Left: Heart [employer] : CRM 10/18/2024 [id number] / / Description:RV LBBB Lead Novus Bipolar 52cm - [id number] - [id number] Implanted:Qty: 1 on 11/18/2022 by Nora Antonio DO at [facility] Lead Left: Heart [employer] : CRM 09/23/2024 [id number] / [id number] / Description:RA Pacemaker [place] X[address] Banks Wrls - [id number] - [id number] Implanted:Qty: 1 on 11/18/2022 by Nora Antonio DO at [facility] Pacemaker Left: Chest [employer] 04/09/2024 [id number] / [id number] / Lens Intraoc 26.5 - [id number] - [id number] Implanted:Qty: 1 on 02/23/2019 by ChelsyJonas yanez MD at [facility] Right: Eye [employer] 05/26/2023 [id number] / [id number] / [id number] Lens Intraoc 24.5 - [id number] - [id number] Implanted:Qty: 1 on 03/02/2019 by Jonas Valentino MD at [facility] Left: Eye [employer]OM[employer] 08/26/2023 [id number] / [id number] / [id number] Envelope Antibacterial Tyrx - [id number] Implanted:Qty: 1 on 11/18/2022 by Nora Antonio DO at [facility] [employer] : CRM [id number] 08/09/2023 CMR [id number] / / [id number] documented as of this encounter Advance Directives * Full Code (Latest Code Status on File) Date Activated Date Inactivated Comments 04/05/2021 7:37 AM 04/05/2021 4:11 PM This order r eflects the patients wishes and were consensually agreed upon. Question Answer Comments Discussion of Advance Directives occurred with: Not Discussed Care Teams Link Trainer Relationship Specialty Start Date End Date Dylan Barros MD PCP - General Family Medicine 11/07/23 documented as of this encounter
--- OUTSIDE RECORDS SUMMARY | 2024-10-21 19:02 | External Medical Summary ---
Author Name Unknown Address Unknown Organization K[place] [place] [address] [place] [id number] Laboratory Report Ordering Provider Test Date Status NORAH BARRETT 10/13/2024 10:44:46 Final Observation Date Value Abnormality Reference (Units ) Status MYCODE SPECIMEN-SST 10/13/2024 10:44:46 Freezing of extracted DNA, whole blood and/or serum. Final Performing Location [facility] [place] [address] [place] [address]
--- OUTSIDE RECORDS SUMMARY | 2024-10-21 19:02 | External Medical Summary | Summary of Care ---
Author Name Unknown Organization [facility] Address [address] [place] [address] Phone [phone] Care Team Providers Care Fishing Boat Captain Name Role Phone Dylan Barros MD Primary Care Provider +1- [phone] Reason for Visit * Reason Onset Date Comments Medication Pre-auth 10/14/2024 Pregabalin Encounter Details Date Type Department Care Team (Late st Contact Info) Description 10/14/2024 Telephone [facility] [address] [place] [address] Shaggy Curry MD [address] [place] [address] Medication Pre-auth (Pregabalin) Allergies Active Allergy Reactions Criticality Noted Date Comments Albuterol High 04/04/2022 Other reaction(s): racing heart Citalopram 04/04/2022 Other reaction(s): Unknown Sulfa Antibiotics Hives Medium 07/07/2000 documented as of this encounter (statuses as of 10/14/2024) Medications MULTIVITAMINS PO TABS 1 tablet daily [...] before bedtime. 180 Tablet 3 4 Active [employer] Verio w/Device Kit Use up to 4 times a day E11.9 1 Kit 4 Active predniSONE 10 MG Oral Tablet (Deltasone)Indic ations:PMR (polymyalgia rheumatica) ([facility]) Take 1 Tablet by mouth in the morning. 90 Tablet 4 Active Additional Information Patient not taking.Reported on 10/04/2024 predniSONE 2.5 MG Oral Tablet (Deltasone)Indic ations:PMR (polymyalgia rheumatica) ([facility]) Take 1 Tablet by mouth in the [...] hemoglobin A1c goal of less than 7.0% ([facility]) Take 1 Tablet by mouth daily. 90 Tablet 3 4 Active OneTouch Ultra Test In Vitro Strip (Glucose Blood)Indication s:Type 2 diabetes mellitus with hemoglobin A1c goal of less than 7.0% ([facility]) Use to check blood sugars once per day Dx E11.9 100 Strip 5 4 Active hydroCHLOROthiaz giuliano 25 MG Oral Tablet (Hydrodiuril)Ind ications:Chronic coronary artery disease,HTN, goal below 130/80 TAKE 1 TABLET BY MOUTH EVERY MORNING 90 Tablet 4 Active predniSONE 5 MG Oral Tablet (Deltasone)Indic ations:PMR (polymyalgia rheumatica) ([facility]) Take 1 Tablet by mouth in the [...] as of this encounter (statuses as of 10/14/2024) Active Problems Problem Noted Date Diagnosed Date [...] as of this encounter (statuses as of 10/14/2024) Resolved Problems Problem Noted Date Diagnosed Date Resolved Date Obstructive sleep apnea 11/28/2011 04 Overview (11/28/2011): AHI 8..2 in April 2008 documented as of this encounter (statuses as of 10/14/2024) Immunizations Name Administration Dates Next Due COVID-19 mRNA, LNP-s, No Pre serve, 2-Dose Series (Moderna) 12/24/2020,11/19/2020 COVID-19, mRNA, LNP-s, PF, B ooster, 100mcg/0.5mg (Moderna) 08/18/2021 Covid-19, Mrna, Lnp-s, Pf, B ivalent, 30 Mcg, IM, 12 yrs and above (Pfizer) 08/01/2022 DT - Diptheria/Tetanus (PEDS) 06/06/2005 Pneumococcal Conjugate Vacc, 13 Valent (Prevnar) 12/13/2015 Pneumococcal Conjugate Vacci ne, 20-valent ([id number]) 09/21/2024 Pneumococcal Polysaccharide PPV23 (Pneumovax) 08/22/2014 Seasonal [...] No 01/06/2024 Does the household have a [facility] source of income? (Household - for [...] encounter Miscellaneous Notes * Telephone Encounter - Whitney Feng CMA - 10/14/2024 10:17 AM EST [place] submitted for Pregabalin thru Cm Dominguez: [id number] documented in this encounter Plan of Treatment Upcoming Encounters Date Type Department Care Team (Late st Contact Info) Description 10/22/2024 8:45 AM EST Office Visit Cardiology, [facility] [address] [place] [address] Nora Antonio, [address] [place] [phone] 12/14/2024 9:30 AM EST Office Visit Cardiology [facility] [address] [place] [address] Nicole Severino PA-C [address] [place] [address] 01/20/2025 10:40 AM EDT Telemedicine Rheumatology, [place] [address] [place] [address] Tessa Duque, [address] [place] [address] 03/24/2025 9:40 AM EDT Office Visit [facility], [facility] [phone] Dylan Barros MD [address] [place] [address] 04/01/2025 11:20 AM EDT Office Visit [facility] [address] [place] [phone] Riddhi Cook DO [address] [place] [address] Scheduled Procedures Name Priority Associated Diagnoses Date/Ti [...] this encounter Medical Devices Implanted Type Area Plastic Surgery Specialist Device Identifier Shelf Expiration Date Model / Serial / Lot Lead Pace Selectsecure 3830-69 - [id number] Implanted:Qty: 1 on 11/18/2022 by Nora Antonio DO at OR [facility] Lead Left: Heart [employer] : CAR 10/18/2024 [id number] / / Description:RV LBBB Lead Novus Bipolar 52cm - [id number] - [id number] Implanted:Qty: 1 on 11/18/2022 by Nora Antonio DO at OR [facility] Lead Left: Heart [employer] : CRM 09/23/2024 5076-52 / [id number] / Description:RA Pacemaker [place] Xt Dr Jocelyn Wrls - [id number] - [id number] Implanted:Qty: 1 on 11/18/2022 by Nora Antonio DO at OR [facility] Pacemaker Left: Chest [employer] 04/09/2024 [id number] / [id number] / Lens Intraoc 26.5 - [id number] - [id number] Implanted:Qty: 1 on 02/23/2019 by Jonas Valentino MD at OR [facility] Right: Eye BAUSCH & LOMB 05/26/2023 [id number] / [id number] / [id number] Lens Intraoc 24.5 - [id number] - [id number] Implanted:Qty: 1 on 03/02/2019 by Jonas Valetnino MD at OR [facility] Left: Eye BAUSCH & LOMB 08/26/2023 [id number] / [id number] / [id number] Envelope Antibacterial Tyrx - [id number] Implanted:Qty: 1 on 11/18/2022 by Nora Antonio DO at OR [facility] [employer] : CRM [id number] 08/09/2023 [facility] [id number] / / [id number] documented as of this encounter Advance Directives * Full Code (Latest Code Status on File) Date Activated Date Inactivated Comments 04/05/2021 7:37 AM 04/05/2021 4:11 PM This order r eflects the patients wishes and were consensually agreed upon. Question Answer Comments Discussion of Advance Directives occurred with: Not Discussed Care Teams Fishing Boat Captain Relationship Specialty Start Date End Date Dylan Barros MD PCP - General Family Medicine 11/07/23 documented as of this encounter
--- OUTSIDE RECORDS SUMMARY | 2024-10-21 19:02 | External Medical Summary | Summary of Care ---
Author Name Unknown Organization [facility] Address [address] [place] [address] Phone [phone] Care Team Providers Care Bandage Maker Name Role Phone Dylan Barros MD Primary Care Provider +1- [phone] Reason for Visit * Reason Onset Date Comments Medication Pre-auth 10/14/2024 Pregabalin Encounter Details Date Type Department Care Team (Late st Contact Info) Description 10/14/2024 Telephone [facility] [address] [place] [address] Shaggy Curry MD [address] [place] [address] Medication Pre-auth (Pregabalin) Allergies Active Allergy Reactions Criticality Noted Date Comments Albuterol High 04/04/2022 Other reaction(s): racing heart Citalopram 04/04/2022 Other reaction(s): Unknown Sulfa Antibiotics Hives Medium 07/07/2000 documented as of this encounter (statuses as of 10/18/2024) Medications MULTIVITAMINS PO TABS 1 tablet daily [...] before bedtime. 180 Tablet 3 4 Active [employer] Verio w/Device Kit Use up to 4 times a day E11.9 1 Kit 4 Active predniSONE 10 MG Oral Tablet (Deltasone)Indic ations:PMR (polymyalgia rheumatica) ([facility]) Take 1 Tablet by mouth in the morning. 90 Tablet 4 Active Additional Information Patient not taking.Reported on 10/04/2024 predniSONE 2.5 MG Oral Tablet (Deltasone)Indic ations:PMR (polymyalgia rheumatica) ([facility]) Take 1 Tablet by mouth [...] hemoglobin A1c goal of less than 7.0% ([facility]) Take 1 Tablet by mouth daily. 90 Tablet 3 4 Active OneTouch Ultra Test In Vitro Strip (Glucose Blood)Indication s:Type 2 diabetes mellitus with hemoglobin A1c goal of less than 7.0% ([facility]) Use to check blood sugars once per day Dx E11.9 100 Strip 5 4 Active hydroCHLOROthiaz giuliano 25 MG Oral Tablet (Hydrodiuril)Ind ications:Chronic coronary artery disease,HTN, goal below 130/80 TAKE 1 TABLET BY MOUTH EVERY MORNING 90 Tablet 4 Active predniSONE 5 MG Oral Tablet (Deltasone)Indic ations:PMR (polymyalgia rheumatica) ([facility]) Take 1 Tablet by mouth [...] as of this encounter (statuses as of 10/18/2024) Active Problems Problem Noted Date Diagnosed Date [...] AHI was 17.1 DME: [facility], [place] Titration study 04/27/12 set pressure of 8 cm HTN, goal below 130/80 01/09/2011 Chronic coronary artery disease 09/15/2010 Overview (09/15/2010): Cath 2006 - 30% mid LAD stenosis Dyslipidemia, goal LDL below 70 09/15/2010 documented as of this encounter (statuses as of 10/18/2024) Resolved Problems Problem Noted Date Diagnosed Date Resolved Date Obstructive sleep apnea 11/28/2011 04 Overview (11/28/2011): AHI 8..2 in April 2008 documented as of this encounter (statuses as of 10/18/2024) Immunizations Name Administration Dates Next Due COVID-19 mRNA, LNP-s, No Pre serve, 2-Dose Series (Moderna) 12/24/2020,11/19/2020 COVID-19, mRNA, LNP-s, PF, B ooster, 100mcg/0.5mg (Moderna) 08/18/2021 Covid-19, Mrna, Lnp-s, Pf, B ivalent, 30 Mcg, IM, 12 yrs and above (Pfizer) 08/01/2022 DT - Diptheria/Tetanus (PEDS) 06/06/2005 Pneumococcal Conjugate Vacc, 13 Valent (Prevnar) 12/13/2015 Pneumococcal Conjugate Vacci ne, 20-valent (Ezyclpf57) 09/21/2024 Pneumococcal Polysaccharide PPV23 (Pneumovax) 08/22/2014 Seasonal [...] No 01/06/2024 Does the household have a [facility] source of income? (Household - for [...] encounter Miscellaneous Notes * Telephone Encounter - Tomas Yuan LPN [...] AM EST [place] submitted for Pregabalin thru Cmm Dominguez: [id number] documented in this encounter Plan of Treatment Upcoming Encounters Date Type Department Care Team (Late st Contact Info) Description 10/22/2024 8:45 AM EST Office Visit Cardiology, [facility] [address] [facility] [place] [address] Nora Antonio, DO [address] [facility] [place] [address] 12/14/2024 9:30 AM EST Office Visit Cardiology, [facility] [address] [facility] [place] [address] Nicole Severino PA-C [address] [facility] [place] [address] 01/20/2025 10:40 AM EDT Telemedicine Rheumatology, [place] [address] [place] [address] Tessa Duque, [address] [place] [address] 03/24/2025 9:40 AM EDT Office Visit [facility] [address] [place] [phone] Dylan Barros MD [address] [facility] [place] [address] 04/01/2025 11:20 AM EDT Office Visit Sleep Disorders [facility] [address] [facility] [place] [phone] Riddhi Cook, DO [address] [facility] [place] [address] Scheduled Procedures Name Priority Associated Diagnoses Date/Ti me COLONOSCOPY FLEXIBLE PROXIMA L DIAGNOSTIC Recall History of colonic polyps Health Maintenance Due Date Last Done Comments Cologuard 1995 Sigmoidoscopy 1995 Fecal Occult Blood Test 07/07/2001 07/07/2000 Adult Wellness Visit 2016 COVID-19 Vaccine ( season) 2024 08/01/2022, 08/18/2021, 12/24/2020, Additional history exists Albumin/Creatinine Ratio 07/08/2024 07/08/2023, 080 06/2022 Mammogram 01/19/2025 01/20/2024, 2 10/2022, 07/15/2001 HbA1c 03/21/2025 09/21/2024, 050 03/2024, 07/08/2023, [...] this encounter Medical Devices Implanted Type Area Steamfitter Supervisor Device Identifier Shelf Expiration Date Model / Serial / Lot Lead Pace Selectsecure 3830-69 - [id number] Implanted:Qty: 1 on 11/18/2022 by Nora Antonio DO at OR [facility] Lead Left: Heart [employer] : [facility] 10/18/2024 [id number] / / Description:RV LBBB Lead Novus Bipolar 52cm - [id number] - [id number] Implanted:Qty: 1 on 11/18/2022 by Nora Antonio DO at OR [facility] Lead Left: Heart [employer] : [facility] 09/23/2024 5076-52 / [id number] / Description:RA Pacemaker Dana Xt Dr Banks Wrls - [id number] - [id number] Implanted:Qty: 1 on 11/18/2022 by Nora Antonio DO at OR [facility] Pacemaker Left: Chest [employer] 04/09/2024 [id number] / [id number] / Lens Intraoc 26.5 - [id number] - [id number] Implanted:Qty: 1 on 02/23/2019 by Jonas Valentino MD at OR [facility] Right: Eye BAUSCH & LOMB 05/26/2023 [id number] / [id number] / [id number] Lens Intraoc 24.5 - [id number] - [id number] Implanted:Qty: 1 on 03/02/2019 by Jonas Valentino MD at OR [facility] Left: Eye BAUSCH & LOMB 08/26/2023 [id number] / [id number] / [id number] Envelope Antibacterial Tyrx - [id number] Implanted:Qty: 1 on 11/18/2022 by Nora Antonio DO at OR [facility] [employer] : [facility] [id number] 08/09/2023 [facility] M6122 / / [id number] documented as of this encounter Advance Directives * Full Code (Latest Code Status on File) Date Activated Date Inactivated Comments 04/05/2021 7:37 AM 04/05/2021 4:11 PM This order r eflects the patients wishes and were consensually agreed upon. Question Answer Comments Discussion of Advance Directives occurred with: Not Discussed Care Teams Bandage Maker Relationship Specialty Start Date End Date Dylan Barros MD PCP - General Family Medicine 11/07/23 documented as of this encounter
--- OUTSIDE RECORDS SUMMARY | 2024-10-21 19:02 | External Medical Summary | Summary of Care ---
Author Name Unknown Organization [facility] Address [address] [place] [address] Phone [phone] Care Team Providers Care Thread Grinder Name Role Phone Dylan Barros MD Primary Care Provider +1- [phone] Reason for Visit * Reason Onset Date Comments Medication Pre-auth 10/14/2024 Pregabalin Encounter Details Date Type Department Care Team (Late st Contact Info) Description 10/14/2024 Telephone [facility] [address] [place] [address] Shaggy Curry MD [address] [place] [address] Medication Pre-auth (Pregabalin) Allergies Active [...] before bedtime. 180 Tablet 3 4 Active [employer] Verio w/Device Kit Use up to 4 times a day E11.9 1 Kit 4 Active predniSONE 10 MG Oral Tablet (Deltasone)Indic ations:PMR (polymyalgia rheumatica) ([facility]) Take 1 Tablet by mouth in the morning. 90 Tablet 4 Active Additional Information Patient not taking.Reported on 10/04/2024 predniSONE 2.5 MG Oral Tablet (Deltasone)Indic ations:PMR (polymyalgia rheumatica) ([facility]) Take 1 Tablet by mouth in the [...] A1c goal of less than 7.0% ([facility]) Take 1 Tablet by mouth daily. 90 Tablet 3 4 Active OneTouch Ultra Test In Vitro Strip (Glucose Blood)Indication s:Type 2 diabetes mellitus with hemoglobin A1c goal of less than 7.0% ([facility]) Use to check blood sugars once per day Dx E11.9 100 Strip 5 4 Active hydroCHLOROthiaz giuliano 25 MG Oral Tablet (Hydrodiuril)Ind ications:Chronic coronary artery disease,HTN, goal below 130/80 TAKE 1 TABLET BY MOUTH EVERY MORNING 90 Tablet 4 Active predniSONE 5 MG Oral Tablet (Deltasone)Indic ations:PMR (polymyalgia rheumatica) ([facility]) Take 1 Tablet by mouth in the [...] AHI was 17.1 DME: [facility], [place] Titration study 04/27/12 set pressure of 8 [...] (Prevnar) 12/13/2015 Pneumococcal Conjugate Vacci ne, 20-valent ([id number]) 09/21/2024 Pneumococcal Polysaccharide PPV23 (Pneumovax) 08/22/2014 Seasonal [...] No 01/06/2024 Does the household have a [facility] source of income? (Household - for [...] [place] submitted for Pregabalin thru Cmm Dominguez: [id number] documented in this encounter Plan of Treatment Upcoming Encounters Date Type Department Care Team (Late st Contact Info) Description 10/22/2024 8:45 AM EST Office Visit Cardiology, [facility] [address] [facility] [place] [address] Marisela Nora Herring, DO [address] [facility] [place] [address] 12/14/2024 9:30 AM EST Office Visit Cardiology, [facility] 132 [facility] [place] [address] Nicole Severino PA-C [address] [facility] [place] [address] 01/20/2025 10:40 AM EDT Telemedicine Rheumatology, [place] [address] [place], [place] [phone] Tessa Duque [address] [place] [address] 03/24/2025 9:40 AM EDT Office Visit Family Practice, [facility] [address] [place] [phone] Dylan Barros MD [address] [place] [address] 04/01/2025 11:20 AM EDT Office Visit Sleep Disorders [facility] [address] [facility] [place] [phone] Riddhi Cook, [address] [facility] [place] [address] Scheduled Procedures Name Priority Associated Diagnoses Date/Ti me COLONOSCOPY FLEXIBLE PROXIMA L DIAGNOSTIC Recall History of colonic polyps Health Maintenance Due Date Last Done Comments Cologuard 1995 Sigmoidoscopy 1995 Fecal Occult Blood Test 07/07/2001 07/07/2000 Adult Wellness Visit 2016 COVID-19 Vaccine ( season) 2024 08/01/2022, 08/18/2021, 12/24/2020, Additional history exists Albumin/Creatinine Ratio 07/08/2024 07/08/2023, 08/0 06/2022 Mammogram 01/19/2025 01/20/2024, 2 10/2022, 07/15/2001 HbA1c 03/21/2025 09/21/2024, 05/0 03/2024, 07/08/2023, Additional history exists DXA Scan 04/30/2025 04/30/2018 Depression Monitoring 06/14/2025 06/14/2024 DTap/Tdap Vaccines (3 - Td or Tdap) 07/18/2025 07/18/2015, 06/06/2005 Diabetic Eye Exam 09/17/2025 09/17/2024, (Done elsewhere), 09/15/2023, Additional history exists GFR 09/21/2025 09/21/2024, 02/25, 03/08/2024, Additional history exists TSH 09/21/2025 09/21/2024, 1 11/2023, 07/08/2023, Additional history exists Colonoscopy 01/14/2027 01/15/2024, 2 10/2023, 02/26/2021 Colorectal Cancer Screening 01/14/2027 Diabetic Foot Exam Discontinued 06/28/2022 Zoster Vaccines Completed 07/16/2023, 030 12/2022, 06/14/2015 Influenza Vaccine (FLU shot) Completed [...] this encounter Medical Devices Implanted Type Area Resident Care Provider Device Identifier Shelf Expiration Date Model / Serial / Lot Lead Pace Selectsecure 3830-69 - [id number] Implanted:Qty: 1 on 11/18/2022 by Nora Antonio DO at OR [facility] Lead Left: Heart [employer] : [facility] 10/18/2024 [id number] / / Description:RV LBBB Lead Novus Bipolar 52cm - [id number] - [id number] Implanted:Qty: 1 on 11/18/2022 by Nora Antonio DO at OR [facility] Lead Left: Heart [employer] : [facility] 09/23/2024 5076-52 / [id number] / Description:RA Pacemaker Dana Xt Dr Jocelyn ls - [id number] - [id number] Implanted:Qty: 1 on 11/18/2022 by Nora Antonio DO at OR [facility] Pacemaker Left: Chest [employer] 04/09/2024 [id number] / [id number] / Lens Intraoc 26.5 - [id number] - [id number] Implanted:Qty: 1 on 02/23/2019 by Jonas Valentino MD at OR [facility] Right: Eye BAUSCH & LOMB 05/26/2023 [id number] / [id number] / [id number] Lens Intraoc 24.5 - [id number] - [id number] Implanted:Qty: 1 on 03/02/2019 by Jonas Valentino MD at OR [facility] Left: Eye BAUSCH & LOMB 08/26/2023 [id number] / [id number] / [id number] Envelope Antibacterial Tyrx - [id number] Implanted:Qty: 1 on 11/18/2022 by Nora Antonio DO at OR [facility] [employer] : [facility] [id number] 08/09/2023 CMR M6122 / / [id number] documented as of this encounter Advance Directives * Full Code (Latest Code Status on File) Date Activated Date Inactivated Comments 04/05/2021 7:37 AM 04/05/2021 4:11 PM This order r eflects the patients wishes and were consensually agreed upon. Question Answer Comments Discussion of Advance Directives occurred with: Not Discussed Care Teams Thread Grinder Relationship Specialty Start Date End Date Dylan Barros MD PCP - General Family Medicine 11/07/23 documented as of this encounter
--- OUTSIDE RECORDS SUMMARY | 2024-10-21 19:02 | External Medical Summary | Summary of Care ---
Author Name Unknown Organization [facility] Address [address] [place] [address] Phone [phone] Care Team Providers Care Colorist Dyer Name Role Phone Dylan Barros MD Primary Care Provider [phone]- [phone] Reason for Visit * Reason Onset Date Comments Test Results 10/14/2024 Encounter Details Date Type Department Care Team (Late st Contact Info) Description 10/14/2024 Telephone [facility] [place] [address] [place] [address] Shaggy Curry MD [address] [place] [address] Test Results Allergies Active Allergy Reactions Criticality Noted Date [...] before bedtime. 180 Tablet 3 4 Active nGameTouch Verio w/Device Kit Use up to 4 times a day E11.9 1 Kit 4 Active predniSONE 10 MG Oral Tablet (Deltasone)Indic ations:PMR (polymyalgia rheumatica) ([facility]) Take 1 Tablet by mouth in the morning. 90 Tablet 4 Active Additional Information Patient not taking.Reported on 10/04/2024 predniSONE 2.5 MG Oral Tablet (Deltasone)Indic ations:PMR (polymyalgia rheumatica) ([facility]) Take 1 [...] mouth daily. 90 Tablet 3 4 Active nGameToDresden Silicon Ultra Test In Vitro Strip (Glucose Blood)Indication [...] Tablet (Deltasone)Indic ations:PMR (polymyalgia rheumatica) ([facility]) Take 1 [...] AHI was 17.1 DME: [facility], [place] Titration study 04/27/12 set pressure of 8 [...] (Prevnar) 12/13/2015 Pneumococcal Conjugate Vacci ne, 20-valent ([id number]) 09/21/2024 Pneumococcal Polysaccharide PPV23 (Pneumovax) 08/22/2014 Seasonal [...] Miscellaneous Notes * Telephone Encounter - Radha Ramirez LPN - 10/14/2024 8:32 AM EST Pt informed, verbalizes understanding; pt states she is still feeling off balance, does not feel her rt thigh has increased in size, about the same in size; if symptoms worsen, she will call the clinic or go directly to er * Telephone Encounter - Shaggy Curry MD - 10/14/2024 7:15 AM EST Please call patient Her hemoglobin has dropped significantly. If she is experiencing dizziness or lightheadedness she needs to let us know or if this is significant report to the Emergency Room. Her hemoglobin is not low enough that she would require a transfusion if she does not have symptoms. If she feels like her right thigh is increasing in size we may also need to have her go to the Emergency Room. Please reassure her that if she is not having these symptoms that likely her bleeding has stopped at this point and thing should begin improving. documented in this encounter Plan of Treatment Upcoming Encounters Date Type Department Care Team (Late st Contact Info) Description 10/22/2024 8:45 AM EST Office Visit Cardiology, [facility] [address] [facility] [place] [address] Nora Antonio, DO [address] [facility] [address] 12/14/2024 9:30 AM EST Office Visit Cardiology, [facility] [address] [place] [address] Nicole Severino PA-C 132 [facility] [place] [address] 01/20/2025 10:40 AM EDT Telemedicine Rheumatology, [place] [address], [place] [id number] Tessa Duque, [address] [place] [address] 03/24/2025 9:40 AM EDT Office Visit [facility] [address] [facility] [place] [phone] Dylan Barros MD [address] [place] [address] 04/01/2025 11:20 AM EDT Office Visit Sleep Disorders [facility] [address] [place] [phone] Riddhi Cook, DO 132 [facility] [place] [address] Scheduled Procedures Name Priority Associated Diagnoses Date/Ti me COLONOSCOPY FLEXIBLE PROXIMA L DIAGNOSTIC Recall History of colonic polyps Health Maintenance Due Date Last Done Comments Cologuard 1995 Sigmoidoscopy 1995 Fecal Occult Blood Test 07/07/2001 07/07/2000 Adult Wellness Visit 2016 COVID-19 Vaccine ( season) 2024 08/01/2022, 08/18/2021, 12/24/2020, Additional history exists Albumin/Creatinine Ratio 07/08/2024 07/08/2023, 0806/2022 Mammogram 01/19/2025 01/20/2024, 12/26, 07/15/2001 HbA1c 03/21/2025 09/21/2024, 0503/2024, 07/08/2023, Additional history exists DXA Scan 04/30/2025 [...] this encounter Medical Devices Implanted Type Area Healthcare Risk Control Consultant Device Identifier Shelf Expiration Date Model / Serial / Lot Lead Pace Selectsecure [id number] - [id number] Implanted:Qty: 1 on 11/18/2022 by Nora Antonio DO at OR [facility] Lead Left: Heart [employer] : [facility] 10/18/2024 [id number] / / Description:RV LBBB Lead Novus Bipolar 52cm - [id number] - [id number] Implanted:Qty: 1 on 11/18/2022 by Nora Antonio DO at OR [facility] Lead Left: Heart [employer] : CAR 09/23/2024 5076-52 / [id number] / Description:RA Pacemaker Dana Xt Dr Banks ls - [id number] - [id number] Implanted:Qty: 1 on 11/18/2022 by Nora Antonio DO at OR [facility] Pacemaker Left: Chest [employer] 04/09/2024 [id number] / [id number] / Lens Intraoc 26.5 - [id number] - [id number] Implanted:Qty: 1 on 02/23/2019 by Jonas Valentino MD at OR [facility] Right: Eye [employer]USCH [employer] LOMB 05/26/2023 [id number] / [id number] / [id number] Lens Intraoc 24.5 - [id number] - [id number] Implanted:Qty: 1 on 03/02/2019 by Jonas Valentino MD at OR [facility] Left: Eye BAUSCH [employer] LOMB 08/26/2023 [id number] / [id number] / [id number] Envelope Antibacterial Tyrx - [id number] Implanted:Qty: 1 on 11/18/2022 by Nora Antonio DO at OR [facility] [employer] : [facility] [id number] 08/09/2023 CMR [id number] / / [id number] documented as of this encounter Advance Directives * Full Code (Latest Code Status on File) Date Activated Date Inactivated Comments 04/05/2021 7:37 AM 04/05/2021 4:11 PM This order r eflects the patients wishes and were consensually agreed upon. Question Answer Comments Discussion of Advance Directives occurred with: Not Discussed Care Teams Colorist Dyer Relationship Specialty Start Date End Date Dylan Barros MD PCP - General Family Medicine 11/07/23 documented as of this encounter
--- OUTSIDE RECORDS SUMMARY | 2024-10-21 19:02 | External Medical Summary | Summary of Care ---
Author Name Unknown Organization [facility] Address [address] [place] [address] Phone [phone] Care Team Providers Care Electronic Device Repairer Name Role Phone Dylan Barros MD Primary Care Provider [phone]- [phone] Reason for Referral * Evaluate & Treat - Unlimited Visits (Within 10 days (routine)) - Authorized Specialty Diagnoses / Procedures Referred By Raiza dsouza Referred To Contact Physical Therapy / Physical Medicine And Rehab Diagnoses Hip pain, right Acute pain of left knee Acute left ankle pain Shaggy Curry MD [address] [place] [address] Phone: tel: fax: Referral ID Status Reason Start Date Expiration Date Visits Requested Visits Authorized [id number] Authorized Specialty Services Required 4 999 999 Question Answer Referral Priority Within 10 days (routine) Where should this appointment be scheduled? [facility] * Medication Prior Authorization - Closed Specialty Diagnoses / Procedures Referred By Conttasneem t Referred To Contact Diagnoses Hip pain, right Acute pain of left knee Acute left ankle pain Shaggy Curry MD [address] [place] [address] Phone: tel: fax: Referral ID Status Reason Start Date Expiration Date Visits Re quested Visits Authorized [id number] Closed 999 999 Reason for Visit * Reason Comments Emergency Department Follow-Up Encounter Details Date Type Department Care Team (Late st Contact Info) Description 10/13/2024 9:40 AM EST Office Visit [facility] [place] [address] [place] [phone] Shaggy Curry MD [address] [place] [address] Fall, subsequent encounter*; Hip pain, right; Acute pain of left knee; Acute left ankle pain Allergies Active Allergy Reactions Criticality Noted Date Comments Albuterol High 04/04/2022 Other reaction(s): racing heart Citalopram 04/04/2022 Other reaction(s): Unknown Sulfa Antibiotics Hives Medium 07/07/2000 documented as of this encounter (statuses as of 10/13/2024) Medications MULTIVITAMINS PO TABS 1 tablet daily [...] before bedtime. 180 Tablet 3 4 Active FlyDataTouch Verio w/Device Kit Use up to 4 [...] mouth daily. 90 Tablet 3 4 Active FlyDataTouch Ultra Test In Vitro Strip (Glucose Blood)Indication [...] 24 Hour (toPROL XL)Indications:P aroxysmal atrial fibrillation ([facility]) Take 1 Tablet by [...] as of this encounter (statuses as of 10/13/2024) Active Problems Problem Noted Date Diagnosed Date [...] AHI was 17.1 DME: [facility], [place] Titration study 04/27/12 set pressure of 8 cm HTN, goal below 130/80 01/09/2011 Chronic coronary artery disease 09/15/2010 Overview (09/15/2010): Cath 2007 - 30% mid LAD stenosis Dyslipidemia, goal LDL below 70 09/15/2010 documented as of this encounter (statuses as of 10/13/2024) Resolved Problems Problem Noted Date Diagnosed Date Resolved Date Obstructive sleep apnea 11/28/2011 04/2 Overview (11/28/2011): AHI 8..2 in April 2008 documented as of this encounter (statuses as of 10/13/2024) Immunizations Name Administration Dates Next Due COVID-19 mRNA, LNP-s, No Pre serve, 2-Dose Series (Moderna) 12/24/2020,11/19/2020 COVID-19, mRNA, LNP-s, PF, B ooster, 100mcg/0.5mg (Moderna) 08/18/2021 Covid-19, Mrna, Lnp-s, Pf, B ivalent, 30 Mcg, IM, 12 yrs and above (PrecisionHawk) 08/01/2022 DT - Diptheria/Tetanus (PEDS) 06/06/2005 Pneumococcal Conjugate Vacc, 13 Valent (Prevnar) 12/13/2015 Pneumococcal Conjugate Vacci ne, 20-valent (Ybeculn40) 09/21/2024 Pneumococcal Polysaccharide PPV23 (Pneumovax) 08/22/2014 Seasonal [...] Sign Reading Time Taken Comments Blood Pressure 120/62 10/13/2024 9:45 AM EST Pulse 64 10/13/2024 9:45 AM EST Temperature 37.3 C (99.2 F) 10/13/2024 9:45 AM ES T Respiratory Rate 16 10/13/2024 9:45 AM EST Oxygen Saturation 97% 10/13/2024 9:45 AM EST Inhaled Oxygen Concentration - - Weight 100.2 kg (221 lb) 10/13/2024 9:45 AM EST Height - - Body Mass Index 39.15 10/04/2024 9:35 AM EST documented in this encounter Progress Notes * Shaggy Curry MD - 10/13/2024 10:05 AM EST Subjective Ángel Kim is a 74 year old female that presents for Emergency Department Follow-Up Patient slipped and fell on October 07 on a porch. She was seen at [facility] ER. Records indicate she had CT scans and x-rays that did not show any acute injuries. Having a lot of pain. Was given tramadol which made her sleep but pain was not helped much. Tight hip and thigh hurting, left knee hurting. Tried a half tramadol and that did nothing. Tylenol does not seem to help. She states she had her babies naturally and she does well with pain and she is not doing well. States she does not like to take opioids. They make her constipated. Does get some heartburn, not taking any medication. Objective BP 120/62 | Pulse 64 | Temp 99.2 F (37.3 C) (Tympanic) | Resp 16 | Wt 221 lb (100.2 kg) | LMP 08/19/2000 | SpO2 97% | BMI 39.15 kg/m | BSA 2.11 m Body mass index is 39.15 kg/m. BP Readings from Last 3 Encounters: 10/13/24 120/62 10/04/24 133/90 09/24/24 120/64 Wt Readings from Last 3 Encounters: 10/13/24 221 lb (100.2 kg) 10/04/24 216 lb (98 kg) 09/21/24 219 lb 14.4 oz (99.7 kg) Physical Exam Constitutional: Appearance: She is obese. Comments: Cleaning Porter: Whitney Eyes: Extraocular Movements: Extraocular movements intact. Conjunctiva/sclera: Conjunctivae normal. Pupils: Pupils are equal, round, and reactive to light. Musculoskeletal: Comments: No point tenderness of the right greater trochanter. No hip pain with internal or external rotation. General tenderness to soft tissue palpation. Range of motion appears normal in all joints but patient is slow moving due to pain. Left ankle without bony tenderness. There is some tenderness with squeezing of the calf. Skin: Findings: Bruising present. Comments: Significant bruising of the right thigh medially and posteriorly. No palpable hematoma atthis time. Bruising of the anterior and inferior left knee. There was generalized tenderness to palpation of all these areas. Also light bruising over the left lateral ankle. Neurological: Mental Status: She is alert. Assessment and plan: Problem List Items Addressed This Visit Fall - Primary Significant bruising on exam. We will check a CBC. Patient on Eliquis for AFib and states she does have palpitations from time to time so it is better that she remain on her Eliquis. Patient has beentaking low-dose Tylenol. I suggested she increase to 1000 mg 3 times a day. We also discussed otheroptions for pain and decided to try Lyrica given her other medical conditions this seemed to be the safest with least side effects. She still has tramadol at home which she may take as needed for breakthrough pain. We will also refer to physical therapy to help her get moving again and for future prevention. Relevant Orders CBC Acute pain of left knee Likely superficial bruising, refer to fall Relevant Medications Pregabalin 75 MG Oral Capsule (Lyrica) Other Relevant Orders PHYSICAL THERAPY REFERRAL OP Acute left ankle pain Possible high ankle sprain. We will refer to physical therapy Relevant Medications Pregabalin 75 MG Oral Capsule (Lyrica) Other Relevant Orders PHYSICAL THERAPY REFERRAL OP Hip pain, right Given initial imaging was negative for fracture likely superficial pain and bruising remain. Refer to fall diagnosis. If pain is not improved within 2 weeks consider repeat x-rays. Relevant Medications Pregabalin 75 MG Oral Capsule (Lyrica) Other Relevant Orders PHYSICAL THERAPY REFERRAL OP Plan CBC PHYSICAL THERAPY REFERRAL OP Pregabalin 75 MG Oral Capsule (Lyrica) Follow up Follow-up: Return if symptoms worsen or fail to improve. | Check-out note: Lab today PT referral Based on the problems addressed, the amount and complexity of data, and the risk of patient management; the medical decision making for this visit is Moderate Total time today including reviewing chart before the visit, pertinent labs, imaging reports, face to face time, and documentation time was 33 minutes. The above was discussed and understanding was expressed. Shaggy Curry MD documented in this encounter Nursing Notes * Linda Dozier LPN - 10/13/2024 9:40 AM EST Chief Complaint Patient presents with Emergency Department Follow-Up Pt seen at [facility] 10/07 after falling. She states she has a lot of bruising and swelling of the righthip and leg. She also has pain left knee. She was given Tramadol for pain. States it makes her sleep but didn't help the pain so she switched to Tylenol but it is nor helping. States she is having a lot of trouble ambulating. documented in this encounter Miscellaneous Notes * Assessment & Plan Note - Shaggy Curry MD - 10/13/2024 10:39 AM EST Associated Problem(s): Hip pain, right Given initial imaging was negative for fracture likely superficial pain and bruising remain. Refer to fall diagnosis. If pain is not improved within 2 weeks consider repeat x-rays. * Assessment & Plan Note - Shaggy Curry MD - 10/13/2024 10:38 AM EST Associated Problem(s): Acute left ankle pain Possible high ankle sprain. We will refer to physical therapy * Assessment & Plan Note - Shaggy Curry MD - 10/13/2024 10:38 AM EST Associated Problem(s): Acute pain of left knee Likely superficial bruising, refer to fall * Assessment & Plan Note - Shaggy Curry MD - 10/13/2024 10:38 AM EST Associated Problem(s): Fall Significant bruising on exam. We will check a CBC. Patient on Eliquis for AFib and states she does have palpitations from time to time so it is better that she remain on her Eliquis. Patient has beentaking low-dose Tylenol. I suggested she increase to 1000 mg 3 times a day. We also discussed otheroptions for pain and decided to try Lyrica given her other medical conditions this seemed to be the safest with least side effects. She still has tramadol at home which she may take as needed for breakthrough pain. We will also refer to physical therapy to help her get moving again and for future prevention. documented in this encounter Plan of Treatment Upcoming Encounters Date Type Department Care Team (Late st Contact Info) Description 10/22/2024 8:45 AM EST Office Visit [facility] [place] [address] Nora Antonio, [address] [place] [address] 12/14/2024 9:30 AM EST Office Visit Cardiology, [facility] [place] [address] Nicole Severino PA-C [facility] [place] [address] 01/20/2025 10:40 AM EDT Telemedicine Rheumatology, [place] [address] [place] [address] Tessa Duque, DO [address] [place] [address] 03/24/2025 9:40 AM EDT Office Visit Family [facility] [address] [place] [phone] Dylan Barros MD 226 [facility] [place] [address] 04/01/2025 11:20 AM EDT Office Visit Sleep Disorders [facility] [address] [facility] [place] [phone] Riddhi Cook 132 [facility] [place] [address] Pending Results Name Type Priority Associated Diagnoses Date /Time CBC Lab Routine Fall, subsequent encounter 10/13/2024 10:43 AM EST Scheduled Orders Name Type Priority Associated Diagnoses Orde r Schedule CBC Lab Routine Fall, subsequent encounter Expected: 10/13/2024 (Approximate), Expires: 10/13/2025 Scheduled Procedures Name Priority Associated Diagnoses Date/Ti me COLONOSCOPY FLEXIBLE PROXIMA L DIAGNOSTIC Recall History of colonic polyps Scheduled Referrals Name Type Priority Associated Diagnoses Orde r Schedule PHYSICAL THERAPY REFERRAL OP Referral Within 10 days (routine) Hip pain, right Acute pain of left knee Acute left ankle pain Ordered: 10/13/2024 Health Maintenance Due Date Last Done Comments [...] this encounter Medical Devices Implanted Type Area Special Order Jeweler Device Identifier Shelf Expiration Date Model / Serial / Lot Lead Pace [facility] 3830-69 - [id number] Implanted:Qty: 1 on 11/18/2022 by Nora Antonio DO at OR [facility] Lead Left: Heart [employer] : [facility] 10/18/2024 [id number] / / Description:RV LBBB Lead Novus Bipolar 52cm - [id number] - [id number] Implanted:Qty: 1 on 11/18/2022 by Nora Antonio DO at OR [facility] Lead Left: Heart [employer] : [facility] 09/23/2024 5076-52 / [id number] / Description:RA Pacemaker Dana Xt Dr Banks [facility] - [id number] - [id number] Implanted:Qty: 1 on 11/18/2022 by Nora Antonio DO at OR [facility] Pacemaker Left: Chest [employer] 04/09/2024 [id number] / [id number] / Lens Intraoc 26.5 - [id number] - [id number] Implanted:Qty: 1 on 02/23/2019 by Jonas Valentino MD at OR [facility] Right: Eye [employer]CH [employer] LOMB 05/26/2023 [id number] / [id number] / [id number] Lens Intraoc 24.5 - [id number] - [id number] Implanted:Qty: 1 on 03/02/2019 by Jonas Valentino MD at OR [facility] Left: Eye BAUSCH [employer] LOMB 08/26/2023 [id number] / [id number] / [id number] Envelope Antibacterial Tyrx - [id number] Implanted:Qty: 1 on 11/18/2022 by Nora Antonio DO at OR [facility] [employer] : [facility] [id number] 08/09/2023 [facility] [id number] / / [id number] documented as of this encounter Visit Diagnoses Diagnosis Fall, subsequent encounter- Primary Hip pain, right Pain in joint, pelvic region and thigh Acute pain of left knee Acute left ankle pain documented in this encounter Advance Directives * Full Code (Latest Code Status on File) Date Activated Date Inactivated Comments 04/05/2021 7:37 AM 04/05/2021 4:11 PM This order r eflects the patients wishes and were consensually agreed upon. Question Answer Comments Discussion of Advance Directives occurred with: Not Discussed Care Teams Electronic Device Repairer Relationship Specialty Start Date End Date Dylan Barros MD [address] [place] [address] PCP - General Family Medicine 11/07/23 documented as of this encounter"
--- OUTSIDE RECORDS SUMMARY | 2024-10-21 19:02 | External Medical Summary | Summary of Care ---
Author Name Unknown Organization [facility] Address [address] [place] [address] Phone [phone] Care Team Providers Care Photo Optics Technician Name Role Phone Dylan Barros MD Primary Care Provider +1- [phone] Reason for Visit * Reason Onset Date Comments Medication Pre-auth 10/14/2024 Pregabalin Encounter Details Date Type Department Care Team (Late st Contact Info) Description 10/14/2024 Telephone [facility] 21 [facility] [address] Shaggy Curry MD 21 [place] [address] Medication Pre-auth (Pregabalin) Allergies Active [...] before bedtime. 180 Tablet 3 4 Active Zen Planner Verio w/Device Kit Use up to 4 times a day E11.9 1 Kit 4 Active predniSONE 10 MG Oral Tablet (Deltasone)Indic ations:PMR (polymyalgia rheumatica) ([facility]) Take 1 Tablet by mouth in the morning. 90 Tablet 4 Active Additional Information Patient not taking.Reported on 10/04/2024 predniSONE 2.5 MG Oral Tablet (Deltasone)Indic ations:PMR (polymyalgia rheumatica) ([facility]) Take 1 Tablet by mouth in [...] A1c goal of less than 7.0% ([facility]) Take 1 Tablet by mouth daily. 90 Tablet 3 4 Active OneTouch Ultra Test In Vitro Strip (Glucose Blood)Indication s:Type 2 diabetes mellitus with hemoglobin A1c goal of less than 7.0% ([facility]) Use to check blood sugars once per day Dx E11.9 100 Strip 5 4 Active hydroCHLOROthiaz giuliano 25 MG Oral Tablet (Hydrodiuril)Ind ications:Chronic coronary artery disease,HTN, goal below 130/80 TAKE 1 TABLET BY MOUTH EVERY MORNING 90 Tablet 4 Active predniSONE 5 MG Oral Tablet (Deltasone)Indic ations:PMR (polymyalgia rheumatica) ([facility]) Take 1 Tablet by mouth in [...] AHI was 17.1 DME: [facility], [place] Titration study 04/27/12 set pressure of 8 [...] (Prevnar) 12/13/2015 Pneumococcal Conjugate Vacci ne, 20-valent ([id number]) 09/21/2024 Pneumococcal Polysaccharide PPV23 (Pneumovax) 08/22/2014 Seasonal [...] No 01/06/2024 Does the household have a [facility] cent[facility] source of income? (Household - for ages [...] encounter Miscellaneous Notes * Telephone Encounter - Shaggy Curry MD - 10/18/2024 5:34 PM EST I would call patient and let her know the decision of the insurance company. If she wanted to use good Rx and go to a big box pharmacy it looks like the prices at [facility] and [facility] run from 19-24 dollars. * Telephone Encounter [...] [place] submitted for Pregabalin thru [facility] Dominguez: [id number] documented in this encounter Plan of Treatment Upcoming Encounters Date Type Department Care Team (Late st Contact Info) Description 10/22/2024 8:45 AM EST Office Visit Cardiology, [facility] 132 [facility] [place] [address] Nora Antonio, 400 [facility] [place] [address] 12/14/2024 9:30 AM EST Office Visit Cardiology, [facility] 132 [facility] [place] [address] Nicole Severino PA-C 132 [facility] [place] [address] 01/20/2025 10:40 AM EDT Telemedicine Rheumatology, [place] [address] [place] [address] Tessa Duque [address] [place] [facility] [address] 03/24/2025 9:40 AM EDT Office Visit [facility] [place] [phone] Dylan Barros MD 226 [facility] [place] [address] 04/01/2025 11:20 AM EDT Office Visit Sleep Disorders [facility] [address] [place] [address] Riddhi Cookaret, [address] [place] [address] Scheduled Procedures Name Priority Associated Diagnoses Date/Ti [...] this encounter Medical Devices Implanted Type Area Global Account Manager Device Identifier Shelf Expiration Date Model / Serial / Lot Lead Pace Selectsecure 3830-69 - [id number] Implanted:Qty: 1 on 11/18/2022 by Nora Antonio DO at OR [facility] Lead Left: Heart [employer] : CAR 10/18/2024 [id number] / / Description:RV LBBB Lead Novus Bipolar 52cm - [id number] - [id number] Implanted:Qty: 1 on 11/18/2022 by Nora Antonio DO at OR [facility] Lead Left: Heart [employer] : CRM 09/23/2024 5076-52 / [id number] / Description:RA Pacemaker Central Xt Dr Banks Wrls - [id number] - [id number] Implanted:Qty: 1 on 11/18/2022 by Nora Antonio DO at OR [facility] Pacemaker Left: Chest [employer] 04/09/2024 [id number] / [id number] / Lens Intraoc 26.5 - [id number] - [id number] Implanted:Qty: 1 on 02/23/2019 by Jonas Valentino MD at OR [facility] Right: Eye BAUSCH & LOMB 05/26/2023 [id number] / [id number] / [id number] Lens Intraoc 24.5 - [id number] - [id number] Implanted:Qty: 1 on 03/02/2019 by Jonas Valentino MD at OR [facility] Left: Eye BAUSCH & LOMB 08/26/2023 [id number] / [id number] / [id number] Envelope Antibacterial Tyrx - [id number] Implanted:Qty: 1 on 11/18/2022 by Nora Antonio DO at OR [facility] [employer] : CRM [id number] 08/09/2023 CMR M6122 / / [id number] documented as of this encounter Advance Directives * Full Code (Latest Code Status on File) Date Activated Date Inactivated Comments 04/05/2021 7:37 AM 04/05/2021 4:11 PM This order r eflects the patients wishes and were consensually agreed upon. Question Answer Comments Discussion of Advance Directives occurred with: Not Discussed Care Teams Photo Optics Technician Relationship Specialty Start Date End Date Dylan Barros MD PCP - General Family Medicine 11/07/23 documented as of this encounter
--- OUTSIDE RECORDS SUMMARY | 2024-10-21 19:02 | External Medical Summary | Summary of Care ---
Author Name Unknown Organization [facility] Address [address] [place] [address] Phone [phone] Care Team Providers Care Maintenance Machinist Name Role Phone Dylan Barros MD Primary Care Provider +1- [phone] Reason for Visit * Reason Onset Date Comments Test Results 10/14/2024 Encounter Details Date Type Department Care Team (Late st Contact Info) Description 10/14/2024 Telephone [facility] 21 [place] [address] Shaggy Curry MD 21 [place] [address] Test Results Allergies Active Allergy [...] before bedtime. 180 Tablet 3 4 Active Borders GroupTouch Verio w/Device Kit Use up to 4 times a day E11.9 1 Kit 4 Active predniSONE 10 MG Oral Tablet (Deltasone)Indic ations:PMR (polymyalgia rheumatica) ([facility]) Take 1 Tablet by mouth in the morning. 90 Tablet 4 Active Additional Information Patient not taking.Reported on 10/04/2024 predniSONE 2.5 MG Oral Tablet (Deltasone)Indic ations:PMR (polymyalgia rheumatica) ([facility]) Take 1 Tablet by mouth in the [...] goal of less than 7.0% ([facility]) Take 1 Tablet by mouth daily. 90 Tablet 3 4 Active Borders GroupToBoom Financial Ultra Test In Vitro Strip (Glucose Blood)Indication s:Type 2 diabetes mellitus with hemoglobin A1c goal of less than 7.0% ([facility]) Use to check blood sugars once per day Dx E11.9 100 Strip 5 4 Active hydroCHLOROthiaz giuliano 25 MG Oral Tablet (Hydrodiuril)Ind ications:Chronic coronary artery disease,HTN, goal below 130/80 TAKE 1 TABLET BY MOUTH EVERY MORNING 90 Tablet 4 Active predniSONE 5 MG Oral Tablet (Deltasone)Indic ations:PMR (polymyalgia rheumatica) ([facility]) Take 1 Tablet by mouth in the [...] AHI was 17.1 DME: [facility], [place] Titration study 04/27/12 set pressure of 8 [...] (Prevnar) 12/13/2015 Pneumococcal Conjugate Vacci ne, 20-valent (Rchpxnk46) 09/21/2024 Pneumococcal Polysaccharide PPV23 (Pneumovax) 08/22/2014 Seasonal [...] on file Are you (or your family) pardaise eless or worried that you might be [...] 10/22/2024 8:45 AM EST Office Visit Cardiology, [facility] 132 [facility] [place] [address] Nora Antonio, DO [address] [facility] [address] 12/14/2024 9:30 AM EST Office Visit Cardiology, [facility] [address] [place] [address] Nicole Severino PA-C 132 [facility] [place] [address] 01/20/2025 10:40 AM EDT Telemedicine Rheumatology, [place] [address] [place], [place] [address] Tessa Duque, [address] [place] [address] 03/24/2025 9:40 AM EDT Office Visit [facility] 226 [facility] [place] [phone] Dylan Barros MD 226 [place] [address] 04/01/2025 11:20 AM EDT Office Visit Sleep Disorders [facility] [address] [place] [phone] Riddhi Cook, DO 132 [facility] [place] [address] Scheduled Procedures Name Priority Associated Diagnoses Date/Ti [...] this encounter Medical Devices Implanted Type Area Metal Fabricating Inspector Device Identifier Shelf Expiration Date Model / Serial / Lot Lead Pace Selectsecure 3830-69 - [id number] Implanted:Qty: 1 on 11/18/2022 by Nora Antonio DO at OR [facility] Lead Left: Heart [employer] : [facility] 10/18/2024 [id number] / / Description:RV LBBB Lead Novus Bipolar 52cm - [id number] - [id number] Implanted:Qty: 1 on 11/18/2022 by Nora Antonio DO at OR [facility] Lead Left: Heart [employer] : CAR 09/23/2024 5076-52 / [id number] / Description:RA Pacemaker Dana Xt Dr Banks ls - [id number] - [id number] Implanted:Qty: 1 on 11/18/2022 by Nora Antonio DO at OR [facility] Pacemaker Left: Chest [employer] 04/09/2024 W1DR01 / [id number] / Lens Intraoc 26.5 - [id number] - [id number] Implanted:Qty: 1 on 02/23/2019 by Jonas Valentino MD at OR [facility] Right: Eye BAUSCH & LOMB 05/26/2023 [id number] / [id number] / [id number] Lens Intraoc 24.5 - [id number] - [id number] Implanted:Qty: 1 on 03/02/2019 by Jonas Valentino MD at OR [facility] Left: Eye BAUSCH & LOMB 08/26/2023 [id number] / [id number] / [id number] Envelope Antibacterial Tyrx - [id number] Implanted:Qty: 1 on 11/18/2022 by Nora Antonio DO at OR [facility] [employer] : [facility] [id number] 08/09/2023 CMR M6122 / / [id number] documented as of this encounter Advance Directives * Full Code (Latest Code Status on File) Date Activated Date Inactivated Comments 04/05/2021 7:37 AM 04/05/2021 4:11 PM This order r eflects the patients wishes and were consensually agreed upon. Question Answer Comments Discussion of Advance Directives occurred with: Not Discussed Care Teams Maintenance Machinist Relationship Specialty Start Date End Date Dylan Barros MD PCP - General Family Medicine 11/07/23 documented as of this encounter
--- OUTSIDE RECORDS SUMMARY | 2024-10-21 19:02 | External Medical Summary | Summary of Care ---
Author Name Unknown Organization [facility] Address [address] [place] [address] Phone [phone] Care Team Providers Care Still Operator Helper Name Role Phone Dylan Barros MD Primary Care Provider +1- [phone] Reason for Visit * Reason Comments Outpatient Testing Encounter Details Date Type Department Care Team (Late st Contact Info) Description 10/13/2024 10:40 AM EST Laboratory Laboratory, [place] [address] [place] [address] [facility] 21 [place] [address] PMR (polymyalgia rheumatica) ([facility]); High risk medication use; Fall, subsequent encounter; HTP Research Other*[id number] Allergies Active Allergy Reactions Criticality Noted Date [...] A1c goal of less than 7.0% ([facility]) Take 1 Tablet by mouth daily. 90 Tablet 3 4 Active Arccos GolfTouch Ultra Test In Vitro Strip (Glucose Blood)Indication s:Type 2 diabetes mellitus with hemoglobin A1c goal of less than 7.0% ([facility]) Use to check blood sugars once per day Dx E11.9 100 Strip 5 4 Active hydroCHLOROthiaz giuliano 25 MG Oral Tablet (Hydrodiuril)Ind ications:Chronic coronary artery disease,HTN, goal below 130/80 TAKE 1 TABLET BY MOUTH EVERY MORNING 90 Tablet 4 Active predniSONE 5 MG Oral Tablet (Deltasone)Indic ations:PMR (polymyalgia rheumatica) ([facility]) Take 1 Tablet by mouth in the [...] AHI was 17.1 DME: [facility], [place] Titration study 04/27/12 set pressure of 8 [...] (Prevnar) 12/13/2015 Pneumococcal Conjugate Vacci ne, 20-valent (Fbsvyqe41) 09/21/2024 Pneumococcal Polysaccharide PPV23 (Pneumovax) 08/22/2014 Seasonal [...] No 01/06/2024 Does the household have a [facility] hospitall[facility] source of income? (Household - for [...] 10/22/2024 8:45 AM EST Office Visit Cardiology, [facility] 132 [place] [address] Nora Antonio, DO [address] [place] [address] [place] [address] 12/14/2024 9:30 AM EST Office Visit Cardiology, [facility] 132 [place] [address] Nicole Severino PA-C 132 [place] [address] 01/20/2025 10:40 AM EDT Telemedicine Rheumatology, [place] [address] [place] [address] Tessa Duque, DO [address] [place] [address] 03/24/2025 9:40 AM EDT Office Visit [facility] [phone] Dylan Barros MD 226 [facility] [place] [address] 04/01/2025 11:20 AM EDT Office Visit Sleep Disorders Ctr [facility] 132 [facility] [place] [phone] Riddhi Cook, 132 [facility] [place] [address] Pending Results Name Type Priority Associated Diagnoses Date /Time ERYTHROCYTE SEDIMENTATION RATE (ESR) Lab Routine PMR (polymyalgia rheumatica) ([facility]) 10/13/2024 10:43 AM EST CRP (INFLAMMATORY MARKER) Lab Routine PMR (polymyalgia rheumatica) ([facility]) 10/13/2024 10:43 AM EST CBC Lab Routine Fall, subsequent encounter 10/13/2024 10:43 AM EST MYCODE SUBSEQUENT ADULT Lab Routine MyCode Research Other*[id number] 10/13/2024 10:44 AM EST MYCODE SST1 Lab Routine MyCode Research Other*[id number] 10/13/2024 10:44 AM EST MYCODE SST2 Lab Routine MyCode Research Other*[id number] 10/13/2024 10:44 AM EST Scheduled Procedures Name Priority Associated [...] this encounter Medical Devices Implanted Type Area [employer] Registrar Device Identifier Shelf Expiration Date Model / Serial / Lot Lead Pace [facility] 3830-69 - [id number] Implanted:Qty: 1 on 11/18/2022 by Nora Antonio DO at OR [facility] Lead Left: Heart [employer] : [facility] 10/18/2024 [id number] / / Description:RV LBBB Lead Novus Bipolar 52cm - [id number] - [id number] Implanted:Qty: 1 on 11/18/2022 by Nora Antonio DO at OR [facility] Lead Left: Heart [employer] : [facility] 09/23/2024 5076-52 / [id number] / Description:RA Pacemaker Codell Xt Dr Banks [facility] - [id number] - [id number] Implanted:Qty: 1 on 11/18/2022 by Nora Antonio DO at OR [facility] Pacemaker Left: Chest [employer] 04/09/2024 W1DR01 / [id number] / Lens Intraoc 26.5 - [id number] - [id number] Implanted:Qty: 1 on 02/23/2019 by Jonas Valentino MD at OR [facility] Right: Eye BAUSCH & LOMB 05/26/2023 [id number] / [id number] / [id number] Lens Intraoc 24.5 - [id number] - [id number] Implanted:Qty: 1 on 03/02/2019 by Jonas Valentino MD at OR [facility] Left: Eye BAUSCH & LOMB 08/26/2023 [id number] / [id number] / [id number] Envelope Antibacterial Tyrx - [id number] Implanted:Qty: 1 on 11/18/2022 by Nora Antonio DO at OR [facility] [employer] : [facility] [id number] 08/09/2023 [facility] M6122 / / [id number] documented as of this encounter Visit Diagnoses Diagnosis Fall, subsequent encounter- Primary Hip pain, right Pain in joint, pelvic region and thigh Acute pain of left knee Acute left ankle pain PMR (polymyalgia rheumatica) (HCC) Polymyalgia rheumatica High risk medication use Encounter for long-term (current) use of other medications Fall, subsequent encounter MyCode Research Other*[id number] documented in this encounter Advance Directives * Full Code (Latest Code Status on File) Date Activated Date Inactivated Comments 04/05/2021 7:37 AM 04/05/2021 4:11 PM This order r eflects the patients wishes and were consensually agreed upon. Question Answer Comments Discussion of Advance Directives occurred with: Not Discussed Care Teams Still Operator Helper Relationship Specialty Start Date End Date Dylan Barros MD [address] [facility] [place] [address] PCP - General Family Medicine 11/07/23 documented as of this encounter
--- OUTSIDE RECORDS SUMMARY | 2024-10-21 19:02 | External Medical Summary | Summary of Care ---
Author Name Unknown Organization [facility] Address [address] [place] [address] Phone [phone] Care Team Providers Care Director Of People Name Role Phone Dylan Barros MD Primary Care Provider +1- [phone] Reason for Visit * Reason Onset Date Comments Test Results 10/14/2024 Encounter Details Date Type Department Care Team (Late st Contact Info) Description 10/14/2024 Telephone [facility] 21 [place] [address] Shaggy Curry MD 21 [place] [address] Test Results Allergies Active Allergy [...] before bedtime. 180 Tablet 3 4 Active P21Touch Verio w/Device Kit Use up to 4 [...] mouth daily. 90 Tablet 3 4 Active P21ToIntelclinic Ultra Test In Vitro Strip (Glucose Blood)Indication [...] AHI was 17.1 DME: [facility], [place] Titration study 04/27/12 set pressure of 8 [...] (Prevnar) 12/13/2015 Pneumococcal Conjugate Vacci ne, 20-valent (Dqhtfhd64) 09/21/2024 Pneumococcal Polysaccharide PPV23 (Pneumovax) 08/22/2014 Seasonal [...] 10/22/2024 8:45 AM EST Office Visit Cardiology, [facility] [address] [place] [address] Marisela Nora Herring, DO 400 [facility] [place] [address] 12/14/2024 9:30 AM EST Office Visit Cardiology, [facility] 132 [facility] [place] [address] Nicole Severino PA-C 132 [facility] [place] [address] 01/20/2025 10:40 AM EDT Telemedicine Rheumatology, [place] [address] [place] [address] Tessa Duque [address] [place] [address] 03/24/2025 9:40 AM EDT Office Visit [facility] 226 [place] [phone] Dylan Barros MD 226 [place] [address] 04/01/2025 11:20 AM EDT Office Visit Sleep Disorders [facility] 132 [facility] [place] [phone] Riddhi Cook, 132 [facility] [place] [address] Scheduled Procedures Name Priority Associated Diagnoses Date/Ti [...] 09/15/2023, Additional history exists GFR 09/21/2025 09/21/2024, 2 01/2024, 03/08/2024, Additional [...] this encounter Medical Devices Implanted Type Area Jack Strip Assembler Device Identifier Shelf Expiration Date Model / Serial / Lot Lead Pace [facility] 3830-69 - [id number] Implanted:Qty: 1 on 11/18/2022 by Nora Antonio, DO at OR [facility] Lead Left: Heart MED[employer] : [facility] 10/18/2024 [id number] / / Description:RV LBBB Lead Novus Bipolar 52cm - [id number] - [id number] Implanted:Qty: 1 on 11/18/2022 by Nora Antonio DO at OR [facility] Lead Left: Heart [employer] : [facility] 09/23/2024 5076-52 / [id number] / Description:RA Pacemaker Peconic Xt Dr Jocelyn [facility] - [id number] - [id number] Implanted:Qty: 1 on 11/18/2022 by Nora Antonio DO at OR [facility] Pacemaker Left: Chest [employer] 04/09/2024 W1DR01 / [id number] / Lens Intraoc 26.5 - [id number] - [id number] Implanted:Qty: 1 on 02/23/2019 by Jonas Valentino MD at OR [facility] Right: Eye BAUSCH & LOMB 05/26/2023 [id number] 5 / [id number] / [id number] Lens Intraoc 24.5 - [id number] - [id number] Implanted:Qty: 1 on 03/02/2019 by Jonas Valentino MD at OR [facility] Left: Eye BAUSCH & LOMB 08/26/2023 [id number] 5 / [id number] / [id number] Envelope Antibacterial Tyrx - [id number] Implanted:Qty: 1 on 11/18/2022 by Nora Antonio DO at OR [facility] MED[employer] : [facility] [id number] 08/09/2023 [facility] M6122 / / [id number] documented as of this encounter Advance Directives * Full Code (Latest Code Status on File) Date Activated Date Inactivated Comments 04/05/2021 7:37 AM 04/05/2021 4:11 PM This order r eflects the patients wishes and were consensually agreed upon. Question Answer Comments Discussion of Advance Directives occurred with: Not Discussed Care Teams Director Of People Relationship Specialty Start Date End Date Dylan Barros MD PCP - General Family Medicine 11/07/23 documented as of this encounter
--- OUTSIDE RECORDS SUMMARY | 2024-10-21 19:03 | External Medical Summary ---
Author Name Unknown Address Unknown Organization [id number]:[facility] [place] [address] [place] [address] Laboratory Report Ordering Provider Test Date Status NORAH BARRETT 10/13/2024 10:44:46 Final Observation Date Value Abnormality Reference (Units ) Status MYCODE SPECIMEN-SST 10/13/2024 10:44:46 Freezing of extracted DNA, whole blood and/or serum. Final Performing Location [facility] [place] [address] [place] [address]
--- OUTSIDE RECORDS SUMMARY | 2024-10-21 19:03 | External Medical Summary ---
Author Name Unknown Address Unknown Organization [id number]:[facility] [place] [facility] [place]note 2] [address] [facility] [address] [facility] [address] Laboratory Report Ordering Provider Test Date Status ARINA SHAIKH 10/13/2024 10:43:46 Final Observation Date Value Abnormality Reference (Units ) Status WBC, Total 10/13/2024 10:43:46 8.77 4.00-10.80 (K/uL) Final RBC 10/13/2024 10:43:46 2.74 3.85-5.15 (M/uL) Final Hemoglobin 10/13/2024 10:43:46 9.1 Below low normal 12.0-15.3 (g/dL) Final HCT 10/13/2024 10:43:46 29.3 Below low normal 36.0-45.2 (%) Final MCV 10/13/2024 10:43:46 106.9 81.5-97.5 (fL) Final MCH 10/13/2024 10:43:46 33.2 27.0-34.0 (pg) Final MCHC 10/13/2024 10:43:46 31.1 32.0-36.0 (g/dL) Final RDW 10/13/2024 10:43:46 15.0 11.5-15.5 (%) Final Platelets 10/13/2024 10:43:46 196 140-400 (K/uL) Final MPV 10/13/2024 10:43:46 12.6 6.6-11.1 (fL) Final Nucleated erythrocytes/100 leukocytes [Ratio] in Blood by Automated count 10/13/2024 10:43:46 1 Above high normal <=0 (/100 WBCs) Final Performing Location [facility] [place] [address] [place] [address]
--- OUTSIDE RECORDS SUMMARY | 2024-10-21 19:03 | External Medical Summary ---
Author Name Unknown Address Unknown Organization [id number]:[facility] [place] [address] [place] [address] Laboratory Report Ordering Provider Test Date Status RASHEED MARIE 10/13/2024 10:43:46 Final Observation Date Value Abnormality Reference (Units ) Status Erythrocyte sedimentation rate by Photometric method 10/13/2024 10:43:46 32 Above high normal <30 (mm/hour) Final Performing Location [facility] [place] [address] [place] [address]
--- OUTSIDE RECORDS SUMMARY | 2024-10-21 19:03 | External Medical Summary ---
Author Name Unknown Address Unknown Organization [id number]:[facility] [place] - [address] [place] [address] Laboratory Report Ordering Provider Test Date Status RASHEED MARIE 10/13/2024 10:43:46 Final Observation Date Value Abnormality Reference (Units ) Status CRP, low-sensitivity 10/13/2024 10:43:46 33 Above high normal <=5 (mg/L) Final Performing Location [facility] [place] - [address] [place] [id number]
[2024-10-21 19:07] LABS: Basophils # (auto) 0.02 K/uL (0.00-0.20); Basophils % (auto) 0.3 %; Eosinophils # (auto) 0.05 K/uL (0.00-0.50); Eosinophils % (auto) 0.7 %; Hematocrit (blood only) 35.1 % (37.0-47.0); Hemoglobin 11.6 g/dl (12.0-16.0); Immature Granulocytes # (auto) 0.03 K/uL (0.01-0.20); Immature Granulocytes % (auto) 0.4 %; Lymphocytes # (auto) 1.38 K/uL (1.20-3.40); Lymphocytes % (auto) 20.5 %; Mean Corpuscular Hemoglobin 33.5 pg (25.0-34.0); Mean Corpuscular Volume 101.4 fL (80.0-100.0); Mean Platelet Volume 10.8 fL (9.4-12.4); Monocytes # (auto) 0.61 K/uL (0.11-0.59); Monocytes % (auto) 9.1 %; Neutrophils # (auto) 4.65 K/uL (1.40-6.50); Nucleated RBC % (auto) 1.5 %; Platelet Count 279 K/uL (130-400); RDW Coefficient of Variation 17.2 % (11.5-14.5); Red Blood Count 3.46 M/uL (4.20-5.40); White Blood Count 6.74 K/ul (4.8-10.8)
[2024-10-21 19:21] LABS: Alanine Aminotransferase 19 U/L (7-52); Albumin Globulin Ratio 1.5 (0.9-2); Albumin Level 4.4 gm/dl (3.4-5.0); Alkaline Phosphatase 75 U/L (34-104); Anion Gap 8 (3-11); Aspartate Aminotransferase 23 U/L (13-39); BUN Creatinine Ratio 35.7 (10-20); Blood Urea Nitrogen 25 mg/dl (6-23); Calcium 9.9 mg/dl (8.6-10.3); Carbon Dioxide 25 mmol/L (21-32); Chloride 103 mmol/L (98-107); Glucose 138 mg/dl (70-99(Fasting)); Sodium 136 mmol/L (136-145); Total Protein 7.4 gm/dl (6.0-8.3)
[2024-10-21] MEDS: OPTIRAY 320 100ml IV ONE (20:00)
--- NOTE | 2024-10-21 20:04 | Emergency Department Note ---
Impression & Plan Right leg pain, Fall, Contusion of right leg, Hematoma of right thigh, Failure of outpatient treatment, Anticoagulated ED Provider Note NAME: KANE MOJICA AGE: 74 SEX: F : 1950 ARRIVES VIA: Walk-In INFORMANT: [Patient] ED PROVIDER(S): [Asif Silverman MD] CHIEF COMPLAINT: Leg and back pain HISTORY OF PRESENT ILLNESS: The patient is a 74-year-old female who is on Eliquis. She suffered a fall on the , 14 days ago. She was in the ED and her workup was unrevealing. She had significant contusions from the fall. The patient has seen her doctors office in the outpatient setting since her initial fall. Her hemoglobin had dropped a bit and they thought the drop in hemoglobin was secondary to all her bruising. Of note, she is still taking her Eliquis. The patient states that the pain in the back, her right hip and leg has been intense, she cannot sleep. She has tried tramadol, Lyrica, Tylenol without relief. She presents because the pain seems to be the worse rather than better, she can barely get around even with a walker. There has been no fever. No shortness of breath. No anterior abdominal pain. PMHx/PSHx/Social Hx: See Below PHYSICAL EXAM: GENERAL: Patient is in no acute distress. HEENT: No acute trauma, normocephalic atraumatic, mucous membranes moist, no nasal congestion. NECK: No stridor, no adenopathy, no meningismus, trachea is midline. LUNGS: Clear to auscultation bilaterally, no wheeze, no rhonchi, breath sounds equal. HEART: Without murmurs gallops or rubs, regular rate and rhythm. ABDOMEN: Soft, nontender, no peritonitis. EXTREMITIES: No cyanosis. The patient has a significant contusion from the right thigh down to the right ankle. This contusion does appear older. She has some contusion to the left leg as well although, it is far less extensive. No erythema in either leg to suggest cellulitis. She is tender to palpate anywhere about the right leg. NEUROLOGIC: Oriented x 3, no acute motor or sensory deficits, no focal weakness. SKIN: No jaundice, no diaphoresis. DIFFERENTIAL DIAGNOSIS: Hematoma, bleeding, anemia, cellulitis, retroperitoneal bleed, among others. EMERGENCY DEPARTMENT PROCEDURES: MEDICAL DECISION MAKING: There is no leukocytosis. A very subtle anemia was seen. Looking back at previous testing, her hemoglobin has dropped a few points, likely from the contusion/bleeding into the right leg. There was a normal platelet count. No renal failure or significant electrolyte abnormality. No concerning liver enzyme elevation. Abdominal and pelvis CT does not show any retroperitoneal bleeding, no acute findings. The right thigh CT shows a large hematoma in the hamstring. No mention of active extravasation/bleeding. On exam, the patient had a large contusion from the right thigh down to the right ankle. She seemed in pain with palpation of this leg. The patient received IV morphine for pain, IV Zofran for nausea. The patient has failed outpatient management. She is not able to control her pain at home despite meds given by her doctors office. She is now only able to ambulate with a walker. She is not functioning well and, at this point, I do believe requires a hospital stay, PT OT, possibly an orthopedic evaluation/consult. I do think that the hematoma is causing her discomfort. Of note, films of the pelvis and right hip were performed, films of the right knee were performed, no fractures seen. I did talk to the patient about her findings. I spoke with case management, the on-call hospitalist was consulted. Prior/Outside records/notes reviewed: ED visit note from 10/07/2024 discussing her presentation, findings and outpatient plan. Imaging/x-ray results per my interpretation: X-ray of the right hip and pelvis does not show fracture. X-ray of the right knee does not show fracture. Chronic Medical/Social conditions affecting care: Eliquis use, advanced age. Care/Management discussed with: Case management, the on-call hospitalist. Level of care consideration(s): After review of the information above and other included data: --I believe the patient requires escalation of care to admission DISPOSITION: Admission Past Med/Surg History Problem List (Updated 10/21/24 @ 21:51 by Asif Silverman MD) Anticoagulated (Acute) Failure of outpatient treatment (Acute) Hematoma of right thigh (Acute) Contusion of right leg (Acute) Fall (Acute) Right leg pain (Acute) Anticoagulant long-term use (Acute) Contusion of knee, left (Acute) Acute pain of right hip (Acute) Fall (Acute) Hypoxia (Acute) PAF (paroxysmal atrial fibrillation) Acute hypoxic respiratory failure COVID-19 (Acute) Atrial flutter with rapid ventricular response (Acute) Low magnesium level (Acute) Hypokalemia (Acute) Atrial fibrillation/flutter (Acute) Tachy-luis syndrome Depression CAD (coronary artery disease) PMR (polymyalgia rheumatica) Cardiac pacemaker in situ (Acute) Hypomagnesemia Bradycardia Encounter for examination following treatment at hospital H/O atrial fibrillation without current medication Abnormal thyroid function test Unsteady gait when walking Poor balance Decreased hearing of both ears Inflamed seborrheic keratosis Skin tag Abnormal skin growth Multiple pulmonary nodules determined by computed tomography of lung Obstructive sleep apnea (adult) (pediatric) External hemorrhoids Iron deficiency anemia Nasal congestion Abnormal CT of the chest Multiple pulmonary nodules Diabetes mellitus Lumbar radicular pain Periumbilic rebound abdominal tenderness Anxiety Insomnia (Acute) Abnormal CT of the chest Atrial fibrillation with rapid ventricular response (Acute) Elevated liver enzymes (Acute) Thrombocytopenia (Acute) Neutropenia (Acute) Allergic rhinitis (Acute) Arthritis (Acute) CAD in [place] artery (Acute) Depression with anxiety (Chronic) Encounter for long-term (current) use of medications (Acute) Osteopenia (Acute) GERD (gastroesophageal reflux disease) Left bundle branch block (Acute) Hypothyroidism (Chronic) Hypertension (Chronic) Hyperlipidemia (Chronic) Nasal vestibulitis Medical History GIB (gastrointestinal bleeding) Anaplasmosis Infected lesion in nose Concussion Hemorrhoids History of coronary artery disease Surgical History History of esophagogastroduodenoscopy (EGD) 02/22/21 Dr. Pablo Mckay S/P colonoscopy 02/26/21 Dr. Pablo Mckay History of bilateral oophorectomy History of hernia surgery History of back surgery Hx of hysterectomy H/O cardiac catheterization Family History Father Hypertension Heart disease Mother Stroke Other Breast cancer Myocardial infarction No family history of adverse response to anesthesia No family history of bleeding disorder Denies family history of Ovarian cancer Prostate cancer Colorectal cancer Social History Smoking Status: Never smoker Second Hand Exposure: No; Do You Dip or Chew Tobacco: No; Hx Alcohol Use: No Hx Substance Use: No Preferred Language: Setswana Communication Ability: Effective Stretcher And Drier Required: No Beliefs That Will Affect Care: None marital status: Current Living Situation: Spouse Current Living Situation Comment: house current occupational status: retired How many Children do You have: 3 Feels Safe at Home: Yes caffeine: Yes Dental Care, Regularly: Yes Physical Activity Frequency: 1-2 Times per Week Seatbelt Use: always Sunscreen Use: Yes Assistive Devices: Hospital Bed and Oxygen - Continuous Allergies Allergies Allergy/AdvReac Type Severity Reaction Status Date / Time citalopram [From Celexa] Allergy Unknown Unknown Verified 06/29/24 14:36 Sulfa (Sulfonamide Allergy Unknown UNKNOWN Verified 06/29/24 14:36 Antibiotics) albuterol AdvReac Intermediate racing Verified 06/29/24 14:36 heart Home Meds Home Medications Medication Instructions Recorded Confirmed nitroglycerin 0.4 mg sublingual 0.4 mg sublingual Q5M PRN Chest 07/26/19 10/21/24 tablet Pain psyllium husk 3.4 gram/5.4 gram 1 tbs PO DAILY PRN Constipation 03/10/20 10/21/24 oral powder (Metamucil) atorvastatin 20 mg tablet 20 mg PO HS 03/19/20 10/21/24 lorazepam 1 mg tablet 1 mg PO Q8H PRN Anxiety 03/21/20 10/21/24 hydrochlorothiazide 25 mg tablet 25 mg PO DAILY 06/01/20 10/21/24 cholecalciferol (vitamin D3) 25 2,000 unit PO QAM 01/04/21 10/21/24 mcg (1,000 unit) capsule multivitamin 1 tab PO QAM 01/04/21 10/21/24 apixaban 5 mg tablet (Eliquis) 5 mg PO BID 02/26/24 10/21/24 metformin 500 mg tablet,extended 500 mg PO QPM 02/26/24 10/21/24 release 24 hr metoprolol succinate 25 mg 25 mg PO QAM 02/26/24 10/21/24 tablet,extended release 24 hr trazodone 50 mg tablet 25 mg PO QPM PRN Sleep 02/26/24 10/21/24 empagliflozin 10 mg tablet 10 mg PO DAILY 06/29/24 10/21/24 (Jardiance) potassium chloride 20 mEq 20 meq PO BID 06/29/24 10/21/24 tablet,extended release(part/cryst) aspirin 81 mg tablet,delayed 81 mg PO DAILY 09/24/24 10/21/24 release metoprolol succinate 50 mg 50 mg PO QPM 09/24/24 10/21/24 tablet,extended release 24 hr prednisone 1 mg tablet 3 mg PO DAILY 09/24/24 10/21/24 prednisone 5 mg tablet 5 mg PO DAILY 09/24/24 10/21/24 sertraline 100 mg tablet 150 mg PO DAILY 09/24/24 10/21/24 Previous Rx's Medication Instructions Recorded blood sugar diagnostic (OneTouch #100 ea 01/08/21 Ultra Blue Test Strip) levothyroxine 50 mcg tablet 50 mcg PO DAILY #30 tabs 04/04/22 sertraline 100 mg tablet 150 mg (1.5 x 100 mg) PO QAM #45 04/16/22 tabs levalbuterol tartrate 45 2 puff inhalation Q4H PRN 09/27/24 mcg/actuation aerosol inhaler shortness of breath or wheezing 10 (Xopenex HFA) days #15 grams Results & Data (ED) Vital Signs Vital Signs - 24 hr 10/21/24 18:10 10/21/24 20:18 10/21/24 21:00 Temperature 36.5 C Temperature Source Temporal Artery Scan Pulse Rate 63 61 Pulse Rate [Right Finger] 60 Pulse Rhythm Regular Pulse Rhythm [Right Finger] Regular Pulse Strength Normal Pulse Strength [Right Finger] Normal Respiratory Rate 20 19 Respiratory Effort / Characteristics Non-Labored Spontaneous Non-Labored Spontaneous Respiratory Depth Normal Normal Respiratory Pattern Regular Blood Pressure 113/69 Blood Pressure [Right Arm] 153/83 H Blood Pressure Mean 83 Blood Pressure Mean [Right Arm] 106 Blood Pressure Position Sitting Pulse Oximetry 97 96 Oxygen Delivery Method Room Air Room Air Sepsis Recent Fever Within 48 Hours No Sepsis New/Unexplained Change in Mental Status N/A Sepsis Action Taken by Nursing No Action Required Home Medications Current Medication List: was personally reviewed by me Laboratory Data Attestation: I reviewed the patient's lab results. 10/21/24 18:47 10/21/24 18:47 Lab Results 10/21/24 Range/Units 18:47 WBC 6.74 (4.8-10.8) K/ul RBC 3.46 L (4.20-5.40) M/uL Hgb 11.6 L (12.0-16.0) g/dl Hct 35.1 L (37.0-47.0) % MCV 101.4 H (80.0-100.0) fL MCH 33.5 (25.0-34.0) pg MCHC 33.0 (32.0-36.0) g/dL RDW Std Deviation 63.0 H (36.4-46.3) fL RDW Coeff of Vito 17.2 H (11.5-14.5) % Plt Count 279 (130-400) K/uL MPV 10.8 (9.4-12.4) fL Immature Gran % (Auto) 0.4 % Neut % (Auto) 69.0 % Lymph % (Auto) 20.5 % [place] % (Auto) 9.1 % Eos % (Auto) 0.7 % Baso % (Auto) 0.3 % Neut # (Auto) 4.65 (1.40-6.50) K/uL Lymph # (Auto) 1.38 (1.20-3.40) K/uL [place] # (Auto) 0.61 H (0.11-0.59) K/uL Eos # (Auto) 0.05 (0.00-0.50) K/uL Baso # (Auto) 0.02 (0.00-0.20) K/uL Immature Gran # (Auto) 0.03 (0.01-0.20) K/uL Absolute Nucleated RBC 0.10 (0.00-0.12) K/uL Nucleated RBC % (auto) 1.5 % Sodium 136 (136-145) mmol/L Potassium 4.0 (3.5-5.1) mmol/L Chloride 103 (98-107) mmol/L Carbon Dioxide 25 (21-32) mmol/L Anion Gap 8 (3-11) BUN 25 H (6-23) mg/dl Creatinine 0.70 (0.6-1.2) mg/dl Est Cr Clr Drug Dosing Not Reportable eGFR 90.70 BUN/Creatinine Ratio 35.7 H (10-20) Glucose 138 H (70-99(Fasting)) mg/dl Calcium 9.9 (8.6-10.3) mg/dl Total Bilirubin 1.0 (0.2-1.0) mg/dl AST 23 (13-39) U/L ALT 19 (7-52) U/L Alkaline Phosphatase 75 (34-104) U/L Total Protein 7.4 (6.0-8.3) gm/dl Albumin 4.4 (3.4-5.0) gm/dl Globulin 3.0 (2.5-4.0) gm/dl Albumin/Globulin Ratio 1.5 (0.9-2) Administered Medications Morphine Sulfate (Morphine Sulfate 2 Mg/Ml Carp) 2 mg IV Q30M PRN PRN Reason: Pain Stop: 11/04/24 19:44 Last Admin: 10/21/24 20:24 Dose: 2 mg Documented By: KENRICK Discontinued Medications Ioversol (Optiray 320 100ml) 91 ml IV ONCE ONE Stop: 10/21/24 20:01 Last Admin: 10/21/24 20:00 Dose: 91 ml Documented By: MONICA Morphine Sulfate (Morphine Sulfate 4 Mg/Ml 1 Ml Carp\Vial) 4 mg IV NOW STA Stop: 10/21/24 19:46 Last Admin: 10/21/24 20:25 Dose: Not Given Documented By: KENRICK Ondansetron HCl (Ondansetron Inj 2 Mg/Ml 2 Ml Vial) 4 mg IV NOW STA Stop: 10/21/24 19:46 Last Admin: 10/21/24 20:23 Dose: 4 mg Documented By: KENRICK Imaging Data Radiologist's Impression: Hip/Pelvis X-Ray 10/21/24 18:13 EXAM: Radiographs of the Right Hip 3 Views INDICATION: Posttraumatic pain. TECHNIQUE: Front view pelvis and AP and frog leg lateral views of the right hip. COMPARISON: 10/07/2024 FINDINGS: Limitations: None. Bones/joints: No fracture, erosion or dislocation. Soft tissues: No abnormality noted. No radiopaque foreign body noted. IMPRESSION: No radiographic abnormality of the right hip. ACT 112: Negative or not required by law. Electronically signed by Telma Beltran 10-21-2024 6:45 PM Knee X-Ray 10/21/24 18:14 EXAM: Radiographs of the Right Knee 2 Views INDICATION: Posttraumatic pain. TECHNIQUE: Frontal and lateral views of the right knee. COMPARISON: No relevant prior studies available. FINDINGS: Bones/joints: There is mild patellofemoral spurring. There is smooth appearing depression in the lateral margin of the lateral femoral condyle which may reflect an old osteochondral defect. There is no acute fracture. No loose body or erosion. Soft tissues: No abnormality noted. No radiopaque foreign body noted. IMPRESSION: 1. No acute abnormality. 2. Possible old osteochondral defect lateral femoral condyle. ACT 112: Negative or not required by law. Electronically signed by Telma Beltran 10-21-2024 6:46 PM Abdomen/Pelvis CT 10/21/24 19:45 Exam(s): CT ABDOMEN + PELVIS With Contrast IV Amt: 91ml optiray 320 EXAM: CT Abdomen and Pelvis With Intravenous Contrast CLINICAL HISTORY: Reason for exam: poss retroperitoneal bleed. TECHNIQUE: Axial computed tomography images of the abdomen and pelvis with intravenous contrast. CTDI is 28 mGy and DLP is 2271 mGy-cm. Automated exposure control was utilized for the study. A dose lowering technique was utilized adhering to the principles of ALARA. CONTRAST: Patient received 91ml optiray 320 of IV contrast COMPARISON: 10/07/24 FINDINGS: Lung bases: Unremarkable. Heart: [place] cardiac pacer leads. ABDOMEN: Liver: Small benign hepatic cyst. Gallbladder and bile ducts: Unremarkable. No calcified stones. No ductal dilation. Pancreas: Unremarkable. No mass. No ductal dilation. Spleen: Unremarkable. No splenomegaly. Adrenals: Unremarkable. No mass. Kidneys and ureters: Unremarkable. No solid mass. No hydronephrosis. Stomach and bowel: No bowel obstruction. Diverticulosis. No mucosal thickening. PELVIS: Appendix: Normal appendix. Bladder: Unremarkable. No mass. Reproductive: Hysterectomy. ABDOMEN and PELVIS: Intraperitoneal space: Unremarkable. No free fluid or free air. Retroperitoneal space: Unremarkable. No evidence of intra-abdominal or retroperitoneal hemorrhage. Bones/joints: Degenerative changes in the thoracolumbar spine. No acute fracture. No dislocation. Soft tissues: Unremarkable. Vasculature: Atherosclerosis without aortic aneurysm. Lymph nodes: Unremarkable. No enlarged lymph nodes. IMPRESSION: No evidence of intra-abdominal or retroperitoneal hemorrhage. Electronically signed by: Angelica Johnson M.D. 10/21/24 20:[address] 10/21/24 19:45 Exam(s): CT EXTREMITY RIGHT LOWER With Contrast IV Amt: 91ml optiray 320 EXAM: CT Right Lower Extremity With Intravenous Contrast CLINICAL HISTORY: Reason for exam: poss ongoing bleeding. TECHNIQUE: Axial computed tomography images of the right lower extremity with intravenous contrast. CTDI is 27 mGy and DLP is 970.8 mGy-cm. Automated exposure control was utilized for the study. A dose lowering technique was utilized adhering to the principles of ALARA. CONTRAST: Patient received 91ml optiray 320 of IV contrast COMPARISON: No relevant prior studies available. FINDINGS: Bones/joints: Unremarkable. No acute fracture or dislocation. Soft tissues: Complex intramuscular collection in the proximal right hamstrings musculature (predominantly the biceps femoris and semitendinosus muscles) measuring 1.5 x 3.0 x 15.4 cm (axial 125, coronal 81). This extends from the hamstrings origin distally within the muscle belly. IMPRESSION: Complex intramuscular collection in the proximal right hamstrings musculature (predominantly the biceps femoris and semitendinosus muscles) measuring 1.5 x 3.0 x 15.4 cm (axial 125, coronal 81). This extends from the hamstrings origin distally within the muscle belly. Appearance could represent intramuscular hematoma. Integrity of the underlying tendon is not confirmed. Electronically signed by: Angelica Johnson M.D. 10/21/24 20:41 PM Discharge Plan Visit Data Chief Complaint: Back Injury/Pain Stated Complaint: FALL, 10/07/24, RT LEG PAIN, BACK, RT HIP ED Provider: Asif Silverman Discharge Problem: Right leg pain, Fall, Contusion of right leg, Hematoma of right thigh, Failure of outpatient treatment, Anticoagulated Patient Disposition: Admitted As Inpatient Condition: Fair Forms Stand Alone Forms: [facility] [employer] Prescriptions Prescriptions: No Action (DME) OneTouch Ultra Blue Test Strip Strip See Rx Instructions .ROUTE .MEDSUPPLY Qty: 100 5RF Rx Instructions: Please test once in the morning and once throughout day sertraline 100 mg tablet 150 mg PO QAM Qty: 45 11RF nitroglycerin 0.4 mg tablet, sublingual 0.4 mg SL Q5M PRN (Reason: Chest Pain) Metamucil 3.4 gram/5.4 gram powder 1 tbs PO DAILY PRN (Reason: Constipation) cholecalciferol (vitamin D3) 25 mcg (1,000 unit) capsule 2,000 unit PO QAM multivitamin Tablet 1 tab PO QAM levothyroxine 50 mcg tablet 50 mcg PO DAILY Qty: 30 5RF Rx Instructions: DOSE CHANGE 04/04/22 Take 1.5 tablets every other day alternating with 1 tablet daily hydrochlorothiazide 25 mg tablet 25 mg PO DAILY Hold Instructions: Hold for 2 days and then resume Jardiance 10 mg tablet 10 mg PO DAILY atorvastatin 20 mg tablet 20 mg PO HS lorazepam 1 mg Tablet 1 mg PO Q8H PRN (Reason: Anxiety) metoprolol succinate 25 mg tablet extended release 24 hr 25 mg PO QAM metformin 500 mg tablet extended release 24 hr 500 mg PO QPM trazodone 50 mg tablet 25 mg PO QPM PRN (Reason: Sleep) Eliquis 5 mg tablet 5 mg PO BID potassium chloride 20 mEq tablet,ER particles/crystals 20 meq PO BID prednisone 5 mg tablet 5 mg PO DAILY metoprolol succinate 50 mg tablet extended release 24 hr 50 mg PO QPM prednisone 1 mg tablet 3 mg PO DAILY sertraline 100 mg tablet 150 mg PO DAILY aspirin 81 mg Tablet,Delayed Release (Dr/Ec) 81 mg PO DAILY levalbuterol tartrate [Xopenex HFA] 45 mcg/actuation Hfa Aerosol Inhaler 2 puff inhalation Q4H PRN (Reason: shortness of breath or wheezing) 10 Days Qty: 15 1RF Referrals Referrals: Dylan Barros MD [Primary Care Provider] - Discharge Problem: Fall Qualifiers: Encounter type: subsequent encounter Qualified Code(s): W19.XXXD - Unspecified fall, subsequent encounter Contusion of right leg Qualifiers: Encounter type: subsequent encounter Qualified Code(s): S80.11XD - Contusion of right lower leg, subsequent encounter Hematoma of right thigh Qualifiers: Encounter type: subsequent encounter Qualified Code(s): S70.11XD - Contusion of right thigh, subsequent encounter
[2024-10-21] MEDS: ONDANSETRON INJ 2 MG/ML 2 ML VIAL IV STA (20:23)
[2024-10-21] MEDS: MoRPHine SULFATE 2 MG/ML CARP IV PRN (20:24)
[2024-10-21] MEDS: MoRPHine SULFATE 4 MG/ML 1 ML CARP\\VIAL IV STA (20:25)
--- NOTE | 2024-10-21 20:31 | CT Scan Report ---
Exam(s): CT ABDOMEN + PELVIS With Contrast IV Amt: 91ml optiray 320 EXAM: CT Abdomen and Pelvis With Intravenous Contrast CLINICAL HISTORY: Reason for exam: poss retroperitoneal bleed. TECHNIQUE: Axial computed tomography images of the abdomen and pelvis with intravenous contrast. CTDI is 28 mGy and DLP is 2271 mGy-cm. Automated exposure control was utilized for the study. A dose lowering technique was utilized adhering to the principles of ALARA. CONTRAST: Patient received 91ml optiray 320 of IV contrast COMPARISON: 10/07/24 FINDINGS: Lung bases: Unremarkable. Heart: [place] cardiac pacer leads. ABDOMEN: Liver: Small benign hepatic cyst. Gallbladder and bile ducts: Unremarkable. No calcified stones. No ductal dilation. Pancreas: Unremarkable. No mass. No ductal dilation. Spleen: Unremarkable. No splenomegaly. Adrenals: Unremarkable. No mass. Kidneys and ureters: Unremarkable. No solid mass. No hydronephrosis. Stomach and bowel: No bowel obstruction. Diverticulosis. No mucosal thickening. PELVIS: Appendix: Normal appendix. Bladder: Unremarkable. No mass. Reproductive: Hysterectomy. ABDOMEN and PELVIS: Intraperitoneal space: Unremarkable. No free fluid or free air. Retroperitoneal space: Unremarkable. No evidence of intra-abdominal or retroperitoneal hemorrhage. Bones/joints: Degenerative changes in the thoracolumbar spine. No acute fracture. No dislocation. Soft tissues: Unremarkable. Vasculature: Atherosclerosis without aortic aneurysm. Lymph nodes: Unremarkable. No enlarged lymph nodes. IMPRESSION: No evidence of intra-abdominal or retroperitoneal hemorrhage. Electronically signed by: Angelica Johnson M.D. 10/21/24 20:31 PM
--- NOTE | 2024-10-21 20:42 | CT Scan Report ---
Exam(s): CT EXTREMITY RIGHT LOWER With Contrast IV Amt: 91ml optiray 320 EXAM: CT Right Lower Extremity With Intravenous Contrast CLINICAL HISTORY: Reason for exam: poss ongoing bleeding. TECHNIQUE: Axial computed tomography images of the right lower extremity with intravenous contrast. CTDI is 27 mGy and DLP is 970.8 mGy-cm. Automated exposure control was utilized for the study. A dose lowering technique was utilized adhering to the principles of ALARA. CONTRAST: Patient received 91ml optiray 320 of IV contrast COMPARISON: No relevant prior studies available. FINDINGS: Bones/joints: Unremarkable. No acute fracture or dislocation. Soft tissues: Complex intramuscular collection in the proximal right hamstrings musculature (predominantly the biceps femoris and semitendinosus muscles) measuring 1.5 x 3.0 x 15.4 cm (axial 125, coronal 81). This extends from the hamstrings origin distally within the muscle belly. IMPRESSION: Complex intramuscular collection in the proximal right hamstrings musculature (predominantly the biceps femoris and semitendinosus muscles) measuring 1.5 x 3.0 x 15.4 cm (axial 125, coronal 81). This extends from the hamstrings origin distally within the muscle belly. Appearance could represent intramuscular hematoma. Integrity of the underlying tendon is not confirmed. Electronically signed by: Angelica Johnson M.D. 10/21/24 20:41 PM
--- NOTE | 2024-10-21 22:06 | History & Physical Report ---
Date of Service October 21, 2024 Assessment & Plan (1) Hematoma of right thigh: Plan: 74-year-old female with past medical history significant for type 2 diabetes hyperlipidemia, hypothyroidism, obstructive sleep apnea on CPAP, multiple lung nodules,'s history of nonobstructive CAD, paroxysmal atrial fibrillation, sick sinus syndrome status post pacemaker, hypertension, left bundle branch block, polymyalgia rheumatica, history of microcytic anemia, generalized anxiety disorder, panic disorder, depression comes because of recent fall and right lower extremity pain and ambulatory dysfunction. Patient fell on October 07 and she was in the ER. Imaging studies were okay at that time. She ambulated okay in the ER and was discharged. Since going home she is having worsening pain in the right lower extremity. And also some pain in the left lower ext remity. She is ambulating with a walker. Painful leg movements. As symptoms are not getting better she came back to the ER today. Imaging studies showing right hamstring hematoma. Patient is on Eliquis for A-fib. Denies any blood in stool or black stools. No hematuria. No abdominal pain. No chest pain or shortness of breath. No cough. No fevers. No headache. No blurred visions or double vision. No earache no runny nose or sore throat. Appetite is okay. Currently resting comfortably and hemodynamically stable. Hematoma in right proximal hamstrings musculature Measuring 1.5 X3.0X 15.4 cm Painful leg movements Ambulatory dysfunction Will hold Eliquis and aspirin restart as soon as possible Ortho consult name Pain controlled PT OT History of proximal atrial fibrillation Sick sinus syndrome Status post pacemaker On metoprolol succinate Holding Eliquis to restart as soon as possible if hemoglobin stable Anemia of acute blood loss Hemoglobin 11.6 Hemoglobin 13.3 on 10/07/24 Holding Eliquis Follow labs in a.m. History of nonobstructive CAD On beta-ludy and statin Holding aspirin for now and restart as soon as possible Diabetes Hold home p.o. medication Sliding scale Will monitor Obstructive sleep apnea CPAP nightly Hypothyroidism On Synthyroid Polymyalgia rheumatica On prednisone Generalized disorder Panic disorder Depression On sertraline and Ativan as needed Hypertension On hydrochlorothiazide and metoprolol Monitor Hyperlipidemia On statin DVT prophylaxis SCDs for now Disposition Med/telemetry Full code. History of Present Illness Chief Complaint: Status post fall and right leg pain Primary Care Provider: Dylan Barros MD 74-year-old female with past medical history significant for type 2 diabetes hyperlipidemia, hypothyroidism, obstructive sleep apnea on CPAP, multiple lung nodules,'s history of nonobstructive CAD, paroxysmal atrial fibrillation, sick sinus syndrome status post pacemaker, hypertension, left bundle branch block, polymyalgia rheumatica, history of microcytic anemia, generalized anxiety disorder, panic disorder, depression comes because of recent fall and right lower extremity pain and ambulatory dysfunction. Patient fell on October 07 and she was in the ER. Imaging studies were okay at that time. She ambulated okay in the ER and was discharged. Since going home she is having worsening pain in the right lower extremity. And also some pain in the left lower extremity. She is ambulating with a walker. Painful leg movements. As symptoms are not getting better she came back to the ER today. Imaging studies showing right hamstring hematoma. Patient is on Eliquis for A-fib. Denies any blood in stool or black stools. No hematuria. No abdominal pain. No chest pain or shortness of breath. No cough. No fevers. No headache. No blurred visions or double vision. No earache no runny nose or sore throat. Appetite is okay. Currently resting comfortably and hemodynamically stable. Past medical history. As mentioned above. Past surgical history. Colonoscopy and EGD. Hemorrhoidectomy. Bronchoscopy. Pacemaker placement. Bilateral cataracts. Total abdominal hysterectomy with removal of tubes. Umbilical hernia repair. Social history. . No smoking. No alcohol use. No drug use. Family history. Father had [place]. Mother had stroke. Sister had breast cancer. Sister has hypertension. Daughter has asthma. Allergies Allergy/AdvReac Type Severity Reaction Status Date / Time citalopram [From Celexa] Allergy Unknown Unknown Verified 06/29/24 14:36 Sulfa (Sulfonamide Allergy Unknown UNKNOWN Verified 06/29/24 14:36 Antibiotics) albuterol AdvReac Intermediate racing Verified 06/29/24 14:36 heart Home Medications Medication Instructions Recorded Confirmed Type nitroglycerin 0.4 mg sublingual 0.4 mg sublingual Q5M PRN Chest 07/26/19 10/21/24 History tablet Pain psyllium husk 3.4 gram/5.4 gram 1 tbs PO DAILY PRN Constipation 03/10/20 10/21/24 History oral powder (Metamucil) atorvastatin 20 mg tablet 20 mg PO HS 03/19/20 10/21/24 History lorazepam 1 mg tablet 1 mg PO Q8H PRN Anxiety 03/21/20 10/21/24 History hydrochlorothiazide 25 mg tablet 25 mg PO DAILY 06/01/20 10/21/24 History cholecalciferol (vitamin D3) 25 2,000 unit PO QAM 01/04/21 10/21/24 History mcg (1,000 unit) capsule multivitamin 1 tab PO QAM 01/04/21 10/21/24 History blood sugar diagnostic (OneTouch #100 ea 01/08/21 10/21/24 Rx Ultra Blue Test Strip) levothyroxine 50 mcg tablet 50 mcg PO DAILY #30 tabs 04/04/22 10/21/24 Rx apixaban 5 mg tablet (Eliquis) 5 mg PO BID 02/26/24 10/21/24 History metformin 500 mg tablet,extended 500 mg PO QPM 02/26/24 10/21/24 History release 24 hr metoprolol succinate 25 mg 25 mg PO QAM 02/26/24 10/21/24 History tablet,extended release 24 hr trazodone 50 mg tablet 25 mg PO QPM PRN Sleep 02/26/24 10/21/24 History empagliflozin 10 mg tablet 10 mg PO DAILY 06/29/24 10/21/24 History (Jardiance) potassium chloride 20 mEq 20 meq PO BID 06/29/24 10/21/24 History tablet,extended release(part/cryst) aspirin 81 mg tablet,delayed 81 mg PO DAILY 09/24/24 10/21/24 History release metoprolol succinate 50 mg 50 mg PO QPM 09/24/24 10/21/24 History tablet,extended release 24 hr prednisone 1 mg tablet 3 mg PO DAILY 09/24/24 10/21/24 History prednisone 5 mg tablet 5 mg PO DAILY 09/24/24 10/21/24 History sertraline 100 mg tablet 150 mg PO DAILY 09/24/24 10/21/24 History levalbuterol tartrate 45 2 puff inhalation Q4H PRN 09/27/24 10/21/24 Rx mcg/actuation aerosol inhaler shortness of breath or wheezing 10 (Xopenex HFA) days #15 grams Past Med/Surg History Problem List (Updated 10/22/24 @ 00:06 by Jamil Marie) Anticoagulated (Acute) Failure of outpatient treatment (Acute) Hematoma of right thigh (Acute) Contusion of right leg (Acute) Fall (Acute) Right leg pain (Acute) Hypoxia (Acute) PAF (paroxysmal atrial fibrillation) Acute hypoxic respiratory failure COVID-19 (Acute) Atrial flutter with rapid ventricular response (Acute) Low magnesium level (Acute) Hypokalemia (Acute) Atrial fibrillation/flutter (Acute) Tachy-luis syndrome Depression CAD (coronary artery disease) PMR (polymyalgia rheumatica) Cardiac pacemaker in situ (Acute) Hypomagnesemia Bradycardia Encounter for examination following treatment at hospital H/O atrial fibrillation without current medication Abnormal thyroid function test Unsteady gait when walking Poor balance Decreased hearing of both ears Inflamed seborrheic keratosis Skin tag Abnormal skin growth Multiple pulmonary nodules determined by computed tomography of lung Obstructive sleep apnea (adult) (pediatric) External hemorrhoids Iron deficiency anemia Nasal congestion Abnormal CT of the chest Multiple pulmonary nodules Diabetes mellitus Lumbar radicular pain Periumbilic rebound abdominal tenderness Anxiety Insomnia (Acute) Abnormal CT of the chest Atrial fibrillation with rapid ventricular response (Acute) Elevated liver enzymes (Acute) Thrombocytopenia (Acute) Neutropenia (Acute) Allergic rhinitis (Acute) Arthritis (Acute) CAD in point [place] artery (Acute) Depression with anxiety (Chronic) Encounter for long-term (current) use of medications (Acute) Osteopenia (Acute) GERD (gastroesophageal reflux disease) Left bundle branch block (Acute) Hypothyroidism (Chronic) Hypertension (Chronic) Hyperlipidemia (Chronic) Nasal vestibulitis Medical History GIB (gastrointestinal bleeding) Anaplasmosis Infected lesion in nose Concussion Hemorrhoids History of coronary artery disease Surgical History History of esophagogastroduodenoscopy (EGD) 02/22/21 Dr. Pablo Mckay S/P colonoscopy 02/26/21 Dr. Pablo Mckay History of bilateral oophorectomy History of hernia surgery History of back surgery Hx of hysterectomy H/O cardiac catheterization Family History Father Hypertension Heart disease Mother Stroke Other Breast cancer Myocardial infarction No family history of adverse response to anesthesia No family history of bleeding disorder Denies family history of Ovarian cancer Prostate cancer Colorectal cancer Social History Smoking Status: Never smoker Second Hand Exposure: Yes; Do You Dip or Chew Tobacco: No; Hx Alcohol Use: No Hx Substance Use: No Preferred Language: Syriac Communication Ability: Effective Guest Service Supervisor Required: No Beliefs That Will Affect Care: None marital status: Current Living Situation: Spouse Current Living Situation Comment: Lives in [facility] with current occupational status: retired How many Children do You have: 3 Other Information That Helps Us Care for You: No Feels Safe at Home: Yes caffeine: Yes Dental Care, Regularly: Yes Physical Activity Frequency: 1-2 Times per Week Seatbelt Use: always Sunscreen Use: Yes Assistive Devices: Walker Review of Systems Review of Systems: All systems reviewed & are unremarkable except as noted in HPI & below Physical Exam Physical Exam: General- Not in distress Head- atraumatic Eyes- PERRL. ENT- oropharynx clear Neck- supple, no JVD. Lungs- clear to auscultation no wheezing or crackles Heart- regular rhythm; no murmur, no gallop. Abdomen- normal bowel sounds, soft, nontender, no distension Extremities- bruise seen on right leg thigh to ankle. Bruise seen on left leg below knee. Painful right leg movements Neuro- alert, oriented PERRL, no facial palsy; no dysarthria; moves extremities Results & Data Results & Data Vital Signs (Past 12 Hours) Vital Signs Temp Pulse Pulse Resp BP BP Pulse Ox 10/21/24 21:00 60 19 153/83 H 96 10/21/24 20:18 61 10/21/24 18:10 36.5 C 63 20 113/69 97 O2 Del Method 10/21/24 21:00 Room Air 10/21/24 20:18 10/21/24 18:10 Room Air Diagnostic Findings Laboratory Results WBC 6.74 K/ul (4.8-10.8) 10/21/24 18:47 RBC 3.46 M/uL (4.20-5.40) L 10/21/24 18:47 Hgb 11.6 g/dl (12.0-16.0) L 10/21/24 18:47 Hct 35.1 % (37.0-47.0) L 10/21/24 18:47 MCV 101.4 fL (80.0-100.0) H 10/21/24 18:47 MCH 33.5 pg (25.0-34.0) 10/21/24 18:47 MCHC 33.0 g/dL (32.0-36.0) 10/21/24 18:47 RDW Std Deviation 63.0 fL (36.4-46.3) H 10/21/24 18:47 RDW Coeff of Vito 17.2 % (11.5-14.5) H 10/21/24 18:47 Plt Count 279 K/uL (130-400) 10/21/24 18:47 MPV 10.8 fL (9.4-12.4) 10/21/24 18:47 Immature Gran % (Auto) 0.4 % 10/21/24 18:47 Neut % (Auto) 69.0 % 10/21/24 18:47 Lymph % (Auto) 20.5 % 10/21/24 18:47 [place] % (Auto) 9.1 % 10/21/24 18:47 Eos % (Auto) 0.7 % 10/21/24 18:47 Baso % (Auto) 0.3 % 10/21/24 18:47 Neut # (Auto) 4.65 K/uL (1.40-6.50) 10/21/24 18:47 Lymph # (Auto) 1.38 K/uL (1.20-3.40) 10/21/24 18:47 [place] # (Auto) 0.61 K/uL (0.11-0.59) H 10/21/24 18:47 Eos # (Auto) 0.05 K/uL (0.00-0.50) 10/21/24 18:47 Baso # (Auto) 0.02 K/uL (0.00-0.20) 10/21/24 18:47 Immature Gran # (Auto) 0.03 K/uL (0.01-0.20) 10/21/24 18:47 Absolute Nucleated RBC 0.10 K/uL (0.00-0.12) 10/21/24 18:47 Nucleated RBC % (auto) 1.5 % 10/21/24 18:47 Sodium 136 mmol/L (136-145) 10/21/24 18:47 Potassium 4.0 mmol/L (3.5-5.1) 10/21/24 18:47 Chloride 103 mmol/L (98-107) 10/21/24 18:47 Carbon Dioxide 25 mmol/L (21-32) 10/21/24 18:47 Anion Gap 8 (3-11) 10/21/24 18:47 BUN 25 mg/dl (6-23) H 10/21/24 18:47 Creatinine 0.70 mg/dl (0.6-1.2) 10/21/24 18:47 Est Cr Clr Drug Dosing Not Reportable 10/21/24 18:47 eGFR 90.70 10/21/24 18:47 BUN/Creatinine Ratio 35.7 (10-20) H 10/21/24 18:47 Glucose 138 mg/dl (70-99(Fasting)) H 10/21/24 18:47 Calcium 9.9 mg/dl (8.6-10.3) 10/21/24 18:47 Total Bilirubin 1.0 mg/dl (0.2-1.0) 10/21/24 18:47 AST 23 U/L (13-39) 10/21/24 18:47 ALT 19 U/L (7-52) 10/21/24 18:47 Alkaline Phosphatase 75 U/L (34-104) 10/21/24 18:47 Total Protein 7.4 gm/dl (6.0-8.3) 10/21/24 18:47 Albumin 4.4 gm/dl (3.4-5.0) 10/21/24 18:47 Globulin 3.0 gm/dl (2.5-4.0) 10/21/24 18:47 Albumin/Globulin Ratio 1.5 (0.9-2) 10/21/24 18:47 Impressions Hip/Pelvis X-Ray 10/21/24 18:13 EXAM: Radiographs of the Right Hip 3 Views INDICATION: Posttraumatic pain. TECHNIQUE: Front view pelvis and AP and frog leg lateral views of the right hip. COMPARISON: 10/07/2024 FINDINGS: Limitations: None. Bones/joints: No fracture, erosion or dislocation. Soft tissues: No abnormality noted. No radiopaque foreign body noted. IMPRESSION: No radiographic abnormality of the right hip. ACT 112: Negative or not required by law. Electronically signed by Telma Beltran 10-21-2024 6:45 PM Knee X-Ray 10/21/24 18:14 EXAM: Radiographs of the Right Knee 2 Views INDICATION: Posttraumatic pain. TECHNIQUE: Frontal and lateral views of the right knee. COMPARISON: No relevant prior studies available. FINDINGS: Bones/joints: There is mild patellofemoral spurring. There is smooth appearing depression in the lateral margin of the lateral femoral condyle which may reflect an old osteochondral defect. There is no acute fracture. No loose body or erosion. Soft tissues: No abnormality noted. No radiopaque foreign body noted. IMPRESSION: 1. No acute abnormality. 2. Possible old osteochondral defect lateral femoral condyle. ACT 112: Negative or not required by law. Electronically signed by Telma Beltran 10-21-2024 6:46 PM Abdomen/Pelvis CT 10/21/24 19:45 Exam(s): CT ABDOMEN + PELVIS With Contrast IV Amt: 91ml optiray 320 EXAM: CT Abdomen and Pelvis With Intravenous Contrast CLINICAL HISTORY: Reason for exam: poss retroperitoneal bleed. TECHNIQUE: Axial computed tomography images of the abdomen and pelvis with intravenous contrast. CTDI is 28 mGy and DLP is 2271 mGy-cm. Automated exposure control was utilized for the study. A dose lowering technique was utilized adhering to the principles of ALARA. CONTRAST: Patient received 91ml optiray 320 of IV contrast COMPARISON: 10/07/24 FINDINGS: Lung bases: Unremarkable. Heart: [place] cardiac pacer leads. ABDOMEN: Liver: Small benign hepatic cyst. Gallbladder and bile ducts: Unremarkable. No calcified stones. No ductal dilation. Pancreas: Unremarkable. No mass. No ductal dilation. Spleen: Unremarkable. No splenomegaly. Adrenals: Unremarkable. No mass. Kidneys and ureters: Unremarkable. No solid mass. No hydronephrosis. Stomach and bowel: No bowel obstruction. Diverticulosis. No mucosal thickening. PELVIS: Appendix: Normal appendix. Bladder: Unremarkable. No mass. Reproductive: Hysterectomy. ABDOMEN and PELVIS: Intraperitoneal space: Unremarkable. No free fluid or free air. Retroperitoneal space: Unremarkable. No evidence of intra-abdominal or retroperitoneal hemorrhage. Bones/joints: Degenerative changes in the thoracolumbar spine. No acute fracture. No dislocation. Soft tissues: Unremarkable. Vasculature: Atherosclerosis without aortic aneurysm. Lymph nodes: Unremarkable. No enlarged lymph nodes. IMPRESSION: No evidence of intra-abdominal or retroperitoneal hemorrhage. Electronically signed by: Angelica Johnson M.D. 10/21/24 20:[address] 10/21/24 19:45 Exam(s): CT EXTREMITY RIGHT LOWER With Contrast IV Amt: 91ml optiray 320 EXAM: CT Right Lower Extremity With Intravenous Contrast CLINICAL HISTORY: Reason for exam: poss ongoing bleeding. TECHNIQUE: Axial computed tomography images of the right lower extremity with intravenous contrast. CTDI is 27 mGy and DLP is 970.8 mGy-cm. Automated exposure control was utilized for the study. A dose lowering technique was utilized adhering to the principles of ALARA. CONTRAST: Patient received 91ml optiray 320 of IV contrast COMPARISON: No relevant prior studies available. FINDINGS: Bones/joints: Unremarkable. No acute fracture or dislocation. Soft tissues: Complex intramuscular collection in the proximal right hamstrings musculature (predominantly the biceps femoris and semitendinosus muscles) measuring 1.5 x 3.0 x 15.4 cm (axial 125, coronal 81). This extends from the hamstrings origin distally within the muscle belly. IMPRESSION: Complex intramuscular collection in the proximal right hamstrings musculature (predominantly the biceps femoris and semitendinosus muscles) measuring 1.5 x 3.0 x 15.4 cm (axial 125, coronal 81). This extends from the hamstrings origin distally within the muscle belly. Appearance could represent intramuscular hematoma. Integrity of the underlying tendon is not confirmed. Electronically signed by: Angelica Johnson M.D. 10/21/24 20:41 PM Code Status & VTE Plan VTE Prophylaxis Plan VTE Prophylaxis will be ordered: Yes (1) Hematoma of right thigh Encounter type: subsequent encounter Qualified Code(s): S70.11XD - Contusion of right thigh, subsequent encounter
[2024-10-22] MEDS ORDERED: LEVALBUTEROL TARTRATE 15 GM HFA.AER.AD INH PRN (00:21)
[2024-10-22] MEDS ORDERED: NITROGLYCERIN SL 0.4 MG/TAB TAB SL PRN ×2 (00:21)
[2024-10-22] MEDS ORDERED: traZODone HCL 50 MG TAB PO PRN (00:21)
[2024-10-22] MEDS ORDERED: LORazepam 1 MG TAB PO PRN (00:21)
[2024-10-22] MEDS ORDERED: PSYLLIUM or GUAR GUM FIBER 4GM PACKET PO PRN (00:31)
[2024-10-22] MEDS: oxyCODONE HCL IR 5 MG TAB (IMMEDIATE RELEASE) PO PRN (02:57)
[2024-10-22] MEDS: LEVOTHYROXINE SODIUM 50 MCG TABLET PO SCH (06:37)
[2024-10-22] MEDS ORDERED: predniSONE 5 MG TAB PO SCH (09:00)
[2024-10-22] MEDS ORDERED: predniSONE 1 MG TAB PO SCH (09:00)
[2024-10-22] MEDS: POTASSIUM CHLORIDE CRTAB 20 MEQ TABCR PO SCH (09:14)
[2024-10-22] MEDS: hydroCHLOROthiazide 25 MG TAB PO SCH (09:18)
[2024-10-22] MEDS: SERTRALINE HCL 50 MG TABLET PO SCH (09:18)
[2024-10-22] MEDS: MULTIVITAMIN TAB PO SCH (09:18)
[2024-10-22] MEDS: CHOLECALCIFEROL 25 MCG (1000 UNITS) TAB PO SCH (09:18)
[2024-10-22] MEDS: METOPROLOL SUCC 25MG EXT REL TAB PO SCH (09:18)
[2024-10-22 09:24] LABS: Basophils # (auto) 0.03 K/uL (0.00-0.20); Basophils % (auto) 0.6 %; Eosinophils # (auto) 0.08 K/uL (0.00-0.50); Eosinophils % (auto) 1.6 %; Hematocrit (blood only) 34.3 % (37.0-47.0); Hemoglobin 10.8 g/dl (12.0-16.0); Immature Granulocytes # (auto) 0.02 K/uL (0.01-0.20); Immature Granulocytes % (auto) 0.4 %; Lymphocytes # (auto) 1.91 K/uL (1.20-3.40); Lymphocytes % (auto) 38.3 %; Mean Corpuscular Hgb Conc 31.5 g/dL (32.0-36.0); Mean Corpuscular Volume 104.9 fL (80.0-100.0); Neutrophils # (auto) 2.45 K/uL (1.40-6.50); Neutrophils % (auto) 49.1 %; Nucleated RBC # (auto) 0.03 K/uL (0.00-0.12); Nucleated RBC % (auto) 0.6 %; Platelet Count 229 K/uL (130-400); RDW Coefficient of Variation 17.2 % (11.5-14.5); RDW Standard Deviation 65.2 fL (36.4-46.3); Red Blood Count 3.27 M/uL (4.20-5.40); White Blood Count 4.99 K/ul (4.8-10.8)
[2024-10-22] MEDS ORDERED: Nursing to Pharmacy Communication SCH (09:30)
[2024-10-22 09:32] LABS: BUN Creatinine Ratio 34.2 (10-20); Calcium 9.3 mg/dl (8.6-10.3); Creatinine Clr Calc Pharmacy 75.4 ml/min; Magnesium 1.9 mg/dl (1.7-2.4); Potassium 3.2 mmol/L (3.5-5.1)
[2024-10-22] MEDS: predniSONE 1 MG TAB PO SCH (11:34)
[2024-10-22] MEDS: predniSONE 5 MG TAB PO SCH (11:34)
--- NOTE | 2024-10-22 11:49 | Orthopedic Consultation ---
Date of Consultation October 22, 2024 Assessment & Plan (1) Hematoma of right thigh: IMPRESSION: RLE Hamstring strain with hematoma, pt on Eliquis. PLAN: Conservative treatment. Recommended warm moist compresses. An order was placed for a K-pad with aqua compress machine. Antony bandage lightly applied lower leg elevated with pillows Pain control per primary service PT/OT WBAT, will likely need a walker d/c planning. Continue care per primary service Findings discussed with Dr. Huerta Present on Admission?: Yes Supervising Physician Co-Signing Physician Notes I, Dr. Huerta, saw and examined the patient. I discussed the management with my PA. I reviewed my PAs note and agree with the documented findings and attest to completing the substantive portion of medical decision making and plan of I developed. RLE: Neurovascularly intact. Significant swelling and ecchymosis entire lower leg. Calf and thigh swelling, but soft. History of Present Illness Reason for Consultation: Right thigh hematoma Requesting Physician: Nino Huerta MD Attending Physician: Yeny Cooper MD History of Present Illness 74-year-old female with past medical history significant for type 2 diabetes hyperlipidemia, hypothyroidism, obstructive sleep apnea on CPAP, multiple lung nodules,'s history of nonobstructive CAD, paroxysmal atrial fibrillation, sick sinus syndrome status post pacemaker, hypertension, left bundle branch block, polymyalgia rheumatica, history of microcytic anemia, generalized anxiety disorder, panic disorder, depression comes because of recent fall and right lower extremity pain and ambulatory dysfunction. Patient fell on October 07 and she was in the ER. Imaging studies were okay at that time. She ambulated okay in the ER and was discharged. Since going home she is having worsening pain in the right lower extremity. And also some pain in the left lower extremity. She is ambulating with a walker. Painful leg movements. As symptoms are not getting better she came back to the ER today. Imaging studies showing right hamstring hematoma. Patient is on Eliquis for A-fib. Denies any blood in stool or black stools. No hematuria. No abdominal pain. No chest pain or shortness of breath. No cough. No fevers. No headache. No blurred visions or double vision. No earache no runny nose or sore throat. Appetite is okay. Currently resting comfortably and hemodynamically stable. Allergies Allergy/AdvReac Type Severity Reaction Status Date / Time citalopram [From Celexa] Allergy Unknown Unknown Verified 06/29/24 14:36 Sulfa (Sulfonamide Allergy Unknown UNKNOWN Verified 06/29/24 14:36 Antibiotics) albuterol AdvReac Intermediate racing Verified 06/29/24 14:36 heart Home Medications Medication Instructions Recorded Confirmed Type nitroglycerin 0.4 mg sublingual 0.4 mg sublingual Q5M PRN Chest 07/26/19 10/21/24 History tablet Pain psyllium husk 3.4 gram/5.4 gram 1 tbs PO DAILY PRN Constipation 03/10/20 10/21/24 History oral powder (Metamucil) atorvastatin 20 mg tablet 20 mg PO HS 03/19/20 10/21/24 History lorazepam 1 mg tablet 1 mg PO Q8H PRN Anxiety 03/21/20 10/21/24 History hydrochlorothiazide 25 mg tablet 25 mg PO DAILY 06/01/20 10/21/24 History cholecalciferol (vitamin D3) 25 2,000 unit PO QAM 01/04/21 10/21/24 History mcg (1,000 unit) capsule multivitamin 1 tab PO QAM 01/04/21 10/21/24 History blood sugar diagnostic (OneTouch #100 ea 01/08/21 10/21/24 Rx Ultra Blue Test Strip) levothyroxine 50 mcg tablet 50 mcg PO DAILY #30 tabs 04/04/22 10/21/24 Rx apixaban 5 mg tablet (Eliquis) 5 mg PO BID 02/26/24 10/21/24 History metformin 500 mg tablet,extended 500 mg PO QPM 02/26/24 10/21/24 History release 24 hr metoprolol succinate 25 mg 25 mg PO QAM 02/26/24 10/21/24 History tablet,extended release 24 hr trazodone 50 mg tablet 25 mg PO QPM PRN Sleep 02/26/24 10/21/24 History empagliflozin 10 mg tablet 10 mg PO DAILY 06/29/24 10/21/24 History (Jardiance) potassium chloride 20 mEq 20 meq PO BID 06/29/24 10/21/24 History tablet,extended release(part/cryst) aspirin 81 mg tablet,delayed 81 mg PO DAILY 09/24/24 10/21/24 History release metoprolol succinate 50 mg 50 mg PO QPM 09/24/24 10/21/24 History tablet,extended release 24 hr prednisone 1 mg tablet 3 mg PO DAILY 09/24/24 10/21/24 History prednisone 5 mg tablet 5 mg PO DAILY 09/24/24 10/21/24 History sertraline 100 mg tablet 150 mg PO DAILY 09/24/24 10/21/24 History levalbuterol tartrate 45 2 puff inhalation Q4H PRN 09/27/24 10/21/24 Rx mcg/actuation aerosol inhaler shortness of breath or wheezing 10 (Xopenex HFA) days #15 grams Patient History Medical History GIB (gastrointestinal bleeding) Anaplasmosis Infected lesion in nose Concussion Hemorrhoids History of coronary artery disease Surgical History History of esophagogastroduodenoscopy (EGD) 02/22/21 Dr. Pablo Mckay S/P colonoscopy 02/26/21 Dr. Pablo Mckay History of bilateral oophorectomy History of hernia surgery History of back surgery Hx of hysterectomy H/O cardiac catheterization Family History Father Hypertension Heart disease Mother Stroke Other Breast cancer Myocardial infarction No family history of adverse response to anesthesia No family history of bleeding disorder Denies family history of Ovarian cancer Prostate cancer Colorectal cancer Social History Smoking Status: Never smoker Second Hand Exposure: Yes; Do You Dip or Chew Tobacco: No; Hx Alcohol Use: No Hx Substance Use: No Preferred Language: Tanzanian Communication Ability: Effective [employer] Screen Watcher Required: No Beliefs That Will Affect Care: None marital status: Current Living Situation: Spouse Current Living Situation Comment: Lives in [facility] with current occupational status: retired How many Children do You have: 3 Other Information That Helps Us Care for You: No Feels Safe at Home: Yes caffeine: Yes Dental Care, Regularly: Yes Physical Activity Frequency: 1-2 Times per Week Seatbelt Use: always Sunscreen Use: Yes Assistive Devices: CPAP and Walker Review of Systems Review of Systems: All systems reviewed & are unremarkable except as noted in Subjective Physical Exam Physical Exam: Right lower extremity: Patient has edema and ecchymosis extending from the gluteal fold distally to her ankle on the posterior and posterior medial side of her extremity. She has exquisite tenderness to palpation over both the posterior thigh and calf. She is able to actively dorsi and plantarflex her foot. She has good difficulty performing an active straight leg raise test. Her peripheral pulses are 2+. She tolerates passive knee extension to 0 and flexion slightly beyond 90 degrees without significant discomfort. There are no open skin areas or drainage. There is some slight warmth to both the calf and posterior thigh. Patient is neurovascularly intact. Results & Data Vital Signs (Past 12 Hours) Vital Signs Temp Pulse Pulse Resp BP Pulse Ox O2 Del Method 10/22/24 11:27 36.5 C 60 18 119/73 91 Room Air 10/22/24 07:49 62 10/22/24 07:33 36.8 C 60 20 135/78 91 Room Air 10/22/24 03:26 61 119/75 10/22/24 03:18 36.7 C 60 18 168/82 H 93 Room Air 10/22/24 00:49 61 12 97 10/22/24 00:28 36.6 C 63 14 155/70 H 96 Room Air 10/22/24 00:04 62 FiO2 10/22/24 11:27 10/22/24 07:49 10/22/24 07:33 10/22/24 03:26 10/22/24 03:18 10/22/24 00:49 21 10/22/24 00:28 10/22/24 00:04 Diagnostic Findings Laboratory Results WBC 4.99 K/ul (4.8-10.8) 10/22/24 08:27 RBC 3.27 M/uL (4.20-5.40) L 10/22/24 08:27 Hgb 10.8 g/dl (12.0-16.0) L 10/22/24 08:27 Hct 34.3 % (37.0-47.0) L 10/22/24 08:27 MCV 104.9 fL (80.0-100.0) H 10/22/24 08:27 MCH 33.0 pg (25.0-34.0) 10/22/24 08:27 MCHC 31.5 g/dL (32.0-36.0) L 10/22/24 08: RDW Std Deviation 65.2 fL (36.4-46.3) H 10/22/24 08: RDW Coeff of Vito 17.2 % (11.5-14.5) H 10/22/24 08: Plt Count 229 K/uL (130-400) 10/22/24 08: MPV 11.0 fL (9.4-12.4) 10/22/24 08:27 Immature Gran % (Auto) 0.4 % 10/22/24 08: Neut % (Auto) 49.1 % 10/22/24 08: Lymph % (Auto) 38.3 % 10/22/24 08: [place] % (Auto) 10.0 % 10/22/24 08: Eos % (Auto) 1.6 % 10/22/24 08: Baso % (Auto) 0.6 % 10/22/24 08: Neut # (Auto) 2.45 K/uL (1.40-6.50) 10/22/24 08: Lymph # (Auto) 1.91 K/uL (1.20-3.40) 10/22/24 08: [place] # (Auto) 0.50 K/uL (0.11-0.59) 10/22/24 08:27 Eos # (Auto) 0.08 K/uL (0.00-0.50) 10/22/24 08: Baso # (Auto) 0.03 K/uL (0.00-0.20) 10/22/24 08:27 Immature Gran # (Auto) 0.02 K/uL (0.01-0.20) 10/22/24 08:27 Absolute Nucleated RBC 0.03 K/uL (0.00-0.12) 10/22/24 08: Nucleated RBC % (auto) 0.6 % 10/22/24 08:27 Sodium 141 mmol/L (136-145) 10/22/24 08:27 Potassium 3.2 mmol/L (3.5-5.1) L 10/22/24 08:27 Chloride 104 mmol/L (98-107) 10/22/24 08:27 Carbon Dioxide 32 mmol/L (21-32) 10/22/24 08:27 Anion Gap 5 (3-11) 10/22/24 08:27 BUN 25 mg/dl (6-23) H 10/22/24 08:27 Creatinine 0.73 mg/dl (0.6-1.2) 10/22/24 08:27 Est Cr Clr Drug Dosing 75.4 ml/min 10/22/24 08:27 eGFR 86.24 10/22/24 08:27 BUN/Creatinine Ratio 34.2 (10-20) H 10/22/24 08:27 Glucose 112 mg/dl (70-99(Fasting)) H 10/22/24 08:27 Calcium 9.3 mg/dl (8.6-10.3) 10/22/24 08:27 Magnesium 1.9 mg/dl (1.7-2.4) 10/22/24 08:27 Total Bilirubin 1.0 mg/dl (0.2-1.0) 10/21/24 18:47 AST 23 U/L (13-39) 10/21/24 18:47 ALT 19 U/L (7-52) 10/21/24 18:47 Alkaline Phosphatase 75 U/L (34-104) 10/21/24 18:47 Total Protein 7.4 gm/dl (6.0-8.3) 10/21/24 18:47 Albumin 4.4 gm/dl (3.4-5.0) 10/21/24 18:47 Globulin 3.0 gm/dl (2.5-4.0) 10/21/24 18:47 Albumin/Globulin Ratio 1.5 (0.9-2) 10/21/24 18:47 Impressions Hip/Pelvis X-Ray 10/21/24 18:13 EXAM: Radiographs of the Right Hip 3 Views INDICATION: Posttraumatic pain. TECHNIQUE: Front view pelvis and AP and frog leg lateral views of the right hip. COMPARISON: 10/07/2024 FINDINGS: Limitations: None. Bones/joints: No fracture, erosion or dislocation. Soft tissues: No abnormality noted. No radiopaque foreign body noted. IMPRESSION: No radiographic abnormality of the right hip. ACT 112: Negative or not required by law. Electronically signed by Telma Beltran 10-21-2024 6:45 PM Knee X-Ray 10/21/24 18:14 EXAM: Radiographs of the Right Knee 2 Views INDICATION: Posttraumatic pain. TECHNIQUE: Frontal and lateral views of the right knee. COMPARISON: No relevant prior studies available. FINDINGS: Bones/joints: There is mild patellofemoral spurring. There is smooth appearing depression in the lateral margin of the lateral femoral condyle which may reflect an old osteochondral defect. There is no acute fracture. No loose body or erosion. Soft tissues: No abnormality noted. No radiopaque foreign body noted. IMPRESSION: 1. No acute abnormality. 2. Possible old osteochondral defect lateral femoral condyle. ACT 112: Negative or not required by law. Electronically signed by Telma Beltran 10-21-2024 6:46 PM Abdomen/Pelvis CT 10/21/24 19:45 Exam(s): CT ABDOMEN + PELVIS With Contrast IV Amt: 91ml optiray 320 EXAM: CT Abdomen and Pelvis With Intravenous Contrast CLINICAL HISTORY: Reason for exam: poss retroperitoneal bleed. TECHNIQUE: Axial computed tomography images of the abdomen and pelvis with intravenous contrast. CTDI is 28 mGy and DLP is 2271 mGy-cm. Automated exposure control was utilized for the study. A dose lowering technique was utilized adhering to the principles of ALARA. CONTRAST: Patient received 91ml optiray 320 of IV contrast COMPARISON: 10/07/24 FINDINGS: Lung bases: Unremarkable. Heart: [place] cardiac pacer leads. ABDOMEN: Liver: Small benign hepatic cyst. Gallbladder and bile ducts: Unremarkable. No calcified stones. No ductal dilation. Pancreas: Unremarkable. No mass. No ductal dilation. Spleen: Unremarkable. No splenomegaly. Adrenals: Unremarkable. No mass. Kidneys and ureters: Unremarkable. No solid mass. No hydronephrosis. Stomach and bowel: No bowel obstruction. Diverticulosis. No mucosal thickening. PELVIS: Appendix: Normal appendix. Bladder: Unremarkable. No mass. Reproductive: Hysterectomy. ABDOMEN and PELVIS: Intraperitoneal space: Unremarkable. No free fluid or free air. Retroperitoneal space: Unremarkable. No evidence of intra-abdominal or retroperitoneal hemorrhage. Bones/joints: Degenerative changes in the thoracolumbar spine. No acute fracture. No dislocation. Soft tissues: Unremarkable. Vasculature: Atherosclerosis without aortic aneurysm. Lymph nodes: Unremarkable. No enlarged lymph nodes. IMPRESSION: No evidence of intra-abdominal or retroperitoneal hemorrhage. Electronically signed by: Angelica Johnson M.D. 10/21/24 20:[address] 10/21/24 19:45 Exam(s): CT EXTREMITY RIGHT LOWER With Contrast IV Amt: 91ml optiray 320 EXAM: CT Right Lower Extremity With Intravenous Contrast CLINICAL HISTORY: Reason for exam: poss ongoing bleeding. TECHNIQUE: Axial computed tomography images of the right lower extremity with intravenous contrast. CTDI is 27 mGy and DLP is 970.8 mGy-cm. Automated exposure control was utilized for the study. A dose lowering technique was utilized adhering to the principles of ALARA. CONTRAST: Patient received 91ml optiray 320 of IV contrast COMPARISON: No relevant prior studies available. FINDINGS: Bones/joints: Unremarkable. No acute fracture or dislocation. Soft tissues: Complex intramuscular collection in the proximal right hamstrings musculature (predominantly the biceps femoris and semitendinosus muscles) measuring 1.5 x 3.0 x 15.4 cm (axial 125, coronal 81). This extends from the hamstrings origin distally within the muscle belly. IMPRESSION: Complex intramuscular collection in the proximal right hamstrings musculature (predominantly the biceps femoris and semitendinosus muscles) measuring 1.5 x 3.0 x 15.4 cm (axial 125, coronal 81). This extends from the hamstrings origin distally within the muscle belly. Appearance could represent intramuscular hematoma. Integrity of the underlying tendon is not confirmed. Electronically signed by: Angelica Johnson M.D. 10/21/24 20:41 PM (1) Hematoma of right thigh Encounter type: subsequent encounter Qualified Code(s): S70.11XD - Contusion of right thigh, subsequent encounter
--- NOTE | 2024-10-22 13:17 | Hospitalist Progress Note ---
Date of Service October 22, 2024 Assessment & Plan (1) Hematoma of right thigh: Plan Pt is a 74-year-old female with past medical history significant for type 2 diabetes hyperlipidemia, hypothyroidism, obstructive sleep apnea on CPAP, multiple lung nodules,'s history of nonobstructive CAD, paroxysmal atrial fibrillation, sick sinus syndrome status post pacemaker, hypertension, left bundle branch block, polymyalgia rheumatica, history of microcytic anemia, generalized anxiety disorder, panic disorder, depression presenting after a recent fall and right lower extremity pain and ambulatory dysfunction. Patient fell on October 07 and she was in the ER. Imaging studies were unremarkable at that time. Since going home she is having worsening pain in the right lower extremity. And also some pain in the left lower extremity. She is ambulating with a walker. Painful leg movements. As symptoms are not getting better she came back to the ER. Imaging studies showing right hamstring hematoma. Patient is on Eliquis for A-fib. Hematoma in right proximal hamstrings musculature Measuring 1.5 X3.0X 15.4 cm Painful leg movements Ambulatory dysfunction Will hold Eliquis and aspirin at this time Ortho consulted, appreciate recs -recommending conservative management at this time Pain controlled PT OT History of proximal atrial fibrillation Sick sinus syndrome Status post pacemaker On metoprolol succinate Holding Eliquis to restart as soon as possible if hemoglobin stable Anemia of acute blood loss Hemoglobin 11.6 Hemoglobin 13.3 on 10/07/24 Holding Eliquis Continue to monitor History of nonobstructive CAD On beta-ludy and statin Holding aspirin for now and restart as soon as possible Diabetes Hold home p.o. medication Sliding scale Will monitor Obstructive sleep apnea CPAP nightly Hypothyroidism On Synthyroid Polymyalgia rheumatica On prednisone 8mg q4 week taper by 1 mg Currently on 7 mg dose Follows with Rheumatology Generalized disorder Panic disorder Depression On sertraline and Ativan as needed Hypertension On hydrochlorothiazide and metoprolol Monitor Hyperlipidemia On statin Diet: HH DVT prophylaxis: SCDs for now in setting of hematoma Dispo: PT/OT pending Admission and Anticipated Discharge Date Admission Date: October 21, 2024 Subjective patient was seen laying in bed Noted that she had persistent leg pain as well as abdominal pain Also notes that she has on prednisone for polymyalgia rheumatica Review of Systems Review of Systems: All systems reviewed & are unremarkable except as noted in Subjective Physical Exam Physical Exam: General: Alert, oriented. No acute distress Skin: significant bruising on RLE, tender to palpation, bruising on LLE as well Psych: Appropriate mood and affect HEENT: NC/AT CV: RRR, Resp: Breath sounds clear bilaterally, no increased effort of breathing Abdomen:Soft,tender in LUQ Extremities: significant bruising on RLE, tender to palpation, bruising on LLE as well Results & Data Results & Data Vital Signs (Past 12 Hours) Vital Signs Temp Pulse Pulse Resp BP Pulse Ox O2 Del Method 10/22/24 11:27 36.5 C 60 18 119/73 91 Room Air 10/22/24 07:49 62 10/22/24 07:33 36.8 C 60 20 135/78 91 Room Air 10/22/24 03:26 61 119/75 10/22/24 03:18 36.7 C 60 18 168/82 H 93 Room Air (1) Hematoma of right thigh Encounter type: subsequent encounter Qualified Code(s): S70.11XD - Contusion of right thigh, subsequent encounter
[2024-10-22] MEDS ORDERED: GLUCAGON FOR INJ 1 MG VIAL SQ PRN (19:44)
[2024-10-22] MEDS ORDERED: CARBOHYDRATES FOR HYPOGLYCEMIA PO PRN (19:44)
[2024-10-22] MEDS ORDERED: DEXTROSE 50% 50 ML SYRINGE IV PRN (19:44)
[2024-10-22] MEDS ORDERED: GLUCOSE 10 TAB/TUBE PO PRN (19:44)
[2024-10-22] MEDS ORDERED: GLUCOSE 40% GEL 15 GM TUBE PO PRN (19:44)
[2024-10-22] MEDS: ATORVASTATIN 20 MG TAB PO SCH (20:21)
[2024-10-22] MEDS: METOPROLOL SUCC 50MG EXT REL TAB PO SCH (20:21)
[2024-10-22] MEDS: INSULIN ASPART PER UNIT CHARGE SC SCH (21:42)
[2024-10-23] MEDS: ONDANSETRON INJ 2 MG/ML 2 ML VIAL IV PRN (00:24)
[2024-10-23] MEDS: HYDROmorphone INJ 0.5 MG/0.5 ML SYR IV PRN (00:24)
[2024-10-23] MEDS: LEVOTHYROXINE SODIUM 75 MCG TABLET PO SCH (06:09)
[2024-10-23 07:55] LABS: Hematocrit (blood only) 34.2 % (37.0-47.0); Hemoglobin 11.1 g/dl (12.0-16.0); Mean Corpuscular Hemoglobin 33.1 pg (25.0-34.0); Mean Corpuscular Hgb Conc 32.5 g/dL (32.0-36.0); Mean Corpuscular Volume 102.1 fL (80.0-100.0); Mean Platelet Volume 10.4 fL (9.4-12.4); Nucleated RBC # (auto) 0.02 K/uL (0.00-0.12); Nucleated RBC % (auto) 0.3 %; Platelet Count 246 K/uL (130-400); RDW Coefficient of Variation 16.4 % (11.5-14.5); RDW Standard Deviation 61.8 fL (36.4-46.3); Red Blood Count 3.35 M/uL (4.20-5.40); White Blood Count 5.75 K/ul (4.8-10.8)
[2024-10-23 08:13] LABS: BUN Creatinine Ratio 35.5 (10-20); Calcium 9.4 mg/dl (8.6-10.3); Creatinine Clr Calc Pharmacy 72.4 ml/min; Potassium 3.3 mmol/L (3.5-5.1)
[2024-10-23] MEDS: ACETAMINOPHEN 325 MG TAB PO PRN (09:40)
[2024-10-23] MEDS: POLYETHYLENE (MIRALAX) 17 GM PACK PO PRN (09:40)
[2024-10-23] MEDS: POTASSIUM CHLORIDE CRTAB 20 MEQ TABCR PO STA (09:41)
--- NOTE | 2024-10-23 09:46 | Orthopedic Progress Note ---
Date of Service October 23, 2024 Assessment & Plan (1) Hematoma of right thigh: Plan: IMPRESSION: RLE Hamstring strain with hematoma, pt on Eliquis. PLAN: Conservative treatment. Recommended warm moist compresses. An order was placed for a K-pad with [place] and [employer] mpress machine. Antony bandage lightly applied lower leg elevated with pillows Pain control per primary service PT/OT WBAT, will likely need a walker d/c planning. Continue care per primary service Please recall if any ortho issues Admission and Anticipated Discharge Date Admission Date: October 21, 2024 Subjective Improving, was able to get up and ambulate with walker, although still painful Physical Exam Physical Exam: RLE: Neurovascularly intact. Significant swelling and ecchymosis entire lower leg. Calf and thigh swelling, but soft. Able to preform straight leg raise. Results & Data Vital Signs (Past 12 Hours) Vital Signs Temp Pulse Pulse Resp BP Pulse Ox O2 Del Method 10/23/24 07:30 36.6 C 61 16 120/75 90 Room Air 10/23/24 02:27 36.6 C 60 18 149/81 H 90 Room Air, CPAP 10/22/24 22:44 Room Air, CPAP 10/22/24 22:21 36.7 C 63 18 127/76 91 Room Air 10/22/24 22:15 60 Laboratory Results 10/23/24 10/23/24 10/22/24 Range/Units 08:22 07:15 20:15 WBC 5.75 (4.8-10.8) K/ul RBC 3.35 L (4.20-5.40) M/uL Hgb 11.1 L (12.0-16.0) g/dl Hct 34.2 L (37.0-47.0) % MCV 102.1 H (80.0-100.0) fL MCH 33.1 (25.0-34.0) pg MCHC 32.5 (32.0-36.0) g/dL RDW Std Deviation 61.8 H (36.4-46.3) fL RDW Coeff of Vito 16.4 H (11.5-14.5) % Plt Count 246 (130-400) K/uL MPV 10.4 (9.4-12.4) fL Absolute Nucleated RBC 0.02 (0.00-0.12) K/uL Nucleated RBC % (auto) 0.3 % Sodium 138 (136-145) mmol/L Potassium 3.3 L (3.5-5.1) mmol/L Chloride 102 (98-107) mmol/L Carbon Dioxide 29 (21-32) mmol/L Anion Gap 7 (3-11) BUN 27 H (6-23) mg/dl Creatinine 0.76 (0.6-1.2) mg/dl Est Cr Clr Drug Dosing 72.4 ml/min eGFR 82.17 BUN/Creatinine Ratio 35.5 H (10-20) Glucose 120 H (70-99(Fasting)) mg/dl POC Glucose 119 H 141 H (70-99) mg/dl Calcium 9.4 (8.6-10.3) mg/dl (1) Hematoma of right thigh Encounter type: subsequent encounter Qualified Code(s): S70.11XD - Contusion of right thigh, subsequent encounter
--- NOTE | 2024-10-23 13:35 | Hospitalist Progress Note ---
Date of Service October 23, 2024 Assessment & Plan (1) Hematoma of right thigh: Plan Pt is a 74-year-old female with past medical history significant for type 2 diabetes hyperlipidemia, hypothyroidism, obstructive sleep apnea on CPAP, multiple lung nodules,'s history of nonobstructive CAD, paroxysmal atrial fibrillation, sick sinus syndrome status post pacemaker, hypertension, left bundle branch block, polymyalgia rheumatica, history of microcytic anemia, generalized anxiety disorder, panic disorder, depression presenting after a recent fall and right lower extremity pain and ambulatory dysfunction. Patient fell on October 07 and she was in the ER. Imaging studies were unremarkable at that time. Since going home she is having worsening pain in the right lower extremity. And also some pain in the left lower extremity. She is ambulating with a walker. Painful leg movements. As symptoms are not getting better she came back to the ER. Imaging studies showing right hamstring hematoma. Patient is on Eliquis for A-fib. Hematoma in right proximal hamstrings musculature Measuring 1.5 X3.0X 15.4 cm Painful leg movements Ambulatory dysfunction Will hold Eliquis and aspirin at this time Ortho consulted, appreciate recs -recommending conservative management at this time "-Recommended warm moist compresses. An order was placed for a K-pad with aqua compress machine. Antony bandage lightly applied lower leg elevated with pillows Pain control per primary service PT/OT WBAT, will likely need a walker d/c planning." Pain control prn PT OT- recommending home with home health PT Case later discussed with Dr. Huerta who recommends from an Ortho standpoint Eliquis can be resumed. Eliquis to resume on 10/23/2024. Pt agreeable. History of proximal atrial fibrillation Sick sinus syndrome Status post pacemaker On metoprolol succinate per ortho as above can restart Eliquis.Eliquis to resume on 10/23/2024. Pt agreeable. Also aspirin Anemia of acute blood loss Hemoglobin 11.6 Hemoglobin 13.3 on 10/07/24 Eliquis and aspirin resumed 10/23 Continue to monitor History of nonobstructive CAD On beta-ludy and statin Holding aspirin, aspirin resumed Diabetes Hold home p.o. medication Sliding scale Will monitor Obstructive sleep apnea CPAP nightly Hypothyroidism On Synthyroid Polymyalgia rheumatica On prednisone 8mg q4 week taper by 1 mg Currently on 7 mg dose Follows with Rheumatology Given use of pred with aspirin and Eliquis, started on GI ppi prophylaxis with pantoprazole 40mg daily Generalized disorder Panic disorder Depression On sertraline and Ativan as needed Hypertension On hydrochlorothiazide and metoprolol Monitor Hyperlipidemia On statin Diet: HH DVT prophylaxis: SCDs for now in setting of hematoma Dispo: PT/OT pending Admission and Anticipated Discharge Date Admission Date: October 21, 2024 Subjective patient was seen with her daughter at bedside Notes that at nighttime she has more pain, had an episode of increased pain overnight and got IV Dilaudid Lots of questions for orthopedics. Daughter states that she would like patient to go home and not have to come back like the last time. Would like to talk to ortho Ortho contacted, Dr. Huerta who is agreeable to following up with patient's daughter. Patient with concerns about her Eliquis and when to restart. Per Ortho can restart from their perspective Had not yet been seen by physical therapy. However later contacted by physical therapy and was advised that she can go home Review of Systems Review of Systems: All systems reviewed & are unremarkable except as noted in Subjective Physical Exam Physical Exam: General: Alert, oriented. No acute distress Skin: significant bruising on RLE, tender to palpation, bruising on LLE as well Psych: Appropriate mood and affect HEENT: NC/AT CV: RRR, Resp: Breath sounds clear bilaterally, no increased effort of breathing Abdomen:Soft,tender in LUQ Extremities: significant bruising on RLE, tender to palpation, bruising on LLE as well Results & Data Results & Data Vital Signs (Past 12 Hours) Vital Signs Temp Pulse Pulse Resp BP Pulse Ox O2 Del Method 10/23/24 11:15 36.6 C 59 L 16 119/70 94 Room Air 10/23/24 07:30 60 10/23/24 07:30 36.6 C 61 16 120/75 90 Room Air 10/23/24 02:27 36.6 C 60 18 149/81 H 90 Room Air, CPAP (1) Hematoma of right thigh Encounter type: subsequent encounter Qualified Code(s): S70.11XD - Contusion of right thigh, subsequent encounter
[2024-10-23] MEDS: APIXABAN 5 MG TABLET PO SCH (22:02)
[2024-10-23] MEDS: PANTOprazole 40 MG TAB PO SCH (22:02)
[2024-10-24 07:26] LABS: Hemoglobin 11.1 g/dl (12.0-16.0); Mean Corpuscular Hemoglobin 33.2 pg (25.0-34.0); Mean Corpuscular Hgb Conc 32.6 g/dL (32.0-36.0); Mean Corpuscular Volume 101.8 fL (80.0-100.0); Mean Platelet Volume 10.9 fL (9.4-12.4); Nucleated RBC # (auto) 0.02 K/uL (0.00-0.12); Nucleated RBC % (auto) 0.4 %; Platelet Count 239 K/uL (130-400); RDW Coefficient of Variation 16.1 % (11.5-14.5); RDW Standard Deviation 60.5 fL (36.4-46.3); Red Blood Count 3.34 M/uL (4.20-5.40); White Blood Count 5.04 K/ul (4.8-10.8)
[2024-10-24 07:46] LABS: BUN Creatinine Ratio 40.9 (10-20); Calcium 9.1 mg/dl (8.6-10.3); Creatinine Clr Calc Pharmacy 83.4 ml/min; Magnesium 1.9 mg/dl (1.7-2.4); Phosphorus 2.8 mg/dl (2.5-4.9); Potassium 3.3 mmol/L (3.5-5.1)
[2024-10-24] MEDS: ASPIRIN 81 MG ECTAB PO SCH (08:55)
[2024-10-24] MEDS: POTASSIUM CHLORIDE CRTAB 20 MEQ TABCR PO STA (09:03)
--- NOTE | 2024-10-24 09:13 | Orthopedic Progress Note ---
Date of Service October 24, 2024 Assessment & Plan (1) Hematoma of right thigh: Plan: IMPRESSION: RLE Hamstring strain with hematoma, pt on Eliquis. PLAN: Conservative treatment. Recommended warm moist compresses. An order was placed for a K-pad with [employer] mpress machine. Antony bandage lightly applied lower leg elevated with pillows Pain control per primary service PT/OT WBAT, will likely need a walker d/c planning. Continue care per primary service Please recall if any ortho issues Admission and Anticipated Discharge Date Admission Date: October 21, 2024 Subjective Feeling a bit better. Still has some pain. Physical Exam Physical Exam: RLE: Neurovascularly intact. Significant swelling and ecchymosis entire lower leg. Calf and thigh swelling, but soft. Able to preform straight leg raise. Sitting comfortably in chair with stool to prop up feet. Results & Data Vital Signs (Past 12 Hours) Vital Signs Temp Pulse Pulse Resp BP Pulse Ox O2 Del Method 10/24/24 07:48 36.4 C L 64 16 125/82 92 Room Air 10/24/24 03:28 36.3 C L 60 16 145/87 H 95 Room Air 10/23/24 22:45 36.8 C 59 L 18 126/73 92 Room Air 10/23/24 22:08 61 Laboratory Results 10/24/24 10/24/24 10/23/24 Range/Units 07:42 06:34 20:08 WBC 5.04 (4.8-10.8) K/ul RBC 3.34 L (4.20-5.40) M/uL Hgb 11.1 L (12.0-16.0) g/dl Hct 34.0 L (37.0-47.0) % MCV 101.8 H (80.0-100.0) fL MCH 33.2 (25.0-34.0) pg MCHC 32.6 (32.0-36.0) g/dL RDW Std Deviation 60.5 H (36.4-46.3) fL RDW Coeff of Vito 16.1 H (11.5-14.5) % Plt Count 239 (130-400) K/uL MPV 10.9 (9.4-12.4) fL Absolute Nucleated RBC 0.02 (0.00-0.12) K/uL Nucleated RBC % (auto) 0.4 % Sodium 137 (136-145) mmol/L Potassium 3.3 L (3.5-5.1) mmol/L Chloride 102 (98-107) mmol/L Carbon Dioxide 27 (21-32) mmol/L Anion Gap 8 (3-11) BUN 27 H (6-23) mg/dl Creatinine 0.66 (0.6-1.2) mg/dl Est Cr Clr Drug Dosing 83.4 ml/min eGFR 91.99 BUN/Creatinine Ratio 40.9 H (10-20) Glucose 108 H (70-99(Fasting)) mg/dl POC Glucose 131 H 112 H (70-99) mg/dl Calcium 9.1 (8.6-10.3) mg/dl Phosphorus 2.8 (2.5-4.9) mg/dl Magnesium 1.9 (1.7-2.4) mg/dl 10/23/24 10/23/24 Range/Units 16:52 12:17 WBC (4.8-10.8) K/ul RBC (4.20-5.40) M/uL Hgb (12.0-16.0) g/dl Hct (37.0-47.0) % MCV (80.0-100.0) fL MCH (25.0-34.0) pg MCHC (32.0-36.0) g/dL RDW Std Deviation (36.4-46.3) fL RDW Coeff of Vito (11.5-14.5) % Plt Count (130-400) K/uL MPV (9.4-12.4) fL Absolute Nucleated RBC (0.00-0.12) K/uL Nucleated RBC % (auto) % Sodium (136-145) mmol/L Potassium (3.5-5.1) mmol/L Chloride (98-107) mmol/L Carbon Dioxide (21-32) mmol/L Anion Gap (3-11) BUN (6-23) mg/dl Creatinine (0.6-1.2) mg/dl Est Cr Clr Drug Dosing ml/min eGFR BUN/Creatinine Ratio (10-20) Glucose (70-99(Fasting)) mg/dl POC Glucose 123 H 115 H (70-99) mg/dl Calcium (8.6-10.3) mg/dl Phosphorus (2.5-4.9) mg/dl Magnesium (1.7-2.4) mg/dl (1) Hematoma of right thigh Encounter type: subsequent encounter Qualified Code(s): S70.11XD - Contusion of right thigh, subsequent encounter
[2024-10-24 11:42] VITALS: BP 131/74; PULSE 69; RESP 20; TEMP 97.3; O2SAT 94
--- NOTE | 2024-10-24 14:28 | Discharge Summary ---
Discharge Summary Date of Service October 24, 2024 Principal Dx & Hospital Course #1 = Principal Diagnosis (1) Hematoma of right thigh: (2) Right leg pain: Plan Pt is a 74-year-old female with past medical history significant for type 2 diabetes hyperlipidemia, hypothyroidism, obstructive sleep apnea on CPAP, multiple lung nodules,'s history of nonobstructive CAD, paroxysmal atrial fibrillation, sick sinus syndrome status post pacemaker, hypertension, left bundle branch block, polymyalgia rheumatica, history of microcytic anemia, generalized anxiety disorder, panic disorder, depression presenting after a recent fall with right lower extremity pain and ambulatory dysfunction. Patient fell on October 07 and she was in the ER. Imaging studies were unremarkable at that time. Since going home, she was having worsening pain in the right lower extremity. And also some pain in the left lower extremity. She is ambulating with a walker. Painful leg movements. As symptoms are not getting better she came back to the ER. Imaging studies showing right hamstring hematoma. Patient is on Eliquis for A-fib. Hematoma in right proximal hamstring musculature Acute Blood loss Anemia Measuring 1.5 X 3.0 X 15.4 cm Painful leg movements Ambulatory dysfunction Hgb with noted decrease from 13.3 on Oct 07 to 11.1 on discharge Held Eliquis and aspirin on admission Ortho consulted, recommended/stated the following: -recommended conservative management "-Recommended warm moist compresses. An order was placed for a K-pad with aqua compress machine. Antony bandage lightly applied lower leg elevated with pillows Pain control per primary service PT/OT WBAT, will likely need a walker..." For Discharge orthopedics Dr Huerta recommended the following: "Weightbearing as tolerated, will likely require walker...Warm moist compresses to the leg...ANTONY bandage for light compression...ELEVATE...Pain control per primary service...PT/OT...Continue eliquis...Follow up in our office in 2-3 weeks for outpatient appointment. Out office will contact patient and coordinate" Pt with walker at home PT OT- recommending home with home health PT, set up by case management Patient was discharged with instructions to continue with Tylenol 1000 mg every 8 hours scheduled at baseline to help with pain. She was also prescribed oxycodone 5 mg every 6 hours as needed for severe additional breakthrough pain. Per the PDMP, patient was recently prescribed Lyrica. She states she had side effects from that and will no longer be taking it. Patient advised to discontinue. Also noted that she was also recently prescribed tramadol. States she has a few pills of those left at home. She was instructed not to use tramadol with her oxycodone currently prescribed. She verbalized understanding and agreement. Per orthopedics recommendations, Eliquis resumed on 10/23/2024 Continue to monitor H/H after discharge Close PCP and orthopedic followup after discharge History of proximal atrial fibrillation Sick sinus syndrome Status post pacemaker On metoprolol succinate per ortho as above can restart Eliquis.Eliquis resumed on 10/23/2024. Home aspirin also resumed Acute blood loss anemia Hemoglobin 11.6 on discharge, down from 13.3 on 10/07/24 Eliquis and aspirin resumed 10/23 per ortho recs Continue to monitor H/H after discharge and ensure stability Close PCP followup after discharge History of nonobstructive CAD On beta-ludy and statin Aspirin resumed Diabetes Held home p.o. medications, resume on discharge Sliding scale while hospitalized Obstructive sleep apnea CPAP nightly Hypothyroidism On Synthroid Polymyalgia rheumatica On prednisone 8mg for 4 weeks with q4 week taper by 1 mg Currently on 7 mg dose Follows with Rheumatology Given use of pred with aspirin and Eliquis, started on GI ppi prophylaxis with pantoprazole 40mg daily Close PCP nd Rheumatology followup Generalized disorder Panic disorder Depression On sertraline and Ativan as needed Hypertension On hydrochlorothiazide and metoprolol Monitor Hyperlipidemia On statin Notes For Next Care Provider Please ensure pain control Please ensure follow up with Orthopedics, home PT/OT services Continue to monitor H/H after discharge Medication Changes From Visit oxycodone 5mg q6h prn for 5 days Tylenol 1000mg TID aniket x 5 days GI prophylaxis: pantoprazole 40mg daily while on extended prednisone taper with Eliquis and aspirin Admission HPI Per Admitting Provider 74-year-old female with past medical history significant for type 2 diabetes hyperlipidemia, hypothyroidism, obstructive sleep apnea on CPAP, multiple lung nodules,'s history of nonobstructive CAD, paroxysmal atrial fibrillation, sick sinus syndrome status post pacemaker, hypertension, left bundle branch block, polymyalgia rheumatica, history of microcytic anemia, generalized anxiety disorder, panic disorder, depression comes because of recent fall and right lower extremity pain and ambulatory dysfunction. Patient fell on October 07 and she was in the ER. Imaging studies were okay at that time. She ambulated okay in the ER and was discharged. Since going home she is having worsening pain in the right lower extremity. And also some pain in the left lower extremity. She is ambulating with a walker. Painful leg movements. As symptoms are not getting better she came back to the ER today. Imaging studies showing right hamstring hematoma. Patient is on Eliquis for A-fib. Denies any blood in stool or black stools. No hematuria. No abdominal pain. No chest pain or shortness of breath. No cough. No fevers. No headache. No blurred visions or double vision. No earache no runny nose or sore throat. Appetite is okay. Currently resting comfortably and hemodynamically stable. Past medical history. As mentioned above. Past surgical history. Colonoscopy and EGD. Hemorrhoidectomy. Bronchoscopy. Pacemaker placement. Bilateral cataracts. Total abdominal hysterectomy with removal of tubes. Umbilical hernia repair. Social history. . No smoking. No alcohol use. No drug use. Family history. Father had AR. Mother had stroke. Sister had breast cancer. Sister has hypertension. Daughter has asthma. Admission Exam Per Admitting Provider General- Not in distress Head- atraumatic Eyes- PERRL. ENT- oropharynx clear Neck- supple, no JVD. Lungs- clear to auscultation no wheezing or crackles Heart- regular rhythm; no murmur, no gallop. Abdomen- normal bowel sounds, soft, nontender, no distension Extremities- bruise seen on right leg thigh to ankle. Bruise seen on left leg below knee. Painful right leg movements Neuro- alert, oriented PERRL, no facial palsy; no dysarthria; moves extremities Discharge Exam General: Alert, oriented. No acute distress Skin: significant bruising on RLE, tender to palpation, bruising on LLE as well Psych: Appropriate mood and affect HEENT: NC/AT CV: RRR, Resp: Breath sounds clear bilaterally, no increased effort of breathing Abdomen:Soft,tender in LUQ Extremities: significant bruising on RLE, tender to palpation, bruising on LLE as well Updated Medication List Medication Instructions Recorded Confirmed Type nitroglycerin 0.4 mg sublingual 0.4 mg sublingual Q5M PRN Chest 07/26/19 10/21/24 History tablet Pain psyllium husk 3.4 gram/5.4 gram 1 tbs PO DAILY PRN Constipation 03/10/20 10/21/24 History oral powder (Metamucil) atorvastatin 20 mg tablet 20 mg PO HS 03/19/20 10/21/24 History lorazepam 1 mg tablet 1 mg PO Q8H PRN Anxiety 03/21/20 10/21/24 History hydrochlorothiazide 25 mg tablet 25 mg PO DAILY 06/01/20 10/21/24 History cholecalciferol (vitamin D3) 25 2,000 unit PO QAM 01/04/21 10/21/24 History mcg (1,000 unit) capsule multivitamin 1 tab PO QAM 01/04/21 10/21/24 History blood sugar diagnostic (OneTouch #100 ea 01/08/21 10/21/24 Rx Ultra Blue Test Strip) levothyroxine 50 mcg tablet 50 mcg PO DAILY #30 tabs 04/04/22 10/21/24 Rx apixaban 5 mg tablet (Eliquis) 5 mg PO BID 02/26/24 10/21/24 History metformin 500 mg tablet,extended 500 mg PO QPM 02/26/24 10/21/24 History release 24 hr metoprolol succinate 25 mg 25 mg PO QAM 02/26/24 10/21/24 History tablet,extended release 24 hr trazodone 50 mg tablet 25 mg PO QPM PRN Sleep 02/26/24 10/21/24 History empagliflozin 10 mg tablet 10 mg PO DAILY 06/29/24 10/21/24 History (Jardiance) potassium chloride 20 mEq 20 meq PO BID 06/29/24 10/21/24 History tablet,extended release(part/cryst) aspirin 81 mg tablet,delayed 81 mg PO DAILY 09/24/24 10/21/24 History release metoprolol succinate 50 mg 50 mg PO QPM 09/24/24 10/21/24 History tablet,extended release 24 hr prednisone 1 mg tablet 3 mg PO DAILY 09/24/24 10/21/24 History prednisone 5 mg tablet 5 mg PO DAILY 09/24/24 10/21/24 History sertraline 100 mg tablet 150 mg PO DAILY 09/24/24 10/21/24 History levalbuterol tartrate 45 2 puff inhalation Q4H PRN 09/27/24 10/21/24 Rx mcg/actuation aerosol inhaler shortness of breath or wheezing 10 (Xopenex HFA) days #15 grams acetaminophen 500 mg tablet 1,000 mg (2 x 500 mg) PO TID #30 10/24/24 Rx tabs oxycodone 5 mg tablet 5 mg PO Q6H PRN pain, severe #20 10/24/24 Rx tabs pantoprazole 40 mg tablet,delayed 40 mg PO QAM #30 tabs 10/24/24 Rx release Hospital Stay Data Consultations 10/21/24 20:51 ED Decision to Admit Stat 10/22/24 08:00 Consult Orthopedic Surgery Routine Diagnostic Imagining Performed 10/21/24 19:45 CT abd pelvis IV con only Stat CT femur RT w con Stat Hip/Pelvis X-Ray 10/21/24 18:13 EXAM: Radiographs of the Right Hip 3 Views INDICATION: Posttraumatic pain. TECHNIQUE: Front view pelvis and AP and frog leg lateral views of the right hip. COMPARISON: 10/07/2024 FINDINGS: Limitations: None. Bones/joints: No fracture, erosion or dislocation. Soft tissues: No abnormality noted. No radiopaque foreign body noted. IMPRESSION: No radiographic abnormality of the right hip. ACT 112: Negative or not required by law. Electronically signed by Telma Beltran 10-21-2024 6:45 PM Knee X-Ray 10/21/24 18:14 EXAM: Radiographs of the Right Knee 2 Views INDICATION: Posttraumatic pain. TECHNIQUE: Frontal and lateral views of the right knee. COMPARISON: No relevant prior studies available. FINDINGS: Bones/joints: There is mild patellofemoral spurring. There is smooth appearing depression in the lateral margin of the lateral femoral condyle which may reflect an old osteochondral defect. There is no acute fracture. No loose body or erosion. Soft tissues: No abnormality noted. No radiopaque foreign body noted. IMPRESSION: 1. No acute abnormality. 2. Possible old osteochondral defect lateral femoral condyle. ACT 112: Negative or not required by law. Electronically signed by Telma Beltran 10-21-2024 6:46 PM Abdomen/Pelvis CT 10/21/24 19:45 Exam(s): CT ABDOMEN + PELVIS With Contrast IV Amt: 91ml optiray 320 EXAM: CT Abdomen and Pelvis With Intravenous Contrast CLINICAL HISTORY: Reason for exam: poss retroperitoneal bleed. TECHNIQUE: Axial computed tomography images of the abdomen and pelvis with intravenous contrast. CTDI is 28 mGy and DLP is 2271 mGy-cm. Automated exposure control was utilized for the study. A dose lowering technique was utilized adhering to the principles of ALARA. CONTRAST: Patient received 91ml optiray 320 of IV contrast COMPARISON: 10/07/24 FINDINGS: Lung bases: Unremarkable. Heart: [place] cardiac pacer leads. ABDOMEN: Liver: Small benign hepatic cyst. Gallbladder and bile ducts: Unremarkable. No calcified stones. No ductal dilation. Pancreas: Unremarkable. No mass. No ductal dilation. Spleen: Unremarkable. No splenomegaly. Adrenals: Unremarkable. No mass. Kidneys and ureters: Unremarkable. No solid mass. No hydronephrosis. Stomach and bowel: No bowel obstruction. Diverticulosis. No mucosal thickening. PELVIS: Appendix: Normal appendix. Bladder: Unremarkable. No mass. Reproductive: Hysterectomy. ABDOMEN and PELVIS: Intraperitoneal space: Unremarkable. No free fluid or free air. Retroperitoneal space: Unremarkable. No evidence of intra-abdominal or retroperitoneal hemorrhage. Bones/joints: Degenerative changes in the thoracolumbar spine. No acute fracture. No dislocation. Soft tissues: Unremarkable. Vasculature: Atherosclerosis without aortic aneurysm. Lymph nodes: Unremarkable. No enlarged lymph nodes. IMPRESSION: No evidence of intra-abdominal or retroperitoneal hemorrhage. Electronically signed by: Angelica Johnson M.D. 10/21/24 20:[address] 10/21/24 19:45 Exam(s): CT EXTREMITY RIGHT LOWER With Contrast IV Amt: 91ml optiray 320 EXAM: CT Right Lower Extremity With Intravenous Contrast CLINICAL HISTORY: Reason for exam: poss ongoing bleeding. TECHNIQUE: Axial computed tomography images of the right lower extremity with intravenous contrast. CTDI is 27 mGy and DLP is 970.8 mGy-cm. Automated exposure control was utilized for the study. A dose lowering technique was utilized adhering to the principles of ALARA. CONTRAST: Patient received 91ml optiray 320 of IV contrast COMPARISON: No relevant prior studies available. FINDINGS: Bones/joints: Unremarkable. No acute fracture or dislocation. Soft tissues: Complex intramuscular collection in the proximal right hamstrings musculature (predominantly the biceps femoris and semitendinosus muscles) measuring 1.5 x 3.0 x 15.4 cm (axial 125, coronal 81). This extends from the hamstrings origin distally within the muscle belly. IMPRESSION: Complex intramuscular collection in the proximal right hamstrings musculature (predominantly the biceps femoris and semitendinosus muscles) measuring 1.5 x 3.0 x 15.4 cm (axial 125, coronal 81). This extends from the hamstrings origin distally within the muscle belly. Appearance could represent intramuscular hematoma. Integrity of the underlying tendon is not confirmed. Electronically signed by: Angelica Johnson M.D. 10/21/24 20:41 PM Discharge Instructions Given to Patient (Per Discharging Provider) George Neal were admitted and treated for a hematoma in your right lower extremity. This has caused you significant pain and we treated you with pain medications. You are also seen by the sales and in home delivery specialist who recommended that you can resume your home Eliquis and aspirin. They left additional instructions below for you. For your pain, continue with Tylenol 1000 mg (2 extra strength pills) every 8 hours scheduled regardless if you have pain for the next 5 days. then, if you still have pain, can use the prescribed as needed oxycodone every 6 hours to help with the pain. As discussed, due to the side effects you noted please discontinue the Lyrica/pregabalin that you have at home. Do not take the few remaining tramadol pills you have at home with the oxycodone currently prescribed. Since you are taking prednisone for an extended period of time and you are also on Eliquis and a baby aspirin, we started you on the medication pantoprazole for prophylaxis to prevent a gastrointestinal bleed Please keep close follow up with your primary care provider after discharge. Please do not hesitate to come back to the emergency room if your symptoms worsen or return. It was a pleasure taking care of you while you were here! Orthopedics left the following instructions for you below: Total Time Total Time Spent Total Time Spent (In Minutes): 65
== END 2024-10-24 17:36 | disposition home health service (06) | DRG 605 ==
LOC: ED 18:02 → 2N 21:52 → SUATTDRO 21:52 → 2N 22:48
DX: Z79.82 Long term (current) use of aspirin; Z88.2 Allergy status to sulfonamides; I25.10 Atherosclerotic heart disease of native coronary artery without angina pectoris; F41.1 Generalized anxiety disorder; Z79.01 Long term (current) use of anticoagulants; S76.311A Strain of muscle, fascia and tendon of the posterior muscle group at thigh level, right thigh, initial encounter; D62 Acute posthemorrhagic anemia; Z79.899 Other long term (current) drug therapy; W19.XXXA Unspecified fall, initial encounter; Z79.52 Long term (current) use of systemic steroids; Z88.8 Allergy status to other drugs, medicaments and biological substances; S70.11XA Contusion of right thigh, initial encounter; I10 Essential (primary) hypertension; Z79.890 Hormone replacement therapy; F32.A Depression, unspecified; E78.5 Hyperlipidemia, unspecified; E11.9 Type 2 diabetes mellitus without complications; G47.33 Obstructive sleep apnea (adult) (pediatric); Z95.0 Presence of cardiac pacemaker; M35.3 Polymyalgia rheumatica; Z79.84 Long term (current) use of oral hypoglycemic drugs; I49.5 Sick sinus syndrome; I48.0 Paroxysmal atrial fibrillation; F41.0 Panic disorder [episodic paroxysmal anxiety]; E03.9 Hypothyroidism, unspecified

== ENCOUNTER 2024-10-29 06:56 | Inpatient (IN) ==
[2024-10-29] MEDS: SODIUM CHLORIDE 0.9% 500 ML IV ONE (07:28)
--- NOTE | 2024-10-29 07:29 | Emergency Department Note ---
ED Provider Note History of Present Illness Chief Complaint: Vomiting Stated Complaint: N/V, Afib RVR Time Seen by Provider: 10/29/24 07:11 Source: patient Mode of arrival: EMS Limitations: no limitations This patient is a 74-year-old female who presents to the emergency department via EMS for evaluation of vomiting and atrial fibrillation. Patient reports that she woke up around midnight and felt nauseous and started vomiting. She has been dry heaving and vomiting since then. She does not have diarrhea. She states that her was recently ill with a GI bug (nausea/vomiting). Patient has a history of paroxysmal atrial fibrillation and is on Eliquis. She has a pacemaker. She takes metoprolol twice a day. She states that this morning, she felt herself go into A-fib and when her heart rate went into the 130s to 140s she decided to come in. She denies chest pain, shortness of breath or abdominal pain. She does report that she had COVID slightly over a month ago. She had a recent admission due to a hematoma in her leg which has been resolving. Home Medications Medication Instructions Recorded Confirmed Type nitroglycerin 0.4 mg sublingual 0.4 mg sublingual Q5M PRN Chest 07/26/19 10/29/24 History tablet Pain psyllium husk 3.4 gram/5.4 gram 1 tbs PO DAILY PRN Constipation 03/10/20 10/29/24 History oral powder (Metamucil) atorvastatin 20 mg tablet 20 mg PO HS 03/19/20 10/29/24 History lorazepam 1 mg tablet 1 mg PO Q8H PRN Anxiety 03/21/20 10/29/24 History hydrochlorothiazide 25 mg tablet 25 mg PO DAILY 06/01/20 10/29/24 History cholecalciferol (vitamin D3) 25 2,000 unit PO QAM 01/04/21 10/29/24 History mcg (1,000 unit) capsule multivitamin 1 tab PO QAM 01/04/21 10/29/24 History blood sugar diagnostic (OneTouch #100 ea 01/08/21 10/21/24 Rx Ultra Blue Test Strip) levothyroxine 50 mcg tablet 50 mcg PO DAILY #30 tabs 04/04/22 10/29/24 Rx apixaban 5 mg tablet (Eliquis) 5 mg PO BID 02/26/24 10/29/24 History metformin 500 mg tablet,extended 500 mg PO QPM 02/26/24 10/29/24 History release 24 hr trazodone 50 mg tablet 25 mg PO QPM PRN Sleep 02/26/24 10/29/24 History empagliflozin 10 mg tablet 10 mg PO DAILY 06/29/24 10/29/24 History (Jardiance) potassium chloride 20 mEq 20 meq PO BID 06/29/24 10/29/24 History tablet,extended release(part/cryst) aspirin 81 mg tablet,delayed 81 mg PO DAILY 09/24/24 10/29/24 History release prednisone 1 mg tablet 2 mg PO DAILY 09/24/24 10/29/24 History prednisone 5 mg tablet 5 mg PO DAILY 09/24/24 10/29/24 History sertraline 100 mg tablet 150 mg PO DAILY 09/24/24 10/29/24 History levalbuterol tartrate 45 2 puff inhalation Q4H PRN 09/27/24 10/29/24 Rx mcg/actuation aerosol inhaler shortness of breath or wheezing 10 (Xopenex HFA) days #15 grams acetaminophen 500 mg tablet 1,000 mg (2 x 500 mg) PO TID #30 10/24/24 10/29/24 Rx tabs oxycodone 5 mg tablet 5 mg PO Q6H PRN pain, severe #20 10/24/24 10/29/24 Rx tabs pantoprazole 40 mg tablet,delayed 40 mg PO QAM #30 tabs 10/24/24 10/29/24 Rx release metoprolol succinate 50 mg 50 mg PO BID #60 tabs 10/30/24 Rx tablet,extended release 24 hr Allergies Allergy/AdvReac Type Severity Reaction Status Date / Time citalopram [From Celexa] Allergy Unknown Unknown Verified 06/29/24 14:36 Sulfa (Sulfonamide Allergy Unknown UNKNOWN Verified 06/29/24 14:36 Antibiotics) albuterol AdvReac Intermediate racing Verified 06/29/24 14:36 heart Past Med/Surg History Problem List (Updated 10/30/24 @ 16:37 by Lila Valadez PA-C) Nausea and vomiting (Acute) Atrial fibrillation with rapid ventricular response (Acute) Cardiac pacemaker in situ (Acute) CAD in [place] artery (Acute) Left bundle branch block (Acute) Hypothyroidism (Chronic) Hypertension (Chronic) Hyperlipidemia (Chronic) CAD (coronary artery disease) PMR (polymyalgia rheumatica) Obstructive sleep apnea (adult) (pediatric) Diabetes mellitus Anxiety Insomnia (Acute) Depression with anxiety (Chronic) GERD (gastroesophageal reflux disease) Medical History Anticoagulated Failure of outpatient treatment Hematoma of right thigh Contusion of right leg Fall Right leg pain Hypoxia PAF (paroxysmal atrial fibrillation) Acute hypoxic respiratory failure COVID-19 Atrial flutter with rapid ventricular response Low magnesium level Hypokalemia Atrial fibrillation/flutter Tachy-luis syndrome Depression Hypomagnesemia Bradycardia Encounter for examination following treatment at hospital H/O atrial fibrillation without current medication Abnormal thyroid function test Unsteady gait when walking Poor balance Decreased hearing of both ears Inflamed seborrheic keratosis Skin tag Abnormal skin growth Multiple pulmonary nodules determined by computed tomography of lung External hemorrhoids Iron deficiency anemia Nasal congestion Abnormal CT of the chest Multiple pulmonary nodules Lumbar radicular pain Periumbilic rebound abdominal tenderness Abnormal CT of the chest Neutropenia Thrombocytopenia Elevated liver enzymes Allergic rhinitis Arthritis Encounter for long-term (current) use of medications Osteopenia Nasal vestibulitis GIB (gastrointestinal bleeding) Anaplasmosis Infected lesion in nose Concussion Hemorrhoids History of coronary artery disease Surgical History History of esophagogastroduodenoscopy (EGD) 02/22/21 Dr. Pablo Mckay S/P colonoscopy 02/26/21 Dr. Pablo Mckay History of bilateral oophorectomy History of hernia surgery History of back surgery Hx of hysterectomy H/O cardiac catheterization Family History Father Hypertension Heart disease Mother Stroke Other Breast cancer Myocardial infarction No family history of adverse response to anesthesia No family history of bleeding disorder Denies family history of Ovarian cancer Prostate cancer Colorectal cancer Social History Smoking Status: Never smoker Second Hand Exposure: Yes; Do You Dip or Chew Tobacco: No; Hx Alcohol Use: No Hx Substance Use: No Preferred Language: Polish Communication Ability: Effective Manager Business Operations Required: No Beliefs That Will Affect Care: None marital status: Current Living Situation: Spouse Current Living Situation Comment: Lives in [facility] with current occupational status: retired How many Children do You have: 3 Feels Safe at Home: Yes caffeine: Yes Dental Care, Regularly: Yes Physical Activity Frequency: 1-2 Times per Week Seatbelt Use: always Sunscreen Use: Yes Assistive Devices: CPAP and Walker Physical Exam Vital Signs Vital Signs - 24 hr 10/29/24 07:13 10/29/24 07:20 10/29/24 07:29 Temperature 36.8 C Temperature Source Oral Pulse Rate 158 H 150 H 156 H Pulse Rate [Apical] Pulse Rhythm Regular Irregular Pulse Rhythm [Apical] Pulse Strength Normal Respiratory Rate 19 20 Respiratory Effort / Characteristics Non-Labored Spontaneous Respiratory Depth Normal Respiratory Pattern Regular Blood Pressure 103/71 Blood Pressure [Right Arm] Blood Pressure Mean 81 Blood Pressure Mean [Right Arm] Pulse Oximetry 93 92 Oxygen Delivery Method Room Air Room Air Sepsis Recent Fever Within 48 Hours No Sepsis New/Unexplained Change in Mental Status No Sepsis Action Taken by Nursing No Action Required 10/29/24 07:29 10/29/24 07:39 10/29/24 08:09 Temperature Temperature Source Pulse Rate 150 H 130 H Pulse Rate [Apical] 158 H Pulse Rhythm Pulse Rhythm [Apical] Irregular Pulse Strength Respiratory Rate 20 Respiratory Effort / Characteristics Non-Labored Spontaneous Respiratory Depth Normal Respiratory Pattern Regular Blood Pressure 126/87 109/71 Blood Pressure [Right Arm] 126/87 Blood Pressure Mean Blood Pressure Mean [Right Arm] 100 Pulse Oximetry 92 Oxygen Delivery Method Room Air Sepsis Recent Fever Within 48 Hours Sepsis New/Unexplained Change in Mental Status Sepsis Action Taken by Nursing 10/29/24 08:09 Temperature Temperature Source Pulse Rate 130 H Pulse Rate [Apical] Pulse Rhythm Pulse Rhythm [Apical] Pulse Strength Respiratory Rate Respiratory Effort / Characteristics Respiratory Depth Respiratory Pattern Blood Pressure 109/71 Blood Pressure [Right Arm] Blood Pressure Mean Blood Pressure Mean [Right Arm] Pulse Oximetry Oxygen Delivery Method Sepsis Recent Fever Within 48 Hours Sepsis New/Unexplained Change in Mental Status Sepsis Action Taken by Nursing VITALS: Vitals are noted on the nurse's note and reviewed by myself. GENERAL: This is a 74-year-old female, in no acute distress. SKIN: The skin was without rashes, erythema, edema, or bruising. EARS: External auditory canals clear, tympanic membranes pearly collins without erythema or effusion bilaterally. EYES: Pupils equal round and reactive to light and accommodation. MOUTH: Mucous membranes moist. Tonsils are not enlarged. Pharynx without erythema or exudate. NECK: Supple without nuchal rigidity. No lymphadenopathy. HEART: Tachycardic, irregular. LUNGS: Clear to auscultation bilaterally without wheezes, rales or rhonchi. ABDOMEN: Positive bowel sounds x 4. Soft, not palpation. EXTREMITIES: Antony wrap on the right lower extremity. Ecchymosis to bilateral lower extremities. No pitting edema. NEURO: Patient was alert and oriented to person place and time. Course Administered Medications Discontinued Medications Apixaban (Apixaban 5 Mg Tablet) 5 mg PO BID [facility] Stop: 11/28/24 12:59 Last Admin: 10/31/24 08:16 Dose: 5 mg Documented By: Admin: 10/30/24 21:27 Dose: 5 mg Documented By: Admin: 10/30/24 09:03 Dose: 5 mg Documented By: Admin: 10/29/24 21:05 Dose: 5 mg Documented By: Admin: 10/29/24 14:18 Dose: 5 mg Documented By: SY Aspirin (Aspirin 81 Mg Ectab) 81 mg PO DAILY [facility] Stop: 11/28/24 12:59 Last Admin: 10/31/24 08:16 Dose: 81 mg Documented By: Admin: 10/30/24 09:04 Dose: 81 mg Documented By: Admin: 10/29/24 14:16 Dose: 81 mg Documented By: SY Atorvastatin Calcium (Atorvastatin 20 Mg Tab) 20 mg PO HS [facility] Stop: 11/28/24 20:59 Last Admin: 10/30/24 21:27 Dose: 20 mg Documented By: Admin: 10/29/24 21:05 Dose: 20 mg Documented By: SHAYY Folic Acid (Folic Acid 1 Mg Tab) 1 mg PO QAM [facility] Stop: 11/29/24 08:59 Last Admin: 10/31/24 08:16 Dose: 1 mg Documented By: Admin: 10/30/24 09:04 Dose: 1 mg Documented By: LUCRETIA Sodium Chloride (Nss) 500 mls @ 999 mls/hr IV .Q31M ONE Stop: 10/29/24 07:50 Last Infusion: 10/29/24 08:03 Dose: Infused Documented By: Admin: 10/29/24 07:28 Dose: 999 mls/hr Documented By: SY Diltiazem HCl 125 mg/ Dextrose 125 mls @ 10 mls/hr IV .[id number] [facility]; Protocol Stop: 11/28/24 09:14 Last Titration: 10/29/24 16:13 Dose: Infused Documented By: Co-signed By: PK Titration: 10/29/24 15:04 Dose: 0 mg/hr, 0 mls/hr Documented By: SY Co-signed By: JENNIFERK Titration: 10/29/24 11:55 Dose: 10 mg/hr, 10 mls/hr Documented By: SY Co-signed By: JENNIFERK Admin: 10/29/24 09:23 Dose: 5 mg/hr, 5 mls/hr Documented By: SY Co-signed By: CATRACHO Promethazine HCl (Phenergan) 6.25 mg in 50.25 mls @ 201 mls/hr IV NOW STA Stop: 10/29/24 09:25 Last Infusion: 10/29/24 09:35 Dose: Infused Documented By: Admin: 10/29/24 09:18 Dose: 201 mls/hr Documented By: SY Insulin Aspart (Insulin Aspart Per Unit Charge) 0 units SC ACHS [facility] Stop: 11/28/24 12:59 Last Admin: 10/31/24 12:42 Dose: Not Given Documented By: Admin: 10/31/24 09:24 Dose: 1 units Documented By: SANDIE Co-signed By: Admin: 10/30/24 21:19 Dose: Not Given Documented By: Admin: 10/30/24 17:38 Dose: Not Given Documented By: Admin: 10/30/24 12:34 Dose: Not Given Documented By: Admin: 10/30/24 09:02 Dose: 2 units Documented By: LUCRETIA Co-signed By: JONAH Admin: 10/29/24 21:03 Dose: Not Given Documented By: Admin: 10/29/24 17:30 Dose: Not Given Documented By: Admin: 10/29/24 14:25 Dose: Not Given Documented By: SY Co-signed By: HAN Ioversol (Optiray 320 100ml) 93 ml IV ONCE ONE Stop: 10/30/24 16:56 Last Admin: 10/30/24 16:56 Dose: 93 ml Documented By: TERI Levothyroxine Sodium (Levothyroxine Sodium 50 Mcg Tablet) 50 mcg PO Q2D@0630 [facility] Stop: 11/28/24 12:59 Last Admin: 10/31/24 06:24 Dose: 50 mcg Documented By: Admin: 10/29/24 14:19 Dose: 50 mcg Documented By: SY Levothyroxine Sodium (Levothyroxine Sodium 75 Mcg Tablet) 75 mcg PO Q2D@0630 [facility] Stop: 11/29/24 06:29 Last Admin: 10/30/24 06:11 Dose: 75 mcg Documented By: SHAYY Lorazepam (Lorazepam 1 Mg Tab) 1 mg PO NOW STA Stop: 10/29/24 10:50 Last Admin: 10/29/24 10:53 Dose: 1 mg Documented By: SY Metoprolol Succinate (Metoprolol Succ 25mg Ext Rel Tab) 25 mg PO [facility] Stop: 11/28/24 10:59 Last Admin: 10/29/24 11:55 Dose: 25 mg Documented By: SY Metoprolol Succinate (Metoprolol Succ 50mg Ext Rel Tab) 50 mg PO NOW STA Stop: 10/29/24 14:48 Last Admin: 10/29/24 15:05 Dose: 50 mg Documented By: SY Metoprolol Succinate (Metoprolol Succ 25mg Ext Rel Tab) 25 mg PO [facility] Stop: 11/29/24 08:59 Last Admin: 10/30/24 09:04 Dose: 25 mg Documented By: LUCRETIA Metoprolol Succinate (Metoprolol Succ 50mg Ext Rel Tab) 50 mg PO BID [facility] Stop: 11/29/24 20:59 Last Admin: 10/31/24 08:15 Dose: 50 mg Documented By: Admin: 10/30/24 21:25 Dose: 50 mg Documented By: SHAYY Metoprolol Tartrate (Metoprolol Tartrate 1 Mg/Ml Vial) 5 mg IV NOW STA Stop: 10/29/24 07:25 Last Admin: 10/29/24 07:39 Dose: 5 mg Documented By: SY Metoprolol Tartrate (Metoprolol Tartrate 1 Mg/Ml Vial) 5 mg IV NOW STA Stop: 10/29/24 07:54 Last Admin: 10/29/24 08:09 Dose: 5 mg Documented By: SY Metoprolol Tartrate (Metoprolol Tartrate 1 Mg/Ml Vial) 5 mg IV NOW STA Stop: 10/29/24 08:30 Last Admin: 10/29/24 08:48 Dose: 5 mg Documented By: SY Miscellaneous (Stat Iv Infusion Titration Per Protocol) 1 each N/A NOW STA Stop: 10/29/24 09:04 Last Admin: 10/29/24 09:27 Dose: Not Given Documented By: SY Ondansetron HCl (Ondansetron Inj 2 Mg/Ml 2 Ml Vial) 4 mg IV Q6H PRN PRN Reason: Nausea Stop: 11/28/24 12:30 Last Admin: 10/30/24 21:33 Dose: 4 mg Documented By: SHAYY Pantoprazole Sodium (Pantoprazole 40 Mg Tab) [facility] Stop: 11/28/24 12:59 Last Admin: 10/31/24 08:16 Dose: 40 mg Documented By: Admin: 10/30/24 09:04 Dose: 40 mg Documented By: Admin: 10/29/24 14:19 Dose: 40 mg Documented By: SY Potassium Chloride (Potassium Chloride Crtab 20 Meq Tabcr) 40 meq PO NOW STA Stop: 10/29/24 10:33 Last Admin: 10/29/24 10:42 Dose: 40 meq Documented By: SY Prednisone (Prednisone 5 Mg Tab) 5 mg PO DAILY [facility] Stop: 11/28/24 12:59 Last Admin: 10/29/24 16:13 Dose: Not Given Documented By: Prednisone (Prednisone 2.5 Mg Tab) 5 mg PO DAILY [facility] Stop: 11/28/24 15:14 Last Admin: 10/31/24 08:15 Dose: 5 mg Documented By: Admin: 10/30/24 09:05 Dose: 5 mg Documented By: Admin: 10/29/24 15:58 Dose: 5 mg Documented By: Sertraline HCl (Sertraline Hcl 50 Mg Tablet) 150 mg PO DAILY [facility] Stop: 11/28/24 12:59 Last Admin: 10/31/24 08:15 Dose: 150 mg Documented By: Admin: 10/30/24 09:03 Dose: 150 mg Documented By: Admin: 10/29/24 14:18 Dose: 150 mg Documented By: SY Vitamin B Complex (Vitamin B Complex Tab) 1 tab PO QAM [facility] Stop: 11/29/24 08:59 Last Admin: 10/31/24 08:15 Dose: 1 tab Documented By: Admin: 10/30/24 09:04 Dose: 1 tab Documented By: LUCRETIA Vitamin D (Cholecalciferol 25 Mcg (1000 Units) Tab) 50 mcg PO QAM [facility] Stop: 11/28/24 12:59 Last Admin: 10/31/24 08:15 Dose: 50 mcg Documented By: Admin: 10/30/24 09:03 Dose: 50 mcg Documented By: Admin: 10/29/24 14:17 Dose: 50 mcg Documented By: SY Medical Decision Making Differential Diagnosis Differential diagnosis includes dehydration, electrolyte abnormality, cardiac dysrhythmia, thyroid dysfunction, pulmonary embolism, infection, gastrointestinal, as well as other pathologies. Laboratory Data Attestation: I reviewed the patient's lab results. 10/29/24 07:30 10/30/24 06:48 Lab Results 10/29/24 Range/Units 07:30 WBC 7.74 (4.8-10.8) K/ul RBC 3.80 L (4.20-5.40) M/uL Hgb 13.0 (12.0-16.0) g/dl Hct 38.4 (37.0-47.0) % MCV 101.1 H (80.0-100.0) fL MCH 34.2 H (25.0-34.0) pg MCHC 33.9 (32.0-36.0) g/dL RDW Std Deviation 60.0 H (36.4-46.3) fL RDW Coeff of Vito 16.0 H (11.5-14.5) % Plt Count 225 (130-400) K/uL MPV 10.8 (9.4-12.4) fL Immature Gran % (Auto) 0.3 % Neut % (Auto) 92.6 % Lymph % (Auto) 2.3 % [place] % (Auto) 4.4 % Eos % (Auto) 0.3 % Baso % (Auto) 0.1 % Neut # (Auto) 7.17 H (1.40-6.50) K/uL Lymph # (Auto) 0.18 L (1.20-3.40) K/uL [place] # (Auto) 0.34 (0.11-0.59) K/uL Eos # (Auto) 0.02 (0.00-0.50) K/uL Baso # (Auto) 0.01 (0.00-0.20) K/uL Immature Gran # (Auto) 0.02 (0.01-0.20) K/uL Absolute Nucleated RBC 0.02 (0.00-0.12) K/uL Nucleated RBC % (auto) 0.3 % Polychromasia 1+ Tear Drop Cells 1+ Sodium 141 (136-145) mmol/L Potassium 3.4 L (3.5-5.1) mmol/L Chloride 106 (98-107) mmol/L Carbon Dioxide 26 (21-32) mmol/L Anion Gap 9 (3-11) BUN 24 H (6-23) mg/dl Creatinine 0.59 L (0.6-1.2) mg/dl Est Cr Clr Drug Dosing 95.1 ml/min eGFR 94.51 BUN/Creatinine Ratio 40.7 H (10-20) Glucose 160 H (70-99(Fasting)) mg/dl Calcium 8.6 (8.6-10.3) mg/dl Magnesium 1.9 (1.7-2.4) mg/dl Total Bilirubin 1.0 (0.2-1.0) mg/dl AST 25 (13-39) U/L ALT 27 (7-52) U/L Alkaline Phosphatase 61 (34-104) U/L Troponin I High Sens 12.0 (0-14) pg/ml Total Protein 6.8 (6.0-8.3) gm/dl Albumin 4.1 (3.4-5.0) gm/dl Globulin 2.7 (2.5-4.0) gm/dl Albumin/Globulin Ratio 1.5 (0.9-2) Lipase 16 (11-82) U/L Imaging Data Attestation: I personally reviewed and interpreted this imaging study as follows: Radiologist's Impression: Chest X-Ray 10/29/24 07:21 EXAM: XR chest 1V portable CLINICAL HISTORY: AFIB, VOMITING MCS TECHNIQUE: An X-ray image of the chest is obtained in AP projection. COMPARISON: Prior study dated 10/07/2024 FINDINGS: Pulmonary Parenchyma: Prominent broncho vascular markings, and hilar vessels with cephalization seen, suggesting pulmonary congestion. Bilateral lower lung zones linear atelectatic bands. No evidence of consolidation, collapse, or focal opacities. No pulmonary nodules are identified. No evidence of pleural effusion or pleural thickening. Heart and Mediastinum: ICD device seen No mediastinal widening or masses. No hilar or mediastinal lymphadenopathy. Bony Thorax: Bony thorax appears intact without fractures or deformities. Soft Tissues: Soft tissues overlying the chest wall are unremarkable. IMPRESSION: 1. Prominent broncho vascular markings, hilar vessels with cephalization seen, suggesting pulmonary congestion. 2. Bilateral lower lung zones linear atelectatic bands. 3. No acute cardiopulmonary abnormalities are identified. 4. ICD device seen. 5. No interval changes. 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 Patient was placed on the school bus monitor. Patient was noted to be in A-fib with RVR at an initial rate of 140 bpm. This patient is a 74-year-old female who presents to the emergency department for evaluation of atrial fibrillation in the setting of nausea and vomiting. Patient developed an abrupt onset of nausea and vomiting overnight. was recently sick with similar symptoms, suspect she has a viral gastroenteritis, likely norovirus as this is circulating in the community. Patient developed symptoms of A-fib and arrived to the ED due to this. On arrival, patient noted to be in atrial fibrillation with rapid ventricular response in the 140s to 150s. A 500 mL bolus was given to treat suspected dehydration. Patient received Zofran prior to my arrival. She was treated with multiple doses of IV Lopressor with minimal change in heart rate. She was then placed on a diltiazem drip and consultation was placed with the hospitalist service. Of note, shortly after this patient did convert to sinus rhythm at a rate in the 60s. Attending Attestation: I Shen Duran MD I have reviewed the advanced practitioner's documentation and agree with the plan of care. I accept the responsibility for the associated risk of managing the patient. I performed a substantive portion of the visit including involvement in all aspects of medical decision making. Impression Atrial fibrillation with rapid ventricular response, Nausea and vomiting Critical Care Time Critical Care Time: Yes Total Critical Care Time: 35 I have personally spent greater than 35 minutes of critical care time in the direct management of this patient. This includes bedside care, interpretation of diagnostic studies, and testing, discussion with consultants, patient, and family members, and other required patient management activities. This 35 minutes is in excess of all separately billable procedures. Discharge Plan Visit Data Chief Complaint: Vomiting Stated Complaint: N/V, Afib RVR ED Provider: Shen Duran ED Midlevel Provider: Lila Valadez Discharge Problem: Atrial fibrillation with rapid ventricular response, Nausea and vomiting Patient Disposition: Admitted As Inpatient Discharge Instructions Interventions: ED Discharge Assessment Last Done: 10/29/24 12:31
[2024-10-29] MEDS: METOPROLOL TARTRATE 1 MG/ML VIAL IV STA ×3 (07:39→08:48)
--- OUTSIDE RECORDS SUMMARY | 2024-10-29 08:01 | External Medical Summary | Summary of Care ---
Author Name Unknown Organization [facility] Address [address] [place] [address] Phone [phone] Care Team Providers Care Switch House Operator Name Role Phone Dylan Barros MD Primary Care Provider [phone]- [phone] Reason for Visit * Reason Onset Date Comments Hospital Follow-Up 10/25/2024 [facility] ([facility]) Encounter Details Date Type Department Care Team (Late st Contact Info) Description 10/25/2024 Telephone [facility] [address] [place] [address] Addie Magdaleno, LOAN Hospital Follow-Up (DEVONTE ([facility])) Allergies Active Allergy Reactions Criticality Noted Date Comments Albuterol High 04/04/2022 Other reaction(s): racing heart Citalopram 04/04/2022 Other reaction(s): Unknown Sulfa Antibiotics Hives Medium 07/07/2000 documented as of this encounter (statuses as of 10/25/2024) Medications MULTIVITAMINS PO TABS 1 tablet daily [...] before bedtime. 180 Tablet 3 4 Active IntervalZero w/Device Kit Use up to 4 times [...] hemoglobin A1c goal of less than 7.0% ([facility]) Take 1 Tablet by mouth daily. 90 Tablet 3 4 Active [employer] Ultra Test In Vitro Strip (Glucose Blood)Indication s:Type 2 diabetes mellitus with hemoglobin A1c goal of less than 7.0% ([facility]) Use to check blood sugars once per day Dx E11.9 100 Strip 5 4 Active hydroCHLOROthiaz giuliano 25 MG Oral Tablet (Hydrodiuril)Ind ications:Chronic coronary artery disease,HTN, goal below 130/80 TAKE 1 TABLET BY MOUTH EVERY MORNING 90 Tablet 4 Active predniSONE 5 MG Oral Tablet (Deltasone)Indic ations:PMR (polymyalgia rheumatica) ([facility]) Take 1 Tablet by [...] as of this encounter (statuses as of 10/25/2024) Active Problems Problem Noted Date Diagnosed Date [...] AHI was 17.1 DME: [facility], [place] Titration study 04/27/12 set pressure of 8 cm HTN, goal below 130/80 01/09/2011 Chronic coronary artery disease 09/15/2010 Overview (09/15/2010): Cath 2006 - % mid LAD stenosis Dyslipidemia, goal LDL below 70 09/15/2010 documented as of this encounter (statuses as of 10/25/2024) Resolved Problems Problem Noted Date Diagnosed Date Resolved Date Obstructive sleep apnea 11/28/201101/26 Overview (11/28/2011): AHI 8..2 in April 2008 documented as of this encounter (statuses as of 10/25/2024) Immunizations Name Administration Dates Next Due COVID-19 mRNA, LNP-s, No Pre serve, 2-Dose Series (Moderna) 12/24/2020,11/19/2020 COVID-19, mRNA, LNP-s, PF, B ooster, 100mcg/0.5mg (Moderna) 08/18/2021 Covid-19, Mrna, Lnp-s, Pf, B ivalent, 30 Mcg, IM, 12 yrs and above ([employer]) 08/01/2022 DT - Diptheria/Tetanus (PEDS) 06/06/2005 Pneumococcal Conjugate Vacc, 13 Valent (Prevnar) 12/13/2015 Pneumococcal Conjugate Vacci ne, 20-valent ([id number]) 09/21/2024 Pneumococcal Polysaccharide PPV23 (Pneumovax) 08/22/2014 Seasonal [...] encounter Miscellaneous Notes * Telephone Encounter - Addie Magdaleno RN - 10/25/2024 3:11 PM EST Transitions of Care Note Reason for Referral:Recent Admission Phone visit for follow up: DEVONTE #1 Admitted to: [facility], Date: 10/21/2024 Discharged to: Home with Home Services, Date: 10/24/2024 Diagnosis driving hospitalization: Hematoma, Rt leg, Rt hamstring Strain New medications: Acetaminophen, Oxycodone, Pantoprazole Attempted Phone Call First Attempt Call Outcome Left Voicemail/Message Addie Magdaleno RN documented in this encounter Plan of Treatment Upcoming Encounters Date Type Department Care Team (Late st Contact Info) Description 12/14/2024 9:30 AM EST Office Visit Cardiology, [facility] [address] [place] [address] Nicole Severino PA-C [address] [place] [address] 01/20/2025 10:40 AM EDT Telemedicine Rheumatology, [place] [address] [place] [facility] [place] [address] Tessa Duque, DO [address] [facility] [place] [address] 03/24/2025 9:40 AM EDT Office Visit Family Practice, [facility] [address] [address] Dylan Barros MD [address] [place] [address] 04/01/2025 11:20 AM EDT Office Visit Sleep Disorders Ctr [facility] [address] [place] [phone] Riddhi Cook DO [address] [place] [address] Scheduled Procedures Name Priority Associated Diagnoses Date/Ti me COLONOSCOPY FLEXIBLE PROXIMA L DIAGNOSTIC Recall History of colonic polyps Health Maintenance Due Date Last Done Comments Cologuard 1995 Sigmoidoscopy 1995 Fecal Occult Blood Test 07/07/2001 07/07/2000 Adult Wellness Visit 2016 COVID-19 Vaccine ( season) 2024 08/01/2022, 08/18/2021, 12/24/2020, Additional history exists Albumin/Creatinine Ratio 07/08/2024 07/08/2023, 06/2022 Mammogram 01/19/2025 01/20/2024, 12/26, 07/15/2001 HbA1c [...] 07/04/2023, 06/28/2022, Additional history exists Pneumococcal Vaccine: 50+ Years Completed 09/21/2024, 12/13/2015, 08/22/2014 HPV (Gardasil) [...] this encounter Medical Devices Implanted Type Area Periodicals Library Assistant Device Identifier Shelf Expiration Date Model / Serial / Lot Lead Pace Selectsecure [id number] - [id number] Implanted:Qty: 1 on 11/18/2022 by Nora Antonio DO at OR [facility] Lead Left: Heart [employer] : CAR 10/18/2024 [id number] / / Description:RV LBBB Lead Novus Bipolar 52cm - [id number] - [id number] Implanted:Qty: 1 on 11/18/2022 by Nora Antonio DO at OR [facility] Lead Left: Heart [employer] : CAR 09/23/2024 5076-52 / [id number] / Description:RA Pacemaker Daan Xt Dr Banks Wrls - [id number] - [id number] Implanted:Qty: 1 on 11/18/2022 by Nora Antonio DO at OR [facility] Pacemaker Left: Chest [employer] 04/09/2024 [id number] / [id number] / Lens Intraoc 26.5 - [id number] - [id number] Implanted:Qty: 1 on 02/23/2019 by Jonas Valentino MD at OR [facility] Right: Eye [employer]USCH & LOMB 05/26/2023 [id number] / [id number] / [id number] Lens Intraoc 24.5 - [id number] - [id number] Implanted:Qty: 1 on 03/02/2019 by Jonas Valentino MD at OR [facility] Left: Eye BAUSCH & LOMB 08/26/2023 [id number] / [id number] / [id number] Envelope Antibacterial Tyrx - [id number] Implanted:Qty: 1 on 11/18/2022 by Nora Antonio DO at OR [facility] [employer] : CRM [id number] 08/09/2023 CMR [id number] / / [id number] documented as of this encounter Advance Directives * Full Code (Latest Code Status on File) Date Activated Date Inactivated Comments 04/05/2021 7:37 AM 04/05/2021 4:11 PM This order r eflects the patients wishes and were consensually agreed upon. Question Answer Comments Discussion of Advance Directives occurred with: Not Discussed Care Teams Switch House Operator Relationship Specialty Start Date End Date Dylan Barros MD PCP - General Family Medicine 11/07/23 documented as of this encounter
--- OUTSIDE RECORDS SUMMARY | 2024-10-29 08:01 | External Medical Summary | Summary of Care ---
Author Name Unknown Organization [facility] Address [address] [place] [address] Phone [phone] Care Team Providers Care Plant Wrapper Name Role Phone Dylan Barros MD Primary Care Provider +1- [phone] Reason for Visit * Reason Onset Date Comments Hospital Follow-Up 10/25/2024 [facility] ([facility]) Encounter Details Date Type Department Care Team (Late st Contact Info) Description 10/25/2024 Telephone [facility] [address] [place] [address] Angie Magdaleno, LOAN Hospital Follow-Up (DEVONTE ([facility])) Allergies Active Allergy Reactions Criticality Noted Date [...] before bedtime. 180 Tablet 3 4 Active [employer] w/Device Kit Use up to 4 times [...] goal of less than 7.0% ([facility]) Take 1 Tablet by mouth daily. 90 Tablet 3 4 Active [employer] Ultra Test In Vitro Strip (Glucose Blood)Indication s:Type 2 diabetes mellitus with hemoglobin A1c goal of less than 7.0% ([facility]) Use to check blood sugars once per day Dx E11.9 100 Strip 5 4 Active hydroCHLOROthiaz giuliano 25 MG Oral Tablet (Hydrodiuril)Ind ications:Chronic coronary artery disease,HTN, goal below 130/80 TAKE 1 TABLET BY MOUTH EVERY MORNING 90 Tablet 4 Active predniSONE 5 MG Oral Tablet (Deltasone)Indic ations:PMR (polymyalgia rheumatica) ([facility]) Take 1 Tablet by mouth in the [...] 1 Capsule before bedtime. 60 Capsule 2 Active Additional Information Patient not taking.Reported on 10/25/2024 Acetaminophen 500 MG Oral Tablet (Tylenol) Take 2 Tablets by mouth in the morning and 2 Tablets at noon and 2 Tablets before bedtime. Active oxyCODONE HCl 5 MG Oral Tablet (Oxy IR) Take 1 Tablet by mouth every 6 hours as needed. Active Pantoprazole Sodium 40 MG Oral Tablet Delayed Release (Protonix) Take 1 Tablet by mouth in the morning. Active documented as of this encounter (statuses [...] AHI was 17.1 DME: [facility] [place] Titration study 04/27/12 set pressure of 8 cm HTN, goal below 130/80 01/09/2011 Chronic coronary artery disease 09/15/2010 Overview (09/15/2010): Cath 2006 - 30% mid LAD stenosis Dyslipidemia, goal LDL below 70 09/15/2010 documented as of this encounter (statuses as of 10/25/2024) Resolved Problems Problem Noted Date Diagnosed Date Resolved Date Obstructive sleep apnea 11/28/2011 04/ Overview (11/28/2011): AHI 8..2 in April 2008 documented as of this encounter (statuses as of 10/25/2024) Immunizations Name Administration Dates Next Due COVID-19 mRNA, LNP-s, No Pre serve, 2-Dose Series (Moderna) 12/24/2020,11/19/2020 COVID-19, mRNA, LNP-s, PF, B ooster, 100mcg/0.5mg (Moderna) 08/18/2021 Covid-19, Mrna, Lnp-s, Pf, B ivalent, 30 Mcg, IM, 12 yrs and above ([employer]) 08/01/2022 DT - Diptheria/Tetanus (PEDS) 06/06/2005 Pneumococcal Conjugate Vacc, 13 Valent (Prevnar) 12/13/2015 Pneumococcal Conjugate Vacci ne, 20-valent ([id number]) 09/21/2024 Pneumococcal Polysaccharide PPV23 (Pneumovax) 08/22/2014 Seasonal [...] No 01/06/2024 Does the household have a [facility] source of income? (Household - for [...] encounter Miscellaneous Notes * Addendum Note - Angie Magdaleno RN - 10/25/2024 4:49 PM ESTAddended by: ANGIE MAGDALENO on: 10/25/2024 04:49 PM Modules accepted: Orders * Telephone Encounter - Angie Magdaleno RN - 10/25/2024 3:11 PM EST Transitions of Care Note Reason for Referral:Recent Admission Phone visit for follow up: DEVONTE #1 Admitted to: [facility], Date: 10/21/2024 Discharged to: Home with Home Services, Date: 10/24/2024 Diagnosis driving hospitalization: Hematoma, Rt leg, Rt hamstring Strain Attempted Phone Call First Attempt Call Outcome Left Voicemail/Message Angie Magdaleno RN Transitions of Care Note Reason for Referral:Recent Admission Phone visit for follow up: DEVONTE #2 Admitted to: [facility], Date: 10/21/2024 Discharged to: Home with Home Services, Date: 10/24/2024 Diagnosis driving hospitalization: Hematoma, Rt leg, Rt hamstring Strain Source/Contact: Patient SUBJECTIVE Consent: Verbal consent for review of hospital discharge: Yes REVIEW OF SYSTEMS Patient/Other Reports: Current patient/caregiver problems or concerns: Doing well at home, no concerns CV: Denies problems Pulmonary: Denies problems Chills/Sweats/Fever:Denies chills/sweats Denies fever Appetite:Denies problems such as nausea, vomiting, burning, decreased appetite Current diet: As previous Bowel: denies problems Bladder: denies problems Wound (If applicable): Rt LE hematoma Pain:Location- Rt LE Intensity- 3 (Scale 0-10) Sleep:Denies problems FUNCTIONAL STATUS: ADL'S: Needs Assistance With:N/A as pt is independent, using walker IADL'S: Needs Assistance With:Grocery Shopping, Cooking food, and Routine Housework Cognitive and Mental Health: denies problems, alert and oriented x 3, and able to communicate, understand instructions, process information. MEDICATION RECONCILIATION Medications: Discharge med list reviewed with patient or caregiver New medications: Acetaminophen, Oxycodone, Pantoprazole ASSESSMENT Medication Risk Assessment: No risks identified Patient aware not to take Tramadol with Oxycodone. States she disposed of Tramadol Did patient fail outpatient treatment? No Discharge instructions available for review? Yes PLAN Symptom Monitoring Interventions:Member/caregiver education - signs and symptoms to contact PrimaryCare (DO NOT DELETE-Three armstrong symptoms patient is to report to PCP) 1. Chest Pain/SOB 2. Fever/chills 3. Worsening pain Restaurant SupervisorSenior Water/Wastewater Engineer of Care interventions/Action Plan: 5 - 7 day follow-up with PCP in place - Date: PCP appointment scheduled 11/03/2024 per pt request, 1st available with PCP Educated on role of DEVONTE completed with patient/caregiver. Educated patient/caregiver on patient right to have input on DEVONTE plan of care. Verification of Home Health/DME if indicated: YES [facility] Home Health, PT/OT, Nursing Identified Care Gaps: Yes Care Gaps closed this call: Appointment made or confirmed and Transition of Care follow-up communication Re-evaluation of Plan of Care and progress towards goals achievement: Patient education this visit: Verbal, Scheduled PCP appointment 11/03/2024, addressed reasons to call sooner is needed Plan to instructed to call Primary Care Provider with change in symptoms or as needed before next follow-up, discharge needs met, verbalizes understanding and agrees with plan. Angie Magdaleno, RN documented in this encounter Plan of Treatment Upcoming Encounters Date Type Department Care Team (Late st Contact Info) Description 11/03/2024 11:20 AM EST Office Visit [facility] [address] [place] [address] Dylan Barros MD [address] [facility] [place] [address] 12/14/2024 9:30 AM EST Office Visit Cardiology, [facility] [address] [place] [address] Nicole Severino PA-C [address] [place] [address] 01/20/2025 10:40 AM EDT Telemedicine Rheumatology, [place] [address] [place] [address] Tessa Duque DO [address] [place] [address] 03/24/2025 9:40 AM EDT Office Visit [facility] [address] [place] [address] Dylan Barros MD [address] [place] [address] 04/01/2025 11:20 AM EDT Office Visit Sleep Disorders Ctr [facility] [address] [place] [address] Riddhi Cook, [address] [place] [address] Scheduled Procedures Name Priority Associated Diagnoses Date/Ti [...] this encounter Medical Devices Implanted Type Area Mutton Puncher Device Identifier Shelf Expiration Date Model / Serial / Lot Lead Pace Selectsecure [id number] - [id number] Implanted:Qty: 1 on 11/18/2022 by Nora Antonio DO at OR [facility] Lead Left: Heart [employer] : CAR 10/18/2024 [id number] / / Description:RV LBBB Lead Novus Bipolar 52cm - [id number] - [id number] Implanted:Qty: 1 on 11/18/2022 by Nora Antonio DO at OR [facility] Lead Left: Heart [employer] : CAR 09/23/2024 5076-52 / [id number] / Description:RA Pacemaker Floral Xt Dr Banks Wrls - [id number] - [id number] Implanted:Qty: 1 on 11/18/2022 by Nora Antonio DO at OR [facility] Pacemaker Left: Chest [employer] 04/09/2024 [id number] / [id number] / Lens Intraoc 26.5 - [id number] - [id number] Implanted:Qty: 1 on 02/23/2019 by Jonas Valentino MD at OR [facility] Right: Eye BAUSCH [employer] LOMB 05/26/2023 [id number] / [id number] / [id number] Lens Intraoc 24.5 - [id number] - [id number] Implanted:Qty: 1 on 03/02/2019 by Jonas Valentino MD at OR [facility] Left: Eye BAUSCH & LOMB 08/26/2023 [id number] / [id number] / [id number] Envelope Antibacterial Tyrx - [id number] Implanted:Qty: 1 on 11/18/2022 by Nora Antonio DO at OR [facility] [employer] : [id number] 08/09/2023 CMR M6122 / / [id number] documented as of this encounter Advance Directives * Full Code (Latest Code Status on File) Date Activated Date Inactivated Comments 04/05/2021 7:37 AM 04/05/2021 4:11 PM This order r eflects the patients wishes and were consensually agreed upon. Question Answer Comments Discussion of Advance Directives occurred with: Not Discussed Care Teams Plant Wrapper Relationship Specialty Start Date End Date Dylan Barros MD PCP - General Family Medicine 11/07/23 documented as of this encounter
--- OUTSIDE RECORDS SUMMARY | 2024-10-29 08:01 | External Medical Summary | Summary of Care ---
Author Name Unknown Organization [facility] Address [address] [place] [address] Phone [phone] Care Team Providers Care Mixer Whipped Topping Name Role Phone Dylan Barros MD Primary Care Provider +1- [phone] Reason for Visit * Reason Onset Date Comments Home Health 10/26/2024 Encounter Details Date Type Department Care Team (Late st Contact Info) Description 10/26/2024 Telephone [facility] [address] [place] [address] Dylan Barros MD [address] [place], [place] [id number] Home Health Allergies Active Allergy Reactions Criticality Noted Date Comments Albuterol High 04/04/2022 Other reaction(s): racing heart Citalopram 04/04/2022 Other reaction(s): Unknown Sulfa Antibiotics Hives Medium 07/07/2000 documented as of this encounter (statuses as of 10/26/2024) Medications MULTIVITAMINS PO TABS 1 tablet daily [...] before bedtime. 180 Tablet 3 4 Active Grupo PhoenixTouch Verio w/Device Kit Use up to 4 times a day E11.9 1 Kit 4 Active predniSONE 10 MG Oral Tablet (Deltasone)Indic ations:PMR (polymyalgia rheumatica) ([facility]) Take 1 Tablet by mouth in the morning. 90 Tablet 4 Active Additional Information Patient not taking.Reported on 10/04/2024 predniSONE 2.5 MG Oral Tablet (Deltasone)Indic ations:PMR (polymyalgia rheumatica) ([facility]) Take 1 Tablet by mouth in the [...] hemoglobin A1c goal of less than 7.0% ([facility]) Take 1 Tablet by mouth daily. 90 Tablet 3 4 Active Grupo PhoenixTouch Ultra Test In Vitro Strip (Glucose Blood)Indication s:Type 2 diabetes mellitus with hemoglobin A1c goal of less than 7.0% ([facility]) Use to check blood sugars once per day Dx E11.9 100 Strip 5 4 Active hydroCHLOROthiaz giuliano 25 MG Oral Tablet (Hydrodiuril)Ind ications:Chronic coronary artery disease,HTN, goal below 130/80 TAKE 1 TABLET BY MOUTH EVERY MORNING 90 Tablet 4 Active predniSONE 5 MG Oral Tablet (Deltasone)Indic ations:PMR (polymyalgia rheumatica) ([facility]) Take 1 Tablet by mouth in the morning. 90 Tablet 4 Active Additional Information Patient not taking.Reported on 10/04/2024 Metoprolol Succinate ER 25 MG Oral Tablet Extended Release 24 Hour (toPROL XL)Indications:P aroxysmal atrial fibrillation ([facility]) Take 1 Tablet by mouth in the [...] as of this encounter (statuses as of 10/26/2024) Active Problems Problem Noted Date Diagnosed Date [...] AHI was 17.1 DME: [facility], [place] Titration study 04/27/12 set pressure of 8 cm HTN, goal below 130/80 01/09/2011 Chronic coronary artery disease 09/15/2010 Overview (09/15/2010): Cath 2006 - 30% mid LAD stenosis Dyslipidemia, goal LDL below 70 09/15/2010 documented as of this encounter (statuses as of 10/26/2024) Resolved Problems Problem Noted Date Diagnosed Date Resolved Date Obstructive sleep apnea 11/28/201101/26 Overview (11/28/2011): AHI 8..2 in April 2008 documented as of this encounter (statuses as of 10/26/2024) Immunizations Name Administration Dates Next Due COVID-19 mRNA, LNP-s, No Pre serve, 2-Dose Series (Moderna) 12/24/2020,11/19/2020 COVID-19, mRNA, LNP-s, PF, B ooster, 100mcg/0.5mg (Moderna) 08/18/2021 Covid-19, Mrna, Lnp-s, Pf, B ivalent, 30 Mcg, IM, 12 yrs and above ([place]) 08/01/2022 DT - Diptheria/Tetanus (PEDS) 06/06/2005 Pneumococcal Conjugate Vacc, 13 Valent (Prevnar) 12/13/2015 Pneumococcal Conjugate Vacci ne, 20-valent ([id number]) 09/21/2024 Pneumococcal Polysaccharide PPV23 (Pneumovax) 08/22/2014 Seasonal [...] encounter Miscellaneous Notes * Telephone Encounter - Telma Coe LPN - 10/26/2024 1:33 PM EST HH Admission/Start of Care Admission/Start of Care: LOAN Martinez, Calling from: [facility] Patient was Admitted to: [facility] , for: Right leg hematoma s/p fall from 10/21/24 to 10/24/24 Referral ordered by: Dr. Cooper Referral received for: Longterm, PT, and OT Planned start of care date:Yes, Date 10/26/24 Start of care completed on: 10/26/24 Report/Concerns of:None Symptoms: none Vitals: T 97.6 P 64 RR 16 BP 120/78 SP O2 98% RA Lung sounds clear. Weight 216 lbs. Blood sugar 132- is running a little higher than normal. Narrative: Saw pt today for a start of care. Reports that the pt is doing well. Is very independenteven with medications. OT will be seeing pt next week. Next Nursing visit will occur next week. They will call with any updates or additional concerns from the upcoming HH visit. Last Office Visit: 10/04/2024 Has patient been scheduled or seen in the office for a follow up visit: Yes- on11/03/23 Advised that orders will be signed by Dylan Barros MD and to fax to the office for signature. Call back [facility] with advice or orders at [phone] Please fax orders to [facility] Home Health [phone]. documented in this encounter Plan of Treatment Upcoming Encounters Date Type Department Care Team (Late st Contact Info) Description 11/03/2024 11:20 AM EST Office Visit [facility] [address] [phone] Dylan Barros MD [address] [facility] [place] [address] 12/14/2024 9:30 AM EST Office Visit Cardiology, [facility] [address] [address] Nicole Severino PA-C [address] [address] 01/20/2025 10:40 AM EDT Telemedicine Rheumatology, [place] [address], [place] [id number] Tessa Duque DO [address] [place] [facility] [place] [address] 03/24/2025 9:40 AM EDT Office Visit [facility] [place] [address] [place] [address] Dylan Barros MD [address] [place] [address] 04/01/2025 11:20 AM EDT Office Visit [facility] Disorders Ctr [facility] [address] [place] [address] Riddhi Cook DO [address] [place] [address] Scheduled Procedures Name Priority Associated Diagnoses Date/Ti [...] Exam Discontinued 06/28/2022 Zoster Vaccines Completed 07/16/2023, 03/12/2022, 06/14/2015 Influenza Vaccine (FLU shot) Completed 09/21/2024, [...] this encounter Medical Devices Implanted Type Area Program Development Specialist Device Identifier Shelf Expiration Date Model / Serial / Lot Lead Pace Selectsecure 3830-69 - [id number] Implanted:Qty: 1 on 11/18/2022 by Nora Antonio DO at OR [facility] Lead Left: Heart [employer] : CRM 10/18/2024 [id number] / / Description:RV LBBB Lead Novus Bipolar 52cm - [id number] - [id number] Implanted:Qty: 1 on 11/18/2022 by Nora Antonio DO at OR [facility] Lead Left: Heart [employer] : CRM 09/23/2024 5076-52 / [id number] / Description:RA Pacemaker [place] Xt Dr Banks [facility] - [id number] - [id number] Implanted:Qty: 1 on 11/18/2022 by Nora Antonio DO at OR [facility] Pacemaker Left: Chest [employer] 04/09/2024 [id number] / [id number] / Lens Intraoc 26.5 - [id number] - [id number] Implanted:Qty: 1 on 02/23/2019 by Jonas Valentino MD at OR [facility] Right: Eye BAUSCH & LOMB 05/26/2023 [id number] / [id number] / [id number] Lens Intraoc 24.5 - [id number] - [id number] Implanted:Qty: 1 on 03/02/2019 by Jonas Valentino MD at OR [facility] Left: Eye BAUSCH & LOMB 08/26/2023 [id number] / [id number] / [id number] Envelope Antibacterial Tyrx - [id number] Implanted:Qty: 1 on 11/18/2022 by Nora Antonio DO at OR [facility] [employer] : CRM [id number] 08/09/2023 [facility] [id number] / / [id number] documented as of this encounter Advance Directives * Full Code (Latest Code Status on File) Date Activated Date Inactivated Comments 04/05/2021 7:37 AM 04/05/2021 4:11 PM This order r eflects the patients wishes and were consensually agreed upon. Question Answer Comments Discussion of Advance Directives occurred with: Not Discussed Care Teams Mixer Whipped Topping Relationship Specialty Start Date End Date Dylan Barros MD PCP - General Family Medicine 11/07/23 documented as of this encounter
--- OUTSIDE RECORDS SUMMARY | 2024-10-29 08:02 | External Medical Summary | Summary of Care ---
Author Name Unknown Organization [facility] Address [address] [place] [address] Phone [phone] Care Team Providers Care Gauge And Weigh Machine Operator Name Role Phone Dylan Barros MD Primary Care Provider +1- [phone] Reason for Visit * Reason Onset Date Comments Hospital Follow-Up Hospital foll ow up; 09/24-09/29 covid. Today is last day of quarantine. Pt reports feeling extremely tired and no energy. Hospital Follow-Up 10/25/2024 Encounter Details Date Type Department Care Team (Late st Contact Info) Description 10/04/2024 9:40 AM EST Office Visit [facility] [address] [address] Dylan Barros MD [address] [address] COVID-19 virus infection*; Hospital discharge follow-up Allergies Active Allergy Reactions Criticality Noted Date [...] hemoglobin A1c goal of less than 7.0% ([facility]) Take 1 Tablet by mouth daily. 90 Tablet 3 4 Active [email or web address] Ultra Test In Vitro Strip (Glucose Blood)Indication s:Type 2 diabetes mellitus with hemoglobin A1c goal of less than 7.0% ([facility]) Use to check blood sugars once per day Dx E11.9 100 Strip 5 4 Active hydroCHLOROthiaz giuliano 25 MG Oral Tablet (Hydrodiuril)Ind ications:Chronic coronary artery disease,HTN, goal below 130/80 TAKE 1 TABLET BY MOUTH EVERY MORNING 90 Tablet 4 Active predniSONE 5 MG Oral Tablet (Deltasone)Indic ations:PMR (polymyalgia rheumatica) ([facility]) Take 1 Tablet by mouth [...] needed for Anxiety. 30 Tablet 4 Active documented as of this [...] AHI was 17.1 DME: [facility] [place] Titration study 04/27/12 set pressure of 8 [...] (Prevnar) 12/13/2015 Pneumococcal Conjugate Vacci ne, 20-valent (Rafgofu21) 09/21/2024 Pneumococcal Polysaccharide PPV23 (Pneumovax) 08/22/2014 Seasonal [...] No 01/06/2024 Does the household have a [facility] source of income? (Household - [...] Sign Reading Time Taken Comments Blood Pressure 133/90 10/04/2024 9:35 AM EST Pulse 92 10/04/2024 9:35 AM EST Temperature 36 C (96.8 F) 10/04/2024 9:35 AM EST Respiratory Rate 16 10/04/2024 9:35 AM EST Oxygen Saturation 98% 10/04/2024 9:35 AM EST Inhaled Oxygen Concentration - - Weight 98 kg (216 lb) 10/04/2024 9:35 AM EST Height 160 cm (5' 3") 10/04/2024 9:35 AM EST Body Mass Index 38.26 10/04/2024 9:35 AM EST documented in this encounter Progress Notes * Dlyan Barros MD - 10/25/2024 10:44 AM EST Subjective: Ángel Kim is a 74 year old female here today for Chief Complaint Patient presents with Hospital Follow-Up Hospital follow up; 09/24-09/29 covid. Today is last day of quarantine. Pt reports feeling extremelytired and no energy. Hospital Follow-Up Pt presents for hospital follow up. Please see d/c summary for full details. Admitted to [facility] 09/24/24 - 09/29/24 for COVID pneumonia. She is feeling better than admission but still with significant fatigue. Eating and drinking ok. No fevers or resp distress. Has completed treatments. Past Medical History: Diagnosis Date Anxiety Arthritis [...] DIAGNOSTIC performed by Denita Davila MDat ENDOSCOPY [facility] EGD, FLEXIBLE, DIAGNOSTIC 09/04/2015 gastritis/inpt [facility] HEMORRHOIDECTOMY, INTERNAL, 2 + COLUMNS N/A 05/31/2021 HEMORRHOIDECTOMY EXTERNAL AND INTERNAL COMPLEX performed by Jaky Sanches MD at OR [facility] INFORMATION 03/22/2021 Bronchoscopy. INSERT/REPLACE PACEMAKER,ATRIAL/VENTRICULAR Left 11/18/2022 NEW DDD PACEMAKER IMPLANT performed by Nora Antonio DO at OR [facility] OTHER 1994 lumbar discectomy REMOVE CATARACT, INSERT LENS PROSTH Right 02/23/2019 right EXTRACAPSULAR CATARACT REMOVAL WITH INTRAOCULAR LENS performed by Jonas Valentino MD at [facility] REMOVE CATARACT, INSERT LENS PROSTH Left 03/02/2019 left EXTRACAPSULAR CATARACT REMOVAL WITH INTRAOCULAR LENS performed by Jonas Valentino MD at OR [facility] TOTAL ABD HYSTERECTOMY W/WO REMOVAL OF [...] 1000 UNITS PO TABS 2 TABLETS DAILY CPAP every night at bedtime. Docusate Sodium [...] 1 Tablet before bedtime. 180 Tablet 3 MXP4ToSecurens Verio w/Device Kit Use up to 4 [...] by mouth at bedtime. 90 Tablet 1 Levothyroxine Sodium 50 MCG Oral Tablet (Levoxyl) TAKE 1&1/2 TABLETS BY MOUTH DAILY ALTERNATINGWITH 1 TABLET DAILY (at least 30 min prior to breakfast or other meds) 135 Tablet 3 metFORMIN HCl ER 500 MG Oral Tablet Extended Release 24 Hour (Glucophage XR) Take 1 Tablet by mouthdaily. 90 Tablet 3 MXP4ToSecurens Ultra Test In Vitro Strip (Glucose Blood) Use to check blood sugars once per day Dx E11.9 100 Strip 5 hydroCHLOROthiazide 25 MG Oral Tablet (Hydrodiuril) TAKE 1 TABLET BY MOUTH EVERY MORNING 90 Tablet 0 Metoprolol Succinate ER 25 MG Oral Tablet Extended Release 24 Hour (toPROL XL) Take 1 Tablet by mouth in the morning. This is in addition to the 50 mg tablet daily. 90 Tablet 3 guaiFENesin ER 600 MG Oral Tablet Extended Release 12 Hour (Humibid LA) Take 1 Tablet by mouth in the morning and 1 Tablet before bedtime. Levalbuterol Tartrate 45 MCG/ACT Inhalation Aerosol (Xopenex HFA) Inhale 2 Puffs by mouth every 4 hours as needed for Wheezing or Shortness of Breath. LORazepam 0.5 MG Oral Tablet (Ativan) Take 1 Tablet by mouth 3 times a day as needed for Anxiety. 30 Tablet 0 LORazepam (ATIVAN) 1 MG Tablet One tablet every 8 hours as needed (Patient not taking: No sig reported) predniSONE 10 MG Oral Tablet (Deltasone) Take 1 Tablet by mouth in the morning. (Patient not taking: Reported on 10/04/2024) 90 Tablet 0 predniSONE 2.5 MG Oral Tablet (Deltasone) Take 1 Tablet by mouth in the morning. (Patient not taking: Reported on 10/04/2024) 90 Tablet 0 predniSONE 5 MG Oral Tablet (Deltasone) Take 1 Tablet by mouth in the morning. (Patient not taking:Reported on 10/04/2024) 90 Tablet 0 Pregabalin 75 MG Oral Capsule (Lyrica) Take 1 Capsule by mouth in the morning and 1 Capsule before bedtime. 60 Capsule 2 No current facility-administered medications for this visit. Objective: BP 133/90 | Pulse 92 | Temp 96.8 F (36 C) (Tympanic) | Resp 16 | Ht 5' 3" (1.6 m) | Wt 216 lb (98 kg) | LMP 08/19/2000 | SpO2 98% | BMI 38.26 kg/m | BSA 2.09 m GEN: NAD HEENT: Benign NECK: Supple with no LAD, TM, JVD CHEST: CTA B CV: RRR ABD: Soft, NT/ND, No HSM, NABS EXT: No c,c,e Assessment and Plan: COVID-19 virus infection (Primary) -reviewed importance of rest, hydration, nutrition. Anticipate gradual improvement. Call for new orworsening symptoms Hospital discharge follow-up - DISCH MED RECON CUR MED LIS Other orders - LORazepam 0.5 MG Oral Tablet (Ativan); Take 1 Tablet by mouth 3 times a day as needed for Anxiety. Follow Up: Return if symptoms worsen or fail to improve. Dylan Barros MD documented in this encounter Nursing Notes * Cecilia Hawk, MED ASSIST - 10/04/2024 9:49 AM EST The patient has been properly identified by confirmation of name and date of . Chief Complaint Patient presents with Hospital Follow-Up Hospital follow up; 09/24-09/29 covid. Today is last day of quarantine. Pt reports feeling extremelytired and no energy. documented in this encounter Plan of Treatment Upcoming Encounters Date Type Department Care Team (Late st Contact Info) Description 12/14/2024 9:30 AM EST Office Visit Cardiology, [facility] [address] [place] [address] Nicole Severino PA-C [address] [place] [address] 01/20/2025 10:40 AM EDT Telemedicine Rheumatology, [place] [address] [place] [address] Tessa Duque [address], [place] [phone] 03/24/2025 9:40 AM EDT Office Visit Family [facility] [address] [place] [phone] Dylan Barros MD [address] [place] [address] 04/01/2025 11:20 AM EDT Office Visit [facility] Disorders Ctr [facility] [address] [place] [phone] Riddhi Cook, [address] [place] [address] Scheduled Procedures Name Priority Associated Diagnoses Date/Ti [...] this encounter Medical Devices Implanted Type Area Box Press Operator Device Identifier Shelf Expiration Date Model / Serial / Lot Lead Pace [facility] 3830-69 - [id number] Implanted:Qty: 1 on 11/18/2022 by Nora Antonio DO at OR [facility] Lead Left: Heart [employer] : [facility] 10/18/2024 [id number] / / Description:RV LBBB Lead Novus Bipolar 52cm - [id number] - [id number] Implanted:Qty: 1 on 11/18/2022 by Nora Antonio DO at OR [facility] Lead Left: Heart [employer] : CAR 09/23/2024 5076-52 / [id number] / Description:RA Pacemaker Dana Xt Dr Jocelyn ls - [id number] - [id number] Implanted:Qty: 1 on 11/18/2022 by Nora Antonio DO at OR [facility] Pacemaker Left: Chest [employer] 04/09/2024 [id number] / [id number] / Lens Intraoc 26.5 - [id number] - [id number] Implanted:Qty: 1 on 02/23/2019 by Jonas Valentino MD at OR [facility] Right: Eye BAUSCH & LOMB 05/26/2023 [id number] / [id number] / [id number] Lens Intraoc 24.5 - [id number] - [id number] Implanted:Qty: 1 on 03/02/2019 by Jonas Valentino MD at OR [facility] Left: Eye BAUSCH & LOMB 08/26/2023 [id number] / [id number] / [id number] Envelope Antibacterial Tyrx - [id number] Implanted:Qty: 1 on 11/18/2022 by Nora Antonio DO at OR [facility] [employer] : [facility] [id number] 08/09/2023 [facility] M6122 / / [id number] documented as of this encounter Visit Diagnoses Diagnosis COVID-19 virus infection- Primary Hospital discharge follow-up Other follow-up examination Fall, subsequent encounter- Primary Hip pain, right [...] Directives occurred with: Not Discussed Care Teams Gauge And Weigh Machine Operator Relationship Specialty Start Date End Date Dylan Barros MD PCP - General Family Medicine 11/07/23 documented as of this encounter
--- OUTSIDE RECORDS SUMMARY | 2024-10-29 08:02 | External Medical Summary | Summary of Care ---
Author Name Unknown Organization [facility] Address [address] [place] [address] Phone [phone] Care Team Providers Care Tub Tender Name Role Phone Dylan Barros MD Primary Care Provider +1- [phone] Encounter Details Date Type Department Care Team (Late st Contact Info) Description 10/25/2024 Orders Only Outcomes Research Department [address], [place] [phone] Christy Mata CHRA [employer] Other*[id number] Allergies Active Allergy Reactions Criticality Noted Date [...] MG Oral Tablet (Deltasone)Indic ations:PMR (polymyalgia rheumatica) ([facility]) Take 1 Tablet by mouth [...] hemoglobin A1c goal of less than 7.0% ([facility]) Take 1 Tablet by mouth daily. 90 Tablet 3 4 Active OneTouch Ultra Test In Vitro Strip (Glucose Blood)Indication s:Type 2 diabetes mellitus with hemoglobin A1c goal of less than 7.0% ([facility]) Use to check blood sugars once per day Dx E11.9 100 Strip 5 4 Active hydroCHLOROthiaz giuliano 25 MG Oral Tablet (Hydrodiuril)Ind ications:Chronic coronary artery disease,HTN, goal below 130/80 TAKE 1 TABLET BY MOUTH EVERY MORNING 90 Tablet 4 Active predniSONE 5 MG Oral Tablet (Deltasone)Indic ations:PMR (polymyalgia rheumatica) ([facility]) Take 1 Tablet by mouth in the morning. 90 Tablet 4 Active Additional Information Patient not taking.Reported on 10/04/2024 Metoprolol Succinate ER 25 MG Oral Tablet Extended Release 24 Hour (toPROL XL)Indications:P aroxysmal atrial fibrillation ([facility]) Take 1 Tablet by mouth [...] AHI was 17.1 DME: [facility], [place] Titration study 04/27/12 set pressure of 8 [...] (Prevnar) 12/13/2015 Pneumococcal Conjugate Vacci ne, 20-valent (Rhmyklt57) 09/21/2024 Pneumococcal Polysaccharide PPV23 (Pneumovax) 08/22/2014 Seasonal [...] 18 years and over) Not on file 03/12/202 4 Are you (or your family) paradise eless [...] 12/14/2024 9:30 AM EST Office Visit Cardiology, [facility] [address] [address] Nicole Severino PA-C [address] [place] [address] 01/20/2025 10:40 AM EDT Telemedicine Rheumatology, [place] [address] [place] [address] Tessa Duque DO [address] [place] [address] 03/24/2025 9:40 AM EDT [facility] [address] [phone] Dylan Barros MD [address] [address] 04/01/2025 11:20 AM EDT Office Visit [facility] [address] [place] [phone] Riddhi Cook DO [address] [place] [address] Scheduled Orders Name Type Priority Associated Diagnoses Orde r Schedule MYCODE SUBSEQUENT ADULT Lab Routine [employer] Other*[id number] Every 6 Months for 2 Occurrences starting 10/25/2024 until 11/14/2025 Scheduled Procedures Name Priority Associated Diagnoses Date/Ti me COLONOSCOPY FLEXIBLE PROXIMA L DIAGNOSTIC Recall History of colonic polyps Health Maintenance Due Date Last Done Comments Cologuard 1995 Sigmoidoscopy 1995 Fecal Occult Blood Test 07/07/2001 07/07/2000 Adult Wellness Visit 2016 COVID-19 Vaccine ( season) 2024 08/01/2022, 08/18/2021, 12/24/2020, Additional history exists Albumin/Creatinine Ratio 07/08/2024 07/08/2023, 08/0 06/2022 Mammogram 01/19/2025 01/20/2024, 12/26, 07/15/2001 HbA1c [...] Exam Discontinued 06/28/2022 Zoster Vaccines Completed 07/16/2023, 12/2022, 06/14/2015 Influenza Vaccine (FLU shot) Completed [...] this encounter Medical Devices Implanted Type Area Wool Hat Sanding Machine Operator Device Identifier Shelf Expiration Date Model / Serial / Lot Lead Pace Selectsecure 3830-69 - [id number] Implanted:Qty: 1 on 11/18/2022 by Nora Antonio DO at OR [facility] Lead Left: Heart [employer] : CRM 10/18/2024 [id number] / / Description:RV LBBB Lead Novus Bipolar 52cm - [id number] - [id number] Implanted:Qty: 1 on 11/18/2022 by Nora Antonio DO at OR [facility] Lead Left: Heart [employer] : CRM 09/23/2024 5076-52 / [id number] / Description:RA Pacemaker Dana Xt Dr Banks ls - [id number] - [id number] Implanted:Qty: 1 on 11/18/2022 by Nora Antonio DO at OR [facility] Pacemaker Left: Chest [employer] 04/09/2024 [id number] / [id number] / Lens Intraoc 26.5 - [id number] - [id number] Implanted:Qty: 1 on 02/23/2019 by Jonas Valentino MD at OR [facility] Right: Eye BAUSCH & LOMB 05/26/2023 [id number] Lens Intraoc 24.5 - [id number] - [id number] Implanted:Qty: 1 on 03/02/2019 by Joans Valentino MD at OR [facility] Left: Eye BAUSCH & LOMB 08/26/2023 [id number] / [id number] / [id number] Envelope Antibacterial Tyrx - [id number] Implanted:Qty: 1 on 11/18/2022 by Nora Antonio DO at OR [facility] [employer] : CRM [id number] 08/09/2023 [facility] M6122 / / [id number] documented as of this encounter Visit Diagnoses Diagnosis Fall, subsequent encounter- Primary Hip pain, right Pain in joint, pelvic region and thigh Acute pain of left knee Acute left ankle pain [employer] Other*[id number] documented in this encounter Advance Directives * Full Code (Latest Code Status on File) Date Activated Date Inactivated Comments 04/05/2021 7:37 AM 04/05/2021 4:11 PM This order r eflects the patients wishes and were consensually agreed upon. Question Answer Comments Discussion of Advance Directives occurred with: Not Discussed Care Teams Tub Tender Relationship Specialty Start Date End Date Dylan Barros MD PCP - General Family Medicine 11/07/23 documented as of this encounter
[2024-10-29 08:04] LABS: Albumin Globulin Ratio 1.5 (0.9-2); Albumin Level 4.1 gm/dl (3.4-5.0); BUN Creatinine Ratio 40.7 (10-20); Calcium 8.6 mg/dl (8.6-10.3); Creatinine Clr Calc Pharmacy 95.1 ml/min; Globulin 2.7 gm/dl (2.5-4.0); Hematocrit (blood only) 38.4 % (37.0-47.0); Magnesium 1.9 mg/dl (1.7-2.4); Mean Corpuscular Hemoglobin 34.2 pg (25.0-34.0); Mean Corpuscular Hgb Conc 33.9 g/dL (32.0-36.0); Mean Corpuscular Volume 101.1 fL (80.0-100.0); Mean Platelet Volume 10.8 fL (9.4-12.4); Nucleated RBC # (auto) 0.02 K/uL (0.00-0.12); Nucleated RBC % (auto) 0.3 %; Platelet Count 225 K/uL (130-400); Potassium 3.4 mmol/L (3.5-5.1); Total Protein 6.8 gm/dl (6.0-8.3); White Blood Count 7.74 K/ul (4.8-10.8)
--- NOTE | 2024-10-29 08:04 | XRay Report ---
EXAM: XR chest 1V portable CLINICAL HISTORY: AFIB, VOMITING MCS TECHNIQUE: An X-ray image of the chest is obtained in AP projection. COMPARISON: Prior study dated 10/07/2024 FINDINGS: Pulmonary Parenchyma: Prominent broncho vascular markings, and hilar vessels with cephalization seen, suggesting pulmonary congestion. Bilateral lower lung zones linear atelectatic bands. No evidence of consolidation, collapse, or focal opacities. No pulmonary nodules are identified. No evidence of pleural effusion or pleural thickening. Heart and Mediastinum: ICD device seen No mediastinal widening or masses. No hilar or mediastinal lymphadenopathy. Bony Thorax: Bony thorax appears intact without fractures or deformities. Soft Tissues: Soft tissues overlying the chest wall are unremarkable. IMPRESSION: 1. Prominent broncho vascular markings, hilar vessels with cephalization seen, suggesting pulmonary congestion. 2. Bilateral lower lung zones linear atelectatic bands. 3. No acute cardiopulmonary abnormalities are identified. 4. ICD device seen. 5. No interval changes. Electronically signed by Gail Brito 10-29-2024 08:04 AM
[2024-10-29 08:36] LABS: Basophils # (auto) 0.01 K/uL (0.00-0.20); Basophils % (auto) 0.1 %; Eosinophils # (auto) 0.02 K/uL (0.00-0.50); Eosinophils % (auto) 0.3 %; Immature Granulocytes # (auto) 0.02 K/uL (0.01-0.20); Immature Granulocytes % (auto) 0.3 %; Lymphocytes # (auto) 0.18 K/uL (1.20-3.40); Lymphocytes % (auto) 2.3 %; Monocytes # (auto) 0.34 K/uL (0.11-0.59); Monocytes % (auto) 4.4 %; Neutrophils # (auto) 7.17 K/uL (1.40-6.50); Neutrophils % (auto) 92.6 %; Polychromasia 1+; Tear Drop Cells 1+
[2024-10-29 08:37] LABS: Influenza A virus by PCR Negative (Neg); Influenza B virus by PCR Negative (Neg); RSV by PCR Negative (Neg); SARS CoV2 RNA(COVID-19) Ceph POSITIVE (Negative)
[2024-10-29] MEDS: PROMETHAZINE 6.25 MG/50.25 ML BAG IV STA (09:18)
[2024-10-29] MEDS: dilTIAZem HCL 125 MG in DEXTROSE 5% 100 ML IV SCH (09:23)
[2024-10-29] MEDS: STAT IV Infusion **Titration per Protocol STA (09:27)
[2024-10-29 10:38] LABS: Appearance Urine Clear (Clear); Bacteria Urine Automated None Seen (None Seen); Bilirubin Urine Negative (Negative); Blood Urine Trace (Negative); Cast Urine Automated 0-2 /lpf (0-2); Color Urine Yellow; Epithelial Cell Urine Auto 0-2 /hpf (0-2); Glucose Urine UA 3+ (Negative); Ketones Urine Negative (Negative); Leukocyte Esterase Urine Negative (Negative); Nitrite Urine Negative (Negative); Protein Urine Negative (Negative); Specific Gravity Urine 1.035 (1.000-1.030); Urobilinogen Urine Negative (Negative); WBC Urine Automated 0-5 /hpf (0-5)
[2024-10-29] MEDS: POTASSIUM CHLORIDE CRTAB 20 MEQ TABCR PO STA (10:42)
--- NOTE | 2024-10-29 10:49 | History & Physical Report ---
Date of Service October 29, 2024 Assessment & Plan (1) Atrial fibrillation with rapid ventricular response: Plan: -has prior hx of afib with RVR refractory to PO, follows with [facility] cardiology, last visit 04/2024 -on eliquis outpatient, has had hx of GI bleed in past but restarted -EKG shows afib with possible abberancy, refractory to PO and IV metoprolol in ED -hemodynamically stable, cap refill intact and no elevated JVP -hx of COVID in september, trace pulmonary edema noted on chest xray Plan: -start metoprolol 25mg q6hrs scheduled, hold long acting home dose -continue eliquis -cardiology consult, appreciate recs -echo ordered -continue dilt drip, goal HR less than 110 -check troponin, BNP, TSH for risk strat -K>4, Mg>2 (2) Cardiac pacemaker in situ: Plan: -s/p dual lead pacemaker Oct 2022 Plan: -pacemaker interrogation ordered (3) CAD (coronary artery disease): Plan: -continue statin (4) Hyperlipidemia: Plan: -continue statin (5) Hypertension: Plan: -hold thiazide in setting of severe RVR (6) Hypothyroidism: Plan: -on levothyroxine at home, continue home dose Plan: -check TSH (7) Left bundle branch block: Plan: -see above, appreciate cardiology recs (8) GERD (gastroesophageal reflux disease): Plan: -continue protonix (9) Depression with anxiety: Plan: -continue home (10) CAD in [place] artery: Plan: -continue statin (11) Insomnia: Plan: -continue home trazadone (12) Anxiety: Plan: -continue sertraile (13) Diabetes mellitus: Plan: -on metformin at home -ACHS checks with novolog correction as needed (14) Obstructive sleep apnea (adult) (pediatric): Plan: -CPAP ordered, on at home (15) PMR (polymyalgia rheumatica): Plan: -continue home prednisone (16) Hypokalemia: Plan: -K 3.4 Plan: -replenishment ordered Plan Feeding/fluids: diabetic diet Analgesia: tylenol Sedation: none, home ativan prn Thromboprophylaxis: on eliquis Head up position: 30 degrees Ulcer prophylaxis: home protonix Glycemic control: ordered Spontaneous breathing trial: n/a Bowel care: miralax Indwelling catheter removal: n/a Deescalation of antibiotics: not needed Admission and Anticipated Discharge Date Anticipated date of discharge: 10/31/24 History of Present Illness Chief Complaint: nausea/vomiting Primary Care Provider: Dylan Barros MD 74-year-old female with past medical history of left bundle branch block, diabetes type 2, hyperlipidemia, hypothyroidism, polymyalgia rheumatica, HFpEF, sick sinus syndrome, CAD, A-fib with pacemaker who presents for nausea and vomiting. She also noted that she had a fast heart rate. When she was at home she felt very sick to her stomach and also noted a little bit of a tightness in her chest and then noticed that her heart was racing. This has happened before normally she takes a metoprolol tablet from her home medications and it goes away. This time it did not. Had COVID 1 month ago. Denies tobacco use alcohol use or other drug use. Has been taking all medications as prescribed. Has chronic lower extremity pain. Denies headache shortness of breath swelling in the legs. Allergies Allergy/AdvReac Type Severity Reaction Status Date / Time citalopram [From Celexa] Allergy Unknown Unknown Verified 06/29/24 14:36 Sulfa (Sulfonamide Allergy Unknown UNKNOWN Verified 06/29/24 14:36 Antibiotics) albuterol AdvReac Intermediate racing Verified 06/29/24 14:36 heart Home Medications Medication Instructions Recorded Confirmed Type nitroglycerin 0.4 mg sublingual 0.4 mg sublingual Q5M PRN Chest 07/26/19 10/29/24 History tablet Pain psyllium husk 3.4 gram/5.4 gram 1 tbs PO DAILY PRN Constipation 03/10/20 10/29/24 History oral powder (Metamucil) atorvastatin 20 mg tablet 20 mg PO HS 03/19/20 10/29/24 History lorazepam 1 mg tablet 1 mg PO Q8H PRN Anxiety 03/21/20 10/29/24 History hydrochlorothiazide 25 mg tablet 25 mg PO DAILY 06/01/20 10/29/24 History cholecalciferol (vitamin D3) 25 2,000 unit PO QAM 01/04/21 10/29/24 History mcg (1,000 unit) capsule multivitamin 1 tab PO QAM 01/04/21 10/29/24 History blood sugar diagnostic (OneTouch #100 ea 01/08/21 10/21/24 Rx Ultra Blue Test Strip) levothyroxine 50 mcg tablet 50 mcg PO DAILY #30 tabs 04/04/22 10/29/24 Rx apixaban 5 mg tablet (Eliquis) 5 mg PO BID 02/26/24 10/29/24 History metformin 500 mg tablet,extended 500 mg PO QPM 02/26/24 10/29/24 History release 24 hr metoprolol succinate 25 mg 25 mg PO QAM 02/26/24 10/29/24 History tablet,extended release 24 hr trazodone 50 mg tablet 25 mg PO QPM PRN Sleep 02/26/24 10/29/24 History empagliflozin 10 mg tablet 10 mg PO DAILY 06/29/24 10/29/24 History (Jardiance) potassium chloride 20 mEq 20 meq PO BID 06/29/24 10/29/24 History tablet,extended release(part/cryst) aspirin 81 mg tablet,delayed 81 mg PO DAILY 09/24/24 10/29/24 History release metoprolol succinate 50 mg 50 mg PO QPM 09/24/24 10/29/24 History tablet,extended release 24 hr prednisone 1 mg tablet 2 mg PO DAILY 09/24/24 10/29/24 History prednisone 5 mg tablet 5 mg PO DAILY 09/24/24 10/29/24 History sertraline 100 mg tablet 150 mg PO DAILY 09/24/24 10/29/24 History levalbuterol tartrate 45 2 puff inhalation Q4H PRN 09/27/24 10/29/24 Rx mcg/actuation aerosol inhaler shortness of breath or wheezing 10 (Xopenex HFA) days #15 grams acetaminophen 500 mg tablet 1,000 mg (2 x 500 mg) PO TID #30 10/24/24 10/29/24 Rx tabs oxycodone 5 mg tablet 5 mg PO Q6H PRN pain, severe #20 10/24/24 10/29/24 Rx tabs pantoprazole 40 mg tablet,delayed 40 mg PO QAM #30 tabs 10/24/24 10/29/24 Rx release Past Med/Surg History Problem List (Updated 10/29/24 @ 11:29 by Momo Thomas MD) Atrial fibrillation with rapid ventricular response (Acute) Cardiac pacemaker in situ (Acute) CAD in [place] artery (Acute) Left bundle branch block (Acute) Hypothyroidism (Chronic) Hypertension (Chronic) Hyperlipidemia (Chronic) CAD (coronary artery disease) PMR (polymyalgia rheumatica) Obstructive sleep apnea (adult) (pediatric) Diabetes mellitus Anxiety Insomnia (Acute) Depression with anxiety (Chronic) GERD (gastroesophageal reflux disease) Medical History Anticoagulated Failure of outpatient treatment Hematoma of right thigh Contusion of right leg Fall Right leg pain Hypoxia PAF (paroxysmal atrial fibrillation) Acute hypoxic respiratory failure COVID-19 Atrial flutter with rapid ventricular response Low magnesium level Hypokalemia Atrial fibrillation/flutter Tachy-luis syndrome Depression Hypomagnesemia Bradycardia Encounter for examination following treatment at hospital H/O atrial fibrillation without current medication Abnormal thyroid function test Unsteady gait when walking Poor balance Decreased hearing of both ears Inflamed seborrheic keratosis Skin tag Abnormal skin growth Multiple pulmonary nodules determined by computed tomography of lung External hemorrhoids Iron deficiency anemia Nasal congestion Abnormal CT of the chest Multiple pulmonary nodules Lumbar radicular pain Periumbilic rebound abdominal tenderness Abnormal CT of the chest Neutropenia Thrombocytopenia Elevated liver enzymes Allergic rhinitis Arthritis Encounter for long-term (current) use of medications Osteopenia Nasal vestibulitis GIB (gastrointestinal bleeding) Anaplasmosis Infected lesion in nose Concussion Hemorrhoids History of coronary artery disease Surgical History History of esophagogastroduodenoscopy (EGD) 02/22/21 Dr. Pablo Mckay S/P colonoscopy 02/26/21 Dr. Pablo Mckay History of bilateral oophorectomy History of hernia surgery History of back surgery Hx of hysterectomy H/O cardiac catheterization Family History Father Hypertension Heart disease Mother Stroke Other Breast cancer Myocardial infarction No family history of adverse response to anesthesia No family history of bleeding disorder Denies family history of Ovarian cancer Prostate cancer Colorectal cancer Social History Smoking Status: Never smoker Second Hand Exposure: Yes; Do You Dip or Chew Tobacco: No; Hx Alcohol Use: No Hx Substance Use: No Preferred Language: Greenlandic Communication Ability: Effective Wrapper Selector Required: No Beliefs That Will Affect Care: None marital status: Current Living Situation: Spouse Current Living Situation Comment: Lives in [facility] with current occupational status: retired How many Children do You have: 3 Feels Safe at Home: Yes caffeine: Yes Dental Care, Regularly: Yes Physical Activity Frequency: 1-2 Times per Week Seatbelt Use: always Sunscreen Use: Yes Assistive Devices: CPAP and Walker Review of Systems Review of Systems: CONSTITUTIONAL: fatigue, weakness EYES: Patient denies any visual symptoms. EARS, NOSE, AND THROAT: No difficulties with hearing. No symptoms of rhinitis or sore throat. CARDIOVASCULAR: slight chest tightness RESPIRATORY: mild SOB GI: No nausea, vomiting, diarrhea, constipation, abdominal pain, hematochezia or melena. : No urinary hesitancy or dribbling. No nocturia or urinary frequency. No abnormal urethral discharge. MUSCULOSKELETAL: chronic LE weakness NEUROLOGIC: No chronic headaches, no seizures. Patient denies numbness, tingling or weakness. PSYCHIATRIC: Patient denies problems with mood disturbance. No problems with anxiety. ENDOCRINE: No excessive urination or excessive thirst. DERMATOLOGIC: Patient denies any rashes or skin changes. Physical Exam Physical Exam: Gen: A&O 3 slightly uncomfortable HEENT: NCAT, EOMI, not icteric. External ears normal. No rhinorrhea. Moist mucous membranes. Neck: Supple, full range of motion, no observable masses, No meningeal sign. no elevated JVP Lungs: No Respiratory distress. CV: very tachycardic, slightly irregular Abdomen: Soft, nondistended, No rebound tenderness. MSK: No joint swelling, no redness. Skin: ecchymoses noted on bilateral LE, per patient chronic Neuro: Normal Gait, Grossly intact. Psych: Appropriate for situation. Results & Data Results & Data Vital Signs (Past 12 Hours) Vital Signs Temp Pulse Pulse Resp BP BP Pulse Ox 10/29/24 09:25 145 H 99/81 L 10/29/24 09:15 130 H 94 10/29/24 09:14 126 H 18 103/86 94 10/29/24 08:48 137 H 129/69 10/29/24 08:48 130 H 129/69 10/29/24 08:09 130 H 109/71 10/29/24 08:09 130 H 109/71 10/29/24 07:39 150 H 126/87 10/29/24 07:29 158 H 20 126/87 92 10/29/24 07:29 156 H 20 92 10/29/24 07:20 150 H 10/29/24 07:13 36.8 C 158 H 19 103/71 93 O2 Del Method 10/29/24 09:25 10/29/24 09:15 Room Air 10/29/24 09:14 Room Air 10/29/24 08:48 10/29/24 08:48 10/29/24 08:09 10/29/24 08:09 10/29/24 07:39 10/29/24 07:29 Room Air 10/29/24 07:29 Room Air 10/29/24 07:20 10/29/24 07:13 Room Air Laboratory Results Laboratory Results WBC 7.74 K/ul (4.8-10.8) 10/29/24 07:30 RBC 3.80 M/uL (4.20-5.40) L 10/29/24 07:30 Hgb 13.0 g/dl (12.0-16.0) 10/29/24 07:30 Hct 38.4 % (37.0-47.0) 10/29/24 07:30 MCV 101.1 fL (80.0-100.0) H 10/29/24 07:30 MCH 34.2 pg (25.0-34.0) H 10/29/24 07:30 MCHC 33.9 g/dL (32.0-36.0) 10/29/24 07:30 RDW Std Deviation 60.0 fL (36.4-46.3) H 10/29/24 07:30 RDW Coeff of Vito 16.0 % (11.5-14.5) H 10/29/24 07:30 Plt Count 225 K/uL (130-400) 10/29/24 07:30 MPV 10.8 fL (9.4-12.4) 10/29/24 07:30 Immature Gran % (Auto) 0.3 % 10/29/24 07:30 Neut % (Auto) 92.6 % 10/29/24 07:30 Lymph % (Auto) 2.3 % 10/29/24 07:30 Robertson % (Auto) 4.4 % 10/29/24 07:30 Eos % (Auto) 0.3 % 10/29/24 07:30 Baso % (Auto) 0.1 % 10/29/24 07:30 Neut # (Auto) 7.17 K/uL (1.40-6.50) H 10/29/24 07:30 Lymph # (Auto) 0.18 K/uL (1.20-3.40) L 10/29/24 07:30 Robertson # (Auto) 0.34 K/uL (0.11-0.59) 10/29/24 07:30 Eos # (Auto) 0.02 K/uL (0.00-0.50) 10/29/24 07:30 Baso # (Auto) 0.01 K/uL (0.00-0.20) 10/29/24 07:30 Immature Gran # (Auto) 0.02 K/uL (0.01-0.20) 10/29/24 07:30 Absolute Nucleated RBC 0.02 K/uL (0.00-0.12) 10/29/24 07:30 Nucleated RBC % (auto) 0.3 % 10/29/24 07:30 Polychromasia 1+ 10/29/24 07:30 Tear Drop Cells 1+ 10/29/24 07:30 Sodium 141 mmol/L (136-145) 10/29/24 07:30 Potassium 3.4 mmol/L (3.5-5.1) L 10/29/24 07:30 Chloride 106 mmol/L (98-107) 10/29/24 07:30 Carbon Dioxide 26 mmol/L (21-32) 10/29/24 07:30 Anion Gap 9 (3-11) 10/29/24 07:30 BUN 24 mg/dl (6-23) H 10/29/24 07:30 Creatinine 0.59 mg/dl (0.6-1.2) L 10/29/24 07:30 Est Cr Clr Drug Dosing 95.1 ml/min 10/29/24 07:30 eGFR 94.51 10/29/24 07:30 BUN/Creatinine Ratio 40.7 (10-20) H 10/29/24 07:30 Glucose 160 mg/dl (70-99(Fasting)) H 10/29/24 07:30 Calcium 8.6 mg/dl (8.6-10.3) 10/29/24 07:30 Magnesium 1.9 mg/dl (1.7-2.4) 10/29/24 07:30 Total Bilirubin 1.0 mg/dl (0.2-1.0) 10/29/24 07:30 AST 25 U/L (13-39) 10/29/24 07:30 ALT 27 U/L (7-52) 10/29/24 07:30 Alkaline Phosphatase 61 U/L (34-104) 10/29/24 07:30 Troponin I High Sens 12.0 pg/ml (0-14) 10/29/24 07:30 Total Protein 6.8 gm/dl (6.0-8.3) 10/29/24 07:30 Albumin 4.1 gm/dl (3.4-5.0) 10/29/24 07:30 Globulin 2.7 gm/dl (2.5-4.0) 10/29/24 07:30 Albumin/Globulin Ratio 1.5 (0.9-2) 10/29/24 07:30 Lipase 16 U/L (11-82) 10/29/24 07:30 Urine Color Yellow 10/29/24 Unknown Urine Appearance Clear (Clear) 10/29/24 Unknown Urine pH 6.0 (4.5-7.5) 10/29/24 Unknown Ur Specific [place] 1.035 (1.000-1.030) H 10/29/24 Unknown Urine Protein Negative (Negative) 10/29/24 Unknown Urine Glucose (UA) 3+ (Negative) H 10/29/24 Unknown Urine Ketones Negative (Negative) 10/29/24 Unknown Urine Blood Trace (Negative) H 10/29/24 Unknown Urine Nitrite Negative (Negative) 10/29/24 Unknown Urine Bilirubin Negative (Negative) 10/29/24 Unknown Urine Urobilinogen Negative (Negative) 10/29/24 Unknown Ur Leukocyte Esterase Negative (Negative) 10/29/24 Unknown Urine WBC (Auto) 0-5 /hpf (0-5) 10/29/24 Unknown Urine RBC (Auto) 3-5 /hpf (0-2) H 10/29/24 Unknown U Hyaline Cast (Auto) 0-2 /lpf (0-2) 10/29/24 Unknown U Epithel Cells (Auto) 0-2 /hpf (0-2) 10/29/24 Unknown Urine Bacteria (Auto) None Seen (None Seen) 10/29/24 Unknown SARS-CoV-2 (PCR) POSITIVE (Negative) A 10/29/24 Unknown Influenza Type A (PCR) Negative (Neg) 10/29/24 Unknown Influenza Type B (PCR) Negative (Neg) 10/29/24 Unknown RSV (RT-PCR) Negative (Neg) 10/29/24 Unknown Impressions Chest X-Ray 10/29/24 07:21 EXAM: XR chest 1V portable CLINICAL HISTORY: AFIB, VOMITING MCS TECHNIQUE: An X-ray image of the chest is obtained in AP projection. COMPARISON: Prior study dated 10/07/2024 FINDINGS: Pulmonary Parenchyma: Prominent broncho vascular markings, and hilar vessels with cephalization seen, suggesting pulmonary congestion. Bilateral lower lung zones linear atelectatic bands. No evidence of consolidation, collapse, or focal opacities. No pulmonary nodules are identified. No evidence of pleural effusion or pleural thickening. Heart and Mediastinum: ICD device seen No mediastinal widening or masses. No hilar or mediastinal lymphadenopathy. Bony Thorax: Bony thorax appears intact without fractures or deformities. Soft Tissues: Soft tissues overlying the chest wall are unremarkable. IMPRESSION: 1. Prominent broncho vascular markings, hilar vessels with cephalization seen, suggesting pulmonary congestion. 2. Bilateral lower lung zones linear atelectatic bands. 3. No acute cardiopulmonary abnormalities are identified. 4. ICD device seen. 5. No interval changes. Electronically signed by Gail Brito 10-29-2024 08:04 AM Medications Administered Diltiazem HCl 125 mg/ Dextrose 125 mls @ 5 mls/hr IV .Q24H [facility]; Protocol Stop: 11/28/24 09:14 Last Admin: 10/29/24 09:23 Dose: 5 mg/hr, 5 mls/hr Documented By: SY Co-signed By: CATRACHO Code Status & VTE Plan Code Status full code, discussed with patient Critical Care Time I spent a total of 75 minutes coordinating, documenting, and providing care for this critically ill patient. This patient is critically ill as evidenced by diltiazem drip for afib with RVR. (3) CAD (coronary artery disease) Coronary Disease-Associated Artery/Lesion type: [place] artery Associated angina: without angina [place] vs. transplanted heart: [place] heart Qualified Code(s): I25.10 - Atherosclerotic heart disease of [place] coronary artery without angina pectoris (4) Hyperlipidemia Hyperlipidemia type: unspecified Qualified Code(s): E78.5 - Hyperlipidemia, unspecified (5) Hypertension Hypertension type: primary hypertension Qualified Code(s): I10 - Essential (primary) hypertension (6) Hypothyroidism Hypothyroidism type: acquired Qualified Code(s): E03.9 - Hypothyroidism, unspecified (11) Insomnia Insomnia type: primary Qualified Code(s): F51.01 - Primary insomnia
[2024-10-29] MEDS: LORazepam 1 MG TAB PO STA (10:53)
[2024-10-29 11:47] LABS: Troponin I High Sensitivity 47.1 pg/ml (0-14)
[2024-10-29 11:54] LABS: Thyroid Stimulating Hormone 2.054 uIu/ml (0.300-4.500)
[2024-10-29] MEDS: METOPROLOL SUCC 25MG EXT REL TAB PO SCH (11:55)
[2024-10-29] MEDS ORDERED: traZODone HCL 50 MG TAB PO PRN (12:31)
[2024-10-29] MEDS ORDERED: GLUCAGON FOR INJ 1 MG VIAL SQ PRN (12:31)
[2024-10-29] MEDS ORDERED: LEVALBUTEROL TARTRATE 15 GM HFA.AER.AD INH PRN (12:31)
[2024-10-29] MEDS ORDERED: GLUCOSE 40% GEL 15 GM TUBE PO PRN (12:31)
[2024-10-29] MEDS ORDERED: POLYETHYLENE (MIRALAX) 17 GM PACK PO PRN (12:31)
[2024-10-29] MEDS ORDERED: DEXTROSE 50% 50 ML SYRINGE IV PRN (12:31)
[2024-10-29] MEDS ORDERED: LORazepam 1 MG TAB PO PRN (12:31)
[2024-10-29] MEDS ORDERED: CARBOHYDRATES FOR HYPOGLYCEMIA PO PRN (12:31)
[2024-10-29] MEDS ORDERED: ACETAMINOPHEN 500 MG TAB PO PRN (12:31)
[2024-10-29] MEDS ORDERED: GLUCOSE 10 TAB/TUBE PO PRN (12:31)
--- NOTE | 2024-10-29 13:17 | Cardiology Consultation ---
Date of Consultation October 29, 2024 Assessment & Plan (1) Nausea and vomiting: (2) Atrial fibrillation with rapid ventricular response: (3) Cardiac pacemaker in situ: (4) Left bundle branch block: Plan Assessment: 74 year old female with known history of P. A-fib presents with intractable nausea and vomiting x1 day, found to be in A-fib with RVR. Cardiology requested for evaluation and recommendations. Plan: 1. Nausea and Vomiting: -Likely s/t viral etiology, high incidence of norovirus in the area, and had same symptoms 2 days prior. -acute illness was likely the precipitating factor for her event. 2. A-fib with RVR: 3. cardiac PPM 4. Left BBB -Long standing history with Paroxysmal A-fib, highly symptomatic when she has an episode. patient was referred to EP by her primary reservoir engineer to discuss further medication management vs consideration for an A-fib ablation given her intolerance of her episodes. Unfortunately, she had to cancel the appointment due to a prior hospitalization due to a fall. Will assist her to get rescheduled. -History of PPM, device interrogation on chart -Continue Eliquis 5mg PO BID -Patient's home dose of metoprolol succinate is 75mg daily. She had received 25mg PO at 11am. She is now tolerating some PO liquids. Give 50mg PO now. -Recommend that we attempt to stop the Diltizem gtt and if patient should convert back to A-fib with RVR, may restart if needed. -Echocardiogram pending. -Question was raised regarding A-fib with aberrancy; this was discussed with Dr. Dyer and its important to note that given patient's chronic left bundle, the morphology of the conduction can appear changed. No concerns of VT or aberrancy. -Euvolemic on exam. -Continue Eliquis 5mg PO BID for chronic anticoagulation. Case has been discussed with Dr. Dyer. Further recommendations regarding plan of care as per his assessment. I spent a total of 40 minutes on the date of service in preparation, delivery, documentation of the care provided to the patient excluding any time spent in the performance of separately billed services. MYRIAM Bui [facility] Cardiology [facility] Supervising Physician Co-Signing Physician Notes Attending attestation: Case reviewed with the advanced practitioner. I have personally performed a history and physical examination on the patient. I have reviewed the advanced practitioner's documentation on the date of service referenced in note, and I agree with, and take responsibility for the plan of care. Subjective: Patient received diltiazem infusion at 10 mg/h. She was observed to spontaneously convert from atrial fibrillation with left bundle branch block morphology to sinus rhythm at 12:43 PM today 10/29/2024. She has a known un derlying left bundle branch block and also has a pacemaker with a left bundle lead so both her paced and pauma QRS complexes are wide beats. The EKG today when she was in atrial fibrillation was similar to Data: EKG performed 10/29/2024 at 7:05 AM and interpret independently revealed atrial fibrillation with rapid ventricular sponsor and 150 bpm underlying left bundle branch block Repeat EKG now that she is back in sinus rhythm is currently pending. Echocardiogram had been performed earlier today when she was in atrial fibrillation with very rapid ventricular rate and yielded abnormal septal motion consistent with left bundle branch block and demand ventricular pacing, otherwise the left ventricular regional wall motion was normal to hyperdynamic LVEF in the range of 60-65%. No significant valvular pathology. Impression/ Plan: Recurrent highly symptomatic atrial fibrillation Chronic left bundle branch block Noncardiac viral gastroenteritis -Discontinue diltiazem infusion -Patient's usual routine is to take metoprolol succinate 25 mg daily in the morning and 50 mg at bedtime -In addition to several doses of IV metoprolol she received a dose of metoprolol succinate 25 mg at 11:55 AM after her nausea was resolved -Her typical metoprolol succinate dose to 50 mg which she takes in the evening was administered early at 1505 -Will resume her usual metoprolol succinate 25 mg every morning 50 mg at bedtime on 10/30/2024. -If she has recurrent atrial fibrillation in the meantime, we will likely resume diltiazem infusion. -Continue Eliquis for stroke prophylaxis. She recently had a lower extremity hematoma after a fall. She only missed 2 doses of Eliquis and has been back on it without incident. I spent a total of 25 minutes coordinating, documenting, and providing care for this patient excluding time spent in the performance of separately billed services or time spent by another provider. Zay Dyer DO History of Present Illness Reason for Consultation: A-fib with RVR vs Abbarancy Requesting Physician: Momo Thomas MD Attending Physician: Momo Thomas MD History of Present Illness HPI: Patient is a 74 year old female with PMHx as stated below that presents to the ER today for complaints of nausea, vomiting and a "elevated heart rate". She experienced some chest tightness with the elevation in HR just after vomiting. She took a additional metoprolol (which she has been instructed to do by her primary reservoir engineer), but felt no improvement prompting her to present. has been sick at home with similar GI illness. Notes vomiting all night long. Kemmerer herself going to atrial fibrillation in the credit balance specialist hours of this morning, approximately 5 AM. Patient has had recent admissions for her A-fib and per review of OP records, it appears has had difficulty with maintaining rate control. She was scheduled to see EP OP on 10/22, but had cancelled the appt. She was admitted to [facility] 10/21 for worsening leg pain s/p fall with a hematoma of the right thigh. Cardiac Problems: SSS S/P dual lead pacemaker in Oct 2022 SB LBBB PAF previously on Eliquis and stopped due to GI bleed/hemorrhoids. Underwent Hemorrhoidectomy with resolution. Eliquis resumed with recurrent afib. [id number] 5 (age, female, CAD, HTN, DM). CAD non-obstructive medically managed cath 10/2006 mLAD 30%; repeat cath 09/2011 25% mLAD HTN DM Hypothyroidism INEZ on CPAP PMR - on steroids, following with Rheum EKG today demonstrates A-fib with RVR, Chronic Left BBB, rates 150bpm Device interrogation on chart. Chest xray: IMPRESSION: 1. Prominent broncho vascular markings, hilar vessels with cephalization seen, suggesting pulmonary congestion. 2. Bilateral lower lung zones linear atelectatic bands. 3. No acute cardiopulmonary abnormalities are identified. 4. ICD device seen. 5. No interval changes. Initial high sensitivity troponin 41.1. Positive SARS-CoV-2 PCR; however, patient was positive for Covid one month ago. Patient received 3 separate doses of IV lopressor 5mg each followed by Ativan, phenergan and was then started on a Diltizem gtt. Allergies Allergy/AdvReac Type Severity Reaction Status Date / Time citalopram [From Celexa] Allergy Unknown Unknown Verified 06/29/24 14:36 Sulfa (Sulfonamide Allergy Unknown UNKNOWN Verified 06/29/24 14:36 Antibiotics) albuterol AdvReac Intermediate racing Verified 06/29/24 14:36 heart Home Medications Medication Instructions Recorded Confirmed Type nitroglycerin 0.4 mg sublingual 0.4 mg sublingual Q5M PRN Chest 07/26/19 10/29/24 History tablet Pain psyllium husk 3.4 gram/5.4 gram 1 tbs PO DAILY PRN Constipation 03/10/20 10/29/24 History oral powder (Metamucil) atorvastatin 20 mg tablet 20 mg PO HS 03/19/20 10/29/24 History lorazepam 1 mg tablet 1 mg PO Q8H PRN Anxiety 03/21/20 10/29/24 History hydrochlorothiazide 25 mg tablet 25 mg PO DAILY 06/01/20 10/29/24 History cholecalciferol (vitamin D3) 25 2,000 unit PO QAM 01/04/21 10/29/24 History mcg (1,000 unit) capsule multivitamin 1 tab PO QAM 01/04/21 10/29/24 History blood sugar diagnostic (OneTouch #100 ea 01/08/21 10/21/24 Rx Ultra Blue Test Strip) levothyroxine 50 mcg tablet 50 mcg PO DAILY #30 tabs 04/04/22 10/29/24 Rx apixaban 5 mg tablet (Eliquis) 5 mg PO BID 02/26/24 10/29/24 History metformin 500 mg tablet,extended 500 mg PO QPM 02/26/24 10/29/24 History release 24 hr metoprolol succinate 25 mg 25 mg PO QAM 02/26/24 10/29/24 History tablet,extended release 24 hr trazodone 50 mg tablet 25 mg PO QPM PRN Sleep 02/26/24 10/29/24 History empagliflozin 10 mg tablet 10 mg PO DAILY 06/29/24 10/29/24 History (Jardiance) potassium chloride 20 mEq 20 meq PO BID 06/29/24 10/29/24 History tablet,extended release(part/cryst) aspirin 81 mg tablet,delayed 81 mg PO DAILY 09/24/24 10/29/24 History release metoprolol succinate 50 mg 50 mg PO QPM 09/24/24 10/29/24 History tablet,extended release 24 hr prednisone 1 mg tablet 2 mg PO DAILY 09/24/24 10/29/24 History prednisone 5 mg tablet 5 mg PO DAILY 09/24/24 10/29/24 History sertraline 100 mg tablet 150 mg PO DAILY 09/24/24 10/29/24 History levalbuterol tartrate 45 2 puff inhalation Q4H PRN 09/27/24 10/29/24 Rx mcg/actuation aerosol inhaler shortness of breath or wheezing 10 (Xopenex HFA) days #15 grams acetaminophen 500 mg tablet 1,000 mg (2 x 500 mg) PO TID #30 10/24/24 10/29/24 Rx tabs oxycodone 5 mg tablet 5 mg PO Q6H PRN pain, severe #20 10/24/24 10/29/24 Rx tabs pantoprazole 40 mg tablet,delayed 40 mg PO QAM #30 tabs 10/24/24 10/29/24 Rx release Patient History Medical History Anticoagulated Failure of outpatient treatment Hematoma of right thigh Contusion of right leg Fall Right leg pain Hypoxia PAF (paroxysmal atrial fibrillation) Acute hypoxic respiratory failure COVID-19 Atrial flutter with rapid ventricular response Low magnesium level Hypokalemia Atrial fibrillation/flutter Tachy-luis syndrome Depression Hypomagnesemia Bradycardia Encounter for examination following treatment at hospital H/O atrial fibrillation without current medication Abnormal thyroid function test Unsteady gait when walking Poor balance Decreased hearing of both ears Inflamed seborrheic keratosis Skin tag Abnormal skin growth Multiple pulmonary nodules determined by computed tomography of lung External hemorrhoids Iron deficiency anemia Nasal congestion Abnormal CT of the chest Multiple pulmonary nodules Lumbar radicular pain Periumbilic rebound abdominal tenderness Abnormal CT of the chest Neutropenia Thrombocytopenia Elevated liver enzymes Allergic rhinitis Arthritis Encounter for long-term (current) use of medications Osteopenia Nasal vestibulitis GIB (gastrointestinal bleeding) Anaplasmosis Infected lesion in nose Concussion Hemorrhoids History of coronary artery disease Surgical History History of esophagogastroduodenoscopy (EGD) 02/22/21 Dr. Pablo Mckay S/P colonoscopy 02/26/21 Dr. Pablo Mckay History of bilateral oophorectomy History of hernia surgery History of back surgery Hx of hysterectomy H/O cardiac catheterization Family History Father Hypertension Heart disease Mother Stroke Other Breast cancer Myocardial infarction No family history of adverse response to anesthesia No family history of bleeding disorder Denies family history of Ovarian cancer Prostate cancer Colorectal cancer Social History Smoking Status: Never smoker Second Hand Exposure: Yes; Do You Dip or Chew Tobacco: No; Hx Alcohol Use: No Hx Substance Use: No Preferred Language: Irish Communication Ability: Effective Market Basket Maker Required: No Beliefs That Will Affect Care: None marital status: Current Living Situation: Spouse Current Living Situation Comment: Lives in [facility] with current occupational status: retired How many Children do You have: 3 Other Information That Helps Us Care for You: No Feels Safe at Home: Yes Safety Concerns: Feels Safe At This Time caffeine: Yes Dental Care, Regularly: Yes Physical Activity Frequency: 1-2 Times per Week Seatbelt Use: always Sunscreen Use: Yes Assistive Devices: CPAP and Walker Review of Systems Review of Systems: All systems reviewed & are unremarkable except as noted in HPI & below Physical Exam Constitutional: well developed, well nourished, + ill appearing and + overw eight; no acute distress Neck: normal visual inspection and trachea midline Respiratory: normal respiratory effort; no respiratory distress, no labored breathing and no cough Auscultation: lungs clear to auscultation bilaterally; no crackles, no rales, no rhonchi and no wheezes Cardiovascular: Rate/Rhythm: regular rate (converted to SR at 12:43) and regular rhythm Heart Sounds: normal S1 and normal S2; no murmur Vessels: dorsalis pedis pulses present; no JVD Extremities: no edema Skin: no rashes, warm and dry + ecchymosis (ecchymosis s/p fall on both legs, multiple stages of healing) Psychiatric: A+Ox3, euthymic affect Results & Data Vital Signs (Past 12 Hours) Vital Signs Temp Pulse Pulse Resp BP BP Pulse Ox 10/29/24 12:49 36.5 C 62 18 112/83 96 10/29/24 12:31 10/29/24 11:57 138 H 20 126/84 94 10/29/24 10:44 135 H 19 102/80 93 10/29/24 10:43 88 L 10/29/24 09:25 145 H 99/81 L 10/29/24 09:15 130 H 94 10/29/24 09:14 126 H 18 103/86 94 10/29/24 08:48 137 H 129/69 10/29/24 08:48 130 H 129/69 10/29/24 08:09 130 H 109/71 10/29/24 08:09 130 H 109/71 10/29/24 07:39 150 H 126/87 10/29/24 07:29 158 H 20 126/87 92 10/29/24 07:29 156 H 20 92 10/29/24 07:20 150 H 10/29/24 07:13 36.8 C 158 H 19 103/71 93 O2 Del Method O2 Flow Rate 10/29/24 12:49 Nasal Cannula 2 10/29/24 12:31 Room Air 10/29/24 11:57 Nasal Cannula 10/29/24 10:44 Nasal Cannula 2 10/29/24 10:43 Room Air 10/29/24 09:25 10/29/24 09:15 Room Air 10/29/24 09:14 Room Air 10/29/24 08:48 10/29/24 08:48 10/29/24 08:09 10/29/24 08:09 10/29/24 07:39 10/29/24 07:29 Room Air 10/29/24 07:29 Room Air 10/29/24 07:20 10/29/24 07:13 Room Air Laboratory Results Cardiac Enzymes 10/29/24 10/29/24 Range/Units 07:30 10:38 AST 25 (13-39) U/L Troponin I High Sens 12.0 47.1 H D (0-14) pg/ml B-Natriuretic Peptide 224 H (0-100) pg/ml Coagulation 10/29/24 Range/Units 10:38 B-Natriuretic Peptide 224 H (0-100) pg/ml CBC 10/29/24 Range/Units 07:30 WBC 7.74 (4.8-10.8) K/ul RBC 3.80 L (4.20-5.40) M/uL Hgb 13.0 (12.0-16.0) g/dl Hct 38.4 (37.0-47.0) % Plt Count 225 (130-400) K/uL Neut # (Auto) 7.17 H (1.40-6.50) K/uL Lymph # (Auto) 0.18 L (1.20-3.40) K/uL [place] # (Auto) 0.34 (0.11-0.59) K/uL Eos # (Auto) 0.02 (0.00-0.50) K/uL Baso # (Auto) 0.01 (0.00-0.20) K/uL Comprehensive Metabolic Panel 10/29/24 Range/Units 07:30 Sodium 141 (136-145) mmol/L Potassium 3.4 L (3.5-5.1) mmol/L Chloride 106 (98-107) mmol/L Carbon Dioxide 26 (21-32) mmol/L BUN 24 H (6-23) mg/dl Creatinine 0.59 L (0.6-1.2) mg/dl Glucose 160 H (70-99(Fasting)) mg/dl Calcium 8.6 (8.6-10.3) mg/dl AST 25 (13-39) U/L ALT 27 (7-52) U/L Alkaline Phosphatase 61 (34-104) U/L Total Protein 6.8 (6.0-8.3) gm/dl Albumin 4.1 (3.4-5.0) gm/dl Intake and Output 10/28/24 10/29/24 10/29/24 22:59 06:59 14:59 Intake Total 562.917 / 562.917 Balance 562.917 / 562.917 Intake: IV 562.917 / 562.917 Promethazine 6.25 mg In 50.25 50.25 / 50.25 ml @ 201 mls/hr IV NOW STA Rx#: [id number] Sodium Chloride 0.9% 500 ml @ 500 / 500 999 mls/hr IV .Q31M ONE Rx#: [id number] dilTIAZem HCL 125 mg In 12.667 / 12.667 Dextrose 5% 100 ml @ 10 MG/HR 10 mls/hr IV .[id number] XANDER Rx#: [id number] Other: # Unmeasured Voids 1 Weight 98 kg Weight Measurement Method Built in [facility] Patient Weight 10/30/24 06:59 Weight 98 kg Diagnostic Findings Echocardiogram 02/27/2024: LV systolic function is normal LVEF 55-60% LA is mildly dilated Mild MR Mild TR No suggestion of pulmonary HTN
[2024-10-29] MEDS: ASPIRIN 81 MG ECTAB PO SCH (14:16)
[2024-10-29] MEDS: CHOLECALCIFEROL 25 MCG (1000 UNITS) TAB PO SCH (14:17)
[2024-10-29] MEDS: SERTRALINE HCL 50 MG TABLET PO SCH (14:18)
[2024-10-29] MEDS: APIXABAN 5 MG TABLET PO SCH (14:18)
[2024-10-29] MEDS: PANTOprazole 40 MG TAB PO SCH (14:19)
[2024-10-29] MEDS: LEVOTHYROXINE SODIUM 50 MCG TABLET PO SCH (14:19)
[2024-10-29] MEDS: INSULIN ASPART PER UNIT CHARGE SC SCH (14:25)
--- NOTE | 2024-10-29 14:58 | Electrocardiogram Report ---
Test Reason : Blood Pressure : */* mmHG Vent. Rate : 150 BPM Atrial Rate : 67 BPM P-R Int : 120 ms QRS Dur : 142 ms QT Int : 352 ms P-R-T Axes : * -43 113 degrees QTcB Int : 556 ms Atrial fibrillation with rapid ventricular response Left axis deviation Left bundle branch block Abnormal ECG When compared with ECG of 07-Oct-2024 17:40, Significant changes have occurred Confirmed by Marck Salas ([id number]) on 10/29/2024 2:58:21 PM Referred By: Confirmed By: Marck Salas
[2024-10-29] MEDS: METOPROLOL SUCC 50MG EXT REL TAB PO STA (15:05)
[2024-10-29] MEDS: predniSONE 2.5 MG TAB PO SCH (15:58)
[2024-10-29] MEDS: predniSONE 5 MG TAB PO SCH (16:13)
[2024-10-29] MEDS: ATORVASTATIN 20 MG TAB PO SCH (21:05)
[2024-10-30] MEDS: LEVOTHYROXINE SODIUM 75 MCG TABLET PO SCH (06:11)
[2024-10-30 07:55] LABS: BUN Creatinine Ratio 34.4 (10-20); Calcium 8.4 mg/dl (8.6-10.3); Creatinine Clr Calc Pharmacy 91.6 ml/min; Magnesium 2.1 mg/dl (1.7-2.4); Potassium 3.6 mmol/L (3.5-5.1)
[2024-10-30] MEDS ORDERED: predniSONE 2.5 MG TAB PO SCH (09:00)
[2024-10-30] MEDS: METOPROLOL SUCC 25MG EXT REL TAB PO SCH (09:04)
[2024-10-30] MEDS: VITAMIN B COMPLEX TAB PO SCH (09:04)
[2024-10-30] MEDS: FOLIC ACID 1 MG TAB PO SCH (09:04)
[2024-10-30 09:55] LABS: Troponin I High Sensitivity 110.9 pg/ml (0-14)
--- NOTE | 2024-10-30 10:13 | Hospitalist Progress Note ---
Date of Service October 30, 2024 Assessment & Plan (1) Nausea and vomiting: Plan: Patient reported history of nausea and vomiting for last 2 days. She reports that her had similar symptoms. She denies any diarrhea or abdominal pain. Likely causes viral gastroenteritis Continue full liquid diet, Antiemetic Advance diet as tolerated (2) Atrial fibrillation with rapid ventricular response: (3) Cardiac pacemaker in situ: Plan: Patient presented to the hospital with nausea, vomiting. She was found to have atrial fibrillation with RVR. EKG on admission showed atrial fibrillation with rapid ventricular response and underlying left bundle branch block. Echocardiogram showed atrial fibrillation with RVR and abnormal septal motion consistent with left bundle branch block and demand ventricular pacing. EF of 60 to 65% Patient was then started on diltiazem drip; converted to sinus rhythm. Patient takes 25 mg of metoprolol every morning and 50 at bedtime; switch over to 50 mg twice a day. (4) CAD (coronary artery disease): (5) Hyperlipidemia: Plan: -continue statin (6) Hypertension: Plan: -on HCTZ and metoprolol, continue (7) Hypothyroidism: Plan: -on levothyroxine at home, continue home dose (8) GERD (gastroesophageal reflux disease): Plan: -continue protonix (9) Depression with anxiety: Plan: -continue home meds (10) Insomnia: Plan: -continue home trazadone (11) Anxiety: Plan: -continue sertraile (12) Diabetes mellitus: Plan: -on metformin at home -ACHS checks with novolog correction as needed (13) Obstructive sleep apnea (adult) (pediatric): Plan: -CPAP ordered, on at home (14) PMR (polymyalgia rheumatica): Plan: -continue home prednisone (15) Hypokalemia: Plan: Repleted Plan Full code DVT prophylaxis Eliquis Please note the above document was generated using voice recognition software. It may contain grammatical, syntax or spelling errors. Any formal questions or concerns about the content, text or information contained within the body of this dictation should be directly addressed to the provider for clarification Admission and Anticipated Discharge Date Admission Date: October 29, 2024 Subjective Patient seen and examined at bedside. She reports that she is feeling nauseous after eating breakfast She denies abdominal pain or discomfort. No diarrhea She continues to remain in sinus rhythm Review of Systems Review of Systems: All systems reviewed & are unremarkable except as noted in Subjective Physical Exam Physical Exam: Constitutional: WD/WN, vitals as above, NAD, sitting up in bed, pleasant, conversing easily Respiratory: normal respiratory effort, lungs clear to auscultation, no wheeze, rales, rhonchi. Normal insp/exp effort, no accessory muscle use Cardiovascular: RRR, no murmur, no edema Vessels: no JVD or carotid bruit Chest: normal inspection of chest Abdomen: normal bowel sounds, soft, nontender, no hepatosplenomegaly Musculoskeletal: no cyanosis or clubbing, extremities motor strength 5/5 Skin: no rashes, warm and dry normal turgor Neurologic: PERRL, EOMI, accommodation nl, no face palsy, no dysarthria CN's II- XI intact bilaterally and moves all extremities Psychiatric: A+Ox3, euthymic affect Results & Data Results & Data Vital Signs (Past 12 Hours) Vital Signs Temp Pulse Pulse Resp BP Pulse Ox O2 Del Method 10/30/24 07:24 36.8 C 62 18 120/79 94 CPAP 10/30/24 03:13 36.8 C 60 16 118/69 96 Nasal Cannula 10/29/24 23:02 36.9 C 60 18 118/58 L 93 Nasal Cannula O2 Flow Rate 10/30/24 07:24 10/30/24 03:13 2 10/29/24 23:02 2 (4) CAD (coronary artery disease) Associated angina: without angina Coronary Disease-Associated Artery/Lesion type: [place] artery [place] vs. transplanted heart: [place] heart Qualified Code(s): I25.10 - Atherosclerotic heart disease of [place] coronary artery without angina pectoris (5) Hyperlipidemia Hyperlipidemia type: unspecified Qualified Code(s): E78.5 - Hyperlipidemia, unspecified (6) Hypertension Hypertension type: primary hypertension Qualified Code(s): I10 - Essential (primary) hypertension (7) Hypothyroidism Hypothyroidism type: acquired Qualified Code(s): E03.9 - Hypothyroidism, unspecified (10) Insomnia Insomnia type: primary Qualified Code(s): F51.01 - Primary insomnia
--- NOTE | 2024-10-30 11:55 | Cardiology Progress Note ---
Date of Service October 30, 2024 Assessment & Plan (1) Nausea and vomiting: (2) Atrial fibrillation with rapid ventricular response: (3) Cardiac pacemaker in situ: (4) Left bundle branch block: Plan -Suspect viral gastroenteritis -mild troponin elevation due to demand ischemia in setting of several hours of tachycardia -Increase metoprolol succinate to 50 mg PO BID -Continue Eliquis -Stable for discharge from cardiac perspective , once nausea improves. Admission and Anticipated Discharge Date Admission Date: October 29, 2024 Subjective Remains in SR since conversion from AF to SR in the ED on 10/29. Denies cardiac complaints. [place] improved first thing this am, then has developed recurrent nausea after having some toast. Physical Exam Constitutional: well developed, well nourished, + ill appearing and + overweight; no acute distress Neck: normal visual inspection and trachea midline Respiratory: normal respiratory effort; no respiratory distress, no labored breathing and no cough Auscultation: lungs clear to auscultation bilaterally; no crackles, no rales, no rhonchi and no wheezes Cardiovascular: Rate/Rhythm: regular rate and regular rhythm Heart Sounds: normal S1 and normal S2; no murmur Vessels: dorsalis pedis pulses present; no JVD Extremities: no edema Skin: no rashes, warm and dry + ecchymosis (ecchymosis s/p fall on both legs, multiple stages of healing) Psychiatric: A+Ox3, euthymic affect Results & Data Vital Signs (Past 12 Hours) Vital Signs Temp Pulse Resp BP Pulse Ox O2 Del Method O2 Flow Rate 10/30/24 10:55 36.3 C L 62 18 106/66 92 Room Air 10/30/24 07:24 36.8 C 62 18 120/79 94 CPAP 10/30/24 03:13 36.8 C 60 16 118/69 96 Nasal Cannula 2
[2024-10-30] MEDS ORDERED: PROMETHAZINE 6.25 MG/50.25 ML BAG IV PRN (11:59)
[2024-10-30] MEDS: OPTIRAY 320 100ml IV ONE (16:56)
--- NOTE | 2024-10-30 17:39 | CT Scan Report ---
EXAMINATION: CT of the abdomen and pelvis performed after the administration of IV contrast TECHNIQUE: Helical CT images from the lung bases through the symphysis pubis were obtained with contrast. Coronal and sagittal reformatted images were generated at a workstation for further assessment. Dose reduction techniques were achieved by using automatic exposure control and/or adjustment of mA and/or kV according to patient size and/or use of iterative reconstruction technique. COMPARISON: 10/21/2024 HISTORY: Abdominal pain FINDINGS: Lower chest: Streaky bibasilar atelectasis peripherally. No consolidation. No pleural effusion or pneumothorax. The heart is enlarged. AICD leads are in place. Liver: Tiny cyst in the right lobe. No suspicious liver lesions. Portal veins appear patent. Gallbladder: No gallstones. No evidence of acute cholecystitis. Spleen: Normal size. Pancreas: No suspicious pancreatic lesions. The pancreatic duct is not dilated. Adrenal glands: Unchanged 1.5 cm low density nodule of the right adrenal gland, most compatible with an adenoma. Normal left adrenal gland. Kidneys: No hydronephrosis or obstructing renal stones. Bladder / Pelvic organs: Unremarkable. Bowel: No bowel obstruction. No abnormal bowel wall thickening. The appendix is unremarkable. Left colonic diverticulosis without evidence for diverticulitis. Lymph nodes: No retroperitoneal, mesenteric, or pelvic lymphadenopathy. Peritoneum / Retroperitoneum: No free fluid or air within the abdomen. Vessels: No infrarenal aortic aneurysm. Bones and soft tissues: No suspicious lesion in the bones. IMPRESSION: No acute finding in the abdomen or pelvis. Electronically signed by Stanford Salas 10-30-2024 5:39 PM
[2024-10-30] MEDS ORDERED: METOPROLOL SUCC 50MG EXT REL TAB PO SCH (21:00)
[2024-10-30] MEDS: METOPROLOL SUCC 50MG EXT REL TAB PO SCH (21:25)
[2024-10-30] MEDS: ONDANSETRON INJ 2 MG/ML 2 ML VIAL IV PRN (21:33)
[2024-10-30 23:49] LABS: Adenovirus F 40/41 PCR Not Detected (NotDetected); Astrovirus PCR Not Detected (NotDetected); Campylobacter PCR Not Detected (NotDetected); Cryptosporidium PCR Not Detected (NotDetected); Cyclospora cayetanensis PCR Not Detected (NotDetected); Entamoeba histolytica PCR Not Detected (NotDetected); Enteroaggregative E.coli(EAEC) Not Detected (NotDetected); Enteropathogenic E.coli (EPEC) Not Detected (NotDetected); Enterotoxigenic E.coli (ETEC) Not Detected (NotDetected); Giardia lamblia PCR Not Detected (NotDetected); Plesiomonas shigelloides PCR Not Detected (NotDetected); Rotavirus A PCR Not Detected (NotDetected); Salmonella PCR Not Detected (NotDetected); Sapovirus PCR Not Detected (NotDetected); Shiga-like Toxin E.coli (STEC) Not Detected (NotDetected); Shigella/Enteroinvasive E.coli Not Detected (NotDetected); Vibrio cholerae PCR Not Detected (NotDetected); Vibrio species PCR Not Detected (NotDetected); Yersinia enterocolitica PCR Not Detected (NotDetected)
[2024-10-31 00:14] LABS: Norovirus GI/GII PCR DETECTED (NotDetected)
[2024-10-31 07:48] VITALS: RESP 18; TEMP 97.5
--- NOTE | 2024-10-31 10:17 | Discharge Summary ---
Date of Service October 31, 2024 Admission HPI Per Admitting Provider 74-year-old female with past medical history of left bundle branch block, diabetes type 2, hyperlipidemia, hypothyroidism, polymyalgia rheumatica, HFpEF, sick sinus syndrome, CAD, A-fib with pacemaker who presents for nausea and vomiting. She also noted that she had a fast heart rate. When she was at home she felt very sick to her stomach and also noted a little bit of a tightness in her chest and then noticed that her heart was racing. This has happened before normally she takes a metoprolol tablet from her home medications and it goes away. This time it did not. Had COVID 1 month ago. Denies tobacco use alcohol use or other drug use. Has been taking all medications as prescribed. Has chronic lower extremity pain. Denies headache shortness of breath swelling in the legs. Admission Exam Per Admitting Provider Gen: A&O 3 slightly uncomfortable HEENT: NCAT, EOMI, not icteric. External ears normal. No rhinorrhea. Moist muco us membranes. Neck: Supple, full range of motion, no observable masses, No meningeal sign. no elevated JVP Lungs: No Respiratory distress. CV: very tachycardic, slightly irregular Abdomen: Soft, nondistended, No rebound tenderness. MSK: No joint swelling, no redness. Skin: ecchymoses noted on bilateral LE, per patient chronic Neuro: Normal Gait, Grossly intact. Psych: Appropriate for situation. Principal Diagnosis Viral gastroenteritis Atrial fibrillation with RVR Discharge Exam Constitutional: WD/WN, vitals as above, NAD, sitting up in bed, pleasant, conversing easily Respiratory: normal respiratory effort, lungs clear to auscultation, no wheeze, rales, rhonchi. Normal insp/exp effort, no accessory muscle use Cardiovascular: RRR, no murmur, no edema Vessels: no JVD or carotid bruit Chest: normal inspection of chest Abdomen: normal bowel sounds, soft, nontender, no hepatosplenomegaly Musculoskeletal: no cyanosis or clubbing, extremities motor strength 5/5 Skin: no rashes, warm and dry normal turgor Neurologic: PERRL, EOMI, accommodation nl, no face palsy, no dysarthria CN's II- XI intact bilaterally and moves all extremities Psychiatric: A+Ox3, euthymic affect Discharge Data Allergies Allergy/AdvReac Type Severity Reaction Status Date / Time citalopram [From Celexa] Allergy Unknown Unknown Verified 06/29/24 14:36 Sulfa (Sulfonamide Allergy Unknown UNKNOWN Verified 06/29/24 14:36 Antibiotics) albuterol AdvReac Intermediate racing Verified 06/29/24 14:36 heart Consultations 10/29/24 10:31 Consult Cardiology Routine 10/30/24 08:37 Consult Cardiology Routine Ordered Studies 10/30/24 15:51 CT Abd and Pelvis [CT abd pelvis IV con only] Routine Hospital Course (1) Nausea and vomiting: Patient reported history of nausea and vomiting for last 2 days. She reports that her had similar symptoms. Stool PCR is positive for norovirus. Patient was treated with supportive care. No nausea/vomiting Patient was asked to continue oral hydration at home. (2) Atrial fibrillation with rapid ventricular response: (3) Cardiac pacemaker in situ: Patient presented to the hospital with nausea, vomiting. She was found to have atrial fibrillation with RVR. EKG on admission showed atrial fibrillation with rapid ventricular response and underlying left bundle branch block. Echocardiogram showed atrial fibrillation with RVR and abnormal septal motion consistent with left bundle branch block and demand ventricular pacing. EF of 60 to 65% Patient was then started on diltiazem drip; converted to sinus rhythm. Patient takes 25 mg of metoprolol every morning and 50 at bedtime; switch over to 50 mg twice a day at discharge. (4) CAD (coronary artery disease): (5) Hyperlipidemia: -continue statin (6) Hypertension: -on HCTZ and metoprolol, continue (7) Hypothyroidism: -on levothyroxine at home, continue home dose (8) GERD (gastroesophageal reflux disease): -continue protonix (9) Depression with anxiety: -continue home meds (10) Insomnia: -continue home trazadone (11) Anxiety: -continue sertraile (12) Diabetes mellitus: -on metformin at home -ACHS checks with novolog correction as needed (13) Obstructive sleep apnea (adult) (pediatric): -CPAP ordered, on at home (14) PMR (polymyalgia rheumatica): -continue home prednisone (15) Hypokalemia: Repleted Plan Please note the above document was generated using voice recognition software. It may contain grammatical, syntax or spelling errors. Any formal questions or concerns about the content, text or information contained within the body of this dictation should be directly addressed to the provider for clarification Total Time Total Time Spent Total Time Spent (In Minutes): 45 Total Time Includes: Examination of the Patient, Discharge Planning, Medication Reconciliation, Communication With Other Providers and Other Discharge Plan Discharge Items Patient Disposition: Home - Self-Care Reason For Visit: AFIB WITH RVR Discharge Diagnosis: Atrial fibrillation with RVR Viral gastroenteritis Activity: Resume your previous activity Non-emergency contact: Primary Care Provider Call non-emergency contact if: you have any medication questions and your symptoms worsen Follow-up/Referrals: Dylan Barros MD [Primary Care Provider] - Diet: Carb Consistent or DM2 Addtl Attending Provider Instructions: You were admitted to the hospital due to nausea/vomiting and atrial fibrillation RVR. Your evaluated by cardiology for the elevated heart rate; recommended that the metoprolol dose is increased from 25 mg in a.m., 50 mg in p.m. to 50 mg twice a day. You are also found to have norovirus infection. It is self-limiting infection; please continue to keep yourself hydrated. Follow-up with your primary care doctor. An appointment with your primary care doctor will be made for you for some time next week. Pending Studies at Discharge: No Stand-Alone Forms: [employer] Medical Navigation, Smoking Cessation Medications and DC Order Prescriptions: Continued (DME) OneTouch Ultra Blue Test Strip Strip See Rx Instructions .ROUTE .MEDSUPPLY Qty: 100 5RF Rx Instructions: Please test once in the morning and once throughout day nitroglycerin 0.4 mg tablet, sublingual 0.4 mg SL Q5M PRN (Reason: Chest Pain) Metamucil 3.4 gram/5.4 gram powder 1 tbs PO DAILY PRN (Reason: Constipation) cholecalciferol (vitamin D3) 25 mcg (1,000 unit) capsule 2,000 unit PO QAM multivitamin Tablet 1 tab PO QAM levothyroxine 50 mcg tablet 50 mcg PO DAILY Qty: 30 5RF Rx Instructions: DOSE CHANGE 04/04/22 Take 1.5 tablets every other day alternating with 1 tablet daily hydrochlorothiazide 25 mg tablet 25 mg PO DAILY Hold Instructions: Hold for 2 days and then resume Jardiance 10 mg tablet 10 mg PO DAILY atorvastatin 20 mg tablet 20 mg PO HS lorazepam 1 mg Tablet 1 mg PO Q8H PRN (Reason: Anxiety) metformin 500 mg tablet extended release 24 hr 500 mg PO QPM trazodone 50 mg tablet 25 mg PO QPM PRN (Reason: Sleep) Eliquis 5 mg tablet 5 mg PO BID potassium chloride 20 mEq tablet,ER particles/crystals 20 meq PO BID prednisone 5 mg tablet 5 mg PO DAILY prednisone 1 mg tablet 2 mg PO DAILY Rx Instructions: taper dose moves down to 6mg on tuesday 10/31 sertraline 100 mg tablet 150 mg PO DAILY aspirin 81 mg Tablet,Delayed Release (Dr/Ec) 81 mg PO DAILY levalbuterol tartrate [Xopenex HFA] 45 mcg/actuation Hfa Aerosol Inhaler 2 puff inhalation Q4H PRN (Reason: shortness of breath or wheezing) 10 Days Qty: 15 1RF pantoprazole 40 mg Tablet,Delayed Release (Dr/Ec) 40 mg PO QAM Qty: 30 0RF oxycodone 5 mg Tablet 5 mg PO Q6H PRN (Reason: pain, severe) Qty: 20 0RF acetaminophen 500 mg tablet 1,000 mg PO TID Qty: 30 0RF Changed metoprolol succinate 50 mg tablet extended release 24 hr 50 mg PO BID Qty: 60 0RF Discontinued metoprolol succinate 25 mg tablet extended release 24 hr 25 mg PO QAM Discharge Orders: Discharge Order (Routine); Ordered 10/31/24 Ordered By: Travon Lazar Admission Data Admit Date/Time: 10/29/24 10:17 Attending Provider: Travon Lazar Admit Provider: Momo Thomas Primary Care Provider: Dylan Barros Other Providers: Momo Thomas; Zay Dyer
[2024-10-31 11:35] VITALS: BP 122/78; O2SAT 95
[2024-10-31 13:49] VITALS: PULSE 60
== END 2024-10-31 14:36 | disposition home or self-care (01) | DRG 392 ==
LOC: ED 06:56 → EDINP 10:17 → SUATTDRO 10:17 → 4W 12:31

== ENCOUNTER 2025-06-09 12:19 | Inpatient (IN) ==
[2025-06-09] MEDS: ONDANSETRON INJ 2 MG/ML 2 ML VIAL ONE (12:43)
[2025-06-09 13:02] LABS: Hematocrit (blood only) 39.9 % (37.0-47.0); Hemoglobin 13.8 g/dl (12.0-16.0); Immature Granulocytes # (auto) 0.02 K/uL (0.01-0.20); Immature Granulocytes % (auto) 0.3 %; Mean Corpuscular Hemoglobin 34.2 pg (25.0-34.0); Mean Corpuscular Volume 98.8 fL (80.0-100.0); Platelet Count 203 K/uL (130-400); RDW Standard Deviation 50.4 fL (36.4-46.3); Red Blood Count 4.04 M/uL (4.20-5.40); White Blood Count 6.36 K/ul (4.8-10.8)
[2025-06-09 13:09] LABS: Alanine Aminotransferase 18.0 U/L (7-52); Albumin Globulin Ratio 1.6 (0.9-2); Alkaline Phosphatase 63.0 U/L (34-104); Anion Gap 7.0 (3-11); Bilirubin,Total 0.7 mg/dl (0.2-1.0); Blood Urea Nitrogen 21.0 mg/dl (6-23); Calcium 9.8 mg/dl (8.6-10.3); Carbon Dioxide 28.0 mmol/L (21-32); Chloride 104.0 mmol/L (98-107); Creatinine Clr Calc Pharmacy 72.3 ml/min; Globulin 2.7 gm/dl (2.5-4.0); Glucose 113.0 mg/dl (70-99(Fasting)); Lipase 22.0 U/L (11-82); Potassium 3.6 mmol/L (3.5-5.1); Sodium 139.0 mmol/L (136-145); Total Protein 7.1 gm/dl (6.0-8.3)
--- NOTE | 2025-06-09 13:24 | CT Scan Report ---
CT head/brain wo con CLINICAL HISTORY: Trauma, blood thinners. TECHNIQUE: Multiple axial CT images of the head were obtained without contrast. A dose lowering tech nique was utilized adhering to the principles of ALARA. CT DOSE: 1937 COMPARISON: 10/07/2024 FINDINGS: There is a 5 cm left frontal scalp hematoma. No underlying skull fracture seen. No intracra nial hemorrhage seen. No mass effect, midline shift, or hydrocephalus. Paranasal sinuses and mastoid air cells are clear. IMPRESSION: 1. No acute intracranial finding. 2. Left frontal scalp hematoma. ACT 112: Negative or not required by law. The above report was generated using voice recognition software. It may contain grammatical, syntax o r spelling errors. Electronically signed by: Rick Harrington M.D. 06/09/2025 1:23 PM
[2025-06-09 13:30] LABS: INR 1.0 (0.9-1.1); Partial Thromboplastin Time 28 Seconds (21-31); Prothrombin Time 10.9 Seconds (9.0-12.0)
--- NOTE | 2025-06-09 13:36 | CT Scan Report ---
CT facial bones wo con CLINICAL HISTORY: 74 years-old Female presenting with Trauma, blood thinners. Acute facial trauma COMPARISON STUDY: Head CT 06/09/2025 TECHNIQUE: High-resolution CT scan of the facial bones is performed. Images are reviewed in the axia l, sagittal, and coronal planes. IV contrast was not administered for this examination. A dose lower ing technique was utilized adhering to the principles of ALARA. CT DOSE: 1937.44 mGy.cm FINDINGS: Streak artifact from dental amalgam hardware. Head CT dictated separately. Large left anterior frontal scalp hematoma measures up to 7 cm. Left periorbital and left cheek contu sions are also noted with a lateral left cheek contusion measuring up to approximately 3 cm. Prior bi lateral lens repair. No opaque foreign bodies identified. The imaged calvarium appears intact. Mastoi d air cells are clear. Multilevel degenerative changes of the cervical spine. Paranasal sinuses are g enerally clear. There is mild cortical irregularity of the bilateral nasal bones without displacement . No acute displaced fracture identified. IMPRESSION: 1. Cortical irregularity of the nasal bones, suggestive of subtle age indeterminate fractures. Correl ate with point tenderness. 2. Large left forehead and facial contusions. ACT 112: Negative or not required by law. The above report was generated using voice recognition software. It may contain grammatical, syntax o r spelling errors. Electronically signed by: Domenic Shahid M.D. 06/09/2025 1:34 PM
--- NOTE | 2025-06-09 13:57 | XRay Report ---
XR hand LT min 3V routine CLINICAL HISTORY: trauma, pain COMPARISON: 07/22/2019 FINDINGS: There are scattered degenerative changes. There is a bone island fourth distal phalanx. No acute fracture or dislocation seen. IMPRESSION: No fracture seen. ACT 112: Negative or not required by law. Electronically signed by: Rick Harrington M.D. 06/09/2025 1:56 PM
--- NOTE | 2025-06-09 13:58 | XRay Report ---
XR shoulder LT min 2V routine CLINICAL HISTORY: left shoulder pain, trauma COMPARISON: 07/22/2019 FINDINGS: There are mild degenerative changes. No fracture or dislocation. IMPRESSION: No fracture seen. ACT 112: Negative or not required by law. Electronically signed by: Rick Harrington M.D. 06/09/2025 1:56 PM
--- NOTE | 2025-06-09 14:05 | XRay Report ---
XR pelvis 1-2V routine CLINICAL HISTORY: Trauma pain COMPARISON: 10/21/2024 FINDINGS: No fractures or dislocations are visualized. IMPRESSION: No fractures identified. ACT 112: Negative or not required by law. Electronically signed by: Nathan Thacker M.D. 06/09/2025 2:04 PM
--- NOTE | 2025-06-09 14:09 | CT Scan Report ---
CT SCAN OF THE CERVICAL SPINE CLINICAL HISTORY: Pain status post trauma COMPARISON STUDY: TECHNIQUE: CT scan of the cervical spine is performed from the skull base to the upper thoracic spine . Images are reviewed in the axial, sagittal, and coronal planes. IV contrast was not administered fo r this examination. A dose lowering technique was utilized adhering to the principles of ALARA. CT DOSE: FINDINGS: There is no evidence of significant prevertebral edema. There are multilevel degenerative changes pre sent. No acute fractures or traumatic subluxations are visualized. Visualized portions lung apices reveal no evidence of pneumothorax. There are no mastoid effusions. IMPRESSION: 1. No acute cervical spine fracture or subluxation. 2. Multilevel degenerative change. ACT 112: Negative or not required by law. Electronically signed by: Nathan Thacker M.D. 06/09/2025 2:07 PM
[2025-06-09] MEDS: ACETAMINOPHEN 1,000 MG/100 ML VIAL IV STA (14:16)
--- NOTE | 2025-06-09 14:49 | Emergency Department Note ---
Impression & Plan Concussion, Hypoxemia ED Provider Note NAME: KANE MOJICA AGE: 74 SEX: F : 1950 ARRIVES VIA: Ambulance INFORMANT: Patient, ED PROVIDER(S): Malgorzata Calero MD CHIEF COMPLAINT: Head trauma HPI: This is 74-year-old female presenting for head trauma. Patient was outside gardening when she tripped over some weeds and she fell onto the ground. Struck her head and face against cinderblocks. She notes no LOC. She does take Eliquis for A-fib. She noted pain to her left hand and shoulder. She has pain to the neck as well. She reports current nausea. ROS: See above HPI for pertinent positives & negatives. A total of 10 systems reviewed and were otherwise negative. PAST MEDICAL HISTORY: See Below PAST SURGICAL HISTORY: See Below FAMILY HISTORY: See Below SOCIAL HISTORY: See Below HOME MEDICATIONS: See Below ALLERGIES: See Below VITALS: See Below PHYSICAL EXAMINATION: Primary Survey Airway: Intact Breathing: Normal, breath sounds equal bilaterally Circulation: Skin warm, distal pulses 2+ Disability Pupils: Equal and reactive to light GCS: 15, Motor Function: Moves all extremities. Sensory: No deficits Secondary Survey GEN: Well developed and well-nourished HEAD: Normal cephalic, left forehead and periorbital hematoma, abrasions to left face/nose EYES: Pupils round reactive to light, conjunctiva clear, extraocular movements intact, no raccoons eyes ENT: Nares patent, oropharynx clear, NECK: No JVD, midline trachea, C-collar in place HEART: Regular rate and rhythm LUNGS: Clear to auscultation bilaterally. CHEST: Chest wall non-tender, no bruising/deformity ABD: soft, non-tender, no rebound or guarding, PELVIS: Stable to rock EXT: 2+ global pulses, moving all extremities well, +5/5 muscle strength globally, left hand ecchymosis/tenderness NEURO: CNII-XII grossly intact, no sensory deficits MEDICAL DECISION MAKING: This is a 74-year-old female presenting for head trauma. Patient has significant external trauma including ecchymosis, abrasions to left face with significant hematoma over the left forehead and periorbital space. Will do screening head CT, facial CT to assess for facial fractures, intracranial hemorrhage. Will do cervical spine CT as well. Will do left shoulder and hand x-ray due to pain in these locations. No obvious deformities to either. - Patient was are clean, showed no signs of a laceration repair needs. Are most consistent with abrasion -CT imaging of the head, C-spine and face revealed no acute traumatic injuries aside from large hematoma -Shoulder, hand and pelvic x-ray are reassuring without signs of osseous fracture or dislocation -Patient reevaluated, still nauseous with severe pain. She feels lightheaded. Will give further pain medicine and antiemetic. -Nurse notes that patient became hypoxic to about 79 to 82%. Will send patient back for CT imaging of the chest despite no obvious trauma on her exam -CT chest unrevealing at this time. -Patient reassessed again, still feels lightheaded, unable to ambulate well. Do believe patient is having signs of fairly severe concussion. Will admit at this time for observation. Family does not think that being take care of her in her current state. Differential diagnosis: Intracranial hemorrhage, skull fracture, cervical spine fracture Independent History obtained from: Diagnostics interpreted by me: ECG: None Cardiac Monitoring: An order was placed for continuous cardiac monitoring. The monitor shows a rate of 60 with sinus rhythm. Past Med/Surg History Problem List (Updated 06/09/25 @ 16:28 by Malgorzata Calero MD) Hypoxemia (Acute) Concussion (Acute) Nausea and vomiting (Acute) Atrial fibrillation with rapid ventricular response (Acute) Cardiac pacemaker in situ (Acute) CAD in [place] artery (Acute) Left bundle branch block (Acute) Hypothyroidism (Chronic) Hypertension (Chronic) Hyperlipidemia (Chronic) CAD (coronary artery disease) PMR (polymyalgia rheumatica) Obstructive sleep apnea (adult) (pediatric) Diabetes mellitus Anxiety Insomnia (Acute) Depression with anxiety (Chronic) GERD (gastroesophageal reflux disease) Medical History Anticoagulated Failure of outpatient treatment Hematoma of right thigh Contusion of right leg Fall Right leg pain Hypoxia PAF (paroxysmal atrial fibrillation) Acute hypoxic respiratory failure COVID-19 Atrial flutter with rapid ventricular response Low magnesium level Hypokalemia Atrial fibrillation/flutter Tachy-luis syndrome Depression Hypomagnesemia Bradycardia Encounter for examination following treatment at hospital H/O atrial fibrillation without current medication Abnormal thyroid function test Unsteady gait when walking Poor balance Decreased hearing of both ears Inflamed seborrheic keratosis Skin tag Abnormal skin growth Multiple pulmonary nodules determined by computed tomography of lung External hemorrhoids Iron deficiency anemia Nasal congestion Abnormal CT of the chest Multiple pulmonary nodules Lumbar radicular pain Periumbilic rebound abdominal tenderness Abnormal CT of the chest Neutropenia Thrombocytopenia Elevated liver enzymes Allergic rhinitis Arthritis Encounter for long-term (current) use of medications Osteopenia Nasal vestibulitis GIB (gastrointestinal bleeding) Anaplasmosis Infected lesion in nose Concussion Hemorrhoids History of coronary artery disease Surgical History History of esophagogastroduodenoscopy (EGD) 02/22/21 Dr. Pablo Mckay S/P colonoscopy 02/26/21 Dr. Pablo Mckay History of bilateral oophorectomy History of hernia surgery History of back surgery Hx of hysterectomy H/O cardiac catheterization Family History Father Hypertension Heart disease Mother Stroke Other Breast cancer Myocardial infarction No family history of adverse response to anesthesia No family history of bleeding disorder Denies family history of Ovarian cancer Prostate cancer Colorectal cancer Social History Smoking Status: Never smoker Second Hand Exposure: Yes; Do You Dip or Chew Tobacco: No; Hx Alcohol Use: No Hx Substance Use: No Preferred Language: Kyrgyz Communication Ability: Effective 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 Beliefs That Will Affect Care: None marital status: Current Living Situation: Spouse Current Living Situation Comment: Lives in [facility] with current occupational status: retired How many Children do You have: 3 Feels Safe at Home: Yes caffeine: Yes Dental Care, Regularly: Yes Physical Activity Frequency: 1-2 Times per Week Seatbelt Use: always Sunscreen Use: Yes Assistive Devices: CPAP and Walker Allergies Allergies Allergy/AdvReac Type Severity Reaction Status Date / Time citalopram [From Celexa] Allergy Unknown Unknown Verified 06/29/24 14:36 Sulfa (Sulfonamide Allergy Unknown UNKNOWN Verified 06/29/24 14:36 Antibiotics) albuterol AdvReac Intermediate racing Verified 06/29/24 14:36 heart Home Meds Home Medications Medication Instructions Recorded Confirmed nitroglycerin 0.4 mg sublingual 0.4 mg sublingual Q5M PRN Chest 07/26/19 10/29/24 tablet Pain psyllium husk 3.4 gram/5.4 gram 1 tbs PO DAILY PRN Constipation 03/10/20 10/29/24 oral powder (Metamucil) atorvastatin 20 mg tablet 20 mg PO HS 03/19/20 10/29/24 lorazepam 1 mg tablet 1 mg PO Q8H PRN Anxiety 03/21/20 10/29/24 hydrochlorothiazide 25 mg tablet 25 mg PO DAILY 06/01/20 10/29/24 cholecalciferol (vitamin D3) 25 2,000 unit PO QAM 01/04/21 10/29/24 mcg (1,000 unit) capsule multivitamin 1 tab PO QAM 01/04/21 10/29/24 apixaban 5 mg tablet (Eliquis) 5 mg PO BID 02/26/24 10/29/24 metformin 500 mg tablet,extended 500 mg PO QPM 02/26/24 10/29/24 release 24 hr trazodone 50 mg tablet 25 mg PO QPM PRN Sleep 02/26/24 10/29/24 empagliflozin 10 mg tablet 10 mg PO DAILY 06/29/24 10/29/24 (Jardiance) potassium chloride 20 mEq 20 meq PO BID 06/29/24 10/29/24 tablet,extended release(part/cryst) aspirin 81 mg tablet,delayed 81 mg PO DAILY 09/24/24 10/29/24 release prednisone 1 mg tablet 2 mg PO DAILY 09/24/24 10/29/24 prednisone 5 mg tablet 5 mg PO DAILY 09/24/24 10/29/24 sertraline 100 mg tablet 150 mg PO DAILY 09/24/24 10/29/24 Previous Rx's Medication Instructions Recorded blood sugar diagnostic (OneTouch #100 ea 01/08/21 Ultra Blue Test Strip) levothyroxine 50 mcg tablet 50 mcg PO DAILY #30 tabs 04/04/22 levalbuterol tartrate 45 2 puff inhalation Q4H PRN 09/27/24 mcg/actuation aerosol inhaler shortness of breath or wheezing 10 (Xopenex HFA) days #15 grams acetaminophen 500 mg tablet 1,000 mg (2 x 500 mg) PO TID #30 10/24/24 tabs oxycodone 5 mg tablet 5 mg PO Q6H PRN pain, severe #20 10/24/24 tabs pantoprazole 40 mg tablet,delayed 40 mg PO QAM #30 tabs 10/24/24 release metoprolol succinate 50 mg 50 mg PO BID #60 tabs 10/30/24 tablet,extended release 24 hr Results & Data (ED) Vital Signs Vital Signs - 24 hr 06/09/25 12:20 06/09/25 12:20 06/09/25 13:18 Temperature 36.7 C 36.7 C Temperature Source Oral Oral Pulse Rate 78 Pulse Rate [Apical] 77 61 Pulse Rhythm Regular Pulse Rhythm [Apical] Regular Pulse Strength Normal Pulse Strength [Apical] Normal Respiratory Rate 20 20 18 Respiratory Effort / Characteristics Non-Labored Spontaneous Non-Labored Spontaneous Non-Labored Spontaneous Respiratory Depth Normal Normal Normal Respiratory Pattern Regular Regular Blood Pressure 184/93 H Blood Pressure [Right Arm] 184/93 H 157/81 H Blood Pressure Mean 123 Blood Pressure Mean [Right Arm] 123 106 Blood Pressure Position [Right Arm] Lying Pulse Oximetry 98 97 98 Oxygen Delivery Method Room Air Room Air Room Air Oxygen Flow Rate Sepsis Recent Fever Within 48 Hours No Sepsis New/Unexplained Change in Mental Status No Sepsis Action Taken by Nursing No Action Required 06/09/25 14:04 06/09/25 14:09 06/09/25 15:00 Temperature Temperature Source Pulse Rate 67 Pulse Rate [Apical] 60 60 Pulse Rhythm Pulse Rhythm [Apical] Pulse Strength Pulse Strength [Apical] Respiratory Rate 36 H 25 H Respiratory Effort / Characteristics Respiratory Depth Respiratory Pattern Blood Pressure Blood Pressure [Right Arm] 130/79 130/70 Blood Pressure Mean Blood Pressure Mean [Right Arm] 96 90 Blood Pressure Position [Right Arm] Sitting Pulse Oximetry 99 97 Oxygen Delivery Method Nasal Cannula Nasal Cannula Oxygen Flow Rate 3 3 Sepsis Recent Fever Within 48 Hours Sepsis New/Unexplained Change in Mental Status Sepsis Action Taken by Nursing 06/09/25 16:00 Temperature Temperature Source Pulse Rate Pulse Rate [Apical] 60 Pulse Rhythm Pulse Rhythm [Apical] Regular Pulse Strength Pulse Strength [Apical] Normal Respiratory Rate 20 Respiratory Effort / Characteristics Non-Labored Spontaneous Respiratory Depth Normal Respiratory Pattern Regular Blood Pressure Blood Pressure [Right Arm] 137/79 Blood Pressure Mean Blood Pressure Mean [Right Arm] 98 Blood Pressure Position [Right Arm] Semi-fowlers Pulse Oximetry 97 Oxygen Delivery Method Nasal Cannula Oxygen Flow Rate 2 Sepsis Recent Fever Within 48 Hours Sepsis New/Unexplained Change in Mental Status Sepsis Action Taken by Nursing Laboratory Data 06/09/25 12:44 06/09/25 12:44 Lab Results 06/09/25 Range/Units 12:44 WBC 6.36 (4.8-10.8) K/ul RBC 4.04 L (4.20-5.40) M/uL Hgb 13.8 (12.0-16.0) g/dl Hct 39.9 (37.0-47.0) % MCV 98.8 (80.0-100.0) fL MCH 34.2 H (25.0-34.0) pg MCHC 34.6 (32.0-36.0) g/dL RDW Std Deviation 50.4 H (36.4-46.3) fL RDW Coeff of Vito 13.8 (11.5-14.5) % Plt Count 203 (130-400) K/uL MPV 12.3 (9.4-12.4) fL Immature Gran % (Auto) 0.3 % Neut % (Auto) 59.0 % Lymph % (Auto) 30.7 % [place] % (Auto) 8.2 % Eos % (Auto) 1.3 % Baso % (Auto) 0.5 % Neut # (Auto) 3.76 (1.40-6.50) K/uL Lymph # (Auto) 1.95 (1.20-3.40) K/uL [place] # (Auto) 0.52 (0.11-0.59) K/uL Eos # (Auto) 0.08 (0.00-0.50) K/uL Baso # (Auto) 0.03 (0.00-0.20) K/uL Immature Gran # (Auto) 0.02 (0.01-0.20) K/uL Absolute Nucleated RBC 0.02 (0.00-0.12) K/uL Nucleated RBC % (auto) 0.3 % PT 10.9 (9.0-12.0) Seconds INR 1.0 (0.9-1.1) APTT 28 (21-31) Seconds PTT Ratio 1.0 Sodium 139 (136-145) mmol/L Potassium 3.6 (3.5-5.1) mmol/L Chloride 104 (98-107) mmol/L Carbon Dioxide 28 (21-32) mmol/L Anion Gap 7 (3-11) BUN 21 (6-23) mg/dl Creatinine 0.77 (0.6-1.2) mg/dl Est Cr Clr Drug Dosing 72.3 ml/min eGFR 80.90 BUN/Creatinine Ratio 27.3 H (10-20) Glucose 113 H (70-99(Fasting)) mg/dl Calcium 9.8 (8.6-10.3) mg/dl Total Bilirubin 0.7 (0.2-1.0) mg/dl AST 18 (13-39) U/L ALT 18 (7-52) U/L Alkaline Phosphatase 63 (34-104) U/L Total Protein 7.1 (6.0-8.3) gm/dl Albumin 4.4 (3.4-5.0) gm/dl Globulin 2.7 (2.5-4.0) gm/dl Albumin/Globulin Ratio 1.6 (0.9-2) Lipase 22 (11-82) U/L Administered Medications Discontinued Medications Hydromorphone HCl (Hydromorphone Inj 0.5 Mg/0.5 Ml Syr) 0.5 mg IV NOW STA Stop: 06/09/25 14:37 Last Admin: 06/09/25 14:57 Dose: 0.5 mg Documented By: KRISTOPHRE Acetaminophen ([facility]) 1,000 mg in 100 mls @ 400 mls/hr IV NOW STA Stop: 06/09/25 14:25 Last Infusion: 06/09/25 14:31 Dose: Infused Documented By: Admin: 06/09/25 14:16 Dose: 400 mls/hr Documented By: KRISTOPHER Ioversol (Optiray 320 100ml) 90 ml IV ONCE ONE Stop: 06/09/25 15:33 Last Admin: 06/09/25 15:34 Dose: 90 ml Documented By: FELICITY Metoclopramide HCl (Metoclopramide Hcl Inj 5 Mg/Ml 2 Ml Vial) 10 mg IV NOW STA Stop: 06/09/25 14:37 Last Admin: 06/09/25 14:57 Dose: 10 mg Documented By: KRISTOPHER Ondansetron HCl (Ondansetron Inj 2 Mg/Ml 2 Ml Vial) Confirm Administered Dose 4 mg .ROUTE .[facility]-MED ONE Stop: 06/09/25 12:40 Last Admin: 06/09/25 12:43 Dose: 4 mg Documented By: NA Imaging Data Radiologist's Impression: Pelvis X-Ray 06/09/25 12:44 XR pelvis 1-2V routine CLINICAL HISTORY: Trauma pain COMPARISON: 10/21/2024 FINDINGS: No fractures or dislocations are visualized. IMPRESSION: No fractures identified. ACT 112: Negative or not required by law. Electronically signed by: Nathan Thacker M.D. 06/09/2025 2:[address] 06/09/25 12:45 CT SCAN OF THE CERVICAL SPINE CLINICAL HISTORY: Pain status post trauma COMPARISON STUDY: TECHNIQUE: CT scan of the cervical spine is performed from the skull base to the upper thoracic spine. Images are reviewed in the axial, sagittal, and coronal planes. IV contrast was not administered for this examination. A dose lowering technique was utilized adhering to the principles of ALARA. CT DOSE: FINDINGS: There is no evidence of significant prevertebral edema. There are multilevel degenerative changes present. No acute fractures or traumatic subluxations are visualized. Visualized portions lung apices reveal no evidence of pneumothorax. There are no mastoid effusions. IMPRESSION: 1. No acute cervical spine fracture or subluxation. 2. Multilevel degenerative change. ACT 112: Negative or not required by law. Electronically signed by: Nathan Thacker M.D. 06/09/2025 2:[address] 06/09/25 12:45 CT facial bones wo con CLINICAL HISTORY: 74 years-old Female presenting with Trauma, blood thinners. Acute facial trauma COMPARISON STUDY: Head CT 06/09/2025 TECHNIQUE: High-resolution CT scan of the facial bones is performed. Images are reviewed in the axial, sagittal, and coronal planes. IV contrast was not administered for this examination. A dose lowering technique was utilized adhering to the principles of ALARA. CT DOSE: 1937.44 mGy.cm FINDINGS: Streak artifact from dental amalgam hardware. Head CT dictated separately. Large left anterior frontal scalp hematoma measures up to 7 cm. Left periorbital and left cheek contusions are also noted with a lateral left cheek contusion measuring up to approximately 3 cm. Prior bilateral lens repair. No opaque foreign bodies identified. The imaged calvarium appears intact. Mastoid air cells are clear. Multilevel degenerative changes of the cervical spine. Paranasal sinuses are generally clear. There is mild cortical irregularity of the bilateral nasal bones without displacement. No acute displaced fracture identified. IMPRESSION: 1. Cortical irregularity of the nasal bones, suggestive of subtle age indeterminate fractures. Correlate with point tenderness. 2. Large left forehead and facial contusions. ACT 112: Negative or not required by law. The above report was generated using voice recognition software. It may contain grammatical, syntax or spelling errors. Electronically signed by: Domenic Shahid M.D. 06/09/2025 1:34 PM Hand X-Ray 06/09/25 12:45 XR hand LT min 3V routine CLINICAL HISTORY: trauma, pain COMPARISON: 07/22/2019 FINDINGS: There are scattered degenerative changes. There is a bone island fourth distal phalanx. No acute fracture or dislocation seen. IMPRESSION: No fracture seen. ACT 112: Negative or not required by law. Electronically signed by: Rick Harrington M.D. 06/09/2025 1:[address] 06/09/25 12:45 CT head/brain wo con CLINICAL HISTORY: Trauma, blood thinners. TECHNIQUE: Multiple axial CT images of the head were obtained without contrast. A dose lowering technique was utilized adhering to the principles of ALARA. CT DOSE: 1937 COMPARISON: 10/07/2024 FINDINGS: There is a 5 cm left frontal scalp hematoma. No underlying skull fracture seen. No intracranial hemorrhage seen. No mass effect, midline shift, or hydrocephalus. Paranasal sinuses and mastoid air cells are clear. IMPRESSION: 1. No acute intracranial finding. 2. Left frontal scalp hematoma. ACT 112: Negative or not required by law. The above report was generated using voice recognition software. It may contain grammatical, syntax or spelling errors. Electronically signed by: Rick Harrington M.D. 06/09/2025 1:23 PM Shoulder X-Ray 06/09/25 12:45 XR shoulder LT min 2V routine CLINICAL HISTORY: left shoulder pain, trauma COMPARISON: 07/22/2019 FINDINGS: There are mild degenerative changes. No fracture or dislocation. IMPRESSION: No fracture seen. ACT 112: Negative or not required by law. Electronically signed by: Rick Harrington M.D. 06/09/2025 1:[address] 06/09/25 14:36 CT SCAN OF THE CHEST WITH IV CONTRAST CLINICAL HISTORY: Trauma. Chest and shoulder pain. Patient on anticoagulants. COMPARISON STUDY: 07/01/2024 TECHNIQUE: Following the IV administration of 90 cc of Optiray 320, CT scan of the thorax was performed from the thoracic inlet to the upper abdomen. Images are reviewed in the axial, sagittal, and coronal planes. IV contrast was administered without complication. A dose lowering technique was utilized adhering to the principles of ALARA. CT DOSE: 741.88 mGy.cm FINDINGS: The visualized portions of the base the neck are unremarkable. There is an indwelling left subclavian dual-chamber central venous pacemaker. There are several mediastinal lymph nodes which remains the upper limits of normal in size. These demonstrate normal fatty anil and are unlikely to be pathologic. There is no pathologic hilar lymphadenopathy. There is no pathologic axillary lymphadenopathy. There is no evidence of abdominal aortic dilatation. No pneumothorax is visualized. There are no pleural effusions. There are persistent scattered groundglass and cystic subcentimeter pulmonary nodules. These remain similar. There are increasing groundglass dependent lower lobe pulmonary opacities, atelectatic versus infectious/inflammatory. There is minimal lower lobe cylindrical bronchiectasis. No acute fractures are visualized. IMPRESSION: 1. No evidence of acute intrathoracic injury. 2. Essentially stable multiple bilateral scattered groundglass and cystic/cavitary subcentimeter pulmonary nodules 3. No evidence of pathologic adenopathy 4. Increasing bilateral dependent groundglass pulmonary opacities, atelectatic versus infectious/inflammatory. ACT 112: Negative or not required by law. Electronically signed by: Nathan Thacker M.D. 06/09/2025 3:52 PM Discharge Plan Visit Data Chief Complaint: Fall ED Provider: Malgorzata Calero Discharge Problem: Concussion, Hypoxemia Patient Disposition: Admitted As Inpatient Condition: Fair Prescriptions Prescriptions: No Action (DME) OneTouch Ultra Blue Test Strip Strip See Rx Instructions .ROUTE .MEDSUPPLY Qty: 100 5RF Rx Instructions: Please test once in the morning and once throughout day nitroglycerin 0.4 mg tablet, sublingual 0.4 mg SL Q5M PRN (Reason: Chest Pain) Metamucil 3.4 gram/5.4 gram powder 1 tbs PO DAILY PRN (Reason: Constipation) cholecalciferol (vitamin D3) 25 mcg (1,000 unit) capsule 2,000 unit PO QAM multivitamin Tablet 1 tab PO QAM levothyroxine 50 mcg tablet 50 mcg PO DAILY Qty: 30 5RF Rx Instructions: DOSE CHANGE 04/04/22 Take 1.5 tablets every other day alternating with 1 tablet daily hydrochlorothiazide 25 mg tablet 25 mg PO DAILY Hold Instructions: Hold for 2 days and then resume Jardiance 10 mg tablet 10 mg PO DAILY atorvastatin 20 mg tablet 20 mg PO HS lorazepam 1 mg Tablet 1 mg PO Q8H PRN (Reason: Anxiety) metformin 500 mg tablet extended release 24 hr 500 mg PO QPM trazodone 50 mg tablet 25 mg PO QPM PRN (Reason: Sleep) Eliquis 5 mg tablet 5 mg PO BID potassium chloride 20 mEq tablet,ER particles/crystals 20 meq PO BID prednisone 5 mg tablet 5 mg PO DAILY prednisone 1 mg tablet 2 mg PO DAILY Rx Instructions: taper dose moves down to 6mg on tuesday 10/31 sertraline 100 mg tablet 150 mg PO DAILY aspirin 81 mg Tablet,Delayed Release (Dr/Ec) 81 mg PO DAILY levalbuterol tartrate [Xopenex HFA] 45 mcg/actuation Hfa Aerosol Inhaler 2 puff inhalation Q4H PRN (Reason: shortness of breath or wheezing) 10 Days Qty: 15 1RF metoprolol succinate 50 mg tablet extended release 24 hr 50 mg PO BID Qty: 60 0RF pantoprazole 40 mg Tablet,Delayed Release (Dr/Ec) 40 mg PO QAM Qty: 30 0RF oxycodone 5 mg Tablet 5 mg PO Q6H PRN (Reason: pain, severe) Qty: 20 0RF acetaminophen 500 mg tablet 1,000 mg PO TID Qty: 30 0RF Referrals Referrals: Dylan Barros MD [Primary Care Provider] -
[2025-06-09] MEDS: HYDROmorphone INJ 0.5 MG/0.5 ML SYR IV STA (14:57)
[2025-06-09] MEDS: METOCLOPRAMIDE HCL INJ 5 MG/ML 2 ML VIAL IV STA (14:57)
[2025-06-09] MEDS: OPTIRAY 320 100ml IV ONE (15:34)
--- NOTE | 2025-06-09 15:54 | CT Scan Report ---
CT SCAN OF THE CHEST WITH IV CONTRAST CLINICAL HISTORY: Trauma. Chest and shoulder pain. Patient on anticoagulants. COMPARISON STUDY: 07/01/2024 TECHNIQUE: Following the IV administration of 90 cc of Optiray 320, CT scan of the thorax was perform ed from the thoracic inlet to the upper abdomen. Images are reviewed in the axial, sagittal, and simran nal planes. IV contrast was administered without complication. A dose lowering technique was utilize d adhering to the principles of ALARA. CT DOSE: 741.88 mGy.cm FINDINGS: The visualized portions of the base the neck are unremarkable. There is an indwelling left subclavian dual-chamber central venous pacemaker. There are several mediastinal lymph nodes which remains the upper limits of normal in size. These dem onstrate normal fatty anil and are unlikely to be pathologic. There is no pathologic hilar lymphadeno chon. There is no pathologic axillary lymphadenopathy. There is no evidence of abdominal aortic dilatation. No pneumothorax is visualized. There are no pleural effusions. There are persistent scattered groundglass and cystic subcentimeter pulmonary nodules. These remain s imilar. There are increasing groundglass dependent lower lobe pulmonary opacities, atelectatic versus infectious/inflammatory. There is minimal lower lobe cylindrical bronchiectasis. No acute fractures are visualized. IMPRESSION: 1. No evidence of acute intrathoracic injury. 2. Essentially stable multiple bilateral scattered groundglass and cystic/cavitary subcentimeter pulm onary nodules 3. No evidence of pathologic adenopathy 4. Increasing bilateral dependent groundglass pulmonary opacities, atelectatic versus infectious/infl ammatory. ACT 112: Negative or not required by law. Electronically signed by: Nathan Thacker M.D. 06/09/2025 3:52 PM
[2025-06-09] MEDS ORDERED: POLYETHYLENE (MIRALAX) 17 GM PACK PO PRN (16:52)
--- NOTE | 2025-06-09 17:25 | History & Physical Report ---
Date of Service June 09, 2025 Assessment & Plan (1) Concussion: (2) Nausea and vomiting: (3) Atrial fibrillation with rapid ventricular response: (4) Cardiac pacemaker in situ: (5) Hypothyroidism: (6) CAD (coronary artery disease): (7) PMR (polymyalgia rheumatica): (8) Obstructive sleep apnea (adult) (pediatric): (9) Unsteady gait when walking: (10) Multiple pulmonary nodules determined by computed tomography of lung: (11) GERD (gastroesophageal reflux disease): Admission and Anticipated Discharge Date Admission Date: June 09, 2025 History of Present Illness Chief Complaint: -mechanical fall Primary Care Provider: Dylan Barros MD 74-year-old female with past medical history of left bundle branch block, diabetes type 2, hyperlipidemia, hypothyroidism, polymyalgia rheumatica, HFpEF, sick sinus syndrome, CAD, A-fib with pacemaker [facility] Last visit was in 10/2024 for nausea/vomiting from atrial fibrillation, admitted by this provider. In the ED, had full trauma workup, found to have possible nasal fractures, large scalp left side hematoma noted, admitted to medicine for further workup. Patient seen and examined at bedside. Patient doing ok today. States she was doing work in the garden, got stuck in the garden foliage, and tripped. No LOC, no dizziness or other prodrome. Per patient able to see out of left eye when left eyelid is lifted up, which is quite painful. Feeling nauseous, vomiting, and dizzy. No burning with urination, chest pain, SOB, other associated symptoms. No alcohol use, no drug use, no tobacco use, full code discussed with patient. Allergies Allergy/AdvReac Type Severity Reaction Status Date / Time citalopram [From Celexa] Allergy Unknown Unknown Verified 06/29/24 14:36 Sulfa (Sulfonamide Allergy Unknown UNKNOWN Verified 06/29/24 14:36 Antibiotics) albuterol AdvReac Intermediate racing Verified 06/29/24 14:36 heart Home Medications Medication Instructions Recorded Confirmed Type nitroglycerin 0.4 mg sublingual 0 mg sublingual Q5M PRN Chest Pain 07/26/19 06/09/25 History tablet psyllium husk 3.4 gram/5.4 gram 1 tbs PO DAILY PRN Constipation 03/10/20 06/09/25 History oral powder (Metamucil) atorvastatin 20 mg tablet 20 mg PO HS 03/19/20 06/09/25 History lorazepam 1 mg tablet 1 mg PO Q8H PRN Anxiety 03/21/20 06/09/25 History hydrochlorothiazide 25 mg tablet 25 mg PO DAILY 06/01/20 06/09/25 History cholecalciferol (vitamin D3) 25 2,000 unit PO QAM 01/04/21 06/09/25 History mcg (1,000 unit) capsule multivitamin 1 tab PO QAM 01/04/21 06/09/25 History blood sugar diagnostic (OneTouch #100 ea 01/08/21 10/21/24 Rx Ultra Blue Test Strip) apixaban 5 mg tablet (Eliquis) 5 mg PO BID 02/26/24 06/09/25 History metformin 500 mg tablet,extended 500 mg PO QPM 02/26/24 06/09/25 History release 24 hr trazodone 50 mg tablet 25 mg PO QPM PRN Sleep 02/26/24 06/09/25 History empagliflozin 10 mg tablet 10 mg PO DAILY 06/29/24 06/09/25 History (Jardiance) potassium chloride 20 mEq 20 meq PO BID 06/29/24 06/09/25 History tablet,extended release(part/cryst) aspirin 81 mg tablet,delayed 81 mg PO DAILY 09/24/24 06/09/25 History release prednisone 1 mg tablet 2 mg PO DAILY 09/24/24 06/09/25 History sertraline 100 mg tablet 150 mg PO DAILY 09/24/24 06/09/25 History levalbuterol tartrate 45 2 puff inhalation Q4H PRN 09/27/24 06/09/25 Rx mcg/actuation aerosol inhaler shortness of breath or wheezing 10 (Xopenex HFA) days #15 grams oxycodone 5 mg tablet 5 mg PO Q6H PRN pain, severe #20 10/24/24 06/09/25 Rx tabs acetaminophen 500 mg tablet 0 mg PO TID 06/09/25 06/09/25 History levothyroxine 50 mcg tablet 50 mcg PO UD 06/09/25 06/09/25 History metoprolol succinate 50 mg 0 mg PO BID 06/09/25 06/09/25 History tablet,extended release 24 hr pantoprazole 40 mg tablet,delayed 0 mg PO QAM 06/09/25 06/09/25 History release sotalol 80 mg tablet 80 mg PO BID 06/09/25 06/09/25 History Past Med/Surg History Problem List (Updated 06/09/25 @ 16:28 by Malgorzata Calero MD) Hypoxemia (Acute) Concussion (Acute) Nausea and vomiting (Acute) Atrial fibrillation with rapid ventricular response (Acute) Cardiac pacemaker in situ (Acute) CAD in [place] artery (Acute) Left bundle branch block (Acute) Hypothyroidism (Chronic) Hypertension (Chronic) Hyperlipidemia (Chronic) CAD (coronary artery disease) PMR (polymyalgia rheumatica) Obstructive sleep apnea (adult) (pediatric) Diabetes mellitus Anxiety Insomnia (Acute) Depression with anxiety (Chronic) GERD (gastroesophageal reflux disease) Medical History Anticoagulated Failure of outpatient treatment Hematoma of right thigh Contusion of right leg Fall Right leg pain Hypoxia PAF (paroxysmal atrial fibrillation) Acute hypoxic respiratory failure COVID-19 Atrial flutter with rapid ventricular response Low magnesium level Hypokalemia Atrial fibrillation/flutter Tachy-luis syndrome Depression Hypomagnesemia Bradycardia Encounter for examination following treatment at hospital H/O atrial fibrillation without current medication Abnormal thyroid function test Unsteady gait when walking Poor balance Decreased hearing of both ears Inflamed seborrheic keratosis Skin tag Abnormal skin growth Multiple pulmonary nodules determined by computed tomography of lung External hemorrhoids Iron deficiency anemia Nasal congestion Abnormal CT of the chest Multiple pulmonary nodules Lumbar radicular pain Periumbilic rebound abdominal tenderness Abnormal CT of the chest Neutropenia Thrombocytopenia Elevated liver enzymes Allergic rhinitis Arthritis Encounter for long-term (current) use of medications Osteopenia Nasal vestibulitis GIB (gastrointestinal bleeding) Anaplasmosis Infected lesion in nose Concussion Hemorrhoids History of coronary artery disease Surgical History History of esophagogastroduodenoscopy (EGD) 02/22/21 Dr. Pablo Mckay S/P colonoscopy 02/26/21 Dr. Pablo Mckay History of bilateral oophorectomy History of hernia surgery History of back surgery Hx of hysterectomy H/O cardiac catheterization Family History Father Hypertension Heart disease Mother Stroke Other Breast cancer Myocardial infarction No family history of adverse response to anesthesia No family history of bleeding disorder Denies family history of Ovarian cancer Prostate cancer Colorectal cancer Social History Smoking Status: Never smoker Second Hand Exposure: Yes; Do You Dip or Chew Tobacco: No; Hx Alcohol Use: No Hx Substance Use: No Preferred Language: Malaysian Communication Ability: Effective Manager Placement Required: No Beliefs That Will Affect Care: None marital status: Current Living Situation: Spouse Current Living Situation Comment: Lives in [facility] with current occupational status: retired How many Children do You have: 3 Feels Safe at Home: Yes Safety Concerns: Feels Safe At This Time caffeine: Yes Dental Care, Regularly: Yes Physical Activity Frequency: 1-2 Times per Week Seatbelt Use: always Sunscreen Use: Yes Assistive Devices: Cane Review of Systems Review of Systems: -negative unless listed above Physical Exam Physical Exam: Gen: A&O 3 NAD HEENT: left eye significant swelling/edema, surface cuts and bruises noted, able to see out of left eye when eyelid lifted up Neck: Supple, full range of motion, no observable masses, No meningeal sign. Lungs: No Respiratory distress. CV: RRR, no edema. Abdomen: Soft, nondistended, No rebound tenderness. MSK: No joint swelling, no redness. Skin: left hand eccymoses and swelling from fall Neuro: Normal Gait, Grossly intact. Psych: Appropriate for situation. Results & Data Results & Data Vital Signs (Past 12 Hours) Vital Signs Temp Pulse Pulse Resp BP BP Pulse Ox 06/09/25 16:00 60 20 137/79 97 06/09/25 15:00 60 25 H 130/70 97 06/09/25 14:09 60 36 H 130/79 99 06/09/25 14:04 67 06/09/25 13:18 61 18 157/81 H 98 06/09/25 12:20 36.7 C 77 20 184/93 H 97 06/09/25 12:20 36.7 C 78 20 184/93 H 98 O2 Del Method O2 Flow Rate 06/09/25 16:00 Nasal Cannula 2 06/09/25 15:00 Nasal Cannula 3 06/09/25 14:09 Nasal Cannula 3 06/09/25 14:04 06/09/25 13:18 Room Air 06/09/25 12:20 Room Air 06/09/25 12:20 Room Air Laboratory Results -personally reviewed, INR of 1, creatinine around baseline, hgb at baseline Medications Administered Acetaminophen (Acetaminophen 325 Mg Tab) 650 mg PO Q4H PRN PRN Reason: Pain or Fever Stop: 07/09/25 16:51 Last Admin: 06/09/25 18:49 Dose: 650 mg Documented By: KMO Code Status & VTE Plan Code Status -full code, discussed with patient VTE Prophylaxis Plan VTE Prophylaxis will be ordered: Yes Supervising Physician Co-Signing Physician Notes 74-year-old female with past medical history of left bundle branch block, diabetes type 2, hyperlipidemia, hypothyroidism, polymyalgia rheumatica, HFpEF, sick sinus syndrome, CAD, A-fib with pacemaker who presents for a mecahnical fall. #Mechanical Fall #Large Left Upper Facial Hematoma #Left Eyelid Contusion #Nasal Fracture -patient had mechanical fall by history, no prodrome, no symptoms prior, no LOC, remembers tripping -noted left eyelid contusion and hematoma confirmed by imaging along with nasal fracture -has nausea, vomiting, pain post fall, left hand ecchymoses noted as well Plan: -hold blood thinners for now, SCDs for now -start oxycodone q4hr prn for severe pain, on chronically at home -may need to double dose in acute setting -incentive spirometer ordered -OMFS consult, appreciate recs -wound care consult, appreciate recs #DM Type 2 -SSI ordered -hold metformin, jardiance #Atrial Fibrillation #Sick Sinus Syndrome #S/p Pacemaker Placement -continue metoprolol -hold eliquis, aspirin for now given signficant facial trauma #HTN #HLD -continue statin -continue thiazide #Polymyalgia Rheumatica -continue prednisone #Hypothyroidism -continue levothyroxine #Benzodiazepene Use #Chronic Pain Syndrome -continue ativan, oxycodone home medications I spent a total of 80 minutes in direct patient care, including [id number] time with the patient and/or family, reviewing medical records, ordering and reviewing diagnostic tests, and coordinating care with other healthcare providers. This time includes: history taking, physical examination, medical decision making, counseling, ECG interpretation, imaging interpretation, lab interpretation, orders, and education, excluding time spent in the performance of separately billed services. (5) Hypothyroidism Hypothyroidism type: acquired Qualified Code(s): E03.9 - Hypothyroidism, unspecified (6) CAD (coronary artery disease) Coronary Disease-Associated Artery/Lesion type: [place] artery [place] vs. transplanted heart: [place] heart Associated angina: without angina Qualified Code(s): I25.10 - Atherosclerotic heart disease of [place] coronary artery without angina pectoris
[2025-06-09] MEDS: ACETAMINOPHEN 325 MG TAB PO PRN (18:49)
[2025-06-09] MEDS ORDERED: DEXTROSE 50% 50 ML SYRINGE IV PRN (19:36)
[2025-06-09] MEDS ORDERED: GLUCOSE 40% GEL 15 GM TUBE PO PRN (19:36)
[2025-06-09] MEDS ORDERED: CARBOHYDRATES FOR HYPOGLYCEMIA PO PRN (19:36)
[2025-06-09] MEDS ORDERED: GLUCOSE 10 TAB/TUBE PO PRN (19:36)
[2025-06-09] MEDS ORDERED: GLUCAGON FOR INJ 1 MG VIAL SQ PRN (19:36)
[2025-06-09] MEDS: ONDANSETRON INJ 2 MG/ML 2 ML VIAL IV PRN (19:50)
[2025-06-09] MEDS: INSULIN ASPART PER UNIT CHARGE SC SCH (20:42)
[2025-06-09] MEDS: LACTATED RINGER'S 1,000 ML IV SCH (20:42)
[2025-06-09] MEDS: ATORVASTATIN 20 MG TAB PO SCH (22:49)
[2025-06-09] MEDS: PROMETHAZINE 6.25 MG/50.25 ML BAG IV PRN (22:49)
[2025-06-09] MEDS: METOPROLOL SUCC 50MG EXT REL TAB PO SCH (22:49)
[2025-06-09] MEDS: LORazepam 1 MG TAB PO PRN (22:49)
[2025-06-09] MEDS: SOTALOL HCL 80 MG TAB PO SCH (22:50)
[2025-06-10] MEDS: LEVOTHYROXINE SODIUM 50 MCG TABLET PO SCH (03:44)
[2025-06-10] MEDS: KETOROLAC TROMETHAMINE 15 MG/ML VIAL IV ONE (03:44)
[2025-06-10] MEDS: BACITRACIN/POLYMYXIN B SULFATE 90 APPLN/28.4 GM TUBE EXT SCH (05:00)
[2025-06-10 06:20] LABS: Hematocrit (blood only) 36.7 % (37.0-47.0); Hemoglobin 12.7 g/dl (12.0-16.0); Mean Corpuscular Hemoglobin 34.3 pg (25.0-34.0); Mean Corpuscular Volume 99.2 fL (80.0-100.0); Platelet Count 180 K/uL (130-400); RDW Standard Deviation 50.5 fL (36.4-46.3); Red Blood Count 3.70 M/uL (4.20-5.40); White Blood Count 7.11 K/ul (4.8-10.8)
[2025-06-10 06:39] LABS: Anion Gap 6.0 (3-11); Blood Urea Nitrogen 18.0 mg/dl (6-23); Calcium 9.3 mg/dl (8.6-10.3); Carbon Dioxide 31.0 mmol/L (21-32); Chloride 103.0 mmol/L (98-107); Creatinine Clr Calc Pharmacy 64.0 ml/min; Glucose 97.0 mg/dl (70-99(Fasting)); Potassium 3.6 mmol/L (3.5-5.1); Sodium 140.0 mmol/L (136-145)
[2025-06-10 06:46] LABS: INR 1.0 (0.9-1.1); Prothrombin Time 11.1 Seconds (9.0-12.0)
[2025-06-10 07:57] VITALS: RESP 18
[2025-06-10] MEDS: hydroCHLOROthiazide 25 MG TAB PO SCH (09:06)
[2025-06-10] MEDS: SERTRALINE HCL 50 MG TABLET PO SCH (09:06)
--- NOTE | 2025-06-10 10:24 | Hospitalist Progress Note ---
Date of Service June 10, 2025 Assessment & Plan (1) Concussion: (2) Nausea and vomiting: (3) Atrial fibrillation with rapid ventricular response: (4) Cardiac pacemaker in situ: (5) Hypothyroidism: (6) CAD (coronary artery disease): (7) PMR (polymyalgia rheumatica): (8) Obstructive sleep apnea (adult) (pediatric): (9) Unsteady gait when walking: (10) Multiple pulmonary nodules determined by computed tomography of lung: (11) GERD (gastroesophageal reflux disease): Plan 74-year-old female with past medical history of left bundle branch block, diabetes type 2, hyperlipidemia, hypothyroidism, polymyalgia rheumatica, HFpEF, sick sinus syndrome, CAD, A-fib with pacemaker who presents for a mecahnical fall. #Mechanical Fall #Large Left Upper Facial Hematoma #Left Eyelid Contusion #Nasal Fracture -patient had mechanical fall; no prodrome, no symptoms prior, no LOC, remembers tripping -noted left eyelid contusion and hematoma confirmed by imaging along with nasal fracture -has nausea, vomiting, pain post fall, left hand ecchymoses noted as well Plan: -Continue to hold anticoagulation. ICE to bruised area -Continue on oxycodone q4hr prn for severe pain, on chronically at home -incentive spirometer o -OMFS consult for the hematoma -wound care consult, appreciate recs #DM Type 2 -SSI -hold metformin, jardiance #Atrial Fibrillation #Sick Sinus Syndrome #S/p Pacemaker Placement -continue metoprolol -hold eliquis, aspirin for now given significant facial trauma #HTN #HLD -continue statin -continue thiazide #Polymyalgia Rheumatica -continue prednisone #Hypothyroidism -continue levothyroxine #Benzodiazepene Use #Chronic Pain Syndrome -continue ativan, oxycodone home medications Time spent evaluating patient, direct bedside care, chart review, placing orders, interpretation of diagnostic studies, discussion with consultants, patient, and family members, as well as other required patient management activities is 50 minutes Please note the above document was generated using voice recognition software. It may contain grammatical, syntax or spelling errors. Any formal questions or concerns about the content, text or information contained within the body of this dictation should be directly addressed to the provider for clarification Admission and Anticipated Discharge Date Admission Date: June 09, 2025 Subjective Patient seen and examined at bedside. She is sitting up on the bed; reports pain at the fracture site. No stridor. Review of Systems Review of Systems: All systems reviewed & are unremarkable except as noted in Subjective Physical Exam Physical Exam: Constitutional: WD/WN, vitals as above, NAD, sitting up in bed, pleasant, conversing easily Head: Left forehead and periorbital hematoma and bruises. Respiratory: normal respiratory effort, lungs clear to auscultation, no wheeze, rales, rhonchi. Normal insp/exp effort, no accessory muscle use Cardiovascular: RRR, no murmur, no edema Vessels: no JVD or carotid bruit Chest: normal inspection of chest Abdomen: normal bowel sounds, soft, nontender, no hepatosplenomegaly Musculoskeletal: Ecchymosis of the left hand Skin: no rashes, warm and dry normal turgor Neurologic: PERRL, EOMI, accommodation nl, no face palsy, no dysarthria CN's II- XI intact bilaterally and moves all extremities Psychiatric: A+Ox3, euthymic affect Results & Data Results & Data Vital Signs (Past 12 Hours) Vital Signs Temp Pulse Pulse Resp BP Pulse Ox O2 Del Method 06/10/25 07:53 36.8 C 67 18 123/76 94 Room Air 06/10/25 07:34 62 06/10/25 03:37 36.9 C 62 16 129/80 91 Room Air (5) Hypothyroidism Hypothyroidism type: acquired Qualified Code(s): E03.9 - Hypothyroidism, unspecified (6) CAD (coronary artery disease) Associated angina: without angina Coronary Disease-Associated Artery/Lesion type: [place] artery [place] vs. transplanted heart: [place] heart Qualified Code(s): I25.10 - Atherosclerotic heart disease of [place] coronary artery without angina pectoris
--- NOTE | 2025-06-10 13:56 | Oral/Maxillofacial Consult ---
Date of Consultation June 10, 2025 Assessment & Plan (1) Hematoma: (2) Fracture of nasal bone with routine healing: (3) Facial trauma: History of Present Illness Attending Physician: Travon Lazar MD History of Present Illness 74-year-old female with past medical history of left bundle branch block, diabetes type 2, hyperlipidemia, hypothyroidism, polymyalgia rheumatica, HFpEF, sick sinus syndrome, CAD, A-fib with pacemaker who presents for a mechanical fall. -patient had mechanical fall by history, no prodrome, no symptoms prior, no LOC, remembers tripping -noted left eyelid contusion and hematoma confirmed by imaging along with nasal fracture -has nausea, vomiting, pain post fall, left hand ecchymoses noted as well Plan: -hold blood thinners for now, SCDs for now -start oxycodone q4hr prn for severe pain, on chronically at home -may need to double dose in acute setting -incentive spirometer ordered -OMFS consult, appreciate recs -wound care consult, appreciate recs Oral Maxillofacial Consult I was asked to see Mrs Kim in the ER last night. She had a hematoma left forehead and left cheek/nose area. I reviewed the CT scan--no displaced nasal fracture which will not require any surgical treatment. I placed a pressure dressing on the face but it fell off at midnight. At 1 pm today I see no progression of the hematoma.There was a small persistent area on the nose that continues to bleed. Using silver nitrate I was able to control the bleeding. I would suggest holding the Eliquis until the hematoma starts to resolve. She can be discharged as per medicine as there is no surgical treatment needed. As for wound care washing the face, using ice and follow up with Dr Aguilar is all that is needed at this time. All of the wounds are very superficial and should heal without any sequela. Ángel has my card and will arrange follow up upon discharge OK for discharge as per OMS pending discharge criteria from medicine I would a pain medication and antibiotics upon discharge Please let me know if you have any questions. Thank Teo Aguilar DMD Oral Maxillofacial Surgery Allergies Allergy/AdvReac Type Severity Reaction Status Date / Time citalopram [From Celexa] Allergy Unknown Unknown Verified 06/29/24 14:36 Sulfa (Sulfonamide Allergy Unknown UNKNOWN Verified 06/29/24 14:36 Antibiotics) albuterol AdvReac Intermediate racing Verified 06/29/24 14:36 heart Home Medications Medication Instructions Recorded Confirmed Type nitroglycerin 0.4 mg sublingual 0 mg sublingual Q5M PRN Chest Pain 07/26/19 06/09/25 History tablet psyllium husk 3.4 gram/5.4 gram 1 tbs PO DAILY PRN Constipation 03/10/20 06/09/25 History oral powder (Metamucil) atorvastatin 20 mg tablet 20 mg PO HS 03/19/20 06/09/25 History lorazepam 1 mg tablet 1 mg PO Q8H PRN Anxiety 03/21/20 06/09/25 History hydrochlorothiazide 25 mg tablet 25 mg PO DAILY 06/01/20 06/09/25 History cholecalciferol (vitamin D3) 25 2,000 unit PO QAM 01/04/21 06/09/25 History mcg (1,000 unit) capsule multivitamin 1 tab PO QAM 01/04/21 06/09/25 History blood sugar diagnostic (OneTouch #100 ea 01/08/21 10/21/24 Rx Ultra Blue Test Strip) apixaban 5 mg tablet (Eliquis) 5 mg PO BID 02/26/24 06/09/25 History metformin 500 mg tablet,extended 500 mg PO QPM 02/26/24 06/09/25 History release 24 hr trazodone 50 mg tablet 25 mg PO QPM PRN Sleep 02/26/24 06/09/25 History empagliflozin 10 mg tablet 10 mg PO DAILY 06/29/24 06/09/25 History (Jardiance) potassium chloride 20 mEq 20 meq PO BID 06/29/24 06/09/25 History tablet,extended release(part/cryst) aspirin 81 mg tablet,delayed 81 mg PO DAILY 09/24/24 06/09/25 History release prednisone 1 mg tablet 2 mg PO DAILY 09/24/24 06/09/25 History sertraline 100 mg tablet 150 mg PO DAILY 09/24/24 06/09/25 History levalbuterol tartrate 45 2 puff inhalation Q4H PRN 09/27/24 06/09/25 Rx mcg/actuation aerosol inhaler shortness of breath or wheezing 10 (Xopenex HFA) days #15 grams acetaminophen 500 mg tablet 0 mg PO TID 06/09/25 06/09/25 History levothyroxine 50 mcg tablet 50 mcg PO UD 06/09/25 06/09/25 History pantoprazole 40 mg tablet,delayed 0 mg PO QAM 06/09/25 06/09/25 History release sotalol 80 mg tablet 80 mg PO BID 06/09/25 06/09/25 History amoxicillin 875 mg-potassium 1 tab PO BIDM 5 days #10 tabs 06/11/25 Rx clavulanate 125 mg tablet oxycodone 5 mg tablet 5 mg PO Q6H PRN pain, severe #15 06/11/25 Rx tabs Patient History Medical History Anticoagulated Failure of outpatient treatment Hematoma of right thigh Contusion of right leg Fall Right leg pain Hypoxia PAF (paroxysmal atrial fibrillation) Acute hypoxic respiratory failure COVID-19 Atrial flutter with rapid ventricular response Low magnesium level Hypokalemia Atrial fibrillation/flutter Tachy-luis syndrome Depression Hypomagnesemia Bradycardia Encounter for examination following treatment at hospital H/O atrial fibrillation without current medication Abnormal thyroid function test Unsteady gait when walking Poor balance Decreased hearing of both ears Inflamed seborrheic keratosis Skin tag Abnormal skin growth Multiple pulmonary nodules determined by computed tomography of lung External hemorrhoids Iron deficiency anemia Nasal congestion Abnormal CT of the chest Multiple pulmonary nodules Lumbar radicular pain Periumbilic rebound abdominal tenderness Abnormal CT of the chest Neutropenia Thrombocytopenia Elevated liver enzymes Allergic rhinitis Arthritis Encounter for long-term (current) use of medications Osteopenia Nasal vestibulitis GIB (gastrointestinal bleeding) Anaplasmosis Infected lesion in nose Concussion Hemorrhoids History of coronary artery disease Surgical History History of esophagogastroduodenoscopy (EGD) 02/22/21 Dr. Pablo Mckay S/P colonoscopy 02/26/21 Dr. Pablo Mckay History of bilateral oophorectomy History of hernia surgery History of back surgery Hx of hysterectomy H/O cardiac catheterization Family History Father Hypertension Heart disease Mother Stroke Other Breast cancer Myocardial infarction No family history of adverse response to anesthesia No family history of bleeding disorder Denies family history of Ovarian cancer Prostate cancer Colorectal cancer Social History Smoking Status: Never smoker Second Hand Exposure: Yes; Do You Dip or Chew Tobacco: No; Hx Alcohol Use: No Hx Substance Use: No Preferred Language: Portuguese Communication Ability: Effective Cert Occupational Therapy Asst Required: No Beliefs That Will Affect Care: None marital status: Current Living Situation: Spouse Current Living Situation Comment: Lives in [facility] with current occupational status: retired How many Children do You have: 3 Feels Safe at Home: Yes Safety Concerns: Feels Safe At This Time caffeine: Yes Dental Care, Regularly: Yes Physical Activity Frequency: 1-2 Times per Week Seatbelt Use: always Sunscreen Use: Yes Assistive Devices: Cane and CPAP Results & Data Vital Signs (Past 12 Hours) Vital Signs Temp Pulse Pulse Resp BP BP Pulse Ox 06/10/25 11:25 36.4 C L 58 L 18 122/79 93 06/10/25 07:53 36.8 C 67 18 123/76 94 06/10/25 07:34 62 06/10/25 03:37 36.9 C 62 16 129/80 91 O2 Del Method 06/10/25 11:25 Room Air 06/10/25 07:53 Room Air 06/10/25 07:34 06/10/25 03:37 Room Air PG Care Time/CCT Total # of Minutes Spent Total Time Spent with Patient: Total time spent is greater than 50% in coordination of care (as documented) at patient's floor/unit and/or counseling patient: Coding Level of Care Code 19806 OP VST NEW MOD 45 MIN Diagnoses Hematoma T14.8XXA Fracture of nasal bone with routine healing S02.2XXD Facial trauma S09.93XA
[2025-06-10] MEDS: SILVER NITR/POTASSIUM NITRATE APPLICATOR ONE (15:54)
[2025-06-10] MEDS: AMOXICILLIN/CLAVULANATE 875 MG TAB PO SCH (18:05)
[2025-06-11] MEDS: LEVOTHYROXINE SODIUM 75 MCG TABLET PO SCH (06:07)
[2025-06-11 08:10] LABS: Hematocrit (blood only) 37.5 % (37.0-47.0); Hemoglobin 12.7 g/dl (12.0-16.0); Mean Corpuscular Hemoglobin 33.9 pg (25.0-34.0); Mean Corpuscular Volume 100.0 fL (80.0-100.0); Platelet Count 165 K/uL (130-400); RDW Standard Deviation 51.2 fL (36.4-46.3); Red Blood Count 3.75 M/uL (4.20-5.40); White Blood Count 5.03 K/ul (4.8-10.8)
[2025-06-11 08:45] LABS: Anion Gap 5.0 (3-11); Blood Urea Nitrogen 20.0 mg/dl (6-23); Calcium 8.9 mg/dl (8.6-10.3); Carbon Dioxide 33.0 mmol/L (21-32); Chloride 103.0 mmol/L (98-107); Creatinine Clr Calc Pharmacy 67.5 ml/min; Glucose 110.0 mg/dl (70-99(Fasting)); Potassium 3.4 mmol/L (3.5-5.1); Sodium 141.0 mmol/L (136-145)
[2025-06-11] MEDS: POTASSIUM CHLORIDE CRTAB 20 MEQ TABCR PO STA (10:44)
--- NOTE | 2025-06-11 10:57 | Discharge Summary ---
Date of Service June 11, 2025 Admission HPI Per Admitting Provider 74-year-old female with past medical history of left bundle branch block, diabetes type 2, hyperlipidemia, hypothyroidism, polymyalgia rheumatica, HFpEF, sick sinus syndrome, CAD, A-fib with pacemaker who presents for a mecahnical fall. Last visit was in 10/2024 for nausea/vomiting from atrial fibrillation, admitted by this provider. In the ED, had full trauma workup, found to have possible nasal fractures, large scalp left side hematoma noted, admitted to medicine for further workup. Patient seen and examined at bedside. Patient doing ok today. States she was doing work in the garden, got stuck in the garden foliage, and tripped. No LOC, no dizziness or other prodrome. Per patient able to see out of left eye when left eyelid is lifted up, which is quite painful. Feeling nauseous, vomiting, and dizzy. No burning with urination, chest pain, SOB, other associated symptoms. No alcohol use, no drug use, no tobacco use, full code discussed with patient. Admission Exam Per Admitting Provider Gen: A&O 3 NAD HEENT: left eye significant swelling/edema, surface cuts and bruises noted, able to see out of left eye when eyelid lifted up Neck: Supple, full range of motion, no observable masses, No meningeal sign. Lungs: No Respiratory distress. CV: RRR, no edema. Abdomen: Soft, nondistended, No rebound tenderness. MSK: No joint swelling, no redness. Skin: left hand eccymoses and swelling from fall Neuro: Normal Gait, Grossly intact. Psych: Appropriate for situation. Principal Diagnosis #Mechanical Fall #Large Left Upper Facial Hematoma #Left Eyelid Contusion #Nasal Fracture Discharge Exam Constitutional: WD/WN, vitals as above, NAD, sitting up in bed, pleasant, conversing easily Head: Left forehead and periorbital hematoma and bruises. Respiratory: normal respiratory effort, lungs clear to auscultation, no wheeze, rales, rhonchi. Normal insp/exp effort, no accessory muscle use Cardiovascular: RRR, no murmur, no edema Vessels: no JVD or carotid bruit Chest: normal inspection of chest Abdomen: normal bowel sounds, soft, nontender, no hepatosplenomegaly Musculoskeletal: Ecchymosis of the left hand Skin: no rashes, warm and dry normal turgor Neurologic: PERRL, EOMI, accommodation nl, no face palsy, no dysarthria CN's II- XI intact bilaterally and moves all extremities Psychiatric: A+Ox3, euthymic affect Discharge Data Allergies Allergy/AdvReac Type Severity Reaction Status Date / Time citalopram [From Celexa] Allergy Unknown Unknown Verified 06/29/24 14:36 Sulfa (Sulfonamide Allergy Unknown UNKNOWN Verified 06/29/24 14:36 Antibiotics) albuterol AdvReac Intermediate racing Verified 06/29/24 14:36 heart Consultations 06/09/25 16:22 ED Decision to Admit Stat 06/09/25 17:35 Consult Plastic Surgery Routine Ordered Studies 06/09/25 12:45 CT cervical spine wo con Stat CT facial bones wo con Stat CT head/brain wo con Stat 06/09/25 14:36 CT chest diagnostic w con Stat 06/11/25 09:56 CT hand LT wo con Urgent Hospital Course (1) Concussion: (2) Nausea and vomiting: (3) Atrial fibrillation with rapid ventricular response: (4) Cardiac pacemaker in situ: (5) Hypothyroidism: (6) CAD (coronary artery disease): (7) PMR (polymyalgia rheumatica): (8) Obstructive sleep apnea (adult) (pediatric): (9) Unsteady gait when walking: (10) Multiple pulmonary nodules determined by computed tomography of lung: (11) GERD (gastroesophageal reflux disease): Plan 74-year-old female with past medical history of left bundle branch block, diabetes type 2, hyperlipidemia, hypothyroidism, polymyalgia rheumatica, HFpEF, sick sinus syndrome, CAD, A-fib with pacemaker who presents for a mechanical fall. #Mechanical Fall #Large Left Upper Facial Hematoma #Left Eyelid Contusion #Nasal Fracture Patient had mechanical fall; no prodrome, no symptoms prior, no LOC, remembers tripping Noted left eyelid contusion and hematoma confirmed by imaging along with nasal fracture Evaluated by veneer clipper helper-no indications for surgery. silver nitrate used to control the bleeding on the nasal bridge. Patient pain was well-controlled with medication; her Eliquis and aspirin were kept on hold as per recommendation by oral surgery until the hematoma started to resolve. Patient to follow-up with primary care doctor when discussed regarding resumption of Eliquis and aspirin. She was also prescribed prophylactic antibiotic. Patient discharged home. Please note the above document was generated using voice recognition software. It may contain grammatical, syntax or spelling errors. Any formal questions or concerns about the content, text or information contained within the body of this dictation should be directly addressed to the provider for clarification Total Time Total Time Spent Total Time Spent (In Minutes): 45 Total Time Includes: Examination of the Patient, Discharge Planning, Medication Reconciliation, Communication With Other Providers and Other Discharge Plan Discharge Items Patient Disposition: Home - Self-Care Reason For Visit: CONCUSSION Discharge Diagnosis: #Mechanical Fall #Large Left Upper Facial Hematoma #Left Eyelid Contusion #Nasal Fracture Condition on Discharge: Fair Activity: Resume your previous activity Non-emergency contact: Primary Care Provider Call non-emergency contact if: you have any medication questions and your symptoms worsen Follow-up/Referrals: Dylan Barros MD [Primary Care Provider] - Teo Aguilar DMD [Physician] - Diet: Regular Addtl Attending Provider Instructions: You were admitted to the hospital after a fall. You are found to have hematoma on left side of your forehead and facial contusion. Please continue to ice the area. Your blood thinner Eliquis and aspirin is currently on hold; please follow-up with your primary care doctor to resume them after the swelling has improved. An appointment will be set up for you. You are also prescribed Augmentin to be taken for 5 more days to complete antibiotic course. You are prescribed oxycodone to be taken for severe pain. You can take [id number] extra strength Tylenol up to 4 times a day for pain. Pending Studies at Discharge: No Stand-Alone Forms: My [facility] [employer], Smoking Cessation Medications and DC Order Prescriptions: New amoxicillin-pot clavulanate 875-125 mg Tablet 1 tab PO BIDM 5 Days Qty: 10 0RF Continued (DME) OneTouch Ultra Blue Test Strip Strip See Rx Instructions .ROUTE .MEDSUPPLY Qty: 100 5RF Rx Instructions: Please test once in the morning and once throughout day nitroglycerin 0.4 mg tablet, sublingual 0 mg SL Q5M PRN (Reason: Chest Pain) Patient Comments: 06/09- no fill history unable to verify Metamucil 3.4 gram/5.4 gram powder 1 tbs PO DAILY PRN (Reason: Constipation) Patient Comments: 06/09- otc unable to verify cholecalciferol (vitamin D3) 25 mcg (1,000 unit) capsule 2,000 unit PO QAM Patient Comments: 06/09- otc unable to verify multivitamin Tablet 1 tab PO QAM Patient Comments: 06/09- otc unable to verify hydrochlorothiazide 25 mg tablet 25 mg PO DAILY Hold Instructions: Hold for 2 days and then resume Jardiance 10 mg tablet 10 mg PO DAILY atorvastatin 20 mg tablet 20 mg PO HS lorazepam 1 mg Tablet 1 mg PO Q8H PRN (Reason: Anxiety) Patient Comments: last filled 10/04/24 10 day supply #30 metformin 500 mg tablet extended release 24 hr 500 mg PO QPM trazodone 50 mg tablet 25 mg PO QPM PRN (Reason: Sleep) potassium chloride 20 mEq tablet,ER particles/crystals 20 meq PO BID prednisone 1 mg tablet 2 mg PO DAILY Rx Instructions: taper dose moves down to 6mg on tuesday 10/31 sertraline 100 mg tablet 150 mg PO DAILY levalbuterol tartrate [Xopenex HFA] 45 mcg/actuation Hfa Aerosol Inhaler 2 puff inhalation Q4H PRN (Reason: shortness of breath or wheezing) 10 Days Qty: 15 1RF Patient Comments: last filled 09/27/24 17 day supply sotalol 80 mg tablet 80 mg PO BID Rx Instructions: can take extra tab as needed for tachycardia acetaminophen 500 mg tablet 0 mg PO TID Patient Comments: 06/09- otc unable to verify levothyroxine 50 mcg tablet 50 mcg PO UD Rx Instructions: Take 1.5 tablets every other day alternating with 1 tablet daily pantoprazole 40 mg tablet,delayed release (DR/EC) 0 mg PO QAM Patient Comments: Last filled 10/24/24 30 day supply #30 oxycodone 5 mg Tablet 5 mg PO Q6H PRN (Reason: pain, severe) Qty: 15 0RF Held Eliquis 5 mg tablet 5 mg PO BID Hold Instructions: Resume on 06/15/25. until you see your PCP aspirin 81 mg Tablet,Delayed Release (Dr/Ec) 81 mg PO DAILY Hold Instructions: Resume on 06/15/25. until you see your PCP Patient Comments: 06/09- otc unable to verify Admission Data Admit Date/Time: 06/09/25 16:25 Attending Provider: Travon Lazar Admit Provider: Momo Thomas Primary Care Provider: Dylan Barros Other Providers: Momo Thomas; Teo Aguilar
--- NOTE | 2025-06-11 12:31 | CT Scan Report ---
Clinical history: Evaluate for fractures Technique: Axial computed tomography images were obtained of the left hand without intravenous contrast. Sagittal and coronal reconstructions were obtained Findings: There is an acute mildly displaced fracture of the radial aspect of the base of the fifth metacarpal. No subluxation or dislocation is seen. There is osteoarthritis of the thumb carpometacarpal interphalangeal, and metacarpophalangeal joints, and the distal interphalangeal joints of the fingers. No focal osseous lesion is evident The visualized musculature appears unremarkable. There is subcutaneous edema of the dorsum of the hand. No definite soft tissue mass or focal fluid collection is seen. No foreign body is evident Impression: 1. Fracture of the base of the left fifth metacarpal 2. Osteoarthritis Electronically signed by Raz Velazquez 06-11-2025 12:30 PM
--- NOTE | 2025-06-11 13:09 | Hospitalist Progress Note ---
Date of Service June 11, 2025 Assessment & Plan (1) Concussion: (2) Nausea and vomiting: (3) Atrial fibrillation with rapid ventricular response: (4) Cardiac pacemaker in situ: (5) Hypothyroidism: (6) CAD (coronary artery disease): (7) PMR (polymyalgia rheumatica): (8) Obstructive sleep apnea (adult) (pediatric): (9) Unsteady gait when walking: (10) Multiple pulmonary nodules determined by computed tomography of lung: (11) GERD (gastroesophageal reflux disease): Plan 74-year-old female with past medical history of left bundle branch block, diabetes type 2, hyperlipidemia, hypothyroidism, polymyalgia rheumatica, HFpEF, sick sinus syndrome, CAD, A-fib with pacemaker who presents for a mechanical fall. #Mechanical Fall #Large Left Upper Facial Hematoma #Left Eyelid Contusion #Nasal Fracture Acute fracture of base of left fifth metacarpal Patient had mechanical fall; no prodrome, no symptoms prior, no LOC, remembers tripping Noted left eyelid contusion and hematoma confirmed by imaging along with nasal fracture Evaluated by gastroenterology physician-no indications for surgery. silver nitrate used to control the bleeding on the nasal bridge. X-ray of the left hand did not show any fractures; CT was done to rule out occult fracture; found to have fracture of left fifth metacarpal. Will get orthopedic evaluation for the left fifth metacarpal; discharge currently on hold until orthopedic evaluation the patient Continue pain control Continue ice on affected area #DM Type 2 -SSI -hold metformin, jardiance #Atrial Fibrillation #Sick Sinus Syndrome #S/p Pacemaker Placement -continue metoprolol -hold eliquis, aspirin for now until hematoma resolves #HTN #HLD -continue statin -continue thiazide #Polymyalgia Rheumatica -continue prednisone #Hypothyroidism -continue levothyroxine Time spent evaluating patient, direct bedside care, chart review, placing orders, interpretation of diagnostic studies, discussion with consultants, patient, and family members, as well as other required patient management activities is 50 minutes Please note the above document was generated using voice recognition software. It may contain grammatical, syntax or spelling errors. Any formal questions or concerns about the content, text or information contained within the body of thi s dictation should be directly addressed to the provider for clarification Admission and Anticipated Discharge Date Admission Date: June 09, 2025 Subjective patient seen and examined at bedside. She reports the overall swelling has slightly improved compared to previous days. However, her pain in her left hand continues to be there on minimal movement. Review of Systems Review of Systems: All systems reviewed & are unremarkable except as noted in Subjective Physical Exam Physical Exam: Constitutional: WD/WN, vitals as above, NAD, sitting up in bed, pleasant, conversing easily Head: Left forehead and periorbital hematoma and bruises. Respiratory: normal respiratory effort, lungs clear to auscultation, no wheeze, rales, rhonchi. Normal insp/exp effort, no accessory muscle use Cardiovascular: RRR, no murmur, no edema Vessels: no JVD or carotid bruit Chest: normal inspection of chest Abdomen: normal bowel sounds, soft, nontender, no hepatosplenomegaly Musculoskeletal: Ecchymosis of the left hand; Tenderness on metatarsal aspect of fifth finger Skin: no rashes, warm and dry normal turgor Neurologic: PERRL, EOMI, accommodation nl, no face palsy, no dysarthria CN's II- XI intact bilaterally and moves all extremities Psychiatric: A+Ox3, euthymic affect Results & Data Results & Data Vital Signs (Past 12 Hours) Vital Signs Temp Pulse Pulse Resp BP Pulse Ox O2 Del Method 06/11/25 09:00 Room Air 06/11/25 09:00 68 06/11/25 07:40 36.6 C 60 18 126/84 93 Room Air 06/11/25 03:29 36.5 C 63 18 128/79 94 Room Air (5) Hypothyroidism Hypothyroidism type: acquired Qualified Code(s): E03.9 - Hypothyroidism, unspecified (6) CAD (coronary artery disease) Coronary Disease-Associated Artery/Lesion type: [place] artery [place] vs. transplanted heart: [place] heart Associated angina: without angina Qualified C ode(s): I25.10 - Atherosclerotic heart disease of [place] coronary artery without angina pectoris
--- NOTE | 2025-06-11 14:33 | Orthopedic Consultation ---
Date of Service June 11, 2025 Assessment & Plan (1) Fracture of fifth metacarpal bone of left hand: Assessment: Fracture of the fifth metacarpal bone the left hand. Plan: I had a long discussion today with patient about her left hand pathology. Will my time for patient ask any questions and concerns. All question concerns were answered the patient satisfaction. This point time, she does have a mildly displaced fracture of her base of the fifth metacarpal of the left hand found on CT. I did discuss with her today that this can be treated nonoperatively. I did get her placed in a ulnar gutter splint. She will remain in this and remain nonweightbearing to the left upper extremity. Hopefully when she follows up. In a week or 2 as an outpatient, we can switch her to a Velcro wrist splint at that time. Medical management per primary. From orthopedic standpoint, she would be cleared for discharge once medically stable. Nonweightbearing left upper extremity. Remain in splint until follow-up. Splint instructions discussed with patient with clear understanding. Will follow-up patient from afar until she is seen as an outpatient. Please reach out to [facility] orthopedics if patient situation is to change. History of Present Illness Reason for Consultation: . Left fifth metacarpal base fracture Requesting Physician: . Attending Physician: Travon Lazar MD . Patient is a 74-year-old female who presents to the emergency department back on June 09, 2025 after a mechanical fall. She had a full trauma workup at that time which showed a possible nasal fracture, large scalp left side hematoma. She notes that she was doing gardening whenever she tripped and fell. Ever s randy that point, she always had a little bit of left hand pain. She did have a hand x-ray done that showed no obvious deformities. They then did a CT scan that showed a mildly displaced fracture of the radial aspect of the base of the fifth metacarpal. We are then asked to see her on consultation. She notes that her hand is hurting right around the ulnar aspect of her left hand. She really notes that it is a lot of discomfort when she uses it. She denies any proximal extremity pain, numbness/ting, paresthesias. She denies any other concerns today. Allergies Allergy/AdvReac Type Severity Reaction Status Date / Time citalopram [From Celexa] Allergy Unknown Unknown Verified 06/29/24 14:36 Sulfa (Sulfonamide Allergy Unknown UNKNOWN Verified 06/29/24 14:36 Antibiotics) albuterol AdvReac Intermediate racing Verified 06/29/24 14:36 heart Home Medications Medication Instructions Recorded Confirmed Type nitroglycerin 0.4 mg sublingual 0 mg sublingual Q5M PRN Chest Pain 07/26/19 06/09/25 History tablet psyllium husk 3.4 gram/5.4 gram 1 tbs PO DAILY PRN Constipation 03/10/20 06/09/25 History oral powder (Metamucil) atorvastatin 20 mg tablet 20 mg PO HS 03/19/20 06/09/25 History lorazepam 1 mg tablet 1 mg PO Q8H PRN Anxiety 03/21/20 06/09/25 History hydrochlorothiazide 25 mg tablet 25 mg PO DAILY 06/01/20 06/09/25 History cholecalciferol (vitamin D3) 25 2,000 unit PO QAM 01/04/21 06/09/25 History mcg (1,000 unit) capsule multivitamin 1 tab PO QAM 01/04/21 06/09/25 History blood sugar diagnostic (OneTouch #100 ea 01/08/21 10/21/24 Rx Ultra Blue Test Strip) apixaban 5 mg tablet (Eliquis) 5 mg PO BID 02/26/24 06/09/25 History metformin 500 mg tablet,extended 500 mg PO QPM 02/26/24 06/09/25 History release 24 hr trazodone 50 mg tablet 25 mg PO QPM PRN Sleep 02/26/24 06/09/25 History empagliflozin 10 mg tablet 10 mg PO DAILY 06/29/24 06/09/25 History (Jardiance) potassium chloride 20 mEq 20 meq PO BID 06/29/24 06/09/25 History tablet,extended release(part/cryst) aspirin 81 mg tablet,delayed 81 mg PO DAILY 09/24/24 06/09/25 History release prednisone 1 mg tablet 2 mg PO DAILY 09/24/24 06/09/25 History sertraline 100 mg tablet 150 mg PO DAILY 09/24/24 06/09/25 History levalbuterol tartrate 45 2 puff inhalation Q4H PRN 09/27/24 06/09/25 Rx mcg/actuation aerosol inhaler shortness of breath or wheezing 10 (Xopenex HFA) days #15 grams acetaminophen 500 mg tablet 0 mg PO TID 06/09/25 06/09/25 History levothyroxine 50 mcg tablet 50 mcg PO UD 06/09/25 06/09/25 History pantoprazole 40 mg tablet,delayed 0 mg PO QAM 06/09/25 06/09/25 History release sotalol 80 mg tablet 80 mg PO BID 06/09/25 06/09/25 History amoxicillin 875 mg-potassium 1 tab PO BIDM 5 days #10 tabs 06/11/25 Rx clavulanate 125 mg tablet oxycodone 5 mg tablet 5 mg PO Q6H PRN pain, severe #15 06/11/25 Rx tabs Past Med/Surg History Problem List (Updated 06/11/25 @ 14:30 by Domenic García PA-C) Fracture of fifth metacarpal bone of left hand Facial trauma Fracture of nasal bone with routine healing Hematoma Hypoxemia (Acute) Concussion (Acute) Nausea and vomiting (Acute) Atrial fibrillation with rapid ventricular response (Acute) Cardiac pacemaker in situ (Acute) CAD in [place] artery (Acute) Left bundle branch block (Acute) Hypothyroidism (Chronic) Hypertension (Chronic) Hyperlipidemia (Chronic) CAD (coronary artery disease) PMR (polymyalgia rheumatica) Obstructive sleep apnea (adult) (pediatric) Diabetes mellitus Anxiety Insomnia (Acute) Depression with anxiety (Chronic) GERD (gastroesophageal reflux disease) Medical History Anticoagulated Failure of outpatient treatment Hematoma of right thigh Contusion of right leg Fall Right leg pain Hypoxia PAF (paroxysmal atrial fibrillation) Acute hypoxic respiratory failure COVID-19 Atrial flutter with rapid ventricular response Low magnesium level Hypokalemia Atrial fibrillation/flutter Tachy-luis syndrome Depression Hypomagnesemia Bradycardia Encounter for examination following treatment at hospital H/O atrial fibrillation without current medication Abnormal thyroid function test Unsteady gait when walking Poor balance Decreased hearing of both ears Inflamed seborrheic keratosis Skin tag Abnormal skin growth Multiple pulmonary nodules determined by computed tomography of lung External hemorrhoids Iron deficiency anemia Nasal congestion Abnormal CT of the chest Multiple pulmonary nodules Lumbar radicular pain Periumbilic rebound abdominal tenderness Abnormal CT of the chest Neutropenia Thrombocytopenia Elevated liver enzymes Allergic rhinitis Arthritis Encounter for long-term (current) use of medications Osteopenia Nasal vestibulitis GIB (gastrointestinal bleeding) Anaplasmosis Infected lesion in nose Concussion Hemorrhoids History of coronary artery disease Surgical History History of esophagogastroduodenoscopy (EGD) 02/22/21 Dr. Pablo Mckay S/P colonoscopy 02/26/21 Dr. Pablo Mckay History of bilateral oophorectomy History of hernia surgery History of back surgery Hx of hysterectomy H/O cardiac catheterization Family History Father Hypertension Heart disease Mother Stroke Other Breast cancer Myocardial infarction No family history of adverse response to anesthesia No family history of bleeding disorder Denies family history of Ovarian cancer Prostate cancer Colorectal cancer Social History Smoking Status: Never smoker Second Hand Exposure: Yes; Do You Dip or Chew Tobacco: No; Hx Alcohol Use: No Hx Substance Use: No Preferred Language: Lebanese Communication Ability: Effective Software Product 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 Physical Exam . Physical examination: Constitutional: WD/WN, vitals as above no acute distress Musculoskeletal: On physical examination of the left hand, there is mild soft tissue edema and ecchymosis with no erythema, or other obvious deformities. Tenderness to palpation diffusely throughout the left hand. Limited range of motion strength at the wrist, and all 5 digits. +2 radial pulse. Less than 2-second capillary refill. Normal sensation. Neurovascular intact. Results & Data Results & Data Laboratory Results . Diagnostic Findings . Abnormal lab results 06/10/25 06/11/25 06/11/25 Range/Units 16:42 07:41 08:11 RBC 3.75 L (4.20-5.40) M/uL RDW Std Deviation 51.2 H (36.4-46.3) fL Potassium 3.4 L (3.5-5.1) mmol/L Carbon Dioxide 33 H (21-32) mmol/L BUN/Creatinine Ratio 24.7 H (10-20) Glucose 110 H (70-99(Fasting)) mg/dl POC Glucose 102 H 122 H (70-99) mg/dl 06/11/25 Range/Units 11:58 RBC (4.20-5.40) M/uL RDW Std Deviation (36.4-46.3) fL Potassium (3.5-5.1) mmol/L Carbon Dioxide (21-32) mmol/L BUN/Creatinine Ratio (10-20) Glucose (70-99(Fasting)) mg/dl POC Glucose 110 H (70-99) mg/dl Hand CT 06/11/25 09:56 Clinical history: Evaluate for fractures Technique: Axial computed tomography images were obtained of the left hand without intravenous contrast. Sagittal and coronal reconstructions were obtained Findings: There is an acute mildly displaced fracture of the radial aspect of the base of the fifth metacarpal. No subluxation or dislocation is seen. There is osteoarthritis of the thumb carpometacarpal interphalangeal, and metacarpophalangeal joints, and the distal interphalangeal joints of the fingers. No focal osseous lesion is evident The visualized musculature appears unremarkable. There is subcutaneous edema of the dorsum of the hand. No definite soft tissue mass or focal fluid collection is seen. No foreign body is evident Impression: 1. Fracture of the base of the left fifth metacarpal 2. Osteoarthritis Electronically signed by Raz Velazquez 06-11-2025 12:30 PM PG Care Time/CCT Total # of Minutes Spent Total Time Spent with Patient: Total time spent is greater than 50% in coordination of care (as documented) at patient's floor/unit and/or counseling patient: Coding Level of Care Code 84280 IN/OBS CONSULT LVL 3,45M Diagnoses Fracture of fifth metacarpal bone of left hand S62.307A
--- NOTE | 2025-06-11 15:07 | Discharge Summary ---
Date of Service June 11, 2025 Admission HPI Per Admitting Provider 74-year-old female with past medical history of left bundle branch block, diabetes type 2, hyperlipidemia, hypothyroidism, polymyalgia rheumatica, HFpEF, sick sinus syndrome, CAD, A-fib with pacemaker who presents for a mecahnical fall. Last visit was in 10/2024 for nausea/vomiting from atrial fibrillation, admitted by this provider. In the ED, had full trauma workup, found to have possible nasal fractures, large scalp left side hematoma noted, admitted to medicine for further workup. Patient seen and examined at bedside. Patient doing ok today. States she was doing work in the garden, got stuck in the garden foliage, and tripped. No LOC, no dizziness or other prodrome. Per patient able to see out of left eye when left eyelid is lifted up, which is quite painful. Feeling nauseous, vomiting, and dizzy. No burning with urination, chest pain, SOB, other associated symptoms. No alcohol use, no drug use, no tobacco use, full code discussed with patient. Admission Exam Per Admitting Provider Gen: A&O 3 NAD HEENT: left eye significant swelling/edema, surface cuts and bruises noted, able to see out of left eye when eyelid lifted up Neck: Supple, full range of motion, no observable masses, No meningeal sign. Lungs: No Respiratory distress. CV: RRR, no edema. Abdomen: Soft, nondistended, No rebound tenderness. MSK: No joint swelling, no redness. Skin: left hand eccymoses and swelling from fall Neuro: Normal Gait, Grossly intact. Psych: Appropriate for situation. Principal Diagnosis #Mechanical Fall #Large Left Upper Facial Hematoma #Left Eyelid Contusion #Nasal Fracture left metacarpal bone fracture Discharge Exam Constitutional: WD/WN, vitals as above, NAD, sitting up in bed, pleasant, conversing easily Head: Left forehead and periorbital hematoma and bruises. Respiratory: normal respiratory effort, lungs clear to auscultation, no wheeze, rales, rhonchi. Normal insp/exp effort, no accessory muscle use Cardiovascular: RRR, no murmur, no edema Vessels: no JVD or carotid bruit Chest: normal inspection of chest Abdomen: normal bowel sounds, soft, nontender, no hepatosplenomegaly Musculoskeletal: Ecchymosis of the left hand; Tenderness on metatarsal aspect of fifth finger Skin: no rashes, warm and dry normal turgor Neurologic: PERRL, EOMI, accommodation nl, no face palsy, no dysarthria CN's II- XI intact bilaterally and moves all extremities Psychiatric: A+Ox3, euthymic affect Discharge Data Allergies Allergy/AdvReac Type Severity Reaction Status Date / Time citalopram [From Celexa] Allergy Unknown Unknown Verified 06/29/24 14:36 Sulfa (Sulfonamide Allergy Unknown UNKNOWN Verified 06/29/24 14:36 Antibiotics) albuterol AdvReac Intermediate racing Verified 06/29/24 14:36 heart Consultations 06/09/25 16:22 ED Decision to Admit Stat 06/09/25 17:35 Consult Plastic Surgery Routine 06/11/25 12:58 Consult Orthopedic Surgery Routine Ordered Studies 06/09/25 12:45 CT cervical spine wo con Stat CT facial bones wo con Stat CT head/brain wo con Stat 06/09/25 14:36 CT chest diagnostic w con Stat 06/11/25 09:56 CT hand LT wo con Urgent Hospital Course (1) Concussion: (2) Nausea and vomiting: (3) Atrial fibrillation with rapid ventricular response: (4) Cardiac pacemaker in situ: (5) Hypothyroidism: (6) CAD (coronary artery disease): (7) PMR (polymyalgia rheumatica): (8) Obstructive sleep apnea (adult) (pediatric): (9) Unsteady gait when walking: (10) Multiple pulmonary nodules determined by computed tomography of lung: (11) GERD (gastroesophageal reflux disease): Plan 74-year-old female with past medical history of left bundle branch block, diabetes type 2, hyperlipidemia, hypothyroidism, polymyalgia rheumatica, HFpEF, sick sinus syndrome, CAD, A-fib with pacemaker who presents for a mechanical fall. #Mechanical Fall #Large Left Upper Facial Hematoma #Left Eyelid Contusion #Nasal Fracture Acute fracture of base of left fifth metacarpal Patient had mechanical fall; no prodrome, no symptoms prior, no LOC, remembers tripping Noted left eyelid contusion and hematoma confirmed by imaging along with nasal fracture Evaluated by registered nurse behavioral health-no indications for surgery. silver nitrate used to control the bleeding on the nasal bridge. X-ray of the left hand did not show any fractures; CT was done to rule out occul t fracture; found to have fracture of left fifth metacarpal. Evaluated by registered nurse behavioral health-no indications for surgery. silver nitrate used to control the bleeding on the nasal bridge. Patient pain was well-controlled with medication; her Eliquis and aspirin were kept on hold as per recommendation by oral surgery until the hematoma started to resolve. Orthopedic evaluated the patient for the fracture of the left fifth metacarpal bone; she was placed in ulnar gutter splint and patient to be followed up as outpatient with the orthopedic provider in 1 to 2 weeks Patient to follow-up with primary care doctor to discussion regarding resumption of Eliquis and aspirin. She was also prescribed prophylactic antibiotic. Patient discharged home. Please note the above document was generated using voice recognition software. It may contain grammatical, syntax or spelling errors. Any formal questions or concerns about the content, text or information contained within the body of this dictation should be directly addressed to the provider for clarification Total Time Total Time Spent Total Time Spent (In Minutes): 45 Total Time Includes: Examination of the Patient, Discharge Planning, Medication Reconciliation, Communication With Other Providers and Other Discharge Plan Discharge Items Patient Disposition: Home - Self-Care Reason For Visit: CONCUSSION Discharge Diagnosis: #Mechanical Fall #Large Left Upper Facial Hematoma #Left Eyelid Contusion #Nasal Fracture Condition on Discharge: Fair Activity: Resume your previous activity Non-emergency contact: Primary Care Provider Call non-emergency contact if: you have any medication questions and your symptoms worsen Follow-up/Referrals: Dylan Barros MD [Primary Care Provider] - Teo Aguilar DMD [Physician] - Diet: Regular Addtl Attending Provider Instructions: You were admitted to the hospital after a fall. You are found to have hematoma on left side of your forehead and facial contusion. Please continue to ice the area. Your blood thinner Eliquis and aspirin is currently on hold; please follow-up with your primary care doctor to resume them after the swelling has improved. An appointment will be set up for you. You are also prescribed Augmentin to be taken for 5 more days to complete antibiotic course. You are prescribed oxycodone to be taken for severe pain. You can take [id number] extra strength Tylenol up to 4 times a day for pain. You were evaluated by [facility] orthopedic team(Dr. Matt Oakley) for the fracture of the left hand. Continue the cast that is provided to you and follow-up with him in 1 to 2 weeks for further evaluation. Pending Studies at Discharge: No Stand-Alone Forms: My [facility], Smoking Cessation Medications and DC Order Prescriptions: New amoxicillin-pot clavulanate 875-125 mg Tablet 1 tab PO BIDM 5 Days Qty: 10 0RF Continued (DME) OneTouch Ultra Blue Test Strip Strip See Rx Instructions .ROUTE .MEDSUPPLY Qty: 100 5RF Rx Instructions: Please test once in the morning and once throughout day nitroglycerin 0.4 mg tablet, sublingual 0 mg SL Q5M PRN (Reason: Chest Pain) Patient Comments: 06/09- no fill history unable to verify Metamucil 3.4 gram/5.4 gram powder 1 tbs PO DAILY PRN (Reason: Constipation) Patient Comments: 06/09- otc unable to verify cholecalciferol (vitamin D3) 25 mcg (1,000 unit) capsule 2,000 unit PO QAM Patient Comments: 06/09- otc unable to verify multivitamin Tablet 1 tab PO QAM Patient Comments: 06/09- otc unable to verify hydrochlorothiazide 25 mg tablet 25 mg PO DAILY Hold Instructions: Hold for 2 days and then resume Jardiance 10 mg tablet 10 mg PO DAILY atorvastatin 20 mg tablet 20 mg PO HS lorazepam 1 mg Tablet 1 mg PO Q8H PRN (Reason: Anxiety) Patient Comments: last filled 10/04/24 10 day supply #30 metformin 500 mg tablet extended release 24 hr 500 mg PO QPM trazodone 50 mg tablet 25 mg PO QPM PRN (Reason: Sleep) potassium chloride 20 mEq tablet,ER particles/crystals 20 meq PO BID prednisone 1 mg tablet 2 mg PO DAILY Rx Instructions: taper dose moves down to 6mg on tuesday 10/31 sertraline 100 mg tablet 150 mg PO DAILY levalbuterol tartrate [Xopenex HFA] 45 mcg/actuation Hfa Aerosol Inhaler 2 puff inhalation Q4H PRN (Reason: shortness of breath or wheezing) 10 Days Qty: 15 1RF Patient Comments: last filled 09/27/24 17 day supply sotalol 80 mg tablet 80 mg PO BID Rx Instructions: can take extra tab as needed for tachycardia acetaminophen 500 mg tablet 0 mg PO TID Patient Comments: 06/09- otc unable to verify levothyroxine 50 mcg tablet 50 mcg PO UD Rx Instructions: Take 1.5 tablets every other day alternating with 1 tablet daily pantoprazole 40 mg tablet,delayed release (DR/EC) 0 mg PO QAM Patient Comments: Last filled 10/24/24 30 day supply #30 oxycodone 5 mg Tablet 5 mg PO Q6H PRN (Reason: pain, severe) Qty: 15 0RF Held Eliquis 5 mg tablet 5 mg PO BID Hold Instructions: Resume on 06/15/25. until you see your PCP aspirin 81 mg Tablet,Delayed Release (Dr/Ec) 81 mg PO DAILY Hold Instructions: Resume on 06/15/25. until you see your PCP Patient Comments: 06/09- otc unable to verify Discharge Orders: Discharge Order (Routine); Ordered 06/11/25 Ordered By: Travon Lazar Admission Data Admit Date/Time: 06/09/25 16:25 Attending Provider: Travon Lazar Admit Provider: Momo Thomas Primary Care Provider: Dylan Barros Other Providers: Momo Thomas; Teo Aguilar; Matt Oakley
[2025-06-11 15:32] VITALS: BP 125/80; TEMP 97.7; O2SAT 95
[2025-06-11 16:11] VITALS: PULSE 62
== END 2025-06-11 16:28 | disposition home or self-care (01) | DRG 89 ==
LOC: ED 12:19 → EDINP 16:25 → SUATTDRO 16:25 → 2N 21:16